=== PATIENT | male | born 1935 | race Caucasian/White ===

== ENCOUNTER 2018-03-09 16:22 | Emergency (ER) | payer MEDICARE ==
[2018-03-09] MEDS ORDERED: Sodium Chloride 0.9% 1000 ML 1,000 ML IV STA (16:47)
--- NOTE | 2018-03-09 16:47 | ERPHSYRPT ---
- History of Present Illness Time Seen by Provider: 03/09/18 16:40 Historian: patient Exam Limitations: no limitations Patient Subjective Stated Complaint: states has been having weakness and diarrhea for three to four days. denies fever. Triage Nursing Assessment: ambulated to room per self. skin w/d, color normal, resp easy. 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 Physician History: 82 y/o type 2 diabetic white male presents with 4 days of weakness and 2 days of diarrhea.pt has not had any vomiting but has had a little nausea. pt denies cp, soa and denies abd pain. Timing/Duration: day(s) (4 days of weakness and 2 days of diarrhea) Activities at Onset: none Abdominal Pain Onset Location: other (no abd pain) Pain Radiation: no radiation Severity of Pain-Max: none Severity of Pain-Current: none Modifying Factors: Improves With: nothing Associated Symptoms: diarrhea, loss of appetite, nausea, weakness, No back, No chest pain, No diaphoresis, No fever/chills, No fatigue, No neck pain, No rash, No shortness of breath, No syncope, No testicular pain, No vomiting Previous symptoms: no prior history Allergies/Adverse Reactions: No Known Drug Allergies Allergy (Verified 03/09/18 16:38) Home Medications: Acetaminophen [Tylenol Extra Strength] 1,000 mg PO DAILY 04/24/14 [History] Metformin HCl 500 mg [Glucophage 500 MG] 1,000 mg PO BID 04/24/14 [History ] Naproxen Sodium 220 mg [Aleve 220 MG] 1 tab PO DAILY 04/24/14 [History] Pravastatin Sodium 40 mg PO HS 04/24/14 [History] Tamsulosin HCl 0.4 mg [Flomax 0.4 MG] 0.4 mg PO DAILY 04/24/14 [History] Hx Tetanus, Diphtheria Vaccination/Date Given: No Hx Influenza Vaccination/Date Given: Yes Hx Pneumococcal Vaccination/Date Given: Yes Immunizations Up to Date: No - Review of Systems Constitutional: Weakness, No Fever, No Chills Eyes: No Symptoms, No Discharge, No Eye Pain Ears, Nose, & Throat: No Symptoms, No Ear Pain, No Nose Congestion, No Mouth Pain, No Painful Swallowing Respiratory: No Symptoms, No Dyspnea, No Stridor, No Wheezing Cardiac: No Symptoms, No Chest Pain, No Palpitations, No Syncope Abdominal/Gastrointestinal: Nausea, Diarrhea, Appetite Changes (not much appetite), No Abdominal Pain, No Vomiting Genitourinary Symptoms: No Symptoms, No Dysuria, No Frequency, No Hematuria Musculoskeletal: No Symptoms, No Back Pain, No Neck Pain, No Deformity, No Fall Skin: No Symptoms Neurological: No Symptoms Psychological: No Symptoms Endocrine: No Symptoms Hematologic/Lymphatic: No Symptoms Immunological/Allergic: No Symptoms All Other Systems: Reviewed and Negative - Past Medical History Pertinent Past Medical History: Yes Neurological History: No Pertinent History ENT History: No Pertinent History Cardiac History: High Cholesterol Respiratory History: No Pertinent History Endocrine Medical History: Diabetes Type II Musculoskeletal History: Arthritis GI Medical History: No Pertinent History History: No Pertinent History Psycho-Social History: No Pertinent History Male Reproductive Disorders: Prostate Problems - Past Surgical History Past Surgical History: Yes Neuro Surgical History: No Pertinent History Cardiac: No Pertinent History Respiratory: No Pertinent History Gastrointestinal: Appendectomy Genitourinary: No Pertinent History Musculoskeletal: Other Male Surgical History: No Pertinent History Other Surgical History: TONSILS. achilles tendon - Social History Smoking Status: Never smoker Exposure to second hand smoke: No Drug Use: none Patient Lives Alone: No - Nursing Vital Signs Nursing Vital Signs: Initial Vital Signs Temperature 99.5 F 03/09/18 16:28 Pulse Rate 100 H 03/09/18 16:28 Respiratory Rate 16 03/09/18 16:28 Blood Pressure 119/79 03/09/18 16:28 O2 Sat by Pulse Oximetry 98 03/09/18 16:28 Pain Scale Pain Intensity 0 - Physical Exam General Appearance: no apparent distress, alert, anxiety Eye Exam: PERRL/EOMI, eyes nml inspection Ears, Nose, Throat Exam: normal ENT inspection, moist mucous membranes Neck Exam: normal inspection, non-tender, supple, full range of motion Respiratory Exam: normal breath sounds, lungs clear, airway intact, No chest tenderness, No respiratory distress, No accessory muscle use, No rhonchi, No wheezing, No stridor Cardiovascular Exam: regular rate/rhythm, normal heart sounds, normal peripheral pulses Gastrointestinal/Abdomen Exam: soft, normal bowel sounds, No tenderness, No guarding, No rebound Rectal Exam: not done Back Exam: normal inspection, normal range of motion, No CVA tenderness, No vertebral tenderness, No muscle spasm Extremity Exam: normal inspection, normal range of motion, pelvis stable Neurologic Exam: alert, oriented x 3, cooperative, mover II-XII nml as tested, normal mood/affect, nml cerebellar function, nml station & gait Skin Exam: normal color, warm, dry Lymphatic Exam: No adenopathy SpO2 Interpretation: normal SpO2: 98 Oxygen Delivery: Room Air - Course Nursing assessment & vital signs reviewed: Yes Ordered Tests: Active Orders 24 hr Category Date Time Status IV Insertion STAT Care 03/09/18 16:47 Active AMYLASE Stat Lab 03/09/18 17:00 Completed CBC W DIFF Stat Lab 03/09/18 17:00 Completed CMP Stat Lab 03/09/18 17:00 Completed LIPASE Stat Lab 03/09/18 17:00 Completed Lactic Acid Stat Lab 03/09/18 16:47 Completed UA W/RFX UR CULTURE Stat Lab 03/09/18 18:22 Results Medication Summary Discontinued Medications Generic Name Dose Route Start Last Admin Trade Name Freq PRN Reason Stop Dose Admin Sodium Chloride 1,000 mls @ 999 mls/hr 03/09/18 16:47 03/09/18 16:58 Sodium Chloride 0.9% 1000 Ml IV 03/09/18 17:47 999 mls/hr .Q1H1M STA Administration Sodium Chloride Confirm 03/09/18 16:56 Sodium Chloride 0.9% 1000 Ml Administered 03/09/18 16:57 Dose 1,000 mls @ ud .ROUTE .STK-MED ONE Lab/Rad Data: Laboratory Result Diagrams 03/09/18 17:00 03/09/18 17:00 Laboratory Results 03/09/18 03/09/18 03/09/18 Range/Units 18:22 17:00 17:00 WBC 6.4 (4.0-10.5) K/mm3 RBC 4.38 (4.1-5.6) M/mm3 Hgb 14.6 (12.5-18.0) gm/dl Hct 42.0 (42-50) % MCV 95.9 (78-100) fl MCH 33.3 H (26-32) pg MCHC 34.8 (32-36) g/dl RDW 13.6 (11.5-14.0) % Plt Count 141 L (150-450) K/mm3 MPV 9.4 (6-9.5) fl Gran % 73.8 H (36.0-66.0) % Eos # (Auto) 0.07 (0-0.5) Absolute Lymphs (auto) 0.99 L (1.0-4.6) Absolute Monos (auto) 0.58 (0.0-1.3) Lymphocytes % 15.5 L (24.0-44.0) % Monocytes % 9.1 (0.0-12.0) % Eosinophils % 1.1 (0.00-5.0) % Basophils % 0.5 (0.0-0.4) % Absolute Granulocytes 4.71 (1.4-6.9) Basophils # 0.03 (0-0.4) Sodium 134 L* (137-145) mmol/L Potassium 4.6 (3.5-5.1) mmol/L Chloride 104 (98-107) mmol/L Carbon Dioxide 22 (22-30) mmol/L Anion Gap 13.2 (5-15) MEQ/L BUN 24 H (9-20) mg/dL Creatinine 0.78 (0.66-1.25) mg/dL Estimated GFR > 60.0 ML/MIN Glucose 128 H (74-106) mg/dL Lactic Acid (0.4-2.0) Calcium 8.8 (8.4-10.2) mg/dL Total Bilirubin 0.50 (0.2-1.3) mg/dL AST 34 (17-59) U/L ALT 15 (0-50) U/L Alkaline Phosphatase 77 (38-126) U/L Serum Total Protein 6.2 L (6.3-8.2) g/dL Albumin 3.6 (3.5-5.0) g/dL Amylase 47 (30-110) U/L Lipase 52 (23-300) U/L Urine Color YELLOW (YELLOW) Urine Appearance SLIGHTLY CLOUDY (CLEAR) Urine pH 5.0 (5-6) Ur Specific [place] 1.025 (1.005-1.025) Urine Protein NEGATIVE (Negative) Urine Ketones TRACE (NEGATIVE) Urine Blood NEGATIVE (0-5) Bronson/ul Urine Nitrite NEGATIVE (NEGATIVE) Urine Bilirubin NEGATIVE (NEGATIVE) Urine Urobilinogen NEGATIVE (0-1) mg/dL Ur Leukocyte Esterase NEGATIVE (NEGATIVE) Urine WBC (Auto) 6-10 (0-5) /HPF Urine RBC (Auto) 3-5 (0-2) /HPF U Hyaline Cast (Auto) 3-5 (0-2) /LPF U Epithel Cells (Auto) Pending Other Casts (Auto) NEGATIVE (NEGATIVE) /LPF Urine Mucus (Auto) MODERATE (NEGATIVE) /HPF Urine Culture Reflexed NO (NO) Urine Glucose NEGATIVE (NEGATIVE) mg/dL 03/09/18 Range/Units 16:47 WBC (4.0-10.5) K/mm3 RBC (4.1-5.6) M/mm3 Hgb (12.5-18.0) gm/dl Hct (42-50) % MCV (78-100) fl MCH (26-32) pg MCHC (32-36) g/dl RDW (11.5-14.0) % Plt Count (150-450) K/mm3 MPV (6-9.5) fl Gran % (36.0-66.0) % Eos # (Auto) (0-0.5) Absolute Lymphs (auto) (1.0-4.6) Absolute Monos (auto) (0.0-1.3) Lymphocytes % (24.0-44.0) % Monocytes % (0.0-12.0) % Eosinophils % (0.00-5.0) % Basophils % (0.0-0.4) % Absolute Granulocytes (1.4-6.9) Basophils # (0-0.4) Sodium (137-145) mmol/L Potassium (3.5-5.1) mmol/L Chloride (98-107) mmol/L Carbon Dioxide (22-30) mmol/L Anion Gap (5-15) MEQ/L BUN (9-20) mg/dL Creatinine (0.66-1.25) mg/dL Estimated GFR ML/MIN Glucose (74-106) mg/dL Lactic Acid 1.1 (0.4-2.0) Calcium (8.4-10.2) mg/dL Total Bilirubin (0.2-1.3) mg/dL AST (17-59) U/L ALT (0-50) U/L Alkaline Phosphatase (38-126) U/L Serum Total Protein (6.3-8.2) g/dL Albumin (3.5-5.0) g/dL Amylase (30-110) U/L Lipase (23-300) U/L Urine Color (YELLOW) Urine Appearance (CLEAR) Urine pH (5-6) Ur Specific [place] (1.005-1.025) Urine Protein (Negative) Urine Ketones (NEGATIVE) Urine Blood (0-5) Bronson/ul Urine Nitrite (NEGATIVE) Urine Bilirubin (NEGATIVE) Urine Urobilinogen (0-1) mg/dL Ur Leukocyte Esterase (NEGATIVE) Urine WBC (Auto) (0-5) /HPF Urine RBC (Auto) (0-2) /HPF U Hyaline Cast (Auto) (0-2) /LPF U Epithel Cells (Auto) Other Casts (Auto) (NEGATIVE) /LPF Urine Mucus (Auto) (NEGATIVE) /HPF Urine Culture Reflexed (NO) Urine Glucose (NEGATIVE) mg/dL - Progress Progress: unchanged, re-examined Counseled pt/family regarding: lab results, diagnosis, need for follow-up - Departure Time of Disposition: 18:47 Departure Disposition: Home Clinical Impression: Colitis Condition: Stable Critical Care Time: No Referrals: ROWENA VIEYRA MD [Primary Care Provider] - Additional Instructions: drink plenty of fluids. take medications as prescribed. follow up with primary doctor for further management and referral for colonoscopy as indicated. return to ED if symptoms worsen Prescriptions: Metronidazole 500 mg [Flagyl 500 MG] 500 mg PO TID #21 tablet Ondansetron HCl [Zofran] 4 mg PO TID PRN #10 tablet PRN Reason: Nausea/Vomiting
[2018-03-09] MEDS ORDERED: Sodium Chloride 0.9% 1000 ML 1,000 ML ONE (16:56)
[2018-03-09 17:08] LABS: BASOPHIL % 0.5 % (0.0-0.4); Basophil (Absolute #) 0.03 (0-0.4); Eosinophil % 1.1 % (0.00-5.0); Eosinophil (Absolute #) 0.07 (0-0.5); Granulocyte Absolute (ANC) 4.71 (1.4-6.9); Granulocytes % 73.8 % (36.0-66.0); Hemoglobin 14.6 gm/dl (12.5-18.0); Lymphocyte (Absolute #) 0.99 (1.0-4.6); Lymphocytes % 15.5 % (24.0-44.0); Mean Cell Volume 95.9 fl (78-100); Mean Corpuscular Hemoglobin 33.3 pg (26-32); Mean Corpuscular Hgb Concent. 34.8 g/dl (32-36); Mean Platelet Volume 9.4 fl (6-9.5); Monocyte (Absolute #) 0.58 (0.0-1.3); Monocytes % 9.1 % (0.0-12.0); Platelet Count 141 K/mm3 (150-450); Red Blood Count 4.38 M/mm3 (4.1-5.6); Red Cell Distribution Width 13.6 % (11.5-14.0); White Blood Count 6.4 K/mm3 (4.0-10.5)
[2018-03-09 17:32] LABS: ALBUMIN 3.6 g/dL (3.5-5.0); ALKALINE PHOSPHATASE 77 U/L (38-126); AMYLASE 47 U/L (30-110); ANION GAP 13.2 MEQ/L (5-15); BLOOD UREA NITROGEN 24 mg/dL (9-20); CHLORIDE 104 mmol/L (98-107); Calcium 8.8 mg/dL (8.4-10.2); Carbon Dioxide 22 mmol/L (22-30); Creatinine 1 0.78 mg/dL (0.66-1.25); Glucose 128 mg/dL (74-106); LIPASE 52 U/L (23-300); Potassium 4.6 mmol/L (3.5-5.1); SGOT/AST 34 U/L (17-59); SGPT/ALT 15 U/L (0-50); SODIUM 134 mmol/L (137-145); Total Protein 6.2 g/dL (6.3-8.2)
[2018-03-09 18:33] LABS: Appearance SLIGHTLY CLOUDY (CLEAR); Bilirubin NEGATIVE (NEGATIVE); Blood NEGATIVE Ery/ul (0-5); Glucose NEGATIVE (NEGATIVE); Ketones TRACE (NEGATIVE); Leukocyte Esterase NEGATIVE (NEGATIVE); Nitrite NEGATIVE (NEGATIVE); Protein,Urine Dip NEGATIVE (Negative); Specific Gravity 1.025 (1.005-1.025); Urobilinogen NEGATIVE mg/dL (0-1)
[2018-03-09] MEDS ORDERED: Flagyl 500 MG PO ONE (18:50)
[2018-03-09] MEDS ORDERED: ZOFRAN ODT 4 MG PO ONE (18:50)
[2018-03-09] MEDS ORDERED: ZOFRAN ODT 4 MG ONE (18:53)
[2018-03-09] MEDS ORDERED: Flagyl 500 MG ONE (18:53)
[2018-03-09 18:58] VITALS: BP 138/84
[2018-03-09 19:00] VITALS: PULSE 74; O2SAT 96
== END 2018-03-09 19:09 | disposition home or self-care (01) ==
LOC: ED 16:22
DX: K52.9 Noninfective gastroenteritis and colitis, unspecified (principal); R53.1 Weakness; R11.0 Nausea; Z79.899 Other long term (current) drug therapy; E11.9 Type 2 diabetes mellitus without complications; Z79.84 Long term (current) use of oral hypoglycemic drugs
CPT/HCPCS: 36000; 36415; 80053; 81001; 82150; 83605; 83690; 85025; 96360; 99284; Q0162; A9270-GY

== ENCOUNTER 2019-01-04 19:02 | Inpatient (IN) | payer MEDICARE ==
--- NOTE | 2019-01-04 19:29 | ERPHSYRPT ---
- History of Present Illness Time Seen by Provider: 01/04/19 19:29 Source: patient, family Exam Limitations: no limitations Patient Subjective Stated Complaint: hypotension Triage Nursing Assessment: Patient brought back to ED via w/c and transferred to bed with assist of 1. Patient complains of low blood pressure for a few hours. Patient states he has felt light headed and unable to stand well. Patient states he has been nauseous and vomitted X 1. Patient's lungs clear a/ p lalo. No edema noted. Heart tones audible. Patient denies pain or discomfort. Patient states he had a cardiac cath 3 weeks ago and received five stents at [facility] by Dr. Peralta. Physician History: 83 y/o white male with h/o niddm presents with weakness and assoc nausea with vomiting x1 today. no cp, no soa, no abd pain. pt is on anticoag tx. in the last 3 months pt had 5 cardiac stents placed by dr. peralta. pt doesnt eat or drink much ordinarily but less today. pt has not been vomiting, pooping or peeing blood. Timing/Duration: today, worse Severity: moderate Associated Symptoms: nausea, vomiting, loss of appetite, weakness, No abdominal pain, No shortness of breath, No chest pain Allergies/Adverse Reactions: No Known Drug Allergies Allergy (Verified 01/04/19 19:18) Home Medications: Tamsulosin HCl 0.4 mg [Flomax 0.4 MG] 0.4 mg PO DAILY 04/24/14 [History] Atorvastatin Calcium [Lipitor 20MG Tablet] 20 mg PO DAILY 01/04/19 [History] Clopidogrel Bisulfate [Clopidogrel] 75 mg PO DAILY 01/04/19 [History] Diphenoxylate HCl/Atropine [Diphenoxylate-Atrop 2.5-0.025] 1 each PO DAILY 01/04 [History] Finasteride 5 mg PO DAILY 01/04/19 [History] Glipizide/Metformin HCl [Glipizide-Metformin 5-500 mg] 1 each PO TID 01/04/19 [ History] Lisinopril 20 mg [Zestril 20 MG] 20 mg PO DAILY 01/04/19 [History] Sildenafil Citrate [Sildenafil] 20 mg PO UD 01/04/19 [History] Tadalafil 5 mg PO DAILY 01/04/19 [History] Hx Tetanus, Diphtheria Vaccination/Date Given: No Hx Influenza Vaccination/Date Given: Yes Hx Pneumococcal Vaccination/Date Given: Yes Immunizations Up to Date: Yes - Review of Systems Constitutional: Weakness Eyes: No Symptoms Ears, Nose, & Throat: No Symptoms Respiratory: No Symptoms Cardiac: No Symptoms Abdominal/Gastrointestinal: Nausea, Vomiting, No Abdominal Pain Genitourinary Symptoms: No Symptoms Musculoskeletal: No Symptoms Skin: No Symptoms Neurological: No Symptoms Psychological: No Symptoms Endocrine: No Symptoms Hematologic/Lymphatic: No Symptoms Immunological/Allergic: No Symptoms All Other Systems: Reviewed and Negative - Past Medical History Pertinent Past Medical History: Yes Neurological History: No Pertinent History ENT History: No Pertinent History Cardiac History: High Cholesterol Respiratory History: No Pertinent History Endocrine Medical History: Diabetes Type II Musculoskeletal History: Arthritis GI Medical History: No Pertinent History History: No Pertinent History Psycho-Social History: No Pertinent History Male Reproductive Disorders: Prostate Problems - Past Surgical History Past Surgical History: Yes Neuro Surgical History: No Pertinent History Cardiac: Cardiac Catheterization, Cardiac Stent Respiratory: No Pertinent History Gastrointestinal: Appendectomy Genitourinary: No Pertinent History Musculoskeletal: Other Male Surgical History: No Pertinent History Other Surgical History: TONSILS. achilles tendon - Social History Smoking Status: Never smoker Exposure to second hand smoke: No Drug Use: none Patient Lives Alone: No - Nursing Vital Signs Nursing Vital Signs: Initial Vital Signs Temperature 100.5 F 01/04/19 19:18 Pulse Rate 106 H 01/04/19 19:18 Respiratory Rate 15 01/04/19 19:18 Blood Pressure 85/52 01/04/19 19:18 O2 Sat by Pulse Oximetry 95 01/04/19 19:18 Pain Scale Pain Intensity 0 - Physical Exam General Appearance: no apparent distress, alert, anxiety Eye Exam: PERRL/EOMI, eyes nml inspection Ears, Nose, Throat Exam: normal ENT inspection, moist mucous membranes Neck Exam: normal inspection, non-tender, supple, full range of motion Respiratory Exam: normal breath sounds, lungs clear, airway intact, No chest tenderness, No respiratory distress Cardiovascular Exam: regular rate/rhythm, normal heart sounds, normal peripheral pulses Gastrointestinal/Abdomen Exam: soft, normal bowel sounds, No tenderness Rectal Exam: not done Back Exam: normal inspection, normal range of motion, No CVA tenderness, No vertebral tenderness Extremity Exam: normal inspection, normal range of motion, pelvis stable Neurologic Exam: alert, oriented x 3, cooperative, mask inspector II-XII nml as tested, normal mood/affect, nml cerebellar function, sensation nml Skin Exam: normal color, warm, dry Lymphatic Exam: No adenopathy SpO2 Interpretation: borderline oxygenation SpO2: 95 O2 Delivery: Room Air - Course Nursing assessment & vital signs reviewed: Yes EKG Interpreted by Me: RATE (100), Sinus Rhythm, Other (sI/qIII pattern. new 1st degree av block compared to ekg dated 04/24/14) Ordered Tests: Active Orders 24 hr Category Date Time Status Data Transcriber STAT Care 01/04/19 19:45 Active EKG-ER Only STAT Care 01/04/19 19:44 Active CHEST 1 VIEW (PORTABLE) Stat Exams 01/04/19 19:45 Taken CHEST WITH CONTRAST [CT] Stat Exams 01/04/19 20:44 Taken BLOOD CULTURE Stat Lab 01/04/19 20:07 Received CBC W DIFF Stat Lab 01/04/19 20:07 Completed CMP Stat Lab 01/04/19 20:07 Completed CULTURE,URINE Stat Lab 01/04/19 21:54 Received D-DIMER QUANTITATION Stat Lab 01/04/19 20:07 Completed Lactic Acid Stat Lab 01/04/19 20:32 Completed Lactic Acid Stat Lab 01/04/19 23:10 Completed NT PRO BNP Stat Lab 01/04/19 20:07 Completed PROTIME WITH INR Stat Lab 01/04/19 20:07 Completed TROPONIN Q3H Lab 01/04/19 20:07 Completed TROPONIN Q3H Lab 01/04/19 22:32 Completed TROPONIN Q3H Lab 01/05/19 01:45 Ordered TROPONIN Q3H Lab 01/05/19 04:45 Ordered TROPONIN Q3H Lab 01/05/19 07:45 Ordered UA W/RFX UR CULTURE Stat Lab 01/04/19 21:54 Completed Transfer Order Routine Transfer 01/04/19 Ordered Medication Summary Generic Name Dose Route Start Last Admin Trade Name Freq PRN Reason Stop Dose Admin Levofloxacin/Dextrose 500 mg in 100 mls @ 100 mls/hr 01/04/19 22:50 01/04/19 22:58 Levofloxacin 500mg/100ml D5w IV 01/04/19 23:49 100 mls/hr STAT STA 100 mls/hr Administration Discontinued Medications Generic Name Dose Route Start Last Admin Trade Name Martha PRN Reason Stop Dose Admin Sodium Chloride 1,000 mls @ 999 mls/hr 01/04/19 19:44 01/04/19 21:01 Sodium Chloride 0.9% 1000 Ml IV 01/04/19 20:44 Infused .Q1H1M STA Infusion Sodium Chloride Confirm 01/04/19 19:51 Sodium Chloride 0.9% 1000 Ml Administered 01/04/19 19:52 Dose 1,000 mls @ ud .ROUTE .STK-MED ONE Meropenem 1 g/ Sodium Chloride 100 mls @ 200 mls/hr 01/04/19 20:45 01/04/19 22:36 IV 01/04/19 21:14 Infused STAT STA Infusion Sodium Chloride 1,000 mls @ 999 mls/hr 01/04/19 20:45 01/04/19 22:36 Sodium Chloride 0.9% 1000 Ml IV 01/04/19 21:45 Infused .Q1H1M STA Infusion Sodium Chloride Confirm 01/04/19 21:03 Sodium Chloride 0.9% 100 Ml Ivpb Administered 01/04/19 21:04 Dose 100 mls @ ud IV .STK-MED ONE Sodium Chloride Confirm 01/04/19 21:03 Sodium Chloride 0.9% 1000 Ml Administered 01/04/19 21:04 Dose 1,000 mls @ ud .ROUTE .STK-MED ONE Levofloxacin/Dextrose Confirm 01/04/19 22:57 Levofloxacin 500mg/100ml D5w Administered 01/04/19 22:58 Dose 500 mg in 100 mls @ ud IV .STK-MED ONE Meropenem Confirm 01/04/19 21:02 Merrem 1 Gm Administered 01/04/19 21:03 Dose 1 g IV .STK-MED ONE Ondansetron HCl 4 mg 01/04/19 19:46 01/04/19 19:53 Zofran 4 Mg/2 Ml Vial IV 01/04/19 19:47 4 mg STAT ONE Administration Ondansetron HCl Confirm 01/04/19 19:51 Zofran 4 Mg/2 Ml Vial Administered 01/04/19 19:52 Dose 4 mg .ROUTE .STK-MED ONE Lab/Rad Data: Laboratory Result Diagrams 01/04/19 20:07 01/04/19 20:07 Laboratory Results 01/04/19 01/04/19 01/04/19 Range/Units 23:10 22:32 21:54 WBC (4.0-10.5) K/mm3 RBC (4.1-5.6) M/mm3 Hgb (12.5-18.0) gm/dl Hct (42-50) % MCV (78-100) fl MCH (26-32) pg MCHC (32-36) g/dl RDW (11.5-14.0) % Plt Count (150-450) K/mm3 MPV (6-9.5) fl Gran % (36.0-66.0) % Eos # (Auto) (0-0.5) Absolute Lymphs (auto) (1.0-4.6) Absolute Monos (auto) (0.0-1.3) Lymphocytes % (24.0-44.0) % Monocytes % (0.0-12.0) % Eosinophils % (0.00-5.0) % Basophils % (0.0-0.4) % Absolute Granulocytes (1.4-6.9) Basophils # (0-0.4) PT (8.83-12.87) SECONDS INR (0.8-3.0) D-Dimer (215-500) ng/mL Sodium (137-145) mmol/L Potassium (3.5-5.1) mmol/L Chloride (98-107) mmol/L Carbon Dioxide (22-30) mmol/L Anion Gap (5-15) MEQ/L BUN (9-20) mg/dL Creatinine (0.66-1.25) mg/dL Estimated GFR ML/MIN Glucose (74-106) mg/dL Lactic Acid 1.0 (0.4-2.0) Calcium (8.4-10.2) mg/dL Total Bilirubin (0.2-1.3) mg/dL AST (17-59) U/L ALT (0-50) U/L Alkaline Phosphatase (38-126) U/L Troponin I 0.014 (0.000-0.034) ng/mL NT-Pro-B Natriuret Pep (0-1800) pg/mL Serum Total Protein (6.3-8.2) g/dL Albumin (3.5-5.0) g/dL Urine Color EMRE (YELLOW) Urine Appearance CLOUDY (CLEAR) Urine pH 5.0 (5-6) Ur Specific [place] 1.035 (1.005-1.025) Urine Protein 100 (Negative) Urine Ketones TRACE (NEGATIVE) Urine Blood MODERATE (0-5) Bronson/ul Urine Nitrite NEGATIVE (NEGATIVE) Urine Bilirubin NEGATIVE (NEGATIVE) Urine Urobilinogen NEGATIVE (0-1) mg/dL Ur Leukocyte Esterase MODERATE (NEGATIVE) Urine WBC (Auto) >100 (0-5) /HPF Urine RBC (Auto) 26-50 (0-2) /HPF U Hyaline Cast (Auto) 3-5 (0-2) /LPF U Epithel Cells (Auto) RARE (FEW) /HPF Urine Bacteria (Auto) RARE (NEGATIVE) /HPF Urine Mucus (Auto) MANY (NEGATIVE) /HPF Urine Culture Reflexed YES (NO) Urine Glucose NEGATIVE (NEGATIVE) mg/dL Slides for Path Review 01/04/19 01/04/19 01/04/19 Range/Units 20:32 20:07 20:07 WBC (4.0-10.5) K/mm3 RBC (4.1-5.6) M/mm3 Hgb (12.5-18.0) gm/dl Hct (42-50) % MCV (78-100) fl MCH (26-32) pg MCHC (32-36) g/dl RDW (11.5-14.0) % Plt Count (150-450) K/mm3 MPV (6-9.5) fl Gran % (36.0-66.0) % Eos # (Auto) (0-0.5) Absolute Lymphs (auto) (1.0-4.6) Absolute Monos (auto) (0.0-1.3) Lymphocytes % (24.0-44.0) % Monocytes % (0.0-12.0) % Eosinophils % (0.00-5.0) % Basophils % (0.0-0.4) % Absolute Granulocytes (1.4-6.9) Basophils # (0-0.4) PT 13.6 H (8.83-12.87) SECONDS INR 1.20 (0.8-3.0) D-Dimer 1139 H* (215-500) ng/mL Sodium (137-145) mmol/L Potassium (3.5-5.1) mmol/L Chloride (98-107) mmol/L Carbon Dioxide (22-30) mmol/L Anion Gap (5-15) MEQ/L BUN (9-20) mg/dL Creatinine (0.66-1.25) mg/dL Estimated GFR ML/MIN Glucose (74-106) mg/dL Lactic Acid 2.2 H (0.4-2.0) Calcium (8.4-10.2) mg/dL Total Bilirubin (0.2-1.3) mg/dL AST (17-59) U/L ALT (0-50) U/L Alkaline Phosphatase (38-126) U/L Troponin I 0.018 (0.000-0.034) ng/mL NT-Pro-B Natriuret Pep (0-1800) pg/mL Serum Total Protein (6.3-8.2) g/dL Albumin (3.5-5.0) g/dL Urine Color (YELLOW) Urine Appearance (CLEAR) Urine pH (5-6) Ur Specific [place] (1.005-1.025) Urine Protein (Negative) Urine Ketones (NEGATIVE) Urine Blood (0-5) Bronson/ul Urine Nitrite (NEGATIVE) Urine Bilirubin (NEGATIVE) Urine Urobilinogen (0-1) mg/dL Ur Leukocyte Esterase (NEGATIVE) Urine WBC (Auto) (0-5) /HPF Urine RBC (Auto) (0-2) /HPF U Hyaline Cast (Auto) (0-2) /LPF U Epithel Cells (Auto) (FEW) /HPF Urine Bacteria (Auto) (NEGATIVE) /HPF Urine Mucus (Auto) (NEGATIVE) /HPF Urine Culture Reflexed (NO) Urine Glucose (NEGATIVE) mg/dL Slides for Path Review 01/04/19 01/04/19 Range/Units 20:07 20:07 WBC 25.9 H* (4.0-10.5) K/mm3 RBC 3.96 L (4.1-5.6) M/mm3 Hgb 13.2 (12.5-18.0) gm/dl Hct 37.9 L (42-50) % MCV 95.7 (78-100) fl MCH 33.3 H (26-32) pg MCHC 34.8 (32-36) g/dl RDW 13.9 (11.5-14.0) % Plt Count 192 (150-450) K/mm3 MPV 9.1 (6-9.5) fl Gran % 88.0 H (36.0-66.0) % Eos # (Auto) 0.02 (0-0.5) Absolute Lymphs (auto) 1.27 (1.0-4.6) Absolute Monos (auto) 1.79 H (0.0-1.3) Lymphocytes % 4.9 L (24.0-44.0) % Monocytes % 6.9 (0.0-12.0) % Eosinophils % 0.1 (0.00-5.0) % Basophils % 0.1 (0.0-0.4) % Absolute Granulocytes 22.80 H (1.4-6.9) Basophils # 0.02 (0-0.4) PT (8.83-12.87) SECONDS INR (0.8-3.0) D-Dimer (215-500) ng/mL Sodium 134 L (137-145) mmol/L Potassium 4.6 (3.5-5.1) mmol/L Chloride 100 (98-107) mmol/L Carbon Dioxide 25 (22-30) mmol/L Anion Gap 13.3 (5-15) MEQ/L BUN 25 H (9-20) mg/dL Creatinine 1.13 (0.66-1.25) mg/dL Estimated GFR > 60.0 ML/MIN Glucose 211 H (74-106) mg/dL Lactic Acid (0.4-2.0) Calcium 9.1 (8.4-10.2) mg/dL Total Bilirubin 0.80 (0.2-1.3) mg/dL AST 22 (17-59) U/L ALT 16 (0-50) U/L Alkaline Phosphatase 63 (38-126) U/L Troponin I (0.000-0.034) ng/mL NT-Pro-B Natriuret Pep 1440 (0-1800) pg/mL Serum Total Protein 6.6 (6.3-8.2) g/dL Albumin 3.7 (3.5-5.0) g/dL Urine Color (YELLOW) Urine Appearance (CLEAR) Urine pH (5-6) Ur Specific [place] (1.005-1.025) Urine Protein (Negative) Urine Ketones (NEGATIVE) Urine Blood (0-5) Bronson/ul Urine Nitrite (NEGATIVE) Urine Bilirubin (NEGATIVE) Urine Urobilinogen (0-1) mg/dL Ur Leukocyte Esterase (NEGATIVE) Urine WBC (Auto) (0-5) /HPF Urine RBC (Auto) (0-2) /HPF U Hyaline Cast (Auto) (0-2) /LPF U Epithel Cells (Auto) (FEW) /HPF Urine Bacteria (Auto) (NEGATIVE) /HPF Urine Mucus (Auto) (NEGATIVE) /HPF Urine Culture Reflexed (NO) Urine Glucose (NEGATIVE) mg/dL Slides for Path Review YES - Progress Progress: improved, re-examined Progress Note: 01/04/19 23:33 cta chest-report given as pulmonary fibrosis,scarring spoke with dr. vieyra. i reviewed pt hx, condition, labs, ekg, xray results. he accepts pt for admission. continue meropenem until cx returns Discussed with : Lane Counseled pt/family regarding: lab results, diagnosis, need for follow-up, rad results - Departure Departure Disposition: In-patient Admission Clinical Impression: Sepsis, Hypotension Condition: Stable Critical Care Time: Yes Critical Care Time(excluding separately billable procedures): 30-74 minutes Referrals: ROWENA VIEYRA MD [Primary Care Provider] -
[2019-01-04] MEDS ORDERED: Sodium Chloride 0.9% 1000 ML 1,000 ML IV STA ×2 (19:44→20:45)
[2019-01-04] MEDS ORDERED: Zofran 4 MG/2 ML VIAL IV ONE (19:46)
[2019-01-04] MEDS ORDERED: Zofran 4 MG/2 ML VIAL ONE (19:51)
[2019-01-04] MEDS ORDERED: Sodium Chloride 0.9% 1000 ML 1,000 ML ONE ×2 (19:51→21:03)
[2019-01-04 20:18] LABS: BASOPHIL % 0.1 % (0.0-0.4); Basophil (Absolute #) 0.02 (0-0.4); Eosinophil % 0.1 % (0.00-5.0); Eosinophil (Absolute #) 0.02 (0-0.5); Hematocrit 37.9 % (42-50); Hemoglobin 13.2 gm/dl (12.5-18.0); Lymphocyte (Absolute #) 1.27 (1.0-4.6); Lymphocytes % 4.9 % (24.0-44.0); Mean Cell Volume 95.7 fl (78-100); Mean Corpuscular Hemoglobin 33.3 pg (26-32); Mean Corpuscular Hgb Concent. 34.8 g/dl (32-36); Mean Platelet Volume 9.1 fl (6-9.5); Monocyte (Absolute #) 1.79 (0.0-1.3); Monocytes % 6.9 % (0.0-12.0); Platelet Count 192 K/mm3 (150-450); Red Blood Count 3.96 M/mm3 (4.1-5.6); Red Cell Distribution Width 13.9 % (11.5-14.0)
[2019-01-04 20:19] LABS: INR 1.2 (0.8-3.0); PROTIME 13.6 SECONDS (8.83-12.87); White Blood Count 25.9 K/mm3 (4.0-10.5)
[2019-01-04 20:30] LABS: ALBUMIN 3.7 g/dL (3.5-5.0); ALKALINE PHOSPHATASE 63 U/L (38-126); ANION GAP 13.3 MEQ/L (5-15); BLOOD UREA NITROGEN 25 mg/dL (9-20); CHLORIDE 100 mmol/L (98-107); Calcium 9.1 mg/dL (8.4-10.2); Carbon Dioxide 25 mmol/L (22-30); Creatinine 1 1.13 mg/dL (0.66-1.25); Glucose 211 mg/dL (74-106); NT PRO BNP 1440 pg/mL (0-1800); Potassium 4.6 mmol/L (3.5-5.1); SGOT/AST 22 U/L (17-59); SGPT/ALT 16 U/L (0-50); SODIUM 134 mmol/L (137-145); Total Protein 6.6 g/dL (6.3-8.2)
[2019-01-04 20:41] LABS: Lactic Acid 2.2 (0.4-2.0)
[2019-01-04] MEDS ORDERED: Merrem 1 GM 1 G in Sodium Chloride 100ML MINI-BAG PLUS 100 ML IV STA (20:45)
[2019-01-04] MEDS ORDERED: Merrem 1 GM IV ONE (21:02)
[2019-01-04] MEDS ORDERED: Sodium Chloride 0.9% 100 ML IVPB 100 ML IV ONE (21:03)
[2019-01-04 22:00] LABS: Appearance CLOUDY (CLEAR); Bacteria RARE /HPF (NEGATIVE); Bilirubin NEGATIVE (NEGATIVE); Blood MODERATE Ery/ul (0-5); Epithelial Cells RARE /HPF (FEW); Glucose NEGATIVE (NEGATIVE); Ketones TRACE (NEGATIVE); Leukocyte Esterase MODERATE (NEGATIVE); Mucus MANY /HPF (NEGATIVE); Nitrite NEGATIVE (NEGATIVE); Protein,Urine Dip 100 (Negative); RBC 26-50 /HPF (0-2); Specific Gravity 1.035 (1.005-1.025); Urobilinogen NEGATIVE mg/dL (0-1); WBC >100 /HPF (0-5)
[2019-01-04] MEDS ORDERED: Levofloxacin 500MG/100ML D5W 500 MG/100 ML BAG IV STA (22:50)
[2019-01-04] MEDS ORDERED: Levofloxacin 500MG/100ML D5W 500 MG/100 ML BAG IV ONE (22:57)
[2019-01-04 23:04] LABS: Slide Review 1 YES
[2019-01-05] MEDS ORDERED: Zofran 4 MG/2 ML VIAL IV PRN (00:09)
[2019-01-05] MEDS ORDERED: TYLENOL 325 MG PO PRN (00:09)
[2019-01-05] MEDS: Sodium Chloride 0.9% 1000 ML 1,000 ML IV SCH ×3 (00:24→21:24)
[2019-01-05 05:10] LABS: BASOPHIL % 0.1 % (0.0-0.4); Basophil (Absolute #) 0.02 (0-0.4); Eosinophil % 0.1 % (0.00-5.0); Eosinophil (Absolute #) 0.02 (0-0.5); Granulocyte Absolute (ANC) 19.13 (1.4-6.9); Granulocytes % 87.3 % (36.0-66.0); Hematocrit 33.8 % (42-50); Hemoglobin 11.5 gm/dl (12.5-18.0); Lymphocyte (Absolute #) 1.39 (1.0-4.6); Lymphocytes % 6.3 % (24.0-44.0); Mean Cell Volume 97.1 fl (78-100); Mean Platelet Volume 8.8 fl (6-9.5); Monocyte (Absolute #) 1.37 (0.0-1.3); Monocytes % 6.2 % (0.0-12.0); Platelet Count 170 K/mm3 (150-450); Red Blood Count 3.48 M/mm3 (4.1-5.6); Red Cell Distribution Width 14.2 % (11.5-14.0); White Blood Count 21.9 K/mm3 (4.0-10.5)
[2019-01-05 05:21] LABS: ALKALINE PHOSPHATASE 52 U/L (38-126); ANION GAP 8.4 MEQ/L (5-15); BLOOD UREA NITROGEN 23 mg/dL (9-20); CHLORIDE 104 mmol/L (98-107); Calcium 8.1 mg/dL (8.4-10.2); Carbon Dioxide 26 mmol/L (22-30); Creatinine 1 0.88 mg/dL (0.66-1.25); Glucose 169 mg/dL (74-106); Potassium 4.1 mmol/L (3.5-5.1); SGOT/AST 17 U/L (17-59); SGPT/ALT 13 U/L (0-50); SODIUM 134 mmol/L (137-145); Total Protein 5.7 g/dL (6.3-8.2)
[2019-01-05] MEDS ORDERED: Merrem 1 GM IV ONE (07:03)
[2019-01-05] MEDS ORDERED: Sodium Chloride 0.9% 100 ML IVPB 100 ML IV ONE (07:03)
[2019-01-05] MEDS: Merrem 1 GM 1 G in Sodium Chloride 100ML MINI-BAG PLUS 100 ML IV SCH ×3 (07:06→21:25)
--- NOTE | 2019-01-05 08:13 | XRAY ---
Indication: Fever. Hypotension. Comparison: October 04, 2018. Portable chest demonstrates minimal left base fibrosis/scarring. No focal infiltrate, consolidation, or large effusion. Heart and mediastinal structures within normal limits. Bony thorax intact again with degenerative changes and old right rib fractures. Impression: Nonacute chest with chronic features.
--- NOTE | 2019-01-05 08:18 | XRAY ---
Indication: Elevated d-dimer. Elevated WBC. Multiple contiguous axial images obtained through the chest using 80 cc Isovue-370 contrast and PE protocol. Comparison: None There is satisfactory opacification of the pulmonary arteries. However respiration artifact limits evaluation of the more distal lobar and segmental branches. No obvious central pulmonary embolus. Heart is not enlarged. Aorta is normal in course and caliber. Left perihilar calcified nodes. No pathologic mediastinal/hilar lymphadenopathy. Examination of the lung parenchyma demonstrates mild bilateral dependent atelectasis, scattered fibrosis/scarring, and left upper lobe calcified granuloma. No suspicious pulmonary mass, infiltrate, or effusion. Bony thorax demonstrates mild degenerative changes throughout the spine, moderate/advanced degenerative changes both shoulders, and old right 4/5 rib fractures. Limited upper abdomen demonstrates a few calcified splenic granulomas. Impression: 1. Pulmonary embolus evaluation limited by respiration artifact. No obvious central pulmonary embolus. 2. No acute cardiopulmonary mellitus. 3. Evidence for old granulomatous disease. CTDI 23.69
--- NOTE | 2019-01-05 09:42 | PCM.HP ---
History of Present Illness - Chief Complaint Chief Complaint: sepsis, hypotension History of Present Illness: is a 83 year old male who presented to the ER with profound weakness and feeling ill, he denied any specific complaints of dysuria, has a hx of BPH with urinary retention following a recent cardiac cath. he has stents x 5, denies chest pain. no known fever, vomited x 1 yesterday. - Review of Systems Constitutional: Chills, Weakness Respiratory: No Cough, No Short Of Breath Cardiac: No Chest Pain, No Edema, No Syncope Abdominal/Gastrointestinal: Vomiting, No Abdominal Pain, No Nausea, No Diarrhea Genitourinary Symptoms: No Dysuria, No Frequency Skin: No Rash Neurological: No Symptoms All Other Systems: Reviewed and Negative Medications & Allergies Home Medications: Home Medication List Tamsulosin HCl 0.4 mg [Flomax 0.4 MG] 0.8 mg PO DAILY 04/24/14 [History Confirmed 01/05/19] Atorvastatin Calcium [Lipitor 20MG Tablet] 20 mg PO DAILY 01/04/19 [History Confirmed 01/04/19] Clopidogrel Bisulfate [Clopidogrel] 75 mg PO DAILY 01/04/19 [History Confirmed 01/04/19] Diphenoxylate HCl/Atropine [Diphenoxylate-Atrop 2.5-0.025] 1 each PO DAILY 01/04 [History Confirmed 01/04/19] Finasteride 5 mg PO DAILY 01/04/19 [History Confirmed 01/04/19] Glipizide/Metformin HCl [Glipizide-Metformin 5-500 mg] 1 each PO TID 01/04/19 [ History Confirmed 01/04/19] Lisinopril 20 mg [Zestril 20 MG] 20 mg PO DAILY 01/04/19 [History Confirmed 01/04/19] Sildenafil Citrate [Sildenafil] 20 mg PO UD 01/04/19 [History Confirmed 01/04/19 ] Tadalafil 5 mg PO DAILY 01/04/19 [History Confirmed 01/04/19] Allergies/Adverse Reactions: Allergies Allergy/AdvReac Type Severity Reaction Status Date / Time No Known Drug Allergies Allergy Verified 01/04/19 19:18 - Past Medical History Past Medical History: Yes Neurological History: No Pertinent History ENT History: No Pertinent History Cardiac History: High Cholesterol Respiratory History: No Pertinent History Endocrine Medical History: Diabetes Type II Musculoskelatal History: Arthritis GI Medical History: No Pertinent History History: No Pertinent History Pyscho-Social History: No Pertinent History Male Reproductive Disorders: Prostate Problems - Past Surgical History Past Surgical History: Yes Neuro Surgical History: No Pertinent History Cardiac History: Cardiac Catheterization, Cardiac Stent Respiratory Surgery: No Pertinent History GI Surgical History: Appendectomy Genitourinary Surgical Hx: No Pertinent History Musculskeletal Surgical Hx: Other Male Surgical History: No Pertinent History Other Surgical History: achilles tendon - Social History Smoking Status: Never smoker Exposure to second hand smoke: No Alcohol: None Drug Use: none - Physical Exam Vital Signs: Vital Signs - 24 hr Temp Pulse Resp BP Pulse Ox 01/05/19 07:39 98.9 F 76 18 104/53 97 01/05/19 07:36 97 01/05/19 04:00 26 H 01/05/19 03:38 99.1 F 92 H 26 H 115/53 96 01/05/19 00:34 98.3 F 73 24 109/58 92 L 01/04/19 23:42 95 01/04/19 23:14 78 18 100/53 94 L 01/04/19 22:42 90 20 120/55 96 01/04/19 21:51 99.5 F 87 22 119/58 96 01/04/19 21:30 77 18 119/58 97 01/04/19 21:00 72 22 104/51 98 01/04/19 20:00 99 H 20 103/48 95 01/04/19 19:18 100.5 F 106 H 15 85/52 95 Oxygen-Last 24 hours O2 Percentage 2 Liters = 28% O2 Percentage 2 Liters = 28% General Appearance: no apparent distress Neurologic Exam: alert, oriented x 3 Eye Exam: PERRL/EOMI, eyes nml inspection Respiratory Exam: normal breath sounds, lungs clear, No respiratory distress Cardiovascular Exam: regular rate/rhythm, normal heart sounds, normal peripheral pulses Gastrointestinal/Abdomen Exam: soft, normal bowel sounds, No tenderness, No mass Extremity Exam: normal inspection, normal range of motion, pelvis stable Skin Exam: normal color, warm, dry, No rash Results - Labs Lab/Micro Results: Lab Results-Last 24 Hours 01/04/19 01/04/19 01/04/19 Range/Units 20:07 20:07 20:07 WBC 25.9 H* (4.0-10.5) K/mm3 RBC 3.96 L (4.1-5.6) M/mm3 Hgb 13.2 (12.5-18.0) gm/dl Hct 37.9 L (42-50) % MCV 95.7 (78-100) fl MCH 33.3 H (26-32) pg MCHC 34.8 (32-36) g/dl RDW 13.9 (11.5-14.0) % Plt Count 192 (150-450) K/mm3 MPV 9.1 (6-9.5) fl Gran % 88.0 H (36.0-66.0) % Eos # (Auto) 0.02 (0-0.5) Absolute Lymphs (auto) 1.27 (1.0-4.6) Absolute Monos (auto) 1.79 H (0.0-1.3) Lymphocytes % 4.9 L (24.0-44.0) % Monocytes % 6.9 (0.0-12.0) % Eosinophils % 0.1 (0.00-5.0) % Basophils % 0.1 (0.0-0.4) % Absolute Granulocytes 22.80 H (1.4-6.9) Basophils # 0.02 (0-0.4) PT 13.6 H (8.83-12.87) SECONDS INR 1.20 (0.8-3.0) D-Dimer 1139 H* (215-500) ng/mL Sodium 134 L (137-145) mmol/L Potassium 4.6 (3.5-5.1) mmol/L Chloride 100 (98-107) mmol/L Carbon Dioxide 25 (22-30) mmol/L Anion Gap 13.3 (5-15) MEQ/L BUN 25 H (9-20) mg/dL Creatinine 1.13 (0.66-1.25) mg/dL Estimated GFR > 60.0 ML/MIN Glucose 211 H (74-106) mg/dL Lactic Acid (0.4-2.0) Calcium 9.1 (8.4-10.2) mg/dL Total Bilirubin 0.80 (0.2-1.3) mg/dL AST 22 (17-59) U/L ALT 16 (0-50) U/L Alkaline Phosphatase 63 (38-126) U/L Troponin I (0.000-0.034) ng/mL NT-Pro-B Natriuret Pep 1440 (0-1800) pg/mL Serum Total Protein 6.6 (6.3-8.2) g/dL Albumin 3.7 (3.5-5.0) g/dL Urine Color (YELLOW) Urine Appearance (CLEAR) Urine pH (5-6) Ur Specific [place] (1.005-1.025) Urine Protein (Negative) Urine Ketones (NEGATIVE) Urine Blood (0-5) Bronson/ul Urine Nitrite (NEGATIVE) Urine Bilirubin (NEGATIVE) Urine Urobilinogen (0-1) mg/dL Ur Leukocyte Esterase (NEGATIVE) Urine WBC (Auto) (0-5) /HPF Urine RBC (Auto) (0-2) /HPF U Hyaline Cast (Auto) (0-2) /LPF U Epithel Cells (Auto) (FEW) /HPF Urine Bacteria (Auto) (NEGATIVE) /HPF Urine Mucus (Auto) (NEGATIVE) /HPF Urine Culture Reflexed (NO) Urine Glucose (NEGATIVE) mg/dL Slides for Path Review YES 01/04/19 01/04/19 01/04/19 Range/Units 20:07 20:32 21:54 WBC (4.0-10.5) K/mm3 RBC (4.1-5.6) M/mm3 Hgb (12.5-18.0) gm/dl Hct (42-50) % MCV (78-100) fl MCH (26-32) pg MCHC (32-36) g/dl RDW (11.5-14.0) % Plt Count (150-450) K/mm3 MPV (6-9.5) fl Gran % (36.0-66.0) % Eos # (Auto) (0-0.5) Absolute Lymphs (auto) (1.0-4.6) Absolute Monos (auto) (0.0-1.3) Lymphocytes % (24.0-44.0) % Monocytes % (0.0-12.0) % Eosinophils % (0.00-5.0) % Basophils % (0.0-0.4) % Absolute Granulocytes (1.4-6.9) Basophils # (0-0.4) PT (8.83-12.87) SECONDS INR (0.8-3.0) D-Dimer (215-500) ng/mL Sodium (137-145) mmol/L Potassium (3.5-5.1) mmol/L Chloride (98-107) mmol/L Carbon Dioxide (22-30) mmol/L Anion Gap (5-15) MEQ/L BUN (9-20) mg/dL Creatinine (0.66-1.25) mg/dL Estimated GFR ML/MIN Glucose (74-106) mg/dL Lactic Acid 2.2 H (0.4-2.0) Calcium (8.4-10.2) mg/dL Total Bilirubin (0.2-1.3) mg/dL AST (17-59) U/L ALT (0-50) U/L Alkaline Phosphatase (38-126) U/L Troponin I 0.018 (0.000-0.034) ng/mL NT-Pro-B Natriuret Pep (0-1800) pg/mL Serum Total Protein (6.3-8.2) g/dL Albumin (3.5-5.0) g/dL Urine Color EMRE (YELLOW) Urine Appearance CLOUDY (CLEAR) Urine pH 5.0 (5-6) Ur Specific [place] 1.035 (1.005-1.025) Urine Protein 100 (Negative) Urine Ketones TRACE (NEGATIVE) Urine Blood MODERATE (0-5) Bronson/ul Urine Nitrite NEGATIVE (NEGATIVE) Urine Bilirubin NEGATIVE (NEGATIVE) Urine Urobilinogen NEGATIVE (0-1) mg/dL Ur Leukocyte Esterase MODERATE (NEGATIVE) Urine WBC (Auto) >100 (0-5) /HPF Urine RBC (Auto) 26-50 (0-2) /HPF U Hyaline Cast (Auto) 3-5 (0-2) /LPF U Epithel Cells (Auto) RARE (FEW) /HPF Urine Bacteria (Auto) RARE (NEGATIVE) /HPF Urine Mucus (Auto) MANY (NEGATIVE) /HPF Urine Culture Reflexed YES (NO) Urine Glucose NEGATIVE (NEGATIVE) mg/dL Slides for Path Review 01/04/19 01/04/19 01/05/19 Range/Units 22:32 23:10 02:38 WBC (4.0-10.5) K/mm3 RBC (4.1-5.6) M/mm3 Hgb (12.5-18.0) gm/dl Hct (42-50) % MCV (78-100) fl MCH (26-32) pg MCHC (32-36) g/dl RDW (11.5-14.0) % Plt Count (150-450) K/mm3 MPV (6-9.5) fl Gran % (36.0-66.0) % Eos # (Auto) (0-0.5) Absolute Lymphs (auto) (1.0-4.6) Absolute Monos (auto) (0.0-1.3) Lymphocytes % (24.0-44.0) % Monocytes % (0.0-12.0) % Eosinophils % (0.00-5.0) % Basophils % (0.0-0.4) % Absolute Granulocytes (1.4-6.9) Basophils # (0-0.4) PT (8.83-12.87) SECONDS INR (0.8-3.0) D-Dimer (215-500) ng/mL Sodium (137-145) mmol/L Potassium (3.5-5.1) mmol/L Chloride (98-107) mmol/L Carbon Dioxide (22-30) mmol/L Anion Gap (5-15) MEQ/L BUN (9-20) mg/dL Creatinine (0.66-1.25) mg/dL Estimated GFR ML/MIN Glucose (74-106) mg/dL Lactic Acid 1.0 (0.4-2.0) Calcium (8.4-10.2) mg/dL Total Bilirubin (0.2-1.3) mg/dL AST (17-59) U/L ALT (0-50) U/L Alkaline Phosphatase (38-126) U/L Troponin I 0.014 0.013 (0.000-0.034) ng/mL NT-Pro-B Natriuret Pep (0-1800) pg/mL Serum Total Protein (6.3-8.2) g/dL Albumin (3.5-5.0) g/dL Urine Color (YELLOW) Urine Appearance (CLEAR) Urine pH (5-6) Ur Specific [place] (1.005-1.025) Urine Protein (Negative) Urine Ketones (NEGATIVE) Urine Blood (0-5) Bronson/ul Urine Nitrite (NEGATIVE) Urine Bilirubin (NEGATIVE) Urine Urobilinogen (0-1) mg/dL Ur Leukocyte Esterase (NEGATIVE) Urine WBC (Auto) (0-5) /HPF Urine RBC (Auto) (0-2) /HPF U Hyaline Cast (Auto) (0-2) /LPF U Epithel Cells (Auto) (FEW) /HPF Urine Bacteria (Auto) (NEGATIVE) /HPF Urine Mucus (Auto) (NEGATIVE) /HPF Urine Culture Reflexed (NO) Urine Glucose (NEGATIVE) mg/dL Slides for Path Review 01/05/19 01/05/19 01/05/19 Range/Units 04:00 05:11 05:11 WBC 21.9 H (4.0-10.5) K/mm3 RBC 3.48 L (4.1-5.6) M/mm3 Hgb 11.5 L (12.5-18.0) gm/dl Hct 33.8 L (42-50) % MCV 97.1 (78-100) fl MCH 33.0 H (26-32) pg MCHC 34.0 (32-36) g/dl RDW 14.2 H (11.5-14.0) % Plt Count 170 (150-450) K/mm3 MPV 8.8 (6-9.5) fl Gran % 87.3 H (36.0-66.0) % Eos # (Auto) 0.02 (0-0.5) Absolute Lymphs (auto) 1.39 (1.0-4.6) Absolute Monos (auto) 1.37 H (0.0-1.3) Lymphocytes % 6.3 L (24.0-44.0) % Monocytes % 6.2 (0.0-12.0) % Eosinophils % 0.1 (0.00-5.0) % Basophils % 0.1 (0.0-0.4) % Absolute Granulocytes 19.13 H (1.4-6.9) Basophils # 0.02 (0-0.4) PT (8.83-12.87) SECONDS INR (0.8-3.0) D-Dimer (215-500) ng/mL Sodium 134 L (137-145) mmol/L Potassium 4.1 (3.5-5.1) mmol/L Chloride 104 (98-107) mmol/L Carbon Dioxide 26 (22-30) mmol/L Anion Gap 8.4 (5-15) MEQ/L BUN 23 H (9-20) mg/dL Creatinine 0.88 (0.66-1.25) mg/dL Estimated GFR > 60.0 ML/MIN Glucose 169 H (74-106) mg/dL Lactic Acid (0.4-2.0) Calcium 8.1 L (8.4-10.2) mg/dL Total Bilirubin 0.50 (0.2-1.3) mg/dL AST 17 (17-59) U/L ALT 13 (0-50) U/L Alkaline Phosphatase 52 (38-126) U/L Troponin I 0.014 (0.000-0.034) ng/mL NT-Pro-B Natriuret Pep (0-1800) pg/mL Serum Total Protein 5.7 L (6.3-8.2) g/dL Albumin 3.0 L (3.5-5.0) g/dL Urine Color (YELLOW) Urine Appearance (CLEAR) Urine pH (5-6) Ur Specific [place] (1.005-1.025) Urine Protein (Negative) Urine Ketones (NEGATIVE) Urine Blood (0-5) Bronson/ul Urine Nitrite (NEGATIVE) Urine Bilirubin (NEGATIVE) Urine Urobilinogen (0-1) mg/dL Ur Leukocyte Esterase (NEGATIVE) Urine WBC (Auto) (0-5) /HPF Urine RBC (Auto) (0-2) /HPF U Hyaline Cast (Auto) (0-2) /LPF U Epithel Cells (Auto) (FEW) /HPF Urine Bacteria (Auto) (NEGATIVE) /HPF Urine Mucus (Auto) (NEGATIVE) /HPF Urine Culture Reflexed (NO) Urine Glucose (NEGATIVE) mg/dL Slides for Path Review 01/05/19 Range/Units 07:48 WBC (4.0-10.5) K/mm3 RBC (4.1-5.6) M/mm3 Hgb (12.5-18.0) gm/dl Hct (42-50) % MCV (78-100) fl MCH (26-32) pg MCHC (32-36) g/dl RDW (11.5-14.0) % Plt Count (150-450) K/mm3 MPV (6-9.5) fl Gran % (36.0-66.0) % Eos # (Auto) (0-0.5) Absolute Lymphs (auto) (1.0-4.6) Absolute Monos (auto) (0.0-1.3) Lymphocytes % (24.0-44.0) % Monocytes % (0.0-12.0) % Eosinophils % (0.00-5.0) % Basophils % (0.0-0.4) % Absolute Granulocytes (1.4-6.9) Basophils # (0-0.4) PT (8.83-12.87) SECONDS INR (0.8-3.0) D-Dimer (215-500) ng/mL Sodium (137-145) mmol/L Potassium (3.5-5.1) mmol/L Chloride (98-107) mmol/L Carbon Dioxide (22-30) mmol/L Anion Gap (5-15) MEQ/L BUN (9-20) mg/dL Creatinine (0.66-1.25) mg/dL Estimated GFR ML/MIN Glucose (74-106) mg/dL Lactic Acid (0.4-2.0) Calcium (8.4-10.2) mg/dL Total Bilirubin (0.2-1.3) mg/dL AST (17-59) U/L ALT (0-50) U/L Alkaline Phosphatase (38-126) U/L Troponin I 0.013 (0.000-0.034) ng/mL NT-Pro-B Natriuret Pep (0-1800) pg/mL Serum Total Protein (6.3-8.2) g/dL Albumin (3.5-5.0) g/dL Urine Color (YELLOW) Urine Appearance (CLEAR) Urine pH (5-6) Ur Specific [place] (1.005-1.025) Urine Protein (Negative) Urine Ketones (NEGATIVE) Urine Blood (0-5) Bronson/ul Urine Nitrite (NEGATIVE) Urine Bilirubin (NEGATIVE) Urine Urobilinogen (0-1) mg/dL Ur Leukocyte Esterase (NEGATIVE) Urine WBC (Auto) (0-5) /HPF Urine RBC (Auto) (0-2) /HPF U Hyaline Cast (Auto) (0-2) /LPF U Epithel Cells (Auto) (FEW) /HPF Urine Bacteria (Auto) (NEGATIVE) /HPF Urine Mucus (Auto) (NEGATIVE) /HPF Urine Culture Reflexed (NO) Urine Glucose (NEGATIVE) mg/dL Slides for Path Review - Radiology Impressions Radiology Exams & Impressions: Radiology Procedures Category Date Time Status CHEST 1 VIEW (PORTABLE) Stat Exams 01/04/19 19:45 Completed CHEST WITH CONTRAST [CT] Stat Exams 01/04/19 20:44 Completed - Other Procedures and Tests Respiratory Therapy 01/05/19 03:38 Oxygen Nasal Cannula 2 lpm Assessment/Plan (1) Sepsis Current Visit: Yes Status: Acute Assessment & Plan: on meropenem for presumed gram negative sepsis, bp is stable and wbc has slightly improved. awaiting culture results, source is pyelonephritis (2) Acute pyelonephritis Current Visit: No Status: Acute Assessment & Plan: continue meropenem Code(s): N10 - ACUTE PYELONEPHRITIS
[2019-01-05] MEDS: ENOXAPARIN SODIUM SQ SCH (10:50)
[2019-01-05] MEDS: PLAVIX 75 MG Tablet PO SCH (11:33)
[2019-01-05] MEDS: Proscar 5 MG PO SCH (11:33)
[2019-01-05] MEDS: Flomax 0.4 MG PO SCH (11:33)
[2019-01-05] MEDS: NovoLOG Insulin SQ PRN ×3 (12:18→22:13)
[2019-01-06] MEDS: Merrem 1 GM 1 G in Sodium Chloride 100ML MINI-BAG PLUS 100 ML IV SCH ×3 (05:37→21:35)
[2019-01-06 05:47] LABS: BASOPHIL % 0.3 % (0.0-0.4); Basophil (Absolute #) 0.04 (0-0.4); Granulocytes % 79.7 % (36.0-66.0); Hematocrit 33.4 % (42-50); Hemoglobin 11.1 gm/dl (12.5-18.0); Lymphocyte (Absolute #) 1.87 (1.0-4.6); Lymphocytes % 12.3 % (24.0-44.0); Mean Cell Volume 98.2 fl (78-100); Mean Corpuscular Hemoglobin 32.6 pg (26-32); Mean Corpuscular Hgb Concent. 33.2 g/dl (32-36); Mean Platelet Volume 8.8 fl (6-9.5); Monocyte (Absolute #) 0.86 (0.0-1.3); Monocytes % 5.7 % (0.0-12.0); Platelet Count 155 K/mm3 (150-450); Red Cell Distribution Width 14.3 % (11.5-14.0); White Blood Count 15.2 K/mm3 (4.0-10.5)
[2019-01-06 06:12] LABS: ANION GAP 7.3 MEQ/L (5-15); BLOOD UREA NITROGEN 16 mg/dL (9-20); CHLORIDE 107 mmol/L (98-107); Calcium 7.8 mg/dL (8.4-10.2); Carbon Dioxide 26 mmol/L (22-30); Creatinine 1 0.69 mg/dL (0.66-1.25); Glucose 124 mg/dL (74-106); SODIUM 136 mmol/L (137-145)
--- NOTE | 2019-01-06 07:57 | PCM.NOTE ---
Date and Time: 01/06/19 0756 Subjective Assessment: patient is feeling much better today, weakness is improved. denies pain, tolerating po intake Objective Exam General Appearance: no apparent distress, alert Neurologic Exam: alert, oriented x 3, cooperative, normal mood/affect, nml cerebellar function, sensation nml, No motor deficits Respiratory Exam: normal breath sounds, lungs clear, No respiratory distress Cardiovascular Exam: regular rate/rhythm, normal heart sounds Gastrointestinal/Abdomen Exam: soft, No tenderness, No mass Extremity Exam: normal inspection, normal range of motion OBJECTIVE DATA Vital Signs: Vital Signs - 24 hr Temp Pulse Resp BP Pulse Ox 01/06/19 07:21 98.2 F 76 20 151/71 92 L 01/06/19 04:00 16 01/06/19 03:51 98.7 F 75 16 144/68 96 01/06/19 00:00 20 01/05/19 23:31 98.6 F 72 21 137/99 95 01/05/19 20:06 96 01/05/19 20:00 18 01/05/19 19:14 98.7 F 68 18 120/57 95 01/05/19 16:00 99.0 F 68 18 124/71 98 01/05/19 12:00 18 01/05/19 11:31 98.1 F 66 18 110/55 98 01/05/19 08:00 18 Oxygen-Last 24 hours O2 Percentage 2 Liters = 28% O2 Percentage 2 Liters = 28% Pain Assessment - Last Documented Pain Intensity 0 Pain Scale Used 0-10 Pain Scale Intake and Output: Intake & Output 01/03/19 01/04/19 01/05/19 01/06/19 11:59 11:59 11:59 11:59 Intake Total 626 3410 Output Total 1500 Balance 626 1910 Weight 93.8 kg Lab Results: Accuchecks Date 01/05/19 Date 01/05/19 Date 01/05/19 Time 21:30 Time 16:30 Time 11:30 Accucheck Value: 168 Accucheck Value: 157 Accucheck Value: 188 Lab Results-Last 24 Hours 01/05/19 01/05/19 01/06/19 Range/Units 05:00 07:48 05:32 WBC 15.2 H (4.0-10.5) K/mm3 RBC 3.40 L (4.1-5.6) M/mm3 Hgb 11.1 L (12.5-18.0) gm/dl Hct 33.4 L (42-50) % MCV 98.2 (78-100) fl MCH 32.6 H (26-32) pg MCHC 33.2 (32-36) g/dl RDW 14.3 H (11.5-14.0) % Plt Count 155 (150-450) K/mm3 MPV 8.8 (6-9.5) fl Gran % 79.7 H (36.0-66.0) % Eos # (Auto) 0.30 (0-0.5) Absolute Lymphs (auto) 1.87 (1.0-4.6) Absolute Monos (auto) 0.86 (0.0-1.3) Lymphocytes % 12.3 L (24.0-44.0) % Monocytes % 5.7 (0.0-12.0) % Eosinophils % 2.0 (0.00-5.0) % Basophils % 0.3 (0.0-0.4) % Absolute Granulocytes 12.10 H (1.4-6.9) Basophils # 0.04 (0-0.4) Sodium (137-145) mmol/L Potassium (3.5-5.1) mmol/L Chloride (98-107) mmol/L Carbon Dioxide (22-30) mmol/L Anion Gap (5-15) MEQ/L BUN (9-20) mg/dL Creatinine (0.66-1.25) mg/dL Estimated GFR ML/MIN Glucose (74-106) mg/dL Hemoglobin A1c 7.11 H (4.5-6.0) % Calcium (8.4-10.2) mg/dL Troponin I 0.013 (0.000-0.034) ng/mL 01/06/19 Range/Units 05:32 WBC (4.0-10.5) K/mm3 RBC (4.1-5.6) M/mm3 Hgb (12.5-18.0) gm/dl Hct (42-50) % MCV (78-100) fl MCH (26-32) pg MCHC (32-36) g/dl RDW (11.5-14.0) % Plt Count (150-450) K/mm3 MPV (6-9.5) fl Gran % (36.0-66.0) % Eos # (Auto) (0-0.5) Absolute Lymphs (auto) (1.0-4.6) Absolute Monos (auto) (0.0-1.3) Lymphocytes % (24.0-44.0) % Monocytes % (0.0-12.0) % Eosinophils % (0.00-5.0) % Basophils % (0.0-0.4) % Absolute Granulocytes (1.4-6.9) Basophils # (0-0.4) Sodium 136 L (137-145) mmol/L Potassium 4.0 (3.5-5.1) mmol/L Chloride 107 (98-107) mmol/L Carbon Dioxide 26 (22-30) mmol/L Anion Gap 7.3 (5-15) MEQ/L BUN 16 (9-20) mg/dL Creatinine 0.69 (0.66-1.25) mg/dL Estimated GFR > 60.0 ML/MIN Glucose 124 H (74-106) mg/dL Hemoglobin A1c (4.5-6.0) % Calcium 7.8 L (8.4-10.2) mg/dL Troponin I (0.000-0.034) ng/mL Radiology Exams: Radiology Procedures Category Date Time Status CHEST 1 VIEW (PORTABLE) Stat Exams 01/04/19 19:45 Completed CHEST WITH CONTRAST [CT] Stat Exams 01/04/19 20:44 Completed Multi-Disciplinary Progress Notes: Multi-Disciplinary Progress Notes 01/05/19 08:41 Case Management Note by Carmelina Bateman DISCHARGE PLAN REVIEWED. PT NORMALLY LIVES AT HOME WITH , SOPHIE, AND IS INDEPENDENT OF ALL ADL'S. PT AT THIS TIME HAS NO SERVICES AND DOES HAVE A DIABETIC TESTING DEVICE. PLAN TO RETURN HOME TO PRE EPISODIC LEVEL OF FUNCTION WHEN CLINICALLY ABLE. PT AT THIS TIME DOES MEET INPATIENT CRITERIA. WILL CONTINUE TO MONITOR FOR ALL D/C NEEDS. Initialized on 01/05/19 08:41 - END OF NOTE Assessment/Plan (1) Sepsis Current Visit: Yes Status: Acute Assessment & Plan: bp stable, clinically improved, wbc improving. (2) Acute pyelonephritis Current Visit: No Status: Acute Assessment & Plan: continue meropenem, culture results pending. Code(s): N10 - ACUTE PYELONEPHRITIS
[2019-01-06] MEDS: Flomax 0.4 MG PO SCH (09:53)
[2019-01-06] MEDS: Sodium Chloride 0.9% 1000 ML 1,000 ML IV SCH (09:53)
[2019-01-06] MEDS: ENOXAPARIN SODIUM SQ SCH (09:54)
[2019-01-06] MEDS: PLAVIX 75 MG Tablet PO SCH (09:54)
[2019-01-06] MEDS: Proscar 5 MG PO SCH (09:54)
[2019-01-06] MEDS ORDERED: Lomotil PO PRN (10:00)
[2019-01-06] MEDS: NovoLOG Insulin SQ PRN ×3 (11:53→21:36)
[2019-01-07] MEDS: Merrem 1 GM 1 G in Sodium Chloride 100ML MINI-BAG PLUS 100 ML IV SCH (05:47)
[2019-01-07 05:59] LABS: BASOPHIL % 0.4 % (0.0-0.4); Basophil (Absolute #) 0.03 (0-0.4); Eosinophil % 4.2 % (0.00-5.0); Eosinophil (Absolute #) 0.35 (0-0.5); Granulocyte Absolute (ANC) 5.88 (1.4-6.9); Granulocytes % 70.2 % (36.0-66.0); Hematocrit 34.2 % (42-50); Hemoglobin 11.4 gm/dl (12.5-18.0); Lymphocytes % 17.9 % (24.0-44.0); Mean Cell Volume 98.3 fl (78-100); Mean Corpuscular Hgb Concent. 33.3 g/dl (32-36); Mean Platelet Volume 9.1 fl (6-9.5); Monocyte (Absolute #) 0.61 (0.0-1.3); Monocytes % 7.3 % (0.0-12.0); Platelet Count 178 K/mm3 (150-450); Red Blood Count 3.48 M/mm3 (4.1-5.6); Red Cell Distribution Width 14.2 % (11.5-14.0); White Blood Count 8.4 K/mm3 (4.0-10.5)
[2019-01-07 06:11] LABS: Mean Corpuscular Hemoglobin 32.7 pg (26-32)
[2019-01-07 06:48] LABS: ANION GAP 7.3 MEQ/L (5-15); BLOOD UREA NITROGEN 14 mg/dL (9-20); CHLORIDE 108 mmol/L (98-107); Calcium 8.1 mg/dL (8.4-10.2); Carbon Dioxide 27 mmol/L (22-30); Creatinine 1 0.65 mg/dL (0.66-1.25); Glucose 147 mg/dL (74-106); SODIUM 138 mmol/L (137-145)
[2019-01-07 07:21] VITALS: BP 163/77; PULSE 63; O2SAT 93
--- NOTE | 2019-01-07 08:30 | PCM.DS ---
Discharge Summary Date of Admission: 01/05/19 00:05 Admitting Physician: ROWENA VIEYRA Primary Care Provider: ROWENA VIEYRA Allergies Allergies No Known Drug Allergies Allergy (Verified 01/04/19 19:18) Hospital Summary - Hospital Course Hospital Course: patient arrived with weakness and hypotension, found to have uti and dx with sepsis, has been fever free for nearly 72 hours, tolerating po, blood cultures are negative, urine culture e coli. he is voiding normally now and feels much better, no complaints. bp is actually mildly hypertensive now. - Vitals & Intake/Output Vital Signs: Vital Signs Temperature 98.4 F 01/07/19 07:20 Pulse Rate 63 01/07/19 07:20 Respiratory Rate 18 01/07/19 07:52 Blood Pressure 163/77 01/07/19 07:20 O2 Sat by Pulse Oximetry 93 L 01/07/19 07:20 Oxygen-Last Documented O2 Percentage 2 Liters = 28% Intake & Output: Intake & Output 01/04/19 01/05/19 01/06/19 01/07/19 11:59 11:59 11:59 11:59 Intake Total 626 3410 2391 Output Total 1500 700 Balance 626 0660 1691 Weight 93.8 kg 96.4 kg - Lab Result Diagrams: 01/07/19 05:27 01/07/19 05:27 Lab Results-Last 24 Hrs: Accuchecks Date 01/07/19 Date 01/06/19 Date 01/06/19 Date 01/06/19 Time 07:52 Time 22:00 Time 16:30 Time 11:30 Accucheck Value: 147 Accucheck Value: 229 Accucheck Value: 152 Accucheck Value: 224 Lab Results-Last 24 Hours 01/07/19 01/07/19 Range/Units 05:27 05:27 WBC 8.4 (4.0-10.5) K/mm3 RBC 3.48 L (4.1-5.6) M/mm3 Hgb 11.4 L (12.5-18.0) gm/dl Hct 34.2 L (42-50) % MCV 98.3 (78-100) fl MCH 32.7 H (26-32) pg MCHC 33.3 (32-36) g/dl RDW 14.2 H (11.5-14.0) % Plt Count 178 (150-450) K/mm3 MPV 9.1 (6-9.5) fl Gran % 70.2 H (36.0-66.0) % Eos # (Auto) 0.35 (0-0.5) Absolute Lymphs (auto) 1.50 (1.0-4.6) Absolute Monos (auto) 0.61 (0.0-1.3) Lymphocytes % 17.9 L (24.0-44.0) % Monocytes % 7.3 (0.0-12.0) % Eosinophils % 4.2 (0.00-5.0) % Basophils % 0.4 (0.0-0.4) % Absolute Granulocytes 5.88 (1.4-6.9) Basophils # 0.03 (0-0.4) Sodium 138 (137-145) mmol/L Potassium 4.0 (3.5-5.1) mmol/L Chloride 108 H (98-107) mmol/L Carbon Dioxide 27 (22-30) mmol/L Anion Gap 7.3 (5-15) MEQ/L BUN 14 (9-20) mg/dL Creatinine 0.65 L (0.66-1.25) mg/dL Estimated GFR > 60.0 ML/MIN Glucose 147 H (74-106) mg/dL Calcium 8.1 L (8.4-10.2) mg/dL Micro Results-Entire Visit: Microbiology 01/04/19 21:54 Urine Culture - Final Clean Catch Midstream Escherichia Coli 01/04/19 20:07 Blood Culture - Preliminary Blood NO GROWTH TO DATE 01/04/19 20:07 Blood Culture - Preliminary Blood NO GROWTH TO DATE Accuchecks Date 01/07/19 Date 01/06/19 Date 01/06/19 Date 01/06/19 Time 07:52 Time 22:00 Time 16:30 Time 11:30 Accucheck Value: 147 Accucheck Value: 229 Accucheck Value: 152 Accucheck Value: 224 - Procedures and Test Procedures and Tests throughout Hospitalization: Therapy Orders & Screens 01/05/19 03:38 Oxygen Nasal Cannula 2 lpm Comment: Diagnosis: sepsis, hypotension Discharge Exam General Appearance: no apparent distress Neurologic Exam: alert, oriented x 3, cooperative, normal mood/affect, nml cerebellar function, sensation nml, No motor deficits Respiratory Exam: normal breath sounds, lungs clear, No respiratory distress Cardiovascular Exam: regular rate/rhythm, normal heart sounds Gastrointestinal/Abdomen Exam: soft, No tenderness, No mass Back Exam: normal inspection, normal range of motion, No CVA tenderness, No vertebral tenderness Extremity Exam: normal inspection, normal range of motion Skin Exam: normal color, warm, dry Final Diagnosis/Problem List - Final Discharge Diagnosis/Problem (1) Sepsis Current Visit: Yes Status: Acute (2) Acute pyelonephritis Current Visit: No Status: Acute Code(s): N10 - ACUTE PYELONEPHRITIS - Discharge Disposition: Home, Self-Care Condition: Stable Prescriptions: New Ciprofloxacin [Cipro 500 MG] 500 mg PO BID #14 tablet Continue Tamsulosin HCl 0.4 mg [Flomax 0.4 MG] 0.8 mg PO DAILY Finasteride 5 mg PO DAILY Sildenafil Citrate 20 mg PO UD Glipizide/Metformin HCl [Glipizide-Metformin 5-500 mg] 1 each PO TID Atorvastatin Calcium [Lipitor 20MG Tablet] 20 mg PO DAILY Diphenoxylate HCl/Atropine [Diphenoxylate-Atrop 2.5-0.025] 1 each PO DAILY Clopidogrel Bisulfate [Clopidogrel] 75 mg PO DAILY Lisinopril 20 mg [Zestril 20 MG] 20 mg PO DAILY Tadalafil 5 mg PO DAILY Follow up with: ROWENA VIEYRA MD [Primary Care Provider] - 1 Week
[2019-01-07] MEDS: ENOXAPARIN SODIUM SQ SCH (09:24)
[2019-01-07] MEDS: PLAVIX 75 MG Tablet PO SCH (09:24)
[2019-01-07] MEDS: Flomax 0.4 MG PO SCH (09:24)
[2019-01-07] MEDS: Proscar 5 MG PO SCH (09:25)
== END 2019-01-07 09:44 | disposition home or self-care (01) | DRG 872 ==
LOC: ED 19:02 → MED SURG 01-05 00:05
PROVIDERS: ADMIT Family Medicine; ATTEND Family Medicine
DX: A41.9 Sepsis, unspecified organism (principal); N10 Acute pyelonephritis; B96.20 Unspecified Escherichia coli [E. coli] as the cause of diseases classified elsewhere; I95.9 Hypotension, unspecified; E11.9 Type 2 diabetes mellitus without complications; R53.1 Weakness; E78.00 Pure hypercholesterolemia, unspecified; R11.2 Nausea with vomiting, unspecified; Z79.899 Other long term (current) drug therapy
CPT/HCPCS: 36415; 71045; 71260; 80048; 80053; 81001; 82962; 83036; 83605; 83880; 84484; 85025; 85379; 85610; 87040; 87077; 87086; 87186; 93005; 93041; 94760; 96360; 96361; 96365; 96367; 96374; 99285; J1650; J1956; J2405; A9270-GY

== ENCOUNTER 2019-06-03 20:39 | Observation (INO) | payer MEDICARE ==
[2019-06-03] MEDS: Sodium Chloride 0.9% 1000 ML 1,000 ML IV SCH (21:29)
[2019-06-03 21:31] LABS: Absolute Neutrophil Ct (ANC) 15.24 (1.4-6.9); BASOPHIL % 0.2 % (0.0-0.4); Basophil (Absolute #) 0.03 (0-0.4); Eosinophil % 0.1 % (0.00-5.0); Eosinophil (Absolute #) 0.01 (0-0.5); Hematocrit 38.5 % (42-50); Lymphocytes % 9.3 % (24.0-44.0); Mean Cell Volume 96.5 fl (78-100); Mean Corpuscular Hemoglobin 32.6 pg (26-32); Mean Corpuscular Hgb Concent. 33.8 g/dl (32-36); Monocyte (Absolute #) 1.36 (0.0-1.3); Monocytes % 7.4 % (0.0-12.0); Platelet Count 167 K/mm3 (150-450); Red Blood Count 3.99 M/mm3 (4.1-5.6); Red Cell Distribution Width 14.5 % (11.5-14.0); White Blood Count 18.3 K/mm3 (4.0-10.5)
[2019-06-03 21:47] LABS: ALBUMIN 3.7 g/dL (3.5-5.0); ALKALINE PHOSPHATASE 63 U/L (38-126); ANION GAP 12.2 MEQ/L (5-15); BLOOD UREA NITROGEN 18 mg/dL (9-20); CHLORIDE 101 mmol/L (98-107); Carbon Dioxide 26 mmol/L (22-30); Creatinine 1 0.78 mg/dL (0.66-1.25); Glucose 209 mg/dL (74-106); Potassium 4.1 mmol/L (3.5-5.1); SGOT/AST 22 U/L (17-59); SGPT/ALT 13 U/L (0-50); SODIUM 136 mmol/L (137-145); Total Protein 6.8 g/dL (6.3-8.2)
[2019-06-03 21:54] LABS: Appearance CLOUDY (CLEAR); Bacteria RARE /HPF (NEGATIVE); Bilirubin NEGATIVE (NEGATIVE); Blood MODERATE Ery/ul (0-5); Epithelial Cells RARE /HPF (FEW); Glucose NEGATIVE (NEGATIVE); Ketones SMALL (NEGATIVE); Leukocyte Esterase LARGE (NEGATIVE); Mucus SLIGHT /HPF (NEGATIVE); Nitrite POSITIVE (NEGATIVE); Protein,Urine Dip NEGATIVE (Negative); Urobilinogen NEGATIVE mg/dL (0-1); WBC 26-50 /HPF (0-5)
[2019-06-03 21:56] LABS: CK-Creatinine Phosphokinase 24 U/L (55-170); NT PRO BNP 611 pg/mL (0-1800)
[2019-06-03 22:13] LABS: INFLUENZA A NEGATIVE (NEGATIVE); INFLUENZA B NEGATIVE (NEGATIVE); RESPIRATORY SYNCTIAL VIRUS NEGATIVE (Negative)
[2019-06-03] MEDS ORDERED: Levofloxacin 500MG/100ML D5W 500 MG/100 ML BAG IV STA (22:13)
[2019-06-03] MEDS ORDERED: ROCEPHIN 1 Gm-D5w 50 ml Bag** 1 G/50 ML IVPB IV STA (22:13)
[2019-06-03] MEDS ORDERED: ROCEPHIN 1 Gm-D5w 50 ml Bag** 1 G/50 ML IVPB IV ONE (22:15)
--- NOTE | 2019-06-03 22:38 | ERPHSYRPT ---
- History of Present Illness Time Seen by Provider: 06/03/19 20:55 Source: patient, other Exam Limitations: no limitations Patient Subjective Stated Complaint: pt states, "I am just weak and tired and I' ve had sepsis 2 times before and this is just how I felt". Triage Nursing Assessment: Pt c/o weakness and tiredness, couldn't get off the couch today per his son. Lungs clear, heart tones reg, abd lg and soft with active bs x4 quad, nontender. Pt denies any pain, denies c/p or sob. Physician History: patient is an 83-year-old male who presents with a complaint of weakness so severe that developed over the course of today and he was unable to get off the couch. He denies any chest pain shortness of breath he does have a history of sepsis on 2 occasions the family believed to be from urinary tract. He is afebrile right now in the ER. Timing/Duration: today Activites at Onset: none Severity of Pain-Max: none Severity of Pain-Current: none Modifying Factors: Improves With: nothing Associated Symptoms: denies symptoms Prior abdominal problems: similar symptoms Sexual intercourse history: non-contributory Allergies/Adverse Reactions: No Known Drug Allergies Allergy (Verified 01/04/19 19:18) Home Medications: Tamsulosin HCl 0.4 mg [Flomax 0.4 MG] 0.4 mg PO BID 04/24/14 [History] Atorvastatin Calcium [Lipitor 20MG Tablet] 20 mg PO DAILY 01/04/19 [History] Clopidogrel Bisulfate [Clopidogrel] 75 mg PO DAILY 01/04/19 [History] Glipizide/Metformin HCl [Glipizide-Metformin 5-500 mg] 1 each PO TID 01/04/19 [ History] Lisinopril 20 mg [Zestril 20 MG] 20 mg PO DAILY 01/04/19 [History] Tadalafil 5 mg PO DAILY 01/04/19 [History] Aspirin EC 81 mg [Ecotrin 81 mg] 81 mg PO DAILY 06/03/19 [History] Hx Tetanus, Diphtheria Vaccination/Date Given: No Hx Influenza Vaccination/Date Given: Yes Hx Pneumococcal Vaccination/Date Given: Yes Immunizations Up to Date: No - Past Medical History Pertinent Past Medical History: Yes Neurological History: No Pertinent History ENT History: No Pertinent History Cardiac History: Coronary Artery Disease, High Cholesterol Respiratory History: No Pertinent History Endocrine Medical History: Diabetes Type II Musculoskeletal History: Arthritis GI Medical History: No Pertinent History History: No Pertinent History Psycho-Social History: No Pertinent History Male Reproductive Disorders: Prostate Problems - Past Surgical History Past Surgical History: Yes Neuro Surgical History: No Pertinent History Cardiac: Cardiac Catheterization, Cardiac Stent Respiratory: No Pertinent History Gastrointestinal: Appendectomy Genitourinary: No Pertinent History Musculoskeletal: Other Male Surgical History: No Pertinent History Other Surgical History: achilles tendon - Social History Smoking Status: Never smoker Exposure to second hand smoke: No Drug Use: none Patient Lives Alone: No - Review of Systems Constitutional: Lethargy, Malaise, Weakness, No Fever, No Chills Eyes: No Symptoms Ears, Nose, & Throat: No Symptoms Respiratory: No Cough, No Dyspnea Cardiac: No Chest Pain, No Edema, No Syncope Abdominal/Gastrointestinal: No Abdominal Pain, No Nausea, No Vomiting, No Diarrhea Genitourinary Symptoms: No Dysuria Musculoskeletal: No Back Pain, No Neck Pain Skin: No Rash Neurological: No Dizziness, No Focal Weakness, No Sensory Changes Psychological: No Symptoms Endocrine: No Symptoms All Other Systems: Reviewed and Negative - Nursing Vital Signs Nursing Vital Signs: Initial Vital Signs Temperature 98.7 F 06/03/19 20:49 Pulse Rate 89 06/03/19 20:49 Respiratory Rate 19 06/03/19 20:49 Blood Pressure 124/85 06/03/19 20:49 O2 Sat by Pulse Oximetry 95 06/03/19 20:49 Pain Scale Pain Intensity 0 - Physical Exam General Appearance: no apparent distress, alert Eye Exam: PERRL/EOMI Ears, Nose, Throat Exam: pharynx normal, moist mucous membranes Neck Exam: normal inspection, supple Respiratory Exam: normal breath sounds, lungs clear Cardiovascular Exam: regular rate/rhythm, No edema Gastrointestinal/Abdomen Exam: soft, No tenderness Back Exam: normal inspection, No CVA tenderness Extremity Exam: normal inspection, normal range of motion, No pedal edema Neurologic Exam: alert, oriented x 3, cooperative, sensation nml, No motor deficits Skin Exam: normal color, warm, dry, No rash Lymphatic Exam: No adenopathy SpO2 Interpretation: normal SpO2: 97 O2 Delivery: Room Air - Course Nursing assessment & vital signs reviewed: Yes EKG Interpreted by Me: RATE, Sinus Rhythm, 1st degree AV Block, Non-specific ST Changes - Radiology Exams Chest X-ray Interpretation: Negative Ordered Tests: Active Orders 24 hr Category Date Time Status Blood Bank Credit Clerk STAT Care 06/03/19 20:53 Active EKG-ER Only STAT Care 06/03/19 20:52 Active IV Insertion STAT Care 06/03/19 20:52 Active CHEST 1 VIEW (PORTABLE) Stat Exams 06/03/19 20:53 Taken BLOOD CULTURE Stat Lab 06/03/19 21:15 Received CBC W DIFF Stat Lab 06/03/19 21:25 Completed CK-Creatinine Phosphokinase Stat Lab 06/03/19 21:25 Completed CMP Stat Lab 06/03/19 21:25 Completed CULTURE,URINE Stat Lab 06/03/19 21:44 Received D-DIMER QUANTITATIVE Stat Lab 06/03/19 21:25 Completed Lactic Acid Stat Lab 06/03/19 21:25 Completed NT PRO BNP Stat Lab 06/03/19 21:25 Completed TROPONIN Q3H Lab 06/03/19 21:00 Completed TROPONIN Q3H Lab 06/04/19 00:00 Ordered TROPONIN Q3H Lab 06/04/19 03:00 Ordered TROPONIN Q3H Lab 06/04/19 06:00 Ordered TROPONIN Q3H Lab 06/04/19 09:00 Ordered UA W/RFX UR CULTURE Stat Lab 06/03/19 21:44 Completed Medication Summary Generic Name Dose Route Start Last Admin Trade Name Freq PRN Reason Stop Dose Admin Sodium Chloride 1,000 mls @ 100 mls/hr 06/03/19 21:00 06/03/19 21:29 Sodium Chloride 0.9% 1000 Ml IV 07/03/19 20:59 100 mls/hr .Q10H MANAV Administration Levofloxacin/Dextrose 500 mg in 100 mls @ 100 mls/hr 06/03/19 22:13 Levofloxacin 500mg/100ml D5w IV 06/03/19 23:12 STAT STA Ceftriaxone Sodium/Dextrose 1 g in 50 mls @ 100 mls/hr 06/03/19 22:13 22:22 Rocephin 1 Gm-D5w 50 Ml Bag IV 06/03/19 22:42 100 mls/hr STAT STA 100 mls/hr Administration Discontinued Medications Generic Name Dose Route Start Last Admin Trade Name Freq PRN Reason Stop Dose Admin Ceftriaxone Sodium/Dextrose Confirm 06/03/19 22:15 Rocephin 1 Gm-D5w 50 Ml Bag Administered 06/03/19 22:16 Dose 1 g in 50 mls @ ud IV .STK-MED ONE Lab/Rad Data: Laboratory Result Diagrams 06/03/19 21:25 06/03/19 21:25 Laboratory Results 06/03/19 06/03/19 06/03/19 Range/Units 21:44 21:25 21:25 WBC (4.0-10.5) K/mm3 RBC (4.1-5.6) M/mm3 Hgb (12.5-18.0) gm/dl Hct (42-50) % MCV (78-100) fl MCH (26-32) pg MCHC (32-36) g/dl RDW (11.5-14.0) % Plt Count (150-450) K/mm3 MPV (6-9.5) fl Gran % (36.0-66.0) % Eos # (Auto) (0-0.5) Absolute Lymphs (auto) (1.0-4.6) Absolute Monos (auto) (0.0-1.3) Lymphocytes % (24.0-44.0) % Monocytes % (0.0-12.0) % Eosinophils % (0.00-5.0) % Basophils % (0.0-0.4) % Absolute Granulocytes (1.4-6.9) Basophils # (0-0.4) D-Dimer 487 (215-500) ng/mL Sodium (137-145) mmol/L Potassium (3.5-5.1) mmol/L Chloride (98-107) mmol/L Carbon Dioxide (22-30) mmol/L Anion Gap (5-15) MEQ/L BUN (9-20) mg/dL Creatinine (0.66-1.25) mg/dL Estimated GFR ML/MIN Glucose (74-106) mg/dL Lactic Acid (0.4-2.0) Calcium (8.4-10.2) mg/dL Total Bilirubin (0.2-1.3) mg/dL AST (17-59) U/L ALT (0-50) U/L Alkaline Phosphatase (38-126) U/L Creatine Kinase 24 L (55-170) U/L Troponin I (0.000-0.034) ng/mL NT-Pro-B Natriuret Pep 611 (0-1800) pg/mL Serum Total Protein (6.3-8.2) g/dL Albumin (3.5-5.0) g/dL Urine Color YELLOW (YELLOW) Urine Appearance CLOUDY (CLEAR) Urine pH 6.0 (5-6) Ur Specific [place] 1.020 (1.005-1.025) Urine Protein NEGATIVE (Negative) Urine Ketones SMALL (NEGATIVE) Urine Blood MODERATE (0-5) Bronson/ul Urine Nitrite POSITIVE (NEGATIVE) Urine Bilirubin NEGATIVE (NEGATIVE) Urine Urobilinogen NEGATIVE (0-1) mg/dL Ur Leukocyte Esterase LARGE (NEGATIVE) Urine WBC (Auto) 26-50 (0-5) /HPF Urine RBC (Auto) 16-25 (0-2) /HPF U Epithel Cells (Auto) RARE (FEW) /HPF Urine Bacteria (Auto) RARE (NEGATIVE) /HPF Urine Mucus (Auto) SLIGHT (NEGATIVE) /HPF Urine Culture Reflexed ORDERED SEPARATELY (NO) Urine Glucose NEGATIVE (NEGATIVE) mg/dL Influenza Type A Ag (NEGATIVE) Influenza Type B Ag (NEGATIVE) RSV (PCR) (Negative) 06/03/19 06/03/19 06/03/19 Range/Units 21:25 21:25 21:25 WBC (4.0-10.5) K/mm3 RBC (4.1-5.6) M/mm3 Hgb (12.5-18.0) gm/dl Hct (42-50) % MCV (78-100) fl MCH (26-32) pg MCHC (32-36) g/dl RDW (11.5-14.0) % Plt Count (150-450) K/mm3 MPV (6-9.5) fl Gran % (36.0-66.0) % Eos # (Auto) (0-0.5) Absolute Lymphs (auto) (1.0-4.6) Absolute Monos (auto) (0.0-1.3) Lymphocytes % (24.0-44.0) % Monocytes % (0.0-12.0) % Eosinophils % (0.00-5.0) % Basophils % (0.0-0.4) % Absolute Granulocytes (1.4-6.9) Basophils # (0-0.4) D-Dimer (215-500) ng/mL Sodium 136 L (137-145) mmol/L Potassium 4.1 (3.5-5.1) mmol/L Chloride 101 (98-107) mmol/L Carbon Dioxide 26 (22-30) mmol/L Anion Gap 12.2 (5-15) MEQ/L BUN 18 (9-20) mg/dL Creatinine 0.78 (0.66-1.25) mg/dL Estimated GFR > 60.0 ML/MIN Glucose 209 H (74-106) mg/dL Lactic Acid 1.5 (0.4-2.0) Calcium 9.0 (8.4-10.2) mg/dL Total Bilirubin 0.80 (0.2-1.3) mg/dL AST 22 (17-59) U/L ALT 13 (0-50) U/L Alkaline Phosphatase 63 (38-126) U/L Creatine Kinase (55-170) U/L Troponin I (0.000-0.034) ng/mL NT-Pro-B Natriuret Pep (0-1800) pg/mL Serum Total Protein 6.8 (6.3-8.2) g/dL Albumin 3.7 (3.5-5.0) g/dL Urine Color (YELLOW) Urine Appearance (CLEAR) Urine pH (5-6) Ur Specific [place] (1.005-1.025) Urine Protein (Negative) Urine Ketones (NEGATIVE) Urine Blood (0-5) Bronson/ul Urine Nitrite (NEGATIVE) Urine Bilirubin (NEGATIVE) Urine Urobilinogen (0-1) mg/dL Ur Leukocyte Esterase (NEGATIVE) Urine WBC (Auto) (0-5) /HPF Urine RBC (Auto) (0-2) /HPF U Epithel Cells (Auto) (FEW) /HPF Urine Bacteria (Auto) (NEGATIVE) /HPF Urine Mucus (Auto) (NEGATIVE) /HPF Urine Culture Reflexed (NO) Urine Glucose (NEGATIVE) mg/dL Influenza Type A Ag NEGATIVE (NEGATIVE) Influenza Type B Ag NEGATIVE (NEGATIVE) RSV (PCR) NEGATIVE (Negative) 06/03/19 06/03/19 Range/Units 21:25 21:00 WBC 18.3 H (4.0-10.5) K/mm3 RBC 3.99 L (4.1-5.6) M/mm3 Hgb 13.0 (12.5-18.0) gm/dl Hct 38.5 L (42-50) % MCV 96.5 (78-100) fl MCH 32.6 H (26-32) pg MCHC 33.8 (32-36) g/dl RDW 14.5 H (11.5-14.0) % Plt Count 167 (150-450) K/mm3 MPV 9.0 (6-9.5) fl Gran % 83.0 H (36.0-66.0) % Eos # (Auto) 0.01 (0-0.5) Absolute Lymphs (auto) 1.70 (1.0-4.6) Absolute Monos (auto) 1.36 H (0.0-1.3) Lymphocytes % 9.3 L (24.0-44.0) % Monocytes % 7.4 (0.0-12.0) % Eosinophils % 0.1 (0.00-5.0) % Basophils % 0.2 (0.0-0.4) % Absolute Granulocytes 15.24 H (1.4-6.9) Basophils # 0.03 (0-0.4) D-Dimer (215-500) ng/mL Sodium (137-145) mmol/L Potassium (3.5-5.1) mmol/L Chloride (98-107) mmol/L Carbon Dioxide (22-30) mmol/L Anion Gap (5-15) MEQ/L BUN (9-20) mg/dL Creatinine (0.66-1.25) mg/dL Estimated GFR ML/MIN Glucose (74-106) mg/dL Lactic Acid (0.4-2.0) Calcium (8.4-10.2) mg/dL Total Bilirubin (0.2-1.3) mg/dL AST (17-59) U/L ALT (0-50) U/L Alkaline Phosphatase (38-126) U/L Creatine Kinase (55-170) U/L Troponin I < 0.012 (0.000-0.034) ng/mL NT-Pro-B Natriuret Pep (0-1800) pg/mL Serum Total Protein (6.3-8.2) g/dL Albumin (3.5-5.0) g/dL Urine Color (YELLOW) Urine Appearance (CLEAR) Urine pH (5-6) Ur Specific [place] (1.005-1.025) Urine Protein (Negative) Urine Ketones (NEGATIVE) Urine Blood (0-5) Bronson/ul Urine Nitrite (NEGATIVE) Urine Bilirubin (NEGATIVE) Urine Urobilinogen (0-1) mg/dL Ur Leukocyte Esterase (NEGATIVE) Urine WBC (Auto) (0-5) /HPF Urine RBC (Auto) (0-2) /HPF U Epithel Cells (Auto) (FEW) /HPF Urine Bacteria (Auto) (NEGATIVE) /HPF Urine Mucus (Auto) (NEGATIVE) /HPF Urine Culture Reflexed (NO) Urine Glucose (NEGATIVE) mg/dL Influenza Type A Ag (NEGATIVE) Influenza Type B Ag (NEGATIVE) RSV (PCR) (Negative) - Progress Progress: improved Discussed with : Chantal Will see patient in: hospital (observation) - Departure Departure Disposition: Observation Clinical Impression: Urinary tract infection Condition: Stable Critical Care Time: No Referrals: ROWENA VIEYRA MD [Primary Care Provider] -
[2019-06-03] MEDS ORDERED: Levofloxacin 500MG/100ML D5W 500 MG/100 ML BAG IV ONE (22:40)
[2019-06-04 04:13] LABS: ALBUMIN 3.4 g/dL (3.5-5.0); ALKALINE PHOSPHATASE 58 U/L (38-126); ANION GAP 7.9 MEQ/L (5-15); BLOOD UREA NITROGEN 17 mg/dL (9-20); CHLORIDE 101 mmol/L (98-107); Calcium 8.7 mg/dL (8.4-10.2); Carbon Dioxide 29 mmol/L (22-30); Creatinine 1 0.85 mg/dL (0.66-1.25); Glucose 196 mg/dL (74-106); Potassium 4.4 mmol/L (3.5-5.1); SGOT/AST 17 U/L (17-59); SGPT/ALT 11 U/L (0-50); SODIUM 134 mmol/L (137-145); Total Protein 6.3 g/dL (6.3-8.2)
--- NOTE | 2019-06-04 08:15 | PCM.HP ---
History of Present Illness - Chief Complaint Chief Complaint: UTI History of Present Illness: is a 83 year old male pt of Dr. Sherman with CAD, DM who was admitted yesterday with UTI. He had sepsis in the past and was feeling quite weak. Admitted from home. Found to have + nitrites and started on IV antibiotics. This morning he is feeling good. - Review of Systems Constitutional: Weakness Musculoskeletal: Arthralgias (L 4th toe was swelling, seen by Dr. Arora feeling better) All Other Systems: Reviewed and Negative Medications & Allergies Home Medications: Home Medication List Tamsulosin HCl 0.4 mg [Flomax 0.4 MG] 0.4 mg PO BID 04/24/14 [History Confirmed 06/03/19] Atorvastatin Calcium [Lipitor 20MG Tablet] 20 mg PO DAILY 01/04/19 [History Confirmed 06/03/19] Clopidogrel Bisulfate [Clopidogrel] 75 mg PO DAILY 01/04/19 [History Confirmed 06/03/19] Glipizide/Metformin HCl [Glipizide-Metformin 5-500 mg] 1 each PO TID 01/04/19 [ History Confirmed 06/03/19] Lisinopril 20 mg [Zestril 20 MG] 20 mg PO DAILY 01/04/19 [History Confirmed 06/03/19] Tadalafil 5 mg PO DAILY 01/04/19 [History Confirmed 06/03/19] Aspirin EC 81 mg [Ecotrin 81 mg] 81 mg PO DAILY 06/03/19 [History Confirmed 06/03/19] Allergies/Adverse Reactions: Allergies Allergy/AdvReac Type Severity Reaction Status Date / Time No Known Drug Allergies Allergy Verified 01/04/19 19:18 - Past Medical History Past Medical History: Yes Neurological History: No Pertinent History ENT History: No Pertinent History Cardiac History: Coronary Artery Disease, High Cholesterol, Hypertension Respiratory History: No Pertinent History Endocrine Medical History: Diabetes Type II Musculoskelatal History: Arthritis GI Medical History: No Pertinent History History: No Pertinent History Pyscho-Social History: No Pertinent History Male Reproductive Disorders: Prostate Problems - Past Surgical History Past Surgical History: Yes Neuro Surgical History: No Pertinent History Cardiac History: Cardiac Catheterization, Cardiac Stent Respiratory Surgery: No Pertinent History GI Surgical History: Appendectomy Genitourinary Surgical Hx: No Pertinent History Musculskeletal Surgical Hx: Other Male Surgical History: No Pertinent History Other Surgical History: achilles tendon - Social History Smoking Status: Never smoker Exposure to second hand smoke: No Alcohol: None Drug Use: none - Physical Exam Vital Signs: Vital Signs - 24 hr Temp Pulse Resp BP Pulse Ox 06/04/19 03:54 99.1 F 89 22 134/62 95 06/04/19 00:05 83 23 125/65 95 06/03/19 22:39 97 06/03/19 21:30 88 15 150/67 97 06/03/19 20:49 98.7 F 89 19 124/85 95 General Appearance: no apparent distress, alert Neurologic Exam: oriented x 3, cooperative Eye Exam: eyes nml inspection Ears, Nose, Throat Exam: moist mucous membranes Neck Exam: normal inspection, non-tender, No lymphadenopathy Respiratory Exam: normal breath sounds, lungs clear, No crackles/rales, No rhonchi, No wheezing Cardiovascular Exam: regular rate/rhythm, normal heart sounds, No murmur Gastrointestinal/Abdomen Exam: soft, normal bowel sounds, No tenderness, No distention, No mass, No guarding, No rebound Extremity Exam: No pedal edema, No swelling Skin Exam: normal color, warm, dry, No rash Results - Labs Lab/Micro Results: Accuchecks Date 06/04/19 Time 07:39 Accucheck Value: 180 Lab Results-Last 24 Hours 06/03/19 06/03/19 06/03/19 Range/Units 21:00 21:25 21:25 WBC 18.3 H (4.0-10.5) K/mm3 RBC 3.99 L (4.1-5.6) M/mm3 Hgb 13.0 (12.5-18.0) gm/dl Hct 38.5 L (42-50) % MCV 96.5 (78-100) fl MCH 32.6 H (26-32) pg MCHC 33.8 (32-36) g/dl RDW 14.5 H (11.5-14.0) % Plt Count 167 (150-450) K/mm3 MPV 9.0 (6-9.5) fl Gran % 83.0 H (36.0-66.0) % Eos # (Auto) 0.01 (0-0.5) Absolute Lymphs (auto) 1.70 (1.0-4.6) Absolute Monos (auto) 1.36 H (0.0-1.3) Lymphocytes % 9.3 L (24.0-44.0) % Monocytes % 7.4 (0.0-12.0) % Eosinophils % 0.1 (0.00-5.0) % Basophils % 0.2 (0.0-0.4) % Absolute Granulocytes 15.24 H (1.4-6.9) Basophils # 0.03 (0-0.4) D-Dimer (215-500) ng/mL Sodium (137-145) mmol/L Potassium (3.5-5.1) mmol/L Chloride (98-107) mmol/L Carbon Dioxide (22-30) mmol/L Anion Gap (5-15) MEQ/L BUN (9-20) mg/dL Creatinine (0.66-1.25) mg/dL Estimated GFR ML/MIN Glucose (74-106) mg/dL Lactic Acid 1.5 (0.4-2.0) Calcium (8.4-10.2) mg/dL Total Bilirubin (0.2-1.3) mg/dL AST (17-59) U/L ALT (0-50) U/L Alkaline Phosphatase (38-126) U/L Creatine Kinase (55-170) U/L Troponin I < 0.012 (0.000-0.034) ng/mL NT-Pro-B Natriuret Pep (0-1800) pg/mL Serum Total Protein (6.3-8.2) g/dL Albumin (3.5-5.0) g/dL Urine Color (YELLOW) Urine Appearance (CLEAR) Urine pH (5-6) Ur Specific [place] (1.005-1.025) Urine Protein (Negative) Urine Ketones (NEGATIVE) Urine Blood (0-5) Bronson/ul Urine Nitrite (NEGATIVE) Urine Bilirubin (NEGATIVE) Urine Urobilinogen (0-1) mg/dL Ur Leukocyte Esterase (NEGATIVE) Urine WBC (Auto) (0-5) /HPF Urine RBC (Auto) (0-2) /HPF U Epithel Cells (Auto) (FEW) /HPF Urine Bacteria (Auto) (NEGATIVE) /HPF Urine Mucus (Auto) (NEGATIVE) /HPF Urine Culture Reflexed (NO) Urine Glucose (NEGATIVE) mg/dL Influenza Type A Ag (NEGATIVE) Influenza Type B Ag (NEGATIVE) RSV (PCR) (Negative) 06/03/19 06/03/19 06/03/19 Range/Units 21:25 21:25 21:25 WBC (4.0-10.5) K/mm3 RBC (4.1-5.6) M/mm3 Hgb (12.5-18.0) gm/dl Hct (42-50) % MCV (78-100) fl MCH (26-32) pg MCHC (32-36) g/dl RDW (11.5-14.0) % Plt Count (150-450) K/mm3 MPV (6-9.5) fl Gran % (36.0-66.0) % Eos # (Auto) (0-0.5) Absolute Lymphs (auto) (1.0-4.6) Absolute Monos (auto) (0.0-1.3) Lymphocytes % (24.0-44.0) % Monocytes % (0.0-12.0) % Eosinophils % (0.00-5.0) % Basophils % (0.0-0.4) % Absolute Granulocytes (1.4-6.9) Basophils # (0-0.4) D-Dimer (215-500) ng/mL Sodium 136 L (137-145) mmol/L Potassium 4.1 (3.5-5.1) mmol/L Chloride 101 (98-107) mmol/L Carbon Dioxide 26 (22-30) mmol/L Anion Gap 12.2 (5-15) MEQ/L BUN 18 (9-20) mg/dL Creatinine 0.78 (0.66-1.25) mg/dL Estimated GFR > 60.0 ML/MIN Glucose 209 H (74-106) mg/dL Lactic Acid (0.4-2.0) Calcium 9.0 (8.4-10.2) mg/dL Total Bilirubin 0.80 (0.2-1.3) mg/dL AST 22 (17-59) U/L ALT 13 (0-50) U/L Alkaline Phosphatase 63 (38-126) U/L Creatine Kinase 24 L (55-170) U/L Troponin I (0.000-0.034) ng/mL NT-Pro-B Natriuret Pep 611 (0-1800) pg/mL Serum Total Protein 6.8 (6.3-8.2) g/dL Albumin 3.7 (3.5-5.0) g/dL Urine Color (YELLOW) Urine Appearance (CLEAR) Urine pH (5-6) Ur Specific [place] (1.005-1.025) Urine Protein (Negative) Urine Ketones (NEGATIVE) Urine Blood (0-5) Bronson/ul Urine Nitrite (NEGATIVE) Urine Bilirubin (NEGATIVE) Urine Urobilinogen (0-1) mg/dL Ur Leukocyte Esterase (NEGATIVE) Urine WBC (Auto) (0-5) /HPF Urine RBC (Auto) (0-2) /HPF U Epithel Cells (Auto) (FEW) /HPF Urine Bacteria (Auto) (NEGATIVE) /HPF Urine Mucus (Auto) (NEGATIVE) /HPF Urine Culture Reflexed (NO) Urine Glucose (NEGATIVE) mg/dL Influenza Type A Ag NEGATIVE (NEGATIVE) Influenza Type B Ag NEGATIVE (NEGATIVE) RSV (PCR) NEGATIVE (Negative) 06/03/19 06/03/19 06/04/19 Range/Units 21:25 21:44 01:25 WBC (4.0-10.5) K/mm3 RBC (4.1-5.6) M/mm3 Hgb (12.5-18.0) gm/dl Hct (42-50) % MCV (78-100) fl MCH (26-32) pg MCHC (32-36) g/dl RDW (11.5-14.0) % Plt Count (150-450) K/mm3 MPV (6-9.5) fl Gran % (36.0-66.0) % Eos # (Auto) (0-0.5) Absolute Lymphs (auto) (1.0-4.6) Absolute Monos (auto) (0.0-1.3) Lymphocytes % (24.0-44.0) % Monocytes % (0.0-12.0) % Eosinophils % (0.00-5.0) % Basophils % (0.0-0.4) % Absolute Granulocytes (1.4-6.9) Basophils # (0-0.4) D-Dimer 487 (215-500) ng/mL Sodium (137-145) mmol/L Potassium (3.5-5.1) mmol/L Chloride (98-107) mmol/L Carbon Dioxide (22-30) mmol/L Anion Gap (5-15) MEQ/L BUN (9-20) mg/dL Creatinine (0.66-1.25) mg/dL Estimated GFR ML/MIN Glucose (74-106) mg/dL Lactic Acid (0.4-2.0) Calcium (8.4-10.2) mg/dL Total Bilirubin (0.2-1.3) mg/dL AST (17-59) U/L ALT (0-50) U/L Alkaline Phosphatase (38-126) U/L Creatine Kinase (55-170) U/L Troponin I < 0.012 (0.000-0.034) ng/mL NT-Pro-B Natriuret Pep (0-1800) pg/mL Serum Total Protein (6.3-8.2) g/dL Albumin (3.5-5.0) g/dL Urine Color YELLOW (YELLOW) Urine Appearance CLOUDY (CLEAR) Urine pH 6.0 (5-6) Ur Specific [place] 1.020 (1.005-1.025) Urine Protein NEGATIVE (Negative) Urine Ketones SMALL (NEGATIVE) Urine Blood MODERATE (0-5) Bronson/ul Urine Nitrite POSITIVE (NEGATIVE) Urine Bilirubin NEGATIVE (NEGATIVE) Urine Urobilinogen NEGATIVE (0-1) mg/dL Ur Leukocyte Esterase LARGE (NEGATIVE) Urine WBC (Auto) 26-50 (0-5) /HPF Urine RBC (Auto) 16-25 (0-2) /HPF U Epithel Cells (Auto) RARE (FEW) /HPF Urine Bacteria (Auto) RARE (NEGATIVE) /HPF Urine Mucus (Auto) SLIGHT (NEGATIVE) /HPF Urine Culture Reflexed ORDERED SEPARATELY (NO) Urine Glucose NEGATIVE (NEGATIVE) mg/dL Influenza Type A Ag (NEGATIVE) Influenza Type B Ag (NEGATIVE) RSV (PCR) (Negative) 06/04/19 06/04/19 06/04/19 Range/Units 04:00 04:03 04:03 WBC (4.0-10.5) K/mm3 RBC (4.1-5.6) M/mm3 Hgb (12.5-18.0) gm/dl Hct (42-50) % MCV (78-100) fl MCH (26-32) pg MCHC (32-36) g/dl RDW (11.5-14.0) % Plt Count (150-450) K/mm3 MPV (6-9.5) fl Gran % (36.0-66.0) % Eos # (Auto) (0-0.5) Absolute Lymphs (auto) (1.0-4.6) Absolute Monos (auto) (0.0-1.3) Lymphocytes % (24.0-44.0) % Monocytes % (0.0-12.0) % Eosinophils % (0.00-5.0) % Basophils % (0.0-0.4) % Absolute Granulocytes (1.4-6.9) Basophils # (0-0.4) D-Dimer (215-500) ng/mL Sodium 134 L (137-145) mmol/L Potassium 4.4 (3.5-5.1) mmol/L Chloride 101 (98-107) mmol/L Carbon Dioxide 29 (22-30) mmol/L Anion Gap 7.9 (5-15) MEQ/L BUN 17 (9-20) mg/dL Creatinine 0.85 (0.66-1.25) mg/dL Estimated GFR > 60.0 ML/MIN Glucose 196 H (74-106) mg/dL Lactic Acid 1.1 (0.4-2.0) Calcium 8.7 (8.4-10.2) mg/dL Total Bilirubin 0.80 (0.2-1.3) mg/dL AST 17 (17-59) U/L ALT 11 (0-50) U/L Alkaline Phosphatase 58 (38-126) U/L Creatine Kinase (55-170) U/L Troponin I < 0.012 (0.000-0.034) ng/mL NT-Pro-B Natriuret Pep (0-1800) pg/mL Serum Total Protein 6.3 (6.3-8.2) g/dL Albumin 3.4 L (3.5-5.0) g/dL Urine Color (YELLOW) Urine Appearance (CLEAR) Urine pH (5-6) Ur Specific [place] (1.005-1.025) Urine Protein (Negative) Urine Ketones (NEGATIVE) Urine Blood (0-5) Bronson/ul Urine Nitrite (NEGATIVE) Urine Bilirubin (NEGATIVE) Urine Urobilinogen (0-1) mg/dL Ur Leukocyte Esterase (NEGATIVE) Urine WBC (Auto) (0-5) /HPF Urine RBC (Auto) (0-2) /HPF U Epithel Cells (Auto) (FEW) /HPF Urine Bacteria (Auto) (NEGATIVE) /HPF Urine Mucus (Auto) (NEGATIVE) /HPF Urine Culture Reflexed (NO) Urine Glucose (NEGATIVE) mg/dL Influenza Type A Ag (NEGATIVE) Influenza Type B Ag (NEGATIVE) RSV (PCR) (Negative) 06/04/19 Range/Units 05:50 WBC (4.0-10.5) K/mm3 RBC (4.1-5.6) M/mm3 Hgb (12.5-18.0) gm/dl Hct (42-50) % MCV (78-100) fl MCH (26-32) pg MCHC (32-36) g/dl RDW (11.5-14.0) % Plt Count (150-450) K/mm3 MPV (6-9.5) fl Gran % (36.0-66.0) % Eos # (Auto) (0-0.5) Absolute Lymphs (auto) (1.0-4.6) Absolute Monos (auto) (0.0-1.3) Lymphocytes % (24.0-44.0) % Monocytes % (0.0-12.0) % Eosinophils % (0.00-5.0) % Basophils % (0.0-0.4) % Absolute Granulocytes (1.4-6.9) Basophils # (0-0.4) D-Dimer (215-500) ng/mL Sodium (137-145) mmol/L Potassium (3.5-5.1) mmol/L Chloride (98-107) mmol/L Carbon Dioxide (22-30) mmol/L Anion Gap (5-15) MEQ/L BUN (9-20) mg/dL Creatinine (0.66-1.25) mg/dL Estimated GFR ML/MIN Glucose (74-106) mg/dL Lactic Acid (0.4-2.0) Calcium (8.4-10.2) mg/dL Total Bilirubin (0.2-1.3) mg/dL AST (17-59) U/L ALT (0-50) U/L Alkaline Phosphatase (38-126) U/L Creatine Kinase (55-170) U/L Troponin I < 0.012 (0.000-0.034) ng/mL NT-Pro-B Natriuret Pep (0-1800) pg/mL Serum Total Protein (6.3-8.2) g/dL Albumin (3.5-5.0) g/dL Urine Color (YELLOW) Urine Appearance (CLEAR) Urine pH (5-6) Ur Specific [place] (1.005-1.025) Urine Protein (Negative) Urine Ketones (NEGATIVE) Urine Blood (0-5) Bronson/ul Urine Nitrite (NEGATIVE) Urine Bilirubin (NEGATIVE) Urine Urobilinogen (0-1) mg/dL Ur Leukocyte Esterase (NEGATIVE) Urine WBC (Auto) (0-5) /HPF Urine RBC (Auto) (0-2) /HPF U Epithel Cells (Auto) (FEW) /HPF Urine Bacteria (Auto) (NEGATIVE) /HPF Urine Mucus (Auto) (NEGATIVE) /HPF Urine Culture Reflexed (NO) Urine Glucose (NEGATIVE) mg/dL Influenza Type A Ag (NEGATIVE) Influenza Type B Ag (NEGATIVE) RSV (PCR) (Negative) Accuchecks Date 06/04/19 Time 07:39 Accucheck Value: 180 - Radiology Impressions Radiology Exams & Impressions: Radiology Procedures Category Date Time Status CHEST 1 VIEW (PORTABLE) Stat Exams 06/03/19 20:53 Taken Assessment/Plan (1) Urinary tract infection Current Visit: Yes Status: Acute Qualifiers: Urinary tract infection type: acute cystitis Assessment & Plan: advised would stay in at least until tomorrow with IV antibiotics. Code(s): N39.0 - URINARY TRACT INFECTION, SITE NOT SPECIFIED (2) CAD (coronary artery disease) Current Visit: Yes Status: Acute Code(s): I25.10 - ATHSCL HEART DISEASE OF [place] CORONARY ARTERY W/O ANG PCTRS (3) Diabetes mellitus Current Visit: Yes Status: Acute Code(s): E11.9 - TYPE 2 DIABETES MELLITUS WITHOUT COMPLICATIONS
--- NOTE | 2019-06-04 09:03 | XRAY ---
Indication: Weakness. Comparison: January 04, 2019. Portable chest demonstrates stable left base discoid atelectasis/scarring with new focus right upper lung. Remaining heart and lungs unremarkable. Bony thorax intact again with degenerative changes and old right rib fractures. Impression: Nonacute chest with chronic features.
[2019-06-04] MEDS ORDERED: MEDICATION INTERVENTION MC SCH (09:45)
[2019-06-04] MEDS ORDERED: GLIPIZIDE PO SCH (10:00)
[2019-06-04] MEDS ORDERED: TADALAFIL 5 MG PO SCH (10:00)
[2019-06-04] MEDS ORDERED: METFORMIN HCL PO SCH (10:00)
[2019-06-04] MEDS ORDERED: NON-FORMULARY ITEM (Atorvastatin Calcium 20 MG) PO SCH (10:00)
[2019-06-04] MEDS: Flomax 0.4 MG PO SCH ×2 (10:18→21:28)
[2019-06-04] MEDS: PLAVIX 75 MG Tablet PO SCH (10:18)
[2019-06-04] MEDS: ECOTRIN 81 MG PO SCH (10:18)
[2019-06-04] MEDS: Zestril 20 MG PO SCH (10:19)
[2019-06-04] MEDS: Glucotrol 5 MG PO SCH ×2 (11:25→17:21)
[2019-06-04] MEDS: Glucophage 500 MG PO SCH ×2 (11:25→17:20)
[2019-06-04] MEDS: Sodium Chloride 0.9% 1000 ML 1,000 ML IV SCH (18:52)
[2019-06-04] MEDS: TYLENOL 325 MG PO PRN (21:28)
[2019-06-04] MEDS ORDERED: ROCEPHIN 1 Gm-D5w 50 ml Bag** 1 G/50 ML IVPB IV SCH (22:00)
[2019-06-04] MEDS ORDERED: ZOCOR 20MG PO SCH (22:00)
[2019-06-04] MEDS ORDERED: LEVOFLOXACIN 750MG/150ML D5W 750 MG/150 ML BAG IV SCH (22:00)
[2019-06-04] MEDS ORDERED: Proscar 5 MG PO SCH (22:00)
[2019-06-05] MEDS: PLAVIX 75 MG Tablet PO SCH (08:43)
[2019-06-05] MEDS: ECOTRIN 81 MG PO SCH (08:43)
[2019-06-05] MEDS: Zestril 20 MG PO SCH (08:43)
[2019-06-05] MEDS: Glucotrol 5 MG PO SCH ×2 (08:43→11:56)
[2019-06-05] MEDS: Glucophage 500 MG PO SCH ×2 (08:43→11:56)
[2019-06-05] MEDS: Flomax 0.4 MG PO SCH (08:43)
[2019-06-05] MEDS: TYLENOL 325 MG PO PRN (08:51)
[2019-06-05 11:50] VITALS: BP 129/81; PULSE 72; O2SAT 96
--- NOTE | 2019-06-05 12:36 | PCM.DCORD ---
- Discharge Discharge Date: 06/05/19 Disposition: Home, Self-Care Condition: Good Prescriptions: New Cefdinir [Omnicef] 300 mg PO BID #10 capsule Continue Tamsulosin HCl 0.4 mg [Flomax 0.4 MG] 0.4 mg PO BID Glipizide/Metformin HCl [Glipizide-Metformin 5-500 mg] 1 each PO TID Atorvastatin Calcium [Lipitor 20MG Tablet] 20 mg PO DAILY Clopidogrel Bisulfate [Clopidogrel] 75 mg PO DAILY Lisinopril 20 mg [Zestril 20 MG] 20 mg PO DAILY Tadalafil 5 mg PO DAILY Aspirin EC 81 mg [Ecotrin 81 mg] 81 mg PO DAILY Finasteride 5 mg PO HS Follow up with: ROWENA VIEYRA MD [Primary Care Provider] - 1 Week
[2019-06-05] MEDS ORDERED: ROCEPHIN 1 Gm-D5w 50 ml Bag** 1 G/50 ML IVPB IV ONE (12:45)
[2019-06-05] MEDS ORDERED: Omnicef 125 MG/5 ML SUSP PO ONE (13:28)
[2019-06-05] MEDS ORDERED: NON-FORMULARY ITEM PO SCH (14:00)
--- NOTE | 2019-06-06 15:39 | DS ---
DISCHARGE DIAGNOSES: 1) URINARY TRACT INFECTION. 2) HISTORY OF CORONARY ARTERY DISEASE. 3) DIABETES MELLITUS TYPE 2. DISCHARGE PHYSICAL EXAMINATION: VITALS: Temperature current 97.8F, heart rate 72, respiratory rate 18, blood pressure 129/81. Oxygen saturation 96% on room air. GENERAL: The patient is a pleasant talkative man in no acute distress. CVS: He had a regular rate and rhythm. No murmurs, gallops or rubs. CHEST: Clear to auscultation bilaterally. ABDOMEN: Soft, nontender, nondistended with normal bowel sounds. EXTREMITIES: No clubbing, cyanosis or edema. SKIN: Warm, dry and intact. HOSPITAL COURSE: 1) URINARY TRACT INFECTION: He was started on ceftriaxone and levofloxacin IV. His urine culture came back growing Klebsiella that was sensitive to both. I changed him to Cefdinir 300 mg p.o. b.i.d. to finish out a seven day course. He will need to follow up with his primary care doctor. 2) CORONARY ARTERY DISEASE: He was continued on his home medication. 3) DIABETES MELLITUS TYPE 2: He was continued on his home medication. DISCHARGE MEDICATIONS: Please see the discharge order. FOLLOW UP: To follow up with his primary care provider. DISPOSITION: The patient was discharged to home in good condition.
== END 2019-06-05 13:53 | disposition home or self-care (01) ==
LOC: ED 20:39 → MED SURG 06-04 03:28
PROVIDERS: ADMIT Family Medicine; ATTEND Family Medicine
DX: N39.0 Urinary tract infection, site not specified (principal); E11.9 Type 2 diabetes mellitus without complications; I10 Essential (primary) hypertension; E78.00 Pure hypercholesterolemia, unspecified; Z86.79 Personal history of other diseases of the circulatory system; Z79.899 Other long term (current) drug therapy
CPT/HCPCS: 36000; 36415; 71045; 80053; 81001; 82550; 82962; 83036; 83605; 83880; 84484; 85025; 85379; 87040; 87077; 87086; 87186; 87631; 93005; 93041; 96360; 96365; 96367; 99285; G0378; J0696; J1956; A9270-GY

== ENCOUNTER 2019-06-23 16:27 | Emergency (ER) | payer MEDICARE ==
[2019-06-23] MEDS ORDERED: Hydromorphone 1 mg/ml Ampule IM ONE (17:55)
[2019-06-23] MEDS ORDERED: Phenergan 25 MG INJ IM ONE (17:55)
--- NOTE | 2019-06-23 17:57 | ERPHSYRPT ---
- History of Present Illness Time Seen by Provider: 06/23/19 17:43 Source: patient Exam Limitations: no limitations Patient Subjective Stated Complaint: pain in left lower back and left upper lateral and medial thigh, hx of back surgery in 2015, pt went to [facility] on Monday due to his surgeon being there and they took a CT but didn't see anything , they told him to go see Dr. Vieyra, he was given Alice and Docusate sodium. Pt was here 2 weeks ago with a UTI Triage Nursing Assessment: Pt brought to the ER by his son, walked to the room with no assistance, rates pain 8/10, vitals wnl, pulses normal, lungs clear, no pain with palpatation, no visible markings, denies trauma, states that he bent over to get something out of the dresser drawer when it began hurting, states that he needs something to help him sleep as the Alice isn't doing the trick, doesn't appear to be in any distress Physician History: pt has had pain in his left buttocks and left thigh for the past 3 days; went to [facility] 2 days ago where a ct-scan was done of the chest/abd/pel and showed significant disc disease especially at L4-5 and enlarged prostate with hypertrophhic changes of the urinary bladder. pt denies chest pain, shortness of air, fever. Allergies/Adverse Reactions: No Known Drug Allergies Allergy (Verified 06/23/19 16:50) Home Medications: Tamsulosin HCl 0.4 mg [Flomax 0.4 MG] 0.4 mg PO BID 04/24/14 [History] Atorvastatin Calcium [Lipitor 20MG Tablet] 20 mg PO DAILY 01/04/19 [History] Clopidogrel Bisulfate [Clopidogrel] 75 mg PO DAILY 01/04/19 [History] Glipizide/Metformin HCl [Glipizide-Metformin 5-500 mg] 1 each PO TID 01/04/19 [ History] Lisinopril 20 mg [Zestril 20 MG] 20 mg PO DAILY 01/04/19 [History] tadalafiL [Tadalafil] 5 mg PO DAILY 01/04/19 [History] Aspirin EC 81 mg [Ecotrin 81 mg] 81 mg PO DAILY 06/03/19 [History] Finasteride 5 mg PO HS 06/04/19 [History] Docusate Sodium 100 mg [Colace 100 MG] 100 mg PO BID 06/23/19 [History] Hydrocodone/Acetaminophen [Hydrocodone-Acetamin 5-325 mg] 1 tab PO QID PRN 06/23 [History] Hx Tetanus, Diphtheria Vaccination/Date Given: No Hx Influenza Vaccination/Date Given: Yes Hx Pneumococcal Vaccination/Date Given: Yes - Review of Systems Respiratory: No Dyspnea Cardiac: No Chest Pain Abdominal/Gastrointestinal: No Abdominal Pain Musculoskeletal: Joint Pain (left hip and left thigh pain) All Other Systems: Reviewed and Negative - Past Medical History Pertinent Past Medical History: Yes Neurological History: No Pertinent History ENT History: No Pertinent History Cardiac History: Coronary Artery Disease, High Cholesterol, Hypertension Respiratory History: No Pertinent History Endocrine Medical History: Diabetes Type II Musculoskeletal History: Arthritis GI Medical History: No Pertinent History History: No Pertinent History Psycho-Social History: No Pertinent History Male Reproductive Disorders: Prostate Problems - Past Surgical History Past Surgical History: Yes Neuro Surgical History: No Pertinent History Cardiac: Cardiac Catheterization, Cardiac Stent Respiratory: No Pertinent History Gastrointestinal: Appendectomy Genitourinary: No Pertinent History Musculoskeletal: Other Male Surgical History: No Pertinent History Other Surgical History: achilles tendon - Social History Smoking Status: Never smoker Exposure to second hand smoke: No Drug Use: none Patient Lives Alone: No - Nursing Vital Signs Nursing Vital Signs: Initial Vital Signs Temperature 97.5 F 06/23/19 16:38 Pulse Rate 71 06/23/19 16:38 Blood Pressure 142/93 06/23/19 16:38 O2 Sat by Pulse Oximetry 97 06/23/19 16:38 Pain Scale Pain Intensity [Left Lower 8 Lateral Back] Pain Intensity 0 - Physical Exam General Appearance: alert Eye Exam: eyes nml inspection Ears, Nose, Throat Exam: pharynx normal Neck Exam: normal inspection Respiratory Exam: lungs clear Cardiovascular Exam: normal heart sounds Gastrointestinal Exam: soft, normal bowel sounds Back Exam: normal inspection Extremity Exam: No tenderness Peripheral Pulses: dorsalis-pedis (R): 1+, dorsalis-pedis (L): 1+ Neurologic Exam: alert, cooperative Skin Exam: warm, dry SpO2 Interpretation: normal SpO2: 97 O2 Delivery: Room Air - Course Nursing assessment & vital signs reviewed: Yes Ordered Tests: Active Orders 24 hr Category Date Time Status CULTURE,URINE Stat Lab 06/23/19 18:05 Received UA W/RFX UR CULTURE Stat Lab 06/23/19 18:05 Completed Medication Summary Discontinued Medications Generic Name Dose Route Start Last Admin Trade Name Martha PRN Reason Stop Dose Admin Hydromorphone HCl 2 mg 06/23/19 17:55 06/23/19 18:02 Hydromorphone 1 Mg/Ml Ampule IM 06/23/19 17:56 2 mg STAT ONE Administration Hydromorphone HCl Confirm 06/23/19 17:59 Hydromorphone 1 Mg/Ml Ampule Administered 06/23/19 18:00 Dose 2 mg .ROUTE .STK-MED ONE Promethazine HCl 25 mg 06/23/19 17:55 06/23/19 18:02 Phenergan 25 Mg Inj IM 06/23/19 17:56 25 mg STAT ONE Administration Promethazine HCl Confirm 06/23/19 17:59 Phenergan 25 Mg Inj Administered 06/23/19 18:00 Dose 25 mg .ROUTE .STK-MED ONE Lab/Rad Data: Laboratory Results 06/23/19 Range/Units 18:05 Urine Color YELLOW (YELLOW) Urine Appearance CLEAR (CLEAR) Urine pH 5.0 (5-6) Ur Specific [place] 1.019 (1.005-1.025) Urine Protein NEGATIVE (Negative) Urine Ketones NEGATIVE (NEGATIVE) Urine Blood SMALL (0-5) Bronson/ul Urine Nitrite NEGATIVE (NEGATIVE) Urine Bilirubin NEGATIVE (NEGATIVE) Urine Urobilinogen NEGATIVE (0-1) mg/dL Ur Leukocyte Esterase TRACE (NEGATIVE) Urine WBC (Auto) 0-2 (0-5) /HPF Urine RBC (Auto) NONE (0-2) /HPF U Epithel Cells (Auto) NONE (FEW) /HPF Urine Bacteria (Auto) NONE (NEGATIVE) /HPF Urine Mucus (Auto) SLIGHT (NEGATIVE) /HPF Urine Culture Reflexed YES (NO) Urine Glucose 50 (NEGATIVE) mg/dL - Progress Progress: improved - Departure Departure Disposition: Home Clinical Impression: Sciatica Condition: Fair Critical Care Time: No Referrals: ROWENA VIEYRA MD [Primary Care Provider] - Instructions: Sciatica (DC) Additional Instructions: follow up with dr vieyra tomorrow.
[2019-06-23] MEDS ORDERED: Hydromorphone 1 mg/ml Ampule ONE (17:59)
[2019-06-23] MEDS ORDERED: Phenergan 25 MG INJ ONE (17:59)
[2019-06-23 18:16] LABS: Appearance CLEAR (CLEAR); Bilirubin NEGATIVE (NEGATIVE); Blood SMALL Ery/ul (0-5); Glucose 50 mg/dL (NEGATIVE); Ketones NEGATIVE (NEGATIVE); Leukocyte Esterase TRACE (NEGATIVE); Mucus SLIGHT /HPF (NEGATIVE); Nitrite NEGATIVE (NEGATIVE); Protein,Urine Dip NEGATIVE (Negative); Specific Gravity 1.019 (1.005-1.025); Urobilinogen NEGATIVE mg/dL (0-1); WBC 0-2 /HPF (0-5)
[2019-06-23 20:30] VITALS: BP 118/64; PULSE 73; O2SAT 96
== END 2019-06-23 20:32 | disposition home or self-care (01) ==
LOC: ED 16:27
DX: M54.30 Sciatica, unspecified side (principal); I10 Essential (primary) hypertension; E11.9 Type 2 diabetes mellitus without complications; I25.10 Atherosclerotic heart disease of native coronary artery without angina pectoris; E78.00 Pure hypercholesterolemia, unspecified; M19.90 Unspecified osteoarthritis, unspecified site
CPT/HCPCS: 81001; 87086; 96372; 99284; J1170; J2550

== ENCOUNTER 2019-06-24 05:36 | Observation (INO) | payer MEDICARE ==
[2019-06-24] MEDS ORDERED: Hydromorphone 1 mg/ml Ampule IV ONE (06:03)
[2019-06-24] MEDS ORDERED: Norflex 60 MG/2 ML IM ONE (06:03)
--- NOTE | 2019-06-24 06:03 | ERPHSYRPT ---
- History of Present Illness Time Seen by Provider: 06/24/19 05:59 Source: patient, family Exam Limitations: no limitations Patient Subjective Stated Complaint: Pt was in ER on 06/23/19 for back pain. Was given a shot for pain and sent home with pain pills. Took a pill at 0200 this morning and the pain woke him back up at 0415. States when he got up he was very dizzy Triage Nursing Assessment: Pt brought to ambulance bay doors in personal vehicle by son. Pt was assisted out of the vehicle by staff onto a stretcher. Alert & oriented. Respirations easy and non-labored. Skin pink, warm, and dry. Pt was able to change into a gown on his own while laying in bed. Physician History: pt required more pain med at home but became unsteady and slid back against closet door - no apparaent trauma of additoinal pain but cannot walk without assistance and still has severe 10/10 back pain neuro vasc intact; Timing/Duration: today Method of Injury: near fall Quality: radiating Back Pain Location: lumbar spine Back Pain Radiation: upper legs, lower legs Severity of Pain-Max: severe Severity of Pain-Current: severe Modifying Factors: Improves With: movement, pain medication Associated Symptoms: numbness in legs/feet, lower back pain Previous symptoms: same symptoms as today, recently seen, recently treated Allergies/Adverse Reactions: No Known Drug Allergies Allergy (Verified 06/23/19 16:50) Home Medications: Tamsulosin HCl 0.4 mg [Flomax 0.4 MG] 0.4 mg PO BID 04/24/14 [History] Atorvastatin Calcium [Lipitor 20MG Tablet] 20 mg PO DAILY 01/04/19 [History] Clopidogrel Bisulfate [Clopidogrel] 75 mg PO DAILY 01/04/19 [History] Glipizide/Metformin HCl [Glipizide-Metformin 5-500 mg] 1 each PO TID 01/04/19 [ History] Lisinopril 20 mg [Zestril 20 MG] 20 mg PO DAILY 01/04/19 [History] tadalafiL [Tadalafil] 5 mg PO DAILY 01/04/19 [History] Aspirin EC 81 mg [Ecotrin 81 mg] 81 mg PO DAILY 06/03/19 [History] Finasteride 5 mg PO HS 06/04/19 [History] Docusate Sodium 100 mg [Colace 100 MG] 100 mg PO BID 06/23/19 [History] Hydrocodone/Acetaminophen [Hydrocodone-Acetamin 5-325 mg] 1 tab PO QID PRN 06/23 [History] Hx Tetanus, Diphtheria Vaccination/Date Given: No Hx Influenza Vaccination/Date Given: Yes Hx Pneumococcal Vaccination/Date Given: Yes - Review of Systems Constitutional: No Fever, No Chills Eyes: No Symptoms Ears, Nose, & Throat: No Symptoms Respiratory: No Cough, No Dyspnea Cardiac: No Chest Pain, No Edema, No Syncope Abdominal/Gastrointestinal: No Abdominal Pain, No Nausea, No Vomiting, No Diarrhea Genitourinary Symptoms: No Dysuria Musculoskeletal: Back Pain, No Neck Pain Skin: No Rash Neurological: No Dizziness, No Focal Weakness, No Sensory Changes Psychological: No Symptoms Endocrine: No Symptoms All Other Systems: Reviewed and Negative - Past Medical History Pertinent Past Medical History: Yes Neurological History: No Pertinent History ENT History: No Pertinent History Cardiac History: Coronary Artery Disease, High Cholesterol, Hypertension Respiratory History: No Pertinent History Endocrine Medical History: Diabetes Type II Musculoskeletal History: Arthritis GI Medical History: No Pertinent History History: No Pertinent History Psycho-Social History: No Pertinent History Male Reproductive Disorders: Prostate Problems - Past Surgical History Past Surgical History: Yes Neuro Surgical History: No Pertinent History Cardiac: Cardiac Catheterization, Cardiac Stent Respiratory: No Pertinent History Gastrointestinal: Appendectomy Genitourinary: No Pertinent History Musculoskeletal: Other Male Surgical History: No Pertinent History Other Surgical History: achilles tendon, back surgery - Social History Smoking Status: Never smoker Exposure to second hand smoke: No Drug Use: none Patient Lives Alone: No - Nursing Vital Signs Nursing Vital Signs: Initial Vital Signs Temperature 97.3 F 06/24/19 05:38 Pulse Rate 99 H 06/24/19 05:38 Respiratory Rate 18 06/24/19 05:38 Blood Pressure 105/62 06/24/19 05:38 O2 Sat by Pulse Oximetry 96 06/24/19 05:38 Pain Scale Pain Intensity [Anterior Back] 10 Pain Intensity 8 - Physical Exam General Appearance: no apparent distress, alert Eye Exam: PERRL/EOMI, eyes nml inspection Neck Exam: normal inspection, non-tender, supple, full range of motion, No meningismus, No midline tenderness Respiratory Exam: normal breath sounds, lungs clear, No respiratory distress Cardiovascular Exam: regular rate/rhythm, normal heart sounds Gastrointestinal Exam: soft, No tenderness, No mass Rectal Exam: deferred Back Exam: decreased range of motion, muscle spasm Extremity Exam: normal inspection, normal range of motion, No calf tenderness, No pedal edema Peripheral Pulses: carotid (R): 2+, carotid (L): 2+, femoral (R): 2+, femoral (L ): 2+, dorsalis-pedis (R): 2+, dorsalis-pedis (L): 2+ Neurologic Exam: alert, oriented x 3, 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, 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 nml as tested, normal mood/affect, nml station & gait, sensation nml, No motor deficits Skin Exam: normal color, warm, dry, No rash SpO2: 96 - Course Nursing assessment & vital signs reviewed: Yes Ordered Tests: Active Orders 24 hr Category Date Time Status IV Insertion STAT Care 06/24/19 06:03 Active Medication Summary Generic Name Dose Route Start Last Admin Trade Name Freq PRN Reason Stop Dose Admin Sodium Chloride 1,000 mls @ 50 mls/hr 06/24/19 06:15 06/24/19 06:09 Sodium Chloride 0.9% 1000 Ml IV 07/24/19 06:14 50 mls/hr .Q20H MANAV Administration Sodium Chloride 1,000 mls @ 999 mls/hr 06/24/19 06:25 Sodium Chloride 0.9% 1000 Ml IV 06/24/19 07:25 .Q1H1M STA Discontinued Medications Generic Name Dose Route Start Last Admin Trade Name Freq PRN Reason Stop Dose Admin Hydromorphone HCl 1 mg 06/24/19 06:03 06/24/19 06:11 Hydromorphone 1 Mg/Ml Ampule IV 06/24/19 06:04 1 mg STAT ONE Administration Hydromorphone HCl Confirm 06/24/19 06:08 Hydromorphone 1 Mg/Ml Ampule Administered 06/24/19 06:09 Dose 1 mg .ROUTE .STK-MED ONE Naloxone HCl 0.1 mg 06/24/19 06:31 06/24/19 06:34 Narcan 0.4 Mg/Ml IV 06/24/19 06:32 0.1 mg STAT ONE Administration Naloxone HCl Confirm 06/24/19 06:33 Narcan 0.4 Mg/Ml Administered 06/24/19 06:34 Dose 0.4 mg .ROUTE .STK-MED ONE Orphenadrine Citrate 60 mg 06/24/19 06:03 06/24/19 06:09 Norflex 60 Mg/2 Ml IM 06/24/19 06:04 60 mg STAT ONE Administration Orphenadrine Citrate Confirm 06/24/19 06:08 Norflex 60 Mg/2 Ml Administered 06/24/19 06:09 Dose 60 mg .ROUTE .STK-MED ONE - Progress Progress: improved, re-examined Progress Note: 06/24/19 06:33 pt had previously required 2 mg dilaudid , but did not tolerate the 1 mg dose and had some decreased bp requiring bolus and narcan ; 06/24/19 06:40 bp recovered with IVF and mini dose narcan' 06/24/19 06:49 discussed with pt , son , and Dr. Vieyra and had best place on obs for pain control until plan for pain management can by arranged today later Discussed with : Machelle Counseled pt/family regarding: diagnosis, need for follow-up - Departure Departure Disposition: Observation Clinical Impression: intractable pain/med reaction Condition: Good Critical Care Time: Yes Critical Care Time(excluding separately billable procedures): Critical 30-74 mins Referrals: ROWENA VIEYRA MD [Primary Care Provider] -
[2019-06-24] MEDS ORDERED: Norflex 60 MG/2 ML ONE (06:08)
[2019-06-24] MEDS ORDERED: Hydromorphone 1 mg/ml Ampule ONE (06:08)
[2019-06-24] MEDS: Sodium Chloride 0.9% 1000 ML 1,000 ML IV SCH ×2 (06:09→10:31)
[2019-06-24] MEDS ORDERED: Sodium Chloride 0.9% 1000 ML 1,000 ML IV STA (06:25)
[2019-06-24] MEDS ORDERED: Narcan 0.4 MG/ML IV ONE (06:31)
[2019-06-24] MEDS ORDERED: Narcan 0.4 MG/ML ONE (06:33)
[2019-06-24] MEDS ORDERED: DILAUDID 2 MG INJECTION IV PRN (06:52)
[2019-06-24] MEDS ORDERED: Zofran 4 MG/2 ML VIAL IV PRN (06:52)
[2019-06-24] MEDS ORDERED: NovoLIN R SQ PRN (06:52)
[2019-06-24] MEDS ORDERED: Sodium Chloride 0.9% 1000 ML 1,000 ML IV SCH (07:00)
[2019-06-24] MEDS: solu-MEDROL 125 MG IV SCH ×4 (08:03→23:42)
[2019-06-24] MEDS ORDERED: Ativan 0.5 MG PO ONE (08:45)
--- NOTE | 2019-06-24 08:51 | PCM.HP ---
History of Present Illness - Chief Complaint Chief Complaint: intractable pain /medication reaction History of Present Illness: is a 83 year old male with low back pain, was in the ER yesterday for severe low back pain, went home and took norco and fell getting in his chair , has been unsteady on pain medication. pain has been for the last week or so in low back and left hip region, hx of microdiscectomy with Dr Rogel in the past. no bowel or bladder incontinence, he is unsteady but denies focal weakness. - Review of Systems Constitutional: No Fever, No Chills Abdominal/Gastrointestinal: No Abdominal Pain, No Nausea, No Vomiting, No Diarrhea Genitourinary Symptoms: No Dysuria Musculoskeletal: Back Pain Skin: No Rash All Other Systems: Reviewed and Negative Medications & Allergies Home Medications: Home Medication List Tamsulosin HCl 0.4 mg [Flomax 0.4 MG] 0.4 mg PO BID 04/24/14 [History Confirmed 06/24/19] Atorvastatin Calcium [Lipitor 20MG Tablet] 20 mg PO HS 01/04/19 [History Confirmed 06/24/19] Clopidogrel Bisulfate [Clopidogrel] 75 mg PO DAILY 01/04/19 [History Confirmed 06/24/19] Glipizide/Metformin HCl [Glipizide-Metformin 5-500 mg] 1 each PO TID 01/04/19 [ History Confirmed 06/24/19] Lisinopril 20 mg [Zestril 20 MG] 20 mg PO DAILY 01/04/19 [History Confirmed 06/24/19] tadalafiL [Tadalafil] 5 mg PO DAILY PRN PRN 01/04/19 [History Confirmed 06/24/19 ] Aspirin EC 81 mg [Ecotrin 81 mg] 81 mg PO DAILY 06/03/19 [History Confirmed 06/24/19] Finasteride 5 mg PO HS 06/04/19 [History Confirmed 06/24/19] Docusate Sodium 100 mg [Colace 100 MG] 100 mg PO BIDPRN PRN 06/23/19 [ History Confirmed 06/24/19] Hydrocodone/Acetaminophen [Hydrocodone-Acetamin 5-325 mg] 1 tab PO QID PRN 06/23 [History Confirmed 06/24/19] Cholecalciferol (Vitamin D3) [Vitamin D3] 1,000 unit PO DAILY 06/24/19 [History Confirmed 06/24/19] Multivitamin [Multiple Vitamins] 1 each PO DAILY 06/24/19 [History Confirmed ] Allergies/Adverse Reactions: Allergies Allergy/AdvReac Type Severity Reaction Status Date / Time No Known Drug Allergies Allergy Verified 06/24/19 08:01 - Past Medical History Past Medical History: Yes Neurological History: No Pertinent History ENT History: No Pertinent History Cardiac History: Coronary Artery Disease, High Cholesterol, Hypertension Respiratory History: No Pertinent History Endocrine Medical History: Diabetes Type II Musculoskelatal History: Arthritis GI Medical History: No Pertinent History History: No Pertinent History Pyscho-Social History: No Pertinent History Male Reproductive Disorders: Prostate Problems Comment: cardiac stents x 5 - Past Surgical History Past Surgical History: Yes Neuro Surgical History: No Pertinent History Cardiac History: Cardiac Catheterization, Cardiac Stent Respiratory Surgery: No Pertinent History GI Surgical History: Appendectomy Genitourinary Surgical Hx: No Pertinent History Musculskeletal Surgical Hx: Other Male Surgical History: No Pertinent History Other Surgical History: achilles tendon, back surgery - Social History Smoking Status: Never smoker Exposure to second hand smoke: No Alcohol: None Drug Use: none - Physical Exam Vital Signs: Vital Signs - 24 hr Temp Pulse Resp BP Pulse Ox 06/24/19 07:20 70 16 117/71 06/24/19 07:06 87 97/58 96 06/24/19 07:00 96 06/24/19 06:52 96 06/24/19 06:42 90 105/57 94 L 06/24/19 05:38 97.3 F 99 H 18 105/62 96 Oxygen-Last 24 hours O2 Percentage 2 Liters = 28% General Appearance: no apparent distress Neurologic Exam: alert, oriented x 3, cooperative Respiratory Exam: normal breath sounds, lungs clear, No respiratory distress Cardiovascular Exam: regular rate/rhythm, normal heart sounds, normal peripheral pulses Gastrointestinal/Abdomen Exam: soft, normal bowel sounds, No tenderness, No mass Back Exam: normal inspection, normal range of motion, No vertebral tenderness, No muscle spasm, No point tenderness Skin Exam: normal color, warm, dry, No rash Results - Radiology Impressions Radiology Exams & Impressions: Radiology Procedures Category Date Time Status MRI L-SPINE WITHOUT CONTRAST [MRI] Routine Exams 06/24/19 08:45 Ordered Assessment/Plan (1) Back pain Current Visit: No Status: Acute Assessment & Plan: mri lumbar spine to r/o surgical process, norco and will consult PT Code(s): M54.9 - DORSALGIA, UNSPECIFIED (2) Weakness Current Visit: Yes Status: Acute Code(s): R53.1 - WEAKNESS (3) CAD (coronary artery disease) Current Visit: No Status: Acute Assessment & Plan: hold aspirin and plavix at this time in case of possible intervention/TIMMY etc Code(s): I25.10 - ATHSCL HEART DISEASE OF [place] CORONARY ARTERY W/O ANG PCTRS
[2019-06-24] MEDS ORDERED: Colace 100 MG PO PRN (09:33)
[2019-06-24] MEDS ORDERED: NORCO 5/325 MG PO PRN (09:33)
[2019-06-24 09:41] LABS: Absolute Neutrophil Ct (ANC) 6.55 (1.4-6.9); BASOPHIL % 0.4 % (0.0-0.4); Basophil (Absolute #) 0.03 (0-0.4); Eosinophil % 0.9 % (0.00-5.0); Eosinophil (Absolute #) 0.07 (0-0.5); Hematocrit 40.5 % (42-50); Hemoglobin 13.5 gm/dl (12.5-18.0); Lymphocyte (Absolute #) 1.23 (1.0-4.6); Mean Cell Volume 96.7 fl (78-100); Mean Corpuscular Hemoglobin 32.2 pg (26-32); Mean Corpuscular Hgb Concent. 33.3 g/dl (32-36); Mean Platelet Volume 9.6 fl (7.5-11.0); Monocytes % 3.7 % (0.0-12.0); Platelet Count 178 K/mm3 (150-450); Red Blood Count 4.19 M/mm3 (4.1-5.6); Red Cell Distribution Width 13.8 % (11.5-14.0); White Blood Count 8.2 K/mm3 (4.0-10.5)
[2019-06-24] MEDS: Flomax 0.4 MG PO SCH ×2 (10:04→21:59)
[2019-06-24 10:13] LABS: ANION GAP 11.3 MEQ/L (5-15); BLOOD UREA NITROGEN 25 mg/dL (9-20); CHLORIDE 100 mmol/L (98-107); Carbon Dioxide 28 mmol/L (22-30); Creatinine 1 0.93 mg/dL (0.66-1.25); Glucose 193 mg/dL (74-106); Potassium 4.6 mmol/L (3.5-5.1); SODIUM 135 mmol/L (137-145)
[2019-06-24 11:00] LABS: Appearance SLIGHTLY CLOUDY (CLEAR); Bacteria RARE /HPF (NEGATIVE); Bilirubin NEGATIVE (NEGATIVE); Blood NEGATIVE Ery/ul (0-5); Glucose NEGATIVE (NEGATIVE); Ketones NEGATIVE (NEGATIVE); Leukocyte Esterase NEGATIVE (NEGATIVE); Mucus SLIGHT /HPF (NEGATIVE); Nitrite NEGATIVE (NEGATIVE); Protein,Urine Dip NEGATIVE (Negative); RBC 0-2 /HPF (0-2); Urobilinogen NEGATIVE mg/dL (0-1)
[2019-06-24] MEDS: NovoLOG Insulin SQ PRN ×3 (12:11→22:00)
--- NOTE | 2019-06-24 14:17 | XRAY ---
Indication: Low back pain radiating left leg. No known injury. Sagittal and axial MRI lumbar spine performed without contrast using T1 and T2 weighted sequences. Comparison: None No prior lumbar exams for counting purposes. 5 lumbar segments will be assumed. Sagittal MRI images demonstrates normal lumbar lordosis with 7-8 mm anterolisthesis of L4 on L5. There is multilevel degenerative disc desiccation signal with L2-S1 disc space narrowing greatest at the L4-L5 level. L4-L5 level and lesser degree L2-L3 level demonstrates opposing endplate degenerative discogenic signal changes, Modic type II. Tiny T11/L2-L4 Schmorl nodes and tiny T12 vertebral hemangioma. No acute fracture, suspicious bony lesions, or abnormal bone marrow signal. Conus medullaris terminates at the thoracolumbar junction. Sagittal images through the T12-L2 levels are unremarkable. Axial images at the L2-L3-L4 levels demonstrates minimal annular disc bulge minimally effacing the thecal sac and producing bilateral foraminal narrowing. No disc herniation or spinal canal stenosis. Mild bilateral degenerative facet hypertrophy. At the L4-L5 level, there is bilateral foraminal stenosis right greater than left due to combination of broad-based disc bulge and grade 1-2 anterolisthesis. Mild impingement of the exiting L4 nerve roots bilaterally. Mean AP thecal sac diameter is 7 mm. Moderate bilateral degenerative facet hypertrophy. At the L5-S1 level, there is no disc herniation, spinal canal, or foraminal stenosis. Mild bilateral degenerative facet hypertrophy. Impression: 1. Multilevel degenerative disc disease detailed level by level. Greatest extent at L4-L5 where there is spinal canal narrowing and bilateral foraminal stenosis due to combination of grade 1-2 anterolisthesis, broad-based disc bulge, and degenerative facet hypertrophy. 2. Incidental tiny T12 vertebral hemangioma and tiny multilevel Schmorl nodes.
[2019-06-24] MEDS ORDERED: ZOCOR 20MG PO SCH (22:00)
[2019-06-24] MEDS ORDERED: Proscar 5 MG PO SCH (22:00)
[2019-06-24] MEDS ORDERED: NON-FORMULARY ITEM (Atorvastatin Calcium 20 MG) PO SCH (22:00)
[2019-06-25] MEDS: Sodium Chloride 0.9% 1000 ML 1,000 ML IV SCH (01:55)
[2019-06-25 04:50] LABS: Absolute Neutrophil Ct (ANC) 10.24 (1.4-6.9); BASOPHIL % 0.1 % (0.0-0.4); Basophil (Absolute #) 0.01 (0-0.4); Eosinophil (Absolute #) 0 (0-0.5); Hematocrit 37.1 % (42-50); Hemoglobin 12.7 gm/dl (12.5-18.0); Lymphocyte (Absolute #) 1.16 (1.0-4.6); Lymphocytes % 9.9 % (24.0-44.0); Mean Cell Volume 94.6 fl (78-100); Mean Corpuscular Hemoglobin 32.4 pg (26-32); Mean Corpuscular Hgb Concent. 34.2 g/dl (32-36); Mean Platelet Volume 9.2 fl (7.5-11.0); Monocyte (Absolute #) 0.26 (0.0-1.3); Monocytes % 2.2 % (0.0-12.0); Neutrophil % 87.8 % (36.0-66.0); Platelet Count 205 K/mm3 (150-450); Red Blood Count 3.92 M/mm3 (4.1-5.6); Red Cell Distribution Width 13.1 % (11.5-14.0); White Blood Count 11.7 K/mm3 (4.0-10.5)
[2019-06-25] MEDS: solu-MEDROL 125 MG IV SCH (06:10)
[2019-06-25 08:00] VITALS: BP 136/65
[2019-06-25] MEDS: NovoLOG Insulin SQ PRN (08:28)
[2019-06-25] MEDS: Flomax 0.4 MG PO SCH (08:28)
--- NOTE | 2019-06-25 09:56 | PCM.DS ---
Discharge Summary Date of Admission: 06/24/19 07:23 Admitting Physician: ROWENA VIEYRA Primary Care Provider: ROWENA VIEYRA Allergies Allergies No Known Drug Allergies Allergy (Verified 06/24/19 08:01) Hospital Summary - Hospital Course Hospital Course: patient was admitted with intractable low back pain, he had been to the ER twice just prior to arrival. he was unsteady, his pain has improved dramatically with IV steroids and pain meds. he is steady on his feet, has had a prior lumbar disc surgery. MRI was done and shows stenosis with some disc pathology. - Vitals & Intake/Output Vital Signs: Vital Signs Temperature 98.2 F 06/25/19 07:59 Pulse Rate 80 06/25/19 07:59 Respiratory Rate 18 06/25/19 07:59 Blood Pressure 136/65 06/25/19 07:59 O2 Sat by Pulse Oximetry 96 06/25/19 07:59 Oxygen-Last Documented O2 Percentage 2 Liters = 28% Intake & Output: Intake & Output 06/22/19 06/23/19 06/24/19 06/25/19 11:59 11:59 11:59 11:59 Intake Total 2798 Output Total 200 1525 Balance -200 1273 Weight 92.6 kg 92.4 kg - Lab Result Diagrams: 06/25/19 04:22 06/24/19 09:30 Lab Results-Last 24 Hrs: Accuchecks Date 06/24/19 Date 06/24/19 Date 06/24/19 Time 22:00 Time 16:30 Time 12:57 Accucheck Value: 247 Accucheck Value: 349 Accucheck Value: 265 Accucheck Value: 205 Lab Results-Last 24 Hours 06/24/19 06/24/19 06/25/19 Range/Units 09:30 10:30 04:22 WBC 11.7 H (4.0-10.5) K/mm3 RBC 3.92 L (4.1-5.6) M/mm3 Hgb 12.7 (12.5-18.0) gm/dl Hct 37.1 L (42-50) % MCV 94.6 (78-100) fl MCH 32.4 H (26-32) pg MCHC 34.2 (32-36) g/dl RDW 13.1 (11.5-14.0) % Plt Count 205 (150-450) K/mm3 MPV 9.2 (7.5-11.0) fl Gran % 87.8 H (36.0-66.0) % Eos # (Auto) 0 (0-0.5) Absolute Lymphs (auto) 1.16 (1.0-4.6) Absolute Monos (auto) 0.26 (0.0-1.3) Lymphocytes % 9.9 L (24.0-44.0) % Monocytes % 2.2 (0.0-12.0) % Eosinophils % 0.0 (0.00-5.0) % Basophils % 0.1 (0.0-0.4) % Absolute Granulocytes 10.24 H (1.4-6.9) Basophils # 0.01 (0-0.4) Sodium 135 L (137-145) mmol/L Potassium 4.6 (3.5-5.1) mmol/L Chloride 100 (98-107) mmol/L Carbon Dioxide 28 (22-30) mmol/L Anion Gap 11.3 (5-15) MEQ/L BUN 25 H (9-20) mg/dL Creatinine 0.93 (0.66-1.25) mg/dL Estimated GFR > 60.0 ML/MIN Glucose 193 H (74-106) mg/dL Calcium 9.0 (8.4-10.2) mg/dL Urine Color YELLOW (YELLOW) Urine Appearance SLIGHTLY CLOUDY (CLEAR) Urine pH 5.0 (5-6) Ur Specific [place] 1.020 (1.005-1.025) Urine Protein NEGATIVE (Negative) Urine Ketones NEGATIVE (NEGATIVE) Urine Blood NEGATIVE (0-5) Bronson/ul Urine Nitrite NEGATIVE (NEGATIVE) Urine Bilirubin NEGATIVE (NEGATIVE) Urine Urobilinogen NEGATIVE (0-1) mg/dL Ur Leukocyte Esterase NEGATIVE (NEGATIVE) Urine WBC (Auto) 3-5 (0-5) /HPF Urine RBC (Auto) 0-2 (0-2) /HPF U Hyaline Cast (Auto) 11-25 (0-2) /LPF U Epithel Cells (Auto) NONE (FEW) /HPF Urine Bacteria (Auto) RARE (NEGATIVE) /HPF Urine Mucus (Auto) SLIGHT (NEGATIVE) /HPF Urine Culture Reflexed NO (NO) Urine Glucose NEGATIVE (NEGATIVE) mg/dL Micro Results-Entire Visit: Accuchecks Date 06/24/19 Date 06/24/19 Date 06/24/19 Time 22:00 Time 16:30 Time 12:57 Accucheck Value: 247 Accucheck Value: 349 Accucheck Value: 265 Accucheck Value: 205 - Radiology Exams Ordered Rad Exams-Entire Visit: Radiology Procedures Category Date Time Status MRI L-SPINE WITHOUT CONTRAST [MRI] Routine Exams 06/24/19 08:45 Completed - Procedures and Test Procedures and Tests throughout Hospitalization: Therapy Orders & Screens 06/24/19 09:00 OT Screen per Nursing Assess ONCE Comment: Protocol Order Physician Instructions: Greater than 3 points order OT Admission Screening Reason For Exam: Triggered on Admission Diagnosis: intractable pain /medication reaction Open Wound/Cellutlitis/Pressure Ulcers: No Acute Fx/ORIF/Change in wt bearing status: No Severe MUSCULOSKELETAL pain: Yes ADL Dysfunction: Yes Acute CVA w/Hemiparesis/Hemiplegia: No Decreased Functional Mobility/Strength: Yes Sprain/Strain: No Acute Post-op Mobility Dysfunction: No Total Points: 9 PT Screen per Nursing Assess ONCE Comment: Protocol Order Physician Instructions: Greater than 3 points order PT Admission Screenin Reason For Exam: Triggered on Admission Diagnosis: intractable pain /medication reaction Open Wound/Cellutlitis/Pressure Ulcers: No Acute Fx/ORIF/Change in wt bearing status: No Severe MUSCULOSKELETAL pain: Yes ADL Dysfunction: Yes Acute CVA w/Hemiparesis/Hemiplegia: No Decreased Functional Mobility/Strength: Yes Sprain/Strain: No Acute Post-op Mobility Dysfunction: No Total Points: 9 06/24/19 10:02 PT Eval & Treat (MD Order) ROUTINE Reason for Eval:: low back pain, unsteady gait Diagnosis: intractable pain /medication reaction 06/24/19 20:25 Oxygen Nasal Cannula 2 lpm Comment: Diagnosis: intractable pain /medication reaction Discharge Exam General Appearance: no apparent distress, alert Neurologic Exam: alert, oriented x 3, cooperative, normal mood/affect, nml cerebellar function, sensation nml, No motor deficits Respiratory Exam: normal breath sounds Cardiovascular Exam: regular rate/rhythm, normal heart sounds Gastrointestinal/Abdomen Exam: soft, No tenderness, No mass Back Exam: normal inspection, normal range of motion Final Diagnosis/Problem List - Final Discharge Diagnosis/Problem (1) Lumbar spinal stenosis Current Visit: Yes Status: Acute Assessment & Plan: will refer to pain management at [facility], patient has recent stent placement with cardiology so unless emergent intervention required would continue aspirin plavix since he has improved with steroids and analgesics, will hold lisinopril as he was hypotensive on admission. Code(s): M48.061 - SPINAL STENOSIS, LUMBAR REGION WITHOUT NEUROGENIC AMY (2) Back pain Current Visit: No Status: Acute Code(s): M54.9 - DORSALGIA, UNSPECIFIED (3) Weakness Current Visit: Yes Status: Acute Code(s): R53.1 - WEAKNESS (4) CAD (coronary artery disease) Current Visit: No Status: Acute Code(s): I25.10 - ATHSCL HEART DISEASE OF [place] CORONARY ARTERY W/O ANG PCTRS - Discharge Disposition: Home, Self-Care Condition: Good Prescriptions: New Prednisone 10 mg [Deltasone 10 mg] 10 mg PO UD #18 tablet Continue Tamsulosin HCl 0.4 mg [Flomax 0.4 MG] 0.4 mg PO BID Glipizide/Metformin HCl [Glipizide-Metformin 5-500 mg] 1 each PO TID Atorvastatin Calcium [Lipitor 20MG Tablet] 20 mg PO HS Clopidogrel Bisulfate [Clopidogrel] 75 mg PO DAILY tadalafiL [Tadalafil] 5 mg PO DAILY PRN PRN PRN Reason: ED Aspirin EC 81 mg [Ecotrin 81 mg] 81 mg PO DAILY Finasteride 5 mg PO HS Docusate Sodium 100 mg [Colace 100 MG] 100 mg PO BIDPRN PRN PRN Reason: Constipation Cholecalciferol (Vitamin D3) [Vitamin D3] 1,000 unit PO DAILY Multivitamin [Multiple Vitamins] 1 each PO DAILY Hydrocodone/Acetaminophen [Hydrocodone-Acetamin 5-325 mg] 1 tab PO QID PRN # 28 tablet MDD 4 PRN Reason: Pain Discontinued Lisinopril 20 mg [Zestril 20 MG] 20 mg PO DAILY Follow up with: JODIE MASCORRO MD [CONSULTING PHYSICIAN] - 1 Day
[2019-06-25 11:17] VITALS: PULSE 111; O2SAT 93
== END 2019-06-25 11:47 | disposition home or self-care (01) ==
LOC: ED 05:36 → MED SURG 07:23
PROVIDERS: ADMIT Family Medicine; ATTEND Family Medicine
DX: M48.061 Spinal stenosis, lumbar region without neurogenic claudication (principal); R53.1 Weakness; I25.10 Atherosclerotic heart disease of native coronary artery without angina pectoris; E11.9 Type 2 diabetes mellitus without complications; I10 Essential (primary) hypertension; E78.00 Pure hypercholesterolemia, unspecified; Z79.899 Other long term (current) drug therapy
CPT/HCPCS: 36415; 72148; 80048; 81001; 82962; 85025; 93268; 94762; 96360; 96372; 96374; 96375; 99291; G0378; 36000; 99285; J1170; J2310; J2360; J2930; A9270-GY

== ENCOUNTER 2020-05-10 12:58 | Emergency (ER) | payer MEDICARE ==
--- NOTE | 2020-05-10 13:39 | ERPHSYRPT ---
- History of Present Illness Time Seen by Provider: 05/10/20 13:20 Source: patient Exam Limitations: no limitations Patient Subjective Stated Complaint: Pt states that his legs hurt and are weak and he has had this in the past and it ended up being a UTI, pt's daughter is covid positive and he has been around her Triage Nursing Assessment: Pt was brought to the ER by his , tachycardic, hypertensive, rates leg pain as 8/10, reports that it is hard to get up and walk, pulses normal, skin n/w/d, doesn't appear to be in any distress Physician History: 84 years old male with a history of hypertension, hyperlipidemia, coronary artery disease status post stenting, BPH presented in the ER with chief complaint of bilateral lower extremity pain and weakness with progressive worsening for almost 1 week. Patient reports having similar symptoms in the past with UTI. He has increased frequency and dribbling but denies any dysuria. Denies any abdominal pain nausea vomiting or diarrhea. Denies any chest pain palpitations or shortness of breath. Complaining of generalized weakness and fatigue. Patient's daughter is COVID-19 positive and he has been around her. Did not spike any fever or chills. Timing/Duration: week(s) (1), gradual onset, worse Severity: moderate Modifying Factors: Improves With: immobilization, rest. Worsens With: movement Associated Symptoms: denies symptoms Allergies/Adverse Reactions: No Known Drug Allergies Allergy (Verified 05/10/20 13:25) Home Medications: Tamsulosin HCl 0.4 mg [Flomax 0.4 MG] 0.4 mg PO BID 04/24/14 [History] Atorvastatin Calcium [Lipitor 20MG Tablet] 20 mg PO HS 01/04/19 [History] Clopidogrel Bisulfate [Clopidogrel] 75 mg PO DAILY 01/04/19 [History] Glipizide/Metformin HCl [Glipizide-Metformin 5-500 mg] 1 each PO TID 01/04/19 [History] tadalafiL [Tadalafil] 5 mg PO DAILY PRN PRN 01/04/19 [History] Aspirin EC 81 mg [Ecotrin 81 mg] 81 mg PO DAILY 06/03/19 [History] Cholecalciferol (Vitamin D3) [Vitamin D3] 1,000 unit PO DAILY 06/24/19 [History] Multivitamin [Multiple Vitamins] 1 each PO DAILY 06/24/19 [History] Lisinopril 20 mg [Zestril 20 MG] 20 mg PO DAILY 05/10/20 [History] Hx Tetanus, Diphtheria Vaccination/Date Given: No Hx Influenza Vaccination/Date Given: Yes Hx Pneumococcal Vaccination/Date Given: Yes Travel Risk - International Travel Have you traveled outside of the country in past 3 weeks: No - Coronavirus Screening Are you exhibiting any of the following symptoms?: No Close contact with a COVID-19 positive Pt in past 14-21 Days: Yes - Review of Systems Constitutional: Fatigue, Weakness Eyes: No Symptoms Ears, Nose, & Throat: No Symptoms Respiratory: No Symptoms Cardiac: No Symptoms Abdominal/Gastrointestinal: No Symptoms Genitourinary Symptoms: Frequency Musculoskeletal: Myalgias, Other Skin: No Symptoms Neurological: No Symptoms Psychological: No Symptoms Endocrine: No Symptoms Hematologic/Lymphatic: No Symptoms Immunological/Allergic: No Symptoms - Past Medical History Pertinent Past Medical History: Yes Neurological History: No Pertinent History ENT History: No Pertinent History Cardiac History: No Pertinent History Respiratory History: No Pertinent History Endocrine Medical History: Diabetes Type II Musculoskeletal History: No Pertinent History GI Medical History: No Pertinent History History: No Pertinent History Psycho-Social History: No Pertinent History Male Reproductive Disorders: Prostate Problems Other Medical History: back surgery (discectomy) - Past Surgical History Past Surgical History: Yes Neuro Surgical History: No Pertinent History Cardiac: Cardiac Catheterization, Cardiac Stent Respiratory: No Pertinent History Gastrointestinal: Appendectomy Genitourinary: No Pertinent History Musculoskeletal: Other Male Surgical History: No Pertinent History Other Surgical History: achilles tendon, back surgery - Social History Smoking Status: Never smoker Exposure to second hand smoke: No Drug Use: none Patient Lives Alone: No - Nursing Vital Signs Nursing Vital Signs: Initial Vital Signs Temperature 98.2 F 05/10/20 13:05 Pulse Rate 108 H 05/10/20 13:05 Blood Pressure 145/98 05/10/20 13:05 O2 Sat by Pulse Oximetry 96 05/10/20 13:05 Pain Scale Pain Intensity 8 - Physical Exam General Appearance: no apparent distress, alert Eye Exam: eyes nml inspection Ears, Nose, Throat Exam: normal ENT inspection, pharynx normal Neck Exam: normal inspection, non-tender, supple, full range of motion Respiratory Exam: normal breath sounds, lungs clear Cardiovascular Exam: normal heart sounds, tachycardia Gastrointestinal/Abdomen Exam: soft, normal bowel sounds, No tenderness Back Exam: normal inspection, normal range of motion, CVA tenderness Extremity Exam: normal inspection, normal range of motion, pelvis stable, No faby's sign, No joint swelling, No pedal edema, No swelling Neurologic Exam: alert, oriented x 3, cooperative, 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, normal mood/affect Skin Exam: normal color SpO2 Interpretation: normal SpO2: 96 Ordered Tests: Active Orders 24 hr Category Date Time Status IV Insertion STAT Care 05/10/20 13:26 Active CBC W DIFF Stat Lab 05/10/20 14:01 Completed CMP Stat Lab 05/10/20 14:01 Completed INFLUENZA A+B MARCO ANTONIO Stat Lab 05/10/20 14:01 Received Lactic Acid Stat Lab 05/10/20 13:27 Completed MAG [MAGNESIUM] Stat Lab 05/10/20 14:01 Received UA W/RFX UR CULTURE Stat Lab 05/10/20 13:32 Completed Medication Summary Discontinued Medications Generic Name Dose Route Start Last Admin Trade Name Speedyq PRN Reason Stop Dose Admin Ceftriaxone Sodium/Dextrose 1 g in 50 mls @ 100 mls/hr 05/10/20 14:57 05/10/20 15:06 Rocephin 1 Gm-D5w 50 Ml Bag IV 05/10/20 15:26 100 mls/hr STAT STA 100 mls/hr Administration Ceftriaxone Sodium/Dextrose Confirm 05/10/20 15:04 Rocephin 1 Gm-D5w 50 Ml Bag Administered 05/10/20 15:05 Dose 1 g in 50 mls @ IV .STK-MED ONE Lab/Rad Data: Laboratory Result Diagrams 05/10/20 14:01 05/10/20 14:01 Laboratory Results 05/10/20 05/10/20 05/10/20 Range/Units 14:01 14:01 13:32 WBC 5.9 (4.0-10.5) K/mm3 RBC 4.49 (4.1-5.6) M/mm3 Hgb 14.3 (12.5-18.0) gm/dl Hct 43.5 (42-50) % MCV 96.9 (78-100) fl MCH 31.8 (26-32) pg MCHC 32.9 (32-36) g/dl RDW 14.3 H (11.5-14.0) % Plt Count 169 (150-450) K/mm3 MPV 9.2 (7.5-11.0) fl Gran % 54.9 (36.0-66.0) % Eos # (Auto) 0.02 (0-0.5) Absolute Lymphs (auto) 1.91 (1.0-4.6) Absolute Monos (auto) 0.70 (0.0-1.3) Lymphocytes % 32.6 (24.0-44.0) % Monocytes % 11.9 (0.0-12.0) % Eosinophils % 0.3 (0.00-5.0) % Basophils % 0.3 (0.0-0.4) % Absolute Granulocytes 3.21 (1.4-6.9) Basophils # 0.02 (0-0.4) Sodium 132 L (137-145) mmol/L Potassium 4.2 (3.5-5.1) mmol/L Chloride 98 (98-107) mmol/L Carbon Dioxide 26 (22-30) mmol/L Anion Gap 11.3 (5-15) MEQ/L BUN 22 H (9-20) mg/dL Creatinine 0.96 (0.66-1.25) mg/dL Estimated GFR > 60.0 ML/MIN Glucose 267 H (74-106) mg/dL Lactic Acid (0.4-2.0) Calcium 9.2 (8.4-10.2) mg/dL Total Bilirubin 0.50 (0.2-1.3) mg/dL AST 31 (17-59) U/L ALT 20 (0-50) U/L Alkaline Phosphatase 70 (38-126) U/L Serum Total Protein 6.9 (6.3-8.2) g/dL Albumin 4.0 (3.5-5.0) g/dL Urine Color YELLOW (YELLOW) Urine Appearance CLEAR (CLEAR) Urine pH 6.0 (5-6) Ur Specific [place] 1.024 (1.005-1.025) Urine Protein 30 (Negative) Urine Ketones SMALL (NEGATIVE) Urine Blood NEGATIVE (0-5) Bronson/ul Urine Nitrite NEGATIVE (NEGATIVE) Urine Bilirubin NEGATIVE (NEGATIVE) Urine Urobilinogen NEGATIVE (0-1) mg/dL Ur Leukocyte Esterase TRACE (NEGATIVE) Urine WBC (Auto) 11-15 (0-5) /HPF Urine RBC (Auto) 3-5 (0-2) /HPF U Epithel Cells (Auto) RARE (FEW) /HPF Urine Bacteria (Auto) RARE (NEGATIVE) /HPF Urine Mucus (Auto) SLIGHT (NEGATIVE) /HPF Urine Culture Reflexed NO (NO) Urine Glucose NEGATIVE (NEGATIVE) mg/dL 05/10/20 Range/Units 13:27 WBC (4.0-10.5) K/mm3 RBC (4.1-5.6) M/mm3 Hgb (12.5-18.0) gm/dl Hct (42-50) % MCV (78-100) fl MCH (26-32) pg MCHC (32-36) g/dl RDW (11.5-14.0) % Plt Count (150-450) K/mm3 MPV (7.5-11.0) fl Gran % (36.0-66.0) % Eos # (Auto) (0-0.5) Absolute Lymphs (auto) (1.0-4.6) Absolute Monos (auto) (0.0-1.3) Lymphocytes % (24.0-44.0) % Monocytes % (0.0-12.0) % Eosinophils % (0.00-5.0) % Basophils % (0.0-0.4) % Absolute Granulocytes (1.4-6.9) Basophils # (0-0.4) Sodium (137-145) mmol/L Potassium (3.5-5.1) mmol/L Chloride (98-107) mmol/L Carbon Dioxide (22-30) mmol/L Anion Gap (5-15) MEQ/L BUN (9-20) mg/dL Creatinine (0.66-1.25) mg/dL Estimated GFR ML/MIN Glucose (74-106) mg/dL Lactic Acid 2.0 (0.4-2.0) Calcium (8.4-10.2) mg/dL Total Bilirubin (0.2-1.3) mg/dL AST (17-59) U/L ALT (0-50) U/L Alkaline Phosphatase (38-126) U/L Serum Total Protein (6.3-8.2) g/dL Albumin (3.5-5.0) g/dL Urine Color (YELLOW) Urine Appearance (CLEAR) Urine pH (5-6) Ur Specific [place] (1.005-1.025) Urine Protein (Negative) Urine Ketones (NEGATIVE) Urine Blood (0-5) Bronson/ul Urine Nitrite (NEGATIVE) Urine Bilirubin (NEGATIVE) Urine Urobilinogen (0-1) mg/dL Ur Leukocyte Esterase (NEGATIVE) Urine WBC (Auto) (0-5) /HPF Urine RBC (Auto) (0-2) /HPF U Epithel Cells (Auto) (FEW) /HPF Urine Bacteria (Auto) (NEGATIVE) /HPF Urine Mucus (Auto) (NEGATIVE) /HPF Urine Culture Reflexed (NO) Urine Glucose (NEGATIVE) mg/dL - Progress Progress: unchanged, re-examined Progress Note: 05/10/20 15:30 84 years old is evaluated for generalized body aches, leg pains. Offered pain medication which he refused. He has a normal white count, grossly unremarkable chemistries. Does have UTI and given a dose of Rocephin. According to patient his symptoms are similar to previous when he had a UTI. He has bilateral leg soreness but no definite of tenderness, swelling or erythema noticed. I believe his symptoms are secondary to UTI. I have also obtain COVID-19 testing on him as patient has a positive exposure with daughter. Patient is not in any distress. No difficulty breathing, do not think needs any imaging. No a bdominal pain. Discussed signs symptoms of worsening needing return to ER which he seems understanding. Stable for discharge. Counseled pt/family regarding: lab results, diagnosis, need for follow-up - Departure Departure Disposition: Home Clinical Impression: Acute UTI Condition: Stable Critical Care Time: No Referrals: ROWENA VIEYRA MD [Primary Care Provider] - Follow Up with PCP/3 days Instructions: Urinary Tract Infection, Adult (DC) Additional Instructions: Take Tylenol as needed. Plenty of fluids. Follow-up with your primary care physician for reevaluation. Use droplet/contact precautions until your COVID-19 testing is back. Continue with antibiotics. Return to ER for any worsening. Prescriptions: Cefdinir 300 mg PO BID 7 Days #14 capsule
[2020-05-10 13:55] LABS: ALKALINE PHOSPHATASE 70 U/L (38-126); ANION GAP 11.3 MEQ/L (5-15); Absolute Neutrophil Ct (ANC) 3.21 (1.4-6.9); BASOPHIL % 0.3 % (0.0-0.4); BLOOD UREA NITROGEN 22 mg/dL (9-20); Basophil (Absolute #) 0.02 (0-0.4); CHLORIDE 98 mmol/L (98-107); Calcium 9.2 mg/dL (8.4-10.2); Carbon Dioxide 26 mmol/L (22-30); Creatinine 1 0.96 mg/dL (0.66-1.25); EST GLOMERULAR FILTRATION RATE > 60.0 ML/MIN; Eosinophil % 0.3 % (0.00-5.0); Eosinophil (Absolute #) 0.02 (0-0.5); Glucose 267 mg/dL (74-106); Hematocrit 43.5 % (42-50); Hemoglobin 14.3 gm/dl (12.5-18.0); Lymphocyte (Absolute #) 1.91 (1.0-4.6); Lymphocytes % 32.6 % (24.0-44.0); Mean Cell Volume 96.9 fl (78-100); Mean Corpuscular Hemoglobin 31.8 pg (26-32); Mean Corpuscular Hgb Concent. 32.9 g/dl (32-36); Mean Platelet Volume 9.2 fl (7.5-11.0); Monocytes % 11.9 % (0.0-12.0); Neutrophil % 54.9 % (36.0-66.0); Platelet Count 169 K/mm3 (150-450); Potassium 4.2 mmol/L (3.5-5.1); Red Blood Count 4.49 M/mm3 (4.1-5.6); Red Cell Distribution Width 14.3 % (11.5-14.0); SGOT/AST 31 U/L (17-59); SGPT/ALT 20 U/L (0-50); SODIUM 132 mmol/L (137-145); Total Protein 6.9 g/dL (6.3-8.2); White Blood Count 5.9 K/mm3 (4.0-10.5)
[2020-05-10 14:47] LABS: Appearance CLEAR (CLEAR); Bacteria RARE /HPF (NEGATIVE); Bilirubin NEGATIVE (NEGATIVE); Blood NEGATIVE Ery/ul (0-5); Epithelial Cells RARE /HPF (FEW); Glucose NEGATIVE (NEGATIVE); Ketones SMALL (NEGATIVE); Leukocyte Esterase TRACE (NEGATIVE); Mucus SLIGHT /HPF (NEGATIVE); Nitrite NEGATIVE (NEGATIVE); Protein,Urine Dip 30 (Negative); Specific Gravity 1.024 (1.005-1.025); Urobilinogen NEGATIVE mg/dL (0-1)
[2020-05-10] MEDS ORDERED: ROCEPHIN 1 Gm-D5w 50 ml Bag** 1 G/50 ML IVPB IV STA (14:57)
[2020-05-10] MEDS ORDERED: ROCEPHIN 1 Gm-D5w 50 ml Bag** 1 G/50 ML IVPB IV ONE (15:04)
[2020-05-10 15:18] VITALS: BP 143/76; PULSE 84; O2SAT 96
[2020-05-10 15:32] LABS: INFLUENZA A NEGATIVE (NEGATIVE); INFLUENZA B NEGATIVE (NEGATIVE)
== END 2020-05-10 15:38 | disposition home or self-care (01) ==
LOC: ED 12:58
DX: N39.0 Urinary tract infection, site not specified (principal); I10 Essential (primary) hypertension; E78.5 Hyperlipidemia, unspecified; I25.810 Atherosclerosis of coronary artery bypass graft(s) without angina pectoris; Z79.899 Other long term (current) drug therapy; R53.1 Weakness; E11.9 Type 2 diabetes mellitus without complications; Z79.4 Long term (current) use of insulin
CPT/HCPCS: 36000; 36415; 80053; 81001; 83605; 83735; 85025; 87400; 96374; 99284; U0003; J0696

== ENCOUNTER 2020-05-13 21:18 | Emergency (ER) | payer MEDICARE ==
--- NOTE | 2020-05-13 21:19 | ERPHSYRPT ---
- History of Present Illness Time Seen by Provider: 05/13/20 21:19 Source: patient, EMS Exam Limitations: no limitations Physician History: This is an 84-year-old male who is a patient of Dr. Vieyra and was seen in the emergency department on 05/10/2020 and diagnosed with a urinary tract infection. He was given an injection of Rocephin in the emergency department and sent home with the diagnosis of urinary tract infection and given a prescription for cefdinir as an outpatient. Patient is diabetic he has a history of hypertension coronary artery disease and cardiac stent placement. At that time of the last visit, he complained of generalized weakness and fatigue as well as leg pain. Patient called the ambulance service because he was having frequent falls and he does not know why. Patient is COVID-19 positive. He is here in the emergency department because of falls and weakness. Patient specifically says he has no headache he has no chest pain he is not particularly short of breath he just feels weak and he cannot explain the falling episodes today. Patient recalls that he has had this happen at least 2 other occasions in the past and he states that he was septic. Occurred: days ago (Several), other (Patient had fallen today twice) Reason for Fall: unknown Injuries/Pain Location: no injury Loss of Consciousness: no loss of consciousness Severity of Pain-Max: none Severity of Pain-Current: none Associated Symptoms (Fall): denies symptoms Allergies/Adverse Reactions: No Known Drug Allergies Allergy (Verified 05/13/20 21:27) Home Medications: Tamsulosin HCl 0.4 mg [Flomax 0.4 MG] 0.4 mg PO BID 04/24/14 [History] Atorvastatin Calcium [Lipitor 20MG Tablet] 20 mg PO HS 01/04/19 [History] Clopidogrel Bisulfate [Clopidogrel] 75 mg PO DAILY 01/04/19 [History] Glipizide/Metformin HCl [Glipizide-Metformin 5-500 mg] 1 each PO TID 01/04/19 [History] Aspirin EC 81 mg [Ecotrin 81 mg] 81 mg PO DAILY 06/03/19 [History] Cholecalciferol (Vitamin D3) [Vitamin D3] 1,000 unit PO DAILY 06/24/19 [History] Multivitamin [Multiple Vitamins] 1 each PO DAILY 06/24/19 [History] Lisinopril 20 mg [Zestril 20 MG] 20 mg PO DAILY 05/10/20 [History] Hx Tetanus, Diphtheria Vaccination/Date Given: No Hx Influenza Vaccination/Date Given: Yes Hx Pneumococcal Vaccination/Date Given: Yes Travel Risk - International Travel Have you traveled outside of the country in past 3 weeks: No - Coronavirus Screening Are you exhibiting any of the following symptoms?: No Close contact with a COVID-19 positive Pt in past 14-21 Days: No - Review of Systems Constitutional: Weakness Eyes: No Symptoms Ears, Nose, & Throat: No Symptoms Respiratory: No Symptoms Cardiac: No Symptoms Abdominal/Gastrointestinal: No Symptoms Genitourinary Symptoms: No Symptoms Musculoskeletal: Fall Skin: No Symptoms Neurological: No Symptoms Psychological: No Symptoms Endocrine: No Symptoms Hematologic/Lymphatic: No Symptoms Immunological/Allergic: No Symptoms All Other Systems: Reviewed and Negative - Past Medical History Pertinent Past Medical History: Yes Neurological History: No Pertinent History ENT History: No Pertinent History Cardiac History: No Pertinent History Respiratory History: No Pertinent History Endocrine Medical History: Diabetes Type II Musculoskeletal History: No Pertinent History GI Medical History: No Pertinent History History: No Pertinent History Psycho-Social History: No Pertinent History Male Reproductive Disorders: Prostate Problems Other Medical History: back surgery (discectomy) - Past Surgical History Past Surgical History: Yes Neuro Surgical History: No Pertinent History Cardiac: Cardiac Catheterization, Cardiac Stent Respiratory: No Pertinent History Gastrointestinal: Appendectomy Genitourinary: No Pertinent History Musculoskeletal: Other Male Surgical History: No Pertinent History Other Surgical History: achilles tendon, back surgery - Social History Smoking Status: Never smoker Exposure to second hand smoke: No Drug Use: none Patient Lives Alone: No - Nursing Vital Signs Nursing Vital Signs: Initial Vital Signs Temperature 98.6 F 05/13/20 21:18 Pulse Rate 81 05/13/20 21:18 Respiratory Rate 16 05/13/20 21:18 Blood Pressure 141/87 05/13/20 21:18 O2 Sat by Pulse Oximetry 96 05/13/20 21:18 Pain Scale Pain Intensity 0 - Sherley Coma Score Best Eye Response ([place]): (4) open spontaneously Best Verbal Response ([place]): (5) oriented Best Motor Response ([place]): (6) obeys commands [place] Total: 15 - Physical Exam General Appearance: no apparent distress, alert, anxiety Head Injury: no evidence of injury Eye Exam: PERRL/EOMI, eyes nml inspection ENT Exam: airway nml, nml ext.inspection, No evidence of ENT injury Neck Exam: supple, trachea midline, full range of motion, normal alignment, normal inspection Respiratory/Chest Exam: normal breath sounds, No chest tenderness, No respiratory distress Cardiovascular Exam: normal heart sounds Gastrointestinal Exam: soft, normal bowel sounds, No tenderness Rectal Exam: not done Back Exam: normal inspection, normal range of motion, No CVA tenderness, No vertebral tenderness Extremity Exam: normal inspection, normal range of motion, pelvis stable Neurologic Exam: alert, oriented x 3, cooperative, 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-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 tested, normal mood/affect, nml cerebellar function, nml station & gait, sensation nml Skin Exam: normal color, warm, dry SpO2 Interpretation: normal O2 Delivery: Room Air - Course Nursing assessment & vital signs reviewed: Yes EKG Interpreted by Me: RATE (75), Sinus Rhythm, NORMAL AXIS, NORMAL INTERVALS, 1st degree AV Block, NORMAL QRS, Other (When compared to the EKG dated 06/03/2019, the current updated EKG shows resolution of nonspecific ST changes.) Ordered Tests: Active Orders 24 hr Category Date Time Status Crowning Hammer Operator STAT Care 05/13/20 21:48 Active EKG-ER Only STAT Care 05/13/20 21:47 Active IV Insertion STAT Care 05/13/20 21:47 Active Isolation, Initiate & Maintain STAT Care 05/13/20 21:47 Active Pulse Oximetry (ED) STAT Care 05/13/20 21:47 Active CHEST 1 VIEW (PORTABLE) Stat Exams 05/13/20 21:47 Taken HEAD WITHOUT CONTRAST [CT] Stat Exams 05/13/20 21:48 Taken BLOOD CULTURE Stat Lab 05/13/20 22:20 Received CBC W DIFF Stat Lab 05/13/20 22:15 Completed CMP Stat Lab 05/13/20 22:15 Completed Ferritin Stat Lab 05/13/20 22:15 Completed INFLUENZA A+B MARCO ANTONIO Stat Lab 05/13/20 22:15 Completed LDH-LACTATE DEHYDROGENASE Stat Lab 05/13/20 22:15 Completed Lactic Acid Stat Lab 05/13/20 22:40 Completed Harvey Screen Stat Lab 05/13/20 22:15 Completed TROPONIN Q3H Lab 05/13/20 22:15 Completed TROPONIN Q3H Lab 05/14/20 01:00 Ordered TROPONIN Q3H Lab 05/14/20 04:00 Ordered TROPONIN Q3H Lab 05/14/20 07:00 Ordered TROPONIN Q3H Lab 05/14/20 10:00 Ordered Medication Summary Generic Name Dose Route Start Last Admin Trade Name Martha PRN Reason Stop Dose Admin Sodium Chloride 1,000 mls @ 100 mls/hr 05/13/20 22:00 05/13/20 22:33 Sodium Chloride 0.9% 1000 Ml IV 06/12/20 21:59 100 mls/hr .Q10H MANAV Administration Discontinued Medications Generic Name Dose Route Start Last Admin Trade Name Martha PRN Reason Stop Dose Admin Ondansetron HCl 4 mg 05/13/20 21:47 05/13/20 22:33 Zofran 4 Mg/2 Ml Vial IV 05/13/20 21:48 4 mg STAT STA Administration Ondansetron HCl Confirm 05/13/20 22:30 Zofran 4 Mg/2 Ml Vial Administered 05/13/20 22:31 Dose 4 mg .ROUTE .[employer]-MED ONE Lab/Rad Data: Laboratory Result Diagrams 05/13/20 22:15 05/13/20 22:15 Laboratory Results 05/13/20 05/13/20 05/13/20 Range/Units 22:40 22:15 22:15 WBC (4.0-10.5) K/mm3 RBC (4.1-5.6) M/mm3 Hgb (12.5-18.0) gm/dl Hct (42-50) % MCV (78-100) fl MCH (26-32) pg MCHC (32-36) g/dl RDW (11.5-14.0) % Plt Count (150-450) K/mm3 MPV (7.5-11.0) fl Gran % (36.0-66.0) % Eos # (Auto) (0-0.5) Absolute Lymphs (auto) (1.0-4.6) Absolute Monos (auto) (0.0-1.3) Lymphocytes % (24.0-44.0) % Monocytes % (0.0-12.0) % Eosinophils % (0.00-5.0) % Basophils % (0.0-0.4) % Absolute Granulocytes (1.4-6.9) Basophils # (0-0.4) Sodium (137-145) mmol/L Potassium (3.5-5.1) mmol/L Chloride (98-107) mmol/L Carbon Dioxide (22-30) mmol/L Anion Gap (5-15) MEQ/L BUN (9-20) mg/dL Creatinine (0.66-1.25) mg/dL Estimated GFR ML/MIN Glucose (74-106) mg/dL Lactic Acid 1.8 (0.4-2.0) Calcium (8.4-10.2) mg/dL Ferritin 85.6 (17.9-464) ng/mL Total Bilirubin (0.2-1.3) mg/dL AST (17-59) U/L ALT (0-50) U/L Alkaline Phosphatase (38-126) U/L Lactate Dehydrogenase (120-246) U/L Troponin I (0.000-0.034) ng/mL Serum Total Protein (6.3-8.2) g/dL Albumin (3.5-5.0) g/dL Monoscreen NEGATIVE (Negative) Influenza Type A Ag (NEGATIVE) Influenza Type B Ag (NEGATIVE) Group A Strep Antibody (NEGATIVE) 05/13/20 05/13/20 05/13/20 Range/Units 22:15 22:15 22:15 WBC (4.0-10.5) K/mm3 RBC (4.1-5.6) M/mm3 Hgb (12.5-18.0) gm/dl Hct (42-50) % MCV (78-100) fl MCH (26-32) pg MCHC (32-36) g/dl RDW (11.5-14.0) % Plt Count (150-450) K/mm3 MPV (7.5-11.0) fl Gran % (36.0-66.0) % Eos # (Auto) (0-0.5) Absolute Lymphs (auto) (1.0-4.6) Absolute Monos (auto) (0.0-1.3) Lymphocytes % (24.0-44.0) % Monocytes % (0.0-12.0) % Eosinophils % (0.00-5.0) % Basophils % (0.0-0.4) % Absolute Granulocytes (1.4-6.9) Basophils # (0-0.4) Sodium 132 L (137-145) mmol/L Potassium 4.0 (3.5-5.1) mmol/L Chloride 98 (98-107) mmol/L Carbon Dioxide 26 (22-30) mmol/L Anion Gap 12.0 (5-15) MEQ/L BUN 25 H (9-20) mg/dL Creatinine 0.81 (0.66-1.25) mg/dL Estimated GFR > 60.0 ML/MIN Glucose 138 H (74-106) mg/dL Lactic Acid (0.4-2.0) Calcium 8.6 (8.4-10.2) mg/dL Ferritin (17.9-464) ng/mL Total Bilirubin 0.50 (0.2-1.3) mg/dL AST 37 (17-59) U/L ALT 18 (0-50) U/L Alkaline Phosphatase 65 (38-126) U/L Lactate Dehydrogenase 159 (120-246) U/L Troponin I < 0.012 (0.000-0.034) ng/mL Serum Total Protein 6.6 (6.3-8.2) g/dL Albumin 3.8 (3.5-5.0) g/dL Monoscreen (Negative) Influenza Type A Ag (NEGATIVE) Influenza Type B Ag (NEGATIVE) Group A Strep Antibody NOT DETECTED (NEGATIVE) 05/13/20 05/13/20 Range/Units 22:15 22:15 WBC 4.8 (4.0-10.5) K/mm3 RBC 3.97 L (4.1-5.6) M/mm3 Hgb 12.8 (12.5-18.0) gm/dl Hct 38.5 L (42-50) % MCV 97.0 (78-100) fl MCH 32.2 H (26-32) pg MCHC 33.2 (32-36) g/dl RDW 14.0 (11.5-14.0) % Plt Count 136 L (150-450) K/mm3 MPV 9.3 (7.5-11.0) fl Gran % 63.4 (36.0-66.0) % Eos # (Auto) 0.01 (0-0.5) Absolute Lymphs (auto) 1.21 (1.0-4.6) Absolute Monos (auto) 0.54 (0.0-1.3) Lymphocytes % 25.0 (24.0-44.0) % Monocytes % 11.2 (0.0-12.0) % Eosinophils % 0.2 (0.00-5.0) % Basophils % 0.2 (0.0-0.4) % Absolute Granulocytes 3.07 (1.4-6.9) Basophils # 0.01 (0-0.4) Sodium (137-145) mmol/L Potassium (3.5-5.1) mmol/L Chloride (98-107) mmol/L Carbon Dioxide (22-30) mmol/L Anion Gap (5-15) MEQ/L BUN (9-20) mg/dL Creatinine (0.66-1.25) mg/dL Estimated GFR ML/MIN Glucose (74-106) mg/dL Lactic Acid (0.4-2.0) Calcium (8.4-10.2) mg/dL Ferritin (17.9-464) ng/mL Total Bilirubin (0.2-1.3) mg/dL AST (17-59) U/L ALT (0-50) U/L Alkaline Phosphatase (38-126) U/L Lactate Dehydrogenase (120-246) U/L Troponin I (0.000-0.034) ng/mL Serum Total Protein (6.3-8.2) g/dL Albumin (3.5-5.0) g/dL Monoscreen (Negative) Influenza Type A Ag NEGATIVE (NEGATIVE) Influenza Type B Ag NEGATIVE (NEGATIVE) Group A Strep Antibody (NEGATIVE) - Progress Progress: improved, re-examined Progress Note: 05/13/20 23:19 Chest x-ray shows no acute cardiopulmonary process. 05/13/20 23:51 CAT scan of the head without contrast reveals no acute intracranial abnormality. Medical decision making: I spoke with Dr. Vieyra regarding this patient. I think the patient was most concerned about he may have sepsis. He recalled that when he fell for unknown reasons in the past he was septic. The source was urine 2 to 3 years ago when he had similar episode. He was recently diagnosed with a urinary tract infection but he is on cefdinir for this. The patient has no chest pain. His troponin is normal his EKG shows no acute ischemic changes. His chest x-ray shows no acute cardiopulmonary process. He is afebrile his white count is normal his lactic acid is normal as is his anion gap. Dr. Vieyra agrees that the patient can be discharged to home and he will see the patient in his office once the patient calls to make a follow-up appointment. Discussed with : Machelle Counseled pt/family regarding: lab results, diagnosis, rad results - Departure Departure Disposition: Home Clinical Impression: Fall Condition: Stable Critical Care Time: No Referrals: ROWENA VIEYRA MD [Primary Care Provider] - Additional Instructions: Follow-up with Dr. Vieyra's office tomorrow by phone to make arranges for follow- up appointment. Take all your medications as prescribed. Drink plenty of fluids.
[2020-05-13] MEDS ORDERED: Zofran 4 MG/2 ML VIAL IV STA (21:47)
[2020-05-13] MEDS ORDERED: Sodium Chloride 0.9% 1000 ML 1,000 ML IV SCH (22:00)
[2020-05-13] MEDS ORDERED: Zofran 4 MG/2 ML VIAL ONE (22:30)
[2020-05-13] MEDS ORDERED: Sodium Chloride 0.9% 1000 ML 1,000 ML ONE (22:30)
[2020-05-13 22:35] LABS: Absolute Neutrophil Ct (ANC) 3.07 (1.4-6.9); BASOPHIL % 0.2 % (0.0-0.4); Basophil (Absolute #) 0.01 (0-0.4); Eosinophil % 0.2 % (0.00-5.0); Eosinophil (Absolute #) 0.01 (0-0.5); Hematocrit 38.5 % (42-50); Hemoglobin 12.8 gm/dl (12.5-18.0); Lymphocyte (Absolute #) 1.21 (1.0-4.6); Mean Corpuscular Hemoglobin 32.2 pg (26-32); Mean Corpuscular Hgb Concent. 33.2 g/dl (32-36); Mean Platelet Volume 9.3 fl (7.5-11.0); Monocyte (Absolute #) 0.54 (0.0-1.3); Monocytes % 11.2 % (0.0-12.0); Neutrophil % 63.4 % (36.0-66.0); Platelet Count 136 K/mm3 (150-450); Red Blood Count 3.97 M/mm3 (4.1-5.6); White Blood Count 4.8 K/mm3 (4.0-10.5)
[2020-05-13 22:49] LABS: ALBUMIN 3.8 g/dL (3.5-5.0); ALKALINE PHOSPHATASE 65 U/L (38-126); BLOOD UREA NITROGEN 25 mg/dL (9-20); CHLORIDE 98 mmol/L (98-107); Calcium 8.6 mg/dL (8.4-10.2); Carbon Dioxide 26 mmol/L (22-30); Creatinine 1 0.81 mg/dL (0.66-1.25); EST GLOMERULAR FILTRATION RATE > 60.0 ML/MIN; Glucose 138 mg/dL (74-106); LDH-LACTATE DEHYDROGENASE 159 U/L (120-246); SGOT/AST 37 U/L (17-59); SGPT/ALT 18 U/L (0-50); SODIUM 132 mmol/L (137-145); Total Protein 6.6 g/dL (6.3-8.2)
[2020-05-13 22:53] LABS: INFLUENZA A NEGATIVE (NEGATIVE); INFLUENZA B NEGATIVE (NEGATIVE)
[2020-05-14] MEDS ORDERED: Zofran 4 MG/2 ML VIAL IV ONE (01:13)
[2020-05-14] MEDS ORDERED: Zofran 4 MG/2 ML VIAL ONE (01:33)
[2020-05-14 01:47] VITALS: O2SAT 95
[2020-05-14 01:48] VITALS: BP 141/76; PULSE 82
--- NOTE | 2020-05-14 09:13 | XRAY ---
Indication: Frequent falls. Multiple contiguous axial images obtained through the head without contrast. Comparison: April 24, 2014. Again age-appropriate global atrophy and minimal periventricular degenerative micro-ischemia bilaterally. New right basal ganglia remote lacunar infarct. No acute intracranial hemorrhage, abnormal extra-axial fluid collection, or mass effect. Fourth ventricle is midline without hydrocephalus. Bony calvarium intact. Visualized paranasal sinuses and mastoid air cells are clear. 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 Comment: Preliminary interpretation was made by [facility]. No critical discrepancy.
--- NOTE | 2020-05-14 09:16 | XRAY ---
Indication: Cough. Positive Covid 19. Comparison: June 03, 2019. Portable apical lordotic chest again demonstrates right upper lung subsegmental atelectasis/scarring and a few scattered calcified granulomas. No focal infiltrate, consolidation, or large effusion. Heart is not enlarged. Bony thorax intact again with osteopenia and degenerative changes. Impression: Nonacute chest with chronic features.
== END 2020-05-14 01:58 | disposition home or self-care (01) ==
LOC: ED 21:18
DX: R53.1 Weakness (principal); R29.6 Repeated falls; M79.606 Pain in leg, unspecified; U07.1 COVID-19; I10 Essential (primary) hypertension; E11.9 Type 2 diabetes mellitus without complications; Z79.899 Other long term (current) drug therapy; F41.9 Anxiety disorder, unspecified
CPT/HCPCS: 36000; 36415; 70450; 71045; 80053; 82728; 83605; 83615; 84484; 85025; 86308; 87040; 87400; 87651; 93005; 93041; 94760; 96374; 96376; 99284; J2405

== ENCOUNTER 2020-05-15 10:59 | Inpatient (IN) | payer MEDICARE ==
--- NOTE | 2020-05-15 11:09 | ERPHSYRPT ---
- History of Present Illness Time Seen by Provider: 05/15/20 11:08 Historian: patient Exam Limitations: no limitations Physician History: This is an 84-year-old white male who is diabetic and has hypertension and is also Covid positive and presents with several day history of vomiting. Patient was initially seen on 05/10/2020 and diagnosed with urinary tract infection. He was given a prescription for cefdinir oral antibiotics. 3 days later he returned to the emergency department because he had fallen twice during that day and he was concerned that he did not know why he fell. He had no specific complaints. Patient had extensive work-up. He was given IV hydration. I spoke with Dr. Vieyra, his primary care physician, on that evening of his emergency room visit. Patient was well enough to be discharged to home. He has been home for less than 48 hours and returns today because of vomiting and weakness complaints. Timing/Duration: day(s) (Several days) Activities at Onset: none Severity of Pain-Max: none Severity of Pain-Current: none Modifying Factors: Improves With: vomiting Associated Symptoms: nausea, vomiting Previous symptoms: same symptoms as today, recently seen, recently treated Allergies/Adverse Reactions: No Known Drug Allergies Allergy (Verified 05/15/20 11:02) Home Medications: Tamsulosin HCl 0.4 mg [Flomax 0.4 MG] 0.4 mg PO BID 04/24/14 [History] Atorvastatin Calcium [Lipitor 20MG Tablet] 20 mg PO HS 01/04/19 [History] Clopidogrel Bisulfate [Clopidogrel] 75 mg PO DAILY 01/04/19 [History] Glipizide/Metformin HCl [Glipizide-Metformin 5-500 mg] 1 each PO TID 01/04/19 [History] Aspirin EC 81 mg [Ecotrin 81 mg] 81 mg PO DAILY 06/03/19 [History] Cholecalciferol (Vitamin D3) [Vitamin D3] 1,000 unit PO DAILY 06/24/19 [History] Multivitamin [Multiple Vitamins] 1 each PO DAILY 06/24/19 [History] Lisinopril 20 mg [Zestril 20 MG] 20 mg PO DAILY 05/10/20 [History] Hx Tetanus, Diphtheria Vaccination/Date Given: No Hx Influenza Vaccination/Date Given: Yes Hx Pneumococcal Vaccination/Date Given: Yes Travel Risk - International Travel Have you traveled outside of the country in past 3 weeks: No - Coronavirus Screening Are you exhibiting any of the following symptoms?: Yes Symptoms: Vomiting/Diarrhea Close contact with a COVID-19 positive Pt in past 14-21 Days: Yes - Review of Systems Constitutional: Weakness Eyes: No Symptoms Ears, Nose, & Throat: No Symptoms Respiratory: No Symptoms Cardiac: No Symptoms Abdominal/Gastrointestinal: Nausea, Vomiting, No Abdominal Pain, No Diarrhea Genitourinary Symptoms: No Symptoms Musculoskeletal: No Symptoms Skin: No Symptoms Neurological: No Symptoms Psychological: No Symptoms Endocrine: No Symptoms Hematologic/Lymphatic: No Symptoms Immunological/Allergic: No Symptoms All Other Systems: Reviewed and Negative - Past Medical History Pertinent Past Medical History: Yes Neurological History: No Pertinent History ENT History: No Pertinent History Cardiac History: No Pertinent History Respiratory History: No Pertinent History Endocrine Medical History: Diabetes Type II Musculoskeletal History: No Pertinent History GI Medical History: No Pertinent History History: No Pertinent History Psycho-Social History: No Pertinent History Male Reproductive Disorders: Prostate Problems Other Medical History: back surgery (discectomy) - Past Surgical History Past Surgical History: Yes Neuro Surgical History: No Pertinent History Cardiac: Cardiac Catheterization, Cardiac Stent Respiratory: No Pertinent History Gastrointestinal: Appendectomy Genitourinary: No Pertinent History Musculoskeletal: Other Male Surgical History: No Pertinent History Other Surgical History: achilles tendon, back surgery - Social History Smoking Status: Never smoker Exposure to second hand smoke: No Drug Use: none Patient Lives Alone: No - Nursing Vital Signs Nursing Vital Signs: Initial Vital Signs Temperature 99.6 F 05/15/20 11:03 Pulse Rate 95 H 05/15/20 11:03 Respiratory Rate 18 05/15/20 11:03 Blood Pressure 135/93 05/15/20 11:03 O2 Sat by Pulse Oximetry 95 05/15/20 11:03 Pain Scale Pain Intensity 5 - Physical Exam General Appearance: no apparent distress, alert, anxiety Eye Exam: PERRL/EOMI, eyes nml inspection Ears, Nose, Throat Exam: normal ENT inspection, moist mucous membranes Neck Exam: normal inspection, non-tender, supple, full range of motion Respiratory Exam: normal breath sounds, lungs clear, airway intact, No chest tenderness, No respiratory distress Cardiovascular Exam: regular rate/rhythm, normal heart sounds, normal peripheral pulses Gastrointestinal/Abdomen Exam: soft, normal bowel sounds, No tenderness Rectal Exam: not done Back Exam: normal inspection, normal range of motion, No CVA tenderness, No vertebral tenderness Extremity Exam: normal inspection, normal range of motion, pelvis stable Neurologic Exam: alert, oriented x 3, cooperative, senior advocate II-XII nml as tested, normal mood/affect, nml cerebellar function, nml station & gait, sensation nml Skin Exam: normal color, warm, dry Lymphatic Exam: No adenopathy SpO2 Interpretation: normal O2 Delivery: Room Air - Course Nursing assessment & vital signs reviewed: Yes EKG Interpreted by Me: RATE (91), Sinus Rhythm, NORMAL AXIS, NORMAL QRS, Other (Prolonged FL interval. There is no acute ischemic changes present.) Ordered Tests: Active Orders 24 hr Category Date Time Status EKG-ER Only STAT Care 05/15/20 11:10 Active IV Insertion STAT Care 05/15/20 11:10 Active AMYLASE Stat Lab 05/15/20 11:30 Completed CBC W DIFF Stat Lab 05/15/20 11:30 Completed CMP Stat Lab 05/15/20 11:30 Completed CULTURE,URINE Stat Lab 05/15/20 11:22 Received D-DIMER QUANTITATIVE Stat Lab 05/15/20 12:25 Completed LIPASE Stat Lab 05/15/20 11:30 Completed Lactic Acid Stat Lab 05/15/20 11:16 Completed MAGNESIUM Stat Lab 05/15/20 11:30 Completed UA W/RFX UR CULTURE Stat Lab 05/15/20 11:22 Completed Transfer Order Routine Transfer 05/15/20 Ordered Medication Summary Generic Name Dose Route Start Last Admin Trade Name Freq PRN Reason Stop Dose Admin Sodium Chloride 1,000 mls @ 100 mls/hr 05/15/20 11:15 05/15/20 11:17 Sodium Chloride 0.9% 1000 Ml IV 06/14/20 11:14 100 mls/hr .Q10H MANAV Administration Discontinued Medications Generic Name Dose Route Start Last Admin Trade Name Freq PRN Reason Stop Dose Admin Ondansetron HCl 4 mg 05/15/20 11:10 05/15/20 11:17 Zofran 4 Mg/2 Ml Vial IV 05/15/20 11:11 4 mg STAT ONE Administration Ondansetron HCl Confirm 05/15/20 11:16 Zofran 4 Mg/2 Ml Vial Administered 05/15/20 11:17 Dose 4 mg .ROUTE .STK-MED ONE Lab/Rad Data: Laboratory Result Diagrams 05/15/20 11:30 05/15/20 11:30 Laboratory Results 05/15/20 05/15/20 05/15/20 Range/Units 12:25 11:30 11:30 WBC 4.8 (4.0-10.5) K/mm3 RBC 4.37 (4.1-5.6) M/mm3 Hgb 13.9 (12.5-18.0) gm/dl Hct 41.9 L (42-50) % MCV 95.9 (78-100) fl MCH 31.8 (26-32) pg MCHC 33.2 (32-36) g/dl RDW 13.8 (11.5-14.0) % Plt Count 153 (150-450) K/mm3 MPV 9.6 (7.5-11.0) fl Gran % 61.2 (36.0-66.0) % Eos # (Auto) 0.01 (0-0.5) Absolute Lymphs (auto) 1.24 (1.0-4.6) Absolute Monos (auto) 0.60 (0.0-1.3) Lymphocytes % 25.9 (24.0-44.0) % Monocytes % 12.5 H (0.0-12.0) % Eosinophils % 0.2 (0.00-5.0) % Basophils % 0.2 (0.0-0.4) % Absolute Granulocytes 2.93 (1.4-6.9) Basophils # 0.01 (0-0.4) D-Dimer 601 H* (215-500) ng/mL Sodium 131 L (137-145) mmol/L Potassium 4.1 (3.5-5.1) mmol/L Chloride 96 L (98-107) mmol/L Carbon Dioxide 26 (22-30) mmol/L Anion Gap 12.9 (5-15) MEQ/L BUN 20 (9-20) mg/dL Creatinine 0.85 (0.66-1.25) mg/dL Estimated GFR > 60.0 ML/MIN Glucose 219 H (74-106) mg/dL Lactic Acid (0.4-2.0) Calcium 8.1 L (8.4-10.2) mg/dL Magnesium 1.9 (1.6-2.3) mg/dL Total Bilirubin 0.60 (0.2-1.3) mg/dL AST 38 (17-59) U/L ALT 19 (0-50) U/L Alkaline Phosphatase 57 (38-126) U/L Serum Total Protein 6.3 (6.3-8.2) g/dL Albumin 3.5 (3.5-5.0) g/dL Amylase 39 (30-110) U/L Lipase 54 (23-300) U/L Urine Color (YELLOW) Urine Appearance (CLEAR) Urine pH (5-6) Ur Specific Gary (1.005-1.025) Urine Protein (Negative) Urine Ketones (NEGATIVE) Urine Blood (0-5) Bronson/ul Urine Nitrite (NEGATIVE) Urine Bilirubin (NEGATIVE) Urine Urobilinogen (0-1) mg/dL Ur Leukocyte Esterase (NEGATIVE) Urine WBC (Auto) (0-5) /HPF Urine RBC (Auto) (0-2) /HPF U Epithel Cells (Auto) (FEW) /HPF Urine Bacteria (Auto) (NEGATIVE) /HPF Granular Casts (Auto) (NEGATIVE) /LPF Urine Mucus (Auto) (NEGATIVE) /HPF Urine Culture Reflexed (NO) Urine Glucose (NEGATIVE) mg/dL 05/15/20 05/15/20 Range/Units 11:22 11:16 WBC (4.0-10.5) K/mm3 RBC (4.1-5.6) M/mm3 Hgb (12.5-18.0) gm/dl Hct (42-50) % MCV (78-100) fl MCH (26-32) pg MCHC (32-36) g/dl RDW (11.5-14.0) % Plt Count (150-450) K/mm3 MPV (7.5-11.0) fl Gran % (36.0-66.0) % Eos # (Auto) (0-0.5) Absolute Lymphs (auto) (1.0-4.6) Absolute Monos (auto) (0.0-1.3) Lymphocytes % (24.0-44.0) % Monocytes % (0.0-12.0) % Eosinophils % (0.00-5.0) % Basophils % (0.0-0.4) % Absolute Granulocytes (1.4-6.9) Basophils # (0-0.4) D-Dimer (215-500) ng/mL Sodium (137-145) mmol/L Potassium (3.5-5.1) mmol/L Chloride (98-107) mmol/L Carbon Dioxide (22-30) mmol/L Anion Gap (5-15) MEQ/L BUN (9-20) mg/dL Creatinine (0.66-1.25) mg/dL Estimated GFR ML/MIN Glucose (74-106) mg/dL Lactic Acid 1.4 (0.4-2.0) Calcium (8.4-10.2) mg/dL Magnesium (1.6-2.3) mg/dL Total Bilirubin (0.2-1.3) mg/dL AST (17-59) U/L ALT (0-50) U/L Alkaline Phosphatase (38-126) U/L Serum Total Protein (6.3-8.2) g/dL Albumin (3.5-5.0) g/dL Amylase (30-110) U/L Lipase (23-300) U/L Urine Color EMRE (YELLOW) Urine Appearance SLIGHTLY CLOUDY (CLEAR) Urine pH 5.0 (5-6) Ur Specific Gary 1.025 (1.005-1.025) Urine Protein 100 (Negative) Urine Ketones MODERATE (NEGATIVE) Urine Blood NEGATIVE (0-5) Bronson/ul Urine Nitrite NEGATIVE (NEGATIVE) Urine Bilirubin NEGATIVE (NEGATIVE) Urine Urobilinogen NEGATIVE (0-1) mg/dL Ur Leukocyte Esterase NEGATIVE (NEGATIVE) Urine WBC (Auto) 3-5 (0-5) /HPF Urine RBC (Auto) 3-5 (0-2) /HPF U Epithel Cells (Auto) NONE (FEW) /HPF Urine Bacteria (Auto) FEW (NEGATIVE) /HPF Granular Casts (Auto) 0-2 (NEGATIVE) /LPF Urine Mucus (Auto) MODERATE (NEGATIVE) /HPF Urine Culture Reflexed YES (NO) Urine Glucose 50 (NEGATIVE) mg/dL - Progress Progress: improved, re-examined Progress Note: 05/15/20 12:26 Medical decision making: This patient has been to the emergency room for various issues 3 times in the last 5 days. He is COVID-19 positive and he has been having vomiting and not taking oral intake well. He presents with dehydration today. I spoke with Dr. William and we agree that the patient should be placed in observation for IV hydration and control of his emesis. We will repeat labs in the morning including repeat D-dimer. Dr. William thinks that we need to start him on remdesivir and we will do so. Discussed with Dr.: Other (Stewart) Counseled pt/family regarding: lab results, diagnosis - Departure Departure Disposition: Observation Clinical Impression: Vomiting, Dehydration Condition: Stable Critical Care Time: No Referrals: ROWENA VIEYRA MD [Primary Care Provider] -
[2020-05-15] MEDS ORDERED: Zofran 4 MG/2 ML VIAL IV ONE (11:10)
[2020-05-15] MEDS ORDERED: Sodium Chloride 0.9% 1000 ML 1,000 ML IV SCH (11:15)
[2020-05-15] MEDS ORDERED: Zofran 4 MG/2 ML VIAL ONE (11:16)
[2020-05-15 11:35] LABS: Absolute Neutrophil Ct (ANC) 2.93 (1.4-6.9); BASOPHIL % 0.2 % (0.0-0.4); Basophil (Absolute #) 0.01 (0-0.4); Eosinophil % 0.2 % (0.00-5.0); Eosinophil (Absolute #) 0.01 (0-0.5); Hematocrit 41.9 % (42-50); Hemoglobin 13.9 gm/dl (12.5-18.0); Lymphocyte (Absolute #) 1.24 (1.0-4.6); Lymphocytes % 25.9 % (24.0-44.0); Mean Cell Volume 95.9 fl (78-100); Mean Corpuscular Hemoglobin 31.8 pg (26-32); Mean Corpuscular Hgb Concent. 33.2 g/dl (32-36); Mean Platelet Volume 9.6 fl (7.5-11.0); Monocytes % 12.5 % (0.0-12.0); Neutrophil % 61.2 % (36.0-66.0); Platelet Count 153 K/mm3 (150-450); Red Blood Count 4.37 M/mm3 (4.1-5.6); Red Cell Distribution Width 13.8 % (11.5-14.0); White Blood Count 4.8 K/mm3 (4.0-10.5)
[2020-05-15 11:36] LABS: Appearance SLIGHTLY CLOUDY (CLEAR); Bacteria FEW /HPF (NEGATIVE); Bilirubin NEGATIVE (NEGATIVE); Blood NEGATIVE Ery/ul (0-5); Glucose 50 mg/dL (NEGATIVE); Granular Casts 0-2 /LPF (NEGATIVE); Ketones MODERATE (NEGATIVE); Leukocyte Esterase NEGATIVE (NEGATIVE); Mucus MODERATE /HPF (NEGATIVE); Nitrite NEGATIVE (NEGATIVE); Protein,Urine Dip 100 (Negative); Specific Gravity 1.025 (1.005-1.025); Urobilinogen NEGATIVE mg/dL (0-1)
[2020-05-15 12:10] LABS: ALBUMIN 3.5 g/dL (3.5-5.0); ALKALINE PHOSPHATASE 57 U/L (38-126); AMYLASE 39 U/L (30-110); ANION GAP 12.9 MEQ/L (5-15); BLOOD UREA NITROGEN 20 mg/dL (9-20); CHLORIDE 96 mmol/L (98-107); Calcium 8.1 mg/dL (8.4-10.2); Carbon Dioxide 26 mmol/L (22-30); Creatinine 1 0.85 mg/dL (0.66-1.25); EST GLOMERULAR FILTRATION RATE > 60.0 ML/MIN; Glucose 219 mg/dL (74-106); LIPASE 54 U/L (23-300); MAGNESIUM 1.9 mg/dL (1.6-2.3); Potassium 4.1 mmol/L (3.5-5.1); SGOT/AST 38 U/L (17-59); SGPT/ALT 19 U/L (0-50); SODIUM 131 mmol/L (137-145); Total Protein 6.3 g/dL (6.3-8.2)
[2020-05-15] MEDS ORDERED: Zofran 4 MG/2 ML VIAL IV PRN (16:42)
[2020-05-15] MEDS ORDERED: TYLENOL 325 MG PO PRN (16:42)
[2020-05-15] MEDS ORDERED: PROTONIX 40 MG IV IV SCH (17:00)
[2020-05-15] MEDS ORDERED: REMDESIVIR 200 MG in Sodium Chloride 0.9% 250 ML 250 ML IV ONE (17:15)
[2020-05-15] MEDS ORDERED: ZOFRAN ODT 4 MG PO PRN (17:25)
[2020-05-15] MEDS ORDERED: Ativan 1 MG PO PRN (17:26)
[2020-05-15] MEDS: Decadron 4 MG INJ IV SCH (18:11)
[2020-05-15] MEDS: ENOXAPARIN SODIUM SQ SCH (18:11)
[2020-05-15] MEDS: PROTONIX 40 MG IV IV SCH (18:14)
[2020-05-15] MEDS ORDERED: Glucotrol 5 MG PO SCH (20:00)
[2020-05-15] MEDS: Flomax 0.4 MG PO SCH (20:53)
[2020-05-15] MEDS ORDERED: ZOCOR 20MG ONE (20:53)
[2020-05-15] MEDS: Glucotrol 5 MG PO SCH ×2 (20:53→23:32)
[2020-05-15] MEDS: Glucophage 500 MG PO SCH ×2 (20:54→23:31)
[2020-05-15] MEDS: ZOCOR 20MG PO SCH (20:58)
[2020-05-15] MEDS: HUMALOG SQ PRN (21:00)
[2020-05-15] MEDS ORDERED: HUMULIN R SQ PRN (21:18)
[2020-05-15] MEDS ORDERED: LIPITOR 40MG PO SCH (22:00)
[2020-05-16] MEDS: Sodium Chloride 0.9% 1000 ML 1,000 ML IV SCH ×4 (00:10→21:21)
[2020-05-16] MEDS: Decadron 4 MG INJ IV SCH ×2 (05:34→18:36)
[2020-05-16 05:40] LABS: Absolute Neutrophil Ct (ANC) 2.94 (1.4-6.9); Basophil (Absolute #) 0 (0-0.4); Eosinophil % 0.2 % (0.00-5.0); Eosinophil (Absolute #) 0.01 (0-0.5); Hematocrit 37.4 % (42-50); Hemoglobin 12.5 gm/dl (12.5-18.0); Lymphocyte (Absolute #) 0.88 (1.0-4.6); Lymphocytes % 20.6 % (24.0-44.0); Mean Cell Volume 96.1 fl (78-100); Mean Corpuscular Hemoglobin 32.1 pg (26-32); Mean Corpuscular Hgb Concent. 33.4 g/dl (32-36); Mean Platelet Volume 9.5 fl (7.5-11.0); Monocyte (Absolute #) 0.44 (0.0-1.3); Monocytes % 10.3 % (0.0-12.0); Neutrophil % 68.9 % (36.0-66.0); Platelet Count 137 K/mm3 (150-450); Red Blood Count 3.89 M/mm3 (4.1-5.6); Red Cell Distribution Width 13.7 % (11.5-14.0); White Blood Count 4.3 K/mm3 (4.0-10.5)
[2020-05-16 05:52] LABS: INR 1.18 (0.8-3.0); PROTIME 13.3 SECONDS (8.83-12.87)
[2020-05-16 05:58] LABS: ALKALINE PHOSPHATASE 50 U/L (38-126); BLOOD UREA NITROGEN 15 mg/dL (9-20); Calcium 7.6 mg/dL (8.4-10.2); Glucose 179 mg/dL (74-106); SGOT/AST 34 U/L (17-59)
[2020-05-16 07:08] LABS: CHLORIDE 102 mmol/L (98-107); Carbon Dioxide 24 mmol/L (22-30); Creatinine 1 0.64 mg/dL (0.66-1.25); EST GLOMERULAR FILTRATION RATE > 60.0 ML/MIN; Potassium 4.2 mmol/L (3.5-5.1); SGPT/ALT 16 U/L (0-50); SODIUM 132 mmol/L (137-145); Total Protein 5.6 g/dL (6.3-8.2)
[2020-05-16 07:09] LABS: ANION GAP 10.2 MEQ/L (5-15)
[2020-05-16] MEDS: VITAMIN D PO SCH (09:04)
[2020-05-16] MEDS: Glucotrol 5 MG PO SCH ×3 (09:04→21:21)
[2020-05-16] MEDS: Zestril 20 MG PO SCH (09:04)
[2020-05-16] MEDS: ECOTRIN 81 MG PO SCH (09:04)
[2020-05-16] MEDS: THERAGRAN MULTIVITAMIN PO SCH (09:05)
[2020-05-16] MEDS: Glucophage 500 MG PO SCH ×3 (09:05→21:21)
[2020-05-16] MEDS: Flomax 0.4 MG PO SCH ×2 (09:06→21:21)
[2020-05-16] MEDS: PLAVIX 75 MG Tablet PO SCH (09:18)
[2020-05-16] MEDS ORDERED: NON-FORMULARY ITEM (Cholecalciferol (Vitamin D3) [Vitamin D3] 1,000 UNIT) PO SCH (10:00)
[2020-05-16] MEDS ORDERED: NON-FORMULARY ITEM (Multivitamin [Multiple Vitamins] 1 EACH) PO SCH (10:00)
[2020-05-16] MEDS: HUMALOG SQ PRN ×2 (11:48→16:05)
[2020-05-16] MEDS ORDERED: NORCO 5/325 MG PO PRN (13:32)
[2020-05-16] MEDS: ANTIVERT 25 MG PO SCH ×2 (16:05→21:21)
[2020-05-16] MEDS: ENOXAPARIN SODIUM SQ SCH (18:36)
[2020-05-16] MEDS: PROTONIX 40 MG IV IV SCH (18:37)
[2020-05-16] MEDS: REMDESIVIR 100 MG in Sodium Chloride 0.9% 100 ML IVPB 100 ML IV SCH (18:57)
[2020-05-16] MEDS: ZOCOR 20MG PO SCH (21:21)
[2020-05-17] MEDS: Decadron 4 MG INJ IV SCH ×2 (05:57→17:07)
[2020-05-17] MEDS: Sodium Chloride 0.9% 1000 ML 1,000 ML IV SCH (05:57)
[2020-05-17 06:55] LABS: INR 1.22 (0.8-3.0); PROTIME 13.8 SECONDS (8.83-12.87)
[2020-05-17 06:58] LABS: ALBUMIN 2.8 g/dL (3.5-5.0); ALKALINE PHOSPHATASE 51 U/L (38-126); ANION GAP 9.3 MEQ/L (5-15); BLOOD UREA NITROGEN 18 mg/dL (9-20); CHLORIDE 103 mmol/L (98-107); Calcium 7.6 mg/dL (8.4-10.2); Carbon Dioxide 25 mmol/L (22-30); Creatinine 1 0.77 mg/dL (0.66-1.25); EST GLOMERULAR FILTRATION RATE > 60.0 ML/MIN; Glucose 211 mg/dL (74-106); SGOT/AST 32 U/L (17-59); SGPT/ALT 17 U/L (0-50); SODIUM 134 mmol/L (137-145); Total Protein 5.3 g/dL (6.3-8.2)
[2020-05-17] MEDS: HUMALOG SQ PRN ×4 (07:44→22:00)
[2020-05-17] MEDS: ANTIVERT 25 MG PO SCH ×4 (09:04→22:00)
[2020-05-17] MEDS: ECOTRIN 81 MG PO SCH (09:04)
[2020-05-17] MEDS: VITAMIN D PO SCH (09:05)
[2020-05-17] MEDS: Zestril 20 MG PO SCH (09:05)
[2020-05-17] MEDS: THERAGRAN MULTIVITAMIN PO SCH (09:05)
[2020-05-17] MEDS: Glucotrol 5 MG PO SCH ×3 (09:06→22:00)
[2020-05-17] MEDS: Flomax 0.4 MG PO SCH ×2 (09:06→22:00)
[2020-05-17] MEDS: Glucophage 500 MG PO SCH ×3 (09:06→22:00)
[2020-05-17] MEDS: PLAVIX 75 MG Tablet PO SCH (09:06)
[2020-05-17] MEDS: REMDESIVIR 100 MG in Sodium Chloride 0.9% 100 ML IVPB 100 ML IV SCH (16:59)
[2020-05-17] MEDS: ENOXAPARIN SODIUM SQ SCH (17:07)
[2020-05-17] MEDS: PROTONIX 40 MG IV IV SCH (17:07)
[2020-05-17] MEDS: ZOCOR 20MG PO SCH (22:00)
[2020-05-18] MEDS: Decadron 4 MG INJ IV SCH ×2 (05:25→17:37)
[2020-05-18 05:51] LABS: Hematocrit 37.1 % (42-50); Hemoglobin 12.2 gm/dl (12.5-18.0); Mean Cell Volume 96.9 fl (78-100); Mean Corpuscular Hemoglobin 31.9 pg (26-32); Mean Corpuscular Hgb Concent. 32.9 g/dl (32-36); Mean Platelet Volume 9.8 fl (7.5-11.0); Platelet Count 123 K/mm3 (150-450); Red Blood Count 3.83 M/mm3 (4.1-5.6); White Blood Count 6.4 K/mm3 (4.0-10.5)
[2020-05-18 06:07] LABS: ALBUMIN 2.8 g/dL (3.5-5.0); ALKALINE PHOSPHATASE 54 U/L (38-126); ANION GAP 7.8 MEQ/L (5-15); BLOOD UREA NITROGEN 18 mg/dL (9-20); CHLORIDE 103 mmol/L (98-107); Calcium 7.9 mg/dL (8.4-10.2); Carbon Dioxide 27 mmol/L (22-30); Creatinine 1 0.71 mg/dL (0.66-1.25); EST GLOMERULAR FILTRATION RATE > 60.0 ML/MIN; Glucose 175 mg/dL (74-106); Potassium 3.8 mmol/L (3.5-5.1); SGOT/AST 30 U/L (17-59); SGPT/ALT 16 U/L (0-50); SODIUM 134 mmol/L (137-145); Total Protein 5.4 g/dL (6.3-8.2)
[2020-05-18 07:19] LABS: INR 1.25 (0.8-3.0); PROTIME 14.1 SECONDS (8.83-12.87)
[2020-05-18 07:33] LABS: Lymphocytes 11 % (24-44); Monocyte 11 % (0.0-12.0); Neutrophils 78 % (36.-66.); Total Cells Counted 100
[2020-05-18 07:34] LABS: Platelet Estimate DECREASED (NORMAL)
[2020-05-18] MEDS: Zestril 20 MG PO SCH (08:52)
[2020-05-18] MEDS: Flomax 0.4 MG PO SCH ×2 (08:52→22:34)
[2020-05-18] MEDS: Glucophage 500 MG PO SCH ×3 (08:52→22:34)
[2020-05-18] MEDS: PLAVIX 75 MG Tablet PO SCH (08:52)
[2020-05-18] MEDS: ECOTRIN 81 MG PO SCH (08:52)
[2020-05-18] MEDS: THERAGRAN MULTIVITAMIN PO SCH (08:52)
[2020-05-18] MEDS: VITAMIN D PO SCH (08:52)
[2020-05-18] MEDS: ANTIVERT 25 MG PO SCH ×4 (08:53→22:33)
[2020-05-18] MEDS: Glucotrol 5 MG PO SCH ×3 (08:57→22:33)
[2020-05-18] MEDS ORDERED: Lanoxin 0.5 MG/2 ML INJECTION IV ONE ×2 (10:58→13:12)
[2020-05-18] MEDS: HUMALOG SQ PRN ×3 (11:41→22:34)
--- NOTE | 2020-05-18 11:51 | HP ---
CHIEF COMPLAINT: Dizziness, falls, abdominal pain. HISTORY OF PRESENT ILLNESS: The patient is an 84 year old white male who was seen by his physician on the day before admission. He then started feeling actually more dizzy and had fallen several times and also having lower abdominal pain. He was put on Cefdinir for urinary tract infection. He states several times he has septic and both times it was preceded by leg pain so he is quite concerned as well as his falling. He is a diabetic and hypertensive. He had vomited for two days that seemed more related to his vertigo than anything else. He is also complaining of weakness not related to his gait instability. Because of the vomiting, vertigo and in general getting worse he was admitted for treatment of COVID. He also complained of fullness behind the right ear. He has hearing aids in. TRAVEL RISK: The patient has not traveled anywhere out of [facility], has not really been too much of anywhere. He does not know where he has picked it up. MEDICATIONS: Flomax 0.4 q.d., Lipitor 20 q.d., Plavix 75 q.d., Glipizide/Metformin 5/500 mg t.i.d., aspirin 81 q.d., vitamin D3 1,000 units daily, multivitamins q.d., Lisinopril 20. ALLERGIES: THE PATIENT FEELS HIS NAUSEA IS SECONDARY TO CEFDINIR SO I THINK THAT SHOULD BE NOTED A POSSIBLE ALLERGY. PAST MEDICAL HISTORY: Diabetes mellitus type II x20 years. Problems urinating. PAST SURGICAL HISTORY: Back surgery discectomy several years ago. Catheterization with placement of a stent five years ago. Appendectomy. SOCIAL HISTORY: He has never smoked. He lives with his who has COVID, I believe. PHYSICAL EXAMINATION: He is alert, orientated, in no severe distress, good historian. Vital signs are stable temperature 97F, pulse 80, respirations 20 and blood pressure 135/80. HEENT: Right eardrum might be a little full. There is no tenderness when I push the ear. Pupils are normal. NECK: Supple without adenopathy or JVD. CHEST: Clear. CVS: No murmurs or gallops. ABDOMEN: Soft. No masses. He is tender over umbilicus area. EXTREMITIES: No edema. No tenderness. No swelling. IMPRESSION: 1) The patient is somewhat dehydrated possibly related to COVID being positive, less likely reaction to Cefdinir. 2) Diabetes mellitus. 3) Coronary artery disease. 4) His UA was mildly abnormal and cultures pending. However I do not think that is the problem. PLAN: The patient will be started on anti-nausea medicine and maybe some Antivert, Decadron IV and Remdesivir, continued on his home medicines. PROGNOSIS: Good.
[2020-05-18] MEDS: REMDESIVIR 100 MG in Sodium Chloride 0.9% 100 ML IVPB 100 ML IV SCH (16:45)
[2020-05-18] MEDS: PROTONIX 40 MG IV IV SCH (17:36)
[2020-05-18] MEDS: ENOXAPARIN SODIUM SQ SCH (17:38)
[2020-05-18] MEDS: ZOCOR 20MG PO SCH (22:33)
[2020-05-19 06:12] LABS: Hematocrit 36.3 % (42-50); Mean Cell Volume 95.8 fl (78-100); Mean Corpuscular Hemoglobin 31.7 pg (26-32); Mean Corpuscular Hgb Concent. 33.1 g/dl (32-36); Mean Platelet Volume 10.3 fl (7.5-11.0); Platelet Count 120 K/mm3 (150-450); Red Blood Count 3.79 M/mm3 (4.1-5.6); Red Cell Distribution Width 13.7 % (11.5-14.0); White Blood Count 6.6 K/mm3 (4.0-10.5)
[2020-05-19 06:19] LABS: ALBUMIN 2.8 g/dL (3.5-5.0); ALKALINE PHOSPHATASE 62 U/L (38-126); ANION GAP 6.8 MEQ/L (5-15); BLOOD UREA NITROGEN 23 mg/dL (9-20); CHLORIDE 100 mmol/L (98-107); Calcium 8.2 mg/dL (8.4-10.2); Carbon Dioxide 32 mmol/L (22-30); Creatinine 1 0.77 mg/dL (0.66-1.25); EST GLOMERULAR FILTRATION RATE > 60.0 ML/MIN; Glucose 184 mg/dL (74-106); NT PRO BNP 1050 pg/mL (0-1800); Potassium 3.8 mmol/L (3.5-5.1); SGOT/AST 27 U/L (17-59); SGPT/ALT 16 U/L (0-50); SODIUM 135 mmol/L (137-145); Total Protein 5.2 g/dL (6.3-8.2)
[2020-05-19] MEDS: Decadron 4 MG INJ IV SCH ×2 (06:21→18:19)
[2020-05-19 06:24] LABS: INR 1.25 (0.8-3.0); PROTIME 14.2 SECONDS (8.83-12.87)
[2020-05-19] MEDS: Glucophage 500 MG PO SCH ×3 (09:39→21:35)
[2020-05-19] MEDS: ANTIVERT 25 MG PO SCH ×4 (09:39→21:35)
[2020-05-19] MEDS: Flomax 0.4 MG PO SCH ×2 (09:39→21:35)
[2020-05-19] MEDS: Glucotrol 5 MG PO SCH ×3 (09:39→21:36)
[2020-05-19] MEDS: THERAGRAN MULTIVITAMIN PO SCH (09:40)
[2020-05-19] MEDS: ECOTRIN 81 MG PO SCH (09:40)
[2020-05-19] MEDS: VITAMIN D PO SCH (09:40)
[2020-05-19] MEDS: PLAVIX 75 MG Tablet PO SCH (09:40)
[2020-05-19] MEDS: Zestril 20 MG PO SCH (09:43)
[2020-05-19] MEDS ORDERED: Lanoxin 0.125MG TABLET PO SCH (10:00)
[2020-05-19] MEDS: HUMALOG SQ PRN (12:15)
[2020-05-19] MEDS: REMDESIVIR 100 MG in Sodium Chloride 0.9% 100 ML IVPB 100 ML IV SCH (16:54)
[2020-05-19] MEDS: ENOXAPARIN SODIUM SQ SCH (18:19)
[2020-05-19] MEDS: PROTONIX 40 MG IV IV SCH (18:20)
[2020-05-19 21:30] VITALS: BP 168/75; PULSE 81; O2SAT 92
[2020-05-19] MEDS: ZOCOR 20MG PO SCH (21:35)
--- NOTE | 2020-05-20 13:02 | DS ---
ADMISSION DIAGNOSES: 1) COVID. 2) COVID labyrinthitis. 3) Hypoxia from COVID. 4) Sleep apnea. 5) Diabetes. 6) Hypertension. 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 DISCHARGE DIAGNOSES: 1) COVID. 2) COVID LABYRINTHITIS. 3) HYPOXIA FROM COVID. 4) SLEEP APNEA. 5) DIABETES. 6) HYPERTENSION. 7) NEUROPATHY IN THE LEGS. HISTORY: The patient was admitted after he was having trouble standing. He had vertigo, dizziness, fell several times. He also had lower abdominal pain. He had been put on Cefdinir at night for urinary tract symptoms. He stated that it was after that he got dizzy. He wanted to discontinue it. Because of vomiting and vertigo, he was tested and he was COVID positive. He has hearing aids in. He has fullness behind the right ear. He takes Flomax 0.4, Lipitor 20, Plavix 75, glipizide/Metformin 5/500 t.i.d., aspirin 81 q.d., vitamin D 1,000 a day, multiple vitamins. See history and physical. HOSPITAL COURSE: The patient was extremely dizzy. We did some positioning of the head. Set him up several times for treatment of labyrinthitis but the next day he was much better. His blood sugar stayed okay. His O2 was low at times but it seems to have normalized more in the high 80's with walking. He does have sleep apnea and I think he has a machine at home. His nausea did go away after stopping the Cefdinir maybe that is relation to the medicine or the COVID, just having labyrinthitis is impossible to tell. His UA was very minimal I do not think it needs treated due to his chronic benign prostatic hypertrophy, urinary stasis. On day of discharge I did not get to see him about 1600 hours. He had walked with a walker. He had minimal dizziness, feeling good and as always very talkative. We note his D-dimer was not elevated. He was drinking and eating well. He has a who is healthy at home. He will be discharged home on his home medications. I am going to stop the Antivert because of sleepiness. He did receive Remdesivir and Decadron. I think we can stop that due to normal D-dimer. PROGNOSIS: Good.
== END 2020-05-19 22:08 | disposition home or self-care (01) | DRG 178 ==
LOC: ED 10:59 → MED SURG 16:38 → OBSVTOIN 05-16 12:00
PROVIDERS: ADMIT Family Medicine; ATTEND Family Medicine
DX: U07.1 COVID-19 (principal); N39.0 Urinary tract infection, site not specified; H83.09 Labyrinthitis, unspecified ear; R53.1 Weakness; E11.9 Type 2 diabetes mellitus without complications; I10 Essential (primary) hypertension; R11.2 Nausea with vomiting, unspecified; Z79.899 Other long term (current) drug therapy; E86.0 Dehydration; R09.02 Hypoxemia; G47.30 Sleep apnea, unspecified; G62.9 Polyneuropathy, unspecified; R42 Dizziness and giddiness; N40.0 Benign prostatic hyperplasia without lower urinary tract symptoms; R29.6 Repeated falls; I25.10 Atherosclerotic heart disease of native coronary artery without angina pectoris
CPT/HCPCS: 36000; 36415; 80053; 81001; 82150; 82947; 83036; 83605; 83690; 83735; 83880; 85025; 85027; 85379; 85610; 87086; 93005; 93268; 94762; 96360; 96361; 96374; 99285; G0378; J1100; J1160; J1650; J1817; J2405; A9270-GY

== ENCOUNTER 2020-12-12 08:02 | Observation (INO) | payer MEDICARE ==
[2020-12-12] MEDS ORDERED: Sodium Chloride 0.9% 1000 ML 1,000 ML IV STA (08:28)
--- NOTE | 2020-12-12 08:36 | ERPHSYRPT ---
- History of Present Illness Time Seen by Provider: 12/12/20 08:33 Source: patient Exam Limitations: no limitations Patient Subjective Stated Complaint: weakness, dizziness x 1 day Triage Nursing Assessment: pt to ED c/o weakness and dizziness x1 day. reportsgetting COVID vaccine 2 days ago and woke up feeling poorly yesterday. fall from bed yesterday. "I got out of bed and just went down, my son had to get me up." denies pain now. no other COVID sx. Physician History: Patient is a 85-year-old male who presents with a complaint of weakness and dizziness this morning. He received his Covid vaccine on the eighth and then yesterday had a fall at home and could not get up because he was so weak. Furthermore he had a fall 1 week ago where he hit his head. He denies loss of consciousness but again he fell because he was weak and dizzy. He has had 2 episodes of sepsis in the past he says it was in the blood. Occurred: just prior to arrival Reason for Fall: became dizzy (Was also weak) Injuries/Pain Location: head (Head injury from fall 1 week ago) Loss of Consciousness: no loss of consciousness Severity of Pain-Max: mild Severity of Pain-Current: mild Associated Symptoms (Fall): dizziness, lightheadedness, trouble walking Allergies/Adverse Reactions: No Known Drug Allergies Allergy (Verified 05/15/20 11:02) Home Medications: Atorvastatin Calcium [Lipitor 20MG Tablet] 20 mg PO HS 01/04/19 [History] Clopidogrel Bisulfate [Clopidogrel] 75 mg PO DAILY 01/04/19 [History] Glipizide/Metformin HCl [Glipizide-Metformin 5-500 mg] 1 each PO TID 01/04/19 [History] Aspirin EC 81 mg [Ecotrin 81 mg] 81 mg PO DAILY 06/03/19 [History] Cholecalciferol (Vitamin D3) [Vitamin D3] 1,000 unit PO DAILY 06/24/19 [History] Multivitamin [Multiple Vitamins] 1 each PO DAILY 06/24/19 [History] Carvedilol [Coreg] 3.125 mg PO BID 12/12/20 [History] Digoxin 250 mcg PO DAILY 12/12/20 [History] Empagliflozin [Jardiance] 10 mg PO DAILY 12/12/20 [History] Hx Tetanus, Diphtheria Vaccination/Date Given: Yes Hx Influenza Vaccination/Date Given: Yes Hx Pneumococcal Vaccination/Date Given: Yes Immunizations Up to Date: Yes Travel Risk - International Travel Have you traveled outside of the country in past 3 weeks: No - Coronavirus Screening Are you exhibiting any of the following symptoms?: No Close contact with a COVID-19 positive Pt in past 14-21 Days: No - Vaccine Status Have you recieved a Covid-19 vaccination: Yes 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: [employer] - Vaccination Dates Date of 2cond Vaccination (if applicable): not recieved yet - Review of Systems Constitutional: No Fever, No Chills Eyes: No Symptoms Ears, Nose, & Throat: No Symptoms Respiratory: No Cough, No Dyspnea Cardiac: No Chest Pain, No Edema, No Syncope Abdominal/Gastrointestinal: No Abdominal Pain, No Nausea, No Vomiting, No Yvonne rrhea Genitourinary Symptoms: No Dysuria Musculoskeletal: No Back Pain, No Neck Pain Skin: No Rash Neurological: Dizziness, Focal Weakness, No Sensory Changes Psychological: No Symptoms Endocrine: No Symptoms All Other Systems: Reviewed and Negative - Past Medical History Pertinent Past Medical History: Yes Neurological History: No Pertinent History ENT History: No Pertinent History Cardiac History: Coronary Artery Disease Respiratory History: No Pertinent History Endocrine Medical History: Diabetes Type II Musculoskeletal History: No Pertinent History GI Medical History: No Pertinent History History: No Pertinent History Psycho-Social History: No Pertinent History Male Reproductive Disorders: Prostate Problems Other Medical History: back surgery (discectomy), 5 stents in heart(2014) - Past Surgical History Past Surgical History: Yes Neuro Surgical History: No Pertinent History Cardiac: Cardiac Catheterization, Cardiac Stent Respiratory: No Pertinent History Gastrointestinal: Appendectomy Genitourinary: No Pertinent History Musculoskeletal: Other Male Surgical History: No Pertinent History Other Surgical History: achilles tendon, back surgery - Social History Smoking Status: Never smoker Exposure to second hand smoke: No Drug Use: none Patient Lives Alone: No - Nursing Vital Signs Nursing Vital Signs: Initial Vital Signs Temperature 97.0 F 12/12/20 08:10 Pulse Rate 98 H 12/12/20 08:10 Respiratory Rate 17 12/12/20 08:10 Blood Pressure 135/85 12/12/20 08:10 O2 Sat by Pulse Oximetry 97 12/12/20 08:10 Pain Scale Pain Intensity 0 - Sherley Coma Score Best Eye Response (Sherley): (4) open spontaneously Best Verbal Response (Sherley): (5) oriented Best Motor Response (Sherley): (6) obeys commands Shickley Total: 15 - Physical Exam General Appearance: no apparent distress Head Injury: no evidence of injury Eye Exam: PERRL/EOMI, pale conjunctivae ENT Exam: airway nml Neck Exam: normal inspection, No tenderness Respiratory/Chest Exam: normal breath sounds, No chest tenderness, No respiratory distress Cardiovascular Exam: normal heart sounds, regular rate/rhythm Gastrointestinal Exam: soft, No tenderness, No distention, No guarding, No ecchymosis Back Exam: normal inspection, No vertebral tenderness Extremity Exam: normal inspection, normal range of motion, pelvis stable, No deformities Peripheral Pulses: carotid (R): 2+, carotid (L): 2+ Neurologic Exam: alert, oriented x 3, cooperative, sensation nml, No motor deficits Skin Exam: normal color, warm, dry SpO2 Interpretation: normal SpO2: 97 O2 Delivery: Room Air - Course Nursing assessment & vital signs reviewed: Yes EKG Interpreted by Me: RATE (83), Sinus Rhythm, NORMAL AXIS, Other (EKG shows prolonged SD interval and old inferior [place] suggested.) - Radiology Exams Chest X-ray Interpretation: Interpreted by me, Negative - CT Exams Head CT Interpretation: Tele-radiologist Report Ordered Tests: Active Orders 24 hr Category Date Time Status EKG-ER Only STAT Care 12/12/20 08:28 Active IV Insertion STAT Care 12/12/20 08:28 Active Orthostatic Vital Signs STAT Care 12/12/20 08:31 Active CHEST 1 VIEW (PORTABLE) Stat Exams 12/12/20 08:29 Taken HEAD WITHOUT CONTRAST [CT] Stat Exams 12/12/20 08:32 Taken AMYLASE Stat Lab 12/12/20 08:45 Completed BLOOD CULTURE Stat Lab 12/12/20 08:45 Ordered CBC W DIFF Stat Lab 12/12/20 08:45 Completed CMP Stat Lab 12/12/20 08:45 Completed FECAL OCCULT BLOOD - SCREENING Stat Lab 12/12/20 08:28 Ordered LIPASE Stat Lab 12/12/20 08:45 Completed Lactic Acid Stat Lab 12/12/20 08:28 Completed PROTIME WITH INR Stat Lab 12/12/20 08:45 Completed TROPONIN Q3H Lab 12/12/20 08:45 Completed TROPONIN Q3H Lab 12/12/20 11:30 Ordered TROPONIN Q3H Lab 12/12/20 14:30 Ordered TROPONIN Q3H Lab 12/12/20 17:30 Ordered TROPONIN Q3H Lab 12/12/20 20:30 Ordered UA W/RFX UR CULTURE Stat Lab 12/12/20 08:29 Ordered Medication Summary Discontinued Medications Generic Name Dose Route Start Last Admin Trade Name Martha PRN Reason Stop Dose Admin Sodium Chloride 1,000 mls @ 999 mls/hr 12/12/20 08:28 12/12/20 10:37 Sodium Chloride 0.9% 1000 Ml IV 12/12/20 09:28 Infused .Q1H1M STA Infusion Sodium Chloride Confirm 12/12/20 09:07 Sodium Chloride 0.9% 1000 Ml Administered 12/12/20 09:08 Dose 1,000 mls @ ud .ROUTE .STK-MED ONE Lab/Rad Data: Laboratory Result Diagrams 12/12/20 08:45 12/12/20 08:45 Laboratory Results 12/12/20 12/12/20 12/12/20 Range/Units 08:45 08:45 08:45 WBC (4.0-10.5) K/mm3 RBC (4.1-5.6) M/mm3 Hgb (12.5-18.0) gm/dl Hct (42-50) % MCV (78-100) fl MCH (26-32) pg MCHC (32-36) g/dl RDW (11.5-14.0) % Plt Count (150-450) K/mm3 MPV (7.5-11.0) fl Gran % (36.0-66.0) % Eos # (Auto) (0-0.5) Absolute Lymphs (auto) (1.0-4.6) Absolute Monos (auto) (0.0-1.3) Lymphocytes % (24.0-44.0) % Monocytes % (0.0-12.0) % Eosinophils % (0.00-5.0) % Basophils % (0.0-0.4) % Absolute Granulocytes (1.4-6.9) Basophils # (0-0.4) PT 12.7 H (9.4-12.5) SECONDS INR 1.08 (0.8-3.0) Sodium 136 L (137-145) mmol/L Potassium 4.4 (3.5-5.1) mmol/L Chloride 99 (98-107) mmol/L Carbon Dioxide 21 L (22-30) mmol/L Anion Gap 21.4 H (5-15) MEQ/L BUN 22 H (9-20) mg/dL Creatinine 0.96 (0.66-1.25) mg/dL Estimated GFR > 60.0 ML/MIN Glucose 183 H (74-106) mg/dL Lactic Acid (0.4-2.0) Calcium 9.2 (8.4-10.2) mg/dL Total Bilirubin 0.50 (0.2-1.3) mg/dL AST 25 (17-59) U/L ALT 14 (0-50) U/L Alkaline Phosphatase 95 (38-126) U/L Troponin I < 0.012 (0.000-0.034) ng/mL Serum Total Protein 7.2 (6.3-8.2) g/dL Albumin 4.3 (3.5-5.0) g/dL Amylase 47 (30-110) U/L Lipase 28 (23-300) U/L 12/12/20 12/12/20 Range/Units 08:45 08:28 WBC 8.6 (4.0-10.5) K/mm3 RBC 4.80 (4.1-5.6) M/mm3 Hgb 14.8 (12.5-18.0) gm/dl Hct 46.0 (42-50) % MCV 95.8 (78-100) fl MCH 30.8 (26-32) pg MCHC 32.2 (32-36) g/dl RDW 15.7 H (11.5-14.0) % Plt Count 179 (150-450) K/mm3 MPV 9.1 (7.5-11.0) fl Gran % 73.9 H (36.0-66.0) % Eos # (Auto) 0.33 (0-0.5) Absolute Lymphs (auto) 1.15 (1.0-4.6) Absolute Monos (auto) 0.73 (0.0-1.3) Lymphocytes % 13.3 L (24.0-44.0) % Monocytes % 8.5 (0.0-12.0) % Eosinophils % 3.8 (0.00-5.0) % Basophils % 0.5 (0.0-0.4) % Absolute Granulocytes 6.37 (1.4-6.9) Basophils # 0.04 (0-0.4) PT (9.4-12.5) SECONDS INR (0.8-3.0) Sodium (137-145) mmol/L Potassium (3.5-5.1) mmol/L Chloride (98-107) mmol/L Carbon Dioxide (22-30) mmol/L Anion Gap (5-15) MEQ/L BUN (9-20) mg/dL Creatinine (0.66-1.25) mg/dL Estimated GFR ML/MIN Glucose (74-106) mg/dL Lactic Acid 1.6 (0.4-2.0) Calcium (8.4-10.2) mg/dL Total Bilirubin (0.2-1.3) mg/dL AST (17-59) U/L ALT (0-50) U/L Alkaline Phosphatase (38-126) U/L Troponin I (0.000-0.034) ng/mL Serum Total Protein (6.3-8.2) g/dL Albumin (3.5-5.0) g/dL Amylase (30-110) U/L Lipase (23-300) U/L - Progress Progress: unchanged Discussed with : Machelle Will see patient in: hospital (observation) - Departure Departure Disposition: Observation Clinical Impression: Frequent falls, Weakness Condition: Stable Critical Care Time: No Referrals: ROWENA VIEYRA MD [Primary Care Provider] -
[2020-12-12 08:57] LABS: Absolute Neutrophil Ct (ANC) 6.37 (1.4-6.9); BASOPHIL % 0.5 % (0.0-0.4); Basophil (Absolute #) 0.04 (0-0.4); Eosinophil % 3.8 % (0.00-5.0); Eosinophil (Absolute #) 0.33 (0-0.5); Hemoglobin 14.8 gm/dl (12.5-18.0); Lymphocyte (Absolute #) 1.15 (1.0-4.6); Lymphocytes % 13.3 % (24.0-44.0); Mean Cell Volume 95.8 fl (78-100); Mean Corpuscular Hemoglobin 30.8 pg (26-32); Mean Corpuscular Hgb Concent. 32.2 g/dl (32-36); Mean Platelet Volume 9.1 fl (7.5-11.0); Monocyte (Absolute #) 0.73 (0.0-1.3); Monocytes % 8.5 % (0.0-12.0); Neutrophil % 73.9 % (36.0-66.0); Platelet Count 179 K/mm3 (150-450); Red Cell Distribution Width 15.7 % (11.5-14.0); White Blood Count 8.6 K/mm3 (4.0-10.5)
[2020-12-12] MEDS ORDERED: Sodium Chloride 0.9% 1000 ML 1,000 ML ONE (09:07)
[2020-12-12 09:14] LABS: INR 1.08 (0.8-3.0); PROTIME 12.7 SECONDS (9.4-12.5)
[2020-12-12 09:22] LABS: ALBUMIN 4.3 g/dL (3.5-5.0); ALKALINE PHOSPHATASE 95 U/L (38-126); AMYLASE 47 U/L (30-110); ANION GAP 21.4 MEQ/L (5-15); BLOOD UREA NITROGEN 22 mg/dL (9-20); CHLORIDE 99 mmol/L (98-107); Calcium 9.2 mg/dL (8.4-10.2); Carbon Dioxide 21 mmol/L (22-30); Creatinine 1 0.96 mg/dL (0.66-1.25); EST GLOMERULAR FILTRATION RATE > 60.0 ML/MIN; Glucose 183 mg/dL (74-106); LIPASE 28 U/L (23-300); Potassium 4.4 mmol/L (3.5-5.1); SGOT/AST 25 U/L (17-59); SGPT/ALT 14 U/L (0-50); SODIUM 136 mmol/L (137-145); Total Protein 7.2 g/dL (6.3-8.2)
[2020-12-12] MEDS ORDERED: Sodium Chloride 0.9% 1000 ML 1,000 ML IV SCH (11:45)
[2020-12-12 13:22] LABS: Appearance SLIGHTLY CLOUDY (CLEAR); Bacteria RARE /HPF (NEGATIVE); Bilirubin NEGATIVE (NEGATIVE); Blood MODERATE Ery/ul (0-5); Epithelial Cells RARE /HPF (FEW); Glucose >=500 mg/dL (NEGATIVE); Ketones MODERATE (NEGATIVE); Leukocyte Esterase TRACE (NEGATIVE); Nitrite NEGATIVE (NEGATIVE); Protein,Urine Dip 30 (Negative); Specific Gravity 1.031 (1.005-1.025); Urobilinogen NEGATIVE mg/dL (0-1); WBC 26-50 /HPF (0-5)
[2020-12-12] MEDS ORDERED: MEDICATION INTERVENTION MC SCH (17:00)
[2020-12-12] MEDS: Glucophage 500 MG PO SCH (17:07)
[2020-12-12] MEDS: Glucotrol 5 MG PO SCH (17:07)
--- NOTE | 2020-12-12 19:44 | PCM.HP ---
History of Present Illness - Chief Complaint Chief Complaint: Frequent falls, Weakness History of Present Illness: is a 85 year old male who fell at home this morning, he was weak and unable to get up and walk, he has had sepsis in the past with a UTI and was concerned he might have that again so came in, no fever, no dysuria, no cough, no diarrhea and no vomiting. He had his second dose of covid vaccine 2 days ago. - Review of Systems Constitutional: No Symptoms, Weakness Respiratory: No Cough, No Short Of Breath Cardiac: No Chest Pain, No Edema, No Syncope Abdominal/Gastrointestinal: No Abdominal Pain, No Nausea, No Vomiting, No Diarrhea Neurological: Dizziness, No Focal Weakness, No Gait Changes, No Headache, No Paralysis, No Parasthesia All Other Systems: Reviewed and Negative Medications & Allergies Home Medications: Home Medication List Atorvastatin Calcium [Lipitor 20MG Tablet] 20 mg PO HS 01/04/19 [History Confirmed 12/12/20] Clopidogrel Bisulfate [Clopidogrel] 75 mg PO DAILY 01/04/19 [History Confirmed 12/12/20] Glipizide/Metformin HCl [Glipizide-Metformin 5-500 mg] 1 each PO TID 01/04/19 [History Confirmed 12/12/20] Aspirin EC 81 mg [Ecotrin 81 mg] 81 mg PO DAILY 06/03/19 [History Confirmed 12/12/20] Cholecalciferol (Vitamin D3) [Vitamin D3] 1,000 unit PO DAILY 06/24/19 [History Confirmed 12/12/20] Multivitamin [Multiple Vitamins] 1 each PO DAILY 06/24/19 [History Confirmed 12/12/20] Carvedilol [Coreg] 3.125 mg PO BID 12/12/20 [History Confirmed 12/12/20] Digoxin 250 mcg PO DAILY 12/12/20 [History Confirmed 12/12/20] Empagliflozin [Jardiance] 25 mg PO DAILY 12/12/20 [History Confirmed 12/12/20] Allergies/Adverse Reactions: Allergies Allergy/AdvReac Type Severity Reaction Status Date / Time No Known Drug Allergies Allergy Verified 12/12/20 15:44 - Past Medical History Past Medical History: Yes Neurological History: No Pertinent History ENT History: Cataracts Cardiac History: Coronary Artery Disease Respiratory History: No Pertinent History Endocrine Medical History: Diabetes Type II Musculoskelatal History: No Pertinent History GI Medical History: No Pertinent History History: No Pertinent History Pyscho-Social History: No Pertinent History Male Reproductive Disorders: Prostate Problems Comment: back surgery (discectomy), 5 stents in heart(2015) - Past Surgical History Past Surgical History: Yes Neuro Surgical History: No Pertinent History Cardiac History: Cardiac Catheterization, Cardiac Stent Respiratory Surgery: No Pertinent History GI Surgical History: Appendectomy Genitourinary Surgical Hx: No Pertinent History Musculskeletal Surgical Hx: Other Male Surgical History: Prostate Surgery Other Surgical History: achilles tendon, back surgery - Social History Smoking Status: Never smoker Exposure to second hand smoke: No Alcohol: None Drug Use: none - Physical Exam Vital Signs: Vital Signs - 24 hr Temp Pulse Resp BP Pulse Ox 12/12/20 19:24 98.1 F 84 19 121/67 95 12/12/20 15:07 98.3 F 77 16 123/67 95 12/12/20 12:00 82 15 143/68 95 12/12/20 11:36 85 18 122/71 97 12/12/20 11:30 97 12/12/20 10:37 86 22 160/76 97 12/12/20 09:45 89 20 128/68 97 12/12/20 08:10 97.0 F 98 H 17 135/85 97 General Appearance: no apparent distress, alert Neurologic Exam: alert, oriented x 3, cooperative Respiratory Exam: normal breath sounds, lungs clear, No respiratory distress Cardiovascular Exam: regular rate/rhythm, normal heart sounds, normal peripheral pulses Gastrointestinal/Abdomen Exam: soft, normal bowel sounds, No tenderness, No mass Extremity Exam: normal inspection, normal range of motion, pelvis stable Skin Exam: normal color, warm, dry, No rash Results - Labs Lab/Micro Results: Lab Results-Last 24 Hours 12/12/20 12/12/20 12/12/20 Range/Units 08:28 08:45 08:45 WBC 8.6 (4.0-10.5) K/mm3 RBC 4.80 (4.1-5.6) M/mm3 Hgb 14.8 (12.5-18.0) gm/dl Hct 46.0 (42-50) % MCV 95.8 (78-100) fl MCH 30.8 (26-32) pg MCHC 32.2 (32-36) g/dl RDW 15.7 H (11.5-14.0) % Plt Count 179 (150-450) K/mm3 MPV 9.1 (7.5-11.0) fl Gran % 73.9 H (36.0-66.0) % Eos # (Auto) 0.33 (0-0.5) Absolute Lymphs (auto) 1.15 (1.0-4.6) Absolute Monos (auto) 0.73 (0.0-1.3) Lymphocytes % 13.3 L (24.0-44.0) % Monocytes % 8.5 (0.0-12.0) % Eosinophils % 3.8 (0.00-5.0) % Basophils % 0.5 (0.0-0.4) % Absolute Granulocytes 6.37 (1.4-6.9) Basophils # 0.04 (0-0.4) PT (9.4-12.5) SECONDS INR (0.8-3.0) Sodium 136 L (137-145) mmol/L Potassium 4.4 (3.5-5.1) mmol/L Chloride 99 (98-107) mmol/L Carbon Dioxide 21 L (22-30) mmol/L Anion Gap 21.4 H (5-15) MEQ/L BUN 22 H (9-20) mg/dL Creatinine 0.96 (0.66-1.25) mg/dL Estimated GFR > 60.0 ML/MIN Glucose 183 H (74-106) mg/dL Lactic Acid 1.6 (0.4-2.0) Calcium 9.2 (8.4-10.2) mg/dL Total Bilirubin 0.50 (0.2-1.3) mg/dL AST 25 (17-59) U/L ALT 14 (0-50) U/L Alkaline Phosphatase 95 (38-126) U/L Troponin I (0.000-0.034) ng/mL Serum Total Protein 7.2 (6.3-8.2) g/dL Albumin 4.3 (3.5-5.0) g/dL Amylase 47 (30-110) U/L Lipase 28 (23-300) U/L Urine Color (YELLOW) Urine Appearance (CLEAR) Urine pH (5-6) Ur Specific [place] (1.005-1.025) Urine Protein (Negative) Urine Ketones (NEGATIVE) Urine Blood (0-5) Bronson/ul Urine Nitrite (NEGATIVE) Urine Bilirubin (NEGATIVE) Urine Urobilinogen (0-1) mg/dL Ur Leukocyte Esterase (NEGATIVE) Urine WBC (Auto) (0-5) /HPF Urine RBC (Auto) (0-2) /HPF U Epithel Cells (Auto) (FEW) /HPF Urine Bacteria (Auto) (NEGATIVE) /HPF Urine Culture Reflexed (NO) Urine Glucose (NEGATIVE) mg/dL Digoxin (0.8-1.9) ng/mL SARS-CoV-2 (PCR) (NEGATIVE) 12/12/20 12/12/20 12/12/20 Range/Units 08:45 08:45 08:45 WBC (4.0-10.5) K/mm3 RBC (4.1-5.6) M/mm3 Hgb (12.5-18.0) gm/dl Hct (42-50) % MCV (78-100) fl MCH (26-32) pg MCHC (32-36) g/dl RDW (11.5-14.0) % Plt Count (150-450) K/mm3 MPV (7.5-11.0) fl Gran % (36.0-66.0) % Eos # (Auto) (0-0.5) Absolute Lymphs (auto) (1.0-4.6) Absolute Monos (auto) (0.0-1.3) Lymphocytes % (24.0-44.0) % Monocytes % (0.0-12.0) % Eosinophils % (0.00-5.0) % Basophils % (0.0-0.4) % Absolute Granulocytes (1.4-6.9) Basophils # (0-0.4) PT 12.7 H (9.4-12.5) SECONDS INR 1.08 (0.8-3.0) Sodium (137-145) mmol/L Potassium (3.5-5.1) mmol/L Chloride (98-107) mmol/L Carbon Dioxide (22-30) mmol/L Anion Gap (5-15) MEQ/L BUN (9-20) mg/dL Creatinine (0.66-1.25) mg/dL Estimated GFR ML/MIN Glucose (74-106) mg/dL Lactic Acid (0.4-2.0) Calcium (8.4-10.2) mg/dL Total Bilirubin (0.2-1.3) mg/dL AST (17-59) U/L ALT (0-50) U/L Alkaline Phosphatase (38-126) U/L Troponin I < 0.012 (0.000-0.034) ng/mL Serum Total Protein (6.3-8.2) g/dL Albumin (3.5-5.0) g/dL Amylase (30-110) U/L Lipase (23-300) U/L Urine Color (YELLOW) Urine Appearance (CLEAR) Urine pH (5-6) Ur Specific [place] (1.005-1.025) Urine Protein (Negative) Urine Ketones (NEGATIVE) Urine Blood (0-5) Bronson/ul Urine Nitrite (NEGATIVE) Urine Bilirubin (NEGATIVE) Urine Urobilinogen (0-1) mg/dL Ur Leukocyte Esterase (NEGATIVE) Urine WBC (Auto) (0-5) /HPF Urine RBC (Auto) (0-2) /HPF U Epithel Cells (Auto) (FEW) /HPF Urine Bacteria (Auto) (NEGATIVE) /HPF Urine Culture Reflexed (NO) Urine Glucose (NEGATIVE) mg/dL Digoxin 1.0 (0.8-1.9) ng/mL SARS-CoV-2 (PCR) (NEGATIVE) 12/12/20 12/12/20 12/12/20 Range/Units 11:20 11:56 11:58 WBC (4.0-10.5) K/mm3 RBC (4.1-5.6) M/mm3 Hgb (12.5-18.0) gm/dl Hct (42-50) % MCV (78-100) fl MCH (26-32) pg MCHC (32-36) g/dl RDW (11.5-14.0) % Plt Count (150-450) K/mm3 MPV (7.5-11.0) fl Gran % (36.0-66.0) % Eos # (Auto) (0-0.5) Absolute Lymphs (auto) (1.0-4.6) Absolute Monos (auto) (0.0-1.3) Lymphocytes % (24.0-44.0) % Monocytes % (0.0-12.0) % Eosinophils % (0.00-5.0) % Basophils % (0.0-0.4) % Absolute Granulocytes (1.4-6.9) Basophils # (0-0.4) PT (9.4-12.5) SECONDS INR (0.8-3.0) Sodium (137-145) mmol/L Potassium (3.5-5.1) mmol/L Chloride (98-107) mmol/L Carbon Dioxide (22-30) mmol/L Anion Gap (5-15) MEQ/L BUN (9-20) mg/dL Creatinine (0.66-1.25) mg/dL Estimated GFR ML/MIN Glucose (74-106) mg/dL Lactic Acid (0.4-2.0) Calcium (8.4-10.2) mg/dL Total Bilirubin (0.2-1.3) mg/dL AST (17-59) U/L ALT (0-50) U/L Alkaline Phosphatase (38-126) U/L Troponin I < 0.012 (0.000-0.034) ng/mL Serum Total Protein (6.3-8.2) g/dL Albumin (3.5-5.0) g/dL Amylase (30-110) U/L Lipase (23-300) U/L Urine Color YELLOW (YELLOW) Urine Appearance SLIGHTLY CLOUDY (CLEAR) Urine pH 5.0 (5-6) Ur Specific [place] 1.031 (1.005-1.025) Urine Protein 30 (Negative) Urine Ketones MODERATE (NEGATIVE) Urine Blood MODERATE (0-5) Bronson/ul Urine Nitrite NEGATIVE (NEGATIVE) Urine Bilirubin NEGATIVE (NEGATIVE) Urine Urobilinogen NEGATIVE (0-1) mg/dL Ur Leukocyte Esterase TRACE (NEGATIVE) Urine WBC (Auto) 26-50 (0-5) /HPF Urine RBC (Auto) 6-10 (0-2) /HPF U Epithel Cells (Auto) RARE (FEW) /HPF Urine Bacteria (Auto) RARE (NEGATIVE) /HPF Urine Culture Reflexed YES (NO) Urine Glucose >=500 (NEGATIVE) mg/dL Digoxin (0.8-1.9) ng/mL SARS-CoV-2 (PCR) NEGATIVE (NEGATIVE) 12/12/20 Range/Units 14:43 WBC (4.0-10.5) K/mm3 RBC (4.1-5.6) M/mm3 Hgb (12.5-18.0) gm/dl Hct (42-50) % MCV (78-100) fl MCH (26-32) pg MCHC (32-36) g/dl RDW (11.5-14.0) % Plt Count (150-450) K/mm3 MPV (7.5-11.0) fl Gran % (36.0-66.0) % Eos # (Auto) (0-0.5) Absolute Lymphs (auto) (1.0-4.6) Absolute Monos (auto) (0.0-1.3) Lymphocytes % (24.0-44.0) % Monocytes % (0.0-12.0) % Eosinophils % (0.00-5.0) % Basophils % (0.0-0.4) % Absolute Granulocytes (1.4-6.9) Basophils # (0-0.4) PT (9.4-12.5) SECONDS INR (0.8-3.0) Sodium (137-145) mmol/L Potassium (3.5-5.1) mmol/L Chloride (98-107) mmol/L Carbon Dioxide (22-30) mmol/L Anion Gap (5-15) MEQ/L BUN (9-20) mg/dL Creatinine (0.66-1.25) mg/dL Estimated GFR ML/MIN Glucose (74-106) mg/dL Lactic Acid (0.4-2.0) Calcium (8.4-10.2) mg/dL Total Bilirubin (0.2-1.3) mg/dL AST (17-59) U/L ALT (0-50) U/L Alkaline Phosphatase (38-126) U/L Troponin I < 0.012 (0.000-0.034) ng/mL Serum Total Protein (6.3-8.2) g/dL Albumin (3.5-5.0) g/dL Amylase (30-110) U/L Lipase (23-300) U/L Urine Color (YELLOW) Urine Appearance (CLEAR) Urine pH (5-6) Ur Specific [place] (1.005-1.025) Urine Protein (Negative) Urine Ketones (NEGATIVE) Urine Blood (0-5) Bronson/ul Urine Nitrite (NEGATIVE) Urine Bilirubin (NEGATIVE) Urine Urobilinogen (0-1) mg/dL Ur Leukocyte Esterase (NEGATIVE) Urine WBC (Auto) (0-5) /HPF Urine RBC (Auto) (0-2) /HPF U Epithel Cells (Auto) (FEW) /HPF Urine Bacteria (Auto) (NEGATIVE) /HPF Urine Culture Reflexed (NO) Urine Glucose (NEGATIVE) mg/dL Digoxin (0.8-1.9) ng/mL SARS-CoV-2 (PCR) (NEGATIVE) - Radiology Impressions Radiology Exams & Impressions: Radiology Procedures Category Date Time Status CHEST 1 VIEW (PORTABLE) Stat Exams 12/12/20 08:29 Taken HEAD WITHOUT CONTRAST [CT] Stat Exams 12/12/20 08:32 Taken Assessment/Plan (1) Dehydration Current Visit: Yes Status: Acute Assessment & Plan: d/c jardiance, ketonuria noted Code(s): E86.0 - DEHYDRATION (2) Weakness Current Visit: Yes Status: Acute Assessment & Plan: moderate ketones in urine points toward dehydration, will d/c jardiance as patient states he has normal po intake, no vomiting or diarrhea or other sources of volume loss Code(s): R53.1 - WEAKNESS (3) Frequent falls Current Visit: Yes Status: Acute Code(s): R29.6 - REPEATED FALLS (4) Diabetes mellitus Current Visit: No Status: Acute Code(s): E11.9 - TYPE 2 DIABETES MELLITUS WITHOUT COMPLICATIONS
[2020-12-12] MEDS ORDERED: Sodium Chloride 0.9% W/ 20 mEq KCl/LITER 1,000 ML IV SCH (19:45)
--- NOTE | 2020-12-12 19:57 | XRAY ---
Indication: Status post fall. Multiple contiguous axial images obtained through the head without contrast. Comparison: May 13, 2020. There is again age-appropriate global atrophy, mild periventricular degenerative micro-ischemia bilaterally, and right basal ganglia remote lacunar infarct. No acute intracranial hemorrhage, abnormal extra-axial fluid collection, or mass effect. Fourth ventricle is midline without hydrocephalus. Bony calvarium intact. Visualized paranasal sinuses and mastoid air cells are clear. Impression: Again nonacute senile brain with remote right basal ganglial lacunar infarct. Comment: Preliminary interpretation was made by [facility]. No critical discrepancy.
--- NOTE | 2020-12-12 19:59 | XRAY ---
Indication: Weakness. Comparison: May 13, 2020. Portable chest less inflated with new lingula and right base subsegmental atelectasis/scarring. Remaining heart and lungs unremarkable again with incidental calcified granulomas. Bony thorax intact again with osteopenia and degenerative changes. Impression: Continued nonacute chest with chronic features.
[2020-12-12] MEDS ORDERED: ZOCOR 20MG PO SCH (22:00)
[2020-12-12] MEDS ORDERED: METFORMIN HCL PO SCH (22:00)
[2020-12-12] MEDS ORDERED: NON-FORMULARY ITEM (Atorvastatin Calcium 20 MG) PO SCH (22:00)
[2020-12-12] MEDS ORDERED: Coreg 3.125 MG PO SCH (22:00)
[2020-12-12] MEDS ORDERED: GLIPIZIDE PO SCH (22:00)
[2020-12-13 04:01] VITALS: PULSE 72
[2020-12-13 06:37] LABS: BASOPHIL % 0.7 % (0.0-0.4); Basophil (Absolute #) 0.04 (0-0.4); Eosinophil % 11.4 % (0.00-5.0); Hematocrit 39.6 % (42-50); Hemoglobin 12.4 gm/dl (12.5-18.0); Lymphocyte (Absolute #) 1.24 (1.0-4.6); Lymphocytes % 20.2 % (24.0-44.0); Mean Cell Volume 96.6 fl (78-100); Mean Corpuscular Hemoglobin 30.2 pg (26-32); Mean Corpuscular Hgb Concent. 31.3 g/dl (32-36); Mean Platelet Volume 9.1 fl (7.5-11.0); Monocyte (Absolute #) 0.76 (0.0-1.3); Monocytes % 12.4 % (0.0-12.0); Neutrophil % 55.3 % (36.0-66.0); Platelet Count 165 K/mm3 (150-450); Red Cell Distribution Width 15.5 % (11.5-14.0); White Blood Count 6.1 K/mm3 (4.0-10.5)
[2020-12-13 06:45] LABS: ALBUMIN 3.4 g/dL (3.5-5.0); ALKALINE PHOSPHATASE 82 U/L (38-126); ANION GAP 12.5 MEQ/L (5-15); BLOOD UREA NITROGEN 26 mg/dL (9-20); CHLORIDE 101 mmol/L (98-107); Calcium 8.3 mg/dL (8.4-10.2); Carbon Dioxide 27 mmol/L (22-30); Creatinine 1 0.91 mg/dL (0.66-1.25); EST GLOMERULAR FILTRATION RATE > 60.0 ML/MIN; Glucose 171 mg/dL (74-106); Potassium 4.2 mmol/L (3.5-5.1); SGOT/AST 26 U/L (17-59); SGPT/ALT 13 U/L (0-50); SODIUM 136 mmol/L (137-145)
[2020-12-13 08:38] VITALS: BP 131/65; O2SAT 98
--- NOTE | 2020-12-13 08:44 | PCM.DS ---
Discharge Summary Date of Admission: 12/12/20 14:48 Admitting Physician: ROWENA VIEYRA Primary Care Provider: ROWENA VIEYRA Allergies Allergies No Known Drug Allergies Allergy (Verified 12/12/20 15:44) Hospital Summary - Hospital Course Hospital Course: patient was admitted with falls and dehydration, found to have significant ketonuria on arrival, no vomiting or diarrhea, decided to d/c jardiance. after receiving hydration he is back to baseline and able to ambulate and ready to go home - Vitals & Intake/Output Vital Signs: Vital Signs Temperature 98.3 F 12/13/20 08:00 Pulse Rate 72 12/13/20 08:00 Respiratory Rate 18 12/13/20 08:00 Blood Pressure 131/65 12/13/20 08:00 O2 Sat by Pulse Oximetry 98 12/13/20 08:00 Intake & Output: Intake & Output 12/10/20 12/11/20 12/12/20 12/13/20 11:59 11:59 11:59 11:59 Intake Total 480 Output Total 475 Balance 5 Weight 85.275 kg 85 kg - Lab Result Diagrams: 12/13/20 05:59 12/13/20 05:59 Lab Results-Last 24 Hrs: Lab Results-Last 24 Hours 12/12/20 12/12/20 12/12/20 Range/Units 08:28 08:45 08:45 WBC 8.6 (4.0-10.5) K/mm3 RBC 4.80 (4.1-5.6) M/mm3 Hgb 14.8 (12.5-18.0) gm/dl Hct 46.0 (42-50) % MCV 95.8 (78-100) fl MCH 30.8 (26-32) pg MCHC 32.2 (32-36) g/dl RDW 15.7 H (11.5-14.0) % Plt Count 179 (150-450) K/mm3 MPV 9.1 (7.5-11.0) fl Gran % 73.9 H (36.0-66.0) % Eos # (Auto) 0.33 (0-0.5) Absolute Lymphs (auto) 1.15 (1.0-4.6) Absolute Monos (auto) 0.73 (0.0-1.3) Lymphocytes % 13.3 L (24.0-44.0) % Monocytes % 8.5 (0.0-12.0) % Eosinophils % 3.8 (0.00-5.0) % Basophils % 0.5 (0.0-0.4) % Absolute Granulocytes 6.37 (1.4-6.9) Basophils # 0.04 (0-0.4) PT (9.4-12.5) SECONDS INR (0.8-3.0) Sodium 136 L (137-145) mmol/L Potassium 4.4 (3.5-5.1) mmol/L Chloride 99 (98-107) mmol/L Carbon Dioxide 21 L (22-30) mmol/L Anion Gap 21.4 H (5-15) MEQ/L BUN 22 H (9-20) mg/dL Creatinine 0.96 (0.66-1.25) mg/dL Estimated GFR > 60.0 ML/MIN Glucose 183 H (74-106) mg/dL Lactic Acid 1.6 (0.4-2.0) Calcium 9.2 (8.4-10.2) mg/dL Total Bilirubin 0.50 (0.2-1.3) mg/dL AST 25 (17-59) U/L ALT 14 (0-50) U/L Alkaline Phosphatase 95 (38-126) U/L Troponin I (0.000-0.034) ng/mL Serum Total Protein 7.2 (6.3-8.2) g/dL Albumin 4.3 (3.5-5.0) g/dL Amylase 47 (30-110) U/L Lipase 28 (23-300) U/L Urine Color (YELLOW) Urine Appearance (CLEAR) Urine pH (5-6) Ur Specific Pala (1.005-1.025) Urine Protein (Negative) Urine Ketones (NEGATIVE) Urine Blood (0-5) Bronson/ul Urine Nitrite (NEGATIVE) Urine Bilirubin (NEGATIVE) Urine Urobilinogen (0-1) mg/dL Ur Leukocyte Esterase (NEGATIVE) Urine WBC (Auto) (0-5) /HPF Urine RBC (Auto) (0-2) /HPF U Epithel Cells (Auto) (FEW) /HPF Urine Bacteria (Auto) (NEGATIVE) /HPF Urine Culture Reflexed (NO) Urine Glucose (NEGATIVE) mg/dL Digoxin (0.8-1.9) ng/mL SARS-CoV-2 (PCR) (NEGATIVE) 12/12/20 12/12/20 12/12/20 Range/Units 08:45 08:45 08:45 WBC (4.0-10.5) K/mm3 RBC (4.1-5.6) M/mm3 Hgb (12.5-18.0) gm/dl Hct (42-50) % MCV (78-100) fl MCH (26-32) pg MCHC (32-36) g/dl RDW (11.5-14.0) % Plt Count (150-450) K/mm3 MPV (7.5-11.0) fl Gran % (36.0-66.0) % Eos # (Auto) (0-0.5) Absolute Lymphs (auto) (1.0-4.6) Absolute Monos (auto) (0.0-1.3) Lymphocytes % (24.0-44.0) % Monocytes % (0.0-12.0) % Eosinophils % (0.00-5.0) % Basophils % (0.0-0.4) % Absolute Granulocytes (1.4-6.9) Basophils # (0-0.4) PT 12.7 H (9.4-12.5) SECONDS INR 1.08 (0.8-3.0) Sodium (137-145) mmol/L Potassium (3.5-5.1) mmol/L Chloride (98-107) mmol/L Carbon Dioxide (22-30) mmol/L Anion Gap (5-15) MEQ/L BUN (9-20) mg/dL Creatinine (0.66-1.25) mg/dL Estimated GFR ML/MIN Glucose (74-106) mg/dL Lactic Acid (0.4-2.0) Calcium (8.4-10.2) mg/dL Total Bilirubin (0.2-1.3) mg/dL AST (17-59) U/L ALT (0-50) U/L Alkaline Phosphatase (38-126) U/L Troponin I < 0.012 (0.000-0.034) ng/mL Serum Total Protein (6.3-8.2) g/dL Albumin (3.5-5.0) g/dL Amylase (30-110) U/L Lipase (23-300) U/L Urine Color (YELLOW) Urine Appearance (CLEAR) Urine pH (5-6) Ur Specific Pala (1.005-1.025) Urine Protein (Negative) Urine Ketones (NEGATIVE) Urine Blood (0-5) Bronson/ul Urine Nitrite (NEGATIVE) Urine Bilirubin (NEGATIVE) Urine Urobilinogen (0-1) mg/dL Ur Leukocyte Esterase (NEGATIVE) Urine WBC (Auto) (0-5) /HPF Urine RBC (Auto) (0-2) /HPF U Epithel Cells (Auto) (FEW) /HPF Urine Bacteria (Auto) (NEGATIVE) /HPF Urine Culture Reflexed (NO) Urine Glucose (NEGATIVE) mg/dL Digoxin 1.0 (0.8-1.9) ng/mL SARS-CoV-2 (PCR) (NEGATIVE) 12/12/20 12/12/20 12/12/20 Range/Units 11:20 11:56 11:58 WBC (4.0-10.5) K/mm3 RBC (4.1-5.6) M/mm3 Hgb (12.5-18.0) gm/dl Hct (42-50) % MCV (78-100) fl MCH (26-32) pg MCHC (32-36) g/dl RDW (11.5-14.0) % Plt Count (150-450) K/mm3 MPV (7.5-11.0) fl Gran % (36.0-66.0) % Eos # (Auto) (0-0.5) Absolute Lymphs (auto) (1.0-4.6) Absolute Monos (auto) (0.0-1.3) Lymphocytes % (24.0-44.0) % Monocytes % (0.0-12.0) % Eosinophils % (0.00-5.0) % Basophils % (0.0-0.4) % Absolute Granulocytes (1.4-6.9) Basophils # (0-0.4) PT (9.4-12.5) SECONDS INR (0.8-3.0) Sodium (137-145) mmol/L Potassium (3.5-5.1) mmol/L Chloride (98-107) mmol/L Carbon Dioxide (22-30) mmol/L Anion Gap (5-15) MEQ/L BUN (9-20) mg/dL Creatinine (0.66-1.25) mg/dL Estimated GFR ML/MIN Glucose (74-106) mg/dL Lactic Acid (0.4-2.0) Calcium (8.4-10.2) mg/dL Total Bilirubin (0.2-1.3) mg/dL AST (17-59) U/L ALT (0-50) U/L Alkaline Phosphatase (38-126) U/L Troponin I < 0.012 (0.000-0.034) ng/mL Serum Total Protein (6.3-8.2) g/dL Albumin (3.5-5.0) g/dL Amylase (30-110) U/L Lipase (23-300) U/L Urine Color YELLOW (YELLOW) Urine Appearance SLIGHTLY CLOUDY (CLEAR) Urine pH 5.0 (5-6) Ur Specific Pala 1.031 (1.005-1.025) Urine Protein 30 (Negative) Urine Ketones MODERATE (NEGATIVE) Urine Blood MODERATE (0-5) Bronson/ul Urine Nitrite NEGATIVE (NEGATIVE) Urine Bilirubin NEGATIVE (NEGATIVE) Urine Urobilinogen NEGATIVE (0-1) mg/dL Ur Leukocyte Esterase TRACE (NEGATIVE) Urine WBC (Auto) 26-50 (0-5) /HPF Urine RBC (Auto) 6-10 (0-2) /HPF U Epithel Cells (Auto) RARE (FEW) /HPF Urine Bacteria (Auto) RARE (NEGATIVE) /HPF Urine Culture Reflexed YES (NO) Urine Glucose >=500 (NEGATIVE) mg/dL Digoxin (0.8-1.9) ng/mL SARS-CoV-2 (PCR) NEGATIVE (NEGATIVE) 12/12/20 12/13/20 12/13/20 Range/Units 14:43 05:59 05:59 WBC 6.1 (4.0-10.5) K/mm3 RBC 4.10 (4.1-5.6) M/mm3 Hgb 12.4 L (12.5-18.0) gm/dl Hct 39.6 L (42-50) % MCV 96.6 (78-100) fl MCH 30.2 (26-32) pg MCHC 31.3 L (32-36) g/dl RDW 15.5 H (11.5-14.0) % Plt Count 165 (150-450) K/mm3 MPV 9.1 (7.5-11.0) fl Gran % 55.3 (36.0-66.0) % Eos # (Auto) 0.70 H (0-0.5) Absolute Lymphs (auto) 1.24 (1.0-4.6) Absolute Monos (auto) 0.76 (0.0-1.3) Lymphocytes % 20.2 L (24.0-44.0) % Monocytes % 12.4 H (0.0-12.0) % Eosinophils % 11.4 H (0.00-5.0) % Basophils % 0.7 (0.0-0.4) % Absolute Granulocytes 3.40 (1.4-6.9) Basophils # 0.04 (0-0.4) PT (9.4-12.5) SECONDS INR (0.8-3.0) Sodium 136 L (137-145) mmol/L Potassium 4.2 (3.5-5.1) mmol/L Chloride 101 (98-107) mmol/L Carbon Dioxide 27 (22-30) mmol/L Anion Gap 12.5 (5-15) MEQ/L BUN 26 H (9-20) mg/dL Creatinine 0.91 (0.66-1.25) mg/dL Estimated GFR > 60.0 ML/MIN Glucose 171 H (74-106) mg/dL Lactic Acid (0.4-2.0) Calcium 8.3 L (8.4-10.2) mg/dL Total Bilirubin 0.20 (0.2-1.3) mg/dL AST 26 (17-59) U/L ALT 13 (0-50) U/L Alkaline Phosphatase 82 (38-126) U/L Troponin I < 0.012 (0.000-0.034) ng/mL Serum Total Protein 6.0 L (6.3-8.2) g/dL Albumin 3.4 L (3.5-5.0) g/dL Amylase (30-110) U/L Lipase (23-300) U/L Urine Color (YELLOW) Urine Appearance (CLEAR) Urine pH (5-6) Ur Specific Pala (1.005-1.025) Urine Protein (Negative) Urine Ketones (NEGATIVE) Urine Blood (0-5) Bronson/ul Urine Nitrite (NEGATIVE) Urine Bilirubin (NEGATIVE) Urine Urobilinogen (0-1) mg/dL Ur Leukocyte Esterase (NEGATIVE) Urine WBC (Auto) (0-5) /HPF Urine RBC (Auto) (0-2) /HPF U Epithel Cells (Auto) (FEW) /HPF Urine Bacteria (Auto) (NEGATIVE) /HPF Urine Culture Reflexed (NO) Urine Glucose (NEGATIVE) mg/dL Digoxin (0.8-1.9) ng/mL SARS-CoV-2 (PCR) (NEGATIVE) - Radiology Exams Ordered Rad Exams-Entire Visit: Radiology Procedures Category Date Time Status CHEST 1 VIEW (PORTABLE) Stat Exams 12/12/20 08:29 Completed HEAD WITHOUT CONTRAST [CT] Stat Exams 12/12/20 08:32 Completed - Procedures and Test Procedures and Tests throughout Hospitalization: Therapy Orders & Screens 12/12/20 11:36 PT Eval & Treat ( Order) ONCE Reason for Eval:: Weakness freq falls Diagnosis: Freq Falls Discharge Exam General Appearance: no apparent distress, alert Neurologic Exam: alert, oriented x 3 Respiratory Exam: normal breath sounds, lungs clear, No respiratory distress Cardiovascular Exam: regular rate/rhythm, normal heart sounds Gastrointestinal/Abdomen Exam: soft, No tenderness, No mass Extremity Exam: normal inspection, normal range of motion Skin Exam: normal color, warm, dry Final Diagnosis/Problem List - Final Discharge Diagnosis/Problem (1) Dehydration Current Visit: Yes Status: Acute Assessment & Plan: d/c jardiance Code(s): E86.0 - DEHYDRATION (2) Weakness Current Visit: Yes Status: Acute Code(s): R53.1 - WEAKNESS (3) Frequent falls Current Visit: Yes Status: Acute Code(s): R29.6 - REPEATED FALLS (4) Diabetes mellitus Current Visit: No Status: Acute Code(s): E11.9 - TYPE 2 DIABETES MELLITUS WITHOUT COMPLICATIONS - Discharge Disposition: Home, Self-Care Condition: Stable Prescriptions: Continue Glipizide/Metformin HCl [Glipizide-Metformin 5-500 mg] 1 each PO TID Atorvastatin Calcium [Lipitor 20MG Tablet] 20 mg PO HS Clopidogrel Bisulfate [Clopidogrel] 75 mg PO DAILY Aspirin EC 81 mg [Ecotrin 81 mg] 81 mg PO DAILY Cholecalciferol (Vitamin D3) [Vitamin D3] 1,000 unit PO DAILY Multivitamin [Multiple Vitamins] 1 each PO DAILY Digoxin 250 mcg PO DAILY Carvedilol [Coreg] 3.125 mg PO BID Discontinued Empagliflozin [Jardiance] 25 mg PO DAILY Follow up with: ROWENA VIEYRA MD [Primary Care Provider] - 1 Week
[2020-12-13] MEDS: Glucophage 500 MG PO SCH (08:51)
[2020-12-13] MEDS: Glucotrol 5 MG PO SCH (08:51)
[2020-12-13] MEDS ORDERED: THERAGRAN MULTIVITAMIN PO SCH (10:00)
[2020-12-13] MEDS ORDERED: ECOTRIN 81 MG PO SCH (10:00)
[2020-12-13] MEDS ORDERED: NON-FORMULARY ITEM (Empagliflozin [Jardiance] 25 MG) PO SCH (10:00)
[2020-12-13] MEDS ORDERED: VITAMIN D PO SCH (10:00)
[2020-12-13] MEDS ORDERED: Lanoxin 0.125MG TABLET PO SCH (10:00)
[2020-12-13] MEDS ORDERED: NON-FORMULARY ITEM (Cholecalciferol (Vitamin D3) [Vitamin D3] 1,000 UNIT) PO SCH (10:00)
[2020-12-13] MEDS ORDERED: NON-FORMULARY ITEM (Multivitamin [Multiple Vitamins] 1 EACH) PO SCH (10:00)
[2020-12-13] MEDS ORDERED: PLAVIX 75 MG Tablet PO SCH (10:00)
[2020-12-13] MEDS ORDERED: DIGOXIN 250 MCG PO SCH (10:00)
== END 2020-12-13 10:27 | disposition home or self-care (01) ==
LOC: ED 08:02 → MED SURG 14:48
PROVIDERS: ADMIT Family Medicine; ATTEND Family Medicine
DX: E86.0 Dehydration (principal); R42 Dizziness and giddiness; R53.1 Weakness; R51.9 Headache, unspecified; Z79.899 Other long term (current) drug therapy; E11.9 Type 2 diabetes mellitus without complications; R29.6 Repeated falls; Z20.828 Contact with and (suspected) exposure to other viral communicable diseases; Z86.79 Personal history of other diseases of the circulatory system
CPT/HCPCS: 36000; 36415; 70450; 71045; 80053; 80162; 81001; 82150; 83605; 83690; 84484; 85025; 85610; 87040; 87086; 93005; 93268; 96374; 99285; G0378; U0003; A9270-GY

== ENCOUNTER 2021-04-24 15:29 | Observation (INO) | payer MEDICARE ==
[2021-04-24] MEDS ORDERED: Adacel Vial IM ONE (15:34)
--- NOTE | 2021-04-24 16:04 | ERPHSYRPT ---
- History of Present Illness Time Seen by Provider: 04/24/21 15:33 Source: patient, family Exam Limitations: no limitations Patient Subjective Stated Complaint: Head injury Triage Nursing Assessment: Patient brought into ED via w/c and transferred to bed with assist of 1. Patient A+O X3. Patient's skin pink, warm and dry. Patient states one hour prior to coming to ED he fell at [facility] while walking up the curb. Patient states he fell landing on lalo knees and hitting back of head. Patient has 2 cm X 1cm abrasion to back of head. Patient denies dizziness, N/V or pain. Blood sugar noted to be 275. Physician History: 85 years old male with history of hypertension, hyperlipidemia, congestive heart failure presented to the ER with chief complaint of fall and head injury. Patient reports he was walking into [facility] and probably tripped and fell backward hitting his head against the concrete. No loss of consciousness. He is complaining of mild dull aching headache in the occipital area. No neck pain. No numbness tingling or focal weakness. Denies any visual symptoms. No difficulty speech. Patient denies having any chest pain palpitations shortness of breath, feeling dizzy lightheaded before or after the fall. His son was called by bystanders and patient was not willing to come to hospital and wanted to go home as this happened almost an hour ago. Son noticed when he arrived at the scene patient was in his car on the courtesy car driver's seat and when he walked to the other car he was having hard time walking. Patient does report having generalized weakness but no focal weakness. No fever chills or sick contact reported. Patient also reports feeling weak and tired for the last couple of days. Patient also reports cutting/trimming his toenails with some swelling and blistering of left big toe area with redness and some pain on movement. Occurred: hours ago (1) Severity: moderate Head Injury Location: occipital Method of Injury: fell Loss of Consciousness: no loss of consciousness Associated Symptoms: denies symptoms Allergies/Adverse Reactions: No Known Drug Allergies Allergy (Verified 04/24/21 15:31) Home Medications: Aspirin EC 81 mg [Ecotrin 81 mg] 81 mg PO DAILY 04/25/21 [History] Atorvastatin Calcium 20 mg PO HS 04/25/21 [History] Carvedilol 3.125 mg [Coreg 3.125 MG] 3.125 mg PO BID 04/25/21 [History] Cholecalciferol (Vitamin D3) [Vitamin D3] 1 tab PO DAILY 04/25/21 [History] Clopidogrel Bisulfate 75 mg [PLAVIX 75 MG Tablet] 75 mg PO DAILY 04/25/21 [History] Digoxin 250 mcg PO DAILY 04/25/21 [History] Dulaglutide [Trulicity] 3 mg SQ WEEKLY 04/25/21 [History] Empagliflozin [Jardiance] 25 mg PO DAILY 04/25/21 [History] Gabapentin 300 mg [Neurontin 300 mg] 300 mg PO TID 04/25/21 [History] Glipizide/Metformin HCl [Glipizide-Metformin 5-500 mg] 1 tablet PO TID 04/25/21 [History] Mirabegron [Myrbetriq] 50 mg PO DAILY 04/25/21 [History] Multivitamin 1 tablet PO DAILY 04/25/21 [History] Hx Tetanus, Diphtheria Vaccination/Date Given: Yes Hx Influenza Vaccination/Date Given: Yes Hx Pneumococcal Vaccination/Date Given: Yes Travel Risk - International Travel Have you traveled outside of the country in past 3 weeks: No - Coronavirus Screening Are you exhibiting any of the following symptoms?: No Close contact with a COVID-19 positive Pt in past 14-21 Days: No - Vaccine Status Have you recieved a Covid-19 vaccination: Yes 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 - Vaccination Dates Date of 2cond Vaccination (if applicable): na - Review of Systems Constitutional: No Symptoms Eyes: No Symptoms Ears, Nose, & Throat: No Symptoms Respiratory: No Symptoms Cardiac: No Symptoms Abdominal/Gastrointestinal: No Symptoms Genitourinary Symptoms: No Symptoms Musculoskeletal: No Symptoms Skin: No Symptoms Neurological: Headache Psychological: No Symptoms Endocrine: No Symptoms Hematologic/Lymphatic: No Symptoms Immunological/Allergic: No Symptoms - Past Medical History Pertinent Past Medical History: Yes Neurological History: No Pertinent History ENT History: Cataracts Cardiac History: Coronary Artery Disease Respiratory History: No Pertinent History Endocrine Medical History: Diabetes Type II Musculoskeletal History: No Pertinent History GI Medical History: No Pertinent History History: No Pertinent History Psycho-Social History: No Pertinent History Male Reproductive Disorders: Prostate Problems Other Medical History: back surgery (discectomy), 5 stents in heart(2014) - Past Surgical History Past Surgical History: Yes Neuro Surgical History: No Pertinent History Cardiac: Cardiac Catheterization, Cardiac Stent Respiratory: No Pertinent History Gastrointestinal: Appendectomy Genitourinary: No Pertinent History Musculoskeletal: Other Male Surgical History: Prostate Surgery Other Surgical History: achilles tendon, back surgery - Social History Smoking Status: Never smoker Exposure to second hand smoke: No Drug Use: none Patient Lives Alone: No - Nursing Vital Signs Nursing Vital Signs: Initial Vital Signs Temperature 99.8 F 04/24/21 15:32 Pulse Rate 117 H 04/24/21 15:32 Respiratory Rate 19 04/24/21 15:32 Blood Pressure 148/86 04/24/21 15:32 O2 Sat by Pulse Oximetry 95 04/24/21 15:32 Pain Scale Pain Intensity 0 - [place] Coma Score Best Eye Response ([place]): (4) open spontaneously Best Verbal Response ([place]): (5) oriented Best Motor Response ([place]): (6) obeys commands [place] Total: 15 - Physical Exam General Appearance: no apparent distress Head Injury: contusions (Mid occipitoparietal area), ecchymosis, swelling, tenderness (Minimal tenderness in occipital region with area of laceration without any step in deformity.), No active bleeding, No raccoon eyes Eye Exam: bilateral eye: normal inspection, PERRL, EOMI ENT Exam: airway nml, No evidence of ENT injury, No dental injury Neck Exam: supple, trachea midline, full range of motion, normal alignment, normal inspection, No focal neuro deficit, No muscle spasm, No stiff neck, No tenderness Cardiovascular/Respiratory Exam: chest non-tender, normal breath sounds, heart sounds normal, tachycardia Gastrointestinal/Abdominal Exam: soft, non tender, no distention Back Exam: normal inspection, normal range of motion, No CVA tenderness Extremity Exam: non-tender, normal range of motion, normal inspection, normal capillary refill, inflammation (Left big toe medial aspect blister with erythema redness of big toe and streaking on the foot and scattered redness of left calf area. 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 Exam: normal hearing, normal speech, PERRL Coordination/Gait Exam: normal finger to nose, normal cerebellar function, negative Romberg's sign Motor/Sensory Exam: no motor deficit, no sensory deficit, no pronator drift, negative Babinski's sign DTR Exam: bicep (R): 2+, bicep (L): 2+, knee (R): 2+, knee (L): 2+ Skin Exam: warm, rash SpO2 Interpretation: normal SpO2: 95 O2 Delivery: Room Air - Course EKG Interpreted by Me: RATE ([id number]), Sinus Tach, Left [place] Deviation, prolonged QT interval, Q-wave Ordered Tests: Active Orders 24 hr Category Date Time Status Bedrest ROUTINE Activity 04/24/21 23:39 Active Up With Assistance ROUTINE Activity 04/24/21 23:39 Active Code Status Order ROUTINE Care 04/24/21 23:39 Active Fall Protocol Q1H Care 04/24/21 23:39 Active IV Care Q6H Care 04/24/21 23:39 Active Neuro Checks Q2H Care 04/24/21 23:39 Active POCT Glucose Check ACHS Care 04/24/21 23:[address] in Observation ROUTINE Care 04/24/21 23:39 Active Raulito Qiu, Apply ROUTINE Care 04/24/21 23:39 Active Weight,Daily 0600 Care 04/24/21 23:39 Active CERVICAL SPINE WO CONTRAST [CT] Stat Exams 04/24/21 15:33 Completed CHEST 1 VIEW (PORTABLE) Stat Exams 04/24/21 15:53 Completed HEAD WITHOUT CONTRAST [CT] Stat Exams 04/24/21 15:33 Completed CBC W DIFF AM.LAB Lab 04/25/21 05:20 Completed CBC W DIFF Stat Lab 04/24/21 15:38 Completed CMP AM.LAB Lab 04/25/21 05:20 Completed CMP Stat Lab 04/24/21 15:38 Completed CULTURE,URINE Stat Lab 04/24/21 17:35 Results Lactic Acid Stat Lab 04/24/21 17:38 Completed Lactic Acid Urgent Lab 04/24/21 19:07 Completed MAGNESIUM Stat Lab 04/24/21 15:38 Completed NT PRO BNP Stat Lab 04/24/21 15:38 Completed TROPONIN Q3H Lab 04/24/21 15:38 Completed TROPONIN Q3H Lab 04/24/21 18:40 Completed TROPONIN Q3H Lab 04/24/21 22:10 Completed UA W/RFX UR CULTURE Stat Lab 04/24/21 17:35 Completed Medication Summary Generic Name Dose Route Start Last Admin Trade Name Freq PRN Reason Stop Dose Admin Acetaminophen 650 mg 04/24/21 23:39 Acetaminophen 325 Mg Tablet PO 05/24/21 23:38 Q4H PRN PRN PAIN AND/OR FEVER Aspirin 81 mg 04/25/21 12:00 04/25/21 11:37 Aspirin 81 Mg Tablet.Ec PO 05/25/21 11:59 81 mg DAILY MANAV Administration Carvedilol 3.125 mg 04/25/21 12:00 04/25/21 11:37 Carvedilol 3.125 Mg Tablet PO 05/25/21 11:59 3.125 mg BID MANAV Administration Clopidogrel Bisulfate 75 mg 04/25/21 12:00 04/25/21 11:37 Clopidogrel Bisulfate 75 Mg Tablet PO 05/25/21 11:59 75 mg DAILY MANAV Administration Digoxin 0.25 mg 04/25/21 12:00 04/25/21 11:37 Digoxin 0.125 Mg Tablet PO 05/25/21 11:59 0.25 mg DAILY MANAV Administration Gabapentin 300 mg 04/25/21 15:00 Gabapentin 300 Mg Capsule PO 05/25/21 14:59 TID MANAV Sodium Chloride 1,000 mls @ 100 mls/hr 04/24/21 17:30 04/25/21 04:09 Sodium Chloride 0.9% 1000 Ml IV 05/24/21 17:29 100 mls/hr .Q10H MANAV Administration Piperacillin Sod/Tazobactam 100 mls @ 200 mls/hr 04/24/21 23:39 04/25/21 12:07 Sod 3.375 gm/ Sodium Chloride IV 04/27/21 23:38 200 mls/hr Q6HT MANAV Administration Clindamycin HCl/Dextrose 600 mg in 50 mls @ 100 mls/hr 04/24/21 23:39 04/25/21 09:33 Clindamycin-D5w 600 Mg/50 Ml IV 05/24/21 23:38 100 mls/hr Q8HT MANAV Administration Insulin Human Lispro 0 unit 04/24/21 23:39 Insulin Lispro 1 Unit SQ 05/24/21 23:38 UD PRN HYPERGLYCEMIA Mirabegron 50 mg 04/25/21 12:00 04/25/21 11:37 Mirabegron 25 Mg Tab.Er.24h PO 05/25/21 11:59 50 mg DAILY MANAV Administration Miscellaneous Information 1 each 04/25/21 11:00 Medication Intervention 1 Each Each 05/25/21 10:59 .RN TO CHECK MANAV Morphine Sulfate 2 mg 04/24/21 23:39 Morphine Sulfate 2 Mg/Ml Inj IV 04/29/21 23:38 Q4H PRN PRN PAIN Ondansetron HCl 4 mg 04/24/21 23:39 Ondansetron Hcl 4 Mg/2 Ml Vial IV 05/24/21 23:38 Q6H PRN PRN NAUSEA/VOMITING Pantoprazole Sodium 40 mg 04/25/21 10:00 04/25/21 08:47 Pantoprazole 40 Mg Vial IV 05/25/21 09:59 40 mg Q24H10 MANAV Administration Simvastatin 20 mg 04/25/21 22:00 Simvastatin 20 Mg Tablet PO 05/25/21 21:59 HS MANAV Discontinued Medications Generic Name Dose Route Start Last Admin Trade Name Freq PRN Reason Stop Dose Admin Albuterol/Ipratropium 3 ml 04/24/21 23:39 Ipratropium/Albuterol Sulfate 3 Ml Ampul.Neb IH 05/24/21 23:38 Q4HPRN PRN SHORTNESS OF BREATH/WHEEZING Diphtheria/Tetanus/Acell Pertussis 0.5 ml 04/24/21 15:34 04/24/21 15:47 Tdap --Diph,Pertuss(Acell),Tet Vac/Pf 0.5 Ml Vial IM 04/24/21 15:35 Not Given .ONCE ONE Clindamycin HCl/Dextrose 900 mg in 50 mls @ 100 mls/hr 04/24/21 17:34 04/24/21 19:18 Clindamycin-D5w 900 Mg/50 Ml IV 04/24/21 18:03 Infused STAT STA Infusion Piperacillin Sod/Tazobactam 100 mls @ 200 mls/hr 04/24/21 17:34 04/24/21 17:47 Sod 3.375 gm/ Sodium Chloride IV 04/24/21 18:03 200 mls/hr STAT ONE Administration Sodium Chloride Confirm 04/24/21 17:44 Sodium Chloride 100ml Mini-Bag Plus Administered 04/24/21 17:45 Dose 100 mls @ ud IV .STK-MED ONE Clindamycin HCl/Dextrose Confirm 04/24/21 18:30 Clindamycin-D5w 900 Mg/50 Ml Administered 04/24/21 18:31 Dose 900 mg in 50 mls @ ud IV .STK-MED ONE Sodium Chloride Confirm 04/25/21 00:43 Sodium Chloride 100ml Mini-Bag Plus Administered 04/25/21 00:44 Dose 100 mls @ ud IV .STK-MED ONE Sodium Chloride Confirm 04/25/21 06:35 Sodium Chloride 100ml Mini-Bag Plus Administered 04/25/21 06:36 Dose 100 mls @ ud IV .STK-MED ONE Piperacillin Sod/Tazobactam Sod Confirm 04/24/21 17:44 Piperacillin/Tazobactam Sodium 3.375 Gm Vial Administered 04/24/21 17:45 Dose 3.375 gm IV .STK-MED ONE Piperacillin Sod/Tazobactam Sod Confirm 04/25/21 00:42 Piperacillin/Tazobactam Sodium 3.375 Gm Vial Administered 04/25/21 00:43 Dose 3.375 gm IV .STK-MED ONE Piperacillin Sod/Tazobactam Sod Confirm 04/25/21 06:35 Piperacillin/Tazobactam Sodium 3.375 Gm Vial Administered 04/25/21 06:36 Dose 3.375 gm IV .STK-MED ONE Lab/Rad Data: Laboratory Result Diagrams 04/24/21 15:38 04/24/21 15:38 Laboratory Results 04/24/21 04/24/21 04/24/21 Range/Units 22:10 19:07 18:40 WBC (4.0-10.5) K/mm3 RBC (4.1-5.6) M/mm3 Hgb (12.5-18.0) gm/dl Hct (42-50) % MCV (78-100) fl MCH (26-32) pg MCHC (32-36) g/dl RDW (11.5-14.0) % Plt Count (150-450) K/mm3 MPV (7.5-11.0) fl Gran % (36.0-66.0) % Eos # (Auto) (0-0.5) Absolute Lymphs (auto) (1.0-4.6) Absolute Monos (auto) (0.0-1.3) Lymphocytes % (24.0-44.0) % Monocytes % (0.0-12.0) % Eosinophils % (0.00-5.0) % Basophils % (0.0-0.4) % Absolute Granulocytes (1.4-6.9) Basophils # (0-0.4) Sodium (137-145) mmol/L Potassium (3.5-5.1) mmol/L Chloride (98-107) mmol/L Carbon Dioxide (22-30) mmol/L Anion Gap (5-15) MEQ/L BUN (9-20) mg/dL Creatinine (0.66-1.25) mg/dL Estimated GFR ML/MIN Glucose (74-106) mg/dL Lactic Acid 1.6 (0.4-2.0) Calcium (8.4-10.2) mg/dL Magnesium (1.6-2.3) mg/dL Total Bilirubin (0.2-1.3) mg/dL AST (17-59) U/L ALT (0-50) U/L Alkaline Phosphatase (38-126) U/L Troponin I < 0.012 (0.000-0.034) ng/mL NT-Pro-B Natriuret Pep (0-1800) pg/mL Serum Total Protein (6.3-8.2) g/dL Albumin (3.5-5.0) g/dL Urine Color (YELLOW) Urine Appearance (CLEAR) Urine pH (5-6) Ur Specific Souris (1.005-1.025) Urine Protein (Negative) Urine Ketones (NEGATIVE) Urine Blood (0-5) Bronson/ul Urine Nitrite (NEGATIVE) Urine Bilirubin (NEGATIVE) Urine Urobilinogen (0-1) mg/dL Ur Leukocyte Esterase (NEGATIVE) Urine WBC (Auto) (0-5) /HPF Urine RBC (Auto) (0-2) /HPF U Epithel Cells (Auto) (FEW) /HPF Urine Bacteria (Auto) (NEGATIVE) /HPF Urine Mucus (Auto) (NEGATIVE) /HPF Urine Culture Reflexed (NO) Urine Glucose (NEGATIVE) mg/dL Influenza Type A Ag NEGATIVE (NEGATIVE) Influenza Type B Ag NEGATIVE (NEGATIVE) RSV (PCR) NEGATIVE (Negative) SARS-CoV-2 (PCR) NEGATIVE (NEGATIVE) 04/24/21 04/24/21 04/24/21 Range/Units 18:40 17:38 17:35 WBC (4.0-10.5) K/mm3 RBC (4.1-5.6) M/mm3 Hgb (12.5-18.0) gm/dl Hct (42-50) % MCV (78-100) fl MCH (26-32) pg MCHC (32-36) g/dl RDW (11.5-14.0) % Plt Count (150-450) K/mm3 MPV (7.5-11.0) fl Gran % (36.0-66.0) % Eos # (Auto) (0-0.5) Absolute Lymphs (auto) (1.0-4.6) Absolute Monos (auto) (0.0-1.3) Lymphocytes % (24.0-44.0) % Monocytes % (0.0-12.0) % Eosinophils % (0.00-5.0) % Basophils % (0.0-0.4) % Absolute Granulocytes (1.4-6.9) Basophils # (0-0.4) Sodium (137-145) mmol/L Potassium (3.5-5.1) mmol/L Chloride (98-107) mmol/L Carbon Dioxide (22-30) mmol/L Anion Gap (5-15) MEQ/L BUN (9-20) mg/dL Creatinine (0.66-1.25) mg/dL Estimated GFR ML/MIN Glucose (74-106) mg/dL Lactic Acid 2.8 H (0.4-2.0) Calcium (8.4-10.2) mg/dL Magnesium (1.6-2.3) mg/dL Total Bilirubin (0.2-1.3) mg/dL AST (17-59) U/L ALT (0-50) U/L Alkaline Phosphatase (38-126) U/L Troponin I < 0.012 (0.000-0.034) ng/mL NT-Pro-B Natriuret Pep (0-1800) pg/mL Serum Total Protein (6.3-8.2) g/dL Albumin (3.5-5.0) g/dL Urine Color YELLOW (YELLOW) Urine Appearance CLEAR (CLEAR) Urine pH 5.0 (5-6) Ur Specific Souris 1.027 (1.005-1.025) Urine Protein NEGATIVE (Negative) Urine Ketones SMALL (NEGATIVE) Urine Blood SMALL (0-5) Bronson/ul Urine Nitrite NEGATIVE (NEGATIVE) Urine Bilirubin NEGATIVE (NEGATIVE) Urine Urobilinogen NEGATIVE (0-1) mg/dL Ur Leukocyte Esterase NEGATIVE (NEGATIVE) Urine WBC (Auto) 11-15 (0-5) /HPF Urine RBC (Auto) 3-5 (0-2) /HPF U Epithel Cells (Auto) NONE (FEW) /HPF Urine Bacteria (Auto) MODERATE (NEGATIVE) /HPF Urine Mucus (Auto) SLIGHT (NEGATIVE) /HPF Urine Culture Reflexed YES (NO) Urine Glucose >=500 (NEGATIVE) mg/dL Influenza Type A Ag (NEGATIVE) Influenza Type B Ag (NEGATIVE) RSV (PCR) (Negative) SARS-CoV-2 (PCR) (NEGATIVE) 04/24/21 04/24/21 04/24/21 Range/Units 15:38 15:38 15:38 WBC 17.0 H (4.0-10.5) K/mm3 RBC 4.67 (4.1-5.6) M/mm3 Hgb 13.9 (12.5-18.0) gm/dl Hct 43.7 (42-50) % MCV 93.6 (78-100) fl MCH 29.8 (26-32) pg MCHC 31.8 L (32-36) g/dl RDW 15.9 H (11.5-14.0) % Plt Count 198 (150-450) K/mm3 MPV 9.3 (7.5-11.0) fl Gran % 83.0 H (36.0-66.0) % Eos # (Auto) 0.04 (0-0.5) Absolute Lymphs (auto) 1.63 (1.0-4.6) Absolute Monos (auto) 1.17 (0.0-1.3) Lymphocytes % 9.6 L (24.0-44.0) % Monocytes % 6.9 (0.0-12.0) % Eosinophils % 0.2 (0.00-5.0) % Basophils % 0.3 (0.0-0.4) % Absolute Granulocytes 14.15 H (1.4-6.9) Basophils # 0.05 (0-0.4) Sodium 134 L (137-145) mmol/L Potassium 4.4 (3.5-5.1) mmol/L Chloride 98 (98-107) mmol/L Carbon Dioxide 23 (22-30) mmol/L Anion Gap 16.7 H (5-15) MEQ/L BUN 21 H (9-20) mg/dL Creatinine 0.85 (0.66-1.25) mg/dL Estimated GFR > 60.0 ML/MIN Glucose 257 H (74-106) mg/dL Lactic Acid (0.4-2.0) Calcium 9.0 (8.4-10.2) mg/dL Magnesium 2.0 (1.6-2.3) mg/dL Total Bilirubin 0.50 (0.2-1.3) mg/dL AST 28 (17-59) U/L ALT 17 (0-50) U/L Alkaline Phosphatase 89 (38-126) U/L Troponin I < 0.012 (0.000-0.034) ng/mL NT-Pro-B Natriuret Pep 149 (0-1800) pg/mL Serum Total Protein 6.6 (6.3-8.2) g/dL Albumin 4.1 (3.5-5.0) g/dL Urine Color (YELLOW) Urine Appearance (CLEAR) Urine pH (5-6) Ur Specific Souris (1.005-1.025) Urine Protein (Negative) Urine Ketones (NEGATIVE) Urine Blood (0-5) Bronson/ul Urine Nitrite (NEGATIVE) Urine Bilirubin (NEGATIVE) Urine Urobilinogen (0-1) mg/dL Ur Leukocyte Esterase (NEGATIVE) Urine WBC (Auto) (0-5) /HPF Urine RBC (Auto) (0-2) /HPF U Epithel Cells (Auto) (FEW) /HPF Urine Bacteria (Auto) (NEGATIVE) /HPF Urine Mucus (Auto) (NEGATIVE) /HPF Urine Culture Reflexed (NO) Urine Glucose (NEGATIVE) mg/dL Influenza Type A Ag (NEGATIVE) Influenza Type B Ag (NEGATIVE) RSV (PCR) (Negative) SARS-CoV-2 (PCR) (NEGATIVE) - Progress Progress: improved, re-examined Progress Note: 04/24/21 17:39 85 years old is evaluated for fall which seems to be mechanical and afterwards generalized weakness. Patient reported having generalized weakness and fatigue for the last couple of days. Nonfocal neuro exam. Obtain CT head and cervical spine which are negative for any acute trauma related findings. Patient is tachycardic with a heart rate in 120s and 110s. Started on gentle hydration. Work-up showed white count of 17 and a glucose of 250s. Chest x-ray reviewed by me did not reveal any obvious acute findings. Patient does have low-grade temperature and cellulitis of left lower leg and big toe. Started on Zosyn and clindamycin. Discussed with Dr. Brooks, reviewed history, work-up and patient is being admitted and will continue with gentle hydration. Discussed with : Halle Will see patient in: hospital (observation) Counseled pt/family regarding: lab results, diagnosis, rad results - Departure Departure Disposition: Observation Clinical Impression: Left leg cellulitis Scalp contusion Qualifiers: Encounter type: initial encounter Qualified Code(s): S00.03XA - Contusion of scalp, initial encounter Fall Qualifiers: Encounter type: initial encounter Qualified Code(s): W19.XXXA - Unspecified fall, initial encounter Condition: Stable Critical Care Time: No
[2021-04-24 16:23] LABS: Absolute Neutrophil Ct (ANC) 14.15 (1.4-6.9); BASOPHIL % 0.3 % (0.0-0.4); Basophil (Absolute #) 0.05 (0-0.4); Eosinophil % 0.2 % (0.00-5.0); Eosinophil (Absolute #) 0.04 (0-0.5); Hematocrit 43.7 % (42-50); Hemoglobin 13.9 gm/dl (12.5-18.0); Lymphocyte (Absolute #) 1.63 (1.0-4.6); Lymphocytes % 9.6 % (24.0-44.0); Mean Cell Volume 93.6 fl (78-100); Mean Corpuscular Hemoglobin 29.8 pg (26-32); Mean Corpuscular Hgb Concent. 31.8 g/dl (32-36); Mean Platelet Volume 9.3 fl (7.5-11.0); Monocyte (Absolute #) 1.17 (0.0-1.3); Monocytes % 6.9 % (0.0-12.0); Platelet Count 198 K/mm3 (150-450); Red Blood Count 4.67 M/mm3 (4.1-5.6); Red Cell Distribution Width 15.9 % (11.5-14.0)
[2021-04-24 16:48] LABS: ALBUMIN 4.1 g/dL (3.5-5.0); ALKALINE PHOSPHATASE 89 U/L (38-126); ANION GAP 16.7 MEQ/L (5-15); BLOOD UREA NITROGEN 21 mg/dL (9-20); CHLORIDE 98 mmol/L (98-107); Carbon Dioxide 23 mmol/L (22-30); Creatinine 1 0.85 mg/dL (0.66-1.25); EST GLOMERULAR FILTRATION RATE > 60.0 ML/MIN; Glucose 257 mg/dL (74-106); NT PRO BNP 149 pg/mL (0-1800); Potassium 4.4 mmol/L (3.5-5.1); SGOT/AST 28 U/L (17-59); SGPT/ALT 17 U/L (0-50); SODIUM 134 mmol/L (137-145); Total Protein 6.6 g/dL (6.3-8.2)
[2021-04-24] MEDS: Sodium Chloride 0.9% 1000 ML 1,000 ML IV SCH (17:32)
[2021-04-24] MEDS ORDERED: CLINDAMYCIN-D5W 900 MG/50 ML*** 900 MG/50 ML BAG IV STA (17:34)
[2021-04-24] MEDS ORDERED: Zosyn 3.375 GM Vial 3.375 GM in Sodium Chloride 100ML MINI-BAG PLUS 100 ML IV ONE (17:34)
[2021-04-24] MEDS ORDERED: Sodium Chloride 100ML MINI-BAG PLUS 100 ML IV ONE (17:44)
[2021-04-24] MEDS ORDERED: Zosyn 3.375 GM Vial IV ONE (17:44)
[2021-04-24] MEDS ORDERED: CLINDAMYCIN-D5W 900 MG/50 ML*** 900 MG/50 ML BAG IV ONE (18:30)
[2021-04-24 18:52] LABS: Appearance CLEAR (CLEAR); Bacteria MODERATE /HPF (NEGATIVE); Bilirubin NEGATIVE (NEGATIVE); Blood SMALL Ery/ul (0-5); Glucose >=500 mg/dL (NEGATIVE); Ketones SMALL (NEGATIVE); Leukocyte Esterase NEGATIVE (NEGATIVE); Mucus SLIGHT /HPF (NEGATIVE); Nitrite NEGATIVE (NEGATIVE); Protein,Urine Dip NEGATIVE (Negative); Specific Gravity 1.027 (1.005-1.025); Urobilinogen NEGATIVE mg/dL (0-1)
[2021-04-24 19:24] LABS: INFLUENZA A NEGATIVE (NEGATIVE); INFLUENZA B NEGATIVE (NEGATIVE); RESPIRATORY SYNCTIAL VIRUS NEGATIVE (Negative); SARS-CoV-2 Xpert Express NEGATIVE (NEGATIVE)
--- NOTE | 2021-04-24 20:21 | XRAY ---
Indication: Status post fall. Head abrasion. Multiple contiguous axial images obtained through the head without contrast. Comparison: December 12, 2020. Again age-appropriate global atrophy, mild periventricular degenerative micro-ischemia, and remote lacunar infarct right basal ganglia. No acute intracranial hemorrhage, abnormal extra-axial fluid collection, or mass effect. Fourth ventricle is midline without hydrocephalus. Bony calvarium intact. Visualized paranasal sinuses and mastoid air cells are clear. Impression: Continued nonacute senile brain with remote lacunar infarct right basal ganglia. Common: Preliminary interpretation made by [facility]. No critical discrepancy.
--- NOTE | 2021-04-24 20:25 | XRAY ---
Indication: Status post fall. Head abrasion. Multiple contiguous axial images obtained through the cervical spine. Sagittal and coronal reformatted images obtained. Comparison: None. Osseous structures demineralized consistent with patient's age. Axial images negative for acute fracture, suspicious bony lesions, or spinal canal stenosis. There is mild/moderate C3-C7 degenerative endplate spurring and mild multilevel bilateral degenerative facet hypertrophy. Sagittal and coronal reformatted images demonstrates lordotic reversal centered at C4, positional versus paraspinal spasm. 2-3 mm C3 anterolisthesis on C4. C3-C7 degenerative disc space narrowing. No acute compression fracture or jumped facet. Normal appearing craniocervical junction. Visualized noncontrasted soft tissues demonstrates mild bilateral carotid calcifications. Impression: 1. Cervical lordotic reversal, positional versus paraspinal spasm. 2. Osteopenia, multilevel degenerative spondylosis, and grade 1 C3 spondylolisthesis. Common: Preliminary interpretation made by [facility]. No critical discrepancy.
--- NOTE | 2021-04-24 20:25 | XRAY ---
Indication: Status post fall. Comparison: December 12, 2020. Portable chest unchanged again demonstrating minimal bibasilar subsegmental atelectasis/scarring. Remaining heart and lungs unremarkable. Bony thorax intact again with osteopenia, degenerative changes, and old right 4-6 rib fractures. No new/acute abnormalities.
[2021-04-24] MEDS ORDERED: DUONEB 0.5-3 MG/3 ml Neb IH PRN (23:39)
[2021-04-24] MEDS ORDERED: MORPHINE SULFATE 2 MG INJ IV PRN (23:39)
[2021-04-24] MEDS ORDERED: TYLENOL 325 MG PO PRN (23:39)
[2021-04-24] MEDS ORDERED: Zofran 4 MG/2 ML VIAL IV PRN (23:39)
[2021-04-25] MEDS ORDERED: Zosyn 3.375 GM Vial IV ONE ×2 (00:42→06:35)
[2021-04-25] MEDS ORDERED: Sodium Chloride 100ML MINI-BAG PLUS 100 ML IV ONE ×2 (00:43→06:35)
[2021-04-25] MEDS: Zosyn 3.375 GM Vial 3.375 GM in Sodium Chloride 100ML MINI-BAG PLUS 100 ML IV SCH ×6 (00:52→23:58)
[2021-04-25] MEDS: CLINDAMYCIN-D5W 600 MG/50 ML*** 600 MG/50 ML BAG IV SCH ×3 (01:36→17:21)
[2021-04-25] MEDS: Sodium Chloride 0.9% 1000 ML 1,000 ML IV SCH ×2 (04:09→16:15)
[2021-04-25 05:55] LABS: Absolute Neutrophil Ct (ANC) 8.29 (1.4-6.9); BASOPHIL % 0.4 % (0.0-0.4); Basophil (Absolute #) 0.04 (0-0.4); Eosinophil % 0.1 % (0.00-5.0); Eosinophil (Absolute #) 0.01 (0-0.5); Hematocrit 39.1 % (42-50); Hemoglobin 12.4 gm/dl (12.5-18.0); Lymphocyte (Absolute #) 1.42 (1.0-4.6); Lymphocytes % 13.3 % (24.0-44.0); Mean Cell Volume 93.8 fl (78-100); Mean Corpuscular Hemoglobin 29.7 pg (26-32); Mean Corpuscular Hgb Concent. 31.7 g/dl (32-36); Mean Platelet Volume 9.1 fl (7.5-11.0); Monocyte (Absolute #) 0.88 (0.0-1.3); Monocytes % 8.3 % (0.0-12.0); Neutrophil % 77.9 % (36.0-66.0); Platelet Count 162 K/mm3 (150-450); Red Blood Count 4.17 M/mm3 (4.1-5.6); Red Cell Distribution Width 16.1 % (11.5-14.0); White Blood Count 10.6 K/mm3 (4.0-10.5)
[2021-04-25 06:15] LABS: ALBUMIN 3.3 g/dL (3.5-5.0); ALKALINE PHOSPHATASE 57 U/L (38-126); BLOOD UREA NITROGEN 19 mg/dL (9-20); CHLORIDE 100 mmol/L (98-107); Calcium 7.8 mg/dL (8.4-10.2); Carbon Dioxide 22 mmol/L (22-30); Creatinine 1 0.91 mg/dL (0.66-1.25); EST GLOMERULAR FILTRATION RATE > 60.0 ML/MIN; Glucose 134 mg/dL (74-106); Potassium 3.7 mmol/L (3.5-5.1); SGOT/AST 23 U/L (17-59); SGPT/ALT 12 U/L (0-50); SODIUM 131 mmol/L (137-145); Total Protein 5.9 g/dL (6.3-8.2)
[2021-04-25] MEDS ORDERED: PROTONIX 40 MG IV IV SCH (10:00)
[2021-04-25] MEDS ORDERED: MEDICATION INTERVENTION MC SCH (11:00)
[2021-04-25] MEDS: Coreg 3.125 MG PO SCH ×2 (11:37→21:14)
[2021-04-25] MEDS ORDERED: PLAVIX 75 MG Tablet PO SCH (12:00)
[2021-04-25] MEDS ORDERED: ECOTRIN 81 MG PO SCH (12:00)
[2021-04-25] MEDS ORDERED: Lanoxin 0.125MG TABLET PO SCH (12:00)
[2021-04-25] MEDS ORDERED: MYRBETRIQ PO SCH (12:00)
[2021-04-25] MEDS: NEURONTIN 300 MG PO SCH ×2 (15:28→21:14)
[2021-04-25] MEDS ORDERED: ENOXAPARIN SODIUM SQ SCH (15:30)
--- NOTE | 2021-04-25 15:33 | PCM.HP ---
History of Present Illness - Chief Complaint Chief Complaint: Left lower extremity cellulitis History of Present Illness: is a 85 year old male pt of Dr. Sherman with BPH, CAD, and DM who was admitted through ER after falling last night. He was walking up a curb and fell, hitting the back of his head. Denies any LOC. Has been weak and tired for several days. Also noticed swollen/blistered L great toe after cutting his nail. In ER was noted to have redness to LLE and was started on IV zosyn and clindamycin. Labs show pt has UTI, which should be covered by zosyn (prelim is GNR). Pt has been tachy into the 120s on arrival. Pt has lost 20 lb in the past 1 yr. - Review of Systems Constitutional: Weight Loss Musculoskeletal: Fall, Other (posterior scalp with abrasion) Neurological: Dizziness All Other Systems: Reviewed and Negative Medications & Allergies Home Medications: Home Medication List Aspirin EC 81 mg [Ecotrin 81 mg] 81 mg PO DAILY 04/25/21 [History Confirmed 04/25/21] Atorvastatin Calcium 20 mg PO HS 04/25/21 [History Confirmed 04/25/21] Carvedilol 3.125 mg [Coreg 3.125 MG] 3.125 mg PO BID 04/25/21 [History Confirmed 04/25/21] Cholecalciferol (Vitamin D3) [Vitamin D3] 1 tab PO DAILY 04/25/21 [History Confirmed 04/25/21] Clopidogrel Bisulfate 75 mg [PLAVIX 75 MG Tablet] 75 mg PO DAILY 04/25/21 [History Confirmed 04/25/21] Digoxin 250 mcg PO DAILY 04/25/21 [History Confirmed 04/25/21] Dulaglutide [Trulicity] 3 mg SQ WEEKLY 04/25/21 [History Confirmed 04/25/21] Empagliflozin [Jardiance] 25 mg PO DAILY 04/25/21 [History Confirmed 04/25/21] Gabapentin 300 mg [Neurontin 300 mg] 300 mg PO TID 04/25/21 [History Confirmed 04/25/21] Glipizide/Metformin HCl [Glipizide-Metformin 5-500 mg] 1 tablet PO TID 04/25/21 [History Confirmed 04/25/21] Mirabegron [Myrbetriq] 50 mg PO DAILY 04/25/21 [History Confirmed 04/25/21] Multivitamin 1 tablet PO DAILY 04/25/21 [History Confirmed 04/25/21] Allergies/Adverse Reactions: Allergies Allergy/AdvReac Type Severity Reaction Status Date / Time No Known Drug Allergies Allergy Verified 04/24/21 15:31 - Past Medical History Past Medical History: Yes Neurological History: No Pertinent History ENT History: Cataracts Cardiac History: Coronary Artery Disease Respiratory History: No Pertinent History Endocrine Medical History: Diabetes Type II Musculoskelatal History: No Pertinent History GI Medical History: No Pertinent History History: No Pertinent History Pyscho-Social History: No Pertinent History Male Reproductive Disorders: Prostate Problems Comment: back surgery (discectomy), 5 stents in heart(2014) - Past Surgical History Past Surgical History: Yes Neuro Surgical History: No Pertinent History Cardiac History: Cardiac Catheterization, Cardiac Stent Respiratory Surgery: No Pertinent History GI Surgical History: Appendectomy Genitourinary Surgical Hx: No Pertinent History Musculskeletal Surgical Hx: Other Male Surgical History: Prostate Surgery Other Surgical History: achilles tendon, back surgery - Social History Smoking Status: Never smoker Exposure to second hand smoke: No Alcohol: None Drug Use: none - Physical Exam Vital Signs: Vital Signs - 24 hr Temp Pulse Resp BP BP Pulse Ox 04/25/21 12:16 95 04/25/21 11:37 69 101/62 04/25/21 11:36 96.3 F 69 16 101/62 95 04/25/21 07:19 97.9 F 85 16 107/62 94 L 04/25/21 03:50 98.9 F 72 18 115/67 95 04/24/21 23:47 98.7 F 93 H 18 127/65 96 04/24/21 22:18 96 H 20 125/70 96 04/24/21 21:35 97 H 22 136/70 93 L 04/24/21 20:00 96 H 18 136/68 98 04/24/21 19:17 100 H 20 120/69 95 04/24/21 18:48 105 H 18 148/77 93 L 04/24/21 17:11 115 H 21 133/77 96 04/24/21 15:32 99.8 F 117 H 19 148/86 95 General Appearance: no apparent distress, alert, other (posterior scalp with approx 2x3cm area of abrasion, no exudate or erythema.) Neurologic Exam: oriented x 3, cooperative, other (CN III-XII intact bilat.) Ears, Nose, Throat Exam: moist mucous membranes Neck Exam: non-tender, No lymphadenopathy Respiratory Exam: normal breath sounds, lungs clear, No crackles/rales, No rhonchi, No wheezing Cardiovascular Exam: regular rate/rhythm, normal heart sounds, No murmur Gastrointestinal/Abdomen Exam: soft, No tenderness, No distention, No mass, No guarding, No rebound Back Exam: normal inspection, other (many stuck on brown pigmented lesions), No rash Extremity Exam: other (edema, L pretibial, trace, with mild erythema and warmth anteriorly. L great toe with medial blister and inferior to that an approx 1 cm black eschar) Skin Exam: warm, dry Results - Labs Lab/Micro Results: Lab Results-Last 24 Hours 04/24/21 04/24/21 04/24/21 Range/Units 15:38 15:38 15:38 WBC 17.0 H (4.0-10.5) K/mm3 RBC 4.67 (4.1-5.6) M/mm3 Hgb 13.9 (12.5-18.0) gm/dl Hct 43.7 (42-50) % MCV 93.6 (78-100) fl MCH 29.8 (26-32) pg MCHC 31.8 L (32-36) g/dl RDW 15.9 H (11.5-14.0) % Plt Count 198 (150-450) K/mm3 MPV 9.3 (7.5-11.0) fl Gran % 83.0 H (36.0-66.0) % Eos # (Auto) 0.04 (0-0.5) Absolute Lymphs (auto) 1.63 (1.0-4.6) Absolute Monos (auto) 1.17 (0.0-1.3) Lymphocytes % 9.6 L (24.0-44.0) % Monocytes % 6.9 (0.0-12.0) % Eosinophils % 0.2 (0.00-5.0) % Basophils % 0.3 (0.0-0.4) % Absolute Granulocytes 14.15 H (1.4-6.9) Basophils # 0.05 (0-0.4) Sodium 134 L (137-145) mmol/L Potassium 4.4 (3.5-5.1) mmol/L Chloride 98 (98-107) mmol/L Carbon Dioxide 23 (22-30) mmol/L Anion Gap 16.7 H (5-15) MEQ/L BUN 21 H (9-20) mg/dL Creatinine 0.85 (0.66-1.25) mg/dL Estimated GFR > 60.0 ML/MIN Glucose 257 H (74-106) mg/dL POC Glucometer (74 to 106) mg/dL Lactic Acid (0.4-2.0) Calcium 9.0 (8.4-10.2) mg/dL Magnesium 2.0 (1.6-2.3) mg/dL Total Bilirubin 0.50 (0.2-1.3) mg/dL AST 28 (17-59) U/L ALT 17 (0-50) U/L Alkaline Phosphatase 89 (38-126) U/L Troponin I < 0.012 (0.000-0.034) ng/mL NT-Pro-B Natriuret Pep 149 (0-1800) pg/mL Serum Total Protein 6.6 (6.3-8.2) g/dL Albumin 4.1 (3.5-5.0) g/dL Urine Color (YELLOW) Urine Appearance (CLEAR) Urine pH (5-6) Ur Specific [place] (1.005-1.025) Urine Protein (Negative) Urine Ketones (NEGATIVE) Urine Blood (0-5) Bronson/ul Urine Nitrite (NEGATIVE) Urine Bilirubin (NEGATIVE) Urine Urobilinogen (0-1) mg/dL Ur Leukocyte Esterase (NEGATIVE) Urine WBC (Auto) (0-5) /HPF Urine RBC (Auto) (0-2) /HPF U Epithel Cells (Auto) (FEW) /HPF Urine Bacteria (Auto) (NEGATIVE) /HPF Urine Mucus (Auto) (NEGATIVE) /HPF Urine Culture Reflexed (NO) Urine Glucose (NEGATIVE) mg/dL Influenza Type A Ag (NEGATIVE) Influenza Type B Ag (NEGATIVE) RSV (PCR) (Negative) SARS-CoV-2 (PCR) (NEGATIVE) 04/24/21 04/24/21 04/24/21 Range/Units 17:35 17:38 18:40 WBC (4.0-10.5) K/mm3 RBC (4.1-5.6) M/mm3 Hgb (12.5-18.0) gm/dl Hct (42-50) % MCV (78-100) fl MCH (26-32) pg MCHC (32-36) g/dl RDW (11.5-14.0) % Plt Count (150-450) K/mm3 MPV (7.5-11.0) fl Gran % (36.0-66.0) % Eos # (Auto) (0-0.5) Absolute Lymphs (auto) (1.0-4.6) Absolute Monos (auto) (0.0-1.3) Lymphocytes % (24.0-44.0) % Monocytes % (0.0-12.0) % Eosinophils % (0.00-5.0) % Basophils % (0.0-0.4) % Absolute Granulocytes (1.4-6.9) Basophils # (0-0.4) Sodium (137-145) mmol/L Potassium (3.5-5.1) mmol/L Chloride (98-107) mmol/L Carbon Dioxide (22-30) mmol/L Anion Gap (5-15) MEQ/L BUN (9-20) mg/dL Creatinine (0.66-1.25) mg/dL Estimated GFR ML/MIN Glucose (74-106) mg/dL POC Glucometer (74 to 106) mg/dL Lactic Acid 2.8 H (0.4-2.0) Calcium (8.4-10.2) mg/dL Magnesium (1.6-2.3) mg/dL Total Bilirubin (0.2-1.3) mg/dL AST (17-59) U/L ALT (0-50) U/L Alkaline Phosphatase (38-126) U/L Troponin I < 0.012 (0.000-0.034) ng/mL NT-Pro-B Natriuret Pep (0-1800) pg/mL Serum Total Protein (6.3-8.2) g/dL Albumin (3.5-5.0) g/dL Urine Color YELLOW (YELLOW) Urine Appearance CLEAR (CLEAR) Urine pH 5.0 (5-6) Ur Specific [place] 1.027 (1.005-1.025) Urine Protein NEGATIVE (Negative) Urine Ketones SMALL (NEGATIVE) Urine Blood SMALL (0-5) Bronson/ul Urine Nitrite NEGATIVE (NEGATIVE) Urine Bilirubin NEGATIVE (NEGATIVE) Urine Urobilinogen NEGATIVE (0-1) mg/dL Ur Leukocyte Esterase NEGATIVE (NEGATIVE) Urine WBC (Auto) 11-15 (0-5) /HPF Urine RBC (Auto) 3-5 (0-2) /HPF U Epithel Cells (Auto) NONE (FEW) /HPF Urine Bacteria (Auto) MODERATE (NEGATIVE) /HPF Urine Mucus (Auto) SLIGHT (NEGATIVE) /HPF Urine Culture Reflexed YES (NO) Urine Glucose >=500 (NEGATIVE) mg/dL Influenza Type A Ag (NEGATIVE) Influenza Type B Ag (NEGATIVE) RSV (PCR) (Negative) SARS-CoV-2 (PCR) (NEGATIVE) 04/24/21 04/24/21 04/24/21 Range/Units 18:40 19:07 22:10 WBC (4.0-10.5) K/mm3 RBC (4.1-5.6) M/mm3 Hgb (12.5-18.0) gm/dl Hct (42-50) % MCV (78-100) fl MCH (26-32) pg MCHC (32-36) g/dl RDW (11.5-14.0) % Plt Count (150-450) K/mm3 MPV (7.5-11.0) fl Gran % (36.0-66.0) % Eos # (Auto) (0-0.5) Absolute Lymphs (auto) (1.0-4.6) Absolute Monos (auto) (0.0-1.3) Lymphocytes % (24.0-44.0) % Monocytes % (0.0-12.0) % Eosinophils % (0.00-5.0) % Basophils % (0.0-0.4) % Absolute Granulocytes (1.4-6.9) Basophils # (0-0.4) Sodium (137-145) mmol/L Potassium (3.5-5.1) mmol/L Chloride (98-107) mmol/L Carbon Dioxide (22-30) mmol/L Anion Gap (5-15) MEQ/L BUN (9-20) mg/dL Creatinine (0.66-1.25) mg/dL Estimated GFR ML/MIN Glucose (74-106) mg/dL POC Glucometer (74 to 106) mg/dL Lactic Acid 1.6 (0.4-2.0) Calcium (8.4-10.2) mg/dL Magnesium (1.6-2.3) mg/dL Total Bilirubin (0.2-1.3) mg/dL AST (17-59) U/L ALT (0-50) U/L Alkaline Phosphatase (38-126) U/L Troponin I < 0.012 (0.000-0.034) ng/mL NT-Pro-B Natriuret Pep (0-1800) pg/mL Serum Total Protein (6.3-8.2) g/dL Albumin (3.5-5.0) g/dL Urine Color (YELLOW) Urine Appearance (CLEAR) Urine pH (5-6) Ur Specific [place] (1.005-1.025) Urine Protein (Negative) Urine Ketones (NEGATIVE) Urine Blood (0-5) Bronson/ul Urine Nitrite (NEGATIVE) Urine Bilirubin (NEGATIVE) Urine Urobilinogen (0-1) mg/dL Ur Leukocyte Esterase (NEGATIVE) Urine WBC (Auto) (0-5) /HPF Urine RBC (Auto) (0-2) /HPF U Epithel Cells (Auto) (FEW) /HPF Urine Bacteria (Auto) (NEGATIVE) /HPF Urine Mucus (Auto) (NEGATIVE) /HPF Urine Culture Reflexed (NO) Urine Glucose (NEGATIVE) mg/dL Influenza Type A Ag NEGATIVE (NEGATIVE) Influenza Type B Ag NEGATIVE (NEGATIVE) RSV (PCR) NEGATIVE (Negative) SARS-CoV-2 (PCR) NEGATIVE (NEGATIVE) 04/25/21 04/25/21 04/25/21 Range/Units 05:20 05:20 07:03 WBC 10.6 H (4.0-10.5) K/mm3 RBC 4.17 (4.1-5.6) M/mm3 Hgb 12.4 L (12.5-18.0) gm/dl Hct 39.1 L (42-50) % MCV 93.8 (78-100) fl MCH 29.7 (26-32) pg MCHC 31.7 L (32-36) g/dl RDW 16.1 H (11.5-14.0) % Plt Count 162 (150-450) K/mm3 MPV 9.1 (7.5-11.0) fl Gran % 77.9 H (36.0-66.0) % Eos # (Auto) 0.01 (0-0.5) Absolute Lymphs (auto) 1.42 (1.0-4.6) Absolute Monos (auto) 0.88 (0.0-1.3) Lymphocytes % 13.3 L (24.0-44.0) % Monocytes % 8.3 (0.0-12.0) % Eosinophils % 0.1 (0.00-5.0) % Basophils % 0.4 (0.0-0.4) % Absolute Granulocytes 8.29 H (1.4-6.9) Basophils # 0.04 (0-0.4) Sodium 131 L (137-145) mmol/L Potassium 3.7 (3.5-5.1) mmol/L Chloride 100 (98-107) mmol/L Carbon Dioxide 22 (22-30) mmol/L Anion Gap 13.0 (5-15) MEQ/L BUN 19 (9-20) mg/dL Creatinine 0.91 (0.66-1.25) mg/dL Estimated GFR > 60.0 ML/MIN Glucose 134 H (74-106) mg/dL POC Glucometer 145 H (74 to 106) mg/dL Lactic Acid (0.4-2.0) Calcium 7.8 L (8.4-10.2) mg/dL Magnesium (1.6-2.3) mg/dL Total Bilirubin 0.80 (0.2-1.3) mg/dL AST 23 (17-59) U/L ALT 12 (0-50) U/L Alkaline Phosphatase 57 (38-126) U/L Troponin I (0.000-0.034) ng/mL NT-Pro-B Natriuret Pep (0-1800) pg/mL Serum Total Protein 5.9 L (6.3-8.2) g/dL Albumin 3.3 L (3.5-5.0) g/dL Urine Color (YELLOW) Urine Appearance (CLEAR) Urine pH (5-6) Ur Specific [place] (1.005-1.025) Urine Protein (Negative) Urine Ketones (NEGATIVE) Urine Blood (0-5) Bronson/ul Urine Nitrite (NEGATIVE) Urine Bilirubin (NEGATIVE) Urine Urobilinogen (0-1) mg/dL Ur Leukocyte Esterase (NEGATIVE) Urine WBC (Auto) (0-5) /HPF Urine RBC (Auto) (0-2) /HPF U Epithel Cells (Auto) (FEW) /HPF Urine Bacteria (Auto) (NEGATIVE) /HPF Urine Mucus (Auto) (NEGATIVE) /HPF Urine Culture Reflexed (NO) Urine Glucose (NEGATIVE) mg/dL Influenza Type A Ag (NEGATIVE) Influenza Type B Ag (NEGATIVE) RSV (PCR) (Negative) SARS-CoV-2 (PCR) (NEGATIVE) 04/25/21 Range/Units 11:28 WBC (4.0-10.5) K/mm3 RBC (4.1-5.6) M/mm3 Hgb (12.5-18.0) gm/dl Hct (42-50) % MCV (78-100) fl MCH (26-32) pg MCHC (32-36) g/dl RDW (11.5-14.0) % Plt Count (150-450) K/mm3 MPV (7.5-11.0) fl Gran % (36.0-66.0) % Eos # (Auto) (0-0.5) Absolute Lymphs (auto) (1.0-4.6) Absolute Monos (auto) (0.0-1.3) Lymphocytes % (24.0-44.0) % Monocytes % (0.0-12.0) % Eosinophils % (0.00-5.0) % Basophils % (0.0-0.4) % Absolute Granulocytes (1.4-6.9) Basophils # (0-0.4) Sodium (137-145) mmol/L Potassium (3.5-5.1) mmol/L Chloride (98-107) mmol/L Carbon Dioxide (22-30) mmol/L Anion Gap (5-15) MEQ/L BUN (9-20) mg/dL Creatinine (0.66-1.25) mg/dL Estimated GFR ML/MIN Glucose (74-106) mg/dL POC Glucometer 173 H (74 to 106) mg/dL Lactic Acid (0.4-2.0) Calcium (8.4-10.2) mg/dL Magnesium (1.6-2.3) mg/dL Total Bilirubin (0.2-1.3) mg/dL AST (17-59) U/L ALT (0-50) U/L Alkaline Phosphatase (38-126) U/L Troponin I (0.000-0.034) ng/mL NT-Pro-B Natriuret Pep (0-1800) pg/mL Serum Total Protein (6.3-8.2) g/dL Albumin (3.5-5.0) g/dL Urine Color (YELLOW) Urine Appearance (CLEAR) Urine pH (5-6) Ur Specific [place] (1.005-1.025) Urine Protein (Negative) Urine Ketones (NEGATIVE) Urine Blood (0-5) Bronson/ul Urine Nitrite (NEGATIVE) Urine Bilirubin (NEGATIVE) Urine Urobilinogen (0-1) mg/dL Ur Leukocyte Esterase (NEGATIVE) Urine WBC (Auto) (0-5) /HPF Urine RBC (Auto) (0-2) /HPF U Epithel Cells (Auto) (FEW) /HPF Urine Bacteria (Auto) (NEGATIVE) /HPF Urine Mucus (Auto) (NEGATIVE) /HPF Urine Culture Reflexed (NO) Urine Glucose (NEGATIVE) mg/dL Influenza Type A Ag (NEGATIVE) Influenza Type B Ag (NEGATIVE) RSV (PCR) (Negative) SARS-CoV-2 (PCR) (NEGATIVE) Microbiology 04/24/21 17:35 Urine Culture - Preliminary Urine, Void GRAM NEGATIVE ID AND SENSITIVITY PENDING Accuchecks Date 04/25/21 Date 04/25/21 Time 11:35 Time 07:19 - Radiology Impressions Radiology Exams & Impressions: Radiology Procedures Category Date Time Status CERVICAL SPINE WO CONTRAST [CT] Stat Exams 04/24/21 15:33 Completed CHEST 1 VIEW (PORTABLE) Stat Exams 04/24/21 15:53 Completed HEAD WITHOUT CONTRAST [CT] Stat Exams 04/24/21 15:33 Completed Assessment/Plan (1) Fall Current Visit: Yes Status: Acute Qualifiers: Encounter type: initial encounter Qualified Code(s): W19.XXXA - Unspecified fall, initial encounter Assessment & Plan: no LOC and orthostats were good. Likely due to UTI. Code(s): W19.XXXA - UNSPECIFIED FALL, INITIAL ENCOUNTER (2) Urinary tract infection Current Visit: No Status: Acute Qualifiers: Urinary tract infection type: acute cystitis Hematuria presence: without hematuria Qualified Code(s): N30.00 - Acute cystitis without hematuria Assessment & Plan: initially culture + GNR. Code(s): N39.0 - URINARY TRACT INFECTION, SITE NOT SPECIFIED (3) Left leg cellulitis Current Visit: Yes Status: Acute Assessment & Plan: on zosyn and clindamycin day #2. Code(s): L03.116 - CELLULITIS OF LEFT LOWER LIMB (4) Scalp contusion Current Visit: Yes Status: Acute Qualifiers: Encounter type: initial encounter Qualified Code(s): S00.03XA - Contusion of scalp, initial encounter Code(s): S00.03XA - CONTUSION OF SCALP, INITIAL ENCOUNTER (5) Diabetes mellitus Current Visit: No Status: Acute Qualifiers: Diabetes mellitus type: type 2 Diabetes mellitus chcf insulin use: without chcf use Diabetes mellitus complication status: with kidney complications Diabetes mellitus complication detail: with chronic kidney disease Chronic kidney disease stage: stage 2 (mild) Qualified Code(s): E11.22 - Type 2 diabetes mellitus with diabetic chronic kidney disease; N18.2 - Chronic kidney disease, stage 2 (mild) Code(s): E11.9 - TYPE 2 DIABETES MELLITUS WITHOUT COMPLICATIONS
[2021-04-25] MEDS: HUMALOG SQ PRN ×2 (18:09→22:02)
[2021-04-25] MEDS ORDERED: ZOCOR 20MG PO SCH (22:00)
[2021-04-25] MEDS ORDERED: NON-FORMULARY ITEM (Atorvastatin Calcium [Atorvastatin Calcium] 20 MG Tablet) PO SCH (22:00)
[2021-04-26] MEDS: CLINDAMYCIN-D5W 600 MG/50 ML*** 600 MG/50 ML BAG IV SCH ×2 (00:26→05:43)
[2021-04-26] MEDS: Sodium Chloride 0.9% 1000 ML 1,000 ML IV SCH (03:22)
[2021-04-26] MEDS: Zosyn 3.375 GM Vial 3.375 GM in Sodium Chloride 100ML MINI-BAG PLUS 100 ML IV SCH (05:43)
[2021-04-26 06:03] LABS: ANION GAP 10.1 MEQ/L (5-15); BLOOD UREA NITROGEN 17 mg/dL (9-20); CHLORIDE 105 mmol/L (98-107); Calcium 7.8 mg/dL (8.4-10.2); Carbon Dioxide 26 mmol/L (22-30); Creatinine 1 0.88 mg/dL (0.66-1.25); EST GLOMERULAR FILTRATION RATE > 60.0 ML/MIN; Glucose 137 mg/dL (74-106); Potassium 4.1 mmol/L (3.5-5.1); SODIUM 137 mmol/L (137-145)
[2021-04-26 06:11] LABS: Absolute Neutrophil Ct (ANC) 4.12 (1.4-6.9); BASOPHIL % 0.5 % (0.0-0.4); Basophil (Absolute #) 0.04 (0-0.4); Hematocrit 38.1 % (42-50); Lymphocyte (Absolute #) 2.07 (1.0-4.6); Lymphocytes % 27.8 % (24.0-44.0); Mean Cell Volume 95.3 fl (78-100); Mean Corpuscular Hgb Concent. 31.5 g/dl (32-36); Mean Platelet Volume 9.3 fl (7.5-11.0); Monocyte (Absolute #) 0.91 (0.0-1.3); Monocytes % 12.2 % (0.0-12.0); Neutrophil % 55.5 % (36.0-66.0); Platelet Count 163 K/mm3 (150-450); Red Cell Distribution Width 16.2 % (11.5-14.0); White Blood Count 7.4 K/mm3 (4.0-10.5)
--- NOTE | 2021-04-26 08:56 | PCM.DS ---
Discharge Summary Date of Admission: 04/24/21 23:37 Admitting Physician: ROWENA VIEYRA Primary Care Provider: ROWENA VIEYRA Allergies Allergies No Known Drug Allergies Allergy (Verified 04/24/21 15:31) Hospital Summary - Hospital Course Hospital Course: patient admitted status post fall, treated for uti and cellulitis left foot, he denies any urinary symptoms. does not feel weak, overall feels fine today. labs are reassuring. - Vitals & Intake/Output Vital Signs: Vital Signs Temperature 98.9 F 04/26/21 07:37 Pulse Rate 74 04/26/21 07:37 Respiratory Rate 16 04/26/21 07:37 Blood Pressure 119/62 04/26/21 07:37 O2 Sat by Pulse Oximetry 94 L 04/26/21 07:37 Intake & Output: Intake & Output 04/23/21 04/24/21 04/25/21 04/26/21 11:59 11:59 11:59 11:59 Intake Total 712 4353 Output Total 225 3748 Balance 487 605 Weight 84.8 kg 84.6 kg - Lab Result Diagrams: 04/26/21 04:45 04/26/21 04:45 Lab Results-Last 24 Hrs: Lab Results-Last 24 Hours 04/25/21 04/25/21 04/25/21 Range/Units 11:28 15:35 16:17 WBC (4.0-10.5) K/mm3 RBC (4.1-5.6) M/mm3 Hgb (12.5-18.0) gm/dl Hct (42-50) % MCV (78-100) fl MCH (26-32) pg MCHC (32-36) g/dl RDW (11.5-14.0) % Plt Count (150-450) K/mm3 MPV (7.5-11.0) fl Gran % (36.0-66.0) % Eos # (Auto) (0-0.5) Absolute Lymphs (auto) (1.0-4.6) Absolute Monos (auto) (0.0-1.3) Lymphocytes % (24.0-44.0) % Monocytes % (0.0-12.0) % Eosinophils % (0.00-5.0) % Basophils % (0.0-0.4) % Absolute Granulocytes (1.4-6.9) Basophils # (0-0.4) Sodium (137-145) mmol/L Potassium (3.5-5.1) mmol/L Chloride (98-107) mmol/L Carbon Dioxide (22-30) mmol/L Anion Gap (5-15) MEQ/L BUN (9-20) mg/dL Creatinine (0.66-1.25) mg/dL Estimated GFR ML/MIN Glucose (74-106) mg/dL POC Glucometer 173 H 201 H (74 to 106) mg/dL Calcium (8.4-10.2) mg/dL Digoxin 0.4 L (0.8-1.9) ng/mL 04/25/21 04/26/21 04/26/21 Range/Units 20:42 04:45 04:45 WBC 7.4 (4.0-10.5) K/mm3 RBC 4.00 L (4.1-5.6) M/mm3 Hgb 12.0 L (12.5-18.0) gm/dl Hct 38.1 L (42-50) % MCV 95.3 (78-100) fl MCH 30.0 (26-32) pg MCHC 31.5 L (32-36) g/dl RDW 16.2 H (11.5-14.0) % Plt Count 163 (150-450) K/mm3 MPV 9.3 (7.5-11.0) fl Gran % 55.5 (36.0-66.0) % Eos # (Auto) 0.30 (0-0.5) Absolute Lymphs (auto) 2.07 (1.0-4.6) Absolute Monos (auto) 0.91 (0.0-1.3) Lymphocytes % 27.8 (24.0-44.0) % Monocytes % 12.2 H (0.0-12.0) % Eosinophils % 4.0 (0.00-5.0) % Basophils % 0.5 (0.0-0.4) % Absolute Granulocytes 4.12 (1.4-6.9) Basophils # 0.04 (0-0.4) Sodium 137 (137-145) mmol/L Potassium 4.1 (3.5-5.1) mmol/L Chloride 105 (98-107) mmol/L Carbon Dioxide 26 (22-30) mmol/L Anion Gap 10.1 (5-15) MEQ/L BUN 17 (9-20) mg/dL Creatinine 0.88 (0.66-1.25) mg/dL Estimated GFR > 60.0 ML/MIN Glucose 137 H (74-106) mg/dL POC Glucometer 180 H (74 to 106) mg/dL Calcium 7.8 L (8.4-10.2) mg/dL Digoxin (0.8-1.9) ng/mL 04/26/21 Range/Units 07:29 WBC (4.0-10.5) K/mm3 RBC (4.1-5.6) M/mm3 Hgb (12.5-18.0) gm/dl Hct (42-50) % MCV (78-100) fl MCH (26-32) pg MCHC (32-36) g/dl RDW (11.5-14.0) % Plt Count (150-450) K/mm3 MPV (7.5-11.0) fl Gran % (36.0-66.0) % Eos # (Auto) (0-0.5) Absolute Lymphs (auto) (1.0-4.6) Absolute Monos (auto) (0.0-1.3) Lymphocytes % (24.0-44.0) % Monocytes % (0.0-12.0) % Eosinophils % (0.00-5.0) % Basophils % (0.0-0.4) % Absolute Granulocytes (1.4-6.9) Basophils # (0-0.4) Sodium (137-145) mmol/L Potassium (3.5-5.1) mmol/L Chloride (98-107) mmol/L Carbon Dioxide (22-30) mmol/L Anion Gap (5-15) MEQ/L BUN (9-20) mg/dL Creatinine (0.66-1.25) mg/dL Estimated GFR ML/MIN Glucose (74-106) mg/dL POC Glucometer 145 H (74 to 106) mg/dL Calcium (8.4-10.2) mg/dL Digoxin (0.8-1.9) ng/mL Micro Results-Entire Visit: Microbiology 04/24/21 17:35 Urine Culture - Final Urine, Void Klebsiella Oxytoca Accuchecks Date 04/26/21 Date 04/25/21 Date 04/25/21 Time 07:38 Time 11:35 - Radiology Exams Ordered Rad Exams-Entire Visit: Radiology Procedures Category Date Time Status CERVICAL SPINE WO CONTRAST [CT] Stat Exams 04/24/21 15:33 Completed CHEST 1 VIEW (PORTABLE) Stat Exams 04/24/21 15:53 Completed HEAD WITHOUT CONTRAST [CT] Stat Exams 04/24/21 15:33 Completed - Procedures and Test Procedures and Tests throughout Hospitalization: Therapy Orders & Screens 04/25/21 00:55 OT Screen per Nursing Assess ONCE Comment: Protocol Order Physician Instructions: Greater than 3 points order OT Admission Screening Reason For Exam: Triggered on Admission Diagnosis: Left lower extremity cellulitis Open Wound/Cellutlitis/Pressure Ulcers: Yes Acute Fx/ORIF/Change in wt bearing status: No Severe MUSCULOSKELETAL pain: No ADL Dysfunction: No Acute CVA w/Hemiparesis/Hemiplegia: No Decreased Functional Mobility/Strength: No Sprain/Strain: No Acute Post-op Mobility Dysfunction: No Total Points: 5 PT Screen per Nursing Assess ONCE Comment: Protocol Order Physician Instructions: Greater than 3 points order PT Admission Screenin Reason For Exam: Triggered on Admission Diagnosis: Left lower extremity cellulitis Open Wound/Cellutlitis/Pressure Ulcers: Yes Acute Fx/ORIF/Change in wt bearing status: No Severe MUSCULOSKELETAL pain: No ADL Dysfunction: No Acute CVA w/Hemiparesis/Hemiplegia: No Decreased Functional Mobility/Strength: No Sprain/Strain: No Acute Post-op Mobility Dysfunction: No Total Points: 5 04/25/21 15:25 PT Eval & Treat ( Order) ONCE Reason for Eval:: L great toe may need debridement Diagnosis: Left lower extremity cellulitis Discharge Exam General Appearance: no apparent distress Neurologic Exam: alert, oriented x 3, cooperative Respiratory Exam: normal breath sounds, lungs clear, No respiratory distress Cardiovascular Exam: regular rate/rhythm, normal heart sounds Gastrointestinal/Abdomen Exam: soft, No tenderness, No mass Extremity Exam: normal inspection, normal range of motion, other (mild erythema medial left great toe, minimal erythema left lower leg) Final Diagnosis/Problem List - Final Discharge Diagnosis/Problem (1) Left leg cellulitis Current Visit: Yes Status: Acute Assessment & Plan: home on bactrim for cellulitis and UTI Code(s): L03.116 - CELLULITIS OF LEFT LOWER LIMB (2) Acute urinary tract infection Current Visit: No Status: Acute Assessment & Plan: klebsiella, sens to bactrim Code(s): N39.0 - URINARY TRACT INFECTION, SITE NOT SPECIFIED (3) Fall Current Visit: Yes Status: Acute Code(s): W19.XXXA - UNSPECIFIED FALL, INITIAL ENCOUNTER - Discharge Disposition: Home, Self-Care Condition: Stable Prescriptions: New Smz/Tmp Ds Tablet [Bactrim Ds Tablet] 1 tab PO Q12H #14 tablet Continue Atorvastatin Calcium 20 mg PO HS Aspirin EC 81 mg [Ecotrin 81 mg] 81 mg PO DAILY Cholecalciferol (Vitamin D3) [Vitamin D3] 1 tab PO DAILY Carvedilol 3.125 mg [Coreg 3.125 MG] 3.125 mg PO BID Digoxin 250 mcg PO DAILY Clopidogrel Bisulfate 75 mg [PLAVIX 75 MG Tablet] 75 mg PO DAILY Empagliflozin [Jardiance] 25 mg PO DAILY Dulaglutide [Trulicity] 3 mg SQ WEEKLY Glipizide/Metformin HCl [Glipizide-Metformin 5-500 mg] 1 tablet PO TID Gabapentin 300 mg [Neurontin 300 mg] 300 mg PO TID Mirabegron [Myrbetriq] 50 mg PO DAILY Multivitamin 1 tablet PO DAILY Follow up with: ROWENA VIEYRA MD [Primary Care Provider] - 1 Week
[2021-04-26] MEDS ORDERED: DIGOXIN 250 MCG PO SCH (10:00)
[2021-04-26] MEDS ORDERED: NON-FORMULARY ITEM (Mirabegron [Myrbetriq] 50 MG Tab.Er.24h) PO SCH (10:00)
[2021-04-26] MEDS ORDERED: NON-FORMULARY ITEM (Empagliflozin [Jardiance] 10 MG Tablet) PO SCH (10:00)
[2021-04-26 17:06] VITALS: BP 119/62; PULSE 74; O2SAT 94
== END 2021-04-26 09:56 | disposition home or self-care (01) ==
LOC: ED 15:29 → MED SURG 23:37
PROVIDERS: ADMIT Family Medicine; ATTEND Family Medicine
DX: L03.116 Cellulitis of left lower limb (principal); S00.03XA Contusion of scalp, initial encounter; W19.XXXA Unspecified fall, initial encounter; N39.0 Urinary tract infection, site not specified; R53.1 Weakness; R00.0 Tachycardia, unspecified; E11.22 Type 2 diabetes mellitus with diabetic chronic kidney disease; N18.2 Chronic kidney disease, stage 2 (mild); I25.10 Atherosclerotic heart disease of native coronary artery without angina pectoris; E78.5 Hyperlipidemia, unspecified; I12.9 Hypertensive chronic kidney disease with stage 1 through stage 4 chronic kidney disease, or unspecified chronic kidney disease; Z79.899 Other long term (current) drug therapy; Z20.828 Contact with and (suspected) exposure to other viral communicable diseases; Z79.01 Long term (current) use of anticoagulants; R42 Dizziness and giddiness
CPT/HCPCS: 0241U; 36415; 70450; 71045; 72125; 80048; 80053; 80162; 81001; 82947; 83605; 83735; 83880; 84484; 85025; 87077; 87086; 87186; 93268; 99285; G0378; J1650; J1817; A9270-GY

== ENCOUNTER 2021-06-10 14:50 | Observation (INO) | payer MEDICARE ==
--- NOTE | 2021-06-10 15:23 | ERPHSYRPT ---
- History of Present Illness Time Seen by Provider: 06/10/21 14:52 Source: patient Exam Limitations: no limitations Patient Subjective Stated Complaint: "I've been dizzy and weak." Triage Nursing Assessment: patient reported having a two day onset of "dizzy and weak." He described the dizziness ass "my head just feels off." He also reported general malaise. He denied any recent injuries. He denied any vision Physician History: 85 years old male with history of coronary artery disease status post stenting, hypertension, hyperlipidemia, congestive heart failure presented in the ER with chief complaint of dizziness since yesterday. Patient reports he has a funny feeling and cannot exactly describe what he feels but denies spinning sensation, numbness tingling or focal weakness. Denies any chest pain palpitations or shortness of breath. No fever chills or cough reported. Timing/Duration: yesterday, gradual onset, worse Severity: moderate Character of Deficits: none Deficits: no difficulties Baseline/Normal Cognition: alert oriented x 3 Current Cognition: alert oriented x 3 Associated Symptoms: fatigue, No confusion, No fever, No chills, No loss of consciousness, No vomiting, No weakness, No insomnia, No numbness/tingling in legs/feet, No paresthesia, No ringing in ears, No seizures, No slurred speech, No trouble walking, No vision changes, No chest pain, No headache Allergies/Adverse Reactions: No Known Drug Allergies Allergy (Verified 04/24/21 15:31) Home Medications: Aspirin EC 81 mg [Ecotrin 81 mg] 81 mg PO DAILY 04/25/21 [History] Atorvastatin Calcium 20 mg PO HS 04/25/21 [History] Carvedilol 3.125 mg [Coreg 3.125 MG] 3.125 mg PO BID 04/25/21 [History] Cholecalciferol (Vitamin D3) [Vitamin D3] 1 tab PO DAILY 04/25/21 [History] Clopidogrel Bisulfate 75 mg [PLAVIX 75 MG Tablet] 75 mg PO DAILY 04/25/21 [History] Digoxin 250 mcg PO DAILY 04/25/21 [History] Dulaglutide [Trulicity] 3 mg SQ WEEKLY 04/25/21 [History] Empagliflozin [Jardiance] 25 mg PO DAILY 04/25/21 [History] Gabapentin 300 mg [Neurontin 300 mg] 300 mg PO TID 04/25/21 [History] Glipizide/Metformin HCl [Glipizide-Metformin 5-500 mg] 1 tablet PO TID 04/25/21 [History] Mirabegron [Myrbetriq] 25 mg PO DAILY 04/25/21 [History] Multivitamin 1 tablet PO DAILY 04/25/21 [History] cephALEXin [Cephalexin] 500 mg PO TID 06/10/21 [History] Hx Tetanus, Diphtheria Vaccination/Date Given: Yes Hx Influenza Vaccination/Date Given: Yes Hx Pneumococcal Vaccination/Date Given: Yes Travel Risk - International Travel Have you traveled outside of the country in past 3 weeks: No - Coronavirus Screening Are you exhibiting any of the following symptoms?: No Close contact with a COVID-19 positive Pt in past 14-21 Days: No - Vaccine Status Have you recieved a Covid-19 vaccination: Yes 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 - Vaccination Dates Date of 2cond Vaccination (if applicable): 02/2021 - Review of Systems Constitutional: Fatigue, Weakness Eyes: No Symptoms Ears, Nose, & Throat: No Symptoms Respiratory: No Symptoms Cardiac: No Symptoms Abdominal/Gastrointestinal: No Symptoms Genitourinary Symptoms: No Symptoms Musculoskeletal: No Symptoms Skin: No Symptoms Neurological: Dizziness Psychological: No Symptoms Endocrine: No Symptoms Hematologic/Lymphatic: No Symptoms - Past Medical History Pertinent Past Medical History: Yes Neurological History: No Pertinent History ENT History: Cataracts Cardiac History: Coronary Artery Disease Respiratory History: No Pertinent History Endocrine Medical History: Diabetes Type II Musculoskeletal History: No Pertinent History GI Medical History: No Pertinent History History: No Pertinent History Psycho-Social History: No Pertinent History Male Reproductive Disorders: Prostate Problems Other Medical History: back surgery (discectomy), 5 stents in heart(2015) - Past Surgical History Past Surgical History: Yes Neuro Surgical History: No Pertinent History Cardiac: Cardiac Catheterization, Cardiac Stent Respiratory: No Pertinent History Gastrointestinal: Appendectomy Genitourinary: No Pertinent History Musculoskeletal: Other Male Surgical History: Prostate Surgery Other Surgical History: achilles tendon, back surgery - Social History Smoking Status: Never smoker Exposure to second hand smoke: No Drug Use: none Patient Lives Alone: No - Nursing Vital Signs Nursing Vital Signs: Initial Vital Signs Pulse Rate 90 06/10/21 14:52 Respiratory Rate 18 06/10/21 14:52 Blood Pressure 149/86 06/10/21 14:52 O2 Sat by Pulse Oximetry 98 06/10/21 14:52 Pain Scale Pain Intensity 0 - Sherley Coma Scale Best Eye Response ([place]ley): (4) open spontaneously Best Verbal Response ([place]): (5) oriented Best Motor Response ([place]): (6) obeys commands [place] Total: 15 - Physical Exam General Appearance: no apparent distress, alert Eye Exam: bilateral eye: normal inspection, PERRL, EOMI Ears, Nose, Throat Exam: normal ENT inspection, TMs normal, pharynx normal, moist mucous membranes Neck Exam: normal inspection, non-tender, supple, full range of motion, No meningismus Respiratory: normal breath sounds, lungs clear Cardiovascular: regular rate/rhythm, normal heart sounds Gastrointestinal: soft, normal bowel sounds, No tenderness Back Exam: normal inspection, normal range of motion Extremity Exam: normal inspection, normal range of motion, pelvis stable Mental Status: alert, oriented x 3, 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 Exam: normal hearing, normal speech, PERRL Coordination/Gait: normal finger to nose, normal cerebellar function Motor/Sensory: no motor deficit, no sensory deficit, no pronator drift, negative Babinski's sign DTR: bicep (R): 2+, bicep (L): 2+, knee (R): 2+, knee (L): 2+ Skin Exam: normal color SpO2 Interpretation: normal SpO2: 98 O2 Delivery: Room Air - Course EKG Interpreted by Me: RATE (94), Sinus Rhythm, Left [place] Deviation, NORMAL INTERVALS, Other (PVC, anteroinferior Q waves) Ordered Tests: Medication Summary Discontinued Medications Generic Name Dose Route Start Last Admin Trade Name Freq PRN Reason Stop Dose Admin Acetaminophen 650 mg 06/10/21 21:50 Acetaminophen 325 Mg Tablet PO 07/10/21 21:49 Q4H PRN PRN PAIN AND/OR FEVER Albuterol/Ipratropium 3 ml 06/10/21 21:50 Ipratropium/Albuterol Sulfate 3 Ml Ampul.Neb IH 07/10/21 21:49 Q4HPRN PRN SHORTNESS OF BREATH/WHEEZING Aspirin 81 mg 06/11/21 10:00 06/11/21 09:26 Aspirin 81 Mg Tablet.Ec PO 07/11/21 09:59 81 mg DAILY MANAV Administration Carvedilol 3.125 mg 06/11/21 10:00 06/11/21 09:25 Carvedilol 3.125 Mg Tablet PO 07/11/21 09:59 3.125 mg BID MANAV Administration Clopidogrel Bisulfate 75 mg 06/11/21 10:00 06/11/21 09:26 Clopidogrel Bisulfate 75 Mg Tablet PO 07/11/21 09:59 75 mg DAILY MANAV Administration Digoxin 0.25 mg 06/11/21 10:00 06/11/21 09:26 Digoxin 0.125 Mg Tablet PO 07/11/21 09:59 0.25 mg DAILY MANAV Administration Gabapentin 300 mg 06/11/21 10:00 06/11/21 09:26 Gabapentin 300 Mg Capsule PO 07/11/21 09:59 300 mg TID MANAV Administration Sodium Chloride 500 mls @ 500 mls/hr 06/10/21 19:19 06/10/21 20:31 Sodium Chloride 0.9% 500 Ml IV 06/10/21 20:18 Infused .Q1H ONE Infusion Vancomycin HCl 2 gm in 400 mls @ 133.333 mls/hr 06/10/21 19:19 06/10/21 19:30 Vancomycin 2 Gram/400 Ml Bag IV 06/10/21 22:18 133.333 ml/hr STAT ONE 133.33 mls/hr Administration Vancomycin HCl Confirm 06/10/21 19:25 Vancomycin 2 Gram/400 Ml Bag Administered 06/10/21 19:26 Dose 2 gm in 400 mls @ ud IV .STK-MED ONE Sodium Chloride Confirm 06/10/21 19:25 Sodium Chloride 0.9% 500 Ml Administered 06/10/21 19:26 Dose 500 mls @ ud IV .STK-MED ONE Vancomycin HCl 1 gm/ Sodium 250 mls @ 125 mls/hr 06/10/21 22:00 06/10/21 22:33 Chloride IV 07/10/21 21:59 Not Given Q12H MANAV Vancomycin HCl 1.25 gm in 250 mls @ 166.667 mls/hr 06/11/21 10:00 06/11/21 09:26 Vancomycin 1.25 Gm/250 Ml Bag IV 06/14/21 09:59 166.667 mls/hr DAILY MANAV Administration Insulin Human Lispro 0 unit 06/11/21 08:42 Insulin Lispro 1 Unit SQ 07/11/21 08:41 UD PRN HYPERGLYCEMIA Mirabegron 25 mg 06/11/21 10:00 06/11/21 09:26 Mirabegron 25 Mg Tab.Er.24h PO 07/11/21 09:59 25 mg DAILY MANAV Administration Multivitamins Therapeutic 1 tab 06/11/21 10:00 06/11/21 09:26 Multivitamins,Therapeutic 1 Tab Tab PO 07/11/21 09:59 1 tab DAILY MANAV Administration Non-Formulary Medication 1 each 06/11/21 10:00 Pharmacy Dose Request: Vancomycin 1 Each MC 07/11/21 09:59 QAM MANAV Ondansetron HCl 4 mg 06/10/21 21:50 Ondansetron Hcl 4 Mg/2 Ml Vial IV 07/10/21 21:49 Q6H PRN PRN NAUSEA/VOMITING Pantoprazole Sodium 40 mg 06/11/21 10:00 06/11/21 09:26 Pantoprazole 40 Mg Vial IV 07/11/21 09:59 40 mg Q24H10 MANAV Administration Simvastatin 20 mg 06/11/21 22:00 Simvastatin 20 Mg Tablet PO 07/11/21 21:59 HS [facility] Lab/Rad Data: Laboratory Result Diagrams 06/10/21 15:45 06/10/21 15:40 Laboratory Results 06/10/21 06/10/21 06/10/21 Range/Units 21:35 20:03 18:37 WBC (4.0-10.5) K/mm3 RBC (4.1-5.6) M/mm3 Hgb (12.5-18.0) gm/dl Hct (42-50) % MCV (78-100) fl MCH (26-32) pg MCHC (32-36) g/dl RDW (11.5-14.0) % Plt Count (150-450) K/mm3 MPV (7.5-11.0) fl Gran % (36.0-66.0) % Eos # (Auto) (0-0.5) Absolute Lymphs (auto) (1.0-4.6) Absolute Monos (auto) (0.0-1.3) Lymphocytes % (24.0-44.0) % Monocytes % (0.0-12.0) % Eosinophils % (0.00-5.0) % Basophils % (0.0-0.4) % Absolute Granulocytes (1.4-6.9) Basophils # (0-0.4) Sodium (137-145) mmol/L Potassium (3.5-5.1) mmol/L Chloride (98-107) mmol/L Carbon Dioxide (22-30) mmol/L Anion Gap (5-15) MEQ/L BUN (9-20) mg/dL Creatinine (0.66-1.25) mg/dL Estimated GFR ML/MIN Glucose (74-106) mg/dL Lactic Acid (0.4-2.0) Calcium (8.4-10.2) mg/dL Magnesium (1.6-2.3) mg/dL Total Bilirubin (0.2-1.3) mg/dL AST (17-59) U/L ALT (0-50) U/L Alkaline Phosphatase (38-126) U/L Troponin I < 0.012 < 0.012 (0.000-0.034) ng/mL NT-Pro-B Natriuret Pep (0-1800) pg/mL Serum Total Protein (6.3-8.2) g/dL Albumin (3.5-5.0) g/dL Urine Color (YELLOW) Urine Appearance (CLEAR) Urine pH (5-6) Ur Specific [place] (1.005-1.025) Urine Protein (Negative) Urine Ketones (NEGATIVE) Urine Blood (0-5) Bronson/ul Urine Nitrite (NEGATIVE) Urine Bilirubin (NEGATIVE) Urine Urobilinogen (0-1) mg/dL Ur Leukocyte Esterase (NEGATIVE) Urine WBC (Auto) (0-5) /HPF Urine RBC (Auto) (0-2) /HPF U Epithel Cells (Auto) (FEW) /HPF Urine Bacteria (Auto) (NEGATIVE) /HPF Urine Mucus (Auto) (NEGATIVE) /HPF Urine Culture Reflexed (NO) Urine Glucose (NEGATIVE) mg/dL Influenza Type A Ag NEGATIVE (NEGATIVE) Influenza Type B Ag NEGATIVE (NEGATIVE) RSV (PCR) NEGATIVE (Negative) SARS-CoV-2 (PCR) NEGATIVE (NEGATIVE) 06/10/21 06/10/21 06/10/21 Range/Units 17:40 16:56 15:45 WBC 7.4 (4.0-10.5) K/mm3 RBC 4.69 (4.1-5.6) M/mm3 Hgb 14.4 (12.5-18.0) gm/dl Hct 44.8 (42-50) % MCV 95.5 (78-100) fl MCH 30.7 (26-32) pg MCHC 32.1 (32-36) g/dl RDW 15.9 H (11.5-14.0) % Plt Count 141 L (150-450) K/mm3 MPV 9.2 (7.5-11.0) fl Gran % 66.1 H (36.0-66.0) % Eos # (Auto) 0.20 (0-0.5) Absolute Lymphs (auto) 1.38 (1.0-4.6) Absolute Monos (auto) 0.90 (0.0-1.3) Lymphocytes % 18.6 L (24.0-44.0) % Monocytes % 12.1 H (0.0-12.0) % Eosinophils % 2.7 (0.00-5.0) % Basophils % 0.5 (0.0-0.4) % Absolute Granulocytes 4.91 (1.4-6.9) Basophils # 0.04 (0-0.4) Sodium (137-145) mmol/L Potassium (3.5-5.1) mmol/L Chloride (98-107) mmol/L Carbon Dioxide (22-30) mmol/L Anion Gap (5-15) MEQ/L BUN (9-20) mg/dL Creatinine (0.66-1.25) mg/dL Estimated GFR ML/MIN Glucose (74-106) mg/dL Lactic Acid 1.4 (0.4-2.0) Calcium (8.4-10.2) mg/dL Magnesium (1.6-2.3) mg/dL Total Bilirubin (0.2-1.3) mg/dL AST (17-59) U/L ALT (0-50) U/L Alkaline Phosphatase (38-126) U/L Troponin I (0.000-0.034) ng/mL NT-Pro-B Natriuret Pep (0-1800) pg/mL Serum Total Protein (6.3-8.2) g/dL Albumin (3.5-5.0) g/dL Urine Color YELLOW (YELLOW) Urine Appearance SLIGHTLY CLOUDY (CLEAR) Urine pH 5.0 (5-6) Ur Specific [place] 1.033 (1.005-1.025) Urine Protein NEGATIVE (Negative) Urine Ketones MODERATE (NEGATIVE) Urine Blood NEGATIVE (0-5) Bronson/ul Urine Nitrite NEGATIVE (NEGATIVE) Urine Bilirubin NEGATIVE (NEGATIVE) Urine Urobilinogen NEGATIVE (0-1) mg/dL Ur Leukocyte Esterase NEGATIVE (NEGATIVE) Urine WBC (Auto) 3-5 (0-5) /HPF Urine RBC (Auto) NONE (0-2) /HPF U Epithel Cells (Auto) RARE (FEW) /HPF Urine Bacteria (Auto) NONE (NEGATIVE) /HPF Urine Mucus (Auto) SLIGHT (NEGATIVE) /HPF Urine Culture Reflexed NO (NO) Urine Glucose >=500 (NEGATIVE) mg/dL Influenza Type A Ag (NEGATIVE) Influenza Type B Ag (NEGATIVE) RSV (PCR) (Negative) SARS-CoV-2 (PCR) (NEGATIVE) 06/10/21 06/10/21 06/10/21 Range/Units 15:40 15:40 15:30 WBC (4.0-10.5) K/mm3 RBC (4.1-5.6) M/mm3 Hgb (12.5-18.0) gm/dl Hct (42-50) % MCV (78-100) fl MCH (26-32) pg MCHC (32-36) g/dl RDW (11.5-14.0) % Plt Count (150-450) K/mm3 MPV (7.5-11.0) fl Gran % (36.0-66.0) % Eos # (Auto) (0-0.5) Absolute Lymphs (auto) (1.0-4.6) Absolute Monos (auto) (0.0-1.3) Lymphocytes % (24.0-44.0) % Monocytes % (0.0-12.0) % Eosinophils % (0.00-5.0) % Basophils % (0.0-0.4) % Absolute Granulocytes (1.4-6.9) Basophils # (0-0.4) Sodium 136 L (137-145) mmol/L Potassium 4.5 (3.5-5.1) mmol/L Chloride 97 L (98-107) mmol/L Carbon Dioxide 23 (22-30) mmol/L Anion Gap 19.8 H (5-15) MEQ/L BUN 26 H (9-20) mg/dL Creatinine 1.03 (0.66-1.25) mg/dL Estimated GFR > 60.0 ML/MIN Glucose 126 H (74-106) mg/dL Lactic Acid 2.1 H (0.4-2.0) Calcium 8.9 (8.4-10.2) mg/dL Magnesium 2.1 (1.6-2.3) mg/dL Total Bilirubin 0.90 (0.2-1.3) mg/dL AST 24 (17-59) U/L ALT 15 (0-50) U/L Alkaline Phosphatase 79 (38-126) U/L Troponin I < 0.012 (0.000-0.034) ng/mL NT-Pro-B Natriuret Pep 217 (0-1800) pg/mL Serum Total Protein 6.6 (6.3-8.2) g/dL Albumin 4.1 (3.5-5.0) g/dL Urine Color (YELLOW) Urine Appearance (CLEAR) Urine pH (5-6) Ur Specific [place] (1.005-1.025) Urine Protein (Negative) Urine Ketones (NEGATIVE) Urine Blood (0-5) Bronson/ul Urine Nitrite (NEGATIVE) Urine Bilirubin (NEGATIVE) Urine Urobilinogen (0-1) mg/dL Ur Leukocyte Esterase (NEGATIVE) Urine WBC (Auto) (0-5) /HPF Urine RBC (Auto) (0-2) /HPF U Epithel Cells (Auto) (FEW) /HPF Urine Bacteria (Auto) (NEGATIVE) /HPF Urine Mucus (Auto) (NEGATIVE) /HPF Urine Culture Reflexed (NO) Urine Glucose (NEGATIVE) mg/dL Influenza Type A Ag (NEGATIVE) Influenza Type B Ag (NEGATIVE) RSV (PCR) (Negative) SARS-CoV-2 (PCR) (NEGATIVE) - Progress Progress: improved Progress Note: 06/10/21 19:21 Is given a small fluid bolus. Nonfocal neuro exam. CT head is negative. EKG showed sinus rhythm without any ST elevation and negative initial troponin. Chemistry profile showed elevated gap. No UTI. Left big toe is infected and had surgery done in the past by Dr. James and on pressing foul-smelling pus came out. Discussed with Dr. James, started on vancomycin as per his recommendations. Discussed with Dr. Sherman and patient is being admitted. Discussed with : Machelle Will see patient in: hospital (observation) Counseled pt/family regarding: lab results, diagnosis, rad results - Departure Departure Disposition: Observation Clinical Impression: Dizziness, Toe infection Condition: Stable Critical Care Time: No
[2021-06-10 16:07] LABS: Absolute Neutrophil Ct (ANC) 4.91 (1.4-6.9); Basophil (Absolute #) 0.04 (0-0.4); Eosinophil % 2.7 % (0.00-5.0); Hematocrit 44.8 % (42-50); Hemoglobin 14.4 gm/dl (12.5-18.0); Lymphocyte (Absolute #) 1.38 (1.0-4.6); Lymphocytes % 18.6 % (24.0-44.0); Mean Cell Volume 95.5 fl (78-100); Mean Corpuscular Hemoglobin 30.7 pg (26-32); Mean Corpuscular Hgb Concent. 32.1 g/dl (32-36); Mean Platelet Volume 9.2 fl (7.5-11.0); Monocytes % 12.1 % (0.0-12.0); Neutrophil % 66.1 % (36.0-66.0); Platelet Count 141 K/mm3 (150-450); Red Blood Count 4.69 M/mm3 (4.1-5.6); Red Cell Distribution Width 15.9 % (11.5-14.0); White Blood Count 7.4 K/mm3 (4.0-10.5)
--- NOTE | 2021-06-10 16:53 | XRAY ---
Complications: Dizziness. Multiple contiguous axial images obtained through the head without contrast. Comparison: April 24, 2021. Again age-appropriate global atrophy, mild periventricular degenerative micro-ischemia, and remote lacunar infarct right basal ganglia. No acute intracranial hemorrhage, abnormal extra-axial fluid collection, or mass effect. Fourth ventricle is midline without hydrocephalus. Bony calvarium intact. Visualized paranasal sinuses and mastoid air cells are clear. Impression: Continued nonacute senile brain with remote lacunar infarct right basal ganglia.
[2021-06-10 17:08] LABS: ALBUMIN 4.1 g/dL (3.5-5.0); ALKALINE PHOSPHATASE 79 U/L (38-126); ANION GAP 19.8 MEQ/L (5-15); BLOOD UREA NITROGEN 26 mg/dL (9-20); CHLORIDE 97 mmol/L (98-107); Calcium 8.9 mg/dL (8.4-10.2); Carbon Dioxide 23 mmol/L (22-30); Creatinine 1 1.03 mg/dL (0.66-1.25); EST GLOMERULAR FILTRATION RATE > 60.0 ML/MIN; Glucose 126 mg/dL (74-106); MAGNESIUM 2.1 mg/dL (1.6-2.3); Potassium 4.5 mmol/L (3.5-5.1); SGOT/AST 24 U/L (17-59); SGPT/ALT 15 U/L (0-50); SODIUM 136 mmol/L (137-145); Total Protein 6.6 g/dL (6.3-8.2)
--- NOTE | 2021-06-10 17:09 | XRAY ---
Indication: Dizziness. Comparison: April 24, 2021. Portable apical lordotic chest less inflated and remains clear. Heart not enlarged. Bony thorax intact again with osteopenia, degenerative changes, and old right rib fractures. Impression: Nonacute underinflated chest with chronic bony findings.
[2021-06-10 17:10] LABS: Appearance SLIGHTLY CLOUDY (CLEAR); Bilirubin NEGATIVE (NEGATIVE); Blood NEGATIVE Ery/ul (0-5); Epithelial Cells RARE /HPF (FEW); Glucose >=500 mg/dL (NEGATIVE); Ketones MODERATE (NEGATIVE); Leukocyte Esterase NEGATIVE (NEGATIVE); Mucus SLIGHT /HPF (NEGATIVE); Nitrite NEGATIVE (NEGATIVE); Protein,Urine Dip NEGATIVE (Negative); Specific Gravity 1.033 (1.005-1.025); Urobilinogen NEGATIVE mg/dL (0-1)
[2021-06-10 17:28] LABS: NT PRO BNP 217 pg/mL (0-1800)
[2021-06-10] MEDS ORDERED: VANCOMYCIN 2 GRAM/400 ML BAG 2 GM/400 ML PIGGYBACK IV ONE ×2 (19:19→19:25)
[2021-06-10] MEDS ORDERED: Sodium Chloride 0.9% 500 ML 500 ML IV ONE ×2 (19:19→19:25)
[2021-06-10 21:12] LABS: INFLUENZA A NEGATIVE (NEGATIVE); INFLUENZA B NEGATIVE (NEGATIVE); RESPIRATORY SYNCTIAL VIRUS NEGATIVE (Negative); SARS-CoV-2 Xpert Express NEGATIVE (NEGATIVE)
[2021-06-10] MEDS ORDERED: Zofran 4 MG/2 ML VIAL IV PRN (21:50)
[2021-06-10] MEDS ORDERED: TYLENOL 325 MG PO PRN (21:50)
[2021-06-10] MEDS ORDERED: DUONEB 0.5-3 MG/3 ml Neb IH PRN (21:50)
[2021-06-10] MEDS ORDERED: VANCOCIN 1 GM VIAL*** 1 GM in Sodium Chloride 0.9% 250 ML 250 ML IV SCH (22:00)
[2021-06-11 03:47] LABS: Absolute Neutrophil Ct (ANC) 4.09 (1.4-6.9); Basophil (Absolute #) 0.03 (0-0.4); Eosinophil (Absolute #) 0.38 (0-0.5); Hematocrit 42.6 % (42-50); Hemoglobin 13.7 gm/dl (12.5-18.0); Lymphocyte (Absolute #) 2.05 (1.0-4.6); Lymphocytes % 26.8 % (24.0-44.0); Mean Cell Volume 95.9 fl (78-100); Mean Corpuscular Hemoglobin 30.9 pg (26-32); Mean Corpuscular Hgb Concent. 32.2 g/dl (32-36); Mean Platelet Volume 8.7 fl (7.5-11.0); Monocyte (Absolute #) 1.11 (0.0-1.3); Monocytes % 14.5 % (0.0-12.0); Neutrophil % 53.3 % (36.0-66.0); Platelet Count 140 K/mm3 (150-450); Red Blood Count 4.44 M/mm3 (4.1-5.6); White Blood Count 7.7 K/mm3 (4.0-10.5)
[2021-06-11 04:38] LABS: ALBUMIN 3.6 g/dL (3.5-5.0); ALKALINE PHOSPHATASE 72 U/L (38-126); ANION GAP 14.4 MEQ/L (5-15); BLOOD UREA NITROGEN 25 mg/dL (9-20); CHLORIDE 99 mmol/L (98-107); Calcium 8.3 mg/dL (8.4-10.2); Carbon Dioxide 25 mmol/L (22-30); Creatinine 1 0.94 mg/dL (0.66-1.25); EST GLOMERULAR FILTRATION RATE > 60.0 ML/MIN; Glucose 103 mg/dL (74-106); Potassium 4.2 mmol/L (3.5-5.1); SGOT/AST 25 U/L (17-59); SGPT/ALT 13 U/L (0-50); SODIUM 134 mmol/L (137-145); Total Protein 6.1 g/dL (6.3-8.2)
--- NOTE | 2021-06-11 08:39 | PCM.HP ---
History of Present Illness - Chief Complaint Chief Complaint: dizziness History of Present Illness: is a 85 year old male who presented to the ER yesterday with complaints of feeling dizzy, he has had no fever, no chest pain or shortness of breath. He has a known great toe infection, states the dizziness reminds him of a previous episode of sepsis related to a uti. He is feeling better this morning since admission, states he no longer feels dizzy and denies other complaints. Dr James is currently at the bedside debriding and taking a bone biopsy from the toe. - Review of Systems Constitutional: No Fever, No Chills Respiratory: No Cough, No Short Of Breath Cardiac: No Chest Pain, No Edema, No Syncope Abdominal/Gastrointestinal: No Abdominal Pain, No Nausea, No Vomiting, No Diarrhea Genitourinary Symptoms: No Dysuria Musculoskeletal: Other (left great toe infection) Medications & Allergies Home Medications: Home Medication List Aspirin EC 81 mg [Ecotrin 81 mg] 81 mg PO DAILY 04/25/21 [History Confirmed 06/10/21] Atorvastatin Calcium 20 mg PO HS 04/25/21 [History Confirmed 06/10/21] Carvedilol 3.125 mg [Coreg 3.125 MG] 3.125 mg PO BID 04/25/21 [History Confirmed 06/10/21] Cholecalciferol (Vitamin D3) [Vitamin D3] 1 tab PO DAILY 04/25/21 [History Confirmed 06/10/21] Clopidogrel Bisulfate 75 mg [PLAVIX 75 MG Tablet] 75 mg PO DAILY 04/25/21 [History Confirmed 06/10/21] Digoxin 250 mcg PO DAILY 04/25/21 [History Confirmed 06/10/21] Dulaglutide [Trulicity] 3 mg SQ WEEKLY 04/25/21 [History Confirmed 06/10/21] Empagliflozin [Jardiance] 25 mg PO DAILY 04/25/21 [History Confirmed 06/10/21] Gabapentin 300 mg [Neurontin 300 mg] 300 mg PO TID 04/25/21 [History Confirmed 06/10/21] Glipizide/Metformin HCl [Glipizide-Metformin 5-500 mg] 1 tablet PO TID 04/25/21 [History Confirmed 06/10/21] Mirabegron [Myrbetriq] 25 mg PO DAILY 04/25/21 [History Confirmed 06/10/21] Multivitamin 1 tablet PO DAILY 04/25/21 [History Confirmed 06/10/21] cephALEXin [Cephalexin] 500 mg PO TID 06/10/21 [History Confirmed 06/10/21] Allergies/Adverse Reactions: Allergies Allergy/AdvReac Type Severity Reaction Status Date / Time No Known Drug Allergies Allergy Verified 04/24/21 15:31 - Past Medical History Past Medical History: Yes Neurological History: No Pertinent History ENT History: Cataracts Cardiac History: Coronary Artery Disease Respiratory History: No Pertinent History Endocrine Medical History: Diabetes Type II Musculoskelatal History: No Pertinent History GI Medical History: No Pertinent History History: No Pertinent History Pyscho-Social History: No Pertinent History Male Reproductive Disorders: Prostate Problems Comment: back surgery (discectomy), 5 stents in heart(2014) - Past Surgical History Past Surgical History: Yes Neuro Surgical History: No Pertinent History Cardiac History: Cardiac Catheterization, Cardiac Stent Respiratory Surgery: No Pertinent History GI Surgical History: Appendectomy Genitourinary Surgical Hx: No Pertinent History Musculskeletal Surgical Hx: Other Male Surgical History: Prostate Surgery Other Surgical History: achilles tendon, back surgery - Social History Smoking Status: Never smoker Exposure to second hand smoke: No Alcohol: None Drug Use: none - Physical Exam Vital Signs: Vital Signs - 24 hr Temp Pulse Resp BP Pulse Ox 06/11/21 08:00 97.5 F 86 19 130/64 95 06/11/21 03:35 97.5 F 86 20 129/71 93 L 06/10/21 22:04 97.7 F 84 19 144/85 97 06/10/21 21:28 82 18 144/75 95 06/10/21 20:25 84 22 144/76 97 06/10/21 19:23 98 06/10/21 19:00 92 H 15 146/82 97 06/10/21 18:50 90 18 122/82 96 06/10/21 17:00 86 18 149/76 95 06/10/21 16:52 82 18 135/80 97 06/10/21 15:52 83 18 145/90 97 06/10/21 14:52 90 18 149/86 98 General Appearance: no apparent distress, other (hard of hearing) Neurologic Exam: alert, oriented x 3, cooperative Respiratory Exam: normal breath sounds, lungs clear, No respiratory distress Cardiovascular Exam: regular rate/rhythm, normal heart sounds, normal peripheral pulses Gastrointestinal/Abdomen Exam: soft, normal bowel sounds, No tenderness, No mass Extremity Exam: other (left great toe wound, Dr James performing bedside biopsy. does not look necrotic, tissue appears viable) Skin Exam: normal color, warm, dry, No rash Results - Labs Lab/Micro Results: Lab Results-Last 24 Hours 06/10/21 06/10/21 06/10/21 Range/Units 15:30 15:40 15:40 WBC (4.0-10.5) K/mm3 RBC (4.1-5.6) M/mm3 Hgb (12.5-18.0) gm/dl Hct (42-50) % MCV (78-100) fl MCH (26-32) pg MCHC (32-36) g/dl RDW (11.5-14.0) % Plt Count (150-450) K/mm3 MPV (7.5-11.0) fl Gran % (36.0-66.0) % Eos # (Auto) (0-0.5) Absolute Lymphs (auto) (1.0-4.6) Absolute Monos (auto) (0.0-1.3) Lymphocytes % (24.0-44.0) % Monocytes % (0.0-12.0) % Eosinophils % (0.00-5.0) % Basophils % (0.0-0.4) % Absolute Granulocytes (1.4-6.9) Basophils # (0-0.4) Sodium 136 L (137-145) mmol/L Potassium 4.5 (3.5-5.1) mmol/L Chloride 97 L (98-107) mmol/L Carbon Dioxide 23 (22-30) mmol/L Anion Gap 19.8 H (5-15) MEQ/L BUN 26 H (9-20) mg/dL Creatinine 1.03 (0.66-1.25) mg/dL Estimated GFR > 60.0 ML/MIN Glucose 126 H (74-106) mg/dL POC Glucometer (74 to 106) mg/dL Lactic Acid 2.1 H (0.4-2.0) Calcium 8.9 (8.4-10.2) mg/dL Magnesium 2.1 (1.6-2.3) mg/dL Total Bilirubin 0.90 (0.2-1.3) mg/dL AST 24 (17-59) U/L ALT 15 (0-50) U/L Alkaline Phosphatase 79 (38-126) U/L Troponin I < 0.012 (0.000-0.034) ng/mL NT-Pro-B Natriuret Pep 217 (0-1800) pg/mL Serum Total Protein 6.6 (6.3-8.2) g/dL Albumin 4.1 (3.5-5.0) g/dL Urine Color (YELLOW) Urine Appearance (CLEAR) Urine pH (5-6) Ur Specific [place] (1.005-1.025) Urine Protein (Negative) Urine Ketones (NEGATIVE) Urine Blood (0-5) Bronson/ul Urine Nitrite (NEGATIVE) Urine Bilirubin (NEGATIVE) Urine Urobilinogen (0-1) mg/dL Ur Leukocyte Esterase (NEGATIVE) Urine WBC (Auto) (0-5) /HPF Urine RBC (Auto) (0-2) /HPF U Epithel Cells (Auto) (FEW) /HPF Urine Bacteria (Auto) (NEGATIVE) /HPF Urine Mucus (Auto) (NEGATIVE) /HPF Urine Culture Reflexed (NO) Urine Glucose (NEGATIVE) mg/dL Influenza Type A Ag (NEGATIVE) Influenza Type B Ag (NEGATIVE) RSV (PCR) (Negative) SARS-CoV-2 (PCR) (NEGATIVE) 06/10/21 06/10/21 06/10/21 Range/Units 15:45 16:56 17:40 WBC 7.4 (4.0-10.5) K/mm3 RBC 4.69 (4.1-5.6) M/mm3 Hgb 14.4 (12.5-18.0) gm/dl Hct 44.8 (42-50) % MCV 95.5 (78-100) fl MCH 30.7 (26-32) pg MCHC 32.1 (32-36) g/dl RDW 15.9 H (11.5-14.0) % Plt Count 141 L (150-450) K/mm3 MPV 9.2 (7.5-11.0) fl Gran % 66.1 H (36.0-66.0) % Eos # (Auto) 0.20 (0-0.5) Absolute Lymphs (auto) 1.38 (1.0-4.6) Absolute Monos (auto) 0.90 (0.0-1.3) Lymphocytes % 18.6 L (24.0-44.0) % Monocytes % 12.1 H (0.0-12.0) % Eosinophils % 2.7 (0.00-5.0) % Basophils % 0.5 (0.0-0.4) % Absolute Granulocytes 4.91 (1.4-6.9) Basophils # 0.04 (0-0.4) Sodium (137-145) mmol/L Potassium (3.5-5.1) mmol/L Chloride (98-107) mmol/L Carbon Dioxide (22-30) mmol/L Anion Gap (5-15) MEQ/L BUN (9-20) mg/dL Creatinine (0.66-1.25) mg/dL Estimated GFR ML/MIN Glucose (74-106) mg/dL POC Glucometer (74 to 106) mg/dL Lactic Acid 1.4 (0.4-2.0) Calcium (8.4-10.2) mg/dL Magnesium (1.6-2.3) mg/dL Total Bilirubin (0.2-1.3) mg/dL AST (17-59) U/L ALT (0-50) U/L Alkaline Phosphatase (38-126) U/L Troponin I (0.000-0.034) ng/mL NT-Pro-B Natriuret Pep (0-1800) pg/mL Serum Total Protein (6.3-8.2) g/dL Albumin (3.5-5.0) g/dL Urine Color YELLOW (YELLOW) Urine Appearance SLIGHTLY CLOUDY (CLEAR) Urine pH 5.0 (5-6) Ur Specific [place] 1.033 (1.005-1.025) Urine Protein NEGATIVE (Negative) Urine Ketones MODERATE (NEGATIVE) Urine Blood NEGATIVE (0-5) Bronson/ul Urine Nitrite NEGATIVE (NEGATIVE) Urine Bilirubin NEGATIVE (NEGATIVE) Urine Urobilinogen NEGATIVE (0-1) mg/dL Ur Leukocyte Esterase NEGATIVE (NEGATIVE) Urine WBC (Auto) 3-5 (0-5) /HPF Urine RBC (Auto) NONE (0-2) /HPF U Epithel Cells (Auto) RARE (FEW) /HPF Urine Bacteria (Auto) NONE (NEGATIVE) /HPF Urine Mucus (Auto) SLIGHT (NEGATIVE) /HPF Urine Culture Reflexed NO (NO) Urine Glucose >=500 (NEGATIVE) mg/dL Influenza Type A Ag (NEGATIVE) Influenza Type B Ag (NEGATIVE) RSV (PCR) (Negative) SARS-CoV-2 (PCR) (NEGATIVE) 06/10/21 06/10/21 06/10/21 Range/Units 18:37 20:03 21:35 WBC (4.0-10.5) K/mm3 RBC (4.1-5.6) M/mm3 Hgb (12.5-18.0) gm/dl Hct (42-50) % MCV (78-100) fl MCH (26-32) pg MCHC (32-36) g/dl RDW (11.5-14.0) % Plt Count (150-450) K/mm3 MPV (7.5-11.0) fl Gran % (36.0-66.0) % Eos # (Auto) (0-0.5) Absolute Lymphs (auto) (1.0-4.6) Absolute Monos (auto) (0.0-1.3) Lymphocytes % (24.0-44.0) % Monocytes % (0.0-12.0) % Eosinophils % (0.00-5.0) % Basophils % (0.0-0.4) % Absolute Granulocytes (1.4-6.9) Basophils # (0-0.4) Sodium (137-145) mmol/L Potassium (3.5-5.1) mmol/L Chloride (98-107) mmol/L Carbon Dioxide (22-30) mmol/L Anion Gap (5-15) MEQ/L BUN (9-20) mg/dL Creatinine (0.66-1.25) mg/dL Estimated GFR ML/MIN Glucose (74-106) mg/dL POC Glucometer (74 to 106) mg/dL Lactic Acid (0.4-2.0) Calcium (8.4-10.2) mg/dL Magnesium (1.6-2.3) mg/dL Total Bilirubin (0.2-1.3) mg/dL AST (17-59) U/L ALT (0-50) U/L Alkaline Phosphatase (38-126) U/L Troponin I < 0.012 < 0.012 (0.000-0.034) ng/mL NT-Pro-B Natriuret Pep (0-1800) pg/mL Serum Total Protein (6.3-8.2) g/dL Albumin (3.5-5.0) g/dL Urine Color (YELLOW) Urine Appearance (CLEAR) Urine pH (5-6) Ur Specific [place] (1.005-1.025) Urine Protein (Negative) Urine Ketones (NEGATIVE) Urine Blood (0-5) Bronson/ul Urine Nitrite (NEGATIVE) Urine Bilirubin (NEGATIVE) Urine Urobilinogen (0-1) mg/dL Ur Leukocyte Esterase (NEGATIVE) Urine WBC (Auto) (0-5) /HPF Urine RBC (Auto) (0-2) /HPF U Epithel Cells (Auto) (FEW) /HPF Urine Bacteria (Auto) (NEGATIVE) /HPF Urine Mucus (Auto) (NEGATIVE) /HPF Urine Culture Reflexed (NO) Urine Glucose (NEGATIVE) mg/dL Influenza Type A Ag NEGATIVE (NEGATIVE) Influenza Type B Ag NEGATIVE (NEGATIVE) RSV (PCR) NEGATIVE (Negative) SARS-CoV-2 (PCR) NEGATIVE (NEGATIVE) 06/10/21 06/11/21 06/11/21 Range/Units 22:32 00:30 03:34 WBC (4.0-10.5) K/mm3 RBC (4.1-5.6) M/mm3 Hgb (12.5-18.0) gm/dl Hct (42-50) % MCV (78-100) fl MCH (26-32) pg MCHC (32-36) g/dl RDW (11.5-14.0) % Plt Count (150-450) K/mm3 MPV (7.5-11.0) fl Gran % (36.0-66.0) % Eos # (Auto) (0-0.5) Absolute Lymphs (auto) (1.0-4.6) Absolute Monos (auto) (0.0-1.3) Lymphocytes % (24.0-44.0) % Monocytes % (0.0-12.0) % Eosinophils % (0.00-5.0) % Basophils % (0.0-0.4) % Absolute Granulocytes (1.4-6.9) Basophils # (0-0.4) Sodium (137-145) mmol/L Potassium (3.5-5.1) mmol/L Chloride (98-107) mmol/L Carbon Dioxide (22-30) mmol/L Anion Gap (5-15) MEQ/L BUN (9-20) mg/dL Creatinine (0.66-1.25) mg/dL Estimated GFR ML/MIN Glucose (74-106) mg/dL POC Glucometer 132 H (74 to 106) mg/dL Lactic Acid (0.4-2.0) Calcium (8.4-10.2) mg/dL Magnesium (1.6-2.3) mg/dL Total Bilirubin (0.2-1.3) mg/dL AST (17-59) U/L ALT (0-50) U/L Alkaline Phosphatase (38-126) U/L Troponin I < 0.012 < 0.012 (0.000-0.034) ng/mL NT-Pro-B Natriuret Pep (0-1800) pg/mL Serum Total Protein (6.3-8.2) g/dL Albumin (3.5-5.0) g/dL Urine Color (YELLOW) Urine Appearance (CLEAR) Urine pH (5-6) Ur Specific [place] (1.005-1.025) Urine Protein (Negative) Urine Ketones (NEGATIVE) Urine Blood (0-5) Bronson/ul Urine Nitrite (NEGATIVE) Urine Bilirubin (NEGATIVE) Urine Urobilinogen (0-1) mg/dL Ur Leukocyte Esterase (NEGATIVE) Urine WBC (Auto) (0-5) /HPF Urine RBC (Auto) (0-2) /HPF U Epithel Cells (Auto) (FEW) /HPF Urine Bacteria (Auto) (NEGATIVE) /HPF Urine Mucus (Auto) (NEGATIVE) /HPF Urine Culture Reflexed (NO) Urine Glucose (NEGATIVE) mg/dL Influenza Type A Ag (NEGATIVE) Influenza Type B Ag (NEGATIVE) RSV (PCR) (Negative) SARS-CoV-2 (PCR) (NEGATIVE) 06/11/21 06/11/21 06/11/21 Range/Units 03:34 03:34 07:21 WBC 7.7 (4.0-10.5) K/mm3 RBC 4.44 (4.1-5.6) M/mm3 Hgb 13.7 (12.5-18.0) gm/dl Hct 42.6 (42-50) % MCV 95.9 (78-100) fl MCH 30.9 (26-32) pg MCHC 32.2 (32-36) g/dl RDW 16.0 H (11.5-14.0) % Plt Count 140 L (150-450) K/mm3 MPV 8.7 (7.5-11.0) fl Gran % 53.3 (36.0-66.0) % Eos # (Auto) 0.38 (0-0.5) Absolute Lymphs (auto) 2.05 (1.0-4.6) Absolute Monos (auto) 1.11 (0.0-1.3) Lymphocytes % 26.8 (24.0-44.0) % Monocytes % 14.5 H (0.0-12.0) % Eosinophils % 5.0 (0.00-5.0) % Basophils % 0.4 (0.0-0.4) % Absolute Granulocytes 4.09 (1.4-6.9) Basophils # 0.03 (0-0.4) Sodium 134 L (137-145) mmol/L Potassium 4.2 (3.5-5.1) mmol/L Chloride 99 (98-107) mmol/L Carbon Dioxide 25 (22-30) mmol/L Anion Gap 14.4 (5-15) MEQ/L BUN 25 H (9-20) mg/dL Creatinine 0.94 (0.66-1.25) mg/dL Estimated GFR > 60.0 ML/MIN Glucose 103 (74-106) mg/dL POC Glucometer 116 H (74 to 106) mg/dL Lactic Acid (0.4-2.0) Calcium 8.3 L (8.4-10.2) mg/dL Magnesium (1.6-2.3) mg/dL Total Bilirubin 0.60 (0.2-1.3) mg/dL AST 25 (17-59) U/L ALT 13 (0-50) U/L Alkaline Phosphatase 72 (38-126) U/L Troponin I (0.000-0.034) ng/mL NT-Pro-B Natriuret Pep (0-1800) pg/mL Serum Total Protein 6.1 L (6.3-8.2) g/dL Albumin 3.6 (3.5-5.0) g/dL Urine Color (YELLOW) Urine Appearance (CLEAR) Urine pH (5-6) Ur Specific [place] (1.005-1.025) Urine Protein (Negative) Urine Ketones (NEGATIVE) Urine Blood (0-5) Bronson/ul Urine Nitrite (NEGATIVE) Urine Bilirubin (NEGATIVE) Urine Urobilinogen (0-1) mg/dL Ur Leukocyte Esterase (NEGATIVE) Urine WBC (Auto) (0-5) /HPF Urine RBC (Auto) (0-2) /HPF U Epithel Cells (Auto) (FEW) /HPF Urine Bacteria (Auto) (NEGATIVE) /HPF Urine Mucus (Auto) (NEGATIVE) /HPF Urine Culture Reflexed (NO) Urine Glucose (NEGATIVE) mg/dL Influenza Type A Ag (NEGATIVE) Influenza Type B Ag (NEGATIVE) RSV (PCR) (Negative) SARS-CoV-2 (PCR) (NEGATIVE) - Radiology Impressions Radiology Exams & Impressions: Radiology Procedures Category Date Time Status CHEST 1 VIEW (PORTABLE) Stat Exams 06/10/21 15:20 Completed HEAD WITHOUT CONTRAST [CT] Stat Exams 06/10/21 15:20 Completed TOE(S) (MIN 2 VIEWS) Stat Exams 06/10/21 19:03 Taken Assessment/Plan (1) Diabetic ulcer of toe Current Visit: Yes Status: Acute Assessment & Plan: appreciate podiatry input, continue vanc and wound care per Dr James. 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 Code(s): E11.9 - TYPE 2 DIABETES MELLITUS WITHOUT COMPLICATIONS (3) Coronary artery disease Current Visit: Yes Status: Acute Assessment & Plan: continue digoxin, asa and plavix Code(s): I25.10 - ATHSCL HEART DISEASE OF [place] CORONARY ARTERY W/O ANG PCTRS
[2021-06-11] MEDS ORDERED: HUMALOG SQ PRN (08:42)
--- NOTE | 2021-06-11 08:56 | XRAY ---
Indication: Great toe infection. Comparison: None 2 view left great toe demonstrates mild osteopenia, mild degenerative changes, and soft tissue swelling with overlying bandage material. No other bony, articular, or soft tissue abnormalities.
--- NOTE | 2021-06-11 09:05 | PCM.CONS ---
Podiatry HPI - Consult Date of Consultation Date: 06/11/21 Reason for Consult: Diabetic foot infection left hallux Consulting Provider: EDDIE SAMANO DPM - [facility] History of Present Illness: Mr. Colindres is a very pleasant 85-year-old male who is known to my service for concerns over a diabetic foot ulcer. On Monday patient presented to my clinic with concerns of infection of great toe. At that time I was only able to exp ress a very small amount of purulent drainage which was cultured demonstrating staph aureus resistant to most antibiotics except for clindamycin. Patient has had a recurrent history with this lower extremity back in April he did have an admission secondary to cellulitis of the left lower extremity with indications of sepsis secondary to UTI. Patient at this time is not septic nor does he meet SIRS criteria however he has exhibited symptoms of dizziness yesterday and presented to the emergency department. For this reason he was gained admission due to infected diabetic foot ulceration with clinical symptomatology. He currently indicates this morning after multiple rounds of vancomycin that he is feeling significantly better. Patient is in good spirits with good appetite. He currently denies any other pedal complaints at this time Medications & Allergies Home Medications: Home Medication List Aspirin EC 81 mg [Ecotrin 81 mg] 81 mg PO DAILY 04/25/21 [History Confirmed 06/10/21] Atorvastatin Calcium 20 mg PO HS 04/25/21 [History Confirmed 06/10/21] Carvedilol 3.125 mg [Coreg 3.125 MG] 3.125 mg PO BID 04/25/21 [History Con firmed 06/10/21] Cholecalciferol (Vitamin D3) [Vitamin D3] 1 tab PO DAILY 04/25/21 [History Confirmed 06/10/21] Clopidogrel Bisulfate 75 mg [PLAVIX 75 MG Tablet] 75 mg PO DAILY 04/25/21 [History Confirmed 06/10/21] Digoxin 250 mcg PO DAILY 04/25/21 [History Confirmed 06/10/21] Dulaglutide [Trulicity] 3 mg SQ WEEKLY 04/25/21 [History Confirmed 06/10/21] Empagliflozin [Jardiance] 25 mg PO DAILY 04/25/21 [History Confirmed 06/10/21] Gabapentin 300 mg [Neurontin 300 mg] 300 mg PO TID 04/25/21 [History Confirmed 06/10/21] Glipizide/Metformin HCl [Glipizide-Metformin 5-500 mg] 1 tablet PO TID 04/25/21 [History Confirmed 06/10/21] Mirabegron [Myrbetriq] 25 mg PO DAILY 04/25/21 [History Confirmed 06/10/21] Multivitamin 1 tablet PO DAILY 04/25/21 [History Confirmed 06/10/21] cephALEXin [Cephalexin] 500 mg PO TID 06/10/21 [History Confirmed 06/10/21] Doxycycline Hyclate 100 mg [Vibramycin 100 MG] 100 mg PO BID #20 tab 06/11/21 [Rx] Allergies/Adverse Reactions: Allergies Allergy/AdvReac Type Severity Reaction Status Date / Time No Known Drug Allergies Allergy Verified 04/24/21 15:31 - Past Medical History Past Medical History: Yes Neurological History: No Pertinent History ENT History: Cataracts Cardiac History: Coronary Artery Disease Respiratory History: No Pertinent History Endocrine Medical History: Diabetes Type II Musculoskelatal History: No Pertinent History GI Medical History: No Pertinent History History: No Pertinent History Pyscho-Social History: No Pertinent History Male Reproductive Disorders: Prostate Problems Comment: back surgery (discectomy), 5 stents in heart(2015) - Past Surgical History Past Surgical History: Yes Neuro Surgical History: No Pertinent History Cardiac History: Cardiac Catheterization, Cardiac Stent Respiratory Surgery: No Pertinent History GI Surgical History: Appendectomy Genitourinary Surgical Hx: No Pertinent History Musculskeletal Surgical Hx: Other Male Surgical History: Prostate Surgery Other Surgical History: achilles tendon, back surgery - Social History Smoking Status: Never smoker Exposure to second hand smoke: No Alcohol: None Drug Use: none Physical Exam - Narrative Narrative Physical Exam: Podiatry Physical Exam: Vascular: DP and PT pulses palpable b/l. CFT <5 seconds b/l. Skin temperature warm to cool from the proximal tibial tuberosity to distal toes b/l. Absent pedal hair growth b/l. Varicosities noted to lower legs b/l. No cellulitis, proximal streaking or lymphangitis noted. No lymphadenopathy on palpation of the popliteal or inguinal lymph nodes b/l Neurological: Protective sensation diminished 0/10 on the right and 0/10 on the left as indicated with [place] 5.07 monofilament b/l. Lower extremity temperature sensation diminished b/l. Evidence of intrinsic muscle atrophy. Dermatological: Trophic changes to the skin. Skin is xerotic and scaly in nature. Turgor is rigid. No cicatrix noted. No open lesions noted. Toenails 1-5 b/l are abnormal in length, thickness and are discolored yellow. They are dystr ophic crumbling and incurvated. They are painful on compression. Webspaces are clean, dry and intact b/l.Wound to medial aspect of IPJ plantarly. See measurements below Musculoskeletal: Strength intact for all muscle groups b/lPes planus foot architecture noted with hallux abductovalgus to the left hallux. Abnormal range of motion restricted with dorsiflexion and plantarflexion of the first MPJ as well as dorsiflexor limitation with the knee extended however when the knee is flexed there is an increase in range of motion indicating a gastrocnemius equinus. Negative pain on palpation of the periwound area. Normal gait and mario. Wound Care / Suspicious Lesions: Wound #1 Location Left great toe plantar medial aspect Size -Predebridement 0.2 x 0.5 x 0.3 Appearance -Fibrotic and hyperkeratotic margins S/S of infection - Purulent drainage minimal malodor. Negative for tracking positive for undermining 3 mm at proximal aspect of the wound. 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 No evidence of cortical lysis or osteomyelitis periarticular osteophytes no other soft tissue or osseous abnormalities identified Results - Labs Lab/Micro Results: Lab Results-Last 24 Hours 06/10/21 06/10/21 06/10/21 Range/Units 15:30 15:40 15:40 WBC (4.0-10.5) K/mm3 RBC (4.1-5.6) M/mm3 Hgb (12.5-18.0) gm/dl Hct (42-50) % MCV (78-100) fl MCH (26-32) pg MCHC (32-36) g/dl RDW (11.5-14.0) % Plt Count (150-450) K/mm3 MPV (7.5-11.0) fl Gran % (36.0-66.0) % Eos # (Auto) (0-0.5) Absolute Lymphs (auto) (1.0-4.6) Absolute Monos (auto) (0.0-1.3) Lymphocytes % (24.0-44.0) % Monocytes % (0.0-12.0) % Eosinophils % (0.00-5.0) % Basophils % (0.0-0.4) % Absolute Granulocytes (1.4-6.9) Basophils # (0-0.4) Sodium 136 L (137-145) mmol/L Potassium 4.5 (3.5-5.1) mmol/L Chloride 97 L (98-107) mmol/L Carbon Dioxide 23 (22-30) mmol/L Anion Gap 19.8 H (5-15) MEQ/L BUN 26 H (9-20) mg/dL Creatinine 1.03 (0.66-1.25) mg/dL Estimated GFR > 60.0 ML/MIN Glucose 126 H (74-106) mg/dL POC Glucometer (74 to 106) mg/dL Lactic Acid 2.1 H (0.4-2.0) Calcium 8.9 (8.4-10.2) mg/dL Magnesium 2.1 (1.6-2.3) mg/dL Total Bilirubin 0.90 (0.2-1.3) mg/dL AST 24 (17-59) U/L ALT 15 (0-50) U/L Alkaline Phosphatase 79 (38-126) U/L Troponin I < 0.012 (0.000-0.034) ng/mL NT-Pro-B Natriuret Pep 217 (0-1800) pg/mL Serum Total Protein 6.6 (6.3-8.2) g/dL Albumin 4.1 (3.5-5.0) g/dL Urine Color (YELLOW) Urine Appearance (CLEAR) Urine pH (5-6) Ur Specific Lambert (1.005-1.025) Urine Protein (Negative) Urine Ketones (NEGATIVE) Urine Blood (0-5) Bronson/ul Urine Nitrite (NEGATIVE) Urine Bilirubin (NEGATIVE) Urine Urobilinogen (0-1) mg/dL Ur Leukocyte Esterase (NEGATIVE) Urine WBC (Auto) (0-5) /HPF Urine RBC (Auto) (0-2) /HPF U Epithel Cells (Auto) (FEW) /HPF Urine Bacteria (Auto) (NEGATIVE) /HPF Urine Mucus (Auto) (NEGATIVE) /HPF Urine Culture Reflexed (NO) Urine Glucose (NEGATIVE) mg/dL Influenza Type A Ag (NEGATIVE) Influenza Type B Ag (NEGATIVE) RSV (PCR) (Negative) SARS-CoV-2 (PCR) (NEGATIVE) 06/10/21 06/10/21 06/10/21 Range/Units 15:45 16:56 17:40 WBC 7.4 (4.0-10.5) K/mm3 RBC 4.69 (4.1-5.6) M/mm3 Hgb 14.4 (12.5-18.0) gm/dl Hct 44.8 (42-50) % MCV 95.5 (78-100) fl MCH 30.7 (26-32) pg MCHC 32.1 (32-36) g/dl RDW 15.9 H (11.5-14.0) % Plt Count 141 L (150-450) K/mm3 MPV 9.2 (7.5-11.0) fl Gran % 66.1 H (36.0-66.0) % Eos # (Auto) 0.20 (0-0.5) Absolute Lymphs (auto) 1.38 (1.0-4.6) Absolute Monos (auto) 0.90 (0.0-1.3) Lymphocytes % 18.6 L (24.0-44.0) % Monocytes % 12.1 H (0.0-12.0) % Eosinophils % 2.7 (0.00-5.0) % Basophils % 0.5 (0.0-0.4) % Absolute Granulocytes 4.91 (1.4-6.9) Basophils # 0.04 (0-0.4) Sodium (137-145) mmol/L Potassium (3.5-5.1) mmol/L Chloride (98-107) mmol/L Carbon Dioxide (22-30) mmol/L Anion Gap (5-15) MEQ/L BUN (9-20) mg/dL Creatinine (0.66-1.25) mg/dL Estimated GFR ML/MIN Glucose (74-106) mg/dL POC Glucometer (74 to 106) mg/dL Lactic Acid 1.4 (0.4-2.0) Calcium (8.4-10.2) mg/dL Magnesium (1.6-2.3) mg/dL Total Bilirubin (0.2-1.3) mg/dL AST (17-59) U/L ALT (0-50) U/L Alkaline Phosphatase (38-126) U/L Troponin I (0.000-0.034) ng/mL NT-Pro-B Natriuret Pep (0-1800) pg/mL Serum Total Protein (6.3-8.2) g/dL Albumin (3.5-5.0) g/dL Urine Color YELLOW (YELLOW) Urine Appearance SLIGHTLY CLOUDY (CLEAR) Urine pH 5.0 (5-6) Ur Specific Lambert 1.033 (1.005-1.025) Urine Protein NEGATIVE (Negative) Urine Ketones MODERATE (NEGATIVE) Urine Blood NEGATIVE (0-5) Bronson/ul Urine Nitrite NEGATIVE (NEGATIVE) Urine Bilirubin NEGATIVE (NEGATIVE) Urine Urobilinogen NEGATIVE (0-1) mg/dL Ur Leukocyte Esterase NEGATIVE (NEGATIVE) Urine WBC (Auto) 3-5 (0-5) /HPF Urine RBC (Auto) NONE (0-2) /HPF U Epithel Cells (Auto) RARE (FEW) /HPF Urine Bacteria (Auto) NONE (NEGATIVE) /HPF Urine Mucus (Auto) SLIGHT (NEGATIVE) /HPF Urine Culture Reflexed NO (NO) Urine Glucose >=500 (NEGATIVE) mg/dL Influenza Type A Ag (NEGATIVE) Influenza Type B Ag (NEGATIVE) RSV (PCR) (Negative) SARS-CoV-2 (PCR) (NEGATIVE) 06/10/21 06/10/21 06/10/21 Range/Units 18:37 20:03 21:35 WBC (4.0-10.5) K/mm3 RBC (4.1-5.6) M/mm3 Hgb (12.5-18.0) gm/dl Hct (42-50) % MCV (78-100) fl MCH (26-32) pg MCHC (32-36) g/dl RDW (11.5-14.0) % Plt Count (150-450) K/mm3 MPV (7.5-11.0) fl Gran % (36.0-66.0) % Eos # (Auto) (0-0.5) Absolute Lymphs (auto) (1.0-4.6) Absolute Monos (auto) (0.0-1.3) Lymphocytes % (24.0-44.0) % Monocytes % (0.0-12.0) % Eosinophils % (0.00-5.0) % Basophils % (0.0-0.4) % Absolute Granulocytes (1.4-6.9) Basophils # (0-0.4) Sodium (137-145) mmol/L Potassium (3.5-5.1) mmol/L Chloride (98-107) mmol/L Carbon Dioxide (22-30) mmol/L Anion Gap (5-15) MEQ/L BUN (9-20) mg/dL Creatinine (0.66-1.25) mg/dL Estimated GFR ML/MIN Glucose (74-106) mg/dL POC Glucometer (74 to 106) mg/dL Lactic Acid (0.4-2.0) Calcium (8.4-10.2) mg/dL Magnesium (1.6-2.3) mg/dL Total Bilirubin (0.2-1.3) mg/dL AST (17-59) U/L ALT (0-50) U/L Alkaline Phosphatase (38-126) U/L Troponin I < 0.012 < 0.012 (0.000-0.034) ng/mL NT-Pro-B Natriuret Pep (0-1800) pg/mL Serum Total Protein (6.3-8.2) g/dL Albumin (3.5-5.0) g/dL Urine Color (YELLOW) Urine Appearance (CLEAR) Urine pH (5-6) Ur Specific Lambert (1.005-1.025) Urine Protein (Negative) Urine Ketones (NEGATIVE) Urine Blood (0-5) Bronson/ul Urine Nitrite (NEGATIVE) Urine Bilirubin (NEGATIVE) Urine Urobilinogen (0-1) mg/dL Ur Leukocyte Esterase (NEGATIVE) Urine WBC (Auto) (0-5) /HPF Urine RBC (Auto) (0-2) /HPF U Epithel Cells (Auto) (FEW) /HPF Urine Bacteria (Auto) (NEGATIVE) /HPF Urine Mucus (Auto) (NEGATIVE) /HPF Urine Culture Reflexed (NO) Urine Glucose (NEGATIVE) mg/dL Influenza Type A Ag NEGATIVE (NEGATIVE) Influenza Type B Ag NEGATIVE (NEGATIVE) RSV (PCR) NEGATIVE (Negative) SARS-CoV-2 (PCR) NEGATIVE (NEGATIVE) 06/10/21 06/11/21 06/11/21 Range/Units 22:32 00:30 03:34 WBC (4.0-10.5) K/mm3 RBC (4.1-5.6) M/mm3 Hgb (12.5-18.0) gm/dl Hct (42-50) % MCV (78-100) fl MCH (26-32) pg MCHC (32-36) g/dl RDW (11.5-14.0) % Plt Count (150-450) K/mm3 MPV (7.5-11.0) fl Gran % (36.0-66.0) % Eos # (Auto) (0-0.5) Absolute Lymphs (auto) (1.0-4.6) Absolute Monos (auto) (0.0-1.3) Lymphocytes % (24.0-44.0) % Monocytes % (0.0-12.0) % Eosinophils % (0.00-5.0) % Basophils % (0.0-0.4) % Absolute Granulocytes (1.4-6.9) Basophils # (0-0.4) Sodium (137-145) mmol/L Potassium (3.5-5.1) mmol/L Chloride (98-107) mmol/L Carbon Dioxide (22-30) mmol/L Anion Gap (5-15) MEQ/L BUN (9-20) mg/dL Creatinine (0.66-1.25) mg/dL Estimated GFR ML/MIN Glucose (74-106) mg/dL POC Glucometer 132 H (74 to 106) mg/dL Lactic Acid (0.4-2.0) Calcium (8.4-10.2) mg/dL Magnesium (1.6-2.3) mg/dL Total Bilirubin (0.2-1.3) mg/dL AST (17-59) U/L ALT (0-50) U/L Alkaline Phosphatase (38-126) U/L Troponin I < 0.012 < 0.012 (0.000-0.034) ng/mL NT-Pro-B Natriuret Pep (0-1800) pg/mL Serum Total Protein (6.3-8.2) g/dL Albumin (3.5-5.0) g/dL Urine Color (YELLOW) Urine Appearance (CLEAR) Urine pH (5-6) Ur Specific Lambert (1.005-1.025) Urine Protein (Negative) Urine Ketones (NEGATIVE) Urine Blood (0-5) Bronson/ul Urine Nitrite (NEGATIVE) Urine Bilirubin (NEGATIVE) Urine Urobilinogen (0-1) mg/dL Ur Leukocyte Esterase (NEGATIVE) Urine WBC (Auto) (0-5) /HPF Urine RBC (Auto) (0-2) /HPF U Epithel Cells (Auto) (FEW) /HPF Urine Bacteria (Auto) (NEGATIVE) /HPF Urine Mucus (Auto) (NEGATIVE) /HPF Urine Culture Reflexed (NO) Urine Glucose (NEGATIVE) mg/dL Influenza Type A Ag (NEGATIVE) Influenza Type B Ag (NEGATIVE) RSV (PCR) (Negative) SARS-CoV-2 (PCR) (NEGATIVE) 06/11/21 06/11/21 06/11/21 Range/Units 03:34 03:34 07:21 WBC 7.7 (4.0-10.5) K/mm3 RBC 4.44 (4.1-5.6) M/mm3 Hgb 13.7 (12.5-18.0) gm/dl Hct 42.6 (42-50) % MCV 95.9 (78-100) fl MCH 30.9 (26-32) pg MCHC 32.2 (32-36) g/dl RDW 16.0 H (11.5-14.0) % Plt Count 140 L (150-450) K/mm3 MPV 8.7 (7.5-11.0) fl Gran % 53.3 (36.0-66.0) % Eos # (Auto) 0.38 (0-0.5) Absolute Lymphs (auto) 2.05 (1.0-4.6) Absolute Monos (auto) 1.11 (0.0-1.3) Lymphocytes % 26.8 (24.0-44.0) % Monocytes % 14.5 H (0.0-12.0) % Eosinophils % 5.0 (0.00-5.0) % Basophils % 0.4 (0.0-0.4) % Absolute Granulocytes 4.09 (1.4-6.9) Basophils # 0.03 (0-0.4) Sodium 134 L (137-145) mmol/L Potassium 4.2 (3.5-5.1) mmol/L Chloride 99 (98-107) mmol/L Carbon Dioxide 25 (22-30) mmol/L Anion Gap 14.4 (5-15) MEQ/L BUN 25 H (9-20) mg/dL Creatinine 0.94 (0.66-1.25) mg/dL Estimated GFR > 60.0 ML/MIN Glucose 103 (74-106) mg/dL POC Glucometer 116 H (74 to 106) mg/dL Lactic Acid (0.4-2.0) Calcium 8.3 L (8.4-10.2) mg/dL Magnesium (1.6-2.3) mg/dL Total Bilirubin 0.60 (0.2-1.3) mg/dL AST 25 (17-59) U/L ALT 13 (0-50) U/L Alkaline Phosphatase 72 (38-126) U/L Troponin I (0.000-0.034) ng/mL NT-Pro-B Natriuret Pep (0-1800) pg/mL Serum Total Protein 6.1 L (6.3-8.2) g/dL Albumin 3.6 (3.5-5.0) g/dL Urine Color (YELLOW) Urine Appearance (CLEAR) Urine pH (5-6) Ur Specific Lambert (1.005-1.025) Urine Protein (Negative) Urine Ketones (NEGATIVE) Urine Blood (0-5) Bronson/ul Urine Nitrite (NEGATIVE) Urine Bilirubin (NEGATIVE) Urine Urobilinogen (0-1) mg/dL Ur Leukocyte Esterase (NEGATIVE) Urine WBC (Auto) (0-5) /HPF Urine RBC (Auto) (0-2) /HPF U Epithel Cells (Auto) (FEW) /HPF Urine Bacteria (Auto) (NEGATIVE) /HPF Urine Mucus (Auto) (NEGATIVE) /HPF Urine Culture Reflexed (NO) Urine Glucose (NEGATIVE) mg/dL Influenza Type A Ag (NEGATIVE) Influenza Type B Ag (NEGATIVE) RSV (PCR) (Negative) SARS-CoV-2 (PCR) (NEGATIVE) - Radiology Impressions Radiology Exams & Impressions: Radiology Procedures Category Date Time Status CHEST 1 VIEW (PORTABLE) Stat Exams 06/10/21 15:20 Completed HEAD WITHOUT CONTRAST [CT] Stat Exams 06/10/21 15:20 Completed TOE(S) (MIN 2 VIEWS) Stat Exams 06/10/21 19:03 Completed Assessment/Plan (1) Left leg cellulitis Current Visit: No Status: Acute Assessment & Plan: Patient examination and evaluation. Discussion with patient in regards to options for treatment and patient is willing to proceed with an aggressive debridement as he has been dealing with this issue for the last 2 months with multiple systemic effects. Radiographs reviewed demonstrating no indications of osseous pathology however some spurring at the medial aspect of the base of the distal phalanx which correlates with wound. Patient wishes to proceed with incision and drainage of abscess with lavage and bone debridement as well as bone biopsy. He understands all risks complications and benefits of the procedure. Plenty of time was allowed for questions to be asked to which he had none. At this time a alcohol swab was utilized to cleanse the base of the proximal phalanx of the left hallux toe a 10 cc injection of a one-to-one mixture of 1% lidocaine plain 0.5% bupivacaine plain was injected in a hallux block type fashion. Following this the left lower extremity was prepped and draped in the typical aseptic fashion at bedside. A loop curette was then utilized to debride the soft tissue aggressively revealing a abscess that tunneled 2.5 cm proximal from the original opening of the original wound the distal aspect of this wound probed directly to the bone this was debrided utilizing a curette the skin edges were incised and revealed to have healthy bleeding all fibrotic and necrotic tissue was removed from the surgical wound and flushed with copious amounts of sterile saline at this time a bone biopsy was obtained and passed off the field for pathological assessment. At this time a pressure dressing consisting of Betadine Adaptic 4 x 4 Curlex and Alejandro was applied to the left lower extremity. Patient handled the procedure without complication. Patient did have a wound culture obtained in my office on Monday which grew staph aureus resistant to everything but clindamycin. Patient was on cephalexin empirically however at this time would like to proceed with doxycycline 100 mg twice daily.Once results of bone biopsy have been obtained we will determine if IV antibiotics is appropriate or to continue with p.o. antibiotics at that time Patient is adamant that he has his daughter at home who will be able to change his dressings daily consisting of Betadine Adaptic 4 x 4 Curlex and Alejandro. Patient is allowed Full weightbearing ambulatory status at this time with a surgical shoe. Discharge with [address] [place] for pain control Return for reevaluation Monday in clinic outpatient. We will plan for delayed primary closure on Monday on return to clinic Patient has been advised if there are any additional symptoms including but not limited to nausea vomiting fever chills shortness of breath and or cough patient is to return to the emergency department immediately Okay for DC at this time from my standpoint if okay from medicine team Code(s): L03.116 - CELLULITIS OF LEFT LOWER LIMB (2) Dizziness Current Visit: Yes Status: Acute Code(s): R42 - DIZZINESS AND GIDDINESS (3) Toe infection Current Visit: Yes Status: Acute Code(s): L08.9 - LOCAL INFECTION OF THE SKIN AND SUBCUTANEOUS TISSUE, UNSP (4) Diabetic ulcer of toe Current Visit: Yes Status: Acute Code(s): E11.621 - TYPE 2 DIABETES MELLITUS WITH FOOT ULCER; L97.509 - NON-PRESSURE CHRONIC ULCER OTH PRT UNSP FOOT W UNSP SEVERITY
[2021-06-11] MEDS ORDERED: NON-FORMULARY ITEM (Mirabegron [Myrbetriq] 50 MG Tab.Er.24h) PO SCH (10:00)
[2021-06-11] MEDS ORDERED: NEURONTIN 300 MG PO SCH (10:00)
[2021-06-11] MEDS ORDERED: NON-FORMULARY ITEM (Multivitamin [Multivitamin] 1 EACH Tablet) PO SCH (10:00)
[2021-06-11] MEDS ORDERED: PROTONIX 40 MG IV IV SCH (10:00)
[2021-06-11] MEDS ORDERED: ECOTRIN 81 MG PO SCH (10:00)
[2021-06-11] MEDS ORDERED: DIGOXIN 250 MCG PO SCH (10:00)
[2021-06-11] MEDS ORDERED: PLAVIX 75 MG Tablet PO SCH (10:00)
[2021-06-11] MEDS ORDERED: THERAGRAN MULTIVITAMIN PO SCH (10:00)
[2021-06-11] MEDS ORDERED: Coreg 3.125 MG PO SCH (10:00)
[2021-06-11] MEDS ORDERED: Lanoxin 0.125MG TABLET PO SCH (10:00)
[2021-06-11] MEDS ORDERED: MYRBETRIQ PO SCH (10:00)
[2021-06-11] MEDS ORDERED: PHARMACY DOSING REQUIRED: VANCOMYCIN MC SCH (10:00)
[2021-06-11] MEDS ORDERED: VANCOMYCIN 1.25 GM/250 ML BAG 1.25 GM/250 ML PIGGYBACK IV SCH (10:00)
[2021-06-11 12:25] VITALS: BP 122/58; PULSE 84
[2021-06-11] MEDS ORDERED: ZOCOR 20MG PO SCH (22:00)
[2021-06-11] MEDS ORDERED: NON-FORMULARY ITEM (Atorvastatin Calcium [Atorvastatin Calcium] 20 MG Tablet) PO SCH (22:00)
[2021-06-12 10:55] VITALS: O2SAT 98
== END 2021-06-11 13:28 | disposition home or self-care (01) ==
LOC: ED 14:50 → MED SURG 21:49
PROVIDERS: ADMIT Family Medicine; ATTEND Family Medicine
DX: E11.621 Type 2 diabetes mellitus with foot ulcer (principal); R42 Dizziness and giddiness; L97.529 Non-pressure chronic ulcer of other part of left foot with unspecified severity; L03.116 Cellulitis of left lower limb; L08.9 Local infection of the skin and subcutaneous tissue, unspecified; N18.2 Chronic kidney disease, stage 2 (mild); I25.10 Atherosclerotic heart disease of native coronary artery without angina pectoris; I10 Essential (primary) hypertension; E78.5 Hyperlipidemia, unspecified; R53.83 Other fatigue; Z79.899 Other long term (current) drug therapy; Z20.828 Contact with and (suspected) exposure to other viral communicable diseases
CPT/HCPCS: 0241U; 28005; 36000; 36415; 70450; 71045; 73660; 80053; 81001; 82947; 83605; 83735; 83880; 84484; 85025; 87070; 93005; 93041; 96360; 96365; 96366; 99235; 99285; G0378; 87077; 87186; 88304; A9270-GY; J3370

== ENCOUNTER 2021-12-12 14:13 | Emergency (ER) | payer MEDICARE ==
[2021-12-12] MEDS ORDERED: TYLENOL 325 MG PO ONE (14:58)
[2021-12-12] MEDS ORDERED: TYLENOL 325 MG ONE (15:08)
--- NOTE | 2021-12-12 15:23 | ERPHSYRPT ---
- History of Present Illness Time Seen by Provider: 12/12/21 15:21 Source: patient Exam Limitations: no limitations Patient Subjective Stated Complaint: PT HERE FOR HEADACHE TO TOP OF HEAD THAT STARTED THIS MORNING, AND NOT SLEEPING WELL LAST NIGHT. DENIES ANY INJURY Triage Nursing Assessment: PT ALERT, WALKED IN WITH CANE, RESP EASY, SKIN W/D/P. PULIPS EQUAL AND 2MM Physician History: Patient is 86-year-old male with significant past medical history of coronary artery disease hypertension diabetes was in his usual state of health. Since yesterday evening he started having a headache on the top of his head associated with some dizziness. He was not able to sleep at all last night and today morning his headache got worse and he was also becoming more and more dizzy so he came to the emergency room. Patient denies any fever chills nausea vomiting chest pain or shortness of breath. Patient did not have this type of headache in the past. Timing/Duration: yesterday Quality: pressure Head Pain Location: global Severity of Pain-Max: mild Severity of Pain-Current: moderate Recent Head Trauma: no recent headache/trauma Associated Symptoms: denies symptoms Previous symptoms: no prior history Allergies/Adverse Reactions: No Known Drug Allergies Allergy (Verified 12/12/21 14:52) Home Medications: Aspirin EC 81 mg [Ecotrin 81 mg] 81 mg PO DAILY 04/25/21 [History] Atorvastatin Calcium 20 mg PO HS 04/25/21 [History] Carvedilol 3.125 mg [Coreg 3.125 MG] 3.125 mg PO BID 04/25/21 [History] Cholecalciferol (Vitamin D3) [Vitamin D3] 1 tab PO DAILY 04/25/21 [History] Clopidogrel Bisulfate [PLAVIX Tablet] 75 mg PO DAILY 04/25/21 [History] Digoxin 250 mcg PO DAILY 04/25/21 [History] Dulaglutide [Trulicity] 3 mg SQ WEEKLY 04/25/21 [History] Empagliflozin [Jardiance] 25 mg PO DAILY 04/25/21 [History] Gabapentin [Neurontin ] 300 mg PO TID 04/25/21 [History] Glipizide/Metformin HCl [Glipizide-Metformin 5-500 mg] 1 tablet PO TID 04/25/21 [History] Mirabegron [Myrbetriq] 25 mg PO DAILY 04/25/21 [History] Multivitamin 1 tablet PO DAILY 04/25/21 [History] Hx Tetanus, Diphtheria Vaccination/Date Given: Yes Hx Influenza Vaccination/Date Given: Yes Hx Pneumococcal Vaccination/Date Given: Yes Immunizations Up to Date: Yes Travel Risk - International Travel Have you traveled outside of the country in past 3 weeks: No - Coronavirus Screening Are you exhibiting any of the following symptoms?: No - Vaccine Status Have you recieved a Covid-19 vaccination: Yes [employer]: [employer] - Vaccination Dates Date of 2cond Vaccination (if applicable): 02/2021 - Review of Systems Constitutional: No Fever, No Chills Eyes: No Symptoms Ears, Nose, & Throat: No Symptoms Respiratory: No Cough, No Dyspnea Cardiac: No Chest Pain, No Edema, No Syncope Abdominal/Gastrointestinal: No Abdominal Pain, No Nausea, No Vomiting, No Diarrhea Genitourinary Symptoms: No Dysuria Musculoskeletal: No Back Pain, No Neck Pain Skin: No Rash Neurological: Headache, No Dizziness, No Focal Weakness, No Sensory Changes Psychological: No Symptoms Endocrine: No Symptoms All Other Systems: Reviewed and Negative - Past Medical History Pertinent Past Medical History: Yes Neurological History: No Pertinent History ENT History: Cataracts Cardiac History: Coronary Artery Disease Respiratory History: No Pertinent History Endocrine Medical History: Diabetes Type II Musculoskeletal History: No Pertinent History GI Medical History: No Pertinent History History: No Pertinent History Psycho-Social History: No Pertinent History Male Reproductive Disorders: Prostate Problems Other Medical History: back surgery (discectomy), 5 stents in heart(2014) - Past Surgical History Past Surgical History: Yes Neuro Surgical History: No Pertinent History Cardiac: Cardiac Catheterization, Cardiac Stent Respiratory: No Pertinent History Gastrointestinal: Appendectomy Genitourinary: No Pertinent History Musculoskeletal: Other Male Surgical History: Prostate Surgery Other Surgical History: achilles tendon, back surgery - Social History Smoking Status: Never smoker Exposure to second hand smoke: No Drug Use: none Patient Lives Alone: No - Nursing Vital Signs Nursing Vital Signs: Initial Vital Signs Temperature 97.2 F 12/12/21 14:46 Pulse Rate 83 12/12/21 14:46 Respiratory Rate 18 12/12/21 14:46 Blood Pressure 146/81 12/12/21 14:46 O2 Sat by Pulse Oximetry 94 L 12/12/21 14:46 Pain Scale Pain Intensity 2 - Physical Exam General Appearance: no apparent distress Eye Exam: PERRL/EOMI Ears, Nose, Throat Exam: normal ENT inspection, moist mucous membranes Neck Exam: normal inspection, supple, full range of motion, No meningismus Respiratory Exam: normal breath sounds, lungs clear Cardiovascular Exam: regular rate/rhythm, normal heart sounds Gastrointestinal/Abdominal Exam: soft, No tenderness, No distention Back Exam: normal inspection, normal range of motion Mental Status Exam: alert, oriented x 3, cooperative drop wirer Exam: normal speech, PERRL, No facial droop Coordination/Gait Exam: normal cerebellar function Motor/Sensory Exam: no motor deficit, no sensory deficit Skin Exam: normal color, warm, dry, No rash SpO2: 94 - Course Nursing assessment & vital signs reviewed: Yes - CT Exams Head CT Interpretation: Tele-radiologist Report, No/Intracranial Hemorrhag Ordered Tests: Active Orders 24 hr Category Date Time Status HEAD WITHOUT CONTRAST [CT] Stat Exams 12/12/21 15:15 Taken CBC W DIFF Stat Lab 12/12/21 15:30 Completed CMP Stat Lab 12/12/21 15:30 Completed Medication Summary Discontinued Medications Generic Name Dose Route Start Last Admin Trade Name Martha PRN Reason Stop Dose Admin Acetaminophen 975 mg 12/12/21 14:58 12/12/21 15:09 Acetaminophen 325 Mg Tablet PO 12/12/21 14:59 975 mg STAT ONE Administration Acetaminophen Confirm 12/12/21 15:08 Acetaminophen 325 Mg Tablet Administered 12/12/21 15:09 Dose 975 mg .ROUTE .STK-MED ONE Lab/Rad Data: Laboratory Result Diagrams 12/12/21 15:30 12/12/21 15:30 Laboratory Results 12/12/21 12/12/21 Range/Units 15:30 15:30 WBC 7.6 (4.0-10.5) x10^3/uL RBC 4.50 (4.1-5.6) x10^6/uL Hgb 14.5 (12.5-18.0) g/dL Hct 43.1 (42-50) % MCV 95.8 (78-100) fL MCH 32.2 H (26-32) pg MCHC 33.6 (32-36) g/dL RDW 13.9 (11.5-14.0) % Plt Count 162 (150-450) x10^3/uL MPV 9.0 (7.5-11.0) fL Gran % 55.3 (36.0-66.0) % Immature Gran % (Auto) 0.3 (0.00-0.4) % Nucleat RBC Rel Count 0.0 (0.00-0.1) % Eos # (Auto) 0.30 (0-0.5) x10^3/uL Immature Gran # (Auto) 0.02 (0.00-0.03) x10^3u/L Absolute Lymphs (auto) 2.44 (1.0-4.6) x10^3/uL Absolute Monos (auto) 0.58 (0.0-1.3) x10^3/uL Absolute Nucleated RBC 0.00 (0.00-0.01) x10^3u/L Lymphocytes % 32.1 (24.0-44.0) % Monocytes % 7.6 (0.0-12.0) % Eosinophils % 3.9 (0.00-5.0) % Basophils % 0.8 (0.0-0.4) % Absolute Granulocytes 4.21 (1.4-6.9) x10^3/uL Basophils # 0.06 (0-0.4) x10^3/uL Sodium 136 L (137-145) mmol/L Potassium 4.2 (3.5-5.1) mmol/L Chloride 101 (98-107) mmol/L Carbon Dioxide 29 (22-30) mmol/L Anion Gap 9.8 (5-15) MEQ/L BUN 18 (9-20) mg/dL Creatinine 0.81 (0.66-1.25) mg/dL Estimated GFR > 60.0 ML/MIN Glucose 157 H (74-106) mg/dL Calcium 9.0 (8.4-10.2) mg/dL Total Bilirubin 0.80 (0.2-1.3) mg/dL AST 26 (17-59) U/L ALT 16 (0-50) U/L Alkaline Phosphatase 77 (38-126) U/L Serum Total Protein 6.6 (6.3-8.2) g/dL Albumin 3.8 (3.5-5.0) g/dL - Progress Progress: improved Counseled pt/family regarding: lab results, diagnosis, need for follow-up, rad results - Departure Departure Disposition: Home Clinical Impression: Headache Qualifiers: Headache type: unspecified Headache chronicity pattern: acute headache Intrac tability: not intractable Qualified Code(s): R51.9 - Headache, unspecified Condition: Stable Critical Care Time: No Referrals: ROWENA VIEYRA MD [Primary Care Provider] - Follow Up with PCP/3 days Instructions: Headache, Adult (DC) Additional Instructions: Discharge/Care Plan BURTON REYES was seen on 12/12/21 in the Emergency Room. The patient was counseled regarding Diagnosis,Lab results, Imaging studies, need for follow up and when to return to the Emergency Room. Prescriptions given: Discharge Note I have spoken with the patient and/or caregivers. I have explained the patient's condition, diagnosis and treatment plan based on the information available to me at this time. I have answered the patient's and/or caregiver's questions and addressed any concerns. The patient and/or caregivers have as good understanding of the patient's diagnosis, condition and treatment plan as can be expected at this point. The vital signs have been stable. The patient's condition is stable and appropriate for discharge from the emergency department. The patient will pursue further outpatient evaluation with the primary care physician or other designated or consulting physician as outlined in the disch arge instructions. The patient and/or caregivers are agreeable to this plan of care and follow-up instructions have been explained in detail. The patient and/or caregivers have received these instruction. The patient/and or caregivers are aware that any significant change in condition or worsening of symptoms should prompt an immediate return to this or the closest emergency department or call 911. BURTON REYES was seen on 12/12/21 n the Emergency Room. At that time you were treated for an emergent condition, during your visit Laboratory, Radiology and/or other procedures may have been ordered. It is very important that you follow-up with your Primary Care Physician ROWENA VIEYRA within the next 24- 48 hours to review your Emergency Room visit and the final results of testing that was ordered. Some test results such as Urine Cultures, Blood Cultures, and other cultures if ordered will not be finalized for 24-48 hours. If you do not have a Primary Care Provider please call the medical records depa rtment at [phone] to obtain a copy of your results or you may sign into our patient portal to obtain these results by visiting us @ [email or web address] and completing the following steps: 1. Click on the Patient Portal link 2. Click the Patient Self Enrollment Link to complete the enrollment form and entering your 3. Once the enrollment form is completed you will receive an email with a temporary ID and password at the email address you provided. 4. Next choose a user name and password. Your user name must be at least 4 characters long and your password must be at least 4 characters long. 5. Choose a security question from the list and provide your answer to the question. If you already have signed into the Health Portal you may access your Health Care Information 26/12 by the following steps: 1. Login to our website @ [email or web address] 2. Enter your original user name and password. FAQS [facility] Health Portal is an online tool that contains your Lab Results, Radiology Reports, Visit History, Discharge Instructions and Health Summary Lab and Radiology Results will not be available for 72 hours on the portal. The Portal is a secure site, passwords are encryted and URLs are re-written so they cannot be copied and pasted. You and authorized family members are the only ones who can access your Portal. Also there is a timeout feature that protects your information if you leave the Portal page open. If you have technical difficulty please use the Contact Us link on the page this will allow you to submit any questions you have regarding the Portal or you may contact the Medical Record Department at [phone] ext [phone].
[2021-12-12 15:42] LABS: Absolute Neutrophil Ct (ANC) 4.21 x10^3/uL (1.4-6.9); Basophil (Absolute #) 0.06 x10^3/uL (0-0.4); Eosinophil % 3.9 % (0.00-5.0); Hematocrit 43.1 % (42-50); Hemoglobin 14.5 g/dL (12.5-18.0); Lymphocyte (Absolute #) 2.44 x10^3/uL (1.0-4.6); Lymphocytes % 32.1 % (24.0-44.0); Mean Cell Volume 95.8 fL (78-100); Mean Corpuscular Hemoglobin 32.2 pg (26-32); Mean Corpuscular Hgb Concent. 33.6 g/dL (32-36); Monocyte (Absolute #) 0.58 x10^3/uL (0.0-1.3); Monocytes % 7.6 % (0.0-12.0); Neutrophil % 55.3 % (36.0-66.0); Platelet Count 162 x10^3/uL (150-450); Red Cell Distribution Width 13.9 % (11.5-14.0); White Blood Count 7.6 x10^3/uL (4.0-10.5)
[2021-12-12 15:51] LABS: ALBUMIN 3.8 g/dL (3.5-5.0); ALKALINE PHOSPHATASE 77 U/L (38-126); ANION GAP 9.8 MEQ/L (5-15); BLOOD UREA NITROGEN 18 mg/dL (9-20); CHLORIDE 101 mmol/L (98-107); Carbon Dioxide 29 mmol/L (22-30); Creatinine 1 0.81 mg/dL (0.66-1.25); EST GLOMERULAR FILTRATION RATE > 60.0 ML/MIN; Glucose 157 mg/dL (74-106); Potassium 4.2 mmol/L (3.5-5.1); SGOT/AST 26 U/L (17-59); SGPT/ALT 16 U/L (0-50); SODIUM 136 mmol/L (137-145); Total Protein 6.6 g/dL (6.3-8.2)
[2021-12-12 16:55] VITALS: BP 126/74; PULSE 88; O2SAT 99
--- NOTE | 2021-12-12 19:45 | XRAY ---
Indication: Frontal headache. Multiple contiguous axial images obtained through the head without contrast. Comparison: June 10, 2021. Again age-appropriate global atrophy, mild periventricular degenerative micro-ischemia, and remote lacunar infarct right basal ganglia. No acute intracranial hemorrhage, abnormal extra-axial fluid collection, or mass effect. Fourth ventricle is midline without hydrocephalus. Bony calvarium intact. Visualized paranasal sinuses and mastoid air cells are clear. Impression: Continued nonacute senile brain with remote lacunar infarct right basal ganglia. Comment: Preliminary interpretation made by [facility]. No critical discrepancy.
== END 2021-12-12 16:55 | disposition home or self-care (01) ==
LOC: ED 14:13
DX: R51.9 Headache, unspecified (principal); R42 Dizziness and giddiness; I10 Essential (primary) hypertension; E11.9 Type 2 diabetes mellitus without complications; Z79.02 Long term (current) use of antithrombotics/antiplatelets; Z79.84 Long term (current) use of oral hypoglycemic drugs; Z79.899 Other long term (current) drug therapy
CPT/HCPCS: 36415; 70450; 80053; 85025; 99283; A9270-GY

== ENCOUNTER 2022-02-11 09:36 | Observation (INO) | payer MEDICARE ==
--- NOTE | 2022-02-11 10:21 | ERPHSYRPT ---
- History of Present Illness Source: patient Exam Limitations: other (Very poor historian) Patient Subjective Stated Complaint: C/O headache and body aches that started last night. Patient states that he received his COVID vaccine booster and flu vaccine yesterday and patient believes that he is having side effects from that. Triage Nursing Assessment: Patient brought back to ED in W/C. Patient transferred self from chair to bed without difficulties or assistance from staff. He is hard of hearing; wearing hearing aids. He is alert and oriented. No SOB. Denies any falls or N/V. ROMO WNL. Wearing glasses; normal for this patient. Denies changes in vision. Physician History: 86 yo wm w UZLETA/myalgias after getting CV19/Flu immunization yesterday. He denies N/V/D/cough/coryza/dysuria/hematuria/fever/ST/chest pain/abdominal pain. Timing/Duration: yesterday Severity: mild Modifying Factors: Improves With: nothing Associated Symptoms: headaches, loss of appetite, malaise, No nausea, No vomiting, No abdominal pain, No shortness of breath, No heartburn, No diaphoresis, No cough, No chills, No chest pain, No fever, No rash, No syncope, No seizure, No weakness Allergies/Adverse Reactions: No Known Drug Allergies Allergy (Verified 02/11/22 09:43) Home Medications: Aspirin EC 81 mg [Ecotrin 81 mg] 81 mg PO DAILY 04/25/21 [History] Atorvastatin Calcium 20 mg PO HS 04/25/21 [History] Carvedilol 3.125 mg [Coreg 3.125 MG] 3.125 mg PO BID 04/25/21 [History] Cholecalciferol (Vitamin D3) [Vitamin D3] 1 tab PO DAILY 04/25/21 [History] Clopidogrel Bisulfate [PLAVIX Tablet] 75 mg PO DAILY 04/25/21 [History] Digoxin 250 mcg PO DAILY 04/25/21 [History] Dulaglutide [Trulicity] 3 mg SQ WEEKLY 04/25/21 [History] Empagliflozin [Jardiance] 25 mg PO DAILY 04/25/21 [History] Gabapentin [Neurontin ] 300 mg PO TID 04/25/21 [History] Glipizide/Metformin HCl [Glipizide-Metformin 5-500 mg] 1 tablet PO TID 04/25/21 [History] Mirabegron [Myrbetriq] 25 mg PO DAILY 04/25/21 [History] Multivitamin 1 tablet PO DAILY 04/25/21 [History] Hx Tetanus, Diphtheria Vaccination/Date Given: Yes Hx Influenza Vaccination/Date Given: Yes (02/10/22) Hx Pneumococcal Vaccination/Date Given: Yes Immunizations Up to Date: Yes Travel Risk - International Travel Have you traveled outside of the country in past 3 weeks: No - Coronavirus Screening Are you exhibiting any of the following symptoms?: Yes Symptoms: Headaches/Body Aches/Fatigue Close contact with a COVID-19 positive Pt in past 14-21 Days: No - Vaccine Status Have you recieved a Covid-19 vaccination: Yes Coater Smoking Pipe: [place] - Vaccination Dates Date of 2cond Vaccination (if applicable): 2020 - Review of Systems Constitutional: No Symptoms, Malaise Eyes: No Symptoms Ears, Nose, & Throat: No Symptoms Respiratory: No Symptoms Cardiac: No Symptoms Abdominal/Gastrointestinal: No Symptoms, Appetite Changes Genitourinary Symptoms: No Symptoms Musculoskeletal: No Symptoms, Myalgias Skin: No Symptoms Neurological: No Symptoms Psychological: No Symptoms Endocrine: No Symptoms Hematologic/Lymphatic: No Symptoms Immunological/Allergic: No Symptoms - Past Medical History Pertinent Past Medical History: Yes Neurological History: No Pertinent History ENT History: Cataracts Cardiac History: Coronary Artery Disease, Hypertension Respiratory History: No Pertinent History Endocrine Medical History: Diabetes Type II Musculoskeletal History: No Pertinent History GI Medical History: No Pertinent History History: No Pertinent History Psycho-Social History: No Pertinent History Male Reproductive Disorders: Prostate Problems Other Medical History: back surgery (discectomy), 5 stents in heart(2014) - Past Surgical History Past Surgical History: Yes Neuro Surgical History: No Pertinent History Cardiac: Cardiac Catheterization, Cardiac Stent Respiratory: No Pertinent History Gastrointestinal: Appendectomy Genitourinary: No Pertinent History Musculoskeletal: Other Male Surgical History: Prostate Surgery Other Surgical History: achilles tendon, back surgery - Social History Smoking Status: Never smoker Exposure to second hand smoke: No Drug Use: none Patient Lives Alone: No - Nursing Vital Signs Nursing Vital Signs: Initial Vital Signs Temperature 97.8 F 02/11/22 09:44 Pulse Rate 89 02/11/22 09:44 Respiratory Rate 16 09/09/22 09:44 Blood Pressure 119/87 09/09/22 09:44 O2 Sat by Pulse Oximetry 93 L 02/11/22 09:44 Pain Scale Pain Intensity 5 Borderline sats - Physical Exam General Appearance: no apparent distress Eye Exam: PERRL/EOMI, eyes nml inspection Ears, Nose, Throat Exam: normal ENT inspection, TMs normal, pharynx normal, moist mucous membranes Neck Exam: normal inspection, non-tender, supple, full range of motion, No meningismus, No mass, No Brudzinski, No Kernig's, No carotid bruit Respiratory Exam: normal breath sounds, lungs clear, airway intact, No respiratory distress Cardiovascular Exam: regular rate/rhythm, normal heart sounds, normal peripheral pulses, capillary refill <2 sec, No murmur Gastrointestinal/Abdomen Exam: soft, normal bowel sounds, No tenderness Back Exam: normal inspection, normal range of motion, No CVA tenderness, No vertebral tenderness Extremity Exam: normal inspection, normal range of motion Neurologic Exam: alert, oriented x 3, cooperative, internal controls manager II-XII nml as tested, normal mood/affect, nml cerebellar function, nml station & gait, sensation nml, No motor deficits, No sensory deficit Skin Exam: normal color, warm, dry, No rash Lymphatic Exam: No adenopathy SpO2 Interpretation: borderline oxygenation SpO2: 93 - Course Nursing assessment & vital signs reviewed: Yes EKG Interpreted by Me: RATE (NSR/Rate 83/Normal Qt-QTc/Old inferior [place]/Poor R wave progression/no acute ST segment changes) - Radiology Exams Chest X-ray Interpretation: Discussed w/ radiologist (CXR Nothing acute) Ordered Tests: Active Orders 24 hr Category Date Time Status EKG-ER Only STAT Care 02/11/22 10:15 Completed House Regular Diet Diet 02/11/22 Dinner Active CHEST 1 VIEW (PORTABLE) Stat Exams 02/11/22 10:15 Completed BLOOD CULTURE Stat Lab 02/11/22 13:15 Received CBC W DIFF Stat Lab 02/11/22 10:41 Completed CMP Stat Lab 02/11/22 10:41 Completed CULTURE,URINE Stat Lab 02/11/22 10:41 Received Lactic Acid Stat Lab 02/11/22 12:06 Completed TROPONIN Q4H Lab 02/11/22 10:46 Completed TROPONIN Q4H Lab 02/11/22 14:15 Ordered TROPONIN Q4H Lab 02/11/22 18:15 Ordered UA W/RFX CULTURE Stat Lab 02/11/22 10:41 Completed Transfer Order Routine Transfer 02/11/22 Completed Medication Summary Generic Name Dose Route Start Last Admin Trade Name Martha PRN Reason Stop Dose Admin Sodium Chloride 1,000 mls @ 100 mls/hr 02/11/22 13:15 Sodium Chloride 0.9% 1000 Ml IV 03/13/22 13:14 .Q10H MANAV Ceftriaxone Sodium/Dextrose 1 g in 50 mls @ 100 mls/hr 02/12/22 10:00 Rocephin 1 Gm-D5w 50 Ml Bag IV 02/15/22 09:59 Q24H10 MANAV Ondansetron HCl 4 mg 02/11/22 13:08 Ondansetron Hcl 4 Mg/2 Ml Vial IV 03/13/22 13:07 Q6H PRN PRN NAUSEA/VOMITING Pantoprazole Sodium 40 mg 02/11/22 14:00 Pantoprazole 40 Mg Vial IV 03/13/22 13:59 Q24H10 MANAV Discontinued Medications Generic Name Dose Route Start Last Admin Trade Name Martha PRN Reason Stop Dose Admin Sodium Chloride 1,000 mls @ 999 mls/hr 02/11/22 12:05 02/11/22 13:16 Sodium Chloride 0.9% 1000 Ml IV 02/11/22 13:05 Infused .Q1H1M STA Infusion Sodium Chloride Confirm 02/11/22 12:13 Sodium Chloride 0.9% 1000 Ml Administered 02/11/22 12:14 Dose 1,000 mls @ ud .ROUTE .STK-MED ONE Ceftriaxone Sodium/Dextrose 1 g in 50 mls @ 100 mls/hr 02/11/22 12:33 02/11/22 13:13 Rocephin 1 Gm-D5w 50 Ml Bag IV 02/11/22 13:02 Infused STAT STA Infusion Ceftriaxone Sodium/Dextrose Confirm 02/11/22 12:36 Rocephin 1 Gm-D5w 50 Ml Bag Administered 02/11/22 12:37 Dose 1 g in 50 mls @ ud IV .STK-MED ONE Lab/Rad Data: Laboratory Result Diagrams 02/11/22 10:41 02/11/22 10:41 Laboratory Results 02/11/22 02/11/22 02/11/22 Range/Units 12:06 10:46 10:41 WBC (4.0-10.5) x10^3/uL RBC (4.1-5.6) x10^6/uL Hgb (12.5-18.0) g/dL Hct (42-50) % MCV (78-100) fL MCH (26-32) pg MCHC (32-36) g/dL RDW (11.5-14.0) % Plt Count (150-450) x10^3/uL MPV (7.5-11.0) fL Gran % (36.0-66.0) % Immature Gran % (Auto) (0.00-0.4) % Nucleat RBC Rel Count (0.00-0.1) % Eos # (Auto) (0-0.5) x10^3/uL Immature Gran # (Auto) (0.00-0.03) x10^3u/L Absolute Lymphs (auto) (1.0-4.6) x10^3/uL Absolute Monos (auto) (0.0-1.3) x10^3/uL Absolute Nucleated RBC (0.00-0.01) x10^3u/L Lymphocytes % (24.0-44.0) % Monocytes % (0.0-12.0) % Eosinophils % (0.00-5.0) % Basophils % (0.0-0.4) % Absolute Granulocytes (1.4-6.9) x10^3/uL Basophils # (0-0.4) x10^3/uL Sodium (137-145) mmol/L Potassium (3.5-5.1) mmol/L Chloride (98-107) mmol/L Carbon Dioxide (22-30) mmol/L Anion Gap (5-15) MEQ/L BUN (9-20) mg/dL Creatinine (0.66-1.25) mg/dL Estimated GFR ML/MIN Glucose (74-106) mg/dL Lactic Acid 1.9 (0.4-2.0) Calcium (8.4-10.2) mg/dL Total Bilirubin (0.2-1.3) mg/dL AST (17-59) U/L ALT (0-50) U/L Alkaline Phosphatase (38-126) U/L Troponin I < 0.012 (0.000-0.034) ng/mL Serum Total Protein (6.3-8.2) g/dL Albumin (3.5-5.0) g/dL Urinalys Dipstick Clnc Urine Color (YELLOW) Urine Appearance (CLEAR) Urine pH (5-6) Ur Specific [place] (1.005-1.025) POC Urine Protein Conf (Negative) Urine Ketones (NEGATIVE) Urine Nitrite (NEGATIVE) Urine Bilirubin (NEGATIVE) Urine Urobilinogen (0-1) mg/dL Urine Leukocytes (NEGATIVE) Urine WBC (Auto) (0-5) /HPF Urine RBC (Auto) (0-2) /HPF U Epithel Cells (Auto) (FEW) /HPF Urine Bacteria (Auto) (NEGATIVE) /HPF Urine RBC (0-5) Bronson/ul Urine Mucus (Auto) (NEGATIVE) /HPF Ur Culture Indicated? Urine Glucose (NEGATIVE) mg/dL Influenza Type A Ag NEGATIVE (NEGATIVE) Influenza Type B Ag NEGATIVE (NEGATIVE) RSV (PCR) NEGATIVE (Negative) SARS-CoV-2 (PCR) NEGATIVE (NEGATIVE) 02/11/22 02/11/22 02/11/22 Range/Units 10:41 10:41 10:41 WBC 6.7 (4.0-10.5) x10^3/uL RBC 4.81 (4.1-5.6) x10^6/uL Hgb 15.8 (12.5-18.0) g/dL Hct 46.8 (42-50) % MCV 97.3 (78-100) fL MCH 32.8 H (26-32) pg MCHC 33.8 (32-36) g/dL RDW 13.4 (11.5-14.0) % Plt Count 146 L (150-450) x10^3/uL MPV 8.9 (7.5-11.0) fL Gran % 62.4 (36.0-66.0) % Immature Gran % (Auto) 0.3 (0.00-0.4) % Nucleat RBC Rel Count 0.0 (0.00-0.1) % Eos # (Auto) 0.10 (0-0.5) x10^3/uL Immature Gran # (Auto) 0.02 (0.00-0.03) x10^3u/L Absolute Lymphs (auto) 1.53 (1.0-4.6) x10^3/uL Absolute Monos (auto) 0.78 (0.0-1.3) x10^3/uL Absolute Nucleated RBC 0.00 (0.00-0.01) x10^3u/L Lymphocytes % 23.0 L (24.0-44.0) % Monocytes % 11.7 (0.0-12.0) % Eosinophils % 1.5 (0.00-5.0) % Basophils % 1.1 (0.0-0.4) % Absolute Granulocytes 4.15 (1.4-6.9) x10^3/uL Basophils # 0.07 (0-0.4) x10^3/uL Sodium 135 L (137-145) mmol/L Potassium 4.2 (3.5-5.1) mmol/L Chloride 98 (98-107) mmol/L Carbon Dioxide 21 L (22-30) mmol/L Anion Gap 20.2 H (5-15) MEQ/L BUN 25 H (9-20) mg/dL Creatinine 0.89 (0.66-1.25) mg/dL Estimated GFR > 60.0 ML/MIN Glucose 171 H (74-106) mg/dL Lactic Acid (0.4-2.0) Calcium 8.4 (8.4-10.2) mg/dL Total Bilirubin 0.90 (0.2-1.3) mg/dL AST 25 (17-59) U/L ALT 20 (0-50) U/L Alkaline Phosphatase 72 (38-126) U/L Troponin I (0.000-0.034) ng/mL Serum Total Protein 6.7 (6.3-8.2) g/dL Albumin 4.1 (3.5-5.0) g/dL Urinalys Dipstick Clnc MAIN LAB Urine Color YELLOW (YELLOW) Urine Appearance CLEAR (CLEAR) Urine pH 5.0 (5-6) Ur Specific [place] >=1.030 (1.005-1.025) POC Urine Protein Conf NEGATIVE (Negative) Urine Ketones LARGE-80 (NEGATIVE) Urine Nitrite NEGATIVE (NEGATIVE) Urine Bilirubin SMALL (NEGATIVE) Urine Urobilinogen 0.2 (0-1) mg/dL Urine Leukocytes SMALL (NEGATIVE) Urine WBC (Auto) >100 (0-5) /HPF Urine RBC (Auto) 26-50 (0-2) /HPF U Epithel Cells (Auto) RARE (FEW) /HPF Urine Bacteria (Auto) FEW (NEGATIVE) /HPF Urine RBC SMALL (0-5) Bronson/ul Urine Mucus (Auto) SLIGHT (NEGATIVE) /HPF Ur Culture Indicated? YES Urine Glucose 500 (NEGATIVE) mg/dL Influenza Type A Ag (NEGATIVE) Influenza Type B Ag (NEGATIVE) RSV (PCR) (Negative) SARS-CoV-2 (PCR) (NEGATIVE) - Progress Progress: improved Progress Note: 02/11/22 13:[address] Sherman Blood cultures x2 1L NS bolus 1gm IV Rocephin Discussed with : Machelle Will see patient in: hospital (observation) Counseled pt/family regarding: lab results, diagnosis, need for follow-up, rad results - Departure Departure Disposition: Observation Clinical Impression: UTI (urinary tract infection) Condition: Stable Critical Care Time: No
--- NOTE | 2022-02-11 10:39 | XRAY ---
Indication: Lethargy. Comparison: June 10, 2021 Portable chest again demonstrates minimal bibasilar subsegmental atelectasis/scarring and a few bilateral calcified granulomas. Remaining heart and lungs unremarkable. Bony thorax intact again with osteopenia, degenerative changes, and old right rib fractures. Impression: Continued nonacute chest with chronic features.
[2022-02-11 10:49] LABS: Absolute Neutrophil Ct (ANC) 4.15 x10^3/uL (1.4-6.9); Basophil (Absolute #) 0.07 x10^3/uL (0-0.4); Eosinophil % 1.5 % (0.00-5.0); Hematocrit 46.8 % (42-50); Hemoglobin 15.8 g/dL (12.5-18.0); Lymphocyte (Absolute #) 1.53 x10^3/uL (1.0-4.6); Mean Cell Volume 97.3 fL (78-100); Mean Corpuscular Hemoglobin 32.8 pg (26-32); Mean Corpuscular Hgb Concent. 33.8 g/dL (32-36); Mean Platelet Volume 8.9 fL (7.5-11.0); Monocyte (Absolute #) 0.78 x10^3/uL (0.0-1.3); Monocytes % 11.7 % (0.0-12.0); Neutrophil % 62.4 % (36.0-66.0); Platelet Count 146 x10^3/uL (150-450); Red Blood Count 4.81 x10^6/uL (4.1-5.6); Red Cell Distribution Width 13.4 % (11.5-14.0); White Blood Count 6.7 x10^3/uL (4.0-10.5)
[2022-02-11 10:56] LABS: ALBUMIN 4.1 g/dL (3.5-5.0); ALKALINE PHOSPHATASE 72 U/L (38-126); ANION GAP 20.2 MEQ/L (5-15); BLOOD UREA NITROGEN 25 mg/dL (9-20); CHLORIDE 98 mmol/L (98-107); Calcium 8.4 mg/dL (8.4-10.2); Carbon Dioxide 21 mmol/L (22-30); Creatinine 1 0.89 mg/dL (0.66-1.25); EST GLOMERULAR FILTRATION RATE > 60.0 ML/MIN; Glucose 171 mg/dL (74-106); Potassium 4.2 mmol/L (3.5-5.1); SGOT/AST 25 U/L (17-59); SGPT/ALT 20 U/L (0-50); SODIUM 135 mmol/L (137-145); Total Protein 6.7 g/dL (6.3-8.2)
[2022-02-11 10:58] LABS: Appearance CLEAR (CLEAR); Bilirubin SMALL (NEGATIVE); Glucose 500 mg/dL (NEGATIVE); Ketones LARGE-80 (NEGATIVE)
[2022-02-11 10:59] LABS: Dipstick done @ ? MAIN LAB; Nitrite NEGATIVE (NEGATIVE); Protein,Urine Dip NEGATIVE (Negative); RBC SMALL Ery/ul (0-5); Specific Gravity >=1.030 (1.005-1.025); Urobilinogen 0.2 mg/dL (0-1)
[2022-02-11 11:00] LABS: Bacteria FEW /HPF (NEGATIVE); Epithelial Cells RARE /HPF (FEW); Mucus SLIGHT /HPF (NEGATIVE); RBC 26-50 /HPF (0-2); WBC >100 /HPF (0-5)
[2022-02-11 11:21] LABS: INFLUENZA A NEGATIVE (NEGATIVE); INFLUENZA B NEGATIVE (NEGATIVE); RESPIRATORY SYNCTIAL VIRUS NEGATIVE (Negative); SARS-CoV-2 Xpert Express NEGATIVE (NEGATIVE)
[2022-02-11 11:46] LABS: Urine Cultured Indicated? YES
[2022-02-11] MEDS ORDERED: Sodium Chloride 0.9% 1000 ML 1,000 ML IV STA (12:05)
[2022-02-11] MEDS ORDERED: Sodium Chloride 0.9% 1000 ML 1,000 ML ONE (12:13)
[2022-02-11] MEDS ORDERED: ROCEPHIN 1 Gm-D5w 50 ml Bag** 1 G/50 ML IVPB IV STA (12:33)
[2022-02-11] MEDS ORDERED: ROCEPHIN 1 Gm-D5w 50 ml Bag** 1 G/50 ML IVPB IV ONE (12:36)
[2022-02-11] MEDS ORDERED: Zofran 4 MG/2 ML VIAL IV PRN (13:08)
[2022-02-11] MEDS: Sodium Chloride 0.9% 1000 ML 1,000 ML IV SCH ×2 (14:22→23:48)
[2022-02-11] MEDS: PROTONIX 40 MG IV IV SCH (14:22)
[2022-02-11] MEDS: MYRBETRIQ PO SCH (17:23)
[2022-02-11] MEDS: ECOTRIN 81 MG PO SCH (17:23)
[2022-02-11] MEDS: Lanoxin 0.125MG TABLET PO SCH (17:23)
[2022-02-11] MEDS: PLAVIX Tablet PO SCH (17:24)
[2022-02-11] MEDS: NEURONTIN PO SCH ×2 (17:24→21:16)
[2022-02-11] MEDS: Coreg 3.125 MG PO SCH (21:15)
[2022-02-11] MEDS: ZOCOR 20MG PO SCH (21:16)
[2022-02-11] MEDS: Lantus Insulin SQ SCH (21:16)
[2022-02-11] MEDS ORDERED: NON-FORMULARY ITEM (Atorvastatin Calcium [Atorvastatin Calcium] 20 MG Tablet) PO SCH (22:00)
[2022-02-12] MEDS: MYRBETRIQ PO SCH (08:19)
[2022-02-12] MEDS: NEURONTIN PO SCH ×3 (08:19→21:13)
[2022-02-12] MEDS: Lantus Insulin SQ SCH ×2 (08:19→21:14)
[2022-02-12] MEDS: ECOTRIN 81 MG PO SCH (08:19)
[2022-02-12] MEDS: PLAVIX Tablet PO SCH (08:19)
[2022-02-12] MEDS: PROTONIX 40 MG IV IV SCH (08:19)
[2022-02-12] MEDS: Coreg 3.125 MG PO SCH ×2 (08:20→21:13)
[2022-02-12] MEDS: Lanoxin 0.125MG TABLET PO SCH (08:26)
[2022-02-12] MEDS ORDERED: DIGOXIN 250 MCG PO SCH (10:00)
[2022-02-12] MEDS ORDERED: ROCEPHIN 1 Gm-D5w 50 ml Bag** 1 G/50 ML IVPB IV SCH (10:00)
[2022-02-12] MEDS ORDERED: NON-FORMULARY ITEM (Mirabegron [Myrbetriq] 50 MG Tab.Er.24h) PO SCH (10:00)
[2022-02-12] MEDS: Sodium Chloride 0.9% 1000 ML 1,000 ML IV SCH ×2 (10:57→21:13)
[2022-02-12 12:23] LABS: Absolute Neutrophil Ct (ANC) 3.22 x10^3/uL (1.4-6.9); Basophil (Absolute #) 0.05 x10^3/uL (0-0.4); Eosinophil % 4.4 % (0.00-5.0); Eosinophil (Absolute #) 0.25 x10^3/uL (0-0.5); Hematocrit 40.6 % (42-50); Hemoglobin 13.4 g/dL (12.5-18.0); Lymphocyte (Absolute #) 1.58 x10^3/uL (1.0-4.6); Lymphocytes % 27.6 % (24.0-44.0); Mean Cell Volume 98.1 fL (78-100); Mean Corpuscular Hemoglobin 32.4 pg (26-32); Mean Platelet Volume 8.8 fL (7.5-11.0); Monocytes % 10.5 % (0.0-12.0); Neutrophil % 56.1 % (36.0-66.0); Platelet Count 127 x10^3/uL (150-450); Red Blood Count 4.14 x10^6/uL (4.1-5.6); Red Cell Distribution Width 13.2 % (11.5-14.0); White Blood Count 5.7 x10^3/uL (4.0-10.5)
[2022-02-12 12:34] LABS: ANION GAP 8.6 MEQ/L (5-15); BLOOD UREA NITROGEN 21 mg/dL (9-20); CHLORIDE 104 mmol/L (98-107); Calcium 7.6 mg/dL (8.4-10.2); Carbon Dioxide 27 mmol/L (22-30); Creatinine 1 0.82 mg/dL (0.66-1.25); EST GLOMERULAR FILTRATION RATE > 60.0 ML/MIN; Glucose 179 mg/dL (74-106); Potassium 4.1 mmol/L (3.5-5.1); SODIUM 135 mmol/L (137-145)
--- NOTE | 2022-02-12 17:49 | PCM.HP ---
History of Present Illness - Chief Complaint Chief Complaint: UTI History of Present Illness: is a 86 year old male pt of Dr. Tan with PMHx CAD (stents x 5 in 2015), HTN, DM II, BPH, and hx discectomy who was admitted through ER with UTI and weakness. He had a COVID booster and flu shot 2d ago, then yesterday had the ZULETA and weakness and came to ER. UA with >100 WBC and 26-50 RBC, neg nitrites (UCx pending0. WBC nl, LA 1.9. Troponin neg x 2. A1c was 8.26 on 01/26/22. eGFR >60. Pt is feeling better today. Denies dysuria or gross hematuria. No fever. - Review of Systems Musculoskeletal: Myalgias Neurological: Headache All Other Systems: Reviewed and Negative Medications & Allergies Home Medications: Home Medication List Aspirin EC 81 mg [Ecotrin 81 mg] 81 mg PO DAILY 04/25/21 [History Confirmed 02/11/22] Atorvastatin Calcium 20 mg PO HS 04/25/21 [History Confirmed 02/11/22] Carvedilol 3.125 mg [Coreg 3.125 MG] 3.125 mg PO BID 04/25/21 [History Confirmed 02/11/22] Cholecalciferol (Vitamin D3) [Vitamin D3] 1 tab PO DAILY 04/25/21 [History Confirmed 02/11/22] Clopidogrel Bisulfate [PLAVIX Tablet] 75 mg PO DAILY 04/25/21 [History Confirmed 02/11/22] Digoxin 250 mcg PO DAILY 04/25/21 [History Confirmed 02/11/22] Dulaglutide [Trulicity] 3 mg SQ WEEKLY 04/25/21 [History Confirmed 02/11/22] Empagliflozin [Jardiance] 5 mg PO DAILY 04/25/21 [History Confirmed 02/11/22] Gabapentin [Neurontin ] 300 mg PO TID 04/25/21 [History Confirmed 02/11/22] Glipizide/Metformin HCl [Glipizide-Metformin 5-500 mg] 1 tablet PO TID 04/25/21 [History Confirmed 02/11/22] Mirabegron [Myrbetriq] 25 mg PO DAILY 04/25/21 [History Confirmed 02/11/22] Multivitamin 1 tablet PO DAILY 04/25/21 [History Confirmed 02/11/22] Glipizide/Metformin HCl [Glipizide-Metformin 5-500 mg] 1 tab PO BID 02/11/22 [History Confirmed 02/11/22] Insulin Glargine [Lantus Insulin] 20 units PO BID 02/11/22 [History Confirmed 02/11/22] Allergies/Adverse Reactions: Allergies Allergy/AdvReac Type Severity Reaction Status Date / Time No Known Drug Allergies Allergy Verified 02/11/22 09:43 - Past Medical History Past Medical History: Yes Neurological History: No Pertinent History ENT History: Cataracts Cardiac History: Coronary Artery Disease, Hypertension Respiratory History: No Pertinent History Endocrine Medical History: Diabetes Type II Musculoskelatal History: No Pertinent History GI Medical History: No Pertinent History History: No Pertinent History Pyscho-Social History: No Pertinent History Male Reproductive Disorders: Prostate Problems Comment: back surgery (discectomy), 5 stents in heart(2014) - Past Surgical History Past Surgical History: Yes Neuro Surgical History: No Pertinent History Cardiac History: Cardiac Catheterization, Cardiac Stent Respiratory Surgery: No Pertinent History GI Surgical History: Appendectomy Genitourinary Surgical Hx: No Pertinent History Musculskeletal Surgical Hx: Other Male Surgical History: Prostate Surgery Other Surgical History: achilles tendon, back surgery - Social History Smoking Status: Never smoker Exposure to second hand smoke: No Alcohol: None Drug Use: none - Physical Exam Vital Signs: Vital Signs - 24 hr Temp Pulse Resp BP BP Pulse Ox 02/12/22 16:00 98.7 F 70 16 105/59 95 02/12/22 12:00 97.8 F 97 H 17 91/61 98 02/12/22 08:26 77 152/75 02/12/22 07:29 98.7 F 74 18 152/75 98 02/12/22 04:00 97.7 F 76 18 127/66 94 L 02/11/22 23:38 98.0 F 74 20 150/64 95 02/11/22 19:55 97.5 F 84 18 115/68 95 General Appearance: no apparent distress, alert Neurologic Exam: oriented x 3, cooperative, normal mood/affect Eye Exam: eyes nml inspection Ears, Nose, Throat Exam: moist mucous membranes Neck Exam: normal inspection, non-tender, No lymphadenopathy, No thyromegaly Respiratory Exam: normal breath sounds, lungs clear, No crackles/rales, No rhonchi, No wheezing Cardiovascular Exam: regular rate/rhythm, normal heart sounds, No murmur Gastrointestinal/Abdomen Exam: soft, normal bowel sounds, No tenderness, No distention, No mass, No guarding, No rebound Back Exam: other ((wearing shirt)), No CVA tenderness Extremity Exam: normal inspection, No pedal edema, No swelling Skin Exam: normal color, warm, dry, No rash Results - Labs Lab/Micro Results: Lab Results-Last 24 Hours 02/11/22 02/12/22 02/12/22 Range/Units 18:03 05:38 07:20 WBC (4.0-10.5) x10^3/uL RBC (4.1-5.6) x10^6/uL Hgb (12.5-18.0) g/dL Hct (42-50) % MCV (78-100) fL MCH (26-32) pg MCHC (32-36) g/dL RDW (11.5-14.0) % Plt Count (150-450) x10^3/uL MPV (7.5-11.0) fL Gran % (36.0-66.0) % Immature Gran % (Auto) (0.00-0.4) % Nucleat RBC Rel Count (0.00-0.1) % Eos # (Auto) (0-0.5) x10^3/uL Immature Gran # (Auto) (0.00-0.03) x10^3u/L Absolute Lymphs (auto) (1.0-4.6) x10^3/uL Absolute Monos (auto) (0.0-1.3) x10^3/uL Absolute Nucleated RBC (0.00-0.01) x10^3u/L Lymphocytes % (24.0-44.0) % Monocytes % (0.0-12.0) % Eosinophils % (0.00-5.0) % Basophils % (0.0-0.4) % Absolute Granulocytes (1.4-6.9) x10^3/uL Basophils # (0-0.4) x10^3/uL Sodium (137-145) mmol/L Potassium (3.5-5.1) mmol/L Chloride (98-107) mmol/L Carbon Dioxide (22-30) mmol/L Anion Gap (5-15) MEQ/L BUN (9-20) mg/dL Creatinine (0.66-1.25) mg/dL Estimated GFR ML/MIN Glucose (74-106) mg/dL POC Glucometer 105 99 (74 to 106) mg/dL Calcium (8.4-10.2) mg/dL Troponin I < 0.012 (0.000-0.034) ng/mL 02/12/22 02/12/22 Range/Units 12:20 12:20 WBC 5.7 (4.0-10.5) x10^3/uL RBC 4.14 (4.1-5.6) x10^6/uL Hgb 13.4 (12.5-18.0) g/dL Hct 40.6 L (42-50) % MCV 98.1 (78-100) fL MCH 32.4 H (26-32) pg MCHC 33.0 (32-36) g/dL RDW 13.2 (11.5-14.0) % Plt Count 127 L (150-450) x10^3/uL MPV 8.8 (7.5-11.0) fL Gran % 56.1 (36.0-66.0) % Immature Gran % (Auto) 0.5 H (0.00-0.4) % Nucleat RBC Rel Count 0.0 (0.00-0.1) % Eos # (Auto) 0.25 (0-0.5) x10^3/uL Immature Gran # (Auto) 0.03 (0.00-0.03) x10^3u/L Absolute Lymphs (auto) 1.58 (1.0-4.6) x10^3/uL Absolute Monos (auto) 0.60 (0.0-1.3) x10^3/uL Absolute Nucleated RBC 0.00 (0.00-0.01) x10^3u/L Lymphocytes % 27.6 (24.0-44.0) % Monocytes % 10.5 (0.0-12.0) % Eosinophils % 4.4 (0.00-5.0) % Basophils % 0.9 (0.0-0.4) % Absolute Granulocytes 3.22 (1.4-6.9) x10^3/uL Basophils # 0.05 (0-0.4) x10^3/uL Sodium 135 L (137-145) mmol/L Potassium 4.1 (3.5-5.1) mmol/L Chloride 104 (98-107) mmol/L Carbon Dioxide 27 (22-30) mmol/L Anion Gap 8.6 (5-15) MEQ/L BUN 21 H (9-20) mg/dL Creatinine 0.82 (0.66-1.25) mg/dL Estimated GFR > 60.0 ML/MIN Glucose 179 H (74-106) mg/dL POC Glucometer (74 to 106) mg/dL Calcium 7.6 L (8.4-10.2) mg/dL Troponin I (0.000-0.034) ng/mL Microbiology 02/11/22 10:41 Urine Culture - Preliminary Urine, Void GRAM POSITIVE ID AND SENSITIVITY PENDING Accuchecks Date 02/12/22 Time 07:20 - Radiology Impressions Radiology Exams & Impressions: Radiology Procedures Category Date Time Status CHEST 1 VIEW (PORTABLE) Stat Exams 02/11/22 10:15 Completed Assessment/Plan (1) Urinary tract infection Current Visit: Yes Status: Acute Qualifiers: Urinary tract infection type: acute cystitis Hematuria presence: with hematuria Qualified Code(s): N30.01 - Acute cystitis with hematuria Assessment & Plan: On rocephin day #2. Would like him to stay until UCx results are in. Code(s): N39.0 - URINARY TRACT INFECTION, SITE NOT SPECIFIED (2) Coronary artery disease Current Visit: No Status: Chronic Qualifiers: Coronary Disease-Associated Artery/Lesion type: bypass graft [place] vs. transplanted heart: [place] heart Associated angina: without angina Qualified Code(s): I25.810 - Atherosclerosis of coronary artery bypass graft(s) without angina pectoris Assessment & Plan: On plavix. 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 Code(s): Z29.9 - ENCOUNTER FOR PROPHYLACTIC MEASURES, UNSPECIFIED
[2022-02-12] MEDS: ZOCOR 20MG PO SCH (21:13)
[2022-02-13 06:01] LABS: Absolute Neutrophil Ct (ANC) 2.73 x10^3/uL (1.4-6.9); Basophil (Absolute #) 0.08 x10^3/uL (0-0.4); Eosinophil % 6.6 % (0.00-5.0); Hematocrit 40.1 % (42-50); Hemoglobin 13.4 g/dL (12.5-18.0); Lymphocyte (Absolute #) 2.03 x10^3/uL (1.0-4.6); Lymphocytes % 33.7 % (24.0-44.0); Mean Cell Volume 97.1 fL (78-100); Mean Corpuscular Hemoglobin 32.4 pg (26-32); Mean Corpuscular Hgb Concent. 33.4 g/dL (32-36); Mean Platelet Volume 9.3 fL (7.5-11.0); Monocyte (Absolute #) 0.76 x10^3/uL (0.0-1.3); Monocytes % 12.6 % (0.0-12.0); Neutrophil % 45.5 % (36.0-66.0); Platelet Count 140 x10^3/uL (150-450); Red Blood Count 4.13 x10^6/uL (4.1-5.6); Red Cell Distribution Width 13.3 % (11.5-14.0)
[2022-02-13 06:29] LABS: ANION GAP 8.6 MEQ/L (5-15); BLOOD UREA NITROGEN 21 mg/dL (9-20); CHLORIDE 106 mmol/L (98-107); Calcium 8.2 mg/dL (8.4-10.2); Carbon Dioxide 29 mmol/L (22-30); Creatinine 1 0.87 mg/dL (0.66-1.25); EST GLOMERULAR FILTRATION RATE > 60.0 ML/MIN; Glucose 133 mg/dL (74-106); Potassium 3.9 mmol/L (3.5-5.1); SODIUM 139 mmol/L (137-145)
[2022-02-13] MEDS: MYRBETRIQ PO SCH (09:57)
[2022-02-13] MEDS: Coreg 3.125 MG PO SCH (09:57)
[2022-02-13] MEDS: NEURONTIN PO SCH (09:57)
[2022-02-13] MEDS: Lanoxin 0.125MG TABLET PO SCH (09:57)
[2022-02-13] MEDS: PROTONIX 40 MG IV IV SCH (09:57)
[2022-02-13] MEDS: Lantus Insulin SQ SCH (09:57)
[2022-02-13] MEDS: ECOTRIN 81 MG PO SCH (09:57)
[2022-02-13] MEDS: PLAVIX Tablet PO SCH (09:57)
[2022-02-13] MEDS ORDERED: Levofloxacin 500MG/100ML D5W 500 MG/100 ML BAG IV SCH (10:00)
[2022-02-13] MEDS ORDERED: PHARMACY DOSING REQUIRED: VANCOMYCIN IV STA (10:34)
--- NOTE | 2022-02-13 10:40 | PCM.DS ---
Discharge Summary Date of Admission: 02/11/22 13:29 Admitting Physician: ROWENA VIEYRA Primary Care Provider: ROWENA VIEYRA Allergies Allergies No Known Drug Allergies Allergy (Verified 02/11/22 09:43) Hospital Summary - Hospital Course Hospital Course: is a 86 year old male pt of Dr. Vieyra' with PMHx CAD (stents x 5 in 2015), HTN, DM II, BPH, and hx discectomy who was admitted through ER with UTI and weakness. He had a COVID booster and flu shot 2d prior to admission, then 1 day [employer] had the ZULETA and weakness and came to ER. UA with >100 WBC and 26-50 RBC, neg nitrites. WBC nl, LA 1.9. Troponin neg x 2. A1c was 8.26 on 01/26/22. eGFR >60. UCx grew Strep agalactiae, >100,000 CFUs, susceptible to levaquin, linezolid, and vancomycin. Pt has completed 2d of rocephin. WIll discharge to home on po linezolid after 1 dose of vancomycin here. Discussed sending him on levaquin, but he actually has a hx of Achilles tendon surgery. Pt is feeling well today, would like to go home. - Vitals & Intake/Output Vital Signs: Vital Signs Temperature 98 F 02/13/22 07:08 Pulse Rate 75 02/13/22 07:08 Respiratory Rate 16 02/13/22 07:08 Blood Pressure 144/69 02/13/22 07:08 O2 Sat by Pulse Oximetry 94 L 02/13/22 07:08 Intake & Output: Intake & Output 02/10/22 02/11/22 02/12/22 02/13/22 11:59 11:59 11:59 11:59 Intake Total 2229 3827 Balance 2229 3827 Weight 82.6 kg 83.3 kg - Lab Result Diagrams: 02/13/22 04:40 02/13/22 04:40 Lab Results-Last 24 Hrs: Lab Results-Last 24 Hours 02/12/22 02/12/22 02/13/22 Range/Units 12:20 12:20 04:40 WBC 5.7 6.0 (4.0-10.5) x10^3/uL RBC 4.14 4.13 (4.1-5.6) x10^6/uL Hgb 13.4 13.4 (12.5-18.0) g/dL Hct 40.6 L 40.1 L (42-50) % MCV 98.1 97.1 (78-100) fL MCH 32.4 H 32.4 H (26-32) pg MCHC 33.0 33.4 (32-36) g/dL RDW 13.2 13.3 (11.5-14.0) % Plt Count 127 L 140 L (150-450) x10^3/uL MPV 8.8 9.3 (7.5-11.0) fL Gran % 56.1 45.5 (36.0-66.0) % Immature Gran % (Auto) 0.5 H 0.3 (0.00-0.4) % Nucleat RBC Rel Count 0.0 0.0 (0.00-0.1) % Eos # (Auto) 0.25 0.40 (0-0.5) x10^3/uL Immature Gran # (Auto) 0.03 0.02 (0.00-0.03) x10^3u/L Absolute Lymphs (auto) 1.58 2.03 (1.0-4.6) x10^3/uL Absolute Monos (auto) 0.60 0.76 (0.0-1.3) x10^3/uL Absolute Nucleated RBC 0.00 0.00 (0.00-0.01) x10^3u/L Lymphocytes % 27.6 33.7 (24.0-44.0) % Monocytes % 10.5 12.6 H (0.0-12.0) % Eosinophils % 4.4 6.6 H (0.00-5.0) % Basophils % 0.9 1.3 (0.0-0.4) % Absolute Granulocytes 3.22 2.73 (1.4-6.9) x10^3/uL Basophils # 0.05 0.08 (0-0.4) x10^3/uL Sodium 135 L (137-145) mmol/L Potassium 4.1 (3.5-5.1) mmol/L Chloride 104 (98-107) mmol/L Carbon Dioxide 27 (22-30) mmol/L Anion Gap 8.6 (5-15) MEQ/L BUN 21 H (9-20) mg/dL Creatinine 0.82 (0.66-1.25) mg/dL Estimated GFR > 60.0 ML/MIN Glucose 179 H (74-106) mg/dL POC Glucometer (74 to 106) mg/dL Calcium 7.6 L (8.4-10.2) mg/dL 02/13/22 02/13/22 02/13/22 Range/Units 04:40 05:31 07:03 WBC (4.0-10.5) x10^3/uL RBC (4.1-5.6) x10^6/uL Hgb (12.5-18.0) g/dL Hct (42-50) % MCV (78-100) fL MCH (26-32) pg MCHC (32-36) g/dL RDW (11.5-14.0) % Plt Count (150-450) x10^3/uL MPV (7.5-11.0) fL Gran % (36.0-66.0) % Immature Gran % (Auto) (0.00-0.4) % Nucleat RBC Rel Count (0.00-0.1) % Eos # (Auto) (0-0.5) x10^3/uL Immature Gran # (Auto) (0.00-0.03) x10^3u/L Absolute Lymphs (auto) (1.0-4.6) x10^3/uL Absolute Monos (auto) (0.0-1.3) x10^3/uL Absolute Nucleated RBC (0.00-0.01) x10^3u/L Lymphocytes % (24.0-44.0) % Monocytes % (0.0-12.0) % Eosinophils % (0.00-5.0) % Basophils % (0.0-0.4) % Absolute Granulocytes (1.4-6.9) x10^3/uL Basophils # (0-0.4) x10^3/uL Sodium 139 (137-145) mmol/L Potassium 3.9 (3.5-5.1) mmol/L Chloride 106 (98-107) mmol/L Carbon Dioxide 29 (22-30) mmol/L Anion Gap 8.6 (5-15) MEQ/L BUN 21 H (9-20) mg/dL Creatinine 0.87 (0.66-1.25) mg/dL Estimated GFR > 60.0 ML/MIN Glucose 133 H (74-106) mg/dL POC Glucometer 126 H 128 H (74 to 106) mg/dL Calcium 8.2 L (8.4-10.2) mg/dL Micro Results-Entire Visit: Microbiology 02/11/22 13:20 Blood Culture - Preliminary Blood NO GROWTH TO DATE 02/11/22 13:15 Blood Culture - Preliminary Blood NO GROWTH TO DATE 02/11/22 10:41 Urine Culture - Final Urine, Void Streptococcus Agalactiae Accuchecks Date 02/13/22 Time 07:03 - Radiology Exams Ordered Rad Exams-Entire Visit: Radiology Procedures Category Date Time Status CHEST 1 VIEW (PORTABLE) Stat Exams 02/11/22 10:15 Completed Discharge Exam General Appearance: no apparent distress, alert Neurologic Exam: oriented x 3, cooperative Eye Exam: eyes nml inspection Ears, Nose, Throat Exam: moist mucous membranes Neck Exam: normal inspection Respiratory Exam: normal breath sounds, lungs clear, No crackles/rales, No rhonchi, No wheezing Cardiovascular Exam: regular rate/rhythm, normal heart sounds, No murmur Gastrointestinal/Abdomen Exam: soft, normal bowel sounds, No tenderness, No distention, No mass, No guarding, No rebound Extremity Exam: normal inspection, No pedal edema, No swelling Skin Exam: normal color, warm, dry, No rash Final Diagnosis/Problem List - Final Discharge Diagnosis/Problem (1) Urinary tract infection Current Visit: Yes Status: Acute Assessment & Plan: Strep agalactiae - home on linezolid (avoiding levaquin due to previous Achilles tendon surgery). Code(s): N39.0 - URINARY TRACT INFECTION, SITE NOT SPECIFIED (2) Coronary artery disease Current Visit: No Status: Chronic Code(s): I25.10 - ATHSCL HEART DISEASE OF [place] CORONARY ARTERY W/O ANG PCTRS (3) Diabetes mellitus Current Visit: No Status: Chronic Code(s): E11.9 - TYPE 2 DIABETES MELLITUS WITHOUT COMPLICATIONS (4) Headache Current Visit: No Status: Resolved Code(s): R51.9 - HEADACHE, UNSPECIFIED (5) Myalgia Current Visit: Yes Status: Resolved Code(s): M79.10 - MYALGIA, UNSPECIFIED SITE (6) DVT prophylaxis Current Visit: Yes Status: Acute Assessment & Plan: Was on lovenox here. Code(s): Z29.9 - ENCOUNTER FOR PROPHYLACTIC MEASURES, UNSPECIFIED - Discharge Disposition: Home, Self-Care Condition: Good Prescriptions: New Lactobacillus Acidophilus [Acidophilus TABLET] 1 tab PO BID #28 tablet Linezolid 600 mg PO BID #13 tablet Continue Atorvastatin Calcium 20 mg PO HS Aspirin EC 81 mg [Ecotrin 81 mg] 81 mg PO DAILY Cholecalciferol (Vitamin D3) [Vitamin D3] 1 tab PO DAILY Carvedilol 3.125 mg [Coreg 3.125 MG] 3.125 mg PO BID Digoxin 250 mcg PO DAILY Clopidogrel Bisulfate [PLAVIX Tablet] 75 mg PO DAILY Empagliflozin [Jardiance] 5 mg PO DAILY Dulaglutide [Trulicity] 3 mg SQ WEEKLY Glipizide/Metformin HCl [Glipizide-Metformin 5-500 mg] 1 tablet PO TID Gabapentin [Neurontin ] 300 mg PO TID Mirabegron [Myrbetriq] 25 mg PO DAILY Multivitamin 1 tablet PO DAILY Glipizide/Metformin HCl [Glipizide-Metformin 5-500 mg] 1 tab PO BID Insulin Glargine [Lantus Insulin] 20 units PO BID Follow up with: ROWENA VIEYRA MD [Primary Care Provider] -
[2022-02-13] MEDS ORDERED: VANCOMYCIN 1.25 GM/250 ML BAG 1.25 GM/250 ML PIGGYBACK IV SCH (11:00)
[2022-02-13 12:42] VITALS: BP 121/67; PULSE 79; O2SAT 95
== END 2022-02-13 15:00 | disposition home or self-care (01) ==
LOC: ED 09:36 → MED SURG 13:29
PROVIDERS: ADMIT Family Medicine; ATTEND Family Medicine
DX: N39.0 Urinary tract infection, site not specified (principal); I25.10 Atherosclerotic heart disease of native coronary artery without angina pectoris; E11.9 Type 2 diabetes mellitus without complications; R51.9 Headache, unspecified; M79.10 Myalgia, unspecified site; I10 Essential (primary) hypertension; N40.0 Benign prostatic hyperplasia without lower urinary tract symptoms; Z29.9 Encounter for prophylactic measures, unspecified; Z79.899 Other long term (current) drug therapy; Z20.828 Contact with and (suspected) exposure to other viral communicable diseases
CPT/HCPCS: 0241U; 36415; 71045; 80048; 80053; 81015; 82947; 83605; 84484; 85025; 87040; 87077; 87086; 87186; 93005; 96360; 96365; 99285; G0378; J0696; J1956; A9270-GY; J3370

== ENCOUNTER 2022-03-18 11:08 | Emergency (ER) | payer MEDICARE ==
[2022-03-18 11:38] VITALS: O2SAT 97
[2022-03-18 11:55] LABS: Absolute Neutrophil Ct (ANC) 4.42 x10^3/uL (1.4-6.9); Basophil (Absolute #) 0.09 x10^3/uL (0-0.4); Eosinophil (Absolute #) 0.56 x10^3/uL (0-0.5); Hematocrit 42.3 % (42-50); Lymphocyte (Absolute #) 2.32 x10^3/uL (1.0-4.6); Lymphocytes % 28.9 % (24.0-44.0); Mean Cell Volume 98.1 fL (78-100); Mean Corpuscular Hemoglobin 32.5 pg (26-32); Mean Corpuscular Hgb Concent. 33.1 g/dL (32-36); Mean Platelet Volume 8.9 fL (7.5-11.0); Monocytes % 7.5 % (0.0-12.0); Neutrophil % 55.1 % (36.0-66.0); Platelet Count 178 x10^3/uL (150-450); Red Blood Count 4.31 x10^6/uL (4.1-5.6)
[2022-03-18 12:12] LABS: INR 0.91 (0.8-3.0); PROTIME 9.7 SECONDS (9.4-12.5); PTT 24.1 SECONDS (25.1-36.5)
[2022-03-18 12:19] LABS: ALBUMIN 3.8 g/dL (3.5-5.0); ALKALINE PHOSPHATASE 108 U/L (38-126); ANION GAP 11.4 MEQ/L (5-15); BLOOD UREA NITROGEN 22 mg/dL (9-20); CHLORIDE 101 mmol/L (98-107); Calcium 9.2 mg/dL (8.4-10.2); Carbon Dioxide 28 mmol/L (22-30); Creatinine 1 0.68 mg/dL (0.66-1.25); EST GLOMERULAR FILTRATION RATE > 60.0 ML/MIN; Glucose 172 mg/dL (74-106); NT PRO BNP 57.7 pg/mL (0-1800); Potassium 4.4 mmol/L (3.5-5.1); SGOT/AST 23 U/L (17-59); SGPT/ALT 20 U/L (0-50); SODIUM 136 mmol/L (137-145); Total Protein 6.5 g/dL (6.3-8.2)
--- NOTE | 2022-03-18 12:32 | XRAY ---
Indication: Lethargy, loss of balance, and altered sensation. Multiple contiguous axial images obtained through the head without contrast. Comparison: December 12, 2021 Again age-appropriate global atrophy, mild periventricular degenerative micro-ischemia, and remote lacunar infarct right basal ganglia. No acute intracranial hemorrhage, abnormal extra-axial fluid collection, or mass effect. Fourth ventricle is midline without hydrocephalus. Bony calvarium intact. Visualized paranasal sinuses and mastoid air cells are clear. Impression: Continued nonacute senile brain with remote lacunar infarct right basal ganglia.
--- NOTE | 2022-03-18 12:32 | XRAY ---
Indication: Lethargy. Comparison: February 11, 2022 Portable chest demonstrates stable minimal left base subsegmental atelectasis/scarring and a few bilateral calcified granulomas. Remaining heart and lungs unremarkable. Bony thorax intact again with osteopenia, degenerative changes, and old right rib fractures. Impression: Continued nonacute chest with chronic features.
--- NOTE | 2022-03-18 13:23 | ERPHSYRPT ---
- History of Present Illness Source: patient Exam Limitations: other (Poor historian) Patient Subjective Stated Complaint: C/O being off balance this morning. Denies pain or dizziness. Patient states that "I just feel strange in my head." Patient can't describe the feeling he is talking about, he just keeps saying, "it's just different." No recent falls. States he becomes off balance and weak when standing up. Triage Nursing Assessment: Patient brought into the ED by wheelchair. He was able to transfer self from chair to bed with stand-by assist with no difficulties. Patient does usually walk with a cane. He is alert and oriented but very hard of hearing with noted hearing aids in both ears. No SOB. Skin tone normal, warm, dry, loose. Physician History: 86 yo wm complains of being off balance since waking up at 6:30 this morning. He denies focal weakness, head trauma, head ache,fever, chest pain,dyspnea,abdominal pain, N/V/D, melena/hematochezia, dysuria, and hematuria. He was recently admitted for a UTI. Timing/Duration: other (6:30AM today) Character of Deficits: none (Just off balance) Deficits: off balance Baseline/Normal Cognition: alert oriented x 3 Current Cognition: alert oriented x 3 Baseline Gait: uses cane Associated Symptoms: trouble walking, No confusion, No fatigue, No fever, No chills, No loss of consciousness, No nausea, No vomiting, No weakness, No insomnia, No muscle spasms, No numbness/tingling in legs/feet, No paresthesia, No ringing in ears, No seizures, No slurred speech, No vision changes, No chest pain, No headache Allergies/Adverse Reactions: No Known Drug Allergies Allergy (Verified 03/18/22 11:19) Home Medications: Aspirin EC 81 mg [Ecotrin 81 mg] 81 mg PO DAILY 04/25/21 [History] Atorvastatin Calcium 20 mg PO HS 04/25/21 [History] Carvedilol 3.125 mg [Coreg 3.125 MG] 3.125 mg PO BID 04/25/21 [History] Cholecalciferol (Vitamin D3) [Vitamin D3] 1 tab PO DAILY 04/25/21 [History] Clopidogrel Bisulfate [PLAVIX Tablet] 75 mg PO DAILY 04/25/21 [History] Digoxin 250 mcg PO DAILY 04/25/21 [History] Dulaglutide [Trulicity] 3 mg SQ WEEKLY 04/25/21 [History] Empagliflozin [Jardiance] 5 mg PO DAILY 04/25/21 [History] Gabapentin [Neurontin ] 300 mg PO TID 04/25/21 [History] Glipizide/Metformin HCl [Glipizide-Metformin 5-500 mg] 1 tablet PO TID 04/25/21 [History] Mirabegron [Myrbetriq] 25 mg PO DAILY 04/25/21 [History] Multivitamin 1 tablet PO DAILY 04/25/21 [History] Insulin Glargine [Lantus Insulin] 25 units PO BID 02/11/22 [History] Hx Tetanus, Diphtheria Vaccination/Date Given: Yes Hx Influenza Vaccination/Date Given: Yes (02/10/22) Hx Pneumococcal Vaccination/Date Given: Yes (Maybe) Immunizations Up to Date: Yes Travel Risk - International Travel Have you traveled outside of the country in past 3 weeks: No - Coronavirus Screening Are you exhibiting any of the following symptoms?: No Close contact with a COVID-19 positive Pt in past 14-21 Days: No - Vaccine Status Have you recieved a Covid-19 vaccination: Yes 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: [employer] - Vaccination Dates Date of 2cond Vaccination (if applicable): 01/06/21 - Review of Systems Constitutional: No Symptoms Eyes: No Symptoms Ears, Nose, & Throat: No Symptoms Respiratory: No Symptoms Cardiac: No Symptoms Abdominal/Gastrointestinal: No Symptoms Genitourinary Symptoms: No Symptoms Musculoskeletal: No Symptoms Skin: No Symptoms Neurological: No Dizziness, No Focal Weakness, No Gait Changes, No Headache, No Irritability, No Lethargy, No Paralysis, No Parasthesia, No Seizure, No Sensory Changes, No Speech Changes, No Tics, No Tremors, No Vertigo Psychological: No Symptoms Endocrine: No Symptoms Hematologic/Lymphatic: No Symptoms Immunological/Allergic: No Symptoms - Past Medical History Pertinent Past Medical History: Yes Neurological History: No Pertinent History ENT History: Cataracts Cardiac History: Coronary Artery Disease, Hypertension Respiratory History: No Pertinent History Endocrine Medical History: Diabetes Type II Musculoskeletal History: No Pertinent History GI Medical History: No Pertinent History History: No Pertinent History Psycho-Social History: No Pertinent History Male Reproductive Disorders: Prostate Problems Other Medical History: back surgery (discectomy), 5 stents in heart(2015) - Past Surgical History Past Surgical History: Yes Neuro Surgical History: No Pertinent History Cardiac: Cardiac Catheterization, Cardiac Stent Respiratory: No Pertinent History Gastrointestinal: Appendectomy Genitourinary: No Pertinent History Musculoskeletal: Other Male Surgical History: Prostate Surgery Other Surgical History: achilles tendon, back surgery - Social History Smoking Status: Never smoker Exposure to second hand smoke: No Drug Use: none Patient Lives Alone: No - Nursing Vital Signs Nursing Vital Signs: Initial Vital Signs Temperature 96.9 F 03/18/22 11:25 Pulse Rate 83 03/18/22 11:25 Respiratory Rate 18 03/18/22 11:25 Blood Pressure 150/90 03/18/22 11:25 O2 Sat by Pulse Oximetry 97 03/18/22 11:25 Pain Scale Pain Intensity 0 Hypertensive - [place] Coma Scale Best Eye Response ([place]): (4) open spontaneously Best Verbal Response ([place]): (5) oriented Best Motor Response ([place]): (6) obeys commands [place] Total: 15 - Physical Exam General Appearance: no apparent distress Eye Exam: bilateral eye: normal inspection, PERRL, EOMI Ears, Nose, Throat Exam: normal ENT inspection, pharynx normal, moist mucous membranes Neck Exam: normal inspection, non-tender, supple, full range of motion, No me ningismus, No mass, No Brudzinski, No Kernig's, No carotid bruit Respiratory: normal breath sounds, lungs clear, airway intact, No respiratory distress Cardiovascular: regular rate/rhythm, normal heart sounds, normal peripheral pulses, capillary refill <2 sec, No murmur Gastrointestinal: soft, normal bowel sounds, No tenderness Back Exam: normal inspection, normal range of motion, No CVA tenderness, No vertebral tenderness Extremity Exam: normal inspection, normal range of motion Peripheral Pulses: carotid (R): 2+, carotid (L): 2+ Mental Status: alert, oriented x 3, 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 Exam: normal speech, PERRL, hearing deficit (R) (Chronic), hearing deficit (L) (Chronic), tongue midline, No abnormal eye position, No abnormal gag reflex, No abnormal pupil position, No abnormal speech, No facial asymmetry, No facial droop, No facial paresthesias, No facial weakness, No gaze palsy Coordination/Gait: normal finger to nose, normal gait, normal cerebellar function, negative Romberg's sign Motor/Sensory: no motor deficit, no sensory deficit, no pronator drift, negative Babinski's sign DTR: bicep (R): 2+, bicep (L): 2+ Skin Exam: normal color, warm, dry, No rash SpO2 Interpretation: normal SpO2: 97 O2 Delivery: Room Air - Course Nursing assessment & vital signs reviewed: Yes EKG Interpreted by Me: RATE (NSR/Rate 81/Normal QT-QTc/Old inferior IA/Poor R Wave progression-old anterior IA/No acute ST changes) - Radiology Exams Chest X-ray Interpretation: Discussed w/ radiologist (CXR NAD per RTad) - CT Exams Head CT Interpretation: Discussed w/radiologist (Nothing acute/Remote R lacunar infarct) Other CT Interpretation: Discussed w/radiologist (CTA of head neck/Tiny nonoccluding venous thrombi superior sagital sinus/Minimal B carotid artery Dz) Ordered Tests: Active Orders 24 hr Category Date Time Status EKG-ER Only STAT Care 03/18/22 11:34 Active IV Insertion STAT Care 03/18/22 12:07 Active CHEST 1 VIEW (PORTABLE) Stat Exams 03/18/22 11:[address] ANGIOGRAPHY NECK [CT] Stat Exams 03/18/22 13:17 Completed CTA HEAD W AND/OR WO CONTRAST [CT] Stat Exams 03/18/22 13:15 Completed HEAD WITHOUT CONTRAST [CT] Stat Exams 03/18/22 11:32 Completed CBC W DIFF Stat Lab 03/18/22 11:35 Completed CMP Stat Lab 03/18/22 11:35 Completed Lactic Acid Stat Lab 03/18/22 11:30 Completed MAGNESIUM Stat Lab 03/18/22 11:35 Completed NT PRO BNP Stat Lab 03/18/22 11:35 Completed POCT GLUCOSE Stat Lab 03/18/22 11:28 Completed PROTIME WITH INR Stat Lab 03/18/22 11:35 Completed PTT Stat Lab 03/18/22 11:35 Completed TROPONIN Q4H Lab 03/18/22 11:35 Completed TROPONIN Q4H Lab 03/18/22 14:36 Completed UA W/RFX CULTURE Stat Lab 03/18/22 13:53 Completed Medication Summary Generic Name Dose Route Start Last Admin Trade Name Freq PRN Reason Stop Dose Admin Carvedilol 3.125 mg 03/19/22 10:00 03/18/22 18:21 Carvedilol 3.125 Mg Tablet PO 04/18/22 09:59 3.125 mg DAILY MANAV Administration Discontinued Medications Generic Name Dose Route Start Last Admin Trade Name Martha PRN Reason Stop Dose Admin Carvedilol Confirm 03/18/22 18:17 Carvedilol 3.125 Mg Tablet Administered 03/18/22 18:18 Dose 3.125 mg .ROUTE .STK-MED ONE Lab/Rad Data: Laboratory Result Diagrams 03/18/22 11:35 03/18/22 11:35 Laboratory Results 03/18/22 03/18/22 03/18/22 Range/Units Unknown 14:36 13:53 WBC (4.0-10.5) x10^3/uL RBC (4.1-5.6) x10^6/uL Hgb (12.5-18.0) g/dL Hct (42-50) % MCV (78-100) fL MCH (26-32) pg MCHC (32-36) g/dL RDW (11.5-14.0) % Plt Count (150-450) x10^3/uL MPV (7.5-11.0) fL Gran % (36.0-66.0) % Immature Gran % (Auto) (0.00-0.4) % Nucleat RBC Rel Count (0.00-0.1) % Eos # (Auto) (0-0.5) x10^3/uL Immature Gran # (Auto) (0.00-0.03) x10^3u/L Absolute Lymphs (auto) (1.0-4.6) x10^3/uL Absolute Monos (auto) (0.0-1.3) x10^3/uL Absolute Nucleated RBC (0.00-0.01) x10^3u/L Lymphocytes % (24.0-44.0) % Monocytes % (0.0-12.0) % Eosinophils % (0.00-5.0) % Basophils % (0.0-0.4) % Absolute Granulocytes (1.4-6.9) x10^3/uL Basophils # (0-0.4) x10^3/uL PT (9.4-12.5) SECONDS INR (0.8-3.0) APTT (25.1-36.5) SECONDS Sodium (137-145) mmol/L Potassium (3.5-5.1) mmol/L Chloride (98-107) mmol/L Carbon Dioxide (22-30) mmol/L Anion Gap (5-15) MEQ/L BUN (9-20) mg/dL Creatinine (0.66-1.25) mg/dL Estimated GFR ML/MIN Glucose (74-106) mg/dL POC Glucometer (74 to 106) mg/dL Lactic Acid (0.4-2.0) Calcium (8.4-10.2) mg/dL Magnesium (1.6-2.3) mg/dL Total Bilirubin (0.2-1.3) mg/dL AST (17-59) U/L ALT (0-50) U/L Alkaline Phosphatase (38-126) U/L Troponin I < 0.012 (0.000-0.034) ng/mL NT-Pro-B Natriuret Pep (0-1800) pg/mL Serum Total Protein (6.3-8.2) g/dL Albumin (3.5-5.0) g/dL Urinalys Dipstick Clnc MAIN LAB Urine Color YELLOW (YELLOW) Urine Appearance CLEAR (CLEAR) Urine pH 7.0 (5-6) Ur Specific [place] 1.020 (1.005-1.025) POC Urine Protein Conf NEGATIVE (Negative) Urine Ketones TRACE (NEGATIVE) Urine Nitrite NEGATIVE (NEGATIVE) Urine Bilirubin NEGATIVE (NEGATIVE) Urine Urobilinogen 0.2 (0-1) mg/dL Urine Leukocytes NEGATIVE (NEGATIVE) Urine WBC (Auto) 3-5 (0-5) /HPF Urine RBC (Auto) 0-2 (0-2) /HPF U Epithel Cells (Auto) NONE (FEW) /HPF Urine Bacteria (Auto) RARE (NEGATIVE) /HPF Urine RBC NEGATIVE (0-5) Bronson/ul Ur Culture Indicated? NO Urine Glucose >=1000 (NEGATIVE) mg/dL Digoxin < 0.4 L (0.8-1.9) ng/mL Influenza Type A Ag (NEGATIVE) Influenza Type B Ag (NEGATIVE) RSV (PCR) (Negative) SARS-CoV-2 (PCR) (NEGATIVE) 03/18/22 03/18/22 03/18/22 Range/Units 13:51 11:35 11:35 WBC (4.0-10.5) x10^3/uL RBC (4.1-5.6) x10^6/uL Hgb (12.5-18.0) g/dL Hct (42-50) % MCV (78-100) fL MCH (26-32) pg MCHC (32-36) g/dL RDW (11.5-14.0) % Plt Count (150-450) x10^3/uL MPV (7.5-11.0) fL Gran % (36.0-66.0) % Immature Gran % (Auto) (0.00-0.4) % Nucleat RBC Rel Count (0.00-0.1) % Eos # (Auto) (0-0.5) x10^3/uL Immature Gran # (Auto) (0.00-0.03) x10^3u/L Absolute Lymphs (auto) (1.0-4.6) x10^3/uL Absolute Monos (auto) (0.0-1.3) x10^3/uL Absolute Nucleated RBC (0.00-0.01) x10^3u/L Lymphocytes % (24.0-44.0) % Monocytes % (0.0-12.0) % Eosinophils % (0.00-5.0) % Basophils % (0.0-0.4) % Absolute Granulocytes (1.4-6.9) x10^3/uL Basophils # (0-0.4) x10^3/uL PT 9.7 (9.4-12.5) SECONDS INR 0.91 (0.8-3.0) APTT 24.1 L (25.1-36.5) SECONDS Sodium (137-145) mmol/L Potassium (3.5-5.1) mmol/L Chloride (98-107) mmol/L Carbon Dioxide (22-30) mmol/L Anion Gap (5-15) MEQ/L BUN (9-20) mg/dL Creatinine (0.66-1.25) mg/dL Estimated GFR ML/MIN Glucose (74-106) mg/dL POC Glucometer (74 to 106) mg/dL Lactic Acid (0.4-2.0) Calcium (8.4-10.2) mg/dL Magnesium (1.6-2.3) mg/dL Total Bilirubin (0.2-1.3) mg/dL AST (17-59) U/L ALT (0-50) U/L Alkaline Phosphatase (38-126) U/L Troponin I < 0.012 (0.000-0.034) ng/mL NT-Pro-B Natriuret Pep (0-1800) pg/mL Serum Total Protein (6.3-8.2) g/dL Albumin (3.5-5.0) g/dL Urinalys Dipstick Clnc Urine Color (YELLOW) Urine Appearance (CLEAR) Urine pH (5-6) Ur Specific [place] (1.005-1.025) POC Urine Protein Conf (Negative) Urine Ketones (NEGATIVE) Urine Nitrite (NEGATIVE) Urine Bilirubin (NEGATIVE) Urine Urobilinogen (0-1) mg/dL Urine Leukocytes (NEGATIVE) Urine WBC (Auto) (0-5) /HPF Urine RBC (Auto) (0-2) /HPF U Epithel Cells (Auto) (FEW) /HPF Urine Bacteria (Auto) (NEGATIVE) /HPF Urine RBC (0-5) Bronson/ul Ur Culture Indicated? Urine Glucose (NEGATIVE) mg/dL Digoxin (0.8-1.9) ng/mL Influenza Type A Ag NEGATIVE (NEGATIVE) Influenza Type B Ag NEGATIVE (NEGATIVE) RSV (PCR) NEGATIVE (Negative) SARS-CoV-2 (PCR) NEGATIVE (NEGATIVE) 03/18/22 03/18/22 03/18/22 Range/Units 11:35 11:35 11:30 WBC 8.0 (4.0-10.5) x10^3/uL RBC 4.31 (4.1-5.6) x10^6/uL Hgb 14.0 (12.5-18.0) g/dL Hct 42.3 (42-50) % MCV 98.1 (78-100) fL MCH 32.5 H (26-32) pg MCHC 33.1 (32-36) g/dL RDW 14.0 (11.5-14.0) % Plt Count 178 (150-450) x10^3/uL MPV 8.9 (7.5-11.0) fL Gran % 55.1 (36.0-66.0) % Immature Gran % (Auto) 0.4 (0.00-0.4) % Nucleat RBC Rel Count 0.0 (0.00-0.1) % Eos # (Auto) 0.56 H (0-0.5) x10^3/uL Immature Gran # (Auto) 0.03 (0.00-0.03) x10^3u/L Absolute Lymphs (auto) 2.32 (1.0-4.6) x10^3/uL Absolute Monos (auto) 0.60 (0.0-1.3) x10^3/uL Absolute Nucleated RBC 0.00 (0.00-0.01) x10^3u/L Lymphocytes % 28.9 (24.0-44.0) % Monocytes % 7.5 (0.0-12.0) % Eosinophils % 7.0 H (0.00-5.0) % Basophils % 1.1 (0.0-0.4) % Absolute Granulocytes 4.42 (1.4-6.9) x10^3/uL Basophils # 0.09 (0-0.4) x10^3/uL PT (9.4-12.5) SECONDS INR (0.8-3.0) APTT (25.1-36.5) SECONDS Sodium 136 L (137-145) mmol/L Potassium 4.4 (3.5-5.1) mmol/L Chloride 101 (98-107) mmol/L Carbon Dioxide 28 (22-30) mmol/L Anion Gap 11.4 (5-15) MEQ/L BUN 22 H (9-20) mg/dL Creatinine 0.68 (0.66-1.25) mg/dL Estimated GFR > 60.0 ML/MIN Glucose 172 H (74-106) mg/dL POC Glucometer (74 to 106) mg/dL Lactic Acid 1.5 (0.4-2.0) Calcium 9.2 (8.4-10.2) mg/dL Magnesium 2.0 (1.6-2.3) mg/dL Total Bilirubin 0.60 (0.2-1.3) mg/dL AST 23 (17-59) U/L ALT 20 (0-50) U/L Alkaline Phosphatase 108 (38-126) U/L Troponin I (0.000-0.034) ng/mL NT-Pro-B Natriuret Pep 57.7 (0-1800) pg/mL Serum Total Protein 6.5 (6.3-8.2) g/dL Albumin 3.8 (3.5-5.0) g/dL Urinalys Dipstick Clnc Urine Color (YELLOW) Urine Appearance (CLEAR) Urine pH (5-6) Ur Specific [place] (1.005-1.025) POC Urine Protein Conf (Negative) Urine Ketones (NEGATIVE) Urine Nitrite (NEGATIVE) Urine Bilirubin (NEGATIVE) Urine Urobilinogen (0-1) mg/dL Urine Leukocytes (NEGATIVE) Urine WBC (Auto) (0-5) /HPF Urine RBC (Auto) (0-2) /HPF U Epithel Cells (Auto) (FEW) /HPF Urine Bacteria (Auto) (NEGATIVE) /HPF Urine RBC (0-5) Bronson/ul Ur Culture Indicated? Urine Glucose (NEGATIVE) mg/dL Digoxin (0.8-1.9) ng/mL Influenza Type A Ag (NEGATIVE) Influenza Type B Ag (NEGATIVE) RSV (PCR) (Negative) SARS-CoV-2 (PCR) (NEGATIVE) 03/18/22 Range/Units 11:28 WBC (4.0-10.5) x10^3/uL RBC (4.1-5.6) x10^6/uL Hgb (12.5-18.0) g/dL Hct (42-50) % MCV (78-100) fL MCH (26-32) pg MCHC (32-36) g/dL RDW (11.5-14.0) % Plt Count (150-450) x10^3/uL MPV (7.5-11.0) fL Gran % (36.0-66.0) % Immature Gran % (Auto) (0.00-0.4) % Nucleat RBC Rel Count (0.00-0.1) % Eos # (Auto) (0-0.5) x10^3/uL Immature Gran # (Auto) (0.00-0.03) x10^3u/L Absolute Lymphs (auto) (1.0-4.6) x10^3/uL Absolute Monos (auto) (0.0-1.3) x10^3/uL Absolute Nucleated RBC (0.00-0.01) x10^3u/L Lymphocytes % (24.0-44.0) % Monocytes % (0.0-12.0) % Eosinophils % (0.00-5.0) % Basophils % (0.0-0.4) % Absolute Granulocytes (1.4-6.9) x10^3/uL Basophils # (0-0.4) x10^3/uL PT (9.4-12.5) SECONDS INR (0.8-3.0) APTT (25.1-36.5) SECONDS Sodium (137-145) mmol/L Potassium (3.5-5.1) mmol/L Chloride (98-107) mmol/L Carbon Dioxide (22-30) mmol/L Anion Gap (5-15) MEQ/L BUN (9-20) mg/dL Creatinine (0.66-1.25) mg/dL Estimated GFR ML/MIN Glucose (74-106) mg/dL POC Glucometer 168 H (74 to 106) mg/dL Lactic Acid (0.4-2.0) Calcium (8.4-10.2) mg/dL Magnesium (1.6-2.3) mg/dL Total Bilirubin (0.2-1.3) mg/dL AST (17-59) U/L ALT (0-50) U/L Alkaline Phosphatase (38-126) U/L Troponin I (0.000-0.034) ng/mL NT-Pro-B Natriuret Pep (0-1800) pg/mL Serum Total Protein (6.3-8.2) g/dL Albumin (3.5-5.0) g/dL Urinalys Dipstick Clnc Urine Color (YELLOW) Urine Appearance (CLEAR) Urine pH (5-6) Ur Specific [place] (1.005-1.025) POC Urine Protein Conf (Negative) Urine Ketones (NEGATIVE) Urine Nitrite (NEGATIVE) Urine Bilirubin (NEGATIVE) Urine Urobilinogen (0-1) mg/dL Urine Leukocytes (NEGATIVE) Urine WBC (Auto) (0-5) /HPF Urine RBC (Auto) (0-2) /HPF U Epithel Cells (Auto) (FEW) /HPF Urine Bacteria (Auto) (NEGATIVE) /HPF Urine RBC (0-5) Bronson/ul Ur Culture Indicated? Urine Glucose (NEGATIVE) mg/dL Digoxin (0.8-1.9) ng/mL Influenza Type A Ag (NEGATIVE) Influenza Type B Ag (NEGATIVE) RSV (PCR) (Negative) SARS-CoV-2 (PCR) (NEGATIVE) - Progress Progress Note: 03/18/22 17:07 Neuro consult believes that pt possibly has a cerebellar CVA/States that pt needs a MRI-MRV of brain and can not wait ntil Monday to obtain/Would not anticoagulate at this time 03/18/22 17:[address] 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
[2022-03-18 14:30] LABS: INFLUENZA A NEGATIVE (NEGATIVE); INFLUENZA B NEGATIVE (NEGATIVE); RESPIRATORY SYNCTIAL VIRUS NEGATIVE (Negative); SARS-CoV-2 Xpert Express NEGATIVE (NEGATIVE)
[2022-03-18 14:58] LABS: Appearance CLEAR (CLEAR); Bilirubin NEGATIVE (NEGATIVE); Glucose >=1000 mg/dL (NEGATIVE)
[2022-03-18 14:59] LABS: Dipstick done @ ? MAIN LAB; Ketones TRACE (NEGATIVE); Nitrite NEGATIVE (NEGATIVE); Protein,Urine Dip NEGATIVE (Negative); RBC NEGATIVE Ery/ul (0-5); Urobilinogen 0.2 mg/dL (0-1)
[2022-03-18 15:00] LABS: Bacteria RARE /HPF (NEGATIVE); RBC 0-2 /HPF (0-2); Urine Cultured Indicated? NO
--- NOTE | 2022-03-18 15:27 | XRAY ---
Indication: Lethargy. "Off balance." Conventional CTA neck performed using 80 cc Isovue 370 contrast. Two-dimensional sagittal and coronal reformatted images obtained. Additional 3-dimensional reformatted images obtained using a separate workstation. Comparison: None Visualized aortic arch demonstrates very minimal arteriosclerotic calcifications with widely patent right brachiocephalic, left common carotid, and left subclavian arteries. Examination of the right carotid circulation demonstrates very minimal eccentric calcifications at the level of the bulb. Remaining common carotid, internal carotid, and external carotid arteries are normal in CTA appearance. Examination of the left carotid circulation demonstrates mild eccentric calcified plaquing at the level of the bulb. Remaining common carotid, internal carotid, and external carotid arteries are normal in CTA appearance. Vertebral arteries are bilaterally normal in CTA appearance with the left slightly larger in caliber. Parotid and submandibular glands are bilaterally symmetric. A few subcentimeter cervical lymph nodes bilaterally. No pathologic lymphadenopathy. Supra and infraglottic airway widely patent. Osseous structures intact with osteopenia and mild/moderate multilevel degenerative spondylosis. Multiple bilateral dental amalgams produces beam artifact. Lung apices demonstrates scattered subsegmental atelectasis/scarring, right lung greater than left.. Impression: 1. Very minimal right and mild left carotid bulb calcifications without critical stenosis/occlusion. Remaining CTA neck with contrast exam is normal. 2. Incidental osteopenia and multilevel degenerative spondylosis.
--- NOTE | 2022-03-18 15:32 | XRAY ---
Indication: Lethargy. "Off balance." Conventional CTA head performed using 80 cc Isovue 370 contrast. Two-dimensional sagittal and coronal reformatted images obtained. Additional 3-dimensional reformatted images obtained using a separate workstation. Comparison: None Distal internal carotid arteries are bilaterally symmetric with minimal arteriosclerotic calcifications involving the parasellar segments, left greater than right. No critical stenosis, stenosis, or AV malformation. Normal carotid terminus with normal branching A1 and M1 segments bilaterally. More distal anterior cerebral, middle cerebral, and anterior communicating arteries are normal in CTA appearance. Posterior circulation demonstrates normal CTA appearance to the basilar, left/right posterior cerebral, left/right superior cerebellar, and left/right anterior-inferior cerebellar arteries. Venous sinuses demonstrates a few tiny nonoccluding thrombi in the superior sagittal sinus near the vertex. No abnormal enhancing intra or extra-axial brain mass. Impression: 1. Minimal arteriosclerotic calcifications parasellar segments of the internal carotid arteries, left greater than right. 2. Tiny nonoccluding venous thrombi superior sagittal sinus. 3. Remaining CTA head with contrast exam is negative.
[2022-03-18 18:10] VITALS: PULSE 80
[2022-03-18 18:11] VITALS: BP 102/83
[2022-03-18] MEDS ORDERED: Coreg 3.125 MG ONE (18:17)
[2022-03-19] MEDS ORDERED: Coreg 3.125 MG PO SCH (10:00)
== END 2022-03-18 18:55 | disposition short-term general hospital (02) ==
LOC: ED 11:08
DX: I63.443 Cerebral infarction due to embolism of bilateral cerebellar arteries (principal); I25.10 Atherosclerotic heart disease of native coronary artery without angina pectoris; E11.9 Type 2 diabetes mellitus without complications; E78.5 Hyperlipidemia, unspecified; I10 Essential (primary) hypertension; R26.9 Unspecified abnormalities of gait and mobility; Z79.899 Other long term (current) drug therapy; Z20.828 Contact with and (suspected) exposure to other viral communicable diseases
CPT/HCPCS: 0241U; 36000; 36415; 70450; 70496; 70498; 71045; 80053; 80162; 81015; 82947; 83605; 83735; 83880; 84484; 85025; 85610; 85730; 93005; 99285; A9270-GY

== ENCOUNTER 2022-06-27 09:51 | Emergency (ER) | payer MEDICARE ==
--- NOTE | 2022-06-27 10:03 | ERPHSYRPT ---
- History of Present Illness Time Seen by Provider: 06/27/22 10:03 Source: patient, family Exam Limitations: no limitations Physician History: This is an 86-year-old white male patient of Dr. Vieyra who complains of dizziness and weakness in the last couple of days. He also states there is some vision changes. Yesterday, his gabapentin medication was increased to 600 mg. He had similar symptoms on 03/18/2022 and was seen in this emergency department. 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 Patient has a history of hyperlipidemia, diabetes, coronary artery disease and he has cardiac stents in place. He is also on digoxin. He has a history of hypertension. He denies chest pain. He denies shortness of breath. He denies abdominal pain Timing/Duration: intermittent Severity: mild (To moderate) Deficits: off balance, decrease ability to stand, decrease ability to walk Baseline/Normal Cognition: alert oriented x 3 Current Cognition: alert oriented x 3 Baseline Gait: uses cane Associated Symptoms: weakness Allergies/Adverse Reactions: No Known Drug Allergies Allergy (Verified 03/18/22 11:19) Home Medications: Aspirin EC 81 mg [Ecotrin 81 mg] 81 mg PO DAILY 04/25/21 [History] Atorvastatin Calcium 20 mg PO HS 04/25/21 [History] Carvedilol 3.125 mg [Coreg 3.125 MG] 3.125 mg PO BID 04/25/21 [History] Cholecalciferol (Vitamin D3) [Vitamin D3] 1 tab PO DAILY 04/25/21 [History] Clopidogrel Bisulfate [PLAVIX Tablet] 75 mg PO DAILY 04/25/21 [History] Digoxin 250 mcg PO DAILY 04/25/21 [History] Dulaglutide [Trulicity] 3 mg SQ WEEKLY 04/25/21 [History] Empagliflozin [Jardiance] 5 mg PO DAILY 04/25/21 [History] Gabapentin [Neurontin ] 300 mg PO TID 04/25/21 [History] Glipizide/Metformin HCl [Glipizide-Metformin 5-500 mg] 1 tablet PO TID 04/25/21 [History] Mirabegron [Myrbetriq] 25 mg PO DAILY 04/25/21 [History] Multivitamin 1 tablet PO DAILY 04/25/21 [History] Insulin Glargine [Lantus Insulin] 25 units PO BID 02/11/22 [History] Hx Tetanus, Diphtheria Vaccination/Date Given: Yes Hx Influenza Vaccination/Date Given: Yes (02/10/22) Hx Pneumococcal Vaccination/Date Given: Yes (Maybe) Travel Risk - International Travel Have you traveled outside of the country in past 3 weeks: No - Coronavirus Screening Are you exhibiting any of the following symptoms?: No Close contact with a COVID-19 positive Pt in past 14-21 Days: No - Vaccine Status Have you recieved a Covid-19 vaccination: Yes [employer]: [employer] - Vaccination Dates Date of 2cond Vaccination (if applicable): 01/06/21 - Review of Systems Constitutional: Weakness Eyes: No Symptoms Ears, Nose, & Throat: No Symptoms Respiratory: No Symptoms Cardiac: No Symptoms Abdominal/Gastrointestinal: No Symptoms Genitourinary Symptoms: No Symptoms Musculoskeletal: No Symptoms Skin: No Symptoms Neurological: Dizziness, Other (Nonfocal weakness but weakness is generalized) Psychological: No Symptoms Endocrine: No Symptoms Hematologic/Lymphatic: No Symptoms Immunological/Allergic: No Symptoms All Other Systems: Reviewed and Negative - Past Medical History Pertinent Past Medical History: Yes Neurological History: No Pertinent History ENT History: Cataracts Cardiac History: Coronary Artery Disease, Hypertension Respiratory History: No Pertinent History Endocrine Medical History: Diabetes Type II Musculoskeletal History: No Pertinent History GI Medical History: No Pertinent History History: No Pertinent History Psycho-Social History: No Pertinent History Male Reproductive Disorders: Prostate Problems Other Medical History: back surgery (discectomy), 5 stents in heart(2014) - Past Surgical History Past Surgical History: Yes Neuro Surgical History: No Pertinent History Cardiac: Cardiac Catheterization, Cardiac Stent Respiratory: No Pertinent History Gastrointestinal: Appendectomy Genitourinary: No Pertinent History Musculoskeletal: Other Male Surgical History: Prostate Surgery Other Surgical History: achilles tendon, back surgery - Social History Smoking Status: Never smoker Exposure to second hand smoke: No Drug Use: none Patient Lives Alone: No - Nursing Vital Signs Nursing Vital Signs: Initial Vital Signs Temperature 97.2 F 06/27/22 10:06 Pulse Rate 80 06/27/22 10:06 Respiratory Rate 20 06/27/22 10:06 Blood Pressure 132/82 06/27/22 10:06 O2 Sat by Pulse Oximetry 95 06/27/22 10:06 Pain Scale Pain Intensity 0 - Chrisman Coma Scale Best Eye Response (Sherley): (4) open spontaneously Best Verbal Response (Sherley): (5) oriented Best Motor Response (Chrisman): (6) obeys commands Chrisman Total: 15 - Physical Exam General Appearance: no apparent distress, alert Eye Exam: bilateral eye: normal inspection, PERRL, EOMI Ears, Nose, Throat Exam: normal ENT inspection, moist mucous membranes Neck Exam: normal inspection, non-tender, supple, full range of motion Respiratory: normal breath sounds, lungs clear, airway intact, No chest tenderne ss, No respiratory distress Cardiovascular: regular rate/rhythm, normal heart sounds, normal peripheral pulses Gastrointestinal: soft, normal bowel sounds, No tenderness Rectal Exam: not done Back Exam: normal inspection, normal range of motion, No CVA tenderness, No vertebral tenderness Extremity Exam: normal inspection, normal range of motion, pelvis stable Mental Status: alert, oriented x 3, 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 No acute ischemic changes on today's EKG. No signif icant change from twelve-lead EKG performed on 03/18/2022) Ordered Tests: Active Orders 24 hr Category Date Time Status EKG-ER Only STAT Care 06/27/22 10:07 Active IV Insertion STAT Care 06/27/22 10:07 Active NPO (ED) STAT Care 06/27/22 10:07 Active HEAD WITHOUT CONTRAST [CT] Stat Exams 06/27/22 10:07 Completed CBC W DIFF Stat Lab 06/27/22 10:20 Completed CMP Stat Lab 06/27/22 10:20 Completed PROTIME WITH INR Stat Lab 06/27/22 10:20 Completed UA W/RFX UR CULTURE Stat Lab 06/27/22 12:10 Completed Lab/Rad Data: Laboratory Result Diagrams 06/27/22 10:20 06/27/22 10:20 Laboratory Results 06/27/22 06/27/22 06/27/22 Range/Units 12:11 12:10 10:20 WBC (4.0-10.5) x10^3/uL RBC (4.1-5.6) x10^6/uL Hgb (12.5-18.0) g/dL Hct (42-50) % MCV (78-100) fL MCH (26-32) pg MCHC (32-36) g/dL RDW (11.5-14.0) % Plt Count (150-450) x10^3/uL MPV (7.5-11.0) fL Gran % (36.0-66.0) % Immature Gran % (Auto) (0.00-0.4) % Nucleat RBC Rel Count (0.00-0.1) % Eos # (Auto) (0-0.5) x10^3/uL Immature Gran # (Auto) (0.00-0.03) x10^3u/L Absolute Lymphs (auto) (1.0-4.6) x10^3/uL Absolute Monos (auto) (0.0-1.3) x10^3/uL Absolute Nucleated RBC (0.00-0.01) x10^3u/L Lymphocytes % (24.0-44.0) % Monocytes % (0.0-12.0) % Eosinophils % (0.00-5.0) % Basophils % (0.0-0.4) % Absolute Granulocytes (1.4-6.9) x10^3/uL Basophils # (0-0.4) x10^3/uL PT (9.4-12.5) SECONDS INR (0.8-3.0) Sodium (137-145) mmol/L Potassium (3.5-5.1) mmol/L Chloride (98-107) mmol/L Carbon Dioxide (22-30) mmol/L Anion Gap (5-15) MEQ/L BUN (9-20) mg/dL Creatinine (0.66-1.25) mg/dL Estimated GFR ML/MIN Glucose (74-106) mg/dL Calcium (8.4-10.2) mg/dL Total Bilirubin (0.2-1.3) mg/dL AST (17-59) U/L ALT (0-50) U/L Alkaline Phosphatase (38-126) U/L Serum Total Protein (6.3-8.2) g/dL Albumin (3.5-5.0) g/dL Urine Color Yellow (Yellow) Urine Appearance Clear (Clear) Urine pH 5.0 (4.6-8.0) Ur Specific [place] >=1.030 A (1.005-1.030) Urine Protein Negative (Negative) Urine Glucose (UA) >=1000 A (Negative) mg/dL Urine Ketones Trace A (Negative) Urine Blood Negative (Negative) Urine Nitrite Negative (Negative) Urine Bilirubin Negative (Negative) Urine Urobilinogen 0.2 (0.2) mg/dL Ur Leukocyte Esterase Negative (Negative) U Hyaline Cast (Auto) NONE SEEN (0-2) /LPF Urine Microscopic RBC 0-2 (0-5) /HPF Urine Microscopic WBC 3-5 (0-5) /HPF Ur Epithelial Cells None Seen (None Seen) /HPF Urine Bacteria None Seen (None Seen) /HPF Urine Culture Reflexed NO (NO) Digoxin 0.7 L (0.8-1.9) ng/mL Influenza Type A Ag NEGATIVE (NEGATIVE) Influenza Type B Ag NEGATIVE (NEGATIVE) RSV (PCR) NEGATIVE (Negative) SARS-CoV-2 (PCR) NEGATIVE (NEGATIVE) 06/27/22 06/27/22 06/27/22 Range/Units 10:20 10:20 10:20 WBC 6.1 (4.0-10.5) x10^3/uL RBC 4.40 (4.1-5.6) x10^6/uL Hgb 14.3 (12.5-18.0) g/dL Hct 43.1 (42-50) % MCV 98.0 (78-100) fL MCH 32.5 H (26-32) pg MCHC 33.2 (32-36) g/dL RDW 13.4 (11.5-14.0) % Plt Count 155 (150-450) x10^3/uL MPV 8.8 (7.5-11.0) fL Gran % 52.9 (36.0-66.0) % Immature Gran % (Auto) 0.2 (0.00-0.4) % Nucleat RBC Rel Count 0.0 (0.00-0.1) % Eos # (Auto) 0.28 (0-0.5) x10^3/uL Immature Gran # (Auto) 0.01 (0.00-0.03) x10^3u/L Absolute Lymphs (auto) 2.08 (1.0-4.6) x10^3/uL Absolute Monos (auto) 0.45 (0.0-1.3) x10^3/uL Absolute Nucleated RBC 0.00 (0.00-0.01) x10^3u/L Lymphocytes % 33.9 (24.0-44.0) % Monocytes % 7.3 (0.0-12.0) % Eosinophils % 4.6 (0.00-5.0) % Basophils % 1.1 (0.0-0.4) % Absolute Granulocytes 3.25 (1.4-6.9) x10^3/uL Basophils # 0.07 (0-0.4) x10^3/uL PT 10.0 (9.4-12.5) SECONDS INR 0.94 (0.8-3.0) Sodium 137 (137-145) mmol/L Potassium 4.2 (3.5-5.1) mmol/L Chloride 104 (98-107) mmol/L Carbon Dioxide 26 (22-30) mmol/L Anion Gap 11.7 (5-15) MEQ/L BUN 21 H (9-20) mg/dL Creatinine 0.76 (0.66-1.25) mg/dL Estimated GFR > 60.0 ML/MIN Glucose 202 H (74-106) mg/dL Calcium 8.8 (8.4-10.2) mg/dL Total Bilirubin 0.60 (0.2-1.3) mg/dL AST 26 (17-59) U/L ALT 19 (0-50) U/L Alkaline Phosphatase 84 (38-126) U/L Serum Total Protein 6.6 (6.3-8.2) g/dL Albumin 4.0 (3.5-5.0) g/dL Urine Color (Yellow) Urine Appearance (Clear) Urine pH (4.6-8.0) Ur Specific [place] (1.005-1.030) Urine Protein (Negative) Urine Glucose (UA) (Negative) mg/dL Urine Ketones (Negative) Urine Blood (Negative) Urine Nitrite (Negative) Urine Bilirubin (Negative) Urine Urobilinogen (0.2) mg/dL Ur Leukocyte Esterase (Negative) U Hyaline Cast (Auto) (0-2) /LPF Urine Microscopic RBC (0-5) /HPF Urine Microscopic WBC (0-5) /HPF Ur Epithelial Cells (None Seen) /HPF Urine Bacteria (None Seen) /HPF Urine Culture Reflexed (NO) Digoxin (0.8-1.9) ng/mL Influenza Type A Ag (NEGATIVE) Influenza Type B Ag (NEGATIVE) RSV (PCR) (Negative) SARS-CoV-2 (PCR) (NEGATIVE) - Progress Progress: improved, re-examined Progress Note: 06/27/22 13:34 CT scan of the head without contrast shows nonacute findings. However there are areas of remote infarcts present. 06/27/22 13:34 Medical decision making: Using the history obtained from the patient and old charts and combining that with the information I obtained from the laboratory work-up and radiographic work-up as well as discussion with Dr. Vieyra, this patient has medical issues of moderate complexity. Patient appears to have medication side effect following an increase of his gabapentin. Dr. Vieyra and I both feel the patient can be safely discharged to home. He is to call Dr. Vieyra in his office by phone to make arrangements for follow-up appointment. Patient and his daughter, who is a nurse, feel that they do not need home health or physical therapy services arranged today. They will discuss things with Dr. Vieyra at his next appointment. Patient has no abdominal pain. He has no chest pain he has no shortness of breath. Discussed with : Machelle Counseled pt/family regarding: lab results, diagnosis, need for follow-up, rad results - Departure Departure Disposition: Home Clinical Impression: Medication reaction, Weakness Condition: Stable Critical Care Time: No Referrals: ROWENA VIEYRA MD [Primary Care Provider] - Follow up/PCP as directed Additional Instructions: Decrease your gabapentin dosage back to what it was prior to the most recent change. Call Dr. Vieyra's office later today to make arrangements for follow-up appointment.
[2022-06-27 10:28] LABS: Absolute Neutrophil Ct (ANC) 3.25 x10^3/uL (1.4-6.9); BASOPHIL % 1.1 % (0.0-0.4); Basophil (Absolute #) 0.07 x10^3/uL (0-0.4); Eosinophil % 4.6 % (0.00-5.0); Eosinophil (Absolute #) 0.28 x10^3/uL (0-0.5); Hematocrit 43.1 % (42-50); Hemoglobin 14.3 g/dL (12.5-18.0); IMMATURE GRAN # 0.01 x10^3u/L (0.00-0.03); IMMATURE GRAN % 0.2 % (0.00-0.4); Lymphocyte (Absolute #) 2.08 x10^3/uL (1.0-4.6); Lymphocytes % 33.9 % (24.0-44.0); Mean Corpuscular Hemoglobin 32.5 pg (26-32); Mean Corpuscular Hgb Concent. 33.2 g/dL (32-36); Mean Platelet Volume 8.8 fL (7.5-11.0); Monocyte (Absolute #) 0.45 x10^3/uL (0.0-1.3); Monocytes % 7.3 % (0.0-12.0); Neutrophil % 52.9 % (36.0-66.0); Platelet Count 155 x10^3/uL (150-450); Red Cell Distribution Width 13.4 % (11.5-14.0); White Blood Count 6.1 x10^3/uL (4.0-10.5)
[2022-06-27 10:38] LABS: INR 0.94 (0.8-3.0)
[2022-06-27 10:40] LABS: ALKALINE PHOSPHATASE 84 U/L (38-126); ANION GAP 11.7 MEQ/L (5-15); BLOOD UREA NITROGEN 21 mg/dL (9-20); CHLORIDE 104 mmol/L (98-107); Calcium 8.8 mg/dL (8.4-10.2); Carbon Dioxide 26 mmol/L (22-30); Creatinine 1 0.76 mg/dL (0.66-1.25); EST GLOMERULAR FILTRATION RATE > 60.0 ML/MIN; Glucose 202 mg/dL (74-106); Potassium 4.2 mmol/L (3.5-5.1); SGOT/AST 26 U/L (17-59); SGPT/ALT 19 U/L (0-50); SODIUM 137 mmol/L (137-145); Total Protein 6.6 g/dL (6.3-8.2)
--- NOTE | 2022-06-27 10:55 | XRAY ---
Indication: Dizziness. Multiple contiguous axial images obtained through the head without contrast. Comparison: March 18, 2022. Again age-appropriate global atrophy, mild periventricular degenerative micro-ischemia, and remote lacunar infarct right basal ganglia. No acute intracranial hemorrhage, abnormal extra-axial fluid collection, or mass effect. Fourth ventricle is midline without hydrocephalus. Bony calvarium intact. Visualized paranasal sinuses and mastoid air cells are clear. Impression: Again nonacute senile brain with remote lacunar infarct right basal ganglia.
[2022-06-27 13:04] LABS: INFLUENZA A NEGATIVE (NEGATIVE); INFLUENZA B NEGATIVE (NEGATIVE); RESPIRATORY SYNCTIAL VIRUS NEGATIVE (Negative); SARS-CoV-2 Xpert Express NEGATIVE (NEGATIVE)
[2022-06-27 13:07] LABS: Appearance Clear (Clear); Bacteria None Seen /HPF (None Seen); Bilirubin Negative (Negative); Blood Negative (Negative); Epithelial Cells None Seen /HPF (None Seen); Glucose, Urine >=1000 mg/dL (Negative); Hyaline Casts NONE SEEN /LPF (0-2); Ketones Trace (Negative); Leukocyte Esterase Negative (Negative); Nitrite Negative (Negative); Protein,Urine Dip Negative (Negative); RBC 0-2 /HPF (0-5); Specific Gravity >=1.030 (1.005-1.030); Urobilinogen 0.2 mg/dL (0.2)
[2022-06-27 13:22] LABS: ADD URINE CULTURE? NO (NO)
[2022-06-27 14:05] VITALS: BP 120/57; PULSE 76; O2SAT 98
== END 2022-06-27 14:27 | disposition home or self-care (01) ==
LOC: ED 09:51
DX: R53.1 Weakness (principal); T42.6X5A Adverse effect of other antiepileptic and sedative-hypnotic drugs, initial encounter; R42 Dizziness and giddiness; H53.9 Unspecified visual disturbance; E78.5 Hyperlipidemia, unspecified; E11.9 Type 2 diabetes mellitus without complications; I10 Essential (primary) hypertension; Z79.02 Long term (current) use of antithrombotics/antiplatelets; Z79.85 Long-term (current) use of injectable non-insulin antidiabetic drugs; Z79.84 Long term (current) use of oral hypoglycemic drugs; Z79.4 Long term (current) use of insulin; Z79.899 Other long term (current) drug therapy; Z20.828 Contact with and (suspected) exposure to other viral communicable diseases
CPT/HCPCS: 0241U; 36000; 36415; 70450; 80053; 80162; 81001; 85025; 85610; 93005; 99284

== ENCOUNTER 2022-10-11 14:52 | Emergency (ER) | payer MEDICARE ==
--- NOTE | 2022-10-11 15:22 | ERPHSYRPT ---
- History of Present Illness Time Seen by Provider: 10/11/22 15:00 Source: patient, family Exam Limitations: no limitations Patient Subjective Stated Complaint: C/O Fall yesterday around 3pm that is causing left knee pain. Patient states he has not pain at this time while lying in bed, he only has pain when standing/ambulating. Triage Nursing Assessment: Patient brought back to ER in w/c. He transferred self from chair to bed. He is alert and oriented; hard of hearing. No SOB. Coban and tegaderm dressing removed from left knee. 2 small abrasions noted to knee without drainage. Proximal abrasion measures 0.5cm X 1cm and distal abrasion measures 2.5cm X 3.5cm. Patient able to move and bend LLE without difficulties. Physician History: Patient is an 86-year-old white male who fell approximately 24 hours ago injuri ng his left knee and aggravating chronic low back pain. He is pain-free when off his leg and not weightbearing but when he tries to stand or walk he has pain. He does have 2 areas of abrasion he is noted to the knee. Occurred: yesterday Reason for Fall: unknown Injuries/Pain Location: lower extremity (Left knee) Loss of Consciousness: no loss of consciousness Quality: throbbing Severity of Pain-Max: moderate Severity of Pain-Current: none (When on not weightbearing) Associated Symptoms (Fall): back pain Allergies/Adverse Reactions: No Known Drug Allergies Allergy (Verified 10/11/22 15:02) Home Medications: Aspirin EC 81 mg [Ecotrin 81 mg] 81 mg PO DAILY 04/25/21 [History] Atorvastatin Calcium 20 mg PO HS 04/25/21 [History] Carvedilol 3.125 mg [Coreg 3.125 MG] 3.125 mg PO BID 04/25/21 [History] Cholecalciferol (Vitamin D3) [Vitamin D3] 1 tab PO DAILY 04/25/21 [History] Clopidogrel Bisulfate [PLAVIX Tablet] 75 mg PO DAILY 04/25/21 [History] Digoxin 250 mcg PO DAILY 04/25/21 [History] Dulaglutide [Trulicity] 3 mg SQ WEEKLY 04/25/21 [History] Empagliflozin [Jardiance] 5 mg PO DAILY 04/25/21 [History] Gabapentin [Neurontin ] 300 mg PO TID 04/25/21 [History] Glipizide/Metformin HCl [Glipizide-Metformin 5-500 mg] 1 tablet PO TID 04/25/21 [History] Mirabegron [Myrbetriq] 25 mg PO DAILY 04/25/21 [History] Multivitamin 1 tablet PO DAILY 04/25/21 [History] Insulin Glargine [Lantus Insulin] 25 units PO BID 02/11/22 [History] Hx Tetanus, Diphtheria Vaccination/Date Given: Yes Hx Influenza Vaccination/Date Given: Yes (02/10/22) Hx Pneumococcal Vaccination/Date Given: Yes (Maybe) Immunizations Up to Date: Yes Travel Risk - International Travel Have you traveled outside of the country in past 3 weeks: No - Coronavirus Screening Are you exhibiting any of the following symptoms?: No Close contact with a COVID-19 positive Pt in past 14-21 Days: No - Vaccine Status Have you recieved a Covid-19 vaccination: Yes [employer]: [employer] - Vaccination Dates Date of 2cond Vaccination (if applicable): 01/06/21 - Review of Systems Constitutional: No Fever, No Chills Eyes: No Symptoms Ears, Nose, & Throat: No Symptoms Respiratory: No Cough, No Dyspnea Cardiac: No Chest Pain, No Edema, No Syncope Abdominal/Gastrointestinal: No Abdominal Pain, No Nausea, No Vomiting, No Diarrhea Genitourinary Symptoms: No Dysuria Musculoskeletal: Back Pain, Joint Pain (Left knee), No Neck Pain Skin: Rash Neurological: No Dizziness, No Focal Weakness, No Sensory Changes Psychological: No Symptoms Endocrine: No Symptoms All Other Systems: Reviewed and Negative - Past Medical History Pertinent Past Medical History: Yes Neurological History: No Pertinent History ENT History: Cataracts Cardiac History: Coronary Artery Disease, High Cholesterol, Hypertension Respiratory History: No Pertinent History Endocrine Medical History: Diabetes Type II Musculoskeletal History: No Pertinent History GI Medical History: No Pertinent History History: No Pertinent History Psycho-Social History: No Pertinent History Male Reproductive Disorders: Prostate Problems Other Medical History: back surgery (discectomy), 5 stents in heart(2014) - Past Surgical History Past Surgical History: Yes Neuro Surgical History: No Pertinent History Cardiac: Cardiac Catheterization, Cardiac Stent Respiratory: No Pertinent History Gastrointestinal: Appendectomy Genitourinary: No Pertinent History Musculoskeletal: Other Male Surgical History: Prostate Surgery Other Surgical History: achilles tendon, back surgery (discectomy), 5 stents in heart(2015) - Social History Smoking Status: Never smoker Exposure to second hand smoke: No Drug Use: none Patient Lives Alone: No - Nursing Vital Signs Nursing Vital Signs: Initial Vital Signs Temperature 96.7 F 10/11/22 14:52 Pulse Rate 91 H 10/11/22 14:52 Respiratory Rate 17 10/11/22 14:52 Blood Pressure 140/81 10/11/22 14:52 O2 Sat by Pulse Oximetry 95 10/11/22 14:52 Pain Scale Pain Intensity 0 - Sherley Coma Score Best Eye Response (Sherley): (4) open spontaneously Best Verbal Response (Sherley): (5) oriented Best Motor Response ([place]): (6) obeys commands Sherley Total: 15 - Physical Exam General Appearance: no apparent distress, alert Head Injury: no evidence of injury Eye Exam: PERRL/EOMI ENT Exam: airway nml Neck Exam: normal inspection, No tenderness Respiratory/Chest Exam: normal breath sounds, No chest tenderness, No respirat ory distress Cardiovascular Exam: normal heart sounds, regular rate/rhythm Gastrointestinal Exam: soft, No tenderness, No distention, No guarding, No ecchymosis Back Exam: normal inspection, other (Some lumbar tenderness to palpation), No vertebral tenderness Extremity Exam: pain with movement, other (Abrasions superficial left knee) Neurologic Exam: alert, oriented x 3, cooperative Skin Exam: normal color, warm, dry SpO2 Interpretation: normal SpO2: 95 O2 Delivery: Room Air Procedures - Splinting Time of Procedure: 16:24 Location of Splint: Left, Knee Type of Splint: Other (Knee immobilizer) Splint Applied By: ED Nurse Pre-Proc Neuro Vasc Exam: normal Post-Proc Neuro Vasc Exam: neurovascular intact, unchanged from pre-exam Progress: To be worn when awake until he sees his PCP - Course Nursing assessment & vital signs reviewed: Yes - Radiology Exams Left Knee X-ray Interpretation: Interpreted by me (Loss of joint space to [id number] and degenerative changes.) L-Spine X-ray Interpretation: Interpreted by me, Other (Lumbar spine degenerative changes no acute injury noted) Ordered Tests: Active Orders 24 hr Category Date Time Status Immobilizer STAT Care 10/11/22 16:22 Active KNEE (3 VIEWS) Stat Exams 10/11/22 15:01 Taken LUMBAR LIMITED (2 OR 3 VIEWS) Stat Exams 10/11/22 15:01 Taken - Progress Progress: improved, pain not gone completely Medical Desision Making - Diagnostic Testing Radiological Interpretation: Interpreted by me - Risk of complications Minimal Risk: Minimal risk of morbidity - Departure Departure Disposition: Home Clinical Impression: Knee sprain, Fall Condition: Stable Critical Care Time: No Referrals: ROWENA VIEYRA MD [Primary Care Provider] - Follow up/PCP as directed Additional Instructions: Wear knee immobilizer at all times when not in bed. See Dr. Vieyra in 4 to 5 days
[2022-10-11 16:24] VITALS: BP 126/78; PULSE 91
--- NOTE | 2022-10-11 16:25 | XRAY ---
Indication: Pain following fall. Comparison: None 3 view left knee demonstrates osteopenia, mild/moderate tricompartmental degenerative changes greatest medial compartment with chunky posterior heterotopic ossifications, tiny nonspecific effusion, and extensive scattered vascular calcifications. No other bony, articular, or soft tissue abnormalities.
--- NOTE | 2022-10-11 16:27 | XRAY ---
Indication: Pain following fall. Comparison: None 3 view lumbar spine demonstrates 5 lumbar segments with osteopenia, mild/moderate multilevel thoracolumbar degenerative spondylosis greatest at L4-L5, 1 cm anterolisthesis L4 on L5, and mild scattered vascular calcifications. No other bony, articular, or soft tissue abnormalities.
[2022-10-11 16:29] VITALS: O2SAT 95
== END 2022-10-11 16:38 | disposition home or self-care (01) ==
LOC: ED 14:52
DX: S83.92XA Sprain of unspecified site of left knee, initial encounter (principal); W19.XXXA Unspecified fall, initial encounter; G89.29 Other chronic pain; M54.50 Low back pain, unspecified; E78.5 Hyperlipidemia, unspecified; I10 Essential (primary) hypertension; E11.9 Type 2 diabetes mellitus without complications; Z79.02 Long term (current) use of antithrombotics/antiplatelets; Z79.4 Long term (current) use of insulin; Z79.84 Long term (current) use of oral hypoglycemic drugs; Z79.85 Long-term (current) use of injectable non-insulin antidiabetic drugs; Z79.899 Other long term (current) drug therapy
CPT/HCPCS: 72100; 73562; 99283; L1830

== ENCOUNTER 2022-10-20 10:21 | Emergency (ER) | payer MEDICARE ==
--- NOTE | 2022-10-20 10:51 | ERPHSYRPT ---
- History of Present Illness Time Seen by Provider: 10/20/22 10:40 Source: patient Exam Limitations: no limitations Patient Subjective Stated Complaint: pt here for pain to inside of left knee for a week now after a fall, he states the pain is worse, Triage Nursing Assessment: pt alert, resp easy, walked in with a cane, gait steady. has bruising to left knee, Physician History: Patient is an 86-year-old male presents to our ED for evaluation of left medial knee pain. Patient fell last week. Since then patient has been experiencing some left knee pain. Patient had his knee x-rayed at that time. X-rays were negative. However patient is now developing pain on the medial side which she is not sure if this pain is related to his fall last week. He denies interval falls. Patient took hydrocodone prior to arrival. Patient declined additional pain medication. Pain described as an ache that is localized. No radiation. Pain worse with weightbearing and palpation. Pain improves with rest. Patient voices no other complaints or concerns at this time. Portions of this note were created with voice recognition technology. There may be grammatical, spelling, punctuation or sound alike errors Method of Injury: other (Patient fell last week.) Occurred: last week Quality: intermittent Severity of Pain-Max: moderate Severity of Pain-Current: mild (Patient declined pain medication) Lower Extremities Pain: knee: left Modifying Factors: Improves With: movement Associated Symptoms: none Allergies/Adverse Reactions: No Known Drug Allergies Allergy (Verified 10/20/22 10:26) Home Medications: Aspirin EC 81 mg [Ecotrin 81 mg] 81 mg PO DAILY 04/25/21 [History] Atorvastatin Calcium 20 mg PO HS 04/25/21 [History] Carvedilol 3.125 mg [Coreg 3.125 MG] 3.125 mg PO BID 04/25/21 [History] Cholecalciferol (Vitamin D3) [Vitamin D3] 1 tab PO DAILY 04/25/21 [History] Clopidogrel Bisulfate [PLAVIX Tablet] 75 mg PO DAILY 04/25/21 [History] Digoxin 250 mcg PO DAILY 04/25/21 [History] Dulaglutide [Trulicity] 3 mg SQ WEEKLY 04/25/21 [History] Empagliflozin [Jardiance] 5 mg PO DAILY 04/25/21 [History] Gabapentin [Neurontin ] 300 mg PO TID 04/25/21 [History] Glipizide/Metformin HCl [Glipizide-Metformin 5-500 mg] 1 tablet PO TID 04/25/21 [History] Mirabegron [Myrbetriq] 25 mg PO DAILY 04/25/21 [History] Multivitamin 1 tablet PO DAILY 04/25/21 [History] Insulin Glargine [Lantus Insulin] 25 units PO BID 02/11/22 [History] Hx Tetanus, Diphtheria Vaccination/Date Given: Yes Hx Influenza Vaccination/Date Given: Yes (02/10/22) Hx Pneumococcal Vaccination/Date Given: Yes (Maybe) Immunizations Up to Date: Yes Travel Risk - International Travel Have you traveled outside of the country in past 3 weeks: No - Coronavirus Screening Are you exhibiting any of the following symptoms?: No Close contact with a COVID-19 positive Pt in past 14-21 Days: No - Vaccine Status Have you recieved a Covid-19 vaccination: Yes Binding [employer]: [employer] - Vaccination Dates Date of 2cond Vaccination (if applicable): 01/06/21 - Review of Systems Constitutional: No Symptoms, No Fever, No Chills Eyes: No Symptoms Ears, Nose, & Throat: No Symptoms Respiratory: No Symptoms, No Cough, No Dyspnea Cardiac: No Symptoms, No Chest Pain, No Edema, No Syncope Abdominal/Gastrointestinal: No Symptoms, No Abdominal Pain, No Nausea, No Vomiting, No Diarrhea Genitourinary Symptoms: No Symptoms, No Dysuria Musculoskeletal: No Symptoms, No Back Pain, No Neck Pain Skin: No Symptoms, No Rash Neurological: No Symptoms, No Dizziness, No Focal Weakness, No Sensory Changes Psychological: No Symptoms Endocrine: No Symptoms Hematologic/Lymphatic: No Symptoms Immunological/Allergic: No Symptoms All Other Systems: Reviewed and Negative - Past Medical History Pertinent Past Medical History: Yes Neurological History: No Pertinent History ENT History: Cataracts Cardiac History: Coronary Artery Disease, High Cholesterol, Hypertension Respiratory History: No Pertinent History Endocrine Medical History: Diabetes Type II Musculoskeletal History: No Pertinent History GI Medical History: No Pertinent History History: No Pertinent History Psycho-Social History: No Pertinent History Male Reproductive Disorders: Prostate Problems Other Medical History: back surgery (discectomy), 5 stents in heart(2014) - Past Surgical History Past Surgical History: Yes Neuro Surgical History: No Pertinent History Cardiac: Cardiac Catheterization, Cardiac Stent Respiratory: No Pertinent History Gastrointestinal: Appendectomy Genitourinary: No Pertinent History Musculoskeletal: Other Male Surgical History: Prostate Surgery Other Surgical History: achilles tendon, back surgery (discectomy), 5 stents in heart(2015) - Social History Smoking Status: Never smoker Exposure to second hand smoke: No Drug Use: none Patient Lives Alone: No - Nursing Vital Signs Nursing Vital Signs: Initial Vital Signs Temperature 96.1 F 10/20/22 10:27 Pulse Rate 67 10/20/22 10:27 Respiratory Rate 18 10/20/22 10:27 Blood Pressure 143/84 10/20/22 10:27 O2 Sat by Pulse Oximetry 98 10/20/22 10:27 Pain Scale Pain Intensity 8 - Physical Exam General Appearance: no apparent distress, alert Eyes, Ears, Nose, Throat Exam: normal ENT inspection, TMs normal, moist mucous membranes Neck Exam: normal inspection, non-tender, supple, full range of motion Cardiovascular/Respiratory Exam: chest non-tender, normal breath sounds, regular rate/rhythm, no respiratory distress Gastrointestinal/Abdominal Exam: non-tender, soft, guarding Back Exam: normal inspection, normal range of motion, No vertebral tenderness Hips Exam: bilateral: non-tender, normal inspection, normal range of motion, no evidence of injury Legs Exam: bilateral leg: non-tender, normal inspection, normal range of motion, no evidence of injury Knees Exam: left knee: pain, soft tissue tenderness, other (Left knee shows resolving ecchymosis from previous fall. Some arthritic deformity observed. Knee ligaments are stable. Extensor mechanism intact. Extremities neurov ascular tact distally. Compartments are soft. Cap refill less than 2 seconds.) Ankle Exam: bilateral ankle: non-tender, normal inspection, normal range of motion, no evidence of injury Foot Exam: bilateral foot: non-tender, normal inspection, normal range of motion, no evidence of injury Neuro/Tendon Exam: normal sensation, normal motor functions Mental Status Exam: alert, oriented x 3, cooperative Skin Exam: normal color, warm, dry SpO2 Interpretation: normal SpO2: 98 O2 Delivery: Room Air - Course Nursing assessment & vital signs reviewed: Yes - Radiology Exams Knee X-ray Interpretation: Interpreted by me (Tricompartmental advanced knee arthritis. No fracture dislocation) Ordered Tests: Active Orders 24 hr Category Date Time Status KNEE (3 VIEWS) Stat Exams 10/20/22 10:34 Ordered - Progress Progress: improved - Departure Departure Disposition: Home Clinical Impression: Knee pain, Arthritis of knee Condition: Stable Critical Care Time: No Referrals: ROWENA VIEYRA MD [Primary Care Provider] - Follow up/PCP as directed Additional Instructions: Discharge/Care Plan BURTON REYES was seen on 10/20/22 in the Emergency Room. The patient was counseled regarding Diagnosis,Lab results, Imaging studies, need for follow up and when to return to the Emergency Room. Prescriptions given: Discharge Note I have spoken with the patient and/or caregivers. I have explained the patient's condition, diagnosis and treatment plan based on the information available to me at this time. I have answered the patient's and/or caregiver's questions and addressed any concerns. The patient and/or caregivers have as good understanding of the patient's diagnosis, condition and treatment plan as can be expected at this point. The vital signs have been stable. The patient's condition is stable and appropriate for discharge from the emergency department. The patient will pursue further outpatient evaluation with the primary care physician or other designated or consulting physician as outlined in the discharge instructions. The patient and/or caregivers are agreeable to this plan of care and follow-up instructions have been explained in detail. The patient and/or caregivers have received these instruction. The patient/and or caregivers are aware that any significant change in condition or worsening of symptoms should prompt an immediate return to this or the closest emergency department or call 911. Outpatient Orders: Ortho Referral Time Frame: 1 Day, Facility: [facility]. Hosp, Location: [facility]
[2022-10-20] MEDS ORDERED: TORAdol 30 mg Injection IM ONE (11:05)
[2022-10-20] MEDS ORDERED: TORAdol 30 mg Injection ONE (11:07)
[2022-10-20 11:35] VITALS: BP 110/79; PULSE 60; O2SAT 95
--- NOTE | 2022-10-20 15:08 | XRAY ---
Indication: Pain following fall one week ago. Comparison: October 11, 2022 3 view left knee unchanged again demonstrating osteopenia, mild/moderate tricompartmental degenerative changes with chunky posterior heterotopic ossifications, tiny nonspecific effusion, and extensive scattered vascular calcifications. No new/acute abnormalities.
== END 2022-10-20 11:35 | disposition home or self-care (01) ==
LOC: ED 10:21
DX: M17.12 Unilateral primary osteoarthritis, left knee (principal); M25.562 Pain in left knee; E78.5 Hyperlipidemia, unspecified; I10 Essential (primary) hypertension; E11.9 Type 2 diabetes mellitus without complications; Z79.02 Long term (current) use of antithrombotics/antiplatelets; Z79.4 Long term (current) use of insulin; Z79.84 Long term (current) use of oral hypoglycemic drugs; Z79.85 Long-term (current) use of injectable non-insulin antidiabetic drugs; Z79.899 Other long term (current) drug therapy
CPT/HCPCS: 73562; 96372; 99283; J1885

== ENCOUNTER 2023-05-16 09:07 | Observation (INO) | payer MEDICARE ==
[2023-05-16] MEDS: Sodium Chloride 0.9% 1000 ML 1,000 ML IV SCH (09:37)
--- NOTE | 2023-05-16 10:11 | ERPHSYRPT ---
- History of Present Illness Time Seen by Provider: 05/16/23 09:30 Source: patient Exam Limitations: no limitations Patient Subjective Stated Complaint: Pt states "I have been weak and dizzy for the past two days. I have fallen twice." Triage Nursing Assessment: Pt presented alert and oriented X3, skin pwd. Pt able to speak in clear full sentences. Pt has 20 g iv in his left ac, pt has a couple skin tears on his arms. Pt resting comfortably on the bed. Physician History: Patient is an 87-year-old male With a history of diabetes hyperlipidemia hypertension coronary artery disease presents to our ED via EMS for evaluation of Dizziness and a fall. Patient states he has been feeling dizzy for 2 days. He fell twice yesterday. Patient denies injury. No obvious pain. Patient symptoms are ongoing. No worsening or improving factors. No associated chest pain. No nausea vomiting or diaphoresis. No fever. Patient conversant well- appearing and in no acute distress. Portions of this note were created with voice recognition technology. There may be grammatical, spelling, punctuation or sound alike errors Timing/Duration: yesterday Severity: moderate Modifying Factors: Improves With: nothing Associated Symptoms: denies symptoms Allergies/Adverse Reactions: No Known Drug Allergies Allergy (Verified 02/25/23 19:25) Home Medications: Aspirin EC 81 mg [Ecotrin 81 mg] 81 mg PO DAILY 04/25/21 [History] Atorvastatin Calcium 20 mg PO HS 04/25/21 [History] Carvedilol 3.125 mg [Coreg 3.125 MG] 3.125 mg PO BID 04/25/21 [History] Cholecalciferol (Vitamin D3) [Vitamin D3] 1 tab PO DAILY 04/25/21 [History] Clopidogrel Bisulfate [PLAVIX Tablet] 75 mg PO DAILY 04/25/21 [History] Digoxin 125 mcg PO DAILY 04/25/21 [History] Dulaglutide [Trulicity] 3 mg SQ WEEKLY 04/25/21 [History] Empagliflozin [Jardiance] 25 mg PO DAILY 04/25/21 [History] Gabapentin [Neurontin ] 600 mg PO TID 04/25/21 [History] Glipizide/Metformin HCl [Glipizide-Metformin 5-500 mg] 1 tablet PO TID 04/25/21 [History] Mirabegron [Myrbetriq] 25 mg PO DAILY 04/25/21 [History] Multivitamin 1 tablet PO DAILY 04/25/21 [History] Insulin Glargine [Lantus Insulin] 25 units PO DAILY 02/11/22 [History] Amoxicillin 500 mg PO QID 05/16/23 [History] Hx Tetanus, Diphtheria Vaccination/Date Given: Yes Hx Influenza Vaccination/Date Given: No (02/10/22) Hx Pneumococcal Vaccination/Date Given: Yes Immunizations Up to Date: No Travel Risk - International Travel Have you traveled outside of the country in past 3 weeks: No - Coronavirus Screening Are you exhibiting any of the following symptoms?: No Close contact with a COVID-19 positive Pt in past 14-21 Days: No - Vaccine Status Have you recieved a Covid-19 vaccination: Yes [employer]: [employer] - Vaccination Dates Date of 2cond Vaccination (if applicable): 01/06/21 - Review of Systems Constitutional: No Symptoms, No Fever, No Chills Eyes: No Symptoms Ears, Nose, & Throat: No Symptoms Respiratory: No Symptoms, No Cough, No Dyspnea Cardiac: No Symptoms, No Chest Pain, No Edema, No Syncope Abdominal/Gastrointestinal: No Symptoms, No Abdominal Pain, No Nausea, No Vomiting, No Diarrhea Genitourinary Symptoms: No Symptoms, No Dysuria Musculoskeletal: No Symptoms, No Back Pain, No Neck Pain Skin: No Symptoms, No Rash Neurological: No Symptoms, No Dizziness, No Focal Weakness, No Sensory Changes Psychological: No Symptoms Endocrine: No Symptoms Hematologic/Lymphatic: No Symptoms Immunological/Allergic: No Symptoms All Other Systems: Reviewed and Negative - Past Medical History Pertinent Past Medical History: Yes Neurological History: No Pertinent History ENT History: Cataracts Cardiac History: Coronary Artery Disease, High Cholesterol, Hypertension Respiratory History: No Pertinent History Endocrine Medical History: Diabetes Type II Musculoskeletal History: No Pertinent History GI Medical History: No Pertinent History History: No Pertinent History Psycho-Social History: No Pertinent History Male Reproductive Disorders: Prostate Problems Other Medical History: back surgery (discectomy), 5 stents in heart(2014) - Past Surgical History Past Surgical History: Yes Neuro Surgical History: No Pertinent History Cardiac: Cardiac Catheterization, Cardiac Stent Respiratory: No Pertinent History Gastrointestinal: Appendectomy Genitourinary: No Pertinent History Musculoskeletal: Other Male Surgical History: Prostate Surgery Other Surgical History: achilles tendon, back surgery (discectomy), 5 stents in heart(2015) - Social History Smoking Status: Never smoker Exposure to second hand smoke: No Drug Use: none Patient Lives Alone: No - Nursing Vital Signs Nursing Vital Signs: Initial Vital Signs Temperature 97.8 F 05/16/23 09:15 Pulse Rate 96 H 05/16/23 09:15 Respiratory Rate 20 05/16/23 09:15 Blood Pressure 111/72 05/16/23 09:15 O2 Sat by Pulse Oximetry 98 05/16/23 09:15 Pain Scale Pain Intensity 0 - Physical Exam General Appearance: no apparent distress, alert Eye Exam: PERRL/EOMI, eyes nml inspection Ears, Nose, Throat Exam: normal ENT inspection, TMs normal, pharynx normal, other (Dry appearing oral mucous membranes) Neck Exam: normal inspection, non-tender, supple, full range of motion Respiratory Exam: normal breath sounds, lungs clear, airway intact, No respiratory distress Cardiovascular Exam: regular rate/rhythm, normal heart sounds, normal peripheral pulses Gastrointestinal/Abdomen Exam: soft, normal bowel sounds, No tenderness, No mass Back Exam: normal inspection, normal range of motion, No CVA tenderness, No vertebral tenderness Extremity Exam: normal inspection, normal range of motion, pelvis stable Neurologic Exam: alert, oriented x 3, cooperative, normal mood/affect, sensation nml, No motor deficits Skin Exam: normal color, warm, dry, No rash Lymphatic Exam: No adenopathy SpO2 Interpretation: normal SpO2: 96 O2 Delivery: Room Air - Course Nursing assessment & vital signs reviewed: Yes EKG Interpreted by Me: RATE (97), Sinus Rhythm, NORMAL AXIS, NORMAL INTERVALS (Prolonged [place] interval) - Radiology Exams Chest X-ray Interpretation: Teleradiologist Report (No new or acute finding) - CT Exams Head CT Interpretation: Tele-radiologist Report (Nonacute senile brain with remote lacunar infarct right basal Ganglia) Ordered Tests: Active Orders 24 hr Category Date Time Status Lining Setter STAT Care 05/16/23 09:29 Active EKG-ER Only STAT Care 05/16/23 09:29 Active IV Insertion STAT Care 05/16/23 09:29 Active Pulse Oximetry (ED) STAT Care 05/16/23 09:29 Active CHEST 1 VIEW (PORTABLE) Stat Exams 05/16/23 12:23 Completed HEAD WITHOUT CONTRAST [CT] Stat Exams 05/16/23 11:04 Completed CBC W DIFF Stat Lab 05/16/23 09:55 Completed CMP Stat Lab 05/16/23 09:55 Completed MAGNESIUM Stat Lab 05/16/23 09:55 Completed TROPONIN Q4H Lab 05/16/23 09:55 Completed TROPONIN Q4H Lab 05/16/23 13:10 Received TROPONIN Q4H Lab 05/16/23 17:30 Ordered UA W/RFX UR CULTURE Stat Lab 05/16/23 09:29 Ordered Medication Summary Generic Name Dose Route Start Last Admin Trade Name Freq PRN Reason Stop Dose Admin Sodium Chloride 1,000 mls @ 50 mls/hr 05/16/23 09:30 05/16/23 09:37 Sodium Chloride 0.9% 1000 Ml IV 06/15/23 09:29 50 mls/hr .Q20H MANAV Administration Lab/Rad Data: Laboratory Result Diagrams 05/16/23 09:55 05/16/23 09:55 Laboratory Results 05/16/23 05/16/23 05/16/23 Range/Units 09:55 09:55 09:55 WBC (4.0-10.5) x10^3/uL RBC (4.1-5.6) x10^6/uL Hgb (12.5-18.0) g/dL Hct (42-50) % MCV (78-100) fL MCH (26-32) pg MCHC (32-36) g/dL RDW (11.5-14.0) % Plt Count (150-450) x10^3/uL MPV (7.5-11.0) fL Gran % (36.0-66.0) % Immature Gran % (Auto) (0.00-0.4) % Nucleat RBC Rel Count (0.00-0.1) % Eos # (Auto) (0-0.5) x10^3/uL Immature Gran # (Auto) (0.00-0.03) x10^3u/L Absolute Lymphs (auto) (1.0-4.6) x10^3/uL Absolute Monos (auto) (0.0-1.3) x10^3/uL Absolute Nucleated RBC (0.00-0.01) x10^3u/L Lymphocytes % (24.0-44.0) % Monocytes % (0.0-12.0) % Eosinophils % (0.00-5.0) % Basophils % (0.0-0.4) % Absolute Granulocytes (1.4-6.9) x10^3/uL Basophils # (0-0.4) x10^3/uL Sodium (137-145) mmol/L Potassium (3.5-5.1) mmol/L Chloride (98-107) mmol/L Carbon Dioxide (22-30) mmol/L Anion Gap (5-15) MEQ/L BUN (9-20) mg/dL Creatinine (0.66-1.25) mg/dL Estimated GFR ML/MIN Glucose (74-106) mg/dL Calcium (8.4-10.2) mg/dL Magnesium (1.6-2.3) mg/dL Total Bilirubin (0.2-1.3) mg/dL AST (17-59) U/L ALT (0-50) U/L Alkaline Phosphatase (38-126) U/L Troponin I 0.015 (0.000-0.034) ng/mL Serum Total Protein (6.3-8.2) g/dL Albumin (3.5-5.0) g/dL Digoxin 0.6 L (0.8-1.9) ng/mL Influenza Type A Ag NEGATIVE (NEGATIVE) Influenza Type B Ag NEGATIVE (NEGATIVE) RSV (PCR) NEGATIVE (NEGATIVE) SARS-CoV-2 (PCR) POSITIVE A (NEGATIVE) 05/16/23 05/16/23 Range/Units 09:55 09:55 WBC 13.0 H (4.0-10.5) x10^3/uL RBC 4.54 (4.1-5.6) x10^6/uL Hgb 14.9 (12.5-18.0) g/dL Hct 45.8 (42-50) % MCV 100.9 H (78-100) fL MCH 32.8 H (26-32) pg MCHC 32.5 (32-36) g/dL RDW 13.2 (11.5-14.0) % Plt Count 171 (150-450) x10^3/uL MPV 9.0 (7.5-11.0) fL Gran % 78.5 H (36.0-66.0) % Immature Gran % (Auto) 0.3 (0.00-0.4) % Nucleat RBC Rel Count 0.0 (0.00-0.1) % Eos # (Auto) 0.01 (0-0.5) x10^3/uL Immature Gran # (Auto) 0.04 H (0.00-0.03) x10^3u/L Absolute Lymphs (auto) 1.75 (1.0-4.6) x10^3/uL Absolute Monos (auto) 0.93 (0.0-1.3) x10^3/uL Absolute Nucleated RBC 0.00 (0.00-0.01) x10^3u/L Lymphocytes % 13.4 L (24.0-44.0) % Monocytes % 7.1 (0.0-12.0) % Eosinophils % 0.1 (0.00-5.0) % Basophils % 0.6 (0.0-0.4) % Absolute Granulocytes 10.22 H (1.4-6.9) x10^3/uL Basophils # 0.08 (0-0.4) x10^3/uL Sodium 135 L (137-145) mmol/L Potassium 4.5 (3.5-5.1) mmol/L Chloride 98 (98-107) mmol/L Carbon Dioxide 19 L (22-30) mmol/L Anion Gap 22.0 H (5-15) MEQ/L BUN 22 H (9-20) mg/dL Creatinine 1.02 (0.66-1.25) mg/dL Estimated GFR 70.7 ML/MIN Glucose 191 H (74-106) mg/dL Calcium 8.8 (8.4-10.2) mg/dL Magnesium 2.2 (1.6-2.3) mg/dL Total Bilirubin 1.00 (0.2-1.3) mg/dL AST 31 (17-59) U/L ALT 17 (0-50) U/L Alkaline Phosphatase 75 (38-126) U/L Troponin I (0.000-0.034) ng/mL Serum Total Protein 6.9 (6.3-8.2) g/dL Albumin 4.0 (3.5-5.0) g/dL Digoxin (0.8-1.9) ng/mL Influenza Type A Ag (NEGATIVE) Influenza Type B Ag (NEGATIVE) RSV (PCR) (NEGATIVE) SARS-CoV-2 (PCR) (NEGATIVE) - Progress Progress: improved Progress Note: 87-year-old male presents to our ED for evaluation of generalized weakness and some dizziness. Physical exam reveals dry oral mucous membranes.Workup reveals a leukocytosis and mild hyponatremia at 135. Anion gap acidosis of 22. Case discussed with Dr. Cervantes Who excepts admission at 1:40 PM. 05/16/23 13:42 Complexity of problems addressed is moderate acute complicated Complexity of data reviewed and analyzed is extensive. Test ordered test reviewed. Results analyzed and correlated clinically. Plan of care/management discussed with hospitalist Dr. Cervantes Who accepts admission to observation Risk of complication and or risk of morbidity/mortality of patient management is high. Patient requires hospitalization for further evaluation and treatment. Vital stable. Time spent to admit patient is approximately 20 minutes. Plan of care established for shared decision making. Portions of this note were created with voice recognition technology. There may be grammatical, spelling, punctuation or sound alike errors 05/16/23 13:43 Counseled pt/family regarding: lab results, diagnosis, rad results - Departure Departure Disposition: Observation Clinical Impression: COVID-19, Leukocytosis, Generalized weakness, Dehydration, Hyponatremia, High anion gap metabolic acidosis Condition: Stable Critical Care Time: No Referrals: ROWENA VIEYRA MD [Primary Care Provider] - Follow up/PCP as directed
[2023-05-16 10:15] LABS: Absolute Neutrophil Ct (ANC) 10.22 x10^3/uL (1.4-6.9); BASOPHIL % 0.6 % (0.0-0.4); Basophil (Absolute #) 0.08 x10^3/uL (0-0.4); Eosinophil % 0.1 % (0.00-5.0); Eosinophil (Absolute #) 0.01 x10^3/uL (0-0.5); Hematocrit 45.8 % (42-50); Hemoglobin 14.9 g/dL (12.5-18.0); IMMATURE GRAN # 0.04 x10^3u/L (0.00-0.03); IMMATURE GRAN % 0.3 % (0.00-0.4); Lymphocyte (Absolute #) 1.75 x10^3/uL (1.0-4.6); Lymphocytes % 13.4 % (24.0-44.0); Mean Cell Volume 100.9 fL (78-100); Mean Corpuscular Hemoglobin 32.8 pg (26-32); Mean Corpuscular Hgb Concent. 32.5 g/dL (32-36); Monocyte (Absolute #) 0.93 x10^3/uL (0.0-1.3); Monocytes % 7.1 % (0.0-12.0); Neutrophil % 78.5 % (36.0-66.0); Platelet Count 171 x10^3/uL (150-450); Red Blood Count 4.54 x10^6/uL (4.1-5.6); Red Cell Distribution Width 13.2 % (11.5-14.0)
[2023-05-16 10:31] LABS: Calcium 8.8 mg/dL (8.4-10.2); Creatinine 1 1.02 mg/dL (0.66-1.25); EST GLOMERULAR FILTRATION RATE 70.7 ML/MIN; MAGNESIUM 2.2 mg/dL (1.6-2.3); Potassium 4.5 mmol/L (3.5-5.1); Total Protein 6.9 g/dL (6.3-8.2)
[2023-05-16 10:57] LABS: INFLUENZA A NEGATIVE (NEGATIVE); INFLUENZA B NEGATIVE (NEGATIVE); RESPIRATORY SYNCTIAL VIRUS NEGATIVE (NEGATIVE)
[2023-05-16 11:03] LABS: SARS-CoV-2 Xpert Express POSITIVE (NEGATIVE)
--- NOTE | 2023-05-16 11:23 | XRAY ---
Indication: Dizziness. Frequent falls. Multiple contiguous axial images obtained through the head without contrast. Comparison: June 27, 2022 Again age-appropriate global atrophy, mild periventricular degenerative micro-ischemia, and remote lacunar infarct right basal ganglia. No acute intracranial hemorrhage, abnormal extra-axial fluid collection, or mass effect. Fourth ventricle is midline without hydrocephalus. Bony calvarium intact. Visualized paranasal sinuses and mastoid air cells are clear. Impression: Again nonacute senile brain with remote lacunar infarct right basal ganglia.
--- NOTE | 2023-05-16 12:50 | XRAY ---
Indication: Short of breath. Comparison: March 18, 2022 Portable chest unchanged again demonstrating minimal left base subsegmental atelectasis/scarring and a few tiny bilateral calcified granulomas. Remaining heart and lungs unremarkable. Bony thorax intact again with osteopenia, degenerative changes, and old right rib fractures. No new/acute findings.
[2023-05-16 15:12] LABS: Appearance Clear (Clear); Bacteria None Seen /HPF (None Seen); Bilirubin Negative (Negative); Blood Negative (Negative); Epithelial Cells None Seen /HPF (None Seen); Glucose, Urine >=1000 mg/dL (Negative); Hyaline Casts NONE SEEN /LPF (0-2); Ketones >=160 (Negative); Leukocyte Esterase Negative (Negative); Nitrite Negative (Negative); Protein,Urine Dip Negative (Negative); RBC 0-2 /HPF (0-5); Specific Gravity >=1.030 (1.005-1.030); Urobilinogen 0.2 mg/dL (0.2); WBC 0-2 /HPF (0-5)
[2023-05-16 15:14] LABS: ADD URINE CULTURE? NO (NO)
--- NOTE | 2023-05-16 17:43 | PCM.HP ---
History of Present Illness - Chief Complaint Chief Complaint: dizziness/frequent falls Date: 05/16/23 History of Present Illness: is a 87 year old male with a pmhx of DM, and CAD with stents who presented to ED with complaints of dizziness, unsteady gait, and multiple falls over the past two days. Prior to his fall he states his felt dizzy when standing, fumbled a bit and felt like his legs got weak and he fell down. He reports that the dizziness occurs mostly when he is changing positions. No "room spinning" sensation. No syncopal episodes or LOC or disorientation. No false/distorted sensation of self motion in any direction. Patient reports that he has a tooth infection which he is taking amoxicillin for. He has also developed a non-productive cough. Upon exam BUE/BLE noted with 5/5 strength. Denies fever,sob, cp, abdominal pain, ZULETA, N/V/D. Denies recent sick contacts. Upon arrival vitals were unremarkable. CT head demonstrating a nonacute senile brain with remote lacunar infarct right basal ganglia. CXR negative for cardiopulmonary process. Lab findings remarkable for leukocytosis with WBC at 13, MCV 100.9, sodium mildly low at 135, anion gap 22, co2 at 19, and BUN at 22. COVID 19 positive. Initial troponins negative. - Review of Systems Constitutional: No Symptoms Eyes: No Symptoms Ears, Nose, & Throat: No Symptoms Respiratory: Cough Cardiac: No Symptoms Abdominal/Gastrointestinal: No Symptoms Genitourinary Symptoms: No Symptoms Musculoskeletal: No Symptoms Skin: No Symptoms Neurological: Dizziness Psychological: No Symptoms Endocrine: No Symptoms Hematologic/Lymphatic: No Symptoms Immunological/Allergic: No Symptoms Medications & Allergies Home Medications: Home Medication List Aspirin EC 81 mg [Ecotrin 81 mg] 81 mg PO DAILY 04/25/21 [History Confirmed 05/16/23] Atorvastatin Calcium 20 mg PO HS 04/25/21 [History Confirmed 05/16/23] Carvedilol 3.125 mg [Coreg 3.125 MG] 3.125 mg PO BID 04/25/21 [History Confirmed 05/16/23] Cholecalciferol (Vitamin D3) [Vitamin D3] 1 tab PO DAILY 04/25/21 [History Confirmed 05/16/23] Clopidogrel Bisulfate [PLAVIX Tablet] 75 mg PO DAILY 04/25/21 [History Confirmed 05/16/23] Digoxin 125 mcg PO DAILY 04/25/21 [History Confirmed 05/16/23] Dulaglutide [Trulicity] 3 mg SQ WEEKLY 04/25/21 [History Confirmed 05/16/23] Empagliflozin [Jardiance] 25 mg PO DAILY 04/25/21 [History Confirmed 05/16/23] Gabapentin [Neurontin ] 600 mg PO TID 04/25/21 [History Confirmed 05/16/23] Glipizide/Metformin HCl [Glipizide-Metformin 5-500 mg] 1 tablet PO TID 04/25/21 [History Confirmed 05/16/23] Mirabegron [Myrbetriq] 25 mg PO DAILY 04/25/21 [History Confirmed 05/16/23] Multivitamin 1 tablet PO DAILY 04/25/21 [History Confirmed 05/16/23] Insulin Glargine [Lantus Insulin] 25 units PO DAILY 02/11/22 [History Confirmed 05/16/23] Amoxicillin 500 mg PO QID 05/16/23 [History Confirmed 05/16/23] Allergies/Adverse Reactions: Allergies Allergy/AdvReac Type Severity Reaction Status Date / Time No Known Drug Allergies Allergy Verified 02/25/23 19:25 - Past Medical History Past Medical History: Yes Neurological History: No Pertinent History ENT History: Cataracts Cardiac History: Coronary Artery Disease, High Cholesterol, Hypertension Respiratory History: No Pertinent History Endocrine Medical History: Diabetes Type II Musculoskelatal History: No Pertinent History GI Medical History: No Pertinent History History: No Pertinent History Pyscho-Social History: No Pertinent History Male Reproductive Disorders: Prostate Problems Comment: back surgery (discectomy), 5 stents in heart(2014) - Past Surgical History Past Surgical History: Yes Neuro Surgical History: No Pertinent History Cardiac History: Cardiac Catheterization, Cardiac Stent Respiratory Surgery: No Pertinent History GI Surgical History: Appendectomy Genitourinary Surgical Hx: No Pertinent History Musculskeletal Surgical Hx: Other Male Surgical History: Prostate Surgery Other Surgical History: achilles tendon, back surgery (discectomy), 5 stents in heart(2014) - Social History Smoking Status: Never smoker Exposure to second hand smoke: No Alcohol: None Drug Use: none - Physical Exam Vital Signs: Vital Signs - 24 hr Temp Pulse Resp BP BP Pulse Ox 05/16/23 17:15 94 H 22 114/75 94 L 05/16/23 17:01 94 H 25 H 125/74 94 L 05/16/23 16:45 88 14 98/67 100 05/16/23 16:30 94 H 20 109/68 95 05/16/23 16:15 94 H 25 H 98/61 94 L 05/16/23 16:00 95 H 17 102/64 95 05/16/23 15:45 96 H 19 101/66 94 L 05/16/23 15:30 89 20 105/66 94 L 05/16/23 15:15 98 H 20 92/62 94 L 05/16/23 15:00 95 H 20 105/67 95 05/16/23 14:59 88 20 95 05/16/23 14:52 101 H 21 95 05/16/23 14:30 113/69 05/16/23 14:15 95 H 18 102/65 96 05/16/23 14:00 94 H 19 99/71 93 L 05/16/23 13:46 96 05/16/23 13:45 94 H 18 109/65 95 05/16/23 13:30 83 20 119/77 92 L 05/16/23 13:15 96 H 17 107/68 96 05/16/23 13:00 94 H 20 125/74 94 L 05/16/23 12:45 88 20 103/76 96 05/16/23 12:30 96 H 19 134/74 97 05/16/23 12:15 96 H 20 109/72 94 L 05/16/23 12:00 90 19 110/70 94 L 05/16/23 11:45 98 H 21 118/70 94 L 05/16/23 11:30 97 H 20 120/71 93 L 05/16/23 11:15 96 H 18 123/76 93 L 05/16/23 11:14 97 H 19 95 05/16/23 11:11 95 05/16/23 10:45 118/73 05/16/23 10:30 94 H 20 111/68 05/16/23 10:15 88 19 126/69 05/16/23 10:01 88 21 129/75 05/16/23 09:55 96 05/16/23 09:45 89 24 123/78 97 05/16/23 09:30 95 H 21 120/70 94 L 05/16/23 09:15 97.8 F 98 H 13 111/72 111/72 95 General Appearance: no apparent distress Neurologic Exam: alert, oriented x 3, cooperative, electrochemist II-XII nml as tested Eye Exam: PERRL/EOMI Neck Exam: normal inspection Respiratory Exam: normal breath sounds, lungs clear Cardiovascular Exam: regular rate/rhythm, normal heart sounds Back Exam: normal inspection Extremity Exam: normal inspection Skin Exam: pale Results - Labs Lab/Micro Results: Lab Results-Last 24 Hours 05/16/23 05/16/23 05/16/23 Range/Units 09:55 09:55 09:55 WBC 13.0 H (4.0-10.5) x10^3/uL RBC 4.54 (4.1-5.6) x10^6/uL Hgb 14.9 (12.5-18.0) g/dL Hct 45.8 (42-50) % MCV 100.9 H (78-100) fL MCH 32.8 H (26-32) pg MCHC 32.5 (32-36) g/dL RDW 13.2 (11.5-14.0) % Plt Count 171 (150-450) x10^3/uL MPV 9.0 (7.5-11.0) fL Gran % 78.5 H (36.0-66.0) % Immature Gran % (Auto) 0.3 (0.00-0.4) % Nucleat RBC Rel Count 0.0 (0.00-0.1) % Eos # (Auto) 0.01 (0-0.5) x10^3/uL Immature Gran # (Auto) 0.04 H (0.00-0.03) x10^3u/L Absolute Lymphs (auto) 1.75 (1.0-4.6) x10^3/uL Absolute Monos (auto) 0.93 (0.0-1.3) x10^3/uL Absolute Nucleated RBC 0.00 (0.00-0.01) x10^3u/L Lymphocytes % 13.4 L (24.0-44.0) % Monocytes % 7.1 (0.0-12.0) % Eosinophils % 0.1 (0.00-5.0) % Basophils % 0.6 (0.0-0.4) % Absolute Granulocytes 10.22 H (1.4-6.9) x10^3/uL Basophils # 0.08 (0-0.4) x10^3/uL Sodium 135 L (137-145) mmol/L Potassium 4.5 (3.5-5.1) mmol/L Chloride 98 (98-107) mmol/L Carbon Dioxide 19 L (22-30) mmol/L Anion Gap 22.0 H (5-15) MEQ/L BUN 22 H (9-20) mg/dL Creatinine 1.02 (0.66-1.25) mg/dL Estimated GFR 70.7 ML/MIN Glucose 191 H (74-106) mg/dL Calcium 8.8 (8.4-10.2) mg/dL Magnesium 2.2 (1.6-2.3) mg/dL Total Bilirubin 1.00 (0.2-1.3) mg/dL AST 31 (17-59) U/L ALT 17 (0-50) U/L Alkaline Phosphatase 75 (38-126) U/L Troponin I 0.015 (0.000-0.034) ng/mL Serum Total Protein 6.9 (6.3-8.2) g/dL Albumin 4.0 (3.5-5.0) g/dL Urine Color (Yellow) Urine Appearance (Clear) Urine pH (4.6-8.0) Ur Specific Hundred (1.005-1.030) Urine Protein (Negative) Urine Glucose (UA) (Negative) mg/dL Urine Ketones (Negative) Urine Blood (Negative) Urine Nitrite (Negative) Urine Bilirubin (Negative) Urine Urobilinogen (0.2) mg/dL Ur Leukocyte Esterase (Negative) U Hyaline Cast (Auto) (0-2) /LPF Urine Microscopic RBC (0-5) /HPF Urine Microscopic WBC (0-5) /HPF Ur Epithelial Cells (None Seen) /HPF Urine Bacteria (None Seen) /HPF Urine Culture Reflexed (NO) Digoxin (0.8-1.9) ng/mL Influenza Type A Ag (NEGATIVE) Influenza Type B Ag (NEGATIVE) RSV (PCR) (NEGATIVE) SARS-CoV-2 (PCR) (NEGATIVE) 1205/16/23 05/16/23 Range/Units 09:55 09:55 13:10 WBC (4.0-10.5) x10^3/uL RBC (4.1-5.6) x10^6/uL Hgb (12.5-18.0) g/dL Hct (42-50) % MCV (78-100) fL MCH (26-32) pg MCHC (32-36) g/dL RDW (11.5-14.0) % Plt Count (150-450) x10^3/uL MPV (7.5-11.0) fL Gran % (36.0-66.0) % Immature Gran % (Auto) (0.00-0.4) % Nucleat RBC Rel Count (0.00-0.1) % Eos # (Auto) (0-0.5) x10^3/uL Immature Gran # (Auto) (0.00-0.03) x10^3u/L Absolute Lymphs (auto) (1.0-4.6) x10^3/uL Absolute Monos (auto) (0.0-1.3) x10^3/uL Absolute Nucleated RBC (0.00-0.01) x10^3u/L Lymphocytes % (24.0-44.0) % Monocytes % (0.0-12.0) % Eosinophils % (0.00-5.0) % Basophils % (0.0-0.4) % Absolute Granulocytes (1.4-6.9) x10^3/uL Basophils # (0-0.4) x10^3/uL Sodium (137-145) mmol/L Potassium (3.5-5.1) mmol/L Chloride (98-107) mmol/L Carbon Dioxide (22-30) mmol/L Anion Gap (5-15) MEQ/L BUN (9-20) mg/dL Creatinine (0.66-1.25) mg/dL Estimated GFR ML/MIN Glucose (74-106) mg/dL Calcium (8.4-10.2) mg/dL Magnesium (1.6-2.3) mg/dL Total Bilirubin (0.2-1.3) mg/dL AST (17-59) U/L ALT (0-50) U/L Alkaline Phosphatase (38-126) U/L Troponin I 0.012 (0.000-0.034) ng/mL Serum Total Protein (6.3-8.2) g/dL Albumin (3.5-5.0) g/dL Urine Color (Yellow) Urine Appearance (Clear) Urine pH (4.6-8.0) Ur Specific Hundred (1.005-1.030) Urine Protein (Negative) Urine Glucose (UA) (Negative) mg/dL Urine Ketones (Negative) Urine Blood (Negative) Urine Nitrite (Negative) Urine Bilirubin (Negative) Urine Urobilinogen (0.2) mg/dL Ur Leukocyte Esterase (Negative) U Hyaline Cast (Auto) (0-2) /LPF Urine Microscopic RBC (0-5) /HPF Urine Microscopic WBC (0-5) /HPF Ur Epithelial Cells (None Seen) /HPF Urine Bacteria (None Seen) /HPF Urine Culture Reflexed (NO) Digoxin 0.6 L (0.8-1.9) ng/mL Influenza Type A Ag NEGATIVE (NEGATIVE) Influenza Type B Ag NEGATIVE (NEGATIVE) RSV (PCR) NEGATIVE (NEGATIVE) SARS-CoV-2 (PCR) POSITIVE A (NEGATIVE) 05/16/23 05/16/23 Range/Units 14:52 16:55 WBC (4.0-10.5) x10^3/uL RBC (4.1-5.6) x10^6/uL Hgb (12.5-18.0) g/dL Hct (42-50) % MCV (78-100) fL MCH (26-32) pg MCHC (32-36) g/dL RDW (11.5-14.0) % Plt Count (150-450) x10^3/uL MPV (7.5-11.0) fL Gran % (36.0-66.0) % Immature Gran % (Auto) (0.00-0.4) % Nucleat RBC Rel Count (0.00-0.1) % Eos # (Auto) (0-0.5) x10^3/uL Immature Gran # (Auto) (0.00-0.03) x10^3u/L Absolute Lymphs (auto) (1.0-4.6) x10^3/uL Absolute Monos (auto) (0.0-1.3) x10^3/uL Absolute Nucleated RBC (0.00-0.01) x10^3u/L Lymphocytes % (24.0-44.0) % Monocytes % (0.0-12.0) % Eosinophils % (0.00-5.0) % Basophils % (0.0-0.4) % Absolute Granulocytes (1.4-6.9) x10^3/uL Basophils # (0-0.4) x10^3/uL Sodium (137-145) mmol/L Potassium (3.5-5.1) mmol/L Chloride (98-107) mmol/L Carbon Dioxide (22-30) mmol/L Anion Gap (5-15) MEQ/L BUN (9-20) mg/dL Creatinine (0.66-1.25) mg/dL Estimated GFR ML/MIN Glucose (74-106) mg/dL Calcium (8.4-10.2) mg/dL Magnesium (1.6-2.3) mg/dL Total Bilirubin (0.2-1.3) mg/dL AST (17-59) U/L ALT (0-50) U/L Alkaline Phosphatase (38-126) U/L Troponin I < 0.012 (0.000-0.034) ng/mL Serum Total Protein (6.3-8.2) g/dL Albumin (3.5-5.0) g/dL Urine Color Yellow (Yellow) Urine Appearance Clear (Clear) Urine pH 5.0 (4.6-8.0) Ur Specific Hundred >=1.030 A (1.005-1.030) Urine Protein Negative (Negative) Urine Glucose (UA) >=1000 A (Negative) mg/dL Urine Ketones >=160 A (Negative) Urine Blood Negative (Negative) Urine Nitrite Negative (Negative) Urine Bilirubin Negative (Negative) Urine Urobilinogen 0.2 (0.2) mg/dL Ur Leukocyte Esterase Negative (Negative) U Hyaline Cast (Auto) NONE SEEN (0-2) /LPF Urine Microscopic RBC 0-2 (0-5) /HPF Urine Microscopic WBC 0-2 (0-5) /HPF Ur Epithelial Cells None Seen (None Seen) /HPF Urine Bacteria None Seen (None Seen) /HPF Urine Culture Reflexed NO (NO) Digoxin (0.8-1.9) ng/mL Influenza Type A Ag (NEGATIVE) Influenza Type B Ag (NEGATIVE) RSV (PCR) (NEGATIVE) SARS-CoV-2 (PCR) (NEGATIVE) - Radiology Impressions Radiology Exams & Impressions: Radiology Procedures Category Date Time Status CHEST 1 VIEW (PORTABLE) Stat Exams 05/16/23 12:23 Completed HEAD WITHOUT CONTRAST [CT] Stat Exams 05/16/23 11:04 Completed Assessment/Plan (1) COVID-19 Current Visit: Yes Status: Acute Assessment & Plan: -CXR demonstrating minimal left base subsegmental atelectasis/scarring and a few tiny bilateral calcified granulomas. Remaining heart and lungs unremarkable. -Patient on RA with spo2 @ 98% -Supplemental oxygen with goal >92% -no pmhx of asthma/copd or hypoxia, no need for remdesivir/decadron, will start paxlovid -supportive therapies Code(s): U07.1 - COVID-19 (2) Dizziness Current Visit: Yes Status: Acute Assessment & Plan: -CT of head demonstrating a nonacute senile brain with remote lacunar infarct right basal ganglia, will order MRI -ECHO -Carotid duplex -orthostatic vitals -Will review med list for offending agents once med rec complete -PT/OT -TSH, B12 -Gentle hydration Code(s): R42 - DIZZINESS AND GIDDINESS (3) Frequent falls Current Visit: Yes Status: Acute Assessment & Plan: -see dizziness Code(s): R29.6 - REPEATED FALLS (4) Leukocytosis Current Visit: Yes Status: Acute Assessment & Plan: -May be reactive vs infectious process -Recent tooth infection -UA negative -CXR negative -LA, PCT Code(s): D72.829 - ELEVATED WHITE BLOOD CELL COUNT, UNSPECIFIED (5) Hypertension Current Visit: Yes Status: Acute Assessment & Plan: -stable, some hypotensive episodes in ED, will hold bp meds for now, will continue to monitor Code(s): I10 - ESSENTIAL (PRIMARY) HYPERTENSION (6) High anion gap metabolic acidosis Current Visit: Yes Status: Acute Assessment & Plan: -May be secondary to COVID/dehydration/infection -Urinalysis with ketones/glucose, of note patient is on jardiance Code(s): E87.29 - OTHER ACIDOSIS (7) Hyponatremia Current Visit: Yes Status: Acute Assessment & Plan: -mild, will continue gentle hydration, recheck in the a.m Code(s): E87.1 - HYPO-OSMOLALITY AND HYPONATREMIA (8) CAD (coronary artery disease) Current Visit: No Status: Acute Assessment & Plan: -noted, adds complexity, continue home meds Code(s): I25.10 - ATHSCL HEART DISEASE OF [place] CORONARY ARTERY W/O ANG PCTRS (9) Diabetes mellitus Current Visit: No Status: Chronic Qualifiers: Assessment & Plan: -Most recent A1d in 01/09/23 at 8.28, will redraw -SSI with moderate dosing during hospitalization -ADA diet Code(s): E11.9 - TYPE 2 DIABETES MELLITUS WITHOUT COMPLICATIONS
[2023-05-16] MEDS ORDERED: TYLENOL 325 MG PO PRN (17:49)
[2023-05-16] MEDS ORDERED: Zofran 4 MG/2 ML VIAL IV PRN (17:49)
[2023-05-16] MEDS ORDERED: VENTOLIN COMMON CANISTER IH PRN (18:29)
[2023-05-16 19:18] LABS: PROCALCITONIN 0.286 ng/mL (0.030-0.080); TSH, 3RD Generation 0.175 mIU/L (0.47-4.68)
[2023-05-16] MEDS ORDERED: NON-FORMULARY ITEM (Dulaglutide [Trulicity] 3 MG/0.5 ML Pen.Injctr) SQ SCH (21:15)
[2023-05-16] MEDS ORDERED: GLIPIZIDE PO SCH (22:00)
[2023-05-16] MEDS ORDERED: METFORMIN HCL PO SCH (22:00)
[2023-05-16] MEDS ORDERED: [UNRECOGNIZED DRUG - OTHER] PO SCH (22:00)
[2023-05-16] MEDS ORDERED: AMOXICILLIN 500 MG PO SCH (22:00)
[2023-05-16] MEDS ORDERED: MELATONIN PO PRN (22:43)
[2023-05-16] MEDS ORDERED: AMOXIL 500 MG ONE (22:50)
[2023-05-16] MEDS ORDERED: MYRBETRIQ PO ONE (22:51)
[2023-05-16] MEDS: NON-FORMULARY ITEM (Mirabegron [Myrbetriq] 50 MG Tab.Er.24h) PO SCH (23:55)
[2023-05-16] MEDS: Coreg 3.125 MG PO SCH (23:55)
[2023-05-16] MEDS: PAXLOVID 300-100 MG PACK (EUA) PO SCH (23:56)
[2023-05-16] MEDS: HUMALOG SQ PRN (23:57)
[2023-05-17] MEDS: NON-FORMULARY ITEM (Mirabegron [Myrbetriq] 50 MG Tab.Er.24h) PO SCH (00:14)
[2023-05-17] MEDS: NEURONTIN PO SCH ×4 (00:24→22:20)
[2023-05-17 05:07] LABS: BASOPHIL % 0.6 % (0.0-0.4); Basophil (Absolute #) 0.08 x10^3/uL (0-0.4); Eosinophil % 0.3 % (0.00-5.0); Eosinophil (Absolute #) 0.04 x10^3/uL (0-0.5); Hematocrit 43.7 % (42-50); Hemoglobin 14.1 g/dL (12.5-18.0); IMMATURE GRAN # 0.06 x10^3u/L (0.00-0.03); IMMATURE GRAN % 0.5 % (0.00-0.4); Lymphocytes % 15.1 % (24.0-44.0); Mean Cell Volume 100.5 fL (78-100); Mean Corpuscular Hemoglobin 32.4 pg (26-32); Mean Corpuscular Hgb Concent. 32.3 g/dL (32-36); Monocyte (Absolute #) 1.07 x10^3/uL (0.0-1.3); Monocytes % 8.5 % (0.0-12.0); Platelet Count 183 x10^3/uL (150-450); Red Blood Count 4.35 x10^6/uL (4.1-5.6); Red Cell Distribution Width 13.2 % (11.5-14.0); White Blood Count 12.6 x10^3/uL (4.0-10.5)
[2023-05-17 05:19] LABS: ALBUMIN 3.7 g/dL (3.5-5.0); ANION GAP 13.4 MEQ/L (5-15); BILIRUBIN,TOTAL 0.8 mg/dL (0.2-1.3); Calcium 8.4 mg/dL (8.4-10.2); Creatinine 1 0.95 mg/dL (0.66-1.25); MAGNESIUM 2.3 mg/dL (1.6-2.3); Potassium 4.4 mmol/L (3.5-5.1); Total Protein 6.6 g/dL (6.3-8.2)
--- NOTE | 2023-05-17 05:20 | PCM.NOTE ---
Date and Time: 05/17/23 0519 Subjective Assessment: History of Present Illness: is a 87 year old male with a pmhx of DM, and CAD with stents who pre sented to ED with complaints of dizziness, unsteady gait, and multiple falls over the past two days. Prior to his fall he states his felt dizzy when standing, fumbled a bit and felt like his legs got weak and he fell down. He reports that the dizziness occurs mostly when he is changing positions. No "room spinning" sensation. No syncopal episodes or LOC or disorientation. No false/distorted sensation of self motion in any direction. Patient reports that he has a tooth infection which he is taking amoxicillin for. He has also developed a non-productive cough. Upon exam BUE/BLE noted with 5/5 strength. Denies fever,sob, cp, abdominal pain, ZULETA, N/V/D. Denies recent sick contacts. Upon arrival vitals were unremarkable. CT head demonstrating a nonacute senile brain with remote lacunar infarct right basal ganglia. CXR negative for cardiopulmonary process. Lab findings remarkable for leukocytosis with WBC at 13, MCV 100.9, sodium mildly low at 135, anion gap 22, co2 at 19, and BUN at 22. COVID 19 positive. Initial troponins negative. Patient admitted with weakness and falls. He reports cough but no fever, dyspnea etc. He is positive for COVID. WBC is elevated. He has a metabolic acidosis which is likely due to infection. He is oxygenating well and has no infiltrates on Cxray. At this point does not seem to need steroids or Decadron. Will evaluate for falls but likely due to infection as well. May need rehab on discharge. MRI demonstrating normal aging brain including atrophy and degenerative micro-ischemia. Remote lacunar infarct right basal ganglia. Carotid US with Mild right and minimal left arteriosclerotic plaquing. Velocity measurements and ratios are negative for hemodynamically significant flow-limiting stenosis. 05/17/23: Patient up in chair. He is oxygenating well on RA. No overnight events noted. Endorses cough and sore throat. Denies fever,sob, cp, abdominal pain, ZULETA, d izziness, N/V/D. Patient has started paxlovid. - Review of Systems Constitutional: No Symptoms Eyes: No Symptoms Ears, Nose, & Throat: Nose Congestion, Throat Pain Respiratory: Cough Cardiac: No Symptoms Abdominal/Gastrointestinal: No Symptoms Genitourinary Symptoms: No Symptoms Musculoskeletal: No Symptoms Skin: No Symptoms Neurological: No Symptoms Psychological: No Symptoms Endocrine: No Symptoms Hematologic/Lymphatic: No Symptoms Immunological/Allergic: No Symptoms Objective Exam General Appearance: no apparent distress Neurologic Exam: alert, oriented x 3, cooperative Skin Exam: pale Eye Exam: PERRL Ears, Nose, Throat Exam: normal ENT inspection Respiratory Exam: normal breath sounds, lungs clear Cardiovascular Exam: regular rate/rhythm, normal heart sounds Gastrointestinal/Abdomen Exam: soft, normal bowel sounds Extremity Exam: normal inspection Back Exam: normal inspection OBJECTIVE DATA Vital Signs: Vital Signs - 24 hr Temp Pulse Resp BP BP Pulse Ox 05/17/23 03:58 92 H 20 96 05/17/23 00:00 97.5 F 99 H 13 146/79 99 05/16/23 20:00 97.3 F 97 H 21 109/69 98 05/16/23 18:30 95 05/16/23 18:29 97.8 F 86 20 111/72 95 05/16/23 17:49 86 20 95 05/16/23 17:15 94 H 22 114/75 94 L 05/16/23 17:01 94 H 25 H 125/74 94 L 05/16/23 16:45 88 14 98/67 100 05/16/23 16:30 94 H 20 109/68 95 05/16/23 16:15 94 H 25 H 98/61 94 L 05/16/23 16:00 95 H 17 102/64 95 05/16/23 15:45 96 H 19 101/66 94 L 05/16/23 15:30 89 20 105/66 94 L 05/16/23 15:15 98 H 20 92/62 94 L 05/16/23 15:00 95 H 20 105/67 95 05/16/23 14:59 88 20 95 05/16/23 14:52 101 H 21 95 05/16/23 14:30 113/69 05/16/23 14:15 95 H 18 102/65 96 05/16/23 14:00 94 H 19 99/71 93 L 05/16/23 13:46 96 05/16/23 13:45 94 H 18 109/65 95 05/16/23 13:30 83 20 119/77 92 L 05/16/23 13:15 96 H 17 107/68 96 05/16/23 13:00 94 H 20 125/74 94 L 05/16/23 12:45 88 20 103/76 96 05/16/23 12:30 96 H 19 134/74 97 05/16/23 12:15 96 H 20 109/72 94 L 05/16/23 12:00 90 19 110/70 94 L 05/16/23 11:45 98 H 21 118/70 94 L 05/16/23 11:30 97 H 20 120/71 93 L 05/16/23 11:15 96 H 18 123/76 93 L 05/16/23 11:14 97 H 19 95 05/16/23 11:11 95 05/16/23 10:45 118/73 05/16/23 10:30 94 H 20 111/68 05/16/23 10:15 88 19 126/69 05/16/23 10:01 88 21 129/75 05/16/23 09:55 96 05/16/23 09:45 89 24 123/78 97 05/16/23 09:30 95 H 21 120/70 94 L 05/16/23 09:15 97.8 F 98 H 13 111/72 111/72 95 Pain Assessment - Last Documented Pain Intensity 0 Intake and Output: Intake & Output 05/14/23 05/15/23 05/16/23 05/17/23 11:59 11:59 11:59 11:59 Intake Total 440 Balance 440 Weight 84.3 kg 84.3 kg Lab Results: Lab Results-Last 24 Hours 05/16/23 05/16/23 05/16/23 Range/Units 09:55 09:55 09:55 WBC 13.0 H (4.0-10.5) x10^3/uL RBC 4.54 (4.1-5.6) x10^6/uL Hgb 14.9 (12.5-18.0) g/dL Hct 45.8 (42-50) % MCV 100.9 H (78-100) fL MCH 32.8 H (26-32) pg MCHC 32.5 (32-36) g/dL RDW 13.2 (11.5-14.0) % Plt Count 171 (150-450) x10^3/uL MPV 9.0 (7.5-11.0) fL Gran % 78.5 H (36.0-66.0) % Immature Gran % (Auto) 0.3 (0.00-0.4) % Nucleat RBC Rel Count 0.0 (0.00-0.1) % Eos # (Auto) 0.01 (0-0.5) x10^3/uL Immature Gran # (Auto) 0.04 H (0.00-0.03) x10^3u/L Absolute Lymphs (auto) 1.75 (1.0-4.6) x10^3/uL Absolute Monos (auto) 0.93 (0.0-1.3) x10^3/uL Absolute Nucleated RBC 0.00 (0.00-0.01) x10^3u/L Lymphocytes % 13.4 L (24.0-44.0) % Monocytes % 7.1 (0.0-12.0) % Eosinophils % 0.1 (0.00-5.0) % Basophils % 0.6 (0.0-0.4) % Absolute Granulocytes 10.22 H (1.4-6.9) x10^3/uL Basophils # 0.08 (0-0.4) x10^3/uL Sodium 135 L (137-145) mmol/L Potassium 4.5 (3.5-5.1) mmol/L Chloride 98 (98-107) mmol/L Carbon Dioxide 19 L (22-30) mmol/L Anion Gap 22.0 H (5-15) MEQ/L BUN 22 H (9-20) mg/dL Creatinine 1.02 (0.66-1.25) mg/dL Estimated GFR 70.7 ML/MIN Glucose 191 H (74-106) mg/dL POC Glucometer (74 to 106) mg/dL Lactic Acid (0.4-2.0) Calcium 8.8 (8.4-10.2) mg/dL Magnesium 2.2 (1.6-2.3) mg/dL Total Bilirubin 1.00 (0.2-1.3) mg/dL AST 31 (17-59) U/L ALT 17 (0-50) U/L Alkaline Phosphatase 75 (38-126) U/L Troponin I 0.015 (0.000-0.034) ng/mL Serum Total Protein 6.9 (6.3-8.2) g/dL Albumin 4.0 (3.5-5.0) g/dL Vitamin B12 (239-931) pg/mL Procalcitonin (0.030-0.080) ng/mL TSH 3rd Generation (0.47-4.68) mIU/L Urine Color (Yellow) Urine Appearance (Clear) Urine pH (4.6-8.0) Ur Specific [place] (1.005-1.030) Urine Protein (Negative) Urine Glucose (UA) (Negative) mg/dL Urine Ketones (Negative) Urine Blood (Negative) Urine Nitrite (Negative) Urine Bilirubin (Negative) Urine Urobilinogen (0.2) mg/dL Ur Leukocyte Esterase (Negative) U Hyaline Cast (Auto) (0-2) /LPF Urine Microscopic RBC (0-5) /HPF Urine Microscopic WBC (0-5) /HPF Ur Epithelial Cells (None Seen) /HPF Urine Bacteria (None Seen) /HPF Urine Culture Reflexed (NO) Digoxin (0.8-1.9) ng/mL Influenza Type A Ag (NEGATIVE) Influenza Type B Ag (NEGATIVE) RSV (PCR) (NEGATIVE) SARS-CoV-2 (PCR) (NEGATIVE) 05/16/23 05/16/23 05/16/23 Range/Units 09:55 09:55 13:10 WBC (4.0-10.5) x10^3/uL RBC (4.1-5.6) x10^6/uL Hgb (12.5-18.0) g/dL Hct (42-50) % MCV (78-100) fL MCH (26-32) pg MCHC (32-36) g/dL RDW (11.5-14.0) % Plt Count (150-450) x10^3/uL MPV (7.5-11.0) fL Gran % (36.0-66.0) % Immature Gran % (Auto) (0.00-0.4) % Nucleat RBC Rel Count (0.00-0.1) % Eos # (Auto) (0-0.5) x10^3/uL Immature Gran # (Auto) (0.00-0.03) x10^3u/L Absolute Lymphs (auto) (1.0-4.6) x10^3/uL Absolute Monos (auto) (0.0-1.3) x10^3/uL Absolute Nucleated RBC (0.00-0.01) x10^3u/L Lymphocytes % (24.0-44.0) % Monocytes % (0.0-12.0) % Eosinophils % (0.00-5.0) % Basophils % (0.0-0.4) % Absolute Granulocytes (1.4-6.9) x10^3/uL Basophils # (0-0.4) x10^3/uL Sodium (137-145) mmol/L Potassium (3.5-5.1) mmol/L Chloride (98-107) mmol/L Carbon Dioxide (22-30) mmol/L Anion Gap (5-15) MEQ/L BUN (9-20) mg/dL Creatinine (0.66-1.25) mg/dL Estimated GFR ML/MIN Glucose (74-106) mg/dL POC Glucometer (74 to 106) mg/dL Lactic Acid (0.4-2.0) Calcium (8.4-10.2) mg/dL Magnesium (1.6-2.3) mg/dL Total Bilirubin (0.2-1.3) mg/dL AST (17-59) U/L ALT (0-50) U/L Alkaline Phosphatase (38-126) U/L Troponin I 0.012 (0.000-0.034) ng/mL Serum Total Protein (6.3-8.2) g/dL Albumin (3.5-5.0) g/dL Vitamin B12 (239-931) pg/mL Procalcitonin (0.030-0.080) ng/mL TSH 3rd Generation (0.47-4.68) mIU/L Urine Color (Yellow) Urine Appearance (Clear) Urine pH (4.6-8.0) Ur Specific [place] (1.005-1.030) Urine Protein (Negative) Urine Glucose (UA) (Negative) mg/dL Urine Ketones (Negative) Urine Blood (Negative) Urine Nitrite (Negative) Urine Bilirubin (Negative) Urine Urobilinogen (0.2) mg/dL Ur Leukocyte Esterase (Negative) U Hyaline Cast (Auto) (0-2) /LPF Urine Microscopic RBC (0-5) /HPF Urine Microscopic WBC (0-5) /HPF Ur Epithelial Cells (None Seen) /HPF Urine Bacteria (None Seen) /HPF Urine Culture Reflexed (NO) Digoxin 0.6 L (0.8-1.9) ng/mL Influenza Type A Ag NEGATIVE (NEGATIVE) Influenza Type B Ag NEGATIVE (NEGATIVE) RSV (PCR) NEGATIVE (NEGATIVE) SARS-CoV-2 (PCR) POSITIVE A (NEGATIVE) 05/16/23 05/16/23 05/16/23 Range/Units 14:52 16:55 16:55 WBC (4.0-10.5) x10^3/uL RBC (4.1-5.6) x10^6/uL Hgb (12.5-18.0) g/dL Hct (42-50) % MCV (78-100) fL MCH (26-32) pg MCHC (32-36) g/dL RDW (11.5-14.0) % Plt Count (150-450) x10^3/uL MPV (7.5-11.0) fL Gran % (36.0-66.0) % Immature Gran % (Auto) (0.00-0.4) % Nucleat RBC Rel Count (0.00-0.1) % Eos # (Auto) (0-0.5) x10^3/uL Immature Gran # (Auto) (0.00-0.03) x10^3u/L Absolute Lymphs (auto) (1.0-4.6) x10^3/uL Absolute Monos (auto) (0.0-1.3) x10^3/uL Absolute Nucleated RBC (0.00-0.01) x10^3u/L Lymphocytes % (24.0-44.0) % Monocytes % (0.0-12.0) % Eosinophils % (0.00-5.0) % Basophils % (0.0-0.4) % Absolute Granulocytes (1.4-6.9) x10^3/uL Basophils # (0-0.4) x10^3/uL Sodium (137-145) mmol/L Potassium (3.5-5.1) mmol/L Chloride (98-107) mmol/L Carbon Dioxide (22-30) mmol/L Anion Gap (5-15) MEQ/L BUN (9-20) mg/dL Creatinine (0.66-1.25) mg/dL Estimated GFR ML/MIN Glucose (74-106) mg/dL POC Glucometer (74 to 106) mg/dL Lactic Acid (0.4-2.0) Calcium (8.4-10.2) mg/dL Magnesium (1.6-2.3) mg/dL Total Bilirubin (0.2-1.3) mg/dL AST (17-59) U/L ALT (0-50) U/L Alkaline Phosphatase (38-126) U/L Troponin I < 0.012 (0.000-0.034) ng/mL Serum Total Protein (6.3-8.2) g/dL Albumin (3.5-5.0) g/dL Vitamin B12 288 (239-931) pg/mL Procalcitonin 0.286 H (0.030-0.080) ng/mL TSH 3rd Generation 0.175 L (0.47-4.68) mIU/L Urine Color Yellow (Yellow) Urine Appearance Clear (Clear) Urine pH 5.0 (4.6-8.0) Ur Specific [place] >=1.030 A (1.005-1.030) Urine Protein Negative (Negative) Urine Glucose (UA) >=1000 A (Negative) mg/dL Urine Ketones >=160 A (Negative) Urine Blood Negative (Negative) Urine Nitrite Negative (Negative) Urine Bilirubin Negative (Negative) Urine Urobilinogen 0.2 (0.2) mg/dL Ur Leukocyte Esterase Negative (Negative) U Hyaline Cast (Auto) NONE SEEN (0-2) /LPF Urine Microscopic RBC 0-2 (0-5) /HPF Urine Microscopic WBC 0-2 (0-5) /HPF Ur Epithelial Cells None Seen (None Seen) /HPF Urine Bacteria None Seen (None Seen) /HPF Urine Culture Reflexed NO (NO) Digoxin (0.8-1.9) ng/mL Influenza Type A Ag (NEGATIVE) Influenza Type B Ag (NEGATIVE) RSV (PCR) (NEGATIVE) SARS-CoV-2 (PCR) (NEGATIVE) 12/12/23 12/12/23 12/13/23 Range/Units 18:23 20:47 04:59 WBC 12.6 H (4.0-10.5) x10^3/uL RBC 4.35 (4.1-5.6) x10^6/uL Hgb 14.1 (12.5-18.0) g/dL Hct 43.7 (42-50) % MCV 100.5 H (78-100) fL MCH 32.4 H (26-32) pg MCHC 32.3 (32-36) g/dL RDW 13.2 (11.5-14.0) % Plt Count 183 (150-450) x10^3/uL MPV 9.0 (7.5-11.0) fL Gran % 75.0 H (36.0-66.0) % Immature Gran % (Auto) 0.5 H (0.00-0.4) % Nucleat RBC Rel Count 0.0 (0.00-0.1) % Eos # (Auto) 0.04 (0-0.5) x10^3/uL Immature Gran # (Auto) 0.06 H (0.00-0.03) x10^3u/L Absolute Lymphs (auto) 1.90 (1.0-4.6) x10^3/uL Absolute Monos (auto) 1.07 (0.0-1.3) x10^3/uL Absolute Nucleated RBC 0.00 (0.00-0.01) x10^3u/L Lymphocytes % 15.1 L (24.0-44.0) % Monocytes % 8.5 (0.0-12.0) % Eosinophils % 0.3 (0.00-5.0) % Basophils % 0.6 (0.0-0.4) % Absolute Granulocytes 9.40 H (1.4-6.9) x10^3/uL Basophils # 0.08 (0-0.4) x10^3/uL Sodium (137-145) mmol/L Potassium (3.5-5.1) mmol/L Chloride (98-107) mmol/L Carbon Dioxide (22-30) mmol/L Anion Gap (5-15) MEQ/L BUN (9-20) mg/dL Creatinine (0.66-1.25) mg/dL Estimated GFR ML/MIN Glucose (74-106) mg/dL POC Glucometer 232 H (74 to 106) mg/dL Lactic Acid 1.9 (0.4-2.0) Calcium (8.4-10.2) mg/dL Magnesium (1.6-2.3) mg/dL Total Bilirubin (0.2-1.3) mg/dL AST (17-59) U/L ALT (0-50) U/L Alkaline Phosphatase (38-126) U/L Troponin I (0.000-0.034) ng/mL Serum Total Protein (6.3-8.2) g/dL Albumin (3.5-5.0) g/dL Vitamin B12 (239-931) pg/mL Procalcitonin (0.030-0.080) ng/mL TSH 3rd Generation (0.47-4.68) mIU/L Urine Color (Yellow) Urine Appearance (Clear) Urine pH (4.6-8.0) Ur Specific [place] (1.005-1.030) Urine Protein (Negative) Urine Glucose (UA) (Negative) mg/dL Urine Ketones (Negative) Urine Blood (Negative) Urine Nitrite (Negative) Urine Bilirubin (Negative) Urine Urobilinogen (0.2) mg/dL Ur Leukocyte Esterase (Negative) U Hyaline Cast (Auto) (0-2) /LPF Urine Microscopic RBC (0-5) /HPF Urine Microscopic WBC (0-5) /HPF Ur Epithelial Cells (None Seen) /HPF Urine Bacteria (None Seen) /HPF Urine Culture Reflexed (NO) Digoxin (0.8-1.9) ng/mL Influenza Type A Ag (NEGATIVE) Influenza Type B Ag (NEGATIVE) RSV (PCR) (NEGATIVE) SARS-CoV-2 (PCR) (NEGATIVE) Radiology Exams: Radiology Procedures Category Date Time Status CAROTID BILATERAL [US] Routine Exams 05/17/23 08:00 Ordered CHEST 1 VIEW (PORTABLE) Stat Exams 05/16/23 12:23 Completed ECHO W/2D AND DOPPLER [US] Routine Exams 05/17/23 08:00 Ordered HEAD WITHOUT CONTRAST [CT] Stat Exams 05/16/23 11:04 Completed MRI BRAIN W/O CONTRAST [MRI] Routine Exams 05/17/23 08:00 Ordered Assessment/Plan (1) COVID-19 Current Visit: Yes Status: Acute Assessment & Plan: -CXR demonstrating minimal left base subsegmental atelectasis/scarring and a few tiny bilateral calcified granulomas. Remaining heart and lungs unremarkable. -Patient on RA with spo2 @ 98% -Supplemental oxygen with goal >92% -no pmhx of asthma/copd or hypoxia, no need for remdesivir/decadron, will start paxlovid -supportive therapies Code(s): U07.1 - COVID-19 (2) Dizziness Current Visit: Yes Status: Acute Assessment & Plan: -CT of head demonstrating a nonacute senile brain with remote lacunar infarct right basal ganglia, will order MRI -ECHO -Carotid duplex -orthostatic vitals -Will review med list for offending agents once med rec complete -PT/OT -TSH, B12 -Gentle hydration 05/17: -Carotid US showing Mild right and minimal left arteriosclerotic plaquing as detailed. Velocity measurements and ratios are negative for hemodynamically significant flow-limiting stenosis. -MRI brain showing . Normal aging brain including atrophy and degenerative micro-ischemia. Remote lacunar infarct right basal ganglia. -TSH level low, will repeat in the morning with ft4, tt3 Code(s): R42 - DIZZINESS AND GIDDINESS (3) Frequent falls Current Visit: Yes Status: Acute Assessment & Plan: -see dizziness Code(s): R29.6 - REPEATED FALLS (4) Leukocytosis Current Visit: Yes Status: Acute Assessment & Plan: -May be reactive vs infectious process -Recent tooth infection -UA negative -CXR negative -LA, PCT 05/17: -Continue home meds for tooth infection amoxil Code(s): D72.829 - ELEVATED WHITE BLOOD CELL COUNT, UNSPECIFIED (5) Hypertension Current Visit: Yes Status: Acute Assessment & Plan: -stable, some hypotensive episodes in ED, will hold bp meds for now, will continue to monitor Code(s): I10 - ESSENTIAL (PRIMARY) HYPERTENSION (6) High anion gap metabolic acidosis Current Visit: Yes Status: Acute Assessment & Plan: -May be secondary to COVID/dehydration/infection -Urinalysis with ketones/glucose, of note patient is on jardiance 05/17: -Gap closed, will continue to monitor Code(s): E87.29 - OTHER ACIDOSIS (7) Hyponatremia Current Visit: Yes Status: Acute Assessment & Plan: -mild, will continue gentle hydration, recheck in the a.m 05/17: -Increase fluids, will continue to monitor Code(s): E87.1 - HYPO-OSMOLALITY AND HYPONATREMIA (8) CAD (coronary artery disease) Current Visit: No Status: Acute Assessment & Plan: -noted, adds complexity, continue home meds Code(s): I25.10 - ATHSCL HEART DISEASE OF [place] CORONARY ARTERY W/O ANG PCTRS (9) Diabetes mellitus Current Visit: No Status: Chronic Qualifiers: Assessment & Plan: -Most recent A1c in 01/09/23 at 8.28, will redraw -SSI with low dosing during hospitalization, resume home meds -ADA diet Code(s): U07.1 - COVID-19 (2) Dizziness Current Visit: Yes Status: Acute Code(s): R42 - DIZZINESS AND GIDDINESS (3) Frequent falls Current Visit: Yes Status: Acute Code(s): R29.6 - REPEATED FALLS (4) Leukocytosis Current Visit: Yes Status: Acute Code(s): D72.829 - ELEVATED WHITE BLOOD CELL COUNT, UNSPECIFIED (5) Hypertension Current Visit: Yes Status: Acute Code(s): I10 - ESSENTIAL (PRIMARY) HYPERTENSION (6) High anion gap metabolic acidosis Current Visit: Yes Status: Acute Code(s): E87.29 - OTHER ACIDOSIS (7) Hyponatremia Current Visit: Yes Status: Acute Code(s): E87.1 - HYPO-OSMOLALITY AND HYPONATREMIA (8) CAD (coronary artery disease) Current Visit: No Status: Acute Code(s): I25.10 - ATHSCL HEART DISEASE OF [place] CORONARY ARTERY W/O ANG PCTRS (9) Diabetes mellitus Current Visit: No Status: Chronic Qualifiers: Code(s): E11.9 - TYPE 2 DIABETES MELLITUS WITHOUT COMPLICATIONS
[2023-05-17] MEDS ORDERED: MEDICATION INTERVENTION MC SCH (07:30)
[2023-05-17] MEDS: Lantus Insulin SQ SCH (08:28)
[2023-05-17] MEDS: Coreg 3.125 MG PO SCH ×2 (08:29→22:20)
[2023-05-17] MEDS: Lanoxin 0.125MG TABLET PO SCH (08:31)
[2023-05-17] MEDS: ECOTRIN 81 MG PO SCH (08:31)
[2023-05-17] MEDS: VITAMIN D PO SCH (08:31)
[2023-05-17] MEDS: AMOXIL 500 MG PO SCH ×4 (08:33→22:20)
[2023-05-17] MEDS: Protonix 40MG Tablet PO SCH (08:33)
[2023-05-17] MEDS: Glucotrol 5 MG PO SCH ×3 (08:33→17:49)
[2023-05-17] MEDS: THERAGRAN MULTIVITAMIN PO SCH (08:33)
[2023-05-17] MEDS: PLAVIX Tablet PO SCH (08:33)
[2023-05-17] MEDS: PAXLOVID 300-100 MG PACK (EUA) PO SCH ×2 (08:34→22:20)
[2023-05-17] MEDS: Glucophage 500 MG PO SCH ×3 (08:36→17:49)
[2023-05-17] MEDS: JARDIANCE PO SCH (08:37)
[2023-05-17] MEDS: HUMALOG SQ PRN (11:40)
--- NOTE | 2023-05-17 12:10 | XRAY ---
Indication: Dizziness, syncope, and frequent falls. Two-dimensional sonogram and color Doppler imaging of the carotid arteries of the neck performed. Comparison: None Examination of the right carotid circulation demonstrates tortuous common carotid artery with very minimal eccentric soft plaquing. Carotid bulb demonstrates mild heterogeneous plaquing. Lesser heterogeneous plaquing at origin/proximal internal carotid artery. Widely patent external carotid artery. PSV of the CCA is 84 cm/s. PSV of the ICA is 70 cm/s. ICA/CCA ratio is 0.8. Normal antegrade vertebral artery flow. Examination of the left carotid circulation demonstrates widely patent common carotid artery. Carotid bulb demonstrates minimal heterogeneous plaquing. Widely patent internal carotid and external carotid arteries. PSV of the CCA is 73 cm/s. PSV of the ICA is 69 cm/s. ICA/CCA ratio is 0.9. Normal antegrade vertebral artery flow. Impression: Mild right and minimal left arteriosclerotic plaquing as detailed. Velocity measurements and ratios are negative for hemodynamically significant flow-limiting stenosis.
--- NOTE | 2023-05-17 14:33 | XRAY ---
Indication: Dizziness. Frequent falls. Negative CT head exam one day earlier. Sagittal, coronal, and axial MRI brain performed without contrast using T1, T2, FLAIR, diffusion, and ADC sequences. Comparison: None Age-appropriate global atrophy, mild periventricular degenerative micro-ischemia signal bilaterally, and remote lacunar infarct right basilar ganglia. Basal ganglia demonstrates prominent Virchow Dalton spaces. No acute intracranial hemorrhage, abnormal extra-axial fluid collection, or mass effect. Diffusion images are negative for restricted signal. Fourth ventricle is midline without hydrocephalus. 7/8 cranial nerve complex bilaterally symmetric. Normal flow-void signal within the major intracerebral circulation. Normal-appearing craniocervical junction and sella turcica. Mild mucosal thickening both ethmoid and left maxillary sinuses. Tiny fluid leveling left maxillary sinus. Also fluid signal inferior right mastoid air cells presumed inflammatory. Impression: 1. Normal aging brain including atrophy and degenerative micro-ischemia. Remote lacunar infarct right basal ganglia. 2. Incidental paranasal sinus mucosal thickening and fluid signal right mastoid air cells both presumed inflammatory. 3. Remaining MRI brain without contrast exam is negative.
[2023-05-17] MEDS: Sodium Chloride 0.9% 1000 ML 1,000 ML IV SCH (14:41)
[2023-05-17] MEDS ORDERED: HUMALOG SQ PRN (14:47)
[2023-05-17] MEDS ORDERED: CEPACOL SORE THROAT LOZENGE PO PRN (15:02)
[2023-05-17] MEDS ORDERED: MYRBETRIQ PO SCH (22:00)
[2023-05-18 05:05] LABS: BASOPHIL % 0.4 % (0.0-0.4); Basophil (Absolute #) 0.05 x10^3/uL (0-0.4); Eosinophil % 1.1 % (0.00-5.0); Eosinophil (Absolute #) 0.13 x10^3/uL (0-0.5); Hematocrit 42.5 % (42-50); Hemoglobin 14.3 g/dL (12.5-18.0); IMMATURE GRAN # 0.04 x10^3u/L (0.00-0.03); IMMATURE GRAN % 0.3 % (0.00-0.4); Lymphocyte (Absolute #) 2.13 x10^3/uL (1.0-4.6); Lymphocytes % 17.4 % (24.0-44.0); Mean Cell Volume 98.8 fL (78-100); Mean Corpuscular Hemoglobin 33.3 pg (26-32); Mean Corpuscular Hgb Concent. 33.6 g/dL (32-36); Mean Platelet Volume 8.8 fL (7.5-11.0); Monocyte (Absolute #) 1.08 x10^3/uL (0.0-1.3); Monocytes % 8.8 % (0.0-12.0); Platelet Count 170 x10^3/uL (150-450); Red Cell Distribution Width 13.2 % (11.5-14.0); White Blood Count 12.2 x10^3/uL (4.0-10.5)
--- NOTE | 2023-05-18 05:11 | PCM.NOTE ---
Date and Time: 05/18/23 0510 Subjective Assessment: is a 87 year old male with a pmhx of DM, and CAD with stents who presented to ED with complaints of dizziness, unsteady gait, and multiple falls over the past two days. Prior to his fall he states his felt dizzy when standing, fumbled a bit and felt like his legs got weak and he fell down. He rep orts that the dizziness occurs mostly when he is changing positions. No "room spinning" sensation. No syncopal episodes or LOC or disorientation. No false/distorted sensation of self motion in any direction. Patient reports that he has a tooth infection which he is taking amoxicillin for. He has also developed a non-productive cough. Upon exam BUE/BLE noted with 5/5 strength. Denies fever,sob, cp, abdominal pain, ZULETA, N/V/D. Denies recent sick contacts. Upon arrival vitals were unremarkable. CT head demonstrating a nonacute senile brain with remote lacunar infarct right basal ganglia. CXR negative for cardiopulmonary process. Lab findings remarkable for leukocytosis with WBC at 13, MCV 100.9, sodium mildly low at 135, anion gap 22, co2 at 19, and BUN at 22. COVID 19 positive. Initial troponins negative. Patient admitted with weakness and falls. He reports cough but no fever, dyspnea etc. He is positive for COVID. WBC is elevated. He has a metabolic acidosis which is likely due to infection. He is oxygenating well and has no infiltrates on Cxray. At this point does not seem to need steroids or Decadron. Will evaluate for falls but likely due to infection as well. May need rehab on discharge. MRI demonstrating normal aging brain including atrophy and degenerative micro-ischemia. Remote lacunar infarct right basal ganglia. Carotid US with Mild right and minimal left arteriosclerotic plaquing. Velocity measurements and ratios are negative for hemodynamically significant flow-limiting stenosis. 05/17/23: Patient up in chair. He is oxygenating well on RA. No overnight events noted. Endorses cough and sore throat. Denies fever,sob, cp, abdominal pain, ZULETA, dizziness, N/V/D. Patient has started paxlovid. OBJECTIVE DATA Vital Signs: Vital Signs - 24 hr Temp Pulse Resp BP BP Pulse Ox 05/18/23 04:00 97.5 F 83 16 121/80 96 12/14/23 00:00 97.8 F 16 131/70 05/17/23 20:00 97.7 F 95 H 19 142/63 95 05/17/23 16:00 98.0 F 81 21 106/63 96 05/17/23 12:00 97.6 F 98 H 25 H 135/76 95 05/17/23 08:31 93 H 139/69 05/17/23 07:35 97.9 F 93 H 20 139/69 96 05/17/23 07:34 93 H 20 95 Pain Assessment - Last Documented Pain Intensity 0 Pain Scale Used [facility] Intake and Output: Intake & Output 05/15/23 05/16/23 05/17/23 05/18/23 11:59 11:59 11:59 11:59 Intake Total 1020 1410 Balance 1020 1410 Weight 84.3 kg 84.3 kg Lab Results: Lab Results-Last 24 Hours 05/17/23 05/17/23 05/17/23 Range/Units 04:59 04:59 07:26 WBC 12.6 H (4.0-10.5) x10^3/uL RBC 4.35 (4.1-5.6) x10^6/uL Hgb 14.1 (12.5-18.0) g/dL Hct 43.7 (42-50) % MCV 100.5 H (78-100) fL MCH 32.4 H (26-32) pg MCHC 32.3 (32-36) g/dL RDW 13.2 (11.5-14.0) % Plt Count 183 (150-450) x10^3/uL MPV 9.0 (7.5-11.0) fL Gran % 75.0 H (36.0-66.0) % Immature Gran % (Auto) 0.5 H (0.00-0.4) % Nucleat RBC Rel Count 0.0 (0.00-0.1) % Eos # (Auto) 0.04 (0-0.5) x10^3/uL Immature Gran # (Auto) 0.06 H (0.00-0.03) x10^3u/L Absolute Lymphs (auto) 1.90 (1.0-4.6) x10^3/uL Absolute Monos (auto) 1.07 (0.0-1.3) x10^3/uL Absolute Nucleated RBC 0.00 (0.00-0.01) x10^3u/L Lymphocytes % 15.1 L (24.0-44.0) % Monocytes % 8.5 (0.0-12.0) % Eosinophils % 0.3 (0.00-5.0) % Basophils % 0.6 (0.0-0.4) % Absolute Granulocytes 9.40 H (1.4-6.9) x10^3/uL Basophils # 0.08 (0-0.4) x10^3/uL Sodium 130 L (137-145) mmol/L Potassium 4.4 (3.5-5.1) mmol/L Chloride 101 (98-107) mmol/L Carbon Dioxide 20 L (22-30) mmol/L Anion Gap 13.4 (5-15) MEQ/L BUN 27 H (9-20) mg/dL Creatinine 0.95 (0.66-1.25) mg/dL Estimated GFR 77.0 ML/MIN Glucose 124 H (74-106) mg/dL POC Glucometer 149 H (74 to 106) mg/dL Hemoglobin A1c (4.5-6.0) % Calcium 8.4 (8.4-10.2) mg/dL Magnesium 2.3 (1.6-2.3) mg/dL Total Bilirubin 0.80 (0.2-1.3) mg/dL AST 25 (17-59) U/L ALT 15 (0-50) U/L Alkaline Phosphatase 73 (38-126) U/L Serum Total Protein 6.6 (6.3-8.2) g/dL Albumin 3.7 (3.5-5.0) g/dL 05/17/23 05/17/23 05/17/23 Range/Units 11:22 14:52 16:28 WBC (4.0-10.5) x10^3/uL RBC (4.1-5.6) x10^6/uL Hgb (12.5-18.0) g/dL Hct (42-50) % MCV (78-100) fL MCH (26-32) pg MCHC (32-36) g/dL RDW (11.5-14.0) % Plt Count (150-450) x10^3/uL MPV (7.5-11.0) fL Gran % (36.0-66.0) % Immature Gran % (Auto) (0.00-0.4) % Nucleat RBC Rel Count (0.00-0.1) % Eos # (Auto) (0-0.5) x10^3/uL Immature Gran # (Auto) (0.00-0.03) x10^3u/L Absolute Lymphs (auto) (1.0-4.6) x10^3/uL Absolute Monos (auto) (0.0-1.3) x10^3/uL Absolute Nucleated RBC (0.00-0.01) x10^3u/L Lymphocytes % (24.0-44.0) % Monocytes % (0.0-12.0) % Eosinophils % (0.00-5.0) % Basophils % (0.0-0.4) % Absolute Granulocytes (1.4-6.9) x10^3/uL Basophils # (0-0.4) x10^3/uL Sodium (137-145) mmol/L Potassium (3.5-5.1) mmol/L Chloride (98-107) mmol/L Carbon Dioxide (22-30) mmol/L Anion Gap (5-15) MEQ/L BUN (9-20) mg/dL Creatinine (0.66-1.25) mg/dL Estimated GFR ML/MIN Glucose (74-106) mg/dL POC Glucometer 305 H 97 (74 to 106) mg/dL Hemoglobin A1c 8.34 H (4.5-6.0) % Calcium (8.4-10.2) mg/dL Magnesium (1.6-2.3) mg/dL Total Bilirubin (0.2-1.3) mg/dL AST (17-59) U/L ALT (0-50) U/L Alkaline Phosphatase (38-126) U/L Serum Total Protein (6.3-8.2) g/dL Albumin (3.5-5.0) g/dL 05/17/23 Range/Units 20:50 WBC (4.0-10.5) x10^3/uL RBC (4.1-5.6) x10^6/uL Hgb (12.5-18.0) g/dL Hct (42-50) % MCV (78-100) fL MCH (26-32) pg MCHC (32-36) g/dL RDW (11.5-14.0) % Plt Count (150-450) x10^3/uL MPV (7.5-11.0) fL Gran % (36.0-66.0) % Immature Gran % (Auto) (0.00-0.4) % Nucleat RBC Rel Count (0.00-0.1) % Eos # (Auto) (0-0.5) x10^3/uL Immature Gran # (Auto) (0.00-0.03) x10^3u/L Absolute Lymphs (auto) (1.0-4.6) x10^3/uL Absolute Monos (auto) (0.0-1.3) x10^3/uL Absolute Nucleated RBC (0.00-0.01) x10^3u/L Lymphocytes % (24.0-44.0) % Monocytes % (0.0-12.0) % Eosinophils % (0.00-5.0) % Basophils % (0.0-0.4) % Absolute Granulocytes (1.4-6.9) x10^3/uL Basophils # (0-0.4) x10^3/uL Sodium (137-145) mmol/L Potassium (3.5-5.1) mmol/L Chloride (98-107) mmol/L Carbon Dioxide (22-30) mmol/L Anion Gap (5-15) MEQ/L BUN (9-20) mg/dL Creatinine (0.66-1.25) mg/dL Estimated GFR ML/MIN Glucose (74-106) mg/dL POC Glucometer 185 H (74 to 106) mg/dL Hemoglobin A1c (4.5-6.0) % Calcium (8.4-10.2) mg/dL Magnesium (1.6-2.3) mg/dL Total Bilirubin (0.2-1.3) mg/dL AST (17-59) U/L ALT (0-50) U/L Alkaline Phosphatase (38-126) U/L Serum Total Protein (6.3-8.2) g/dL Albumin (3.5-5.0) g/dL Radiology Exams: Radiology Procedures Category Date Time Status CAROTID BILATERAL [US] Routine Exams 05/17/23 08:00 Completed CHEST 1 VIEW (PORTABLE) Stat Exams 05/16/23 12:23 Completed ECHO W/2D AND DOPPLER [US] Routine Exams 05/17/23 08:00 Taken HEAD WITHOUT CONTRAST [CT] Stat Exams 05/16/23 11:04 Completed MRI BRAIN W/O CONTRAST [MRI] Routine Exams 05/17/23 08:00 Completed Multi-Disciplinary Progress Notes: Multi-Disciplinary Progress Notes 05/17/23 12:40 Case Management Note by Ana Luisa Rueda REFERRAL EMAILED TO [facility] Initialized on 05/17/23 12:40 - END OF NOTE Assessment/Plan (1) COVID-19 Current Visit: Yes Status: Acute Assessment & Plan: -CXR demonstrating minimal left base subsegmental atelectasis/scarring and a few tiny bilateral calcified granulomas. Remaining heart and lungs unremarkable. -Patient on RA with spo2 @ 98% -Supplemental oxygen with goal >92% -no pmhx of asthma/copd or hypoxia, no need for remdesivir/decadron, will start paxlovid -supportive therapies Code(s): U07.1 - COVID-19 (2) Dizziness Current Visit: Yes Status: Acute Assessment & Plan: -CT of head demonstrating a nonacute senile brain with remote lacunar infarct right basal ganglia, will order MRI -ECHO -Carotid duplex -orthostatic vitals -Will review med list for offending agents once med rec complete -PT/OT -TSH, B12 -Gentle hydration 05/17: -Carotid US showing Mild right and minimal left arteriosclerotic plaquing as detailed. Velocity measurements and ratios are negative for hemodynamically significant flow-limiting stenosis. -MRI brain showing . Normal aging brain including atrophy and degenerative micro-ischemia. Remote lacunar infarct right basal ganglia. -TSH level low, will repeat in the morning with ft4, tt3 Code(s): R42 - DIZZINESS AND GIDDINESS (3) Frequent falls Current Visit: Yes Status: Acute Assessment & Plan: -see dizziness Code(s): R29.6 - REPEATED FALLS (4) Leukocytosis Current Visit: Yes Status: Acute Assessment & Plan: -May be reactive vs infectious process -Recent tooth infection -UA negative -CXR negative -LA, PCT 05/17: -Continue home meds for tooth infection amoxil Code(s): D72.829 - ELEVATED WHITE BLOOD CELL COUNT, UNSPECIFIED (5) Hypertension Current Visit: Yes Status: Acute Assessment & Plan: -stable, some hypotensive episodes in ED, will hold bp meds for now, will continue to monitor Code(s): I10 - ESSENTIAL (PRIMARY) HYPERTENSION (6) High anion gap metabolic acidosis Current Visit: Yes Status: Acute Assessment & Plan: -May be secondary to COVID/dehydration/infection -Urinalysis with ketones/glucose, of note patient is on jardiance 05/17: -Gap closed, will continue to monitor Code(s): E87.29 - OTHER ACIDOSIS (7) Hyponatremia Current Visit: Yes Status: Acute Assessment & Plan: -mild, will continue gentle hydration, recheck in the a.m 05/17: -Increase fluids, will continue to monitor Code(s): E87.1 - HYPO-OSMOLALITY AND HYPONATREMIA (8) CAD (coronary artery disease) Current Visit: No Status: Acute Assessment & Plan: -noted, adds complexity, continue home meds Code(s): I25.10 - ATHSCL HEART DISEASE OF [place] CORONARY ARTERY W/O ANG PCTRS (9) Diabetes mellitus Current Visit: No Status: Chronic Qualifiers: Assessment & Plan: -Most recent A1c in 01/09/23 at 8.28, will redraw -SSI with low dosing during hospitalization, resume home meds -ADA diet Code(s): U07.1 - COVID-19 (2) Dizziness Current Visit: Yes Status: Acute Code(s): R42 - DIZZINESS AND GIDDINESS (3) Frequent falls Current Visit: Yes Status: Acute Code(s): R29.6 - REPEATED FALLS (4) Leukocytosis Current Visit: Yes Status: Acute Code(s): D72.829 - ELEVATED WHITE BLOOD CELL COUNT, UNSPECIFIED (5) Hypertension Current Visit: Yes Status: Acute Code(s): I10 - ESSENTIAL (PRIMARY) HYPERTENSION (6) High anion gap metabolic acidosis Current Visit: Yes Status: Acute Code(s): E87.29 - OTHER ACIDOSIS (7) Hyponatremia Current Visit: Yes Status: Acute Code(s): E87.1 - HYPO-OSMOLALITY AND HYPONATREMIA (8) CAD (coronary artery disease) Current Visit: No Status: Acute Code(s): I25.10 - ATHSCL HEART DISEASE OF [place] CORONARY ARTERY W/O ANG PCTRS (9) Diabetes mellitus Current Visit: No Status: Chronic Qualifiers: Code(s): E11.9 - TYPE 2 DIABETES MELLITUS WITHOUT COMPLICATIONS
[2023-05-18 05:37] LABS: ALBUMIN 3.7 g/dL (3.5-5.0); ANION GAP 11.2 MEQ/L (5-15); Calcium 8.3 mg/dL (8.4-10.2); Creatinine 1 0.78 mg/dL (0.66-1.25); EST GLOMERULAR FILTRATION RATE 85.8 ML/MIN; MAGNESIUM 2.4 mg/dL (1.6-2.3); Potassium 3.9 mmol/L (3.5-5.1); Total Protein 6.6 g/dL (6.3-8.2)
[2023-05-18] MEDS: Glucotrol 5 MG PO SCH ×2 (08:49→11:23)
[2023-05-18] MEDS: Glucophage 500 MG PO SCH ×2 (08:50→11:23)
[2023-05-18] MEDS: Lantus Insulin SQ SCH (08:53)
[2023-05-18] MEDS: AMOXIL 500 MG PO SCH ×2 (08:54→13:46)
[2023-05-18] MEDS: Coreg 3.125 MG PO SCH (08:54)
[2023-05-18] MEDS: Protonix 40MG Tablet PO SCH (08:56)
[2023-05-18] MEDS: THERAGRAN MULTIVITAMIN PO SCH (08:56)
[2023-05-18] MEDS: VITAMIN D PO SCH (08:56)
[2023-05-18] MEDS: PLAVIX Tablet PO SCH (08:56)
[2023-05-18] MEDS: ECOTRIN 81 MG PO SCH (08:56)
[2023-05-18] MEDS: Lanoxin 0.125MG TABLET PO SCH (08:56)
[2023-05-18] MEDS: NEURONTIN PO SCH (08:57)
[2023-05-18] MEDS: JARDIANCE PO SCH (08:59)
[2023-05-18] MEDS: PAXLOVID 300-100 MG PACK (EUA) PO SCH (09:01)
--- NOTE | 2023-05-18 11:49 | PCM.DS ---
Discharge Summary Date of Admission: 05/16/23 17:36 Date of Discharge: 05/18/23 Admitting Physician: LIZ WOOD MD Consults: Consults on Case 05/17/23 07:35 Consult Neurology ROUTINE Primary Care Provider: ROWENA VIEYRA SALLIE Allergies Allergies No Known Drug Allergies Allergy (Verified 02/25/23 19:25) Hospital Summary - Hospital Course Hospital Course: is a 87 year old male with a pmhx of DM, and CAD with stents who presented to ED with complaints of dizziness, unsteady gait, and multiple falls over the past two days. CT head demonstrating a nonacute senile brain with remote lacunar infarct right basal ganglia. CXR negative for cardiopulmonary process. Lab findings remarkable for leukocytosis with WBC at 13, MCV 100.9, sodium mildly low at 135, anion gap 22, co2 at 19, and BUN at 22. COVID 19 positive. Initial troponins negative. Patient admitted with weakness and falls. He reports cough but no fever, dyspnea etc. He is positive for COVID. WBC is el evated. He has a metabolic acidosis which is likely due to infection. He is oxygenating well and has no infiltrates on Cxray. At this point does not seem to need steroids or Decadron. MRI demonstrating normal aging brain including atrophy and degenerative micro-ischemia. Remote lacunar infarct right basal ganglia. Carotid US with Mild right and minimal left arteriosclerotic plaquing. Velocity measurements and ratios are negative for hemodynamically significant flow-limiting stenosis. Weakness related to COVID infection improved. PT has evaluated patient and he is clear to return home. Patient stable and ready for discharge. Will complete paxlovid. Discharge Note Latest Assessment & Plan (1) COVID-19 Current Visit: Yes Status: Acute Assessment & Plan: -CXR demonstrating minimal left base subsegmental atelectasis/scarring and a few tiny bilateral calcified granulomas. Remaining heart and lungs unremarkable. -Patient on RA with spo2 @ 98% -Supplemental oxygen with goal >92% -no pmhx of asthma/copd or hypoxia, no need for remdesivir/decadron, will start paxlovid -supportive therapies Code(s): U07.1 - COVID-19 (2) Dizziness Current Visit: Yes Status: Acute Assessment & Plan: -CT of head demonstrating a nonacute senile brain with remote lacunar infarct right basal ganglia, will order MRI -ECHO -Carotid duplex -orthostatic vitals -Will review med list for offending agents once med rec complete -PT/OT -TSH, B12 -Gentle hydration 05/17: -Carotid US showing Mild right and minimal left arteriosclerotic plaquing as detailed. Velocity measurements and ratios are negative for hemodynamically significant flow-limiting stenosis. -MRI brain showing . Normal aging brain including atrophy and degenerative micro-ischemia. Remote lacunar infarct right basal ganglia. -TSH level low, will repeat in the morning with ft4, tt3 Code(s): R42 - DIZZINESS AND GIDDINESS (3) Frequent falls Current Visit: Yes Status: Acute Assessment & Plan: -see dizziness Code(s): R29.6 - REPEATED FALLS (4) Leukocytosis Current Visit: Yes Status: Acute Assessment & Plan: -May be reactive vs infectious process -Recent tooth infection -UA negative -CXR negative -LA, PCT 05/17: -Continue home meds for tooth infection amoxil Code(s): D72.829 - ELEVATED WHITE BLOOD CELL COUNT, UNSPECIFIED (5) Hypertension Current Visit: Yes Status: Acute Assessment & Plan: -stable, some hypotensive episodes in ED, will hold bp meds for now, will continue to monitor Code(s): I10 - ESSENTIAL (PRIMARY) HYPERTENSION (6) High anion gap metabolic acidosis Current Visit: Yes Status: Acute Assessment & Plan: -May be secondary to COVID/dehydration/infection -Urinalysis with ketones/glucose, of note patient is on jardiance 05/17: -Gap closed, will continue to monitor Code(s): E87.29 - OTHER ACIDOSIS (7) Hyponatremia Current Visit: Yes Status: Acute Assessment & Plan: -mild, will continue gentle hydration, recheck in the a.m 05/17: -Increase fluids, will continue to monitor Code(s): E87.1 - HYPO-OSMOLALITY AND HYPONATREMIA (8) CAD (coronary artery disease) Current Visit: No Status: Acute Assessment & Plan: -noted, adds complexity, continue home meds Code(s): I25.10 - ATHSCL HEART DISEASE OF [place] CORONARY ARTERY W/O ANG PCTRS (9) Diabetes mellitus Current Visit: No Status: Chronic Qualifiers: Assessment & Plan: -Most recent A1c in 8/7/23 at 8.28, will redraw -SSI with low dosing during hospitalization, resume home meds -ADA diet Code(s): U07.1 - COVID-19 I spent 35 minutes [id number] with the patient on the day of discharge performing discharge exam, discussing hospital stay and discharge instructions with patient and caregivers, preparation of discharge records, prescriptions & referral forms and addressing any questions/concerns the patient had as doc umented above. - Vitals & Intake/Output Vital Signs: Vital Signs Temperature 97.3 F 05/18/23 07:23 Pulse Rate 87 05/18/23 08:56 Respiratory Rate 20 05/18/23 07:24 Blood Pressure 141/86 05/18/23 08:56 O2 Sat by Pulse Oximetry 98 05/18/23 07:24 Intake & Output: Intake & Output 05/15/23 05/16/23 05/17/23 05/18/23 11:59 11:59 11:59 11:59 Intake Total 1020 1650 Balance 1020 1650 Weight 84.3 kg 84.3 kg - Lab Result Diagrams: 05/18/23 05:02 05/18/23 05:02 Lab Results-Last 24 Hrs: Lab Results-Last 24 Hours 05/17/23 05/17/23 05/17/23 Range/Units 14:52 16:28 20:50 WBC (4.0-10.5) x10^3/uL RBC (4.1-5.6) x10^6/uL Hgb (12.5-18.0) g/dL Hct (42-50) % MCV (78-100) fL MCH (26-32) pg MCHC (32-36) g/dL RDW (11.5-14.0) % Plt Count (150-450) x10^3/uL MPV (7.5-11.0) fL Gran % (36.0-66.0) % Immature Gran % (Auto) (0.00-0.4) % Nucleat RBC Rel Count (0.00-0.1) % Eos # (Auto) (0-0.5) x10^3/uL Immature Gran # (Auto) (0.00-0.03) x10^3u/L Absolute Lymphs (auto) (1.0-4.6) x10^3/uL Absolute Monos (auto) (0.0-1.3) x10^3/uL Absolute Nucleated RBC (0.00-0.01) x10^3u/L Lymphocytes % (24.0-44.0) % Monocytes % (0.0-12.0) % Eosinophils % (0.00-5.0) % Basophils % (0.0-0.4) % Absolute Granulocytes (1.4-6.9) x10^3/uL Basophils # (0-0.4) x10^3/uL Sodium (137-145) mmol/L Potassium (3.5-5.1) mmol/L Chloride (98-107) mmol/L Carbon Dioxide (22-30) mmol/L Anion Gap (5-15) MEQ/L BUN (9-20) mg/dL Creatinine (0.66-1.25) mg/dL Estimated GFR ML/MIN Glucose (74-106) mg/dL POC Glucometer 97 185 H (74 to 106) mg/dL Hemoglobin A1c 8.34 H (4.5-6.0) % Calcium (8.4-10.2) mg/dL Magnesium (1.6-2.3) mg/dL Total Bilirubin (0.2-1.3) mg/dL AST (17-59) U/L ALT (0-50) U/L Alkaline Phosphatase (38-126) U/L Serum Total Protein (6.3-8.2) g/dL Albumin (3.5-5.0) g/dL Free T4 (0.78-2.19) ng/dL TSH 3rd Generation (0.47-4.68) mIU/L 05/18/23 05/18/23 05/18/23 Range/Units 05:02 05:02 05:02 WBC 12.2 H (4.0-10.5) x10^3/uL RBC 4.30 (4.1-5.6) x10^6/uL Hgb 14.3 (12.5-18.0) g/dL Hct 42.5 (42-50) % MCV 98.8 (78-100) fL MCH 33.3 H (26-32) pg MCHC 33.6 (32-36) g/dL RDW 13.2 (11.5-14.0) % Plt Count 170 (150-450) x10^3/uL MPV 8.8 (7.5-11.0) fL Gran % 72.0 H (36.0-66.0) % Immature Gran % (Auto) 0.3 (0.00-0.4) % Nucleat RBC Rel Count 0.0 (0.00-0.1) % Eos # (Auto) 0.13 (0-0.5) x10^3/uL Immature Gran # (Auto) 0.04 H (0.00-0.03) x10^3u/L Absolute Lymphs (auto) 2.13 (1.0-4.6) x10^3/uL Absolute Monos (auto) 1.08 (0.0-1.3) x10^3/uL Absolute Nucleated RBC 0.00 (0.00-0.01) x10^3u/L Lymphocytes % 17.4 L (24.0-44.0) % Monocytes % 8.8 (0.0-12.0) % Eosinophils % 1.1 (0.00-5.0) % Basophils % 0.4 (0.0-0.4) % Absolute Granulocytes 8.80 H (1.4-6.9) x10^3/uL Basophils # 0.05 (0-0.4) x10^3/uL Sodium 131 L (137-145) mmol/L Potassium 3.9 (3.5-5.1) mmol/L Chloride 100 (98-107) mmol/L Carbon Dioxide 24 (22-30) mmol/L Anion Gap 11.2 (5-15) MEQ/L BUN 24 H (9-20) mg/dL Creatinine 0.78 (0.66-1.25) mg/dL Estimated GFR 85.8 ML/MIN Glucose 93 (74-106) mg/dL POC Glucometer (74 to 106) mg/dL Hemoglobin A1c (4.5-6.0) % Calcium 8.3 L (8.4-10.2) mg/dL Magnesium 2.4 H (1.6-2.3) mg/dL Total Bilirubin 1.00 (0.2-1.3) mg/dL AST 31 (17-59) U/L ALT 16 (0-50) U/L Alkaline Phosphatase 80 (38-126) U/L Serum Total Protein 6.6 (6.3-8.2) g/dL Albumin 3.7 (3.5-5.0) g/dL Free T4 (0.78-2.19) ng/dL TSH 3rd Generation 0.432 L (0.47-4.68) mIU/L 05/18/23 05/18/23 05/18/23 Range/Units 05:02 07:07 11:28 WBC (4.0-10.5) x10^3/uL RBC (4.1-5.6) x10^6/uL Hgb (12.5-18.0) g/dL Hct (42-50) % MCV (78-100) fL MCH (26-32) pg MCHC (32-36) g/dL RDW (11.5-14.0) % Plt Count (150-450) x10^3/uL MPV (7.5-11.0) fL Gran % (36.0-66.0) % Immature Gran % (Auto) (0.00-0.4) % Nucleat RBC Rel Count (0.00-0.1) % Eos # (Auto) (0-0.5) x10^3/uL Immature Gran # (Auto) (0.00-0.03) x10^3u/L Absolute Lymphs (auto) (1.0-4.6) x10^3/uL Absolute Monos (auto) (0.0-1.3) x10^3/uL Absolute Nucleated RBC (0.00-0.01) x10^3u/L Lymphocytes % (24.0-44.0) % Monocytes % (0.0-12.0) % Eosinophils % (0.00-5.0) % Basophils % (0.0-0.4) % Absolute Granulocytes (1.4-6.9) x10^3/uL Basophils # (0-0.4) x10^3/uL Sodium (137-145) mmol/L Potassium (3.5-5.1) mmol/L Chloride (98-107) mmol/L Carbon Dioxide (22-30) mmol/L Anion Gap (5-15) MEQ/L BUN (9-20) mg/dL Creatinine (0.66-1.25) mg/dL Estimated GFR ML/MIN Glucose (74-106) mg/dL POC Glucometer 104 296 H (74 to 106) mg/dL Hemoglobin A1c (4.5-6.0) % Calcium (8.4-10.2) mg/dL Magnesium (1.6-2.3) mg/dL Total Bilirubin (0.2-1.3) mg/dL AST (17-59) U/L ALT (0-50) U/L Alkaline Phosphatase (38-126) U/L Serum Total Protein (6.3-8.2) g/dL Albumin (3.5-5.0) g/dL Free T4 1.77 (0.78-2.19) ng/dL TSH 3rd Generation (0.47-4.68) mIU/L Micro Results-Entire Visit: Accuchecks Date 05/18/23 Date 05/18/23 Date 05/17/23 Date 05/17/23 Time 21:00 Time 16:37 - Radiology Exams Ordered Rad Exams-Entire Visit: Radiology Procedures Category Date Time Status CAROTID BILATERAL [US] Routine Exams 05/17/23 08:00 Completed CHEST 1 VIEW (PORTABLE) Stat Exams 05/16/23 12:23 Completed ECHO W/2D AND DOPPLER [US] Routine Exams 05/17/23 08:00 Taken HEAD WITHOUT CONTRAST [CT] Stat Exams 05/16/23 11:04 Completed MRI BRAIN W/O CONTRAST [MRI] Routine Exams 05/17/23 08:00 Completed - Procedures and Test Procedures and Tests throughout Hospitalization: Therapy Orders & Screens 05/16/23 17:46 PT Eval & Treat (MD Order) ONCE Reason for Eval:: frequent falls Diagnosis: dizziness/frequent falls OT Eval and Treat (MD Order) ONCE Comment: Physician Instructions: Reason For Exam: Diagnosis: dizziness/frequent falls 05/16/23 17:49 Respiratory Therapy Consult ONCE Comment: Reason For Exam: Diagnosis: dizziness/frequent falls 05/16/23 18:47 PT Screen per Nursing Assess ONCE Comment: Protocol Order Physician Instructions: Greater than 3 points order PT Admission Screenin Reason For Exam: Triggered on Admission Diagnosis: Generalized weakness, covid Open Wound/Cellutlitis/Pressure Ulcers: No Acute Fx/ORIF/Change in wt bearing status: Yes Severe MUSCULOSKELETAL pain: No ADL Dysfunction: Yes Acute CVA w/Hemiparesis/Hemiplegia: No Decreased Functional Mobility/Strength: No Sprain/Strain: No Acute Post-op Mobility Dysfunction: No Total Points: 8 05/17/23 07:00 Respiratory Therapy Assessment DAILY Comment: Diagnosis: Generalized weakness, covid Discharge Exam General Appearance: no apparent distress Neurologic Exam: alert, oriented x 3, cooperative Eye Exam: PERRL Ears, Nose, Throat Exam: normal ENT inspection Neck Exam: normal inspection Respiratory Exam: normal breath sounds, lungs clear Cardiovascular Exam: regular rate/rhythm, normal heart sounds Gastrointestinal/Abdomen Exam: soft, normal bowel sounds Male Genitalia Exam: deferred Rectal Exam: deferred Back Exam: normal inspection Extremity Exam: normal inspection Skin Exam: pale Final Diagnosis/Problem List - Final Discharge Diagnosis/Problem (1) COVID-19 Current Visit: Yes Status: Acute Code(s): U07.1 - COVID-19 (2) Dizziness Current Visit: Yes Status: Acute Code(s): R42 - DIZZINESS AND GIDDINESS (3) Frequent falls Current Visit: Yes Status: Acute Code(s): R29.6 - REPEATED FALLS (4) Leukocytosis Current Visit: Yes Status: Acute Code(s): D72.829 - ELEVATED WHITE BLOOD CELL COUNT, UNSPECIFIED (5) Hypertension Current Visit: Yes Status: Acute Code(s): I10 - ESSENTIAL (PRIMARY) HYPERTENSION (6) High anion gap metabolic acidosis Current Visit: Yes Status: Acute Code(s): E87.29 - OTHER ACIDOSIS (7) Hyponatremia Current Visit: Yes Status: Acute Code(s): E87.1 - HYPO-OSMOLALITY AND HYPONATREMIA (8) CAD (coronary artery disease) Current Visit: No Status: Acute Code(s): I25.10 - ATHSCL HEART DISEASE OF [place] CORONARY ARTERY W/O ANG PCTRS (9) Diabetes mellitus Current Visit: No Status: Chronic Code(s): E11.9 - TYPE 2 DIABETES MELLITUS WITHOUT COMPLICATIONS - Discharge Disposition: Home, Self-Care Condition: Stable Prescriptions: New Nirmatrelvir/Ritonavir [Paxlovid 300-100 mg Pack (Eua)] 1 each PO BID #0 Continue Atorvastatin Calcium 20 mg PO HS Aspirin EC 81 mg [Ecotrin 81 mg] 81 mg PO DAILY Cholecalciferol (Vitamin D3) [Vitamin D3] 1 tab PO DAILY Carvedilol 3.125 mg [Coreg 3.125 MG] 3.125 mg PO BID Digoxin 125 mcg PO DAILY Clopidogrel Bisulfate [PLAVIX Tablet] 75 mg PO DAILY Empagliflozin [Jardiance] 25 mg PO DAILY Dulaglutide [Trulicity] 3 mg SQ WEEKLY Glipizide/Metformin HCl [Glipizide-Metformin 5-500 mg] 1 tablet PO TID Gabapentin [Neurontin ] 600 mg PO TID Mirabegron [Myrbetriq] 25 mg PO HS Multivitamin 1 tablet PO DAILY Insulin Glargine [Lantus Insulin] 25 units PO DAILY Amoxicillin 500 mg PO QID Additional Instructions: OUR CARE COORDINATION TEAM WILL BE REACHING OUT TO CHECK ON YOU. YOU CAN CONTACT THEM AT [phone] ext [phone] IF YOU HAVE ANY QUESTIONS OR CONCERNS Follow up with: ROWENA VIEYRA MD [Primary Care Provider] - 05/22/23 2:15 pm
[2023-05-18 13:40] VITALS: BP 125/74; PULSE 84; RESP 18; TEMP 96.9; O2SAT 97
== END 2023-05-18 14:25 | disposition home or self-care (01) ==
LOC: ED 09:07 → MED SURG 17:36
PROVIDERS: ADMIT Internal Medicine; ATTEND Internal Medicine
DX: U07.1 COVID-19 (principal); R42 Dizziness and giddiness; E86.0 Dehydration; E87.1 Hypo-osmolality and hyponatremia; R29.6 Repeated falls; E11.9 Type 2 diabetes mellitus without complications; D72.829 Elevated white blood cell count, unspecified; I10 Essential (primary) hypertension; Z20.828 Contact with and (suspected) exposure to other viral communicable diseases; E87.29 Other acidosis; I25.10 Atherosclerotic heart disease of native coronary artery without angina pectoris; Z79.899 Other long term (current) drug therapy; Z79.01 Long term (current) use of anticoagulants
CPT/HCPCS: 0241U; 36000; 36415; 70450; 70551; 71045; 80053; 80162; 81001; 82607; 82947; 83036; 83605; 83735; 84145; 84439; 84443; 84480; 84482; 84484; 85025; 93005; 93041; 93268; 93306; 93880; 94760; 94762; 99285; J1817; Q3014; 97110-GP; A9270-GY; G0378

== ENCOUNTER 2023-12-15 10:24 | Emergency (ER) | payer MEDICARE ==
[2023-12-15 10:33] VITALS: RESP 20; TEMP 97.1
--- NOTE | 2023-12-15 10:45 | ERPHSYRPT ---
- History of Present Illness Time Seen by Provider: 12/15/23 10:35 Source: patient Exam Limitations: no limitations Patient Subjective Stated Complaint: Pt states "I have had a headache for the past two days." Triage Nursing Assessment: Pt presented alert and oriented X 3, skin wpd. pt ambualtes with a slow gait with a cane Physician History: This is an 88-year-old white male patient who presented by private vehicle and is a patient of Dr. Vieyra with a complaint of a headache on the top of his head for 2 days. Patient states that he forgot to take his medication this morning that includes his blood pressure medication. His systolic blood pressure on arrival to the emergency department is 168. However in subsequent reading, his start blood pressure is 138. Patient denies head injury. He has had no visual changes. He has had no nausea vomiting or diarrhea symptoms. He denies chest pain and he denies shortness of breath. Patient does see a cleaning porter, Dr. Cummins. Patient has a chronic, recurrent history of intermittent dizziness. He denies dizziness at this time. Patient has a history of diabetes, hypertension, hyperlipidemia and coronary arteries (5 cardiac stents) Timing/Duration: day(s) (2) Quality: aching, other (The head pain location is at the top of his head, localized) Severity of Pain-Max: mild Severity of Pain-Current: mild Recent Head Trauma: no recent headache/trauma Modifying Factors: Improves With: other (Nothing) Associated Symptoms: denies symptoms Previous symptoms: no prior history, no recent treatment Allergies/Adverse Reactions: No Known Drug Allergies Allergy (Verified 02/25/23 19:25) Home Medications: Aspirin EC 81 mg [Ecotrin 81 mg] 81 mg PO DAILY 04/25/21 [History] Atorvastatin Calcium 20 mg PO HS 04/25/21 [History] Carvedilol 3.125 mg [Coreg 3.125 MG] 3.125 mg PO BID 04/25/21 [History] Cholecalciferol (Vitamin D3) [Vitamin D3] 1 tab PO DAILY 04/25/21 [History] Clopidogrel Bisulfate [PLAVIX Tablet] 75 mg PO DAILY 04/25/21 [History] Digoxin 125 mcg PO DAILY 04/25/21 [History] Dulaglutide [Trulicity] 3 mg SQ WEEKLY 04/25/21 [History] Empagliflozin [Jardiance] 25 mg PO DAILY 04/25/21 [History] Gabapentin [Neurontin ] 600 mg PO TID 04/25/21 [History] Glipizide/Metformin HCl [Glipizide-Metformin 5-500 mg] 1 tablet PO TID 04/25/21 [History] Mirabegron [Myrbetriq] 25 mg PO HS 04/25/21 [History] Multivitamin 1 tablet PO DAILY 04/25/21 [History] Insulin Glargine [Lantus Insulin] 25 units PO DAILY 02/11/22 [History] Hx Tetanus, Diphtheria Vaccination/Date Given: Yes Hx Influenza Vaccination/Date Given: No (02/10/22) Hx Pneumococcal Vaccination/Date Given: Yes Immunizations Up to Date: No Travel Risk - International Travel Have you traveled outside of the country in past 3 weeks: No - Emerging Infectious Disease Are you exhibiting symptoms associated with any current EIDs: No - Review of Systems Constitutional: No Symptoms Eyes: No Symptoms Ears, Nose, & Throat: No Symptoms Respiratory: No Symptoms Cardiac: No Symptoms Abdominal/Gastrointestinal: No Symptoms Genitourinary Symptoms: No Symptoms Musculoskeletal: No Symptoms Skin: No Symptoms Neurological: Headache (Aching at the top of his head) Psychological: No Symptoms Endocrine: No Symptoms Hematologic/Lymphatic: No Symptoms Immunological/Allergic: No Symptoms All Other Systems: Reviewed and Negative - Past Medical History Pertinent Past Medical History: Yes Neurological History: No Pertinent History ENT History: Cataracts Cardiac History: Coronary Artery Disease, High Cholesterol, Hypertension Respiratory History: No Pertinent History Endocrine Medical History: Diabetes Type II Musculoskeletal History: No Pertinent History GI Medical History: No Pertinent History History: No Pertinent History Psycho-Social History: No Pertinent History Male Reproductive Disorders: Prostate Problems Other Medical History: back surgery (discectomy), 5 stents in heart(2014) - Past Surgical History Past Surgical History: Yes Neuro Surgical History: No Pertinent History Cardiac: Cardiac Catheterization, Cardiac Stent Respiratory: No Pertinent History Gastrointestinal: Appendectomy Genitourinary: No Pertinent History Musculoskeletal: Other Male Surgical History: Prostate Surgery Other Surgical History: achilles tendon, back surgery (discectomy), 5 stents in heart(2014) - Social History Smoking Status: Never smoker Exposure to second hand smoke: No Drug Use: none Patient Lives Alone: No - Social Determinants of Health Will the patient participate in the screening: Yes Do you worry about a steady place to live?: No Do you have any problems with any of the following?: No known problems In the past 12 months,have you had to go without utilities?: No Transportation Issues: No Has anyone in your support network made you feel unsafe?: No Have you or anyone in your house had to go without enough: No - Nursing Vital Signs Nursing Vital Signs: Initial Vital Signs Temperature 97.1 F 12/15/23 10:29 Pulse Rate 103 H 12/15/23 10:29 Respiratory Rate 20 12/15/23 10:29 Blood Pressure 168/96 12/15/23 10:29 O2 Sat by Pulse Oximetry 94 L 12/15/23 10:29 Pain Scale Pain Intensity 2 - Physical Exam General Appearance: no apparent distress, alert Eye Exam: PERRL/EOMI, eyes nml inspection Ears, Nose, Throat Exam: normal ENT inspection, moist mucous membranes Neck Exam: normal inspection, non-tender, supple, full range of motion Respiratory Exam: normal breath sounds, lungs clear, airway intact, No chest tenderness, No respiratory distress Cardiovascular Exam: regular rate/rhythm, normal heart sounds, normal peripheral pulses Gastrointestinal/Abdominal Exam: soft, normal bowel sounds, No tenderness Back Exam: normal inspection, normal range of motion, No CVA tenderness, No vertebral tenderness Extremity Exam: normal inspection, normal range of motion, pelvis stable Mental Status Exam: alert, oriented x 3, 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: normal hearing, normal speech, PERRL Coordination/Gait Exam: normal finger to nose, normal gait Motor/Sensory Exam: no motor deficit, no sensory deficit Skin Exam: normal color, warm, dry Lymphatic Exam: No adenopathy SpO2 Interpretation: borderline oxygenation SpO2: 94 O2 Delivery: Room Air - Course Nursing assessment & vital signs reviewed: Yes Ordered Tests: Active Orders 24 hr Category Date Time Status HEAD WITHOUT CONTRAST [CT] Stat Exams 12/15/23 10:49 Completed Lab/Rad Data: Laboratory Results 12/15/23 Range/Units 11:50 Influenza Type A Ag NEGATIVE (NEGATIVE) Influenza Type B Ag NEGATIVE (NEGATIVE) RSV (PCR) NEGATIVE (NEGATIVE) SARS-CoV-2 (PCR) NEGATIVE (NEGATIVE) - Progress Progress: improved, re-examined Air Movement: good Progress Note: 12/15/23 10:57 My medical decision making and the assignment of low complexity to this patient's medical issue today is based on review the patient's past medical history, review of the patient's medication list, review of patient drug allergy list, history present illness and physical findings on examination. The workup today includes CT scan of the head without contrast. I do not think it necessary to do a workup to evaluate the patient's cardiac status, or obtain urinary or blood samples for workup. Differential diagnosis includes but not limited to localized headache, TIA, intracranial cerebral infarction 12/15/23 11:42 CT scan of the head without contrast was interpreted by the radiologist and I reviewed the impression. Impression states nonacute senile brain with remote lacunar infarct right basal ganglia. This is unchanged from the comparison study dated 05/16/2023. 12/15/23 12:40 Interpreted the patient's laboratory data results. Patient's viral swabs are negative Counseled pt/family regarding: lab results, diagnosis, need for follow-up, rad results Medical Desision Making - Independent Historian Additional History obtained from: Family - Diagnostic Testing Diagnostic test were ordered, analyzed, and reviewed by me: Yes Radiological Interpretation: Reviewed by me, Teleradiologist Report - Risk of complications Low Risk: Low risk of morbidity from additional dx testing or treatment - Departure Departure Disposition: Home Clinical Impression: Headache Condition: Stable Critical Care Time: No Referrals: ROWENA VIEYRA MD [Primary Care Provider] - Follow up/PCP as directed Additional Instructions: Take all your medications that you are supposed to take this morning when you get home. Call your primary care provider today, 12/15/2023, to make arranges for follow-up appointment to be evaluated in the next 3 to 5 days.
--- NOTE | 2023-12-15 11:39 | XRAY ---
Indication: Headache 2 days. Multiple contiguous axial images obtained through the head without contrast. Comparison: May 16, 2023 Again age-appropriate global atrophy, mild periventricular degenerative micro-ischemia, and remote lacunar infarct right basal ganglia. Again no acute intracranial hemorrhage, abnormal extra-axial fluid collection, or mass effect. Fourth ventricle is midline without hydrocephalus. Bony calvarium intact. Visualized paranasal sinuses and mastoid air cells are clear. Impression: Again nonacute senile brain with remote lacunar infarct right basal ganglia.
[2023-12-15 11:43] VITALS: O2SAT 94
[2023-12-15 12:30] LABS: INFLUENZA A NEGATIVE (NEGATIVE); INFLUENZA B NEGATIVE (NEGATIVE); RESPIRATORY SYNCTIAL VIRUS NEGATIVE (NEGATIVE); SARS-CoV-2 Xpert Express NEGATIVE (NEGATIVE)
[2023-12-15 12:56] VITALS: BP 149/91; PULSE 88
== END 2023-12-15 12:56 | disposition home or self-care (01) ==
LOC: ED 10:24
DX: R51.9 Headache, unspecified (principal); E11.9 Type 2 diabetes mellitus without complications; I10 Essential (primary) hypertension; E78.5 Hyperlipidemia, unspecified; Z79.02 Long term (current) use of antithrombotics/antiplatelets; Z79.85 Long-term (current) use of injectable non-insulin antidiabetic drugs; Z79.84 Long term (current) use of oral hypoglycemic drugs; Z79.4 Long term (current) use of insulin; Z79.899 Other long term (current) drug therapy
CPT/HCPCS: 0241U; 70450; 99283

== ENCOUNTER 2024-04-16 08:34 | Observation (INO) | payer MEDICARE ==
--- NOTE | 2024-04-16 08:52 | ERPHSYRPT ---
- History of Present Illness Time Seen by Provider: 04/16/24 08:50 Source: patient Exam Limitations: no limitations Physician History: 88-year-old male history of hypertension hypercholesterolemia diabetes presents to our ED for evaluation of generalized weakness. Patient states this morning he was having difficulty standing. Patient states his legs feel weak. Symptoms started today. Patient states yesterday was status quo. Patient denies associated pain no nausea no vomiting no chest pain no shortness of breath. Symptoms are constant. Symptoms are moderate in intensity. No specific worsening or improving factors. Patient states he otherwise feels fine. at bedside. They voiced no other complaints or concerns at this time. Portions of this note were created with voice recognition technology. There may be grammatical, spelling, punctuation or sound alike errors Timing/Duration: today Severity: moderate Modifying Factors: Improves With: nothing Associated Symptoms: denies symptoms Allergies/Adverse Reactions: No Known Drug Allergies Allergy (Verified 02/25/23 19:25) Home Medications: Aspirin EC 81 mg [Ecotrin 81 mg] 81 mg PO DAILY 04/25/21 [History] Atorvastatin Calcium 20 mg PO HS 04/25/21 [History] Carvedilol 3.125 mg [Coreg 3.125 MG] 3.125 mg PO BID 04/25/21 [History] Cholecalciferol (Vitamin D3) [Vitamin D3] 1 tab PO DAILY 04/25/21 [History] Clopidogrel Bisulfate [PLAVIX Tablet] 75 mg PO DAILY 04/25/21 [History] Digoxin 125 mcg PO DAILY 04/25/21 [History] Dulaglutide [Trulicity] 3 mg SQ WEEKLY 04/25/21 [History] Empagliflozin [Jardiance] 25 mg PO DAILY 04/25/21 [History] Gabapentin [Neurontin ] 600 mg PO TID 04/25/21 [History] Glipizide/Metformin HCl [Glipizide-Metformin 5-500 mg] 1 tablet PO TID 04/25/21 [History] Mirabegron [Myrbetriq] 25 mg PO HS 04/25/21 [History] Multivitamin 1 tablet PO DAILY 04/25/21 [History] Insulin Glargine [Lantus Insulin] 25 units PO DAILY 02/11/22 [History] Hx Tetanus, Diphtheria Vaccination/Date Given: Yes Hx Influenza Vaccination/Date Given: No (02/10/22) Hx Pneumococcal Vaccination/Date Given: Yes Travel Risk - Emerging Infectious Disease Are you exhibiting symptoms associated with any current EIDs: No - Review of Systems Constitutional: No Symptoms, No Fever, No Chills Eyes: No Symptoms Ears, Nose, & Throat: No Symptoms Respiratory: No Symptoms, No Cough, No Dyspnea Cardiac: No Symptoms, No Chest Pain, No Edema, No Syncope Abdominal/Gastrointestinal: No Symptoms, No Abdominal Pain, No Nausea, No Vomiting, No Diarrhea Genitourinary Symptoms: No Symptoms, No Dysuria Musculoskeletal: No Symptoms, No Back Pain, No Neck Pain Skin: No Symptoms, No Rash Neurological: No Symptoms, No Dizziness, No Focal Weakness, No Sensory Changes Psychological: No Symptoms Endocrine: No Symptoms Hematologic/Lymphatic: No Symptoms Immunological/Allergic: No Symptoms All Other Systems: Reviewed and Negative - Past Medical History Pertinent Past Medical History: Yes Neurological History: No Pertinent History ENT History: Cataracts Cardiac History: Coronary Artery Disease, High Cholesterol, Hypertension Respiratory History: No Pertinent History Endocrine Medical History: Diabetes Type II Musculoskeletal History: No Pertinent History GI Medical History: No Pertinent History History: No Pertinent History Psycho-Social History: No Pertinent History Male Reproductive Disorders: Prostate Problems Other Medical History: back surgery (discectomy), 5 stents in heart(2014) - Past Surgical History Past Surgical History: Yes Neuro Surgical History: No Pertinent History Cardiac: Cardiac Catheterization, Cardiac Stent Respiratory: No Pertinent History Gastrointestinal: Appendectomy Genitourinary: No Pertinent History Musculoskeletal: Other Male Surgical History: Prostate Surgery Other Surgical History: achilles tendon, back surgery (discectomy), 5 stents in heart(2014) - Social History Smoking Status: Never smoker Exposure to second hand smoke: No Drug Use: none Patient Lives Alone: No - Social Determinants of Health Will the patient participate in the screening: Yes Do you worry about a steady place to live?: No In the past 12 months,have you had to go without utilities?: No Transportation Issues: No Has anyone in your support network made you feel unsafe?: No Have you or anyone in your house had to go without enough: No - Nursing Vital Signs Nursing Vital Signs: Initial Vital Signs Temperature 97.2 F 04/16/24 08:50 Pulse Rate 108 H 04/16/24 08:50 Respiratory Rate 16 04/16/24 08:50 Blood Pressure 129/82 04/16/24 08:50 O2 Sat by Pulse Oximetry 95 04/16/24 08:50 Pain Scale Pain Intensity 0 - Physical Exam General Appearance: no apparent distress, alert Eye Exam: PERRL/EOMI, eyes nml inspection Ears, Nose, Throat Exam: normal ENT inspection, TMs normal, pharynx normal, moist mucous membranes Neck Exam: normal inspection, non-tender, supple, full range of motion Respiratory Exam: normal breath sounds, lungs clear, airway intact, No respiratory distress Cardiovascular Exam: regular rate/rhythm, normal heart sounds, normal peripheral pulses Gastrointestinal/Abdomen Exam: soft, normal bowel sounds, No tenderness, No mass Back Exam: normal inspection, normal range of motion, No CVA tenderness, No vertebral tenderness Extremity Exam: normal inspection, normal range of motion, pelvis stable Neurologic Exam: alert, oriented x 3, cooperative, normal mood/affect, sensation nml, other (Patient requires assist to transition from sit to stand.), No motor deficits Skin Exam: normal color, warm, dry, No rash Lymphatic Exam: No adenopathy SpO2 Interpretation: normal O2 Delivery: Room Air - Course Nursing assessment & vital signs reviewed: Yes EKG Interpreted by Me: RATE ([id number]), Sinus Rhythm, NORMAL AXIS, NORMAL INTERVALS, NORMAL QRS Ordered Tests: Active Orders 24 hr Category Date Time Status Bedrest ROUTINE Activity 04/16/24 12:22 Active Call Admit Doctor for Orders ON ADMISSION Care 04/16/24 12:22 Active Sterile Supply Technician ROUTINE Care 04/16/24 12:22 Active Sterile Supply Technician STAT Care 04/16/24 08:49 Completed Code Status Order ROUTINE Care 04/16/24 12:22 Active EKG-ER Only STAT Care 04/16/24 08:49 Completed IV Insertion STAT Care 04/16/24 08:49 Completed Neuro Checks Q4H Care 04/16/24 12:[address] in Observation ROUTINE Care 04/16/24 12:22 Active Pulse Oximetry (ED) STAT Care 04/16/24 08:49 Completed Telemetry q6h Care 04/16/24 12:22 Active Telemetry q6h Care 04/16/24 12:22 Completed Consistent Carbohydrate Diet 1800 Calorie Diet 04/16/24 Lunch Active CBC W DIFF Stat Lab 04/16/24 08:54 Completed CMP Stat Lab 04/16/24 08:54 Completed CULTURE,URINE Stat Lab 04/16/24 10:31 Received POCT GLUCOSE Stat Lab 04/16/24 08:55 Completed TROPONIN Q4H Lab 04/16/24 08:54 Completed TROPONIN Q4H Lab 04/16/24 13:10 Completed TROPONIN Q4H Lab 04/16/24 17:00 Ordered UA W/RFX UR CULTURE Stat Lab 04/16/24 10:31 Completed Pulse Oximetry CONTINUOUS RT 04/16/24 12:22 Completed Transfer Order Routine Transfer 04/16/24 Completed Medication Summary Generic Name Dose Route Start Last Admin Trade Name Freandrey PRN Reason Stop Dose Admin Acetaminophen 650 mg 04/16/24 13:01 Acetaminophen 325 Mg Tablet PO 05/16/24 13:00 Q4H PRN PRN PAIN, FEVER, HEADACHE Enoxaparin Sodium 40 mg 04/16/24 14:00 Enoxaparin Sodium 40 Mg/0.4 Ml Syringe SQ 05/16/24 13:59 DAILY MANAV Sodium Chloride 1,000 mls @ 100 mls/hr 04/16/24 11:00 04/16/24 11:07 Sodium Chloride 0.9% 1000 Ml IV 04/16/24 20:59 100 mls/hr .Q10H MANAV Administration Ceftriaxone Sodium 1 gm in 100 mls @ 200 mls/hr 04/17/24 10:00 Rocephin 1 Gm / 100 Ml Nacl IV 05/17/24 09:59 Q24H10 MANAV Insulin Human Lispro 0 unit 04/16/24 13:01 Insulin Lispro 1 Unit SQ 05/16/24 13:00 UD PRN HYPERGLYCEMIA Ondansetron HCl 4 mg 04/16/24 13:01 Ondansetron Hcl 4 Mg/2 Ml Vial IV 05/16/24 13:00 Q6H PRN PRN NAUSEA/VOMITING Discontinued Medications Generic Name Dose Route Start Last Admin Trade Name Freq PRN Reason Stop Dose Admin Ceftriaxone Sodium 1 gm in 100 mls @ 200 mls/hr 04/16/24 10:52 04/16/24 11:08 Rocephin 1 Gm / 100 Ml Nacl IV 04/16/24 11:21 200 mls/hr STAT ONE 200 mls/hr Administration Ceftriaxone Sodium Confirm 04/16/24 11:03 Rocephin 1 Gm / 100 Ml Nacl Administered 04/16/24 11:04 Dose 1 gm in 100 mls @ ud IV .STK-MED ONE Lab/Rad Data: Laboratory Result Diagrams 04/16/24 08:54 04/16/24 08:54 Laboratory Results 04/16/24 04/16/24 04/16/24 Range/Units 10:31 08:55 08:54 WBC (4.23-9.07) x10^3/uL RBC (4.63-6.08) x10^6/uL Hgb (13.7-17.5) g/dL Hct (40.1-51.0) % MCV (79.0-92.2) fL MCH (25.7-32.2) pg MCHC (32.3-36.5) g/dL RDW (11.6-14.4) % Plt Count (163-337) x10^3/uL MPV (9.4-12.4) fL Gran % (34.0-67.9) % Immature Gran % (Auto) (0.001-0.429) % Nucleat RBC Rel Count (0.00-0.2) % Eos # (Auto) (0.04-0.54) x10^3/uL Immature Gran # (Auto) (0.001-0.031) x10^3u/L Absolute Lymphs (auto) (1.32-3.57) x10^3/uL Absolute Monos (auto) (0.30-0.82) x10^3/uL Absolute Nucleated RBC (0.00-0.012) x10^3u/L Lymphocytes % (21.8-53.1) % Monocytes % (5.3-12.2) % Eosinophils % (0.8-7.0) % Basophils % (0.2-1.2) % Absolute Granulocytes (1.78-5.38) x10^3/uL Basophils # (0.01-0.08) x10^3/uL Sodium (135-145) mmol/L Potassium (3.5-5.1) mmol/L Chloride (98-107) mmol/L Carbon Dioxide (22-30) mmol/L Anion Gap (5-15) MEQ/L BUN (9-20) mg/dL Creatinine (0.66-1.25) mg/dL Estimated GFR ML/MIN Glucose (74-106) mg/dL POC Glucometer 355 H (74 to 106) mg/dL Calcium (8.4-10.2) mg/dL Total Bilirubin (0.2-1.3) mg/dL AST (17-59) U/L ALT (0-50) U/L Alkaline Phosphatase (38-126) U/L Troponin I (0.000-0.033) ng/mL Serum Total Protein (6.3-8.2) g/dL Albumin (3.5-5.0) g/dL Urine Color Yellow (Yellow) Urine Appearance Clear (Clear) Urine pH 5.0 (4.6-8.0) Ur Specific [place] >=1.030 A (1.005-1.030) Urine Protein Negative (Negative) Urine Glucose (UA) >=1000 A (Negative) mg/dL Urine Ketones 15 A (Negative) Urine Blood Negative (Negative) Urine Nitrite Negative (Negative) Urine Bilirubin Negative (Negative) Urine Urobilinogen 0.2 (0.2) mg/dL Ur Leukocyte Esterase Trace A (Negative) U Hyaline Cast (Auto) 3-5 A (0-2) /LPF Urine Microscopic RBC 0-2 (0-5) /HPF Urine Microscopic WBC 21-50 A (0-5) /HPF Ur Epithelial Cells None Seen (None Seen) /HPF Urine Bacteria None Seen (None Seen) /HPF Urine Culture Reflexed YES (NO) Digoxin < 0.4 L (0.8-1.9) ng/mL 04/16/24 04/16/24 04/16/24 Range/Units 08:54 08:54 08:54 WBC 9.0 (4.23-9.07) x10^3/uL RBC 4.35 L (4.63-6.08) x10^6/uL Hgb 14.7 (13.7-17.5) g/dL Hct 42.2 (40.1-51.0) % MCV 97.0 H (79.0-92.2) fL MCH 33.8 H (25.7-32.2) pg MCHC 34.8 (32.3-36.5) g/dL RDW 12.9 (11.6-14.4) % Plt Count 203 (163-337) x10^3/uL MPV 9.1 L (9.4-12.4) fL Gran % 76.0 H (34.0-67.9) % Immature Gran % (Auto) 0.4 (0.001-0.429) % Nucleat RBC Rel Count 0.0 (0.00-0.2) % Eos # (Auto) 0.10 (0.04-0.54) x10^3/uL Immature Gran # (Auto) 0.04 H (0.001-0.031) x10^3u/L Absolute Lymphs (auto) 1.47 (1.32-3.57) x10^3/uL Absolute Monos (auto) 0.48 (0.30-0.82) x10^3/uL Absolute Nucleated RBC 0.00 (0.00-0.012) x10^3u/L Lymphocytes % 16.4 L (21.8-53.1) % Monocytes % 5.3 (5.3-12.2) % Eosinophils % 1.1 (0.8-7.0) % Basophils % 0.8 (0.2-1.2) % Absolute Granulocytes 6.82 H (1.78-5.38) x10^3/uL Basophils # 0.07 (0.01-0.08) x10^3/uL Sodium 134 L (135-145) mmol/L Potassium 4.4 (3.5-5.1) mmol/L Chloride 98 (98-107) mmol/L Carbon Dioxide 26 (22-30) mmol/L Anion Gap 13.9 (5-15) MEQ/L BUN 22 H (9-20) mg/dL Creatinine 0.89 (0.66-1.25) mg/dL Estimated GFR 81.9 ML/MIN Glucose 381 H (74-106) mg/dL POC Glucometer (74 to 106) mg/dL Calcium 9.8 (8.4-10.2) mg/dL Total Bilirubin 1.00 (0.2-1.3) mg/dL AST 29 (17-59) U/L ALT 24 (0-50) U/L Alkaline Phosphatase 90 (38-126) U/L Troponin I < 0.012 (0.000-0.033) ng/mL Serum Total Protein 6.5 (6.3-8.2) g/dL Albumin 3.9 (3.5-5.0) g/dL Urine Color (Yellow) Urine Appearance (Clear) Urine pH (4.6-8.0) Ur Specific [place] (1.005-1.030) Urine Protein (Negative) Urine Glucose (UA) (Negative) mg/dL Urine Ketones (Negative) Urine Blood (Negative) Urine Nitrite (Negative) Urine Bilirubin (Negative) Urine Urobilinogen (0.2) mg/dL Ur Leukocyte Esterase (Negative) U Hyaline Cast (Auto) (0-2) /LPF Urine Microscopic RBC (0-5) /HPF Urine Microscopic WBC (0-5) /HPF Ur Epithelial Cells (None Seen) /HPF Urine Bacteria (None Seen) /HPF Urine Culture Reflexed (NO) Digoxin (0.8-1.9) ng/mL - Progress Progress: improved Progress Note: 61-year-old male presents to emergency department for evaluation of generalized weakness. Physical exam otherwise unremarkable. Workup reveals dehydration with an elevated BUN/creatinine ratio. Specific gravity elevated as well. Urinalysis reveals a urinary tract infection. Laboratory workup otherwise no acutely concerning findings. Patient is weak. He has difficulty standing. No pain. We will admit patient for treatment of dehydration urinary tract infection and generalized weakness. Plan of care discussed with patient and his daughter who is at the bedside. They agree to admission at [facility] for further evaluation and treatment. Patient voices no othe r complaints or concerns at this time. Portions of this note were created with voice recognition technology. There may be grammatical, spelling, punctuation or sound alike errors Complexity of problem addressed is moderate acute complicated no critical care time. Complex of data reviewed and analyzed is extensive. Test ordered chest reviewed results analyzed and correlated clinically with history and physical exam. Management discussed with hospitalist at 11:[address] Cervantes accepts ad mission to observation. Risk of complication and or risk of morbidity/mortality of patient management is high. Patient requires hospitalization for further evaluation and treatment. Vital stable. Time spent admit patient is approximately 15 minutes. Plan of care established for shared decision making. No social determinants of health present to impede follow-up. Portions of this note were created with voice recognition technology. There may be grammatical, spelling, punctuation or sound alike errors 04/16/24 11:14 Counseled pt/family regarding: lab results, diagnosis - Departure Departure Disposition: Observation Clinical Impression: Dehydration, UTI (urinary tract infection), Glucosuria, Generalized weakness Condition: Stable Critical Care Time: No
[2024-04-16 09:01] LABS: Absolute Neutrophil Ct (ANC) 6.82 x10^3/uL (1.78-5.38); BASOPHIL % 0.8 % (0.2-1.2); Basophil (Absolute #) 0.07 x10^3/uL (0.01-0.08); Eosinophil % 1.1 % (0.8-7.0); Hematocrit 42.2 % (40.1-51.0); Hemoglobin 14.7 g/dL (13.7-17.5); IMMATURE GRAN # 0.04 x10^3u/L (0.001-0.031); IMMATURE GRAN % 0.4 % (0.001-0.429); Lymphocyte (Absolute #) 1.47 x10^3/uL (1.32-3.57); Lymphocytes % 16.4 % (21.8-53.1); Mean Corpuscular Hemoglobin 33.8 pg (25.7-32.2); Mean Corpuscular Hgb Concent. 34.8 g/dL (32.3-36.5); Mean Platelet Volume 9.1 fL (9.4-12.4); Monocyte (Absolute #) 0.48 x10^3/uL (0.30-0.82); Monocytes % 5.3 % (5.3-12.2); Platelet Count 203 x10^3/uL (163-337); Red Blood Count 4.35 x10^6/uL (4.63-6.08); Red Cell Distribution Width 12.9 % (11.6-14.4)
[2024-04-16 09:21] LABS: ALBUMIN 3.9 g/dL (3.5-5.0); ANION GAP 13.9 MEQ/L (5-15); Calcium 9.8 mg/dL (8.4-10.2); Creatinine 1 0.89 mg/dL (0.66-1.25); EST GLOMERULAR FILTRATION RATE 81.9 ML/MIN; Potassium 4.4 mmol/L (3.5-5.1); Total Protein 6.5 g/dL (6.3-8.2)
[2024-04-16 10:42] LABS: Appearance Clear (Clear); Bacteria None Seen /HPF (None Seen); Bilirubin Negative (Negative); Blood Negative (Negative); Epithelial Cells None Seen /HPF (None Seen); Glucose, Urine >=1000 mg/dL (Negative); Ketones 15 (Negative); Leukocyte Esterase Trace (Negative); Nitrite Negative (Negative); Protein,Urine Dip Negative (Negative); RBC 0-2 /HPF (0-5); Specific Gravity >=1.030 (1.005-1.030); Urobilinogen 0.2 mg/dL (0.2); WBC 21-50 /HPF (0-5)
[2024-04-16] MEDS ORDERED: ROCEPHIN 1 GM / 100 ML NaCl 1 GM/100 ML IVPB IV ONE (11:03)
[2024-04-16] MEDS: Sodium Chloride 0.9% 1000 ML 1,000 ML IV SCH (11:07)
[2024-04-16] MEDS: ROCEPHIN 1 GM / 100 ML NaCl 1 GM/100 ML IVPB IV ONE (11:08)
--- NOTE | 2024-04-16 11:50 | PCM.HP ---
History of Present Illness - Chief Complaint Chief Complaint: weakness Date: 04/16/24 History of Present Illness: is a 88 year old male with a pmhx of CAD, HLD, HTN, DMII, and BPH presented to ED 04/16/24 for evaluation of generalized weakness. Patient reports that he has had progressive BLE weakness for about a week now and today felt like his legs were going to give out. He denies headache, numbness to face, confusion, trouble speaking, dysphagia, dizziness, vision troubles, unsteady gait, slurred speech, weakness to upper extremities. No recent illness or sick contacts. No other voiced complaints. Upon arrival to ED mildly tachcardic, afebrile, and spo2 at 95% on RA. Lab findings remarkable for hyponatremia in the setting of hyperglycemia with a UA suspicious for infection. Patient given ceftriaxone and IVF in ED. Admit for UTI and generalized weakness. Plan for continued IV abx with PT evaluation. - Review of Systems Constitutional: Weakness (BLE) Eyes: No Symptoms Ears, Nose, & Throat: Nose Congestion Respiratory: No Symptoms Cardiac: No Symptoms Abdominal/Gastrointestinal: No Symptoms Genitourinary Symptoms: No Symptoms Musculoskeletal: No Symptoms Skin: No Symptoms Neurological: No Symptoms Psychological: No Symptoms Endocrine: No Symptoms Hematologic/Lymphatic: No Symptoms Immunological/Allergic: No Symptoms Medications & Allergies Home Medications: Home Medication List Aspirin EC 81 mg [Ecotrin 81 mg] 81 mg PO DAILY 04/25/21 [History Confirmed 04/16/24] Atorvastatin Calcium 20 mg PO HS 04/25/21 [History Confirmed 04/16/24] Carvedilol 3.125 mg [Coreg 3.125 MG] 3.125 mg PO BID 04/25/21 [History Confirmed 04/16/24] Cholecalciferol (Vitamin D3) [Vitamin D3] 1 tab PO DAILY 04/25/21 [History Confirmed 04/16/24] Clopidogrel Bisulfate [PLAVIX Tablet] 75 mg PO DAILY 04/25/21 [History Confirmed 04/16/24] Digoxin 125 mcg PO DAILY 04/25/21 [History Confirmed 04/16/24] Dulaglutide [Trulicity] 3 mg SQ WEEKLY 04/25/21 [History Confirmed 04/16/24] Empagliflozin [Jardiance] 25 mg PO DAILY 04/25/21 [History Confirmed 04/16/24] Gabapentin [Neurontin ] 600 mg PO TID 04/25/21 [History Confirmed 04/16/24] Glipizide/Metformin HCl [Glipizide-Metformin 5-500 mg] 1 tablet PO TID 04/25/21 [History Confirmed 04/16/24] Mirabegron [Myrbetriq] 25 mg PO HS 04/25/21 [History Confirmed 04/16/24] Multivitamin 1 tablet PO DAILY 04/25/21 [History Confirmed 04/16/24] Insulin Glargine [Lantus Insulin] 25 units PO DAILY 02/11/22 [History Confirmed 04/16/24] Allergies/Adverse Reactions: Allergies Allergy/AdvReac Type Severity Reaction Status Date / Time No Known Drug Allergies Allergy Verified 02/25/23 19:25 - Past Medical History Past Medical History: Yes Neurological History: No Pertinent History ENT History: Cataracts Cardiac History: Coronary Artery Disease, High Cholesterol, Hypertension Respiratory History: No Pertinent History Endocrine Medical History: Diabetes Type II Musculoskelatal History: No Pertinent History GI Medical History: No Pertinent History History: No Pertinent History Pyscho-Social History: No Pertinent History Male Reproductive Disorders: Prostate Problems Comment: back surgery (discectomy), 5 stents in heart(2014) - Past Surgical History Past Surgical History: Yes Neuro Surgical History: No Pertinent History Cardiac History: Cardiac Catheterization, Cardiac Stent Respiratory Surgery: No Pertinent History GI Surgical History: Appendectomy Genitourinary Surgical Hx: No Pertinent History Musculskeletal Surgical Hx: Other Male Surgical History: Prostate Surgery Other Surgical History: achilles tendon, back surgery (discectomy), 5 stents in heart(2014) Significant Family History: no pertinent family hx - Social History Smoking Status: Never smoker Exposure to second hand smoke: No Alcohol: None Drug Use: none - Social Determinants of Health Will the patient participate in the screening: Yes Do you worry about a steady place to live?: No In the past 12 months,have you had to go without utilities?: No Have you or anyone in your house had to go without enough: No Transportation Issues: No Has anyone in your support network made you feel unsafe?: No Does the patient want assistance with any of the above?: No - Physical Exam Vital Signs: Vital Signs - 24 hr Temp Pulse Resp BP BP Pulse Ox 04/16/24 11:00 86 14 107/75 95 04/16/24 10:30 90 16 98 04/16/24 10:00 91 H 19 117/65 04/16/24 09:30 95 H 19 107/73 95 04/16/24 09:09 98 04/16/24 09:00 99 H 7 L 129/82 96 04/16/24 08:50 97.2 F 108 H 16 129/82 95 General Appearance: no apparent distress Neurologic Exam: alert, oriented x 3, cooperative Eye Exam: PERRL/EOMI Ears, Nose, Throat Exam: normal ENT inspection Neck Exam: normal inspection Respiratory Exam: wheezing Cardiovascular Exam: regular rate/rhythm, normal heart sounds Gastrointestinal/Abdomen Exam: soft, normal bowel sounds Rectal Exam: deferred Back Exam: normal inspection Extremity Exam: normal inspection Skin Exam: normal color Results - Labs Lab/Micro Results: Lab Results-Last 24 Hours 04/16/24 04/16/24 04/16/24 Range/Units 08:54 08:54 08:54 WBC 9.0 (4.23-9.07) x10^3/uL RBC 4.35 L (4.63-6.08) x10^6/uL Hgb 14.7 (13.7-17.5) g/dL Hct 42.2 (40.1-51.0) % MCV 97.0 H (79.0-92.2) fL MCH 33.8 H (25.7-32.2) pg MCHC 34.8 (32.3-36.5) g/dL RDW 12.9 (11.6-14.4) % Plt Count 203 (163-337) x10^3/uL MPV 9.1 L (9.4-12.4) fL Gran % 76.0 H (34.0-67.9) % Immature Gran % (Auto) 0.4 (0.001-0.429) % Nucleat RBC Rel Count 0.0 (0.00-0.2) % Eos # (Auto) 0.10 (0.04-0.54) x10^3/uL Immature Gran # (Auto) 0.04 H (0.001-0.031) x10^3u/L Absolute Lymphs (auto) 1.47 (1.32-3.57) x10^3/uL Absolute Monos (auto) 0.48 (0.30-0.82) x10^3/uL Absolute Nucleated RBC 0.00 (0.00-0.012) x10^3u/L Lymphocytes % 16.4 L (21.8-53.1) % Monocytes % 5.3 (5.3-12.2) % Eosinophils % 1.1 (0.8-7.0) % Basophils % 0.8 (0.2-1.2) % Absolute Granulocytes 6.82 H (1.78-5.38) x10^3/uL Basophils # 0.07 (0.01-0.08) x10^3/uL Sodium 134 L (135-145) mmol/L Potassium 4.4 (3.5-5.1) mmol/L Chloride 98 (98-107) mmol/L Carbon Dioxide 26 (22-30) mmol/L Anion Gap 13.9 (5-15) MEQ/L BUN 22 H (9-20) mg/dL Creatinine 0.89 (0.66-1.25) mg/dL Estimated GFR 81.9 ML/MIN Glucose 381 H (74-106) mg/dL POC Glucometer (74 to 106) mg/dL Calcium 9.8 (8.4-10.2) mg/dL Total Bilirubin 1.00 (0.2-1.3) mg/dL AST 29 (17-59) U/L ALT 24 (0-50) U/L Alkaline Phosphatase 90 (38-126) U/L Troponin I < 0.012 (0.000-0.033) ng/mL Serum Total Protein 6.5 (6.3-8.2) g/dL Albumin 3.9 (3.5-5.0) g/dL Urine Color (Yellow) Urine Appearance (Clear) Urine pH (4.6-8.0) Ur Specific [place] (1.005-1.030) Urine Protein (Negative) Urine Glucose (UA) (Negative) mg/dL Urine Ketones (Negative) Urine Blood (Negative) Urine Nitrite (Negative) Urine Bilirubin (Negative) Urine Urobilinogen (0.2) mg/dL Ur Leukocyte Esterase (Negative) U Hyaline Cast (Auto) (0-2) /LPF Urine Microscopic RBC (0-5) /HPF Urine Microscopic WBC (0-5) /HPF Ur Epithelial Cells (None Seen) /HPF Urine Bacteria (None Seen) /HPF Urine Culture Reflexed (NO) Digoxin (0.8-1.9) ng/mL 04/16/24 04/16/24 04/16/24 Range/Units 08:54 08:55 10:31 WBC (4.23-9.07) x10^3/uL RBC (4.63-6.08) x10^6/uL Hgb (13.7-17.5) g/dL Hct (40.1-51.0) % MCV (79.0-92.2) fL MCH (25.7-32.2) pg MCHC (32.3-36.5) g/dL RDW (11.6-14.4) % Plt Count (163-337) x10^3/uL MPV (9.4-12.4) fL Gran % (34.0-67.9) % Immature Gran % (Auto) (0.001-0.429) % Nucleat RBC Rel Count (0.00-0.2) % Eos # (Auto) (0.04-0.54) x10^3/uL Immature Gran # (Auto) (0.001-0.031) x10^3u/L Absolute Lymphs (auto) (1.32-3.57) x10^3/uL Absolute Monos (auto) (0.30-0.82) x10^3/uL Absolute Nucleated RBC (0.00-0.012) x10^3u/L Lymphocytes % (21.8-53.1) % Monocytes % (5.3-12.2) % Eosinophils % (0.8-7.0) % Basophils % (0.2-1.2) % Absolute Granulocytes (1.78-5.38) x10^3/uL Basophils # (0.01-0.08) x10^3/uL Sodium (135-145) mmol/L Potassium (3.5-5.1) mmol/L Chloride (98-107) mmol/L Carbon Dioxide (22-30) mmol/L Anion Gap (5-15) MEQ/L BUN (9-20) mg/dL Creatinine (0.66-1.25) mg/dL Estimated GFR ML/MIN Glucose (74-106) mg/dL POC Glucometer 355 H (74 to 106) mg/dL Calcium (8.4-10.2) mg/dL Total Bilirubin (0.2-1.3) mg/dL AST (17-59) U/L ALT (0-50) U/L Alkaline Phosphatase (38-126) U/L Troponin I (0.000-0.033) ng/mL Serum Total Protein (6.3-8.2) g/dL Albumin (3.5-5.0) g/dL Urine Color Yellow (Yellow) Urine Appearance Clear (Clear) Urine pH 5.0 (4.6-8.0) Ur Specific [place] >=1.030 A (1.005-1.030) Urine Protein Negative (Negative) Urine Glucose (UA) >=1000 A (Negative) mg/dL Urine Ketones 15 A (Negative) Urine Blood Negative (Negative) Urine Nitrite Negative (Negative) Urine Bilirubin Negative (Negative) Urine Urobilinogen 0.2 (0.2) mg/dL Ur Leukocyte Esterase Trace A (Negative) U Hyaline Cast (Auto) 3-5 A (0-2) /LPF Urine Microscopic RBC 0-2 (0-5) /HPF Urine Microscopic WBC 21-50 A (0-5) /HPF Ur Epithelial Cells None Seen (None Seen) /HPF Urine Bacteria None Seen (None Seen) /HPF Urine Culture Reflexed YES (NO) Digoxin < 0.4 L (0.8-1.9) ng/mL Assessment/Plan (1) Urinary tract infection Current Visit: Yes Status: Acute Qualifiers: Assessment & Plan: -UA reviewed and suspicious for infection, ceftriaxone initiated in ED, will continue Code(s): N39.0 - URINARY TRACT INFECTION, SITE NOT SPECIFIED (2) Generalized weakness Current Visit: Yes Status: Acute Assessment & Plan: -Could be multifactorial with UTI and hyperglycemia -PT eval -cxr Code(s): R53.1 - WEAKNESS (3) Hyperglycemia Current Visit: Yes Status: Acute Assessment & Plan: -Reviewed previous A1c from 11/01/23 showing poor control at 8.23 -Will recheck A1c -Could be secondary to infection -SSI/ADA diet Code(s): R73.9 - HYPERGLYCEMIA, UNSPECIFIED (4) Hyponatremia Current Visit: Yes Status: Acute Assessment & Plan: -In the setting hyperglycemia -correct sodium 138 Code(s): E87.1 - HYPO-OSMOLALITY AND HYPONATREMIA (5) Type 2 diabetes mellitus Current Visit: Yes Status: Acute Assessment & Plan: -ADA diet -SSI/glargine -a1c (6) HLD (hyperlipidemia) Current Visit: Yes Status: Acute Assessment & Plan: -continue statin Code(s): E78.5 - HYPERLIPIDEMIA, UNSPECIFIED (7) HTN (hypertension) Current Visit: Yes Status: Acute Assessment & Plan: -stable, continue home meds Code(s): I10 - ESSENTIAL (PRIMARY) HYPERTENSION (8) CAD (coronary artery disease) Current Visit: No Status: Acute Assessment & Plan: -Reviewed echo from 05/17/23 EF estimated at 55-60% 1) NORMAL CONTRACTILITY OF THE LEFT VENTRICLE. 2) MODERATE LEFT ATRIAL DILATATION. 3) MILD TRICUSPID REGURGITATION. 4) TRACE AMOUNT OF PULMONIC REGURGITATION. -trops x 1 negative -continue home meds VTE: Lovenox PPI: protonix Dispo: 1-2 days Code status: SCO Code(s): I25.10 - ATHSCL HEART DISEASE OF [place] CORONARY ARTERY W/O ANG PCTRS
[2024-04-16] MEDS ORDERED: Zofran 4 MG/2 ML VIAL IV PRN (13:01)
[2024-04-16] MEDS ORDERED: TYLENOL 325 MG PO PRN (13:01)
--- NOTE | 2024-04-16 13:39 | XRAY ---
Indication: Wheezing. Comparison: May 16, 2023 Portable chest unchanged again demonstrating minimal left base subsegmental atelectasis/scarring with calcified granuloma. No focal infiltrate, consolidation, or large effusion. Heart not enlarged. Bony thorax intact again with osteopenia, degenerative changes, and old right rib fractures. Impression: Continued nonacute chest with chronic features.
[2024-04-16] MEDS: ENOXAPARIN SODIUM SQ SCH (15:32)
[2024-04-16] MEDS: VITAMIN D PO SCH (15:41)
[2024-04-16] MEDS: ECOTRIN 81 MG PO SCH (15:41)
[2024-04-16] MEDS: NEURONTIN PO SCH (15:41)
[2024-04-16] MEDS: PLAVIX Tablet PO SCH (15:42)
[2024-04-16] MEDS: THERAGRAN MULTIVITAMIN PO SCH (15:42)
[2024-04-16] MEDS: Lantus Insulin SQ SCH (15:54)
[2024-04-16] MEDS: HUMALOG SQ PRN (15:55)
[2024-04-16] MEDS: Lanoxin 0.125MG TABLET PO SCH ×2 (17:19→17:23)
[2024-04-16] MEDS: ZOCOR 20MG PO SCH (21:30)
[2024-04-16] MEDS: Coreg 3.125 MG PO SCH (21:30)
[2024-04-16] MEDS: MYRBETRIQ PO SCH (21:30)
[2024-04-17 04:22] VITALS: RESP 16
[2024-04-17 04:44] LABS: Absolute Neutrophil Ct (ANC) 3.62 x10^3/uL (1.78-5.38); BASOPHIL % 0.9 % (0.2-1.2); Basophil (Absolute #) 0.06 x10^3/uL (0.01-0.08); Eosinophil % 1.8 % (0.8-7.0); Eosinophil (Absolute #) 0.12 x10^3/uL (0.04-0.54); Hematocrit 40.4 % (40.1-51.0); Hemoglobin 13.8 g/dL (13.7-17.5); IMMATURE GRAN # 0.01 x10^3u/L (0.001-0.031); IMMATURE GRAN % 0.1 % (0.001-0.429); Lymphocyte (Absolute #) 2.37 x10^3/uL (1.32-3.57); Lymphocytes % 35.3 % (21.8-53.1); Mean Cell Volume 97.3 fL (79.0-92.2); Mean Corpuscular Hemoglobin 33.3 pg (25.7-32.2); Mean Corpuscular Hgb Concent. 34.2 g/dL (32.3-36.5); Mean Platelet Volume 9.1 fL (9.4-12.4); Monocyte (Absolute #) 0.53 x10^3/uL (0.30-0.82); Monocytes % 7.9 % (5.3-12.2); Platelet Count 186 x10^3/uL (163-337); Red Blood Count 4.15 x10^6/uL (4.63-6.08); Red Cell Distribution Width 13.3 % (11.6-14.4); White Blood Count 6.7 x10^3/uL (4.23-9.07)
--- NOTE | 2024-04-17 05:01 | PCM.NOTE ---
Date and Time: 04/17/24 0500 Subjective Assessment: is a 88 year old male with a pmhx of CAD, HLD, HTN, DMII, and BPH presented to ED 04/16/24 for evaluation of generalized weakness. Patient reports that he has had progressive BLE weakness for about a week now and today felt like his legs were going to give out. He denies headache, numbness to face, confusion, trouble speaking, dysphagia, dizziness, vision troubles, unsteady gait, slurred speech, weakness to upper extremities. No recent illness or sick contacts. No other voiced complaints. Upon arrival to ED mildly tachcardic, afebrile, and spo2 at 95% on RA. Lab findings remarkable for hyponatremia in the setting of hyperglycemia with a UA suspicious for infection. Patient given ceftriaxone and IVF in ED. Admit for UTI and generalized weakness. Plan for continued IV abx with PT evaluation. Objective Data Vital Signs: Vital Signs - 24 hr Temp Pulse Resp BP BP Pulse Ox 04/17/24 04:00 97.5 F 78 16 132/80 94 L 04/17/24 00:00 82 19 95 04/16/24 19:31 97.5 F 92 H 18 115/71 96 04/16/24 17:23 80 130/84 04/16/24 16:00 98 F 88 20 152/78 95 04/16/24 12:25 96.9 F 90 18 138/88 94 L 04/16/24 12:22 88 04/16/24 11:00 86 14 107/75 95 04/16/24 10:30 90 16 98 04/16/24 10:00 91 H 19 117/65 04/16/24 09:30 95 H 19 107/73 95 04/16/24 09:09 98 04/16/24 09:00 99 H 7 L 129/82 96 04/16/24 08:50 97.2 F 108 H 16 129/82 95 Pain Assessment - Last Documented Pain Intensity 0 Intake and Output: Intake & Output 04/14/24 04/15/24 04/16/24 04/17/24 11:59 11:59 11:59 11:59 Intake Total 1440 Output Total 750 Balance 690 Weight 82.4 kg 0 g Lab Results: Lab Results-Last 24 Hours 04/16/24 04/16/24 04/16/24 Range/Units 08:54 08:54 08:54 WBC 9.0 (4.23-9.07) x10^3/uL RBC 4.35 L (4.63-6.08) x10^6/uL Hgb 14.7 (13.7-17.5) g/dL Hct 42.2 (40.1-51.0) % MCV 97.0 H (79.0-92.2) fL MCH 33.8 H (25.7-32.2) pg MCHC 34.8 (32.3-36.5) g/dL RDW 12.9 (11.6-14.4) % Plt Count 203 (163-337) x10^3/uL MPV 9.1 L (9.4-12.4) fL Gran % 76.0 H (34.0-67.9) % Immature Gran % (Auto) 0.4 (0.001-0.429) % Nucleat RBC Rel Count 0.0 (0.00-0.2) % Eos # (Auto) 0.10 (0.04-0.54) x10^3/uL Immature Gran # (Auto) 0.04 H (0.001-0.031) x10^3u/L Absolute Lymphs (auto) 1.47 (1.32-3.57) x10^3/uL Absolute Monos (auto) 0.48 (0.30-0.82) x10^3/uL Absolute Nucleated RBC 0.00 (0.00-0.012) x10^3u/L Lymphocytes % 16.4 L (21.8-53.1) % Monocytes % 5.3 (5.3-12.2) % Eosinophils % 1.1 (0.8-7.0) % Basophils % 0.8 (0.2-1.2) % Absolute Granulocytes 6.82 H (1.78-5.38) x10^3/uL Basophils # 0.07 (0.01-0.08) x10^3/uL Sodium 134 L (135-145) mmol/L Potassium 4.4 (3.5-5.1) mmol/L Chloride 98 (98-107) mmol/L Carbon Dioxide 26 (22-30) mmol/L Anion Gap 13.9 (5-15) MEQ/L BUN 22 H (9-20) mg/dL Creatinine 0.89 (0.66-1.25) mg/dL Estimated GFR 81.9 ML/MIN Glucose 381 H (74-106) mg/dL POC Glucometer (74 to 106) mg/dL Hemoglobin A1c (4.5-6.0) % Calcium 9.8 (8.4-10.2) mg/dL Total Bilirubin 1.00 (0.2-1.3) mg/dL AST 29 (17-59) U/L ALT 24 (0-50) U/L Alkaline Phosphatase 90 (38-126) U/L Troponin I < 0.012 (0.000-0.033) ng/mL Serum Total Protein 6.5 (6.3-8.2) g/dL Albumin 3.9 (3.5-5.0) g/dL TSH 3rd Generation (0.470-4.680) mIU/L Urine Color (Yellow) Urine Appearance (Clear) Urine pH (4.6-8.0) Ur Specific [place] (1.005-1.030) Urine Protein (Negative) Urine Glucose (UA) (Negative) mg/dL Urine Ketones (Negative) Urine Blood (Negative) Urine Nitrite (Negative) Urine Bilirubin (Negative) Urine Urobilinogen (0.2) mg/dL Ur Leukocyte Esterase (Negative) U Hyaline Cast (Auto) (0-2) /LPF Urine Microscopic RBC (0-5) /HPF Urine Microscopic WBC (0-5) /HPF Ur Epithelial Cells (None Seen) /HPF Urine Bacteria (None Seen) /HPF Urine Culture Reflexed (NO) Digoxin (0.8-1.9) ng/mL 04/16/24 04/16/24 04/16/24 Range/Units 08:54 08:55 10:31 WBC (4.23-9.07) x10^3/uL RBC (4.63-6.08) x10^6/uL Hgb (13.7-17.5) g/dL Hct (40.1-51.0) % MCV (79.0-92.2) fL MCH (25.7-32.2) pg MCHC (32.3-36.5) g/dL RDW (11.6-14.4) % Plt Count (163-337) x10^3/uL MPV (9.4-12.4) fL Gran % (34.0-67.9) % Immature Gran % (Auto) (0.001-0.429) % Nucleat RBC Rel Count (0.00-0.2) % Eos # (Auto) (0.04-0.54) x10^3/uL Immature Gran # (Auto) (0.001-0.031) x10^3u/L Absolute Lymphs (auto) (1.32-3.57) x10^3/uL Absolute Monos (auto) (0.30-0.82) x10^3/uL Absolute Nucleated RBC (0.00-0.012) x10^3u/L Lymphocytes % (21.8-53.1) % Monocytes % (5.3-12.2) % Eosinophils % (0.8-7.0) % Basophils % (0.2-1.2) % Absolute Granulocytes (1.78-5.38) x10^3/uL Basophils # (0.01-0.08) x10^3/uL Sodium (135-145) mmol/L Potassium (3.5-5.1) mmol/L Chloride (98-107) mmol/L Carbon Dioxide (22-30) mmol/L Anion Gap (5-15) MEQ/L BUN (9-20) mg/dL Creatinine (0.66-1.25) mg/dL Estimated GFR ML/MIN Glucose (74-106) mg/dL POC Glucometer 355 H (74 to 106) mg/dL Hemoglobin A1c (4.5-6.0) % Calcium (8.4-10.2) mg/dL Total Bilirubin (0.2-1.3) mg/dL AST (17-59) U/L ALT (0-50) U/L Alkaline Phosphatase (38-126) U/L Troponin I (0.000-0.033) ng/mL Serum Total Protein (6.3-8.2) g/dL Albumin (3.5-5.0) g/dL TSH 3rd Generation (0.470-4.680) mIU/L Urine Color Yellow (Yellow) Urine Appearance Clear (Clear) Urine pH 5.0 (4.6-8.0) Ur Specific [place] >=1.030 A (1.005-1.030) Urine Protein Negative (Negative) Urine Glucose (UA) >=1000 A (Negative) mg/dL Urine Ketones 15 A (Negative) Urine Blood Negative (Negative) Urine Nitrite Negative (Negative) Urine Bilirubin Negative (Negative) Urine Urobilinogen 0.2 (0.2) mg/dL Ur Leukocyte Esterase Trace A (Negative) U Hyaline Cast (Auto) 3-5 A (0-2) /LPF Urine Microscopic RBC 0-2 (0-5) /HPF Urine Microscopic WBC 21-50 A (0-5) /HPF Ur Epithelial Cells None Seen (None Seen) /HPF Urine Bacteria None Seen (None Seen) /HPF Urine Culture Reflexed YES (NO) Digoxin < 0.4 L (0.8-1.9) ng/mL 04/16/24 04/16/24 04/16/24 Range/Units 13:10 13:10 13:10 WBC (4.23-9.07) x10^3/uL RBC (4.63-6.08) x10^6/uL Hgb (13.7-17.5) g/dL Hct (40.1-51.0) % MCV (79.0-92.2) fL MCH (25.7-32.2) pg MCHC (32.3-36.5) g/dL RDW (11.6-14.4) % Plt Count (163-337) x10^3/uL MPV (9.4-12.4) fL Gran % (34.0-67.9) % Immature Gran % (Auto) (0.001-0.429) % Nucleat RBC Rel Count (0.00-0.2) % Eos # (Auto) (0.04-0.54) x10^3/uL Immature Gran # (Auto) (0.001-0.031) x10^3u/L Absolute Lymphs (auto) (1.32-3.57) x10^3/uL Absolute Monos (auto) (0.30-0.82) x10^3/uL Absolute Nucleated RBC (0.00-0.012) x10^3u/L Lymphocytes % (21.8-53.1) % Monocytes % (5.3-12.2) % Eosinophils % (0.8-7.0) % Basophils % (0.2-1.2) % Absolute Granulocytes (1.78-5.38) x10^3/uL Basophils # (0.01-0.08) x10^3/uL Sodium (135-145) mmol/L Potassium (3.5-5.1) mmol/L Chloride (98-107) mmol/L Carbon Dioxide (22-30) mmol/L Anion Gap (5-15) MEQ/L BUN (9-20) mg/dL Creatinine (0.66-1.25) mg/dL Estimated GFR ML/MIN Glucose (74-106) mg/dL POC Glucometer (74 to 106) mg/dL Hemoglobin A1c 8.48 H (4.5-6.0) % Calcium (8.4-10.2) mg/dL Total Bilirubin (0.2-1.3) mg/dL AST (17-59) U/L ALT (0-50) U/L Alkaline Phosphatase (38-126) U/L Troponin I < 0.012 (0.000-0.033) ng/mL Serum Total Protein (6.3-8.2) g/dL Albumin (3.5-5.0) g/dL TSH 3rd Generation 0.482 (0.470-4.680) mIU/L Urine Color (Yellow) Urine Appearance (Clear) Urine pH (4.6-8.0) Ur Specific [place] (1.005-1.030) Urine Protein (Negative) Urine Glucose (UA) (Negative) mg/dL Urine Ketones (Negative) Urine Blood (Negative) Urine Nitrite (Negative) Urine Bilirubin (Negative) Urine Urobilinogen (0.2) mg/dL Ur Leukocyte Esterase (Negative) U Hyaline Cast (Auto) (0-2) /LPF Urine Microscopic RBC (0-5) /HPF Urine Microscopic WBC (0-5) /HPF Ur Epithelial Cells (None Seen) /HPF Urine Bacteria (None Seen) /HPF Urine Culture Reflexed (NO) Digoxin (0.8-1.9) ng/mL 04/16/24 04/16/24 04/16/24 Range/Units 15:40 17:10 21:09 WBC (4.23-9.07) x10^3/uL RBC (4.63-6.08) x10^6/uL Hgb (13.7-17.5) g/dL Hct (40.1-51.0) % MCV (79.0-92.2) fL MCH (25.7-32.2) pg MCHC (32.3-36.5) g/dL RDW (11.6-14.4) % Plt Count (163-337) x10^3/uL MPV (9.4-12.4) fL Gran % (34.0-67.9) % Immature Gran % (Auto) (0.001-0.429) % Nucleat RBC Rel Count (0.00-0.2) % Eos # (Auto) (0.04-0.54) x10^3/uL Immature Gran # (Auto) (0.001-0.031) x10^3u/L Absolute Lymphs (auto) (1.32-3.57) x10^3/uL Absolute Monos (auto) (0.30-0.82) x10^3/uL Absolute Nucleated RBC (0.00-0.012) x10^3u/L Lymphocytes % (21.8-53.1) % Monocytes % (5.3-12.2) % Eosinophils % (0.8-7.0) % Basophils % (0.2-1.2) % Absolute Granulocytes (1.78-5.38) x10^3/uL Basophils # (0.01-0.08) x10^3/uL Sodium (135-145) mmol/L Potassium (3.5-5.1) mmol/L Chloride (98-107) mmol/L Carbon Dioxide (22-30) mmol/L Anion Gap (5-15) MEQ/L BUN (9-20) mg/dL Creatinine (0.66-1.25) mg/dL Estimated GFR ML/MIN Glucose (74-106) mg/dL POC Glucometer 194 H 162 H (74 to 106) mg/dL Hemoglobin A1c (4.5-6.0) % Calcium (8.4-10.2) mg/dL Total Bilirubin (0.2-1.3) mg/dL AST (17-59) U/L ALT (0-50) U/L Alkaline Phosphatase (38-126) U/L Troponin I < 0.012 (0.000-0.033) ng/mL Serum Total Protein (6.3-8.2) g/dL Albumin (3.5-5.0) g/dL TSH 3rd Generation (0.470-4.680) mIU/L Urine Color (Yellow) Urine Appearance (Clear) Urine pH (4.6-8.0) Ur Specific [place] (1.005-1.030) Urine Protein (Negative) Urine Glucose (UA) (Negative) mg/dL Urine Ketones (Negative) Urine Blood (Negative) Urine Nitrite (Negative) Urine Bilirubin (Negative) Urine Urobilinogen (0.2) mg/dL Ur Leukocyte Esterase (Negative) U Hyaline Cast (Auto) (0-2) /LPF Urine Microscopic RBC (0-5) /HPF Urine Microscopic WBC (0-5) /HPF Ur Epithelial Cells (None Seen) /HPF Urine Bacteria (None Seen) /HPF Urine Culture Reflexed (NO) Digoxin (0.8-1.9) ng/mL 04/17/24 Range/Units 04:40 WBC 6.7 (4.23-9.07) x10^3/uL RBC 4.15 L (4.63-6.08) x10^6/uL Hgb 13.8 (13.7-17.5) g/dL Hct 40.4 (40.1-51.0) % MCV 97.3 H (79.0-92.2) fL MCH 33.3 H (25.7-32.2) pg MCHC 34.2 (32.3-36.5) g/dL RDW 13.3 (11.6-14.4) % Plt Count 186 (163-337) x10^3/uL MPV 9.1 L (9.4-12.4) fL Gran % 54.0 (34.0-67.9) % Immature Gran % (Auto) 0.1 (0.001-0.429) % Nucleat RBC Rel Count 0.0 (0.00-0.2) % Eos # (Auto) 0.12 (0.04-0.54) x10^3/uL Immature Gran # (Auto) 0.01 (0.001-0.031) x10^3u/L Absolute Lymphs (auto) 2.37 (1.32-3.57) x10^3/uL Absolute Monos (auto) 0.53 (0.30-0.82) x10^3/uL Absolute Nucleated RBC 0.00 (0.00-0.012) x10^3u/L Lymphocytes % 35.3 (21.8-53.1) % Monocytes % 7.9 (5.3-12.2) % Eosinophils % 1.8 (0.8-7.0) % Basophils % 0.9 (0.2-1.2) % Absolute Granulocytes 3.62 (1.78-5.38) x10^3/uL Basophils # 0.06 (0.01-0.08) x10^3/uL Sodium (135-145) mmol/L Potassium (3.5-5.1) mmol/L Chloride (98-107) mmol/L Carbon Dioxide (22-30) mmol/L Anion Gap (5-15) MEQ/L BUN (9-20) mg/dL Creatinine (0.66-1.25) mg/dL Estimated GFR ML/MIN Glucose (74-106) mg/dL POC Glucometer (74 to 106) mg/dL Hemoglobin A1c (4.5-6.0) % Calcium (8.4-10.2) mg/dL Total Bilirubin (0.2-1.3) mg/dL AST (17-59) U/L ALT (0-50) U/L Alkaline Phosphatase (38-126) U/L Troponin I (0.000-0.033) ng/mL Serum Total Protein (6.3-8.2) g/dL Albumin (3.5-5.0) g/dL TSH 3rd Generation (0.470-4.680) mIU/L Urine Color (Yellow) Urine Appearance (Clear) Urine pH (4.6-8.0) Ur Specific [place] (1.005-1.030) Urine Protein (Negative) Urine Glucose (UA) (Negative) mg/dL Urine Ketones (Negative) Urine Blood (Negative) Urine Nitrite (Negative) Urine Bilirubin (Negative) Urine Urobilinogen (0.2) mg/dL Ur Leukocyte Esterase (Negative) U Hyaline Cast (Auto) (0-2) /LPF Urine Microscopic RBC (0-5) /HPF Urine Microscopic WBC (0-5) /HPF Ur Epithelial Cells (None Seen) /HPF Urine Bacteria (None Seen) /HPF Urine Culture Reflexed (NO) Digoxin (0.8-1.9) ng/mL Radiology Exams: Radiology Procedures Category Date Time Status CHEST 1 VIEW (PORTABLE) Stat Exams 04/16/24 13:01 Completed Assessment/Plan (1) Urinary tract infection Current Visit: Yes Status: Acute Qualifiers: Assessment & Plan: -UA reviewed and suspicious for infection, ceftriaxone initiated in ED, will continue Code(s): N39.0 - URINARY TRACT INFECTION, SITE NOT SPECIFIED (2) Generalized weakness Current Visit: Yes Status: Acute Assessment & Plan: -Could be multifactorial with UTI and hyperglycemia -PT eval -cxr 04/17: -CXR with no acute findings Code(s): R53.1 - WEAKNESS (3) Hyperglycemia Current Visit: Yes Status: Acute Assessment & Plan: -Reviewed previous A1c from 11/01/23 showing poor control at 8.23 -Will recheck A1c -Could be secondary to infection -SSI/ADA diet 04/17: A1c at 8.48 -Blood glucose levels reviewed and improving Code(s): R73.9 - HYPERGLYCEMIA, UNSPECIFIED (4) Hyponatremia Current Visit: Yes Status: Acute Assessment & Plan: -In the setting hyperglycemia -correct sodium 138 04/17: -Sodium level reviewed and resolved Code(s): E87.1 - HYPO-OSMOLALITY AND HYPONATREMIA (5) Type 2 diabetes mellitus Current Visit: Yes Status: Acute Assessment & Plan: -ADA diet -SSI/glargine -a1c 04/17: -A1c at 8.48 (6) HLD (hyperlipidemia) Current Visit: Yes Status: Acute Assessment & Plan: -continue statin Code(s): E78.5 - HYPERLIPIDEMIA, UNSPECIFIED (7) HTN (hypertension) Current Visit: Yes Status: Acute Assessment & Plan: -stable, continue home meds Code(s): I10 - ESSENTIAL (PRIMARY) HYPERTENSION (8) CAD (coronary artery disease) Current Visit: No Status: Acute Assessment & Plan: -Reviewed echo from 05/17/23 EF estimated at 55-60% 1) NORMAL CONTRACTILITY OF THE LEFT VENTRICLE. 2) MODERATE LEFT ATRIAL DILATATION. 3) MILD TRICUSPID REGURGITATION. 4) TRACE AMOUNT OF PULMONIC REGURGITATION. -trops x 1 negative -continue home meds VTE: Lovenox PPI: protonix Dispo: 1-2 days Code status: SCO Code(s): N39.0 - URINARY TRACT INFECTION, SITE NOT SPECIFIED (2) Generalized weakness Current Visit: Yes Status: Acute Code(s): R53.1 - WEAKNESS (3) Hyperglycemia Current Visit: Yes Status: Acute Code(s): R73.9 - HYPERGLYCEMIA, UNSPECIFIED (4) Hyponatremia Current Visit: Yes Status: Acute Code(s): E87.1 - HYPO-OSMOLALITY AND HYPONATREMIA (5) Type 2 diabetes mellitus Current Visit: Yes Status: Acute (6) HLD (hyperlipidemia) Current Visit: Yes Status: Acute Code(s): E78.5 - HYPERLIPIDEMIA, UNSPECIFIED (7) HTN (hypertension) Current Visit: Yes Status: Acute Code(s): I10 - ESSENTIAL (PRIMARY) HYPERTENSION (8) CAD (coronary artery disease) Current Visit: No Status: Acute Code(s): I25.10 - ATHSCL HEART DISEASE OF [place] CORONARY ARTERY W/O ANG PCTRS
[2024-04-17 05:06] LABS: ALBUMIN 3.6 g/dL (3.5-5.0); ANION GAP 9.4 MEQ/L (5-15); BILIRUBIN,TOTAL 0.5 mg/dL (0.2-1.3); Calcium 9.1 mg/dL (8.4-10.2); Creatinine 1 0.85 mg/dL (0.66-1.25); EST GLOMERULAR FILTRATION RATE 83.1 ML/MIN; Potassium 3.9 mmol/L (3.5-5.1); Total Protein 6.2 g/dL (6.3-8.2)
[2024-04-17 07:33] VITALS: O2SAT 92
[2024-04-17] MEDS: ROCEPHIN 1 GM / 100 ML NaCl 1 GM/100 ML IVPB IV SCH (09:07)
--- NOTE | 2024-04-17 10:32 | PCM.DS ---
Discharge Summary Date of Admission: 04/16/24 12:14 Date of Discharge: 04/17/24 Admitting Physician: LIZ WOOD MD Primary Care Provider: ROWENA VIEYRA Allergies Allergies No Known Drug Allergies Allergy (Verified 02/25/23 19:25) Hospital Summary - Hospital Course Hospital Course: is a 88 year old male with a pmhx of CAD, HLD, HTN, DMII, and BPH presented to ED 04/16/24 for evaluation of generalized weakness. Patient reports that he has had progressive BLE weakness for about a week now and today felt like his legs were going to give out. He denies headache, numbness to face, confusion, trouble speaking, dysphagia, dizziness, vision troubles, unsteady gait, slurred speech, weakness to upper extremities. No recent illness or sick contacts. No other voiced complaints. Upon arrival to ED mildly tachcardic, afebrile, and spo2 at 95% on RA. Lab findings remarkable for hyponatremia in the setting of hyperglycemia with a UA suspicious for infection. Patient given ceftriaxone and IVF in ED. Admit for UTI and generalized weakness. Plan for continued IV abx with PT evaluation. Patient to work with PT as op- declines IP rehab. Will dismiss with cefdinir for UTI. Will have CM look into help with cost of diabetic medications as has not been taking as prescribed as he is afraid of running out before insurance picks back up again. Discussed the importance of good glycemic control and how this may be attributing to current symptoms. Patient would like to discuss medication changes with his PCP Dr. Vieyra. Discharge Note New Diagnosis: UTI/ Weakness New Medications: Cefdinir Follow Up: PCP Results pending: Ucult Latest Assessment & Plan (1) Urinary tract infection Current Visit: Yes Status: Acute Qualifiers: Assessment & Plan: -UA reviewed and suspicious for infection, ceftriaxone initiated in ED, will continue Code(s): N39.0 - URINARY TRACT INFECTION, SITE NOT SPECIFIED (2) Generalized weakness Current Visit: Yes Status: Acute Assessment & Plan: -Could be multifactorial with UTI and hyperglycemia -PT eval -cxr 04/17: -CXR with no acute findings Code(s): R53.1 - WEAKNESS (3) Hyperglycemia Current Visit: Yes Status: Acute Assessment & Plan: -Reviewed previous A1c from 11/01/23 showing poor control at 8.23 -Will recheck A1c -Could be secondary to infection -SSI/ADA diet 04/17: A1c at 8.48 -Blood glucose levels reviewed and improving Code(s): R73.9 - HYPERGLYCEMIA, UNSPECIFIED (4) Hyponatremia Current Visit: Yes Status: Acute Assessment & Plan: -In the setting hyperglycemia -correct sodium 138 04/17: -Sodium level reviewed and resolved Code(s): E87.1 - HYPO-OSMOLALITY AND HYPONATREMIA (5) Type 2 diabetes mellitus Current Visit: Yes Status: Acute Assessment & Plan: -ADA diet -SSI/glargine -a1c 04/17: -A1c at 8.48 (6) HLD (hyperlipidemia) Current Visit: Yes Status: Acute Assessment & Plan: -continue statin Code(s): E78.5 - HYPERLIPIDEMIA, UNSPECIFIED (7) HTN (hypertension) Current Visit: Yes Status: Acute Assessment & Plan: -stable, continue home meds Code(s): I10 - ESSENTIAL (PRIMARY) HYPERTENSION (8) CAD (coronary artery disease) Current Visit: No Status: Acute Assessment & Plan: -Reviewed echo from 05/17/23 EF estimated at 55-60% 1) NORMAL CONTRACTILITY OF THE LEFT VENTRICLE. 2) MODERATE LEFT ATRIAL DILATATION. 3) MILD TRICUSPID REGURGITATION. 4) TRACE AMOUNT OF PULMONIC REGURGITATION. -trops x 1 negative -continue home meds VTE: Lovenox PPI: protonix Dispo: 1-2 days Code status: SCO I spent 35 minutes [id number] with the patient on the day of discharge performing discharge exam, discussing hospital stay and discharge instructions with patient and caregivers, preparation of discharge records, prescriptions & referral forms and addressing any questions/concerns the patient had as docum ented above. - Vitals & Intake/Output Vital Signs: Vital Signs Temperature 97.7 F 04/17/24 07:32 Pulse Rate 59 L 04/17/24 09:08 Respiratory Rate 16 04/17/24 07:32 Blood Pressure 130/84 04/17/24 09:08 O2 Sat by Pulse Oximetry 92 L 04/17/24 07:32 Intake & Output: Intake & Output 04/14/24 04/15/24 04/16/24 04/17/24 11:59 11:59 11:59 11:59 Intake Total 1590 Output Total 875 Balance 715 Weight 82.4 kg 0 g - Lab Result Diagrams: 04/17/24 04:40 04/17/24 04:40 Lab Results-Last 24 Hrs: Lab Results-Last 24 Hours 04/16/24 04/16/24 04/16/24 Range/Units 10:31 13:10 13:10 WBC (4.23-9.07) x10^3/uL RBC (4.63-6.08) x10^6/uL Hgb (13.7-17.5) g/dL Hct (40.1-51.0) % MCV (79.0-92.2) fL MCH (25.7-32.2) pg MCHC (32.3-36.5) g/dL RDW (11.6-14.4) % Plt Count (163-337) x10^3/uL MPV (9.4-12.4) fL Gran % (34.0-67.9) % Immature Gran % (Auto) (0.001-0.429) % Nucleat RBC Rel Count (0.00-0.2) % Eos # (Auto) (0.04-0.54) x10^3/uL Immature Gran # (Auto) (0.001-0.031) x10^3u/L Absolute Lymphs (auto) (1.32-3.57) x10^3/uL Absolute Monos (auto) (0.30-0.82) x10^3/uL Absolute Nucleated RBC (0.00-0.012) x10^3u/L Lymphocytes % (21.8-53.1) % Monocytes % (5.3-12.2) % Eosinophils % (0.8-7.0) % Basophils % (0.2-1.2) % Absolute Granulocytes (1.78-5.38) x10^3/uL Basophils # (0.01-0.08) x10^3/uL Sodium (135-145) mmol/L Potassium (3.5-5.1) mmol/L Chloride (98-107) mmol/L Carbon Dioxide (22-30) mmol/L Anion Gap (5-15) MEQ/L BUN (9-20) mg/dL Creatinine (0.66-1.25) mg/dL Estimated GFR ML/MIN Glucose (74-106) mg/dL POC Glucometer (74 to 106) mg/dL Hemoglobin A1c (4.5-6.0) % Calcium (8.4-10.2) mg/dL Total Bilirubin (0.2-1.3) mg/dL AST (17-59) U/L ALT (0-50) U/L Alkaline Phosphatase (38-126) U/L Troponin I < 0.012 (0.000-0.033) ng/mL Serum Total Protein (6.3-8.2) g/dL Albumin (3.5-5.0) g/dL TSH 3rd Generation 0.482 (0.470-4.680) mIU/L Urine Color Yellow (Yellow) Urine Appearance Clear (Clear) Urine pH 5.0 (4.6-8.0) Ur Specific [place] >=1.030 A (1.005-1.030) Urine Protein Negative (Negative) Urine Glucose (UA) >=1000 A (Negative) mg/dL Urine Ketones 15 A (Negative) Urine Blood Negative (Negative) Urine Nitrite Negative (Negative) Urine Bilirubin Negative (Negative) Urine Urobilinogen 0.2 (0.2) mg/dL Ur Leukocyte Esterase Trace A (Negative) U Hyaline Cast (Auto) 3-5 A (0-2) /LPF Urine Microscopic RBC 0-2 (0-5) /HPF Urine Microscopic WBC 21-50 A (0-5) /HPF Ur Epithelial Cells None Seen (None Seen) /HPF Urine Bacteria None Seen (None Seen) /HPF Urine Culture Reflexed YES (NO) 04/16/24 04/16/24 04/16/24 Range/Units 13:10 15:40 17:10 WBC (4.23-9.07) x10^3/uL RBC (4.63-6.08) x10^6/uL Hgb (13.7-17.5) g/dL Hct (40.1-51.0) % MCV (79.0-92.2) fL MCH (25.7-32.2) pg MCHC (32.3-36.5) g/dL RDW (11.6-14.4) % Plt Count (163-337) x10^3/uL MPV (9.4-12.4) fL Gran % (34.0-67.9) % Immature Gran % (Auto) (0.001-0.429) % Nucleat RBC Rel Count (0.00-0.2) % Eos # (Auto) (0.04-0.54) x10^3/uL Immature Gran # (Auto) (0.001-0.031) x10^3u/L Absolute Lymphs (auto) (1.32-3.57) x10^3/uL Absolute Monos (auto) (0.30-0.82) x10^3/uL Absolute Nucleated RBC (0.00-0.012) x10^3u/L Lymphocytes % (21.8-53.1) % Monocytes % (5.3-12.2) % Eosinophils % (0.8-7.0) % Basophils % (0.2-1.2) % Absolute Granulocytes (1.78-5.38) x10^3/uL Basophils # (0.01-0.08) x10^3/uL Sodium (135-145) mmol/L Potassium (3.5-5.1) mmol/L Chloride (98-107) mmol/L Carbon Dioxide (22-30) mmol/L Anion Gap (5-15) MEQ/L BUN (9-20) mg/dL Creatinine (0.66-1.25) mg/dL Estimated GFR ML/MIN Glucose (74-106) mg/dL POC Glucometer 194 H (74 to 106) mg/dL Hemoglobin A1c 8.48 H (4.5-6.0) % Calcium (8.4-10.2) mg/dL Total Bilirubin (0.2-1.3) mg/dL AST (17-59) U/L ALT (0-50) U/L Alkaline Phosphatase (38-126) U/L Troponin I < 0.012 (0.000-0.033) ng/mL Serum Total Protein (6.3-8.2) g/dL Albumin (3.5-5.0) g/dL TSH 3rd Generation (0.470-4.680) mIU/L Urine Color (Yellow) Urine Appearance (Clear) Urine pH (4.6-8.0) Ur Specific [place] (1.005-1.030) Urine Protein (Negative) Urine Glucose (UA) (Negative) mg/dL Urine Ketones (Negative) Urine Blood (Negative) Urine Nitrite (Negative) Urine Bilirubin (Negative) Urine Urobilinogen (0.2) mg/dL Ur Leukocyte Esterase (Negative) U Hyaline Cast (Auto) (0-2) /LPF Urine Microscopic RBC (0-5) /HPF Urine Microscopic WBC (0-5) /HPF Ur Epithelial Cells (None Seen) /HPF Urine Bacteria (None Seen) /HPF Urine Culture Reflexed (NO) 04/16/24 04/17/24 04/17/24 Range/Units 21:09 04:40 04:40 WBC 6.7 (4.23-9.07) x10^3/uL RBC 4.15 L (4.63-6.08) x10^6/uL Hgb 13.8 (13.7-17.5) g/dL Hct 40.4 (40.1-51.0) % MCV 97.3 H (79.0-92.2) fL MCH 33.3 H (25.7-32.2) pg MCHC 34.2 (32.3-36.5) g/dL RDW 13.3 (11.6-14.4) % Plt Count 186 (163-337) x10^3/uL MPV 9.1 L (9.4-12.4) fL Gran % 54.0 (34.0-67.9) % Immature Gran % (Auto) 0.1 (0.001-0.429) % Nucleat RBC Rel Count 0.0 (0.00-0.2) % Eos # (Auto) 0.12 (0.04-0.54) x10^3/uL Immature Gran # (Auto) 0.01 (0.001-0.031) x10^3u/L Absolute Lymphs (auto) 2.37 (1.32-3.57) x10^3/uL Absolute Monos (auto) 0.53 (0.30-0.82) x10^3/uL Absolute Nucleated RBC 0.00 (0.00-0.012) x10^3u/L Lymphocytes % 35.3 (21.8-53.1) % Monocytes % 7.9 (5.3-12.2) % Eosinophils % 1.8 (0.8-7.0) % Basophils % 0.9 (0.2-1.2) % Absolute Granulocytes 3.62 (1.78-5.38) x10^3/uL Basophils # 0.06 (0.01-0.08) x10^3/uL Sodium 138 (135-145) mmol/L Potassium 3.9 (3.5-5.1) mmol/L Chloride 103 (98-107) mmol/L Carbon Dioxide 29 (22-30) mmol/L Anion Gap 9.4 (5-15) MEQ/L BUN 20 (9-20) mg/dL Creatinine 0.85 (0.66-1.25) mg/dL Estimated GFR 83.1 ML/MIN Glucose 151 H (74-106) mg/dL POC Glucometer 162 H (74 to 106) mg/dL Hemoglobin A1c (4.5-6.0) % Calcium 9.1 (8.4-10.2) mg/dL Total Bilirubin 0.50 (0.2-1.3) mg/dL AST 25 (17-59) U/L ALT 18 (0-50) U/L Alkaline Phosphatase 78 (38-126) U/L Troponin I (0.000-0.033) ng/mL Serum Total Protein 6.2 L (6.3-8.2) g/dL Albumin 3.6 (3.5-5.0) g/dL TSH 3rd Generation (0.470-4.680) mIU/L Urine Color (Yellow) Urine Appearance (Clear) Urine pH (4.6-8.0) Ur Specific [place] (1.005-1.030) Urine Protein (Negative) Urine Glucose (UA) (Negative) mg/dL Urine Ketones (Negative) Urine Blood (Negative) Urine Nitrite (Negative) Urine Bilirubin (Negative) Urine Urobilinogen (0.2) mg/dL Ur Leukocyte Esterase (Negative) U Hyaline Cast (Auto) (0-2) /LPF Urine Microscopic RBC (0-5) /HPF Urine Microscopic WBC (0-5) /HPF Ur Epithelial Cells (None Seen) /HPF Urine Bacteria (None Seen) /HPF Urine Culture Reflexed (NO) 04/17/24 Range/Units 06:56 WBC (4.23-9.07) x10^3/uL RBC (4.63-6.08) x10^6/uL Hgb (13.7-17.5) g/dL Hct (40.1-51.0) % MCV (79.0-92.2) fL MCH (25.7-32.2) pg MCHC (32.3-36.5) g/dL RDW (11.6-14.4) % Plt Count (163-337) x10^3/uL MPV (9.4-12.4) fL Gran % (34.0-67.9) % Immature Gran % (Auto) (0.001-0.429) % Nucleat RBC Rel Count (0.00-0.2) % Eos # (Auto) (0.04-0.54) x10^3/uL Immature Gran # (Auto) (0.001-0.031) x10^3u/L Absolute Lymphs (auto) (1.32-3.57) x10^3/uL Absolute Monos (auto) (0.30-0.82) x10^3/uL Absolute Nucleated RBC (0.00-0.012) x10^3u/L Lymphocytes % (21.8-53.1) % Monocytes % (5.3-12.2) % Eosinophils % (0.8-7.0) % Basophils % (0.2-1.2) % Absolute Granulocytes (1.78-5.38) x10^3/uL Basophils # (0.01-0.08) x10^3/uL Sodium (135-145) mmol/L Potassium (3.5-5.1) mmol/L Chloride (98-107) mmol/L Carbon Dioxide (22-30) mmol/L Anion Gap (5-15) MEQ/L BUN (9-20) mg/dL Creatinine (0.66-1.25) mg/dL Estimated GFR ML/MIN Glucose (74-106) mg/dL POC Glucometer 180 H (74 to 106) mg/dL Hemoglobin A1c (4.5-6.0) % Calcium (8.4-10.2) mg/dL Total Bilirubin (0.2-1.3) mg/dL AST (17-59) U/L ALT (0-50) U/L Alkaline Phosphatase (38-126) U/L Troponin I (0.000-0.033) ng/mL Serum Total Protein (6.3-8.2) g/dL Albumin (3.5-5.0) g/dL TSH 3rd Generation (0.470-4.680) mIU/L Urine Color (Yellow) Urine Appearance (Clear) Urine pH (4.6-8.0) Ur Specific [place] (1.005-1.030) Urine Protein (Negative) Urine Glucose (UA) (Negative) mg/dL Urine Ketones (Negative) Urine Blood (Negative) Urine Nitrite (Negative) Urine Bilirubin (Negative) Urine Urobilinogen (0.2) mg/dL Ur Leukocyte Esterase (Negative) U Hyaline Cast (Auto) (0-2) /LPF Urine Microscopic RBC (0-5) /HPF Urine Microscopic WBC (0-5) /HPF Ur Epithelial Cells (None Seen) /HPF Urine Bacteria (None Seen) /HPF Urine Culture Reflexed (NO) Micro Results-Entire Visit: Accuchecks Date 04/17/24 Date 04/16/24 Date 04/16/24 Time 21:00 Time 16:31 - Radiology Exams Ordered Rad Exams-Entire Visit: Radiology Procedures Category Date Time Status CHEST 1 VIEW (PORTABLE) Stat Exams 04/16/24 13:01 Completed - Procedures and Test Procedures and Tests throughout Hospitalization: Therapy Orders & Screens 04/16/24 13:01 PT Eval & Treat ( Order) ONCE Reason for Eval:: weakness Diagnosis: weakness OT Eval and Treat (MD Order) ONCE Comment: Physician Instructions: Reason For Exam: Diagnosis: weakness Discharge Exam General Appearance: no apparent distress Neurologic Exam: alert, oriented x 3, cooperative Eye Exam: PERRL Ears, Nose, Throat Exam: normal ENT inspection Neck Exam: normal inspection Respiratory Exam: normal breath sounds, lungs clear Cardiovascular Exam: regular rate/rhythm, normal heart sounds Gastrointestinal/Abdomen Exam: soft, normal bowel sounds Male Genitalia Exam: deferred Rectal Exam: deferred Back Exam: normal inspection Extremity Exam: normal inspection Skin Exam: normal color Final Diagnosis/Problem List - Final Discharge Diagnosis/Problem (1) Urinary tract infection Current Visit: Yes Status: Acute Code(s): N39.0 - URINARY TRACT INFECTION, SITE NOT SPECIFIED (2) Generalized weakness Current Visit: Yes Status: Acute Code(s): R53.1 - WEAKNESS (3) Hyperglycemia Current Visit: Yes Status: Acute Code(s): R73.9 - HYPERGLYCEMIA, UNSPECIFIED (4) Hyponatremia Current Visit: Yes Status: Acute Code(s): E87.1 - HYPO-OSMOLALITY AND HYPONATREMIA (5) Type 2 diabetes mellitus Current Visit: Yes Status: Acute (6) HLD (hyperlipidemia) Current Visit: Yes Status: Acute Code(s): E78.5 - HYPERLIPIDEMIA, UNSPECIFIED (7) HTN (hypertension) Current Visit: Yes Status: Acute Code(s): I10 - ESSENTIAL (PRIMARY) HYPERTENSION (8) CAD (coronary artery disease) Current Visit: No Status: Acute Code(s): I25.10 - ATHSCL HEART DISEASE OF [place] CORONARY ARTERY W/O ANG PCTRS - Discharge Discharge Date: 04/17/24 Disposition: HOME HEALTH SERVICE Condition: Stable Prescriptions: New Glipizide/Metformin HCl [Glipizide-Metformin 5-500 mg] 1 each PO TID 30 Days #90 tablet Cefdinir 300 mg PO BID 7 Days #14 cap Continue Atorvastatin Calcium 20 mg PO HS Aspirin EC 81 mg [Ecotrin 81 mg] 81 mg PO DAILY Cholecalciferol (Vitamin D3) [Vitamin D3] 1 tab PO DAILY Carvedilol 3.125 mg [Coreg 3.125 MG] 3.125 mg PO BID Digoxin 125 mcg PO DAILY Clopidogrel Bisulfate [PLAVIX Tablet] 75 mg PO DAILY Empagliflozin [Jardiance] 25 mg PO DAILY Dulaglutide [Trulicity] 3 mg SQ WEEKLY Gabapentin [Neurontin ] 600 mg PO TID Mirabegron [Myrbetriq] 25 mg PO HS Multivitamin 1 tablet PO DAILY Insulin Glargine [Lantus Insulin] 25 units SQ DAILY #750 unit MDD 25 Discontinued Glipizide/Metformin HCl [Glipizide-Metformin 5-500 mg] 1 tablet PO TID Follow up with: ROWENA VIEYRA MD [Primary Care Provider] -
[2024-04-17 11:43] VITALS: BP 103/65; PULSE 90; TEMP 97.2
== END 2024-04-17 12:27 | disposition home or self-care (01) ==
LOC: ED 08:34 → MED SURG 12:14
PROVIDERS: ADMIT Internal Medicine; ATTEND Internal Medicine
DX: N39.0 Urinary tract infection, site not specified (principal); R53.1 Weakness; E11.65 Type 2 diabetes mellitus with hyperglycemia; E87.1 Hypo-osmolality and hyponatremia; E78.5 Hyperlipidemia, unspecified; I10 Essential (primary) hypertension; I25.10 Atherosclerotic heart disease of native coronary artery without angina pectoris; N40.0 Benign prostatic hyperplasia without lower urinary tract symptoms; Z79.899 Other long term (current) drug therapy; Z79.01 Long term (current) use of anticoagulants
CPT/HCPCS: 36000; 36415; 71045; 80053; 80162; 81001; 82947; 83036; 84443; 84484; 85025; 87086; 93005; 93041; 93268; 94760; 96360; 96365; 99285; J0696; J1650; J1817; Q3014; A9270-GY; G0378

== ENCOUNTER 2024-04-23 12:30 | Emergency (ER) | payer MEDICARE ==
[2024-04-23] MEDS ORDERED: MORPHINE SULFATE 4 MG INJ ONE (12:45)
[2024-04-23 12:48] VITALS: RESP 16; TEMP 98; O2SAT 95
[2024-04-23] MEDS: MORPHINE SULFATE 4 MG INJ IM ONE (12:50)
--- NOTE | 2024-04-23 13:21 | ERPHSYRPT ---
- History of Present Illness Time Seen by Provider: 04/23/24 12:45 Source: patient Exam Limitations: no limitations Patient Subjective Stated Complaint: Pt. states, "I fell yesterday into a cabinet beside my bed and it really hurts. I had an x-ray yesterday and never heard back". Triage Nursing Assessment: Pt. presents A&O x4, Skin P/W/D, resp even unlabored, ambulated slowly to room with steady gait. Able to move all 4 extremities. Physician History: 88-year-old male presents to our ED for evaluation. Patient states yesterday he had a mechanical fall into a cabinet. Patient experienced immediate left rib pain. Patient followed up with his primary care doctor who ordered a x-ray. X- ray revealed a left 10th rib fracture. Patient states that he was not informed of the fracture as of yet. Patient was not prescribed pain medication. Patient is here to find out the results of his x-ray and for pain control. No interval falls or injuries. Pain described as an ache that is localized. Pain reproduced with palpation to the involved area. Overlying soft tissue reveals a hematoma. No open or draining lesions. There is no associated BHT or LOC. No neck pain. Cervical spine cleared clinically. Patient otherwise feels well. Patient daughter at bedside. They voiced no other complaints or concerns at this time. Portions of this note were created with voice recognition technology. There may be grammatical, spelling, punctuation or sound alike errors Timing/Duration: yesterday Severity: moderate Associated Symptoms: denies symptoms Allergies/Adverse Reactions: No Known Drug Allergies Allergy (Verified 02/25/23 19:25) Home Medications: Aspirin EC 81 mg [Ecotrin 81 mg] 81 mg PO DAILY 04/25/21 [History] Atorvastatin Calcium 20 mg PO HS 04/25/21 [History] Carvedilol 3.125 mg [Coreg 3.125 MG] 3.125 mg PO BID 04/25/21 [History] Cholecalciferol (Vitamin D3) [Vitamin D3] 1 tab PO DAILY 04/25/21 [History] Clopidogrel Bisulfate [PLAVIX Tablet] 75 mg PO DAILY 04/25/21 [History] Digoxin 125 mcg PO DAILY 04/25/21 [History] Dulaglutide [Trulicity] 3 mg SQ WEEKLY 04/25/21 [History] Empagliflozin [Jardiance] 25 mg PO DAILY 04/25/21 [History] Gabapentin [Neurontin ] 600 mg PO TID 04/25/21 [History] Mirabegron [Myrbetriq] 25 mg PO HS 04/25/21 [History] Multivitamin 1 tablet PO DAILY 04/25/21 [History] Hx Tetanus, Diphtheria Vaccination/Date Given: No Hx Influenza Vaccination/Date Given: Yes Hx Pneumococcal Vaccination/Date Given: Yes Immunizations Up to Date: No Travel Risk - International Travel Have you traveled outside of the country in past 3 weeks: No - Emerging Infectious Disease Are you exhibiting symptoms associated with any current EIDs: No - Review of Systems Constitutional: No Symptoms, No Fever, No Chills Eyes: No Symptoms Ears, Nose, & Throat: No Symptoms Respiratory: No Symptoms, No Cough, No Dyspnea Cardiac: No Symptoms, No Chest Pain, No Edema, No Syncope Abdominal/Gastrointestinal: No Symptoms, No Abdominal Pain, No Nausea, No Vomiting, No Diarrhea Genitourinary Symptoms: No Symptoms, No Dysuria Musculoskeletal: No Symptoms, No Back Pain, No Neck Pain Skin: No Symptoms, No Rash Neurological: No Symptoms, No Dizziness, No Focal Weakness, No Sensory Changes Psychological: No Symptoms Endocrine: No Symptoms Hematologic/Lymphatic: No Symptoms Immunological/Allergic: No Symptoms All Other Systems: Reviewed and Negative - Past Medical History Pertinent Past Medical History: Yes Neurological History: No Pertinent History ENT History: Cataracts Cardiac History: Coronary Artery Disease, High Cholesterol, Hypertension Respiratory History: No Pertinent History Endocrine Medical History: Diabetes Type II Musculoskeletal History: No Pertinent History GI Medical History: No Pertinent History History: No Pertinent History Psycho-Social History: No Pertinent History Male Reproductive Disorders: Prostate Problems Other Medical History: back surgery (discectomy), 5 stents in heart(2014) - Past Surgical History Past Surgical History: Yes Neuro Surgical History: No Pertinent History Cardiac: Cardiac Catheterization, Cardiac Stent Respiratory: No Pertinent History Gastrointestinal: Appendectomy Genitourinary: No Pertinent History Musculoskeletal: Other Male Surgical History: Prostate Surgery Other Surgical History: achilles tendon, back surgery (discectomy), 5 stents in heart(2014) Significant Family History: no pertinent family hx - Social History Smoking Status: Never smoker Exposure to second hand smoke: No Drug Use: none Patient Lives Alone: No - Social Determinants of Health Will the patient participate in the screening: Yes Do you worry about a steady place to live?: No Do you have any problems with any of the following?: No known problems In the past 12 months,have you had to go without utilities?: No Transportation Issues: No Has anyone in your support network made you feel unsafe?: No Have you or anyone in your house had to go without enough: No - Nursing Vital Signs Nursing Vital Signs: Initial Vital Signs Temperature 98.0 F 04/23/24 12:35 Pulse Rate 116 H 04/23/24 12:35 Respiratory Rate 16 04/23/24 12:35 Blood Pressure 156/98 04/23/24 12:35 O2 Sat by Pulse Oximetry 95 04/23/24 12:35 Pain Scale Pain Intensity 10 - Physical Exam General Appearance: no apparent distress, alert Eye Exam: PERRL/EOMI, eyes nml inspection Ears, Nose, Throat Exam: normal ENT inspection, TMs normal, pharynx normal, moist mucous membranes Neck Exam: normal inspection, non-tender, supple, full range of motion Respiratory Exam: normal breath sounds, lungs clear, airway intact, other (Tenderness to palpation over left rib 9 and 10. There is a overlying bruise. There is a abrasion overlying the injury as well.. No superimposed cellulitis. ), No respiratory distress Cardiovascular Exam: regular rate/rhythm, normal heart sounds, normal peripheral pulses Gastrointestinal/Abdomen Exam: soft, normal bowel sounds, No tenderness, No mass Back Exam: normal inspection, normal range of motion, No CVA tenderness, No vertebral tenderness Extremity Exam: normal inspection, normal range of motion, pelvis stable Neurologic Exam: alert, oriented x 3, cooperative, normal mood/affect, nml cerebellar function, nml station & gait, sensation nml, No motor deficits Skin Exam: normal color, warm, dry, No rash Lymphatic Exam: No adenopathy SpO2 Interpretation: normal SpO2: 95 O2 Delivery: Room Air - Course Nursing assessment & vital signs reviewed: Yes Ordered Tests: Active Orders 24 hr Category Date Time Status Incentive Spirometry UD RT 04/23/24 12:51 Active Medication Summary Discontinued Medications Generic Name Dose Route Start Last Admin Trade Name Freq PRN Reason Stop Dose Admin Morphine Sulfate 4 mg 04/23/24 12:44 04/23/24 12:50 Morphine Sulfate 4 Mg/Ml Injection IM 04/23/24 12:45 4 mg STAT ONE Administration Morphine Sulfate Confirm 04/23/24 12:45 Morphine Sulfate 4 Mg/Ml Injection Administered 04/23/24 12:46 Dose 4 mg .ROUTE .STK-MED ONE - Progress Progress: improved Progress Note: 88-year-old male status post fall which occurred yesterday. Patient fell into a cabinet and injured his left rib. Patient followed up with his primary care doctor who ordered a x-ray of his ribs. Patient here as he has not received the results and requesting pain control We contacted Dr. Sherman's office as a courtesy since they initiated the workup. Dr. Sherman not immediately available. Dr. Julio walker. RN spoke to Dr. Kim at approximately 1 PM. She advised a Lidoderm patch. She also advised to follow-up in about a week's time. We establish a follow-up appointment with Dr. Sherman for May 06 at 10:45 PM we will also provide patient with an incentive spirometer. [id number] analgesics as needed. Patient received 4 mg morphine IM once in our ED for the acute pain. Daughter at bedside. Incentive spirometer provided to patient. Patient trained and instructed on its use. Plan of care discussed with patient and daughter. They agree to follow-up as planned. They voiced no other complaints or concerns at this time. Portions of this note were created with voice recognition technology. There may be grammatical, spelling, punctuation or sound alike errors Complexity of problem addressed is moderate acute complicated no critical care time. Complex of data reviewed and analyzed is moderate. Test ordered chest reviewed results analyzed and correlated clinically with history and physical exam. Risk of complication and or risk of morbidity/mortality patient management is moderate. Patient received IM morphine for acute pain control. Patient observed pain improved. Vital stable. Time spent to discharge patient is approximately 15 minutes. Plan of care established for shared decision making. No social determinants of health present to impede follow-up. Portions of this note were created with voice recognition technology. There may be grammatical, spelling, punctuation or sound alike errors 04/23/24 13:18 - Departure Departure Disposition: Home Clinical Impression: 10th rib fracture left, Fall Condition: Stable Critical Care Time: No Referrals: ROWENA SHERMAN MD [Primary Care Provider] - Follow up/PCP as directed Additional Instructions: Please follow-up with Dr. Sherman on May 06 at 10:45 AM. The appointment has already been scheduled for you. Use the incentive spirometer as instructed. Discharge/Care Plan BURTON REYES was seen on 04/23/24 in the Emergency Room. The patient was counseled regarding Diagnosis,Lab results, Imaging studies, need for follow up and when to return to the Emergency Room. Prescriptions given: Discharge Note I have spoken with the patient and/or caregivers. I have explained the patient's condition, diagnosis and treatment plan based on the information available to me at this time. I have answered the patient's and/or caregiver's questions and addressed any concerns. The patient and/or caregivers have as good understanding of the patient's diagnosis, condition and treatment plan as can be expected at this point. The vital signs have been stable. The patient's condition is stable and appropriate for discharge from the emergency department. The patient will pursue further outpatient evaluation with the primary care physician or other designated or consulting physician as outlined in the discharge instructions. The patient and/or caregivers are agreeable to this plan of care and follow-up instructions have been explained in detail. The patient and/or caregivers have received these instruction. The patient/and or caregivers are aware that any significant change in condition or worsening of symptoms should prompt an immediate return to this or the closest emergency department or call 911.
[2024-04-23 13:40] VITALS: BP 129/83; PULSE 96
== END 2024-04-23 13:48 | disposition home or self-care (01) ==
LOC: ED 12:30
DX: S22.32XA Fracture of one rib, left side, initial encounter for closed fracture (principal); W18.30XA Fall on same level, unspecified, initial encounter
CPT/HCPCS: 96372; 99282; 99283; J2270

== ENCOUNTER 2024-05-20 09:48 | Emergency (ER) | payer MEDICARE ==
[2024-05-20 13:25] VITALS: TEMP 96.9; O2SAT 95
[2024-05-20 14:21] LABS: Absolute Neutrophil Ct (ANC) 4.59 x10^3/uL (1.78-5.38); BASOPHIL % 0.8 % (0.2-1.2); Basophil (Absolute #) 0.06 x10^3/uL (0.01-0.08); Eosinophil % 1.8 % (0.8-7.0); Eosinophil (Absolute #) 0.14 x10^3/uL (0.04-0.54); Hematocrit 41.6 % (40.1-51.0); Hemoglobin 14.1 g/dL (13.7-17.5); IMMATURE GRAN # 0.04 x10^3u/L (0.001-0.031); IMMATURE GRAN % 0.5 % (0.001-0.429); Lymphocyte (Absolute #) 2.52 x10^3/uL (1.32-3.57); Lymphocytes % 31.9 % (21.8-53.1); Mean Cell Volume 97.4 fL (79.0-92.2); Mean Corpuscular Hgb Concent. 33.9 g/dL (32.3-36.5); Monocyte (Absolute #) 0.55 x10^3/uL (0.30-0.82); Platelet Count 193 x10^3/uL (163-337); Red Blood Count 4.27 x10^6/uL (4.63-6.08); Red Cell Distribution Width 13.1 % (11.6-14.4); White Blood Count 7.9 x10^3/uL (4.23-9.07)
[2024-05-20] MEDS ORDERED: ANTIVERT 25 MG ONE (14:29)
[2024-05-20] MEDS: ANTIVERT 25 MG PO ONE (14:29)
[2024-05-20] MEDS ORDERED: Sodium Chloride 0.9% 500 ML 500 ML IV ONE (14:29)
[2024-05-20] MEDS: Sodium Chloride 0.9% 500 ML 500 ML IV ONE (14:30)
[2024-05-20 14:45] LABS: NT PRO BNPII 118 pg/mL (<300); TROPONIN < 0.012 ng/mL (0.000-0.033)
--- NOTE | 2024-05-20 14:58 | XRAY ---
Indication: Dizziness. Multiple contiguous axial images obtained through the head without contrast. Comparison: December 15, 2023 Stable age-appropriate global atrophy, minimal periventricular degenerative micro-ischemia, and remote lacunar infarct right basal ganglia. Again no acute intracranial hemorrhage, abnormal extra-axial fluid collection, or mass effect. Fourth ventricle is midline without hydrocephalus. Bony calvarium intact. Visualized paranasal sinuses and mastoid air cells are clear. Impression: Again nonacute senile brain with remote lacunar infarct right basal ganglia.
--- NOTE | 2024-05-20 15:00 | XRAY ---
Indication: Pneumonia. Comparison: April 16, 2024 Portable chest is now underinflated without focal infiltrate, consolidation, or large effusion. Heart not enlarged again with incidental hilar calcified nodes. Bony thorax intact again with osteopenia, mild degenerative changes, and old right rib fractures. Impression: Underinflated chest with again chronic features.
[2024-05-20 15:10] LABS: INFLUENZA A NEGATIVE (NEGATIVE); INFLUENZA B NEGATIVE (NEGATIVE); RESPIRATORY SYNCTIAL VIRUS NEGATIVE (NEGATIVE); SARS-CoV-2 Xpert Express NEGATIVE (NEGATIVE)
[2024-05-20 15:20] LABS: ALBUMIN 3.9 g/dL (3.5-5.0); BILIRUBIN,TOTAL 0.5 mg/dL (0.2-1.3); Calcium 9.6 mg/dL (8.4-10.2); Creatinine 1 0.74 mg/dL (0.66-1.25); EST GLOMERULAR FILTRATION RATE 86.6 ML/MIN; Potassium 4.2 mmol/L (3.5-5.1); Total Protein 6.7 g/dL (6.3-8.2)
[2024-05-20 15:25] LABS: Appearance Clear (Clear); Bacteria None Seen /HPF (None Seen); Bilirubin Negative (Negative); Blood Negative (Negative); Epithelial Cells Rare /HPF (None Seen); Glucose, Urine Negative (Negative); Hyaline Casts NONE SEEN /LPF (0-2); Ketones Trace (Negative); Leukocyte Esterase Negative (Negative); Nitrite Negative (Negative); Protein,Urine Dip Negative (Negative); RBC 0-2 /HPF (0-5); Specific Gravity >=1.030 (1.005-1.030); Urobilinogen 0.2 mg/dL (0.2)
--- NOTE | 2024-05-20 15:48 | ERPHSYRPT ---
- History of Present Illness Time Seen by Provider: 05/20/24 13:21 Source: patient, family Exam Limitations: no limitations Patient Subjective Stated Complaint: Wellness Triage Nursing Assessment: Patient brought back to ED per w/c and transferred to bed with assist of 1. Patient A+O X3. Patient 's skin pink, warm and dry. Patient complains of unable to hear out of lalo ears, but the right is worse. Patient does wear hearing aids to lalo ears and still is unable to hear well. Patient states he is having balance problems since this started. Patient denies pain or discomfort. Patient also reports the top of his head feeling "funny", but doesn't hurt. Physician History: Patient arrives with right ear pain. Stated that he has been having some balance problems since this started. No pain or discomfort, chest pain. Does report a "funny" feeling on the top of his head. He has no head pain or falls. His family states that he has been slightly off balance since his ear pain started. However he denies any acute dizziness, vertigo, severe headache, new or different headaches. Patient is taking PO well. Same number of urinations and defecations. The patient has no signs of altered mental status, nuchal rig idity, signs of meningitis. The patient is up-to-date on all vaccinations. Allergies/Adverse Reactions: No Known Drug Allergies Allergy (Verified 05/20/24 13:18) Home Medications: Aspirin EC 81 mg [Ecotrin 81 mg] 81 mg PO DAILY 04/25/21 [History] Atorvastatin Calcium 20 mg PO HS 04/25/21 [History] Carvedilol 3.125 mg [Coreg 3.125 MG] 3.125 mg PO BID 04/25/21 [History] Cholecalciferol (Vitamin D3) [Vitamin D3] 1 tab PO DAILY 04/25/21 [History] Clopidogrel Bisulfate [PLAVIX Tablet] 75 mg PO DAILY 04/25/21 [History] Digoxin 125 mcg PO DAILY 04/25/21 [History] Dulaglutide [Trulicity] 3 mg SQ WEEKLY 04/25/21 [History] Empagliflozin [Jardiance] 25 mg PO DAILY 04/25/21 [History] Gabapentin [Neurontin ] 600 mg PO TID 04/25/21 [History] Mirabegron [Myrbetriq] 25 mg PO HS 04/25/21 [History] Multivitamin 1 tablet PO DAILY 04/25/21 [History] Hx Tetanus, Diphtheria Vaccination/Date Given: No Hx Influenza Vaccination/Date Given: Yes Hx Pneumococcal Vaccination/Date Given: Yes Immunizations Up to Date: Yes Travel Risk - International Travel Have you traveled outside of the country in past 3 weeks: No - Emerging Infectious Disease Are you exhibiting symptoms associated with any current EIDs: No - Past Medical History Pertinent Past Medical History: Yes Neurological History: No Pertinent History ENT History: Cataracts Cardiac History: Coronary Artery Disease, High Cholesterol, Hypertension Respiratory History: No Pertinent History Endocrine Medical History: Diabetes Type II Musculoskeletal History: No Pertinent History GI Medical History: No Pertinent History History: No Pertinent History Psycho-Social History: No Pertinent History Male Reproductive Disorders: Prostate Problems Other Medical History: back surgery (discectomy), 5 stents in heart(2014) - Past Surgical History Past Surgical History: Yes Neuro Surgical History: No Pertinent History Cardiac: Cardiac Catheterization, Cardiac Stent Respiratory: No Pertinent History Gastrointestinal: Appendectomy Genitourinary: No Pertinent History Musculoskeletal: Other Male Surgical History: Prostate Surgery Other Surgical History: achilles tendon, back surgery (discectomy), 5 stents in heart(2014) Significant Family History: no pertinent family hx - Social History Smoking Status: Never smoker Exposure to second hand smoke: No Drug Use: none Patient Lives Alone: No - Social Determinants of Health Will the patient participate in the screening: Yes Do you worry about a steady place to live?: No Do you have any problems with any of the following?: No known problems In the past 12 months,have you had to go without utilities?: No Transportation Issues: No Has anyone in your support network made you feel unsafe?: No Have you or anyone in your house had to go without enough: No - Nursing Vital Signs Nursing Vital Signs: Initial Vital Signs Pulse Rate 62 05/20/24 13:17 Respiratory Rate 19 05/20/24 13:17 Blood Pressure 160/93 05/20/24 13:17 O2 Sat by Pulse Oximetry 96 05/20/24 13:17 Pain Scale Pain Intensity 0 - Physical Exam SpO2: 95 Comments: 05/20/24 18:15 Review of Systems Constitutional: Negative for fever. HENT: Negative for congestion. Respiratory: Negative for shortness of breath. Cardiovascular: Negative for chest pain. Gastrointestinal: Negative for abdominal pain. Genitourinary: Negative for dysuria. Musculoskeletal: Negative for back pain. Skin: Negative for rash. Neurological: Negative for headaches. Psychiatric/Behavioral: Negative for behavioral problems. All other systems reviewed and are negative. Physical Exam Vitals signs and nursing note reviewed. Constitutional: Appearance: Patient is well-developed. HENT: Head: Normocephalic and atraumatic. Eyes: Conjunctiva/sclera: Conjunctivae normal. Neck: Musculoskeletal: Normal range of motion. Trachea: No tracheal deviation. Cardiovascular: Rate and Rhythm: Normal rate. Pulmonary: Effort: Pulmonary effort is normal. No respiratory distress. Abdominal: Palpations: Abdomen is soft. Musculoskeletal: General: No deformity. Skin: General: Skin is warm and dry. Neurological/ Psychiatric: Mental Status: Mental status, behavior, interaction with environment is appropriate for patient's age and condition Motor: There is no pronator drift of out-stretched arms. Muscle bulk and tone are normal. Strength is full bilaterally. Reflexes: Reflexes are 2+ and symmetric. Sensory: Light touch sense are intact in bilateral upper and lower extremities. There is no sign of neglect. Coordination: Rapid alternating movements are intact. Gait/Stance: Posture is normal, patient is ambultory without difficuly to bed No trismus, able to fully extend neck, normal range of motion of neck without pain. Uvula is midline, no swelling of the mouth, noraml oropharynx. No exudate, no signs of meningitis, no floor of mouth swelling, no hot potato voice on exam. No buccal swelling, no gum bleeding, no signs of tooth abscess/infection. Right tympanic membrane demonstrates otitis media. Left tympanic membrane clear - Course Nursing assessment & vital signs reviewed: Yes EKG Interpreted by Me: Sinus Rhythm Ordered Tests: Active Orders 24 hr Category Date Time Status Bath Solution Maker STAT Care 05/20/24 14:06 Completed EKG-ER Only STAT Care 05/20/24 14:05 Completed IV Insertion STAT Care 05/20/24 14:05 Completed CHEST 1 VIEW (PORTABLE) Stat Exams 05/20/24 14:06 Completed HEAD WITHOUT CONTRAST [CT] Stat Exams 05/20/24 14:07 Completed CBC W DIFF Stat Lab 05/20/24 14:15 Completed CK-Creatinine Phosphokinase Stat Lab 05/20/24 14:05 Completed CMP Stat Lab 05/20/24 14:05 Completed LIPASE Stat Lab 05/20/24 14:05 Completed NT PRO BNPII Stat Lab 05/20/24 14:05 Completed NT PRO BNPII Stat Lab 05/20/24 14:15 Completed TROPONIN Q4H Lab 05/20/24 14:15 Completed UA W/RFX UR CULTURE Stat Lab 05/20/24 14:32 Completed Medication Summary Discontinued Medications Generic Name Dose Route Start Last Admin Trade Name Freandrey PRN Reason Stop Dose Admin Sodium Chloride 500 mls @ 500 mls/hr 05/20/24 14:07 05/20/24 15:42 Sodium Chloride 0.9% 500 Ml IV 05/20/24 15:06 Infused .Q1H ONE Infusion Sodium Chloride Confirm 05/20/24 14:29 Sodium Chloride 0.9% 500 Ml Administered 05/20/24 14:30 Dose 500 mls @ ud IV .STK-MED ONE Meclizine HCl 25 mg 05/20/24 14:07 05/20/24 14:29 Meclizine Hcl 25 Mg Tablet PO 05/20/24 14:08 25 mg STAT ONE Administration Meclizine HCl Confirm 05/20/24 14:29 Meclizine Hcl 25 Mg Tablet Administered 05/20/24 14:30 Dose 25 mg .ROUTE .STK-MED ONE Lab/Rad Data: Laboratory Result Diagrams 05/20/24 14:15 05/20/24 14:05 Laboratory Results 05/20/24 05/20/24 05/20/24 Range/Units 14:32 14:15 14:15 WBC 7.9 (4.23-9.07) x10^3/uL RBC 4.27 L (4.63-6.08) x10^6/uL Hgb 14.1 (13.7-17.5) g/dL Hct 41.6 (40.1-51.0) % MCV 97.4 H (79.0-92.2) fL MCH 33.0 H (25.7-32.2) pg MCHC 33.9 (32.3-36.5) g/dL RDW 13.1 (11.6-14.4) % Plt Count 193 (163-337) x10^3/uL MPV 9.0 L (9.4-12.4) fL Gran % 58.0 (34.0-67.9) % Immature Gran % (Auto) 0.5 H (0.001-0.429) % Nucleat RBC Rel Count 0.0 (0.00-0.2) % Eos # (Auto) 0.14 (0.04-0.54) x10^3/uL Immature Gran # (Auto) 0.04 H (0.001-0.031) x10^3u/L Absolute Lymphs (auto) 2.52 (1.32-3.57) x10^3/uL Absolute Monos (auto) 0.55 (0.30-0.82) x10^3/uL Absolute Nucleated RBC 0.00 (0.00-0.012) x10^3u/L Lymphocytes % 31.9 (21.8-53.1) % Monocytes % 7.0 (5.3-12.2) % Eosinophils % 1.8 (0.8-7.0) % Basophils % 0.8 (0.2-1.2) % Absolute Granulocytes 4.59 (1.78-5.38) x10^3/uL Basophils # 0.06 (0.01-0.08) x10^3/uL Sodium (135-145) mmol/L Potassium (3.5-5.1) mmol/L Chloride (98-107) mmol/L Carbon Dioxide (22-30) mmol/L Anion Gap (5-15) MEQ/L BUN (9-20) mg/dL Creatinine (0.66-1.25) mg/dL Estimated GFR ML/MIN Glucose (74-106) mg/dL Calcium (8.4-10.2) mg/dL Total Bilirubin (0.2-1.3) mg/dL AST (17-59) U/L ALT (0-50) U/L Alkaline Phosphatase (38-126) U/L Creatine Kinase (55-170) U/L Troponin I < 0.012 (0.000-0.033) ng/mL NT-Pro-B Natriuret Pep 118 (<300) pg/mL Serum Total Protein (6.3-8.2) g/dL Albumin (3.5-5.0) g/dL Lipase (23-300) U/L Urine Color Yellow (Yellow) Urine Appearance Clear (Clear) Urine pH 5.0 (4.6-8.0) Ur Specific Coker >=1.030 A (1.005-1.030) Urine Protein Negative (Negative) Urine Glucose (UA) Negative (Negative) mg/dL Urine Ketones Trace A (Negative) Urine Blood Negative (Negative) Urine Nitrite Negative (Negative) Urine Bilirubin Negative (Negative) Urine Urobilinogen 0.2 (0.2) mg/dL Ur Leukocyte Esterase Negative (Negative) U Hyaline Cast (Auto) NONE SEEN (0-2) /LPF Urine Microscopic RBC 0-2 (0-5) /HPF Urine Microscopic WBC 6-10 A (0-5) /HPF Ur Epithelial Cells Rare (None Seen) /HPF Urine Bacteria None Seen (None Seen) /HPF Urine Culture Reflexed NO (NO) Influenza Type A Ag (NEGATIVE) Influenza Type B Ag (NEGATIVE) RSV (PCR) (NEGATIVE) SARS-CoV-2 (PCR) (NEGATIVE) 05/20/24 05/20/24 Range/Units 14:12 14:05 WBC (4.23-9.07) x10^3/uL RBC (4.63-6.08) x10^6/uL Hgb (13.7-17.5) g/dL Hct (40.1-51.0) % MCV (79.0-92.2) fL MCH (25.7-32.2) pg MCHC (32.3-36.5) g/dL RDW (11.6-14.4) % Plt Count (163-337) x10^3/uL MPV (9.4-12.4) fL Gran % (34.0-67.9) % Immature Gran % (Auto) (0.001-0.429) % Nucleat RBC Rel Count (0.00-0.2) % Eos # (Auto) (0.04-0.54) x10^3/uL Immature Gran # (Auto) (0.001-0.031) x10^3u/L Absolute Lymphs (auto) (1.32-3.57) x10^3/uL Absolute Monos (auto) (0.30-0.82) x10^3/uL Absolute Nucleated RBC (0.00-0.012) x10^3u/L Lymphocytes % (21.8-53.1) % Monocytes % (5.3-12.2) % Eosinophils % (0.8-7.0) % Basophils % (0.2-1.2) % Absolute Granulocytes (1.78-5.38) x10^3/uL Basophils # (0.01-0.08) x10^3/uL Sodium 136 (135-145) mmol/L Potassium 4.2 (3.5-5.1) mmol/L Chloride 100 (98-107) mmol/L Carbon Dioxide 29 (22-30) mmol/L Anion Gap 11.0 (5-15) MEQ/L BUN 20 (9-20) mg/dL Creatinine 0.74 (0.66-1.25) mg/dL Estimated GFR 86.6 ML/MIN Glucose 179 H (74-106) mg/dL Calcium 9.6 (8.4-10.2) mg/dL Total Bilirubin 0.50 (0.2-1.3) mg/dL AST 31 (17-59) U/L ALT 23 (0-50) U/L Alkaline Phosphatase 105 (38-126) U/L Creatine Kinase 21 L (55-170) U/L Troponin I (0.000-0.033) ng/mL NT-Pro-B Natriuret Pep 121 (<300) pg/mL Serum Total Protein 6.7 (6.3-8.2) g/dL Albumin 3.9 (3.5-5.0) g/dL Lipase 60 (23-300) U/L Urine Color (Yellow) Urine Appearance (Clear) Urine pH (4.6-8.0) Ur Specific Coker (1.005-1.030) Urine Protein (Negative) Urine Glucose (UA) (Negative) mg/dL Urine Ketones (Negative) Urine Blood (Negative) Urine Nitrite (Negative) Urine Bilirubin (Negative) Urine Urobilinogen (0.2) mg/dL Ur Leukocyte Esterase (Negative) U Hyaline Cast (Auto) (0-2) /LPF Urine Microscopic RBC (0-5) /HPF Urine Microscopic WBC (0-5) /HPF Ur Epithelial Cells (None Seen) /HPF Urine Bacteria (None Seen) /HPF Urine Culture Reflexed (NO) Influenza Type A Ag NEGATIVE (NEGATIVE) Influenza Type B Ag NEGATIVE (NEGATIVE) RSV (PCR) NEGATIVE (NEGATIVE) SARS-CoV-2 (PCR) NEGATIVE (NEGATIVE) - Progress Progress: improved Progress Note: 05/20/24 18:18 Differential diagnosis includes: PNA, STEMI, NSTEMI, other infection, m usculoskeletal pain, pneumothorax, ear infection, vertigo, head bleed, tumor - We'll obtain basic labs, fluids, EKG, troponin, chest x-ray - EKG shows no ST changes - my read - O2 saturations consistently greater than 95%. - CXR shows no pneumonia, pneumothorax - my read - Head CT Reevaluation: Patient feels improved with interventions. Patient has a negative troponin, negative head CT, other negative imaging. Given over all picture I did speak with his adult daughter who is a nurse. On my exam patient definitely has otitis media. Certainly this could cause a lot of the patient's symptoms. We did discussed admitting the patient to the hospital. We can also try an outpatient antibiotic trial. If it is an ear infection it should improve with oral antibiotics. Using shared decision making with the patient and the patient's adult children we did decide to treat with Augmentin going home. Patient will follow-up closely with PCP for neurological reexam in 24 to 48 hours. May return here sooner for any new or changing symptoms. Counseled pt/family regarding: lab results, diagnosis, need for follow-up, rad results - Departure Departure Disposition: Home Clinical Impression: Right otitis media, Dizziness Condition: Stable Critical Care Time: No Referrals: ROWENA VIEYRA MD [Primary Care Provider] - Follow up/PCP as directed Instructions: Ear infections in adults Prescriptions: Amox Tr/Potass Clav. 875 mg [Augmentin 875-125 Tablet] 875 mg PO BID 10 Days #20 tablet
[2024-05-20 16:52] VITALS: BP 150/85; PULSE 84; RESP 7
== END 2024-05-20 17:07 | disposition home or self-care (01) ==
LOC: ED 09:48
DX: H66.91 Otitis media, unspecified, right ear (principal); H92.01 Otalgia, right ear; Z79.01 Long term (current) use of anticoagulants; R42 Dizziness and giddiness
CPT/HCPCS: 0241U; 36415; 70450; 71045; 80053; 81001; 82550; 83690; 83880; 84484; 85025; 93005; 93041; 99285; 99284; A9270-GY

== ENCOUNTER 2024-06-28 11:11 | Observation (INO) | payer MEDICARE ==
--- NOTE | 2024-06-28 11:49 | ERPHSYRPT ---
- History of Present Illness Time Seen by Provider: 06/28/24 11:32 Source: patient, family (daughter) Exam Limitations: no limitations Patient Subjective Stated Complaint: EMS states "His family called us because they found him in bed unable to get out of bed and he had urinated all over himself." Triage Nursing Assessment: Pt presented alert and confused. Pt able to speak in clear full sentences. Pt is hard of hearing. Pt resting comfortable in no apparent respiratory distress. Pt clothes were wet with urine pt clothing was removed and he was cleaned up with a gown placed on him. Physician History: This morning pt had generalized weakness and incontinence; chest pain, shortness of air, abdominal pain denied. Allergies/Adverse Reactions: No Known Drug Allergies Allergy (Verified 05/20/24 13:18) Home Medications: Aspirin EC 81 mg [Ecotrin 81 mg] 81 mg PO DAILY 04/25/21 [History] Carvedilol 3.125 mg [Coreg 3.125 MG] 3.125 mg PO BID 04/25/21 [History] Cholecalciferol (Vitamin D3) [Vitamin D3] 1 tab PO DAILY 04/25/21 [History] Clopidogrel Bisulfate [PLAVIX Tablet] 75 mg PO DAILY 04/25/21 [History] Digoxin 125 mcg PO DAILY 04/25/21 [History] Empagliflozin [Jardiance] 25 mg PO DAILY 04/25/21 [History] Gabapentin [Neurontin ] 600 mg PO TID 04/25/21 [History] Mirabegron [Myrbetriq] 25 mg PO HS 04/25/21 [History] Multivitamin 1 tablet PO DAILY 04/25/21 [History] Exenatide Microspheres [Bydureon Bcise] 2 mg SQ WEEKLY 06/28/24 [History] Hx Tetanus, Diphtheria Vaccination/Date Given: No Hx Influenza Vaccination/Date Given: Yes Hx Pneumococcal Vaccination/Date Given: Yes Immunizations Up to Date: No Travel Risk - International Travel Have you traveled outside of the country in past 3 weeks: No - Emerging Infectious Disease Are you exhibiting symptoms associated with any current EIDs: Yes Symptoms: Other (Please Comment) Comment: weakness - Review of Systems Respiratory: No Dyspnea Cardiac: No Chest Pain Abdominal/Gastrointestinal: No Abdominal Pain Neurological: Other (generalized weakness), No Headache - Past Medical History Pertinent Past Medical History: Yes Neurological History: No Pertinent History ENT History: Cataracts Cardiac History: Coronary Artery Disease, High Cholesterol, Hypertension Respiratory History: No Pertinent History Endocrine Medical History: Diabetes Type II Musculoskeletal History: No Pertinent History GI Medical History: No Pertinent History History: No Pertinent History Psycho-Social History: No Pertinent History Male Reproductive Disorders: Prostate Problems Other Medical History: back surgery (discectomy), 5 stents in heart(2014) - Past Surgical History Past Surgical History: Yes Neuro Surgical History: No Pertinent History Cardiac: Cardiac Catheterization, Cardiac Stent Respiratory: No Pertinent History Gastrointestinal: Appendectomy Genitourinary: No Pertinent History Musculoskeletal: Other Male Surgical History: Prostate Surgery Other Surgical History: achilles tendon, back surgery (discectomy), 5 stents in heart(2014) Significant Family History: no pertinent family hx - Social History Smoking Status: Never smoker Exposure to second hand smoke: No Drug Use: none Patient Lives Alone: No - Social Determinants of Health Will the patient participate in the screening: Yes Do you worry about a steady place to live?: No Do you have any problems with any of the following?: No known problems In the past 12 months,have you had to go without utilities?: No Transportation Issues: No Has anyone in your support network made you feel unsafe?: No Have you or anyone in your house had to go without enough: No - Nursing Vital Signs Nursing Vital Signs: Initial Vital Signs Temperature 99.3 F 06/28/24 11:14 Pulse Rate 102 H 06/28/24 11:14 Respiratory Rate 22 06/28/24 11:14 Blood Pressure 157/104 06/28/24 11:14 O2 Sat by Pulse Oximetry 96 06/28/24 11:14 Pain Scale Pain Intensity 0 - Physical Exam General Appearance: alert Eye Exam: eyes nml inspection Neck Exam: normal inspection Respiratory Exam: lungs clear Cardiovascular Exam: normal heart sounds Gastrointestinal/Abdomen Exam: normal bowel sounds Back Exam: normal inspection Neurologic Exam: alert, oriented x 3, cooperative, other (H.O.H.) Skin Exam: warm, dry SpO2 Interpretation: normal SpO2: 96 O2 Delivery: Room Air - Course Nursing assessment & vital signs reviewed: Yes EKG Interpreted by Me: RATE (109), Sinus Tach, Left Prichard Deviation, Other (QTc = 485) - Radiology Exams Chest X-ray Interpretation: Discussed w/ radiologist, No Pneumonia Ordered Tests: Active Orders 24 hr Category Date Time Status EKG-ER Only STAT Care 06/28/24 11:43 Active IV Insertion STAT Care 06/28/24 11:43 Active CHEST 1 VIEW (PORTABLE) Stat Exams 06/28/24 11:45 Completed AMYLASE Stat Lab 06/28/24 12:15 Completed BLOOD CULTURE Stat Lab 06/28/24 12:21 Received CBC W DIFF Stat Lab 06/28/24 12:15 Completed CMP Stat Lab 06/28/24 12:15 Completed CULTURE,URINE Stat Lab 06/28/24 12:04 Received LIPASE Stat Lab 06/28/24 12:15 Completed Lactic Acid Stat Lab 06/28/24 12:34 Completed MAGNESIUM Stat Lab 06/28/24 12:15 Completed MONO SCREEN Stat Lab 06/28/24 12:15 Completed TROPONIN Q4H Lab 06/28/24 12:15 Completed TROPONIN Q4H Lab 06/28/24 15:20 Completed TROPONIN Q4H Lab 06/28/24 19:45 Ordered UA W/RFX UR CULTURE Stat Lab 06/28/24 12:04 Completed Medication Summary Discontinued Medications Generic Name Dose Route Start Last Admin Trade Name Freq PRN Reason Stop Dose Admin Sodium Chloride 1,000 mls @ 999 mls/hr 06/28/24 11:43 06/28/24 13:59 Sodium Chloride 0.9% 1000 Ml IV 06/28/24 12:43 Infused .Q1H1M STA Infusion Ceftriaxone Sodium 1 gm in 100 mls @ 200 mls/hr 06/28/24 11:47 06/28/24 13:58 Rocephin 1 Gm / 100 Ml Nacl IV 06/28/24 12:16 Infused STAT ONE Infusion Azithromycin 500 mg in 250 mls @ 250 mls/hr 06/28/24 11:47 06/28/24 14:32 Zithromax 500 Mg/ 250 Ml Nacl Premix IV 06/28/24 12:46 Infused STAT STA Infusion Azithromycin Confirm 06/28/24 12:02 Zithromax 500 Mg/ 250 Ml Nacl Premix Administered 06/28/24 12:03 Dose 500 mg in 250 mls @ ud IV .STK-MED ONE Sodium Chloride Confirm 06/28/24 12:03 Sodium Chloride 0.9% 1000 Ml Administered 06/28/24 12:04 Dose 1,000 mls @ ud .ROUTE .STK-MED ONE Ceftriaxone Sodium Confirm 06/28/24 12:03 Rocephin 1 Gm / 100 Ml Nacl Administered 06/28/24 12:04 Dose 1 gm in 100 mls @ IV .STK-MED ONE Lab/Rad Data: Laboratory Result Diagrams 06/28/24 12:15 06/28/24 12:15 Laboratory Results 06/28/24 06/28/24 06/28/24 Range/Units 15:20 12:34 12:15 WBC (4.23-9.07) x10^3/uL RBC (4.63-6.08) x10^6/uL Hgb (13.7-17.5) g/dL Hct (40.1-51.0) % MCV (79.0-92.2) fL MCH (25.7-32.2) pg MCHC (32.3-36.5) g/dL RDW (11.6-14.4) % Plt Count (163-337) x10^3/uL MPV (9.4-12.4) fL Gran % (34.0-67.9) % Immature Gran % (Auto) (0.001-0.429) % Nucleat RBC Rel Count (0.00-0.2) % Eos # (Auto) (0.04-0.54) x10^3/uL Immature Gran # (Auto) (0.001-0.031) x10^3u/L Absolute Lymphs (auto) (1.32-3.57) x10^3/uL Absolute Monos (auto) (0.30-0.82) x10^3/uL Absolute Nucleated RBC (0.00-0.012) x10^3u/L Lymphocytes % (21.8-53.1) % Monocytes % (5.3-12.2) % Eosinophils % (0.8-7.0) % Basophils % (0.2-1.2) % Absolute Granulocytes (1.78-5.38) x10^3/uL Basophils # (0.01-0.08) x10^3/uL Sodium (135-145) mmol/L Potassium (3.5-5.1) mmol/L Chloride (98-107) mmol/L Carbon Dioxide (22-30) mmol/L Anion Gap (5-15) MEQ/L BUN (9-20) mg/dL Creatinine (0.66-1.25) mg/dL Estimated GFR ML/MIN Glucose (74-106) mg/dL Lactic Acid 2.0 (0.4-2.0) Calcium (8.4-10.2) mg/dL Magnesium (1.6-2.3) mg/dL Total Bilirubin (0.2-1.3) mg/dL AST (17-59) U/L ALT (0-50) U/L Alkaline Phosphatase (38-126) U/L Troponin I 0.013 (0.000-0.033) ng/mL Serum Total Protein (6.3-8.2) g/dL Albumin (3.5-5.0) g/dL Amylase (30-110) U/L Lipase (23-300) U/L Urine Color (Yellow) Urine Appearance (Clear) Urine pH (4.6-8.0) Ur Specific [place] (1.005-1.030) Urine Protein (Negative) Urine Glucose (UA) (Negative) mg/dL Urine Ketones (Negative) Urine Blood (Negative) Urine Nitrite (Negative) Urine Bilirubin (Negative) Urine Urobilinogen (0.2) mg/dL Ur Leukocyte Esterase (Negative) U Hyaline Cast (Auto) (0-2) /LPF Urine Microscopic RBC (0-5) /HPF Urine Microscopic WBC (0-5) /HPF Ur Epithelial Cells (None Seen) /HPF Urine Bacteria (None Seen) /HPF Urine Culture Reflexed (NO) Monoscreen NEGATIVE (NEGATIVE) Influenza Type A Ag (NEGATIVE) Influenza Type B Ag (NEGATIVE) RSV (PCR) (NEGATIVE) SARS-CoV-2 (PCR) (NEGATIVE) Group A Strep Antibody (NEGATIVE) Slides for Path Review 06/28/24 06/28/24 06/28/24 Range/Units 12:15 12:15 12:15 WBC 10.3 H (4.23-9.07) x10^3/uL RBC 4.72 (4.63-6.08) x10^6/uL Hgb 15.4 (13.7-17.5) g/dL Hct 46.0 (40.1-51.0) % MCV 97.5 H (79.0-92.2) fL MCH 32.6 H (25.7-32.2) pg MCHC 33.5 (32.3-36.5) g/dL RDW 13.5 (11.6-14.4) % Plt Count 145 L (163-337) x10^3/uL MPV 9.9 (9.4-12.4) fL Gran % 82.2 H (34.0-67.9) % Immature Gran % (Auto) 0.5 H (0.001-0.429) % Nucleat RBC Rel Count 0.0 (0.00-0.2) % Eos # (Auto) 0.03 L (0.04-0.54) x10^3/uL Immature Gran # (Auto) 0.05 H (0.001-0.031) x10^3u/L Absolute Lymphs (auto) 0.75 L (1.32-3.57) x10^3/uL Absolute Monos (auto) 0.92 H (0.30-0.82) x10^3/uL Absolute Nucleated RBC 0.00 (0.00-0.012) x10^3u/L Lymphocytes % 7.3 L (21.8-53.1) % Monocytes % 9.0 (5.3-12.2) % Eosinophils % 0.3 L (0.8-7.0) % Basophils % 0.7 (0.2-1.2) % Absolute Granulocytes 8.43 H (1.78-5.38) x10^3/uL Basophils # 0.07 (0.01-0.08) x10^3/uL Sodium 136 (135-145) mmol/L Potassium 4.7 (3.5-5.1) mmol/L Chloride 101 (98-107) mmol/L Carbon Dioxide 22 (22-30) mmol/L Anion Gap 16.6 H (5-15) MEQ/L BUN 15 (9-20) mg/dL Creatinine 0.82 (0.66-1.25) mg/dL Estimated GFR 84.0 ML/MIN Glucose 211 H (74-106) mg/dL Lactic Acid (0.4-2.0) Calcium 9.1 (8.4-10.2) mg/dL Magnesium 2.1 (1.6-2.3) mg/dL Total Bilirubin 0.80 (0.2-1.3) mg/dL AST 40 (17-59) U/L ALT 23 (0-50) U/L Alkaline Phosphatase 94 (38-126) U/L Troponin I < 0.012 (0.000-0.033) ng/mL Serum Total Protein 6.9 (6.3-8.2) g/dL Albumin 4.4 (3.5-5.0) g/dL Amylase 43 (30-110) U/L Lipase 58 (23-300) U/L Urine Color (Yellow) Urine Appearance (Clear) Urine pH (4.6-8.0) Ur Specific [place] (1.005-1.030) Urine Protein (Negative) Urine Glucose (UA) (Negative) mg/dL Urine Ketones (Negative) Urine Blood (Negative) Urine Nitrite (Negative) Urine Bilirubin (Negative) Urine Urobilinogen (0.2) mg/dL Ur Leukocyte Esterase (Negative) U Hyaline Cast (Auto) (0-2) /LPF Urine Microscopic RBC (0-5) /HPF Urine Microscopic WBC (0-5) /HPF Ur Epithelial Cells (None Seen) /HPF Urine Bacteria (None Seen) /HPF Urine Culture Reflexed (NO) Monoscreen (NEGATIVE) Influenza Type A Ag (NEGATIVE) Influenza Type B Ag (NEGATIVE) RSV (PCR) (NEGATIVE) SARS-CoV-2 (PCR) (NEGATIVE) Group A Strep Antibody (NEGATIVE) Slides for Path Review YES 06/28/24 06/28/24 06/28/24 Range/Units 12:11 12:11 12:04 WBC (4.23-9.07) x10^3/uL RBC (4.63-6.08) x10^6/uL Hgb (13.7-17.5) g/dL Hct (40.1-51.0) % MCV (79.0-92.2) fL MCH (25.7-32.2) pg MCHC (32.3-36.5) g/dL RDW (11.6-14.4) % Plt Count (163-337) x10^3/uL MPV (9.4-12.4) fL Gran % (34.0-67.9) % Immature Gran % (Auto) (0.001-0.429) % Nucleat RBC Rel Count (0.00-0.2) % Eos # (Auto) (0.04-0.54) x10^3/uL Immature Gran # (Auto) (0.001-0.031) x10^3u/L Absolute Lymphs (auto) (1.32-3.57) x10^3/uL Absolute Monos (auto) (0.30-0.82) x10^3/uL Absolute Nucleated RBC (0.00-0.012) x10^3u/L Lymphocytes % (21.8-53.1) % Monocytes % (5.3-12.2) % Eosinophils % (0.8-7.0) % Basophils % (0.2-1.2) % Absolute Granulocytes (1.78-5.38) x10^3/uL Basophils # (0.01-0.08) x10^3/uL Sodium (135-145) mmol/L Potassium (3.5-5.1) mmol/L Chloride (98-107) mmol/L Carbon Dioxide (22-30) mmol/L Anion Gap (5-15) MEQ/L BUN (9-20) mg/dL Creatinine (0.66-1.25) mg/dL Estimated GFR ML/MIN Glucose (74-106) mg/dL Lactic Acid (0.4-2.0) Calcium (8.4-10.2) mg/dL Magnesium (1.6-2.3) mg/dL Total Bilirubin (0.2-1.3) mg/dL AST (17-59) U/L ALT (0-50) U/L Alkaline Phosphatase (38-126) U/L Troponin I (0.000-0.033) ng/mL Serum Total Protein (6.3-8.2) g/dL Albumin (3.5-5.0) g/dL Amylase (30-110) U/L Lipase (23-300) U/L Urine Color Yellow (Yellow) Urine Appearance Clear (Clear) Urine pH 5.5 (4.6-8.0) Ur Specific [place] >=1.030 A (1.005-1.030) Urine Protein Negative (Negative) Urine Glucose (UA) >=1000 A (Negative) mg/dL Urine Ketones 80 A (Negative) Urine Blood Negative (Negative) Urine Nitrite Negative (Negative) Urine Bilirubin Negative (Negative) Urine Urobilinogen 0.2 (0.2) mg/dL Ur Leukocyte Esterase Negative (Negative) U Hyaline Cast (Auto) NONE SEEN (0-2) /LPF Urine Microscopic RBC 6-10 A (0-5) /HPF Urine Microscopic WBC 3-5 (0-5) /HPF Ur Epithelial Cells None Seen (None Seen) /HPF Urine Bacteria Rare A (None Seen) /HPF Urine Culture Reflexed YES (NO) Monoscreen (NEGATIVE) Influenza Type A Ag POSITIVE A (NEGATIVE) Influenza Type B Ag NEGATIVE (NEGATIVE) RSV (PCR) NEGATIVE (NEGATIVE) SARS-CoV-2 (PCR) NEGATIVE (NEGATIVE) Group A Strep Antibody NOT DETECTED (NEGATIVE) Slides for Path Review - Progress Progress: unchanged Will see patient in: hospital (observation), other (Spoke with Dr. Juan - obs) Counseled pt/family regarding: lab results, diagnosis, rad results Medical Desision Making - Diagnostic Testing Diagnostic test were ordered, analyzed, and reviewed by me: Yes Radiological Interpretation: Discussed w/ radiologist - Departure Departure Disposition: Observation Clinical Impression: Influenza A, Generalized weakness Condition: Stable Critical Care Time: No Referrals: ROWENA VIEYRA MD [Primary Care Provider] - Follow up/PCP as directed
[2024-06-28] MEDS ORDERED: Zithromax 500 MG/ 250 ML NaCl Premix 500 MG/250 ML IVPB IV ONE (12:02)
[2024-06-28] MEDS ORDERED: ROCEPHIN 1 GM / 100 ML NaCl 1 GM/100 ML IVPB IV ONE (12:03)
[2024-06-28] MEDS ORDERED: Sodium Chloride 0.9% 1000 ML 1,000 ML ONE (12:03)
[2024-06-28] MEDS: Sodium Chloride 0.9% 1000 ML 1,000 ML IV STA (12:10)
[2024-06-28] MEDS: ROCEPHIN 1 GM / 100 ML NaCl 1 GM/100 ML IVPB IV ONE (12:24)
[2024-06-28 12:38] LABS: Absolute Neutrophil Ct (ANC) 8.43 x10^3/uL (1.78-5.38); BASOPHIL % 0.7 % (0.2-1.2); Basophil (Absolute #) 0.07 x10^3/uL (0.01-0.08); Eosinophil % 0.3 % (0.8-7.0); Eosinophil (Absolute #) 0.03 x10^3/uL (0.04-0.54); Hemoglobin 15.4 g/dL (13.7-17.5); IMMATURE GRAN # 0.05 x10^3u/L (0.001-0.031); IMMATURE GRAN % 0.5 % (0.001-0.429); Lymphocyte (Absolute #) 0.75 x10^3/uL (1.32-3.57); Lymphocytes % 7.3 % (21.8-53.1); Mean Cell Volume 97.5 fL (79.0-92.2); Mean Corpuscular Hemoglobin 32.6 pg (25.7-32.2); Mean Corpuscular Hgb Concent. 33.5 g/dL (32.3-36.5); Mean Platelet Volume 9.9 fL (9.4-12.4); Monocyte (Absolute #) 0.92 x10^3/uL (0.30-0.82); Neutrophil % 82.2 % (34.0-67.9); Platelet Count 145 x10^3/uL (163-337); Red Blood Count 4.72 x10^6/uL (4.63-6.08); Red Cell Distribution Width 13.5 % (11.6-14.4); White Blood Count 10.3 x10^3/uL (4.23-9.07)
[2024-06-28 12:40] LABS: ALBUMIN 4.4 g/dL (3.5-5.0); ANION GAP 16.6 MEQ/L (5-15); BILIRUBIN,TOTAL 0.8 mg/dL (0.2-1.3); Calcium 9.1 mg/dL (8.4-10.2); Creatinine 1 0.82 mg/dL (0.66-1.25); Potassium 4.7 mmol/L (3.5-5.1); Total Protein 6.9 g/dL (6.3-8.2)
[2024-06-28 12:52] LABS: MAGNESIUM 2.1 mg/dL (1.6-2.3); TROPONIN < 0.012 ng/mL (0.000-0.033)
--- NOTE | 2024-06-28 12:58 | XRAY ---
Indication: Cough and weakness. Comparison: May 20, 2024 Portable chest better inflated and remains clear again with tiny left base calcified granuloma. Heart not enlarged. Bony thorax intact again with osteopenia and degenerative changes. No new/acute findings.
[2024-06-28 13:08] LABS: Slide Review 1 YES
[2024-06-28 13:17] LABS: Bacteria Rare /HPF (None Seen); Epithelial Cells None Seen /HPF (None Seen); Hyaline Casts NONE SEEN /LPF (0-2)
[2024-06-28 13:23] LABS: Appearance Clear (Clear); Bilirubin Negative (Negative); Blood Negative (Negative); Glucose, Urine >=1000 mg/dL (Negative); Ketones 80 (Negative); Leukocyte Esterase Negative (Negative); Nitrite Negative (Negative); Ph 5.5 (4.6-8.0); Protein,Urine Dip Negative (Negative); Specific Gravity >=1.030 (1.005-1.030); Urobilinogen 0.2 mg/dL (0.2)
[2024-06-28] MEDS: Zithromax 500 MG/ 250 ML NaCl Premix 500 MG/250 ML IVPB IV STA (13:27)
[2024-06-28 13:28] LABS: INFLUENZA B NEGATIVE (NEGATIVE); RESPIRATORY SYNCTIAL VIRUS NEGATIVE (NEGATIVE); SARS-CoV-2 Xpert Express NEGATIVE (NEGATIVE)
[2024-06-28 13:33] LABS: INFLUENZA A POSITIVE (NEGATIVE)
[2024-06-28] MEDS ORDERED: TYLENOL 325 MG PO PRN (17:20)
--- NOTE | 2024-06-28 18:21 | PCM.HP ---
<RANJITH COELHO - Last Filed: 06/28/24 18:35> History of Present Illness - Chief Complaint Chief Complaint: Generalized weakness; Influenza A Date: 06/28/24 History of Present Illness: Mr. Colindres is an 88 year old male with a pmhx of DMII, HLD, CAD, HTN and BPH who presented to ED 06/28/24 with complaints of weakness and incontinence. Patient is KAW and a poor historian. Reports weakness is so severe he has been unable to care for himself at home. States he was unable to get up to go to the bathroom and had several incontinence episodes while waiting for family to arrive and help. Denies fever, shortness of breath, nausea, vomiting, diarrhea, headache. No recent sick contacts that he knows of. Upon arrival to ED, patient hypertensive and tachycardic. EKG per ED read - RATE (109), Sinus Tach, Left Webb Deviation, Other (QTc = 485). CXR with no acute findings. Labs remarkable for mild leukocytosis with WBC at 10.3 and FLU A positive. Patient given IVF bolus, ceftriaxone, and azithromycin in ED. Admit for influenza A and generalized weakness. - Review of Systems Constitutional: Lethargy, Weakness Eyes: No Symptoms Ears, Nose, & Throat: No Symptoms Respiratory: No Symptoms Cardiac: No Symptoms Abdominal/Gastrointestinal: No Symptoms Genitourinary Symptoms: No Symptoms Musculoskeletal: No Symptoms Skin: No Symptoms Neurological: No Symptoms Psychological: No Symptoms Endocrine: No Symptoms Hematologic/Lymphatic: No Symptoms Immunological/Allergic: No Symptoms Medications & Allergies Home Medications: Home Medication List Aspirin EC 81 mg [Ecotrin 81 mg] 81 mg PO DAILY 04/25/21 [History Confirmed 06/28/24] Carvedilol 3.125 mg [Coreg 3.125 MG] 3.125 mg PO BID 04/25/21 [History Confirmed 06/28/24] Cholecalciferol (Vitamin D3) [Vitamin D3] 1 tab PO DAILY 04/25/21 [History Confirmed 06/28/24] Clopidogrel Bisulfate [PLAVIX Tablet] 75 mg PO DAILY 04/25/21 [History Confirmed 06/28/24] Digoxin 125 mcg PO DAILY 04/25/21 [History Confirmed 06/28/24] Empagliflozin [Jardiance] 25 mg PO DAILY 04/25/21 [History Confirmed 06/28/24] Gabapentin [Neurontin ] 600 mg PO TID 04/25/21 [History Confirmed 06/28/24] Mirabegron [Myrbetriq] 25 mg PO HS 04/25/21 [History Confirmed 06/28/24] Multivitamin 1 tablet PO DAILY 04/25/21 [History Confirmed 06/28/24] Glipizide/Metformin HCl [Glipizide-Metformin 5-500 mg] 1 each PO TID 30 Days #90 tablet 04/17/24 [Rx Confirmed 06/28/24] Insulin Glargine [Lantus Insulin] 25 units SQ DAILY #750 unit MDD 25 04/17/24 [Rx Confirmed 06/28/24] Exenatide Microspheres [Bydureon Bcise] 2 mg SQ WEEKLY 06/28/24 [History Confirmed 06/28/24] Allergies/Adverse Reactions: Allergies Allergy/AdvReac Type Severity Reaction Status Date / Time No Known Drug Allergies Allergy Verified 05/20/24 13:18 - Past Medical History Past Medical History: Yes Neurological History: No Pertinent History ENT History: Cataracts Cardiac History: Coronary Artery Disease, High Cholesterol, Hypertension Respiratory History: No Pertinent History Endocrine Medical History: Diabetes Type II Musculoskelatal History: No Pertinent History GI Medical History: No Pertinent History History: No Pertinent History Pyscho-Social History: No Pertinent History Male Reproductive Disorders: Prostate Problems Comment: back surgery (discectomy), 5 stents in heart(2014) - Past Surgical History Past Surgical History: Yes Neuro Surgical History: No Pertinent History Cardiac History: Cardiac Catheterization, Cardiac Stent Respiratory Surgery: No Pertinent History GI Surgical History: Appendectomy Genitourinary Surgical Hx: No Pertinent History Musculskeletal Surgical Hx: Other Male Surgical History: Prostate Surgery Other Surgical History: achilles tendon, back surgery (discectomy), 5 stents in heart(2014) Significant Family History: no pertinent family hx - Social History Smoking Status: Never smoker Exposure to second hand smoke: No Alcohol: None Drug Use: none - Social Determinants of Health Will the patient participate in the screening: Yes Do you worry about a steady place to live?: No Do you have any problems with any of the following?: No known problems In the past 12 months,have you had to go without utilities?: No Have you or anyone in your house had to go without enough: No Transportation Issues: No Has anyone in your support network made you feel unsafe?: No Does the patient want assistance with any of the above?: No Comment: needs assistance affording medicaitons - Physical Exam Vital Signs: Vital Signs - 24 hr Temp Pulse Resp BP BP BP Pulse Ox 06/28/24 17:50 99.7 F 101 H 22 151/74 92 L 06/28/24 17:10 96 06/28/24 17:00 94 H 25 H 149/83 93 L 06/28/24 16:30 100 H 25 H 150/81 91 L 06/28/24 16:00 104 H 23 149/82 97 06/28/24 15:30 88 24 148/79 94 L 06/28/24 15:00 105 H 25 H 138/83 94 L 06/28/24 14:30 103 H 26 H 133/81 95 06/28/24 14:00 116 H 20 124/76 96 06/28/24 13:30 98 H 25 H 142/88 93 L 06/28/24 13:00 102 H 26 H 155/83 93 L 06/28/24 12:30 102 H 25 H 139/84 94 L 06/28/24 12:00 107 H 28 H 160/88 94 L 06/28/24 11:30 102 H 29 H 151/83 92 L 06/28/24 11:15 116 H 15 157/104 92 L 06/28/24 11:14 99.3 F 102 H 22 157/104 96 General Appearance: no apparent distress Neurologic Exam: alert, oriented x 3, cooperative Eye Exam: PERRL/EOMI Ears, Nose, Throat Exam: normal ENT inspection Neck Exam: normal inspection Respiratory Exam: normal breath sounds, lungs clear Cardiovascular Exam: regular rate/rhythm, normal heart sounds Rectal Exam: deferred Back Exam: normal inspection Extremity Exam: normal inspection Skin Exam: normal color Results - Labs Lab/Micro Results: Lab Results-Last 24 Hours 06/28/24 06/28/24 06/28/24 Range/Units 12:04 12:11 12:11 WBC (4.23-9.07) x10^3/uL RBC (4.63-6.08) x10^6/uL Hgb (13.7-17.5) g/dL Hct (40.1-51.0) % MCV (79.0-92.2) fL MCH (25.7-32.2) pg MCHC (32.3-36.5) g/dL RDW (11.6-14.4) % Plt Count (163-337) x10^3/uL MPV (9.4-12.4) fL Gran % (34.0-67.9) % Immature Gran % (Auto) (0.001-0.429) % Nucleat RBC Rel Count (0.00-0.2) % Eos # (Auto) (0.04-0.54) x10^3/uL Immature Gran # (Auto) (0.001-0.031) x10^3u/L Absolute Lymphs (auto) (1.32-3.57) x10^3/uL Absolute Monos (auto) (0.30-0.82) x10^3/uL Absolute Nucleated RBC (0.00-0.012) x10^3u/L Lymphocytes % (21.8-53.1) % Monocytes % (5.3-12.2) % Eosinophils % (0.8-7.0) % Basophils % (0.2-1.2) % Absolute Granulocytes (1.78-5.38) x10^3/uL Basophils # (0.01-0.08) x10^3/uL Sodium (135-145) mmol/L Potassium (3.5-5.1) mmol/L Chloride (98-107) mmol/L Carbon Dioxide (22-30) mmol/L Anion Gap (5-15) MEQ/L BUN (9-20) mg/dL Creatinine (0.66-1.25) mg/dL Estimated GFR ML/MIN Glucose (74-106) mg/dL Lactic Acid (0.4-2.0) Calcium (8.4-10.2) mg/dL Magnesium (1.6-2.3) mg/dL Total Bilirubin (0.2-1.3) mg/dL AST (17-59) U/L ALT (0-50) U/L Alkaline Phosphatase (38-126) U/L Troponin I (0.000-0.033) ng/mL Serum Total Protein (6.3-8.2) g/dL Albumin (3.5-5.0) g/dL Amylase (30-110) U/L Lipase (23-300) U/L Urine Color Yellow (Yellow) Urine Appearance Clear (Clear) Urine pH 5.5 (4.6-8.0) Ur Specific Cot[place] >=1.030 A (1.005-1.030) Urine Protein Negative (Negative) Urine Glucose (UA) >=1000 A (Negative) mg/dL Urine Ketones 80 A (Negative) Urine Blood Negative (Negative) Urine Nitrite Negative (Negative) Urine Bilirubin Negative (Negative) Urine Urobilinogen 0.2 (0.2) mg/dL Ur Leukocyte Esterase Negative (Negative) U Hyaline Cast (Auto) NONE SEEN (0-2) /LPF Urine Microscopic RBC 6-10 A (0-5) /HPF Urine Microscopic WBC 3-5 (0-5) /HPF Ur Epithelial Cells None Seen (None Seen) /HPF Urine Bacteria Rare A (None Seen) /HPF Urine Culture Reflexed YES (NO) Monoscreen (NEGATIVE) Influenza Type A Ag POSITIVE A (NEGATIVE) Influenza Type B Ag NEGATIVE (NEGATIVE) RSV (PCR) NEGATIVE (NEGATIVE) SARS-CoV-2 (PCR) NEGATIVE (NEGATIVE) Group A Strep Antibody NOT DETECTED (NEGATIVE) Slides for Path Review 06/28/24 06/28/24 06/28/24 Range/Units 12:15 12:15 12:15 WBC 10.3 H (4.23-9.07) x10^3/uL RBC 4.72 (4.63-6.08) x10^6/uL Hgb 15.4 (13.7-17.5) g/dL Hct 46.0 (40.1-51.0) % MCV 97.5 H (79.0-92.2) fL MCH 32.6 H (25.7-32.2) pg MCHC 33.5 (32.3-36.5) g/dL RDW 13.5 (11.6-14.4) % Plt Count 145 L (163-337) x10^3/uL MPV 9.9 (9.4-12.4) fL Gran % 82.2 H (34.0-67.9) % Immature Gran % (Auto) 0.5 H (0.001-0.429) % Nucleat RBC Rel Count 0.0 (0.00-0.2) % Eos # (Auto) 0.03 L (0.04-0.54) x10^3/uL Immature Gran # (Auto) 0.05 H (0.001-0.031) x10^3u/L Absolute Lymphs (auto) 0.75 L (1.32-3.57) x10^3/uL Absolute Monos (auto) 0.92 H (0.30-0.82) x10^3/uL Absolute Nucleated RBC 0.00 (0.00-0.012) x10^3u/L Lymphocytes % 7.3 L (21.8-53.1) % Monocytes % 9.0 (5.3-12.2) % Eosinophils % 0.3 L (0.8-7.0) % Basophils % 0.7 (0.2-1.2) % Absolute Granulocytes 8.43 H (1.78-5.38) x10^3/uL Basophils # 0.07 (0.01-0.08) x10^3/uL Sodium 136 (135-145) mmol/L Potassium 4.7 (3.5-5.1) mmol/L Chloride 101 (98-107) mmol/L Carbon Dioxide 22 (22-30) mmol/L Anion Gap 16.6 H (5-15) MEQ/L BUN 15 (9-20) mg/dL Creatinine 0.82 (0.66-1.25) mg/dL Estimated GFR 84.0 ML/MIN Glucose 211 H (74-106) mg/dL Lactic Acid (0.4-2.0) Calcium 9.1 (8.4-10.2) mg/dL Magnesium 2.1 (1.6-2.3) mg/dL Total Bilirubin 0.80 (0.2-1.3) mg/dL AST 40 (17-59) U/L ALT 23 (0-50) U/L Alkaline Phosphatase 94 (38-126) U/L Troponin I < 0.012 (0.000-0.033) ng/mL Serum Total Protein 6.9 (6.3-8.2) g/dL Albumin 4.4 (3.5-5.0) g/dL Amylase 43 (30-110) U/L Lipase 58 (23-300) U/L Urine Color (Yellow) Urine Appearance (Clear) Urine pH (4.6-8.0) Ur Specific Cotter (1.005-1.030) Urine Protein (Negative) Urine Glucose (UA) (Negative) mg/dL Urine Ketones (Negative) Urine Blood (Negative) Urine Nitrite (Negative) Urine Bilirubin (Negative) Urine Urobilinogen (0.2) mg/dL Ur Leukocyte Esterase (Negative) U Hyaline Cast (Auto) (0-2) /LPF Urine Microscopic RBC (0-5) /HPF Urine Microscopic WBC (0-5) /HPF Ur Epithelial Cells (None Seen) /HPF Urine Bacteria (None Seen) /HPF Urine Culture Reflexed (NO) Monoscreen (NEGATIVE) Influenza Type A Ag (NEGATIVE) Influenza Type B Ag (NEGATIVE) RSV (PCR) (NEGATIVE) SARS-CoV-2 (PCR) (NEGATIVE) Group A Strep Antibody (NEGATIVE) Slides for Path Review YES 06/28/24 06/28/24 06/28/24 Range/Units 12:15 12:34 15:20 WBC (4.23-9.07) x10^3/uL RBC (4.63-6.08) x10^6/uL Hgb (13.7-17.5) g/dL Hct (40.1-51.0) % MCV (79.0-92.2) fL MCH (25.7-32.2) pg MCHC (32.3-36.5) g/dL RDW (11.6-14.4) % Plt Count (163-337) x10^3/uL MPV (9.4-12.4) fL Gran % (34.0-67.9) % Immature Gran % (Auto) (0.001-0.429) % Nucleat RBC Rel Count (0.00-0.2) % Eos # (Auto) (0.04-0.54) x10^3/uL Immature Gran # (Auto) (0.001-0.031) x10^3u/L Absolute Lymphs (auto) (1.32-3.57) x10^3/uL Absolute Monos (auto) (0.30-0.82) x10^3/uL Absolute Nucleated RBC (0.00-0.012) x10^3u/L Lymphocytes % (21.8-53.1) % Monocytes % (5.3-12.2) % Eosinophils % (0.8-7.0) % Basophils % (0.2-1.2) % Absolute Granulocytes (1.78-5.38) x10^3/uL Basophils # (0.01-0.08) x10^3/uL Sodium (135-145) mmol/L Potassium (3.5-5.1) mmol/L Chloride (98-107) mmol/L Carbon Dioxide (22-30) mmol/L Anion Gap (5-15) MEQ/L BUN (9-20) mg/dL Creatinine (0.66-1.25) mg/dL Estimated GFR ML/MIN Glucose (74-106) mg/dL Lactic Acid 2.0 (0.4-2.0) Calcium (8.4-10.2) mg/dL Magnesium (1.6-2.3) mg/dL Total Bilirubin (0.2-1.3) mg/dL AST (17-59) U/L ALT (0-50) U/L Alkaline Phosphatase (38-126) U/L Troponin I 0.013 (0.000-0.033) ng/mL Serum Total Protein (6.3-8.2) g/dL Albumin (3.5-5.0) g/dL Amylase (30-110) U/L Lipase (23-300) U/L Urine Color (Yellow) Urine Appearance (Clear) Urine pH (4.6-8.0) Ur Specific Cotter (1.005-1.030) Urine Protein (Negative) Urine Glucose (UA) (Negative) mg/dL Urine Ketones (Negative) Urine Blood (Negative) Urine Nitrite (Negative) Urine Bilirubin (Negative) Urine Urobilinogen (0.2) mg/dL Ur Leukocyte Esterase (Negative) U Hyaline Cast (Auto) (0-2) /LPF Urine Microscopic RBC (0-5) /HPF Urine Microscopic WBC (0-5) /HPF Ur Epithelial Cells (None Seen) /HPF Urine Bacteria (None Seen) /HPF Urine Culture Reflexed (NO) Monoscreen NEGATIVE (NEGATIVE) Influenza Type A Ag (NEGATIVE) Influenza Type B Ag (NEGATIVE) RSV (PCR) (NEGATIVE) SARS-CoV-2 (PCR) (NEGATIVE) Group A Strep Antibody (NEGATIVE) Slides for Path Review - Radiology Impressions Radiology Exams & Impressions: Radiology Procedures Category Date Time Status CHEST 1 VIEW (PORTABLE) Stat Exams 06/28/24 11:45 Completed Assessment/Plan (1) Influenza A Current Visit: Yes Status: Acute Assessment & Plan: -CXR reviewed with no acute findings -Supportive care with anti-pyrectics, anti-emetics, IVF -Tamiflu -Supplemental oxygen as needed to maintain spo2 goal > 92% Code(s): J10.1 - FLU DUE TO OTH IDENT INFLUENZA VIRUS W OTH RESP MANIFEST (2) Generalized weakness Current Visit: Yes Status: Acute Assessment & Plan: -Could be multifactorial with influenza -PT eval when able Code(s): R53.1 - WEAKNESS (3) HLD (hyperlipidemia) Current Visit: No Status: Acute Assessment & Plan: -continue home statin Code(s): E78.5 - HYPERLIPIDEMIA, UNSPECIFIED (4) HTN (hypertension) Current Visit: No Status: Acute Assessment & Plan: -continue home meds- bp stable Code(s): I10 - ESSENTIAL (PRIMARY) HYPERTENSION (5) CAD (coronary artery disease) Current Visit: No Status: Acute Assessment & Plan: -Reviewed echo from 05/17/23 EF estimated at 55-60% 1) NORMAL CONTRACTILITY OF THE LEFT VENTRICLE. 2) MODERATE LEFT ATRIAL DILATATION. 3) MILD TRICUSPID REGURGITATION. 4) TRACE AMOUNT OF PULMONIC REGURGITATION. -trops x 2 negative -continue home meds Code(s): I25.10 - ATHSCL HEART DISEASE OF [place] CORONARY ARTERY W/O ANG PCTRS (6) Type 2 diabetes mellitus Current Visit: No Status: Acute Assessment & Plan: -ADA diet -SSI/glargine -a1c 8.48 04/16/24 - poor control VTE: Lovenox Dispo: 1-2 days Code status: Full Telemedicine Encounter - Telemedicine Encounter Telemedicine Encounter: "The entirety of this encounter was performed via Telemedicine" This visit was performed using real-time audio and video connection between my location and thepatients locationwith the assistance of a surrogateat the patients location. Written or verbal consent was obtained from the patient/guardian to perform this visit usingsynchronoustelemedicine technology. Any patient questions regarding the telemedicine interaction were answered. <DEREKKELVIN - Last Filed: 06/28/24 19:03> History of Present Illness - Chief Complaint History of Present Illness: is a 88 year old male. - Physical Exam Vital Signs: Vital Signs - 24 hr Temp Pulse Resp BP BP BP Pulse Ox 06/28/24 17:50 99.7 F 101 H 22 151/74 92 L 06/28/24 17:10 96 06/28/24 17:00 94 H 25 H 149/83 93 L 06/28/24 16:30 100 H 25 H 150/81 91 L 06/28/24 16:00 104 H 23 149/82 97 06/28/24 15:30 88 24 148/79 94 L 06/28/24 15:00 105 H 25 H 138/83 94 L 06/28/24 14:30 103 H 26 H 133/81 95 06/28/24 14:00 116 H 20 124/76 96 06/28/24 13:30 98 H 25 H 142/88 93 L 06/28/24 13:00 102 H 26 H 155/83 93 L 06/28/24 12:30 102 H 25 H 139/84 94 L 06/28/24 12:00 107 H 28 H 160/88 94 L 06/28/24 11:30 102 H 29 H 151/83 92 L 06/28/24 11:15 116 H 15 157/104 92 L 06/28/24 11:14 99.3 F 102 H 22 157/104 96 Results - Labs Lab/Micro Results: Lab Results-Last 24 Hours 06/28/24 06/28/24 06/28/24 Range/Units 12:04 12:11 12:11 WBC (4.23-9.07) x10^3/uL RBC (4.63-6.08) x10^6/uL Hgb (13.7-17.5) g/dL Hct (40.1-51.0) % MCV (79.0-92.2) fL MCH (25.7-32.2) pg MCHC (32.3-36.5) g/dL RDW (11.6-14.4) % Plt Count (163-337) x10^3/uL MPV (9.4-12.4) fL Gran % (34.0-67.9) % Immature Gran % (Auto) (0.001-0.429) % Nucleat RBC Rel Count (0.00-0.2) % Eos # (Auto) (0.04-0.54) x10^3/uL Immature Gran # (Auto) (0.001-0.031) x10^3u/L Absolute Lymphs (auto) (1.32-3.57) x10^3/uL Absolute Monos (auto) (0.30-0.82) x10^3/uL Absolute Nucleated RBC (0.00-0.012) x10^3u/L Lymphocytes % (21.8-53.1) % Monocytes % (5.3-12.2) % Eosinophils % (0.8-7.0) % Basophils % (0.2-1.2) % Absolute Granulocytes (1.78-5.38) x10^3/uL Basophils # (0.01-0.08) x10^3/uL Sodium (135-145) mmol/L Potassium (3.5-5.1) mmol/L Chloride (98-107) mmol/L Carbon Dioxide (22-30) mmol/L Anion Gap (5-15) MEQ/L BUN (9-20) mg/dL Creatinine (0.66-1.25) mg/dL Estimated GFR ML/MIN Glucose (74-106) mg/dL Lactic Acid (0.4-2.0) Calcium (8.4-10.2) mg/dL Magnesium (1.6-2.3) mg/dL Total Bilirubin (0.2-1.3) mg/dL AST (17-59) U/L ALT (0-50) U/L Alkaline Phosphatase (38-126) U/L Troponin I (0.000-0.033) ng/mL Serum Total Protein (6.3-8.2) g/dL Albumin (3.5-5.0) g/dL Amylase (30-110) U/L Lipase (23-300) U/L Urine Color Yellow (Yellow) Urine Appearance Clear (Clear) Urine pH 5.5 (4.6-8.0) Ur Specific Cot[place] >=1.030 A (1.005-1.030) Urine Protein Negative (Negative) Urine Glucose (UA) >=1000 A (Negative) mg/dL Urine Ketones 80 A (Negative) Urine Blood Negative (Negative) Urine Nitrite Negative (Negative) Urine Bilirubin Negative (Negative) Urine Urobilinogen 0.2 (0.2) mg/dL Ur Leukocyte Esterase Negative (Negative) U Hyaline Cast (Auto) NONE SEEN (0-2) /LPF Urine Microscopic RBC 6-10 A (0-5) /HPF Urine Microscopic WBC 3-5 (0-5) /HPF Ur Epithelial Cells None Seen (None Seen) /HPF Urine Bacteria Rare A (None Seen) /HPF Urine Culture Reflexed YES (NO) Monoscreen (NEGATIVE) Influenza Type A Ag POSITIVE A (NEGATIVE) Influenza Type B Ag NEGATIVE (NEGATIVE) RSV (PCR) NEGATIVE (NEGATIVE) SARS-CoV-2 (PCR) NEGATIVE (NEGATIVE) Group A Strep Antibody NOT DETECTED (NEGATIVE) Slides for Path Review 06/28/24 06/28/24 06/28/24 Range/Units 12:15 12:15 12:15 WBC 10.3 H (4.23-9.07) x10^3/uL RBC 4.72 (4.63-6.08) x10^6/uL Hgb 15.4 (13.7-17.5) g/dL Hct 46.0 (40.1-51.0) % MCV 97.5 H (79.0-92.2) fL MCH 32.6 H (25.7-32.2) pg MCHC 33.5 (32.3-36.5) g/dL RDW 13.5 (11.6-14.4) % Plt Count 145 L (163-337) x10^3/uL MPV 9.9 (9.4-12.4) fL Gran % 82.2 H (34.0-67.9) % Immature Gran % (Auto) 0.5 H (0.001-0.429) % Nucleat RBC Rel Count 0.0 (0.00-0.2) % Eos # (Auto) 0.03 L (0.04-0.54) x10^3/uL Immature Gran # (Auto) 0.05 H (0.001-0.031) x10^3u/L Absolute Lymphs (auto) 0.75 L (1.32-3.57) x10^3/uL Absolute Monos (auto) 0.92 H (0.30-0.82) x10^3/uL Absolute Nucleated RBC 0.00 (0.00-0.012) x10^3u/L Lymphocytes % 7.3 L (21.8-53.1) % Monocytes % 9.0 (5.3-12.2) % Eosinophils % 0.3 L (0.8-7.0) % Basophils % 0.7 (0.2-1.2) % Absolute Granulocytes 8.43 H (1.78-5.38) x10^3/uL Basophils # 0.07 (0.01-0.08) x10^3/uL Sodium 136 (135-145) mmol/L Potassium 4.7 (3.5-5.1) mmol/L Chloride 101 (98-107) mmol/L Carbon Dioxide 22 (22-30) mmol/L Anion Gap 16.6 H (5-15) MEQ/L BUN 15 (9-20) mg/dL Creatinine 0.82 (0.66-1.25) mg/dL Estimated GFR 84.0 ML/MIN Glucose 211 H (74-106) mg/dL Lactic Acid (0.4-2.0) Calcium 9.1 (8.4-10.2) mg/dL Magnesium 2.1 (1.6-2.3) mg/dL Total Bilirubin 0.80 (0.2-1.3) mg/dL AST 40 (17-59) U/L ALT 23 (0-50) U/L Alkaline Phosphatase 94 (38-126) U/L Troponin I < 0.012 (0.000-0.033) ng/mL Serum Total Protein 6.9 (6.3-8.2) g/dL Albumin 4.4 (3.5-5.0) g/dL Amylase 43 (30-110) U/L Lipase 58 (23-300) U/L Urine Color (Yellow) Urine Appearance (Clear) Urine pH (4.6-8.0) Ur Specific Cotter (1.005-1.030) Urine Protein (Negative) Urine Glucose (UA) (Negative) mg/dL Urine Ketones (Negative) Urine Blood (Negative) Urine Nitrite (Negative) Urine Bilirubin (Negative) Urine Urobilinogen (0.2) mg/dL Ur Leukocyte Esterase (Negative) U Hyaline Cast (Auto) (0-2) /LPF Urine Microscopic RBC (0-5) /HPF Urine Microscopic WBC (0-5) /HPF Ur Epithelial Cells (None Seen) /HPF Urine Bacteria (None Seen) /HPF Urine Culture Reflexed (NO) Monoscreen (NEGATIVE) Influenza Type A Ag (NEGATIVE) Influenza Type B Ag (NEGATIVE) RSV (PCR) (NEGATIVE) SARS-CoV-2 (PCR) (NEGATIVE) Group A Strep Antibody (NEGATIVE) Slides for Path Review YES 06/28/24 06/28/24 06/28/24 Range/Units 12:15 12:34 15:20 WBC (4.23-9.07) x10^3/uL RBC (4.63-6.08) x10^6/uL Hgb (13.7-17.5) g/dL Hct (40.1-51.0) % MCV (79.0-92.2) fL MCH (25.7-32.2) pg MCHC (32.3-36.5) g/dL RDW (11.6-14.4) % Plt Count (163-337) x10^3/uL MPV (9.4-12.4) fL Gran % (34.0-67.9) % Immature Gran % (Auto) (0.001-0.429) % Nucleat RBC Rel Count (0.00-0.2) % Eos # (Auto) (0.04-0.54) x10^3/uL Immature Gran # (Auto) (0.001-0.031) x10^3u/L Absolute Lymphs (auto) (1.32-3.57) x10^3/uL Absolute Monos (auto) (0.30-0.82) x10^3/uL Absolute Nucleated RBC (0.00-0.012) x10^3u/L Lymphocytes % (21.8-53.1) % Monocytes % (5.3-12.2) % Eosinophils % (0.8-7.0) % Basophils % (0.2-1.2) % Absolute Granulocytes (1.78-5.38) x10^3/uL Basophils # (0.01-0.08) x10^3/uL Sodium (135-145) mmol/L Potassium (3.5-5.1) mmol/L Chloride (98-107) mmol/L Carbon Dioxide (22-30) mmol/L Anion Gap (5-15) MEQ/L BUN (9-20) mg/dL Creatinine (0.66-1.25) mg/dL Estimated GFR ML/MIN Glucose (74-106) mg/dL Lactic Acid 2.0 (0.4-2.0) Calcium (8.4-10.2) mg/dL Magnesium (1.6-2.3) mg/dL Total Bilirubin (0.2-1.3) mg/dL AST (17-59) U/L ALT (0-50) U/L Alkaline Phosphatase (38-126) U/L Troponin I 0.013 (0.000-0.033) ng/mL Serum Total Protein (6.3-8.2) g/dL Albumin (3.5-5.0) g/dL Amylase (30-110) U/L Lipase (23-300) U/L Urine Color (Yellow) Urine Appearance (Clear) Urine pH (4.6-8.0) Ur Specific Cotter (1.005-1.030) Urine Protein (Negative) Urine Glucose (UA) (Negative) mg/dL Urine Ketones (Negative) Urine Blood (Negative) Urine Nitrite (Negative) Urine Bilirubin (Negative) Urine Urobilinogen (0.2) mg/dL Ur Leukocyte Esterase (Negative) U Hyaline Cast (Auto) (0-2) /LPF Urine Microscopic RBC (0-5) /HPF Urine Microscopic WBC (0-5) /HPF Ur Epithelial Cells (None Seen) /HPF Urine Bacteria (None Seen) /HPF Urine Culture Reflexed (NO) Monoscreen NEGATIVE (NEGATIVE) Influenza Type A Ag (NEGATIVE) Influenza Type B Ag (NEGATIVE) RSV (PCR) (NEGATIVE) SARS-CoV-2 (PCR) (NEGATIVE) Group A Strep Antibody (NEGATIVE) Slides for Path Review - Radiology Impressions Radiology Exams & Impressions: Radiology Procedures Category Date Time Status CHEST 1 VIEW (PORTABLE) Stat Exams 06/28/24 11:45 Completed Telemedicine Encounter - Telemedicine Encounter Telemedicine Encounter: "The entirety of this encounter was performed via Telemedicine" This visit was performed using real-time audio and video connection between my location and thepatients locationwith the assistance of a surrogateat the patients location. Written or verbal consent was obtained from the loni ent/guardian to perform this visit usingsynchrTamar Energytelemedicine technology. Any patient questions regarding the telemedicine interaction were answered. LINDSEY Encounter - LINDSEY Encounter Attestation LINDSEY Encounter Attestation: "BURTON Ramirez andhavediscussed pertinent aspects of their care with Ranjith Trujillo agree with the history, physical exam (any modifications based on my personal exam will be noted below), assessment, and plan as outlined in original note. Please see immediately below for my summary of findings and additional assessment and plan along with any meaningful corrections/explanations to the Subjective/Objective portions of the LINDSEY note will be noted." My portion of the encounter took place via telemedicine. Patient presenting with severe weakness with inability to care for himself secondary to influenza. Will treat with Tamiflu and provide supportive care and reassess tomorrow.
[2024-06-28] MEDS ORDERED: Zofran 4 MG/2 ML VIAL IV PRN (18:41)
[2024-06-28] MEDS: Sodium Chloride 0.9% 1000 ML 1,000 ML IV SCH (19:42)
[2024-06-28] MEDS: Tamiflu 75MG Capsule PO SCH (23:20)
--- NOTE | 2024-06-29 05:36 | PCM.NOTE ---
Date and Time: 06/29/24 0535 Subjective Assessment: Mr. Colindres is an 88 year old male with a pmhx of DMII, HLD, CAD, HTN and BPH who presented to ED 06/28/24 with complaints of weakness and incontinence. Patient is [place] and a poor historian. Reports weakness is so severe he has been unable to care for himself at home. States he was unable to get up to go to the bathroom and had several incontinence episodes while waiting for family to arrive and help. Denies fever, shortness of breath, nausea, vomiting, diarrhea, headache. No recent sick contacts that he knows of. Upon arrival to ED, patient hypertensive and tachycardic. EKG per ED read -RATE (109), Sinus Tach, Left [place] Deviation, Other (QTc = 485). CXR with no acute findings. Labs remarkable for mild leukocytosis with WBC at 10.3 and FLU A positive. Patient given IVF bolus, ceftriaxone, and azithromycin in ED. Admit for influenza A and generalized weakness. 06/29: Met with patient and daughter bedside. Patient feeling better today. Energy level somewhat improved. Walking with assistance to the restroom. 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 Blood cultures x 1 positive-? if this may be contamination. Pending results. Will continue Tamiflu for now. - Review of Systems Constitutional: Weakness Eyes: No Symptoms Ears, Nose, & Throat: No Symptoms Respiratory: Cough Cardiac: No Symptoms Abdominal/Gastrointestinal: No Symptoms Genitourinary Symptoms: No Symptoms Musculoskeletal: No Symptoms Skin: No Symptoms Neurological: No Symptoms Psychological: No Symptoms Endocrine: No Symptoms Hematologic/Lymphatic: No Symptoms Immunological/Allergic: No Symptoms Objective Exam General Appearance: no apparent distress Neurologic Exam: alert, oriented x 3, cooperative Eye Exam: PERRL Ears, Nose, Throat Exam: TM abnormal (R) Neck Exam: normal inspection Respiratory Exam: crackles/rales Cardiovascular Exam: regular rate/rhythm, normal heart sounds Gastrointestinal/Abdomen Exam: soft, normal bowel sounds Extremity Exam: normal inspection Back Exam: normal inspection Male Genitalia Exam: deferred Rectal Exam: deferred Objective Data Vital Signs: Vital Signs - 24 hr Temp Pulse Resp BP BP BP Pulse Ox 06/28/24 23:58 98.4 F 64 20 118/58 95 06/28/24 20:00 99.4 F 60 19 139/68 93 L 06/28/24 17:50 99.7 F 101 H 22 151/74 92 L 06/28/24 17:20 101 H 06/28/24 17:10 96 06/28/24 17:00 94 H 25 H 149/83 93 L 06/28/24 16:30 100 H 25 H 150/81 91 L 06/28/24 16:00 104 H 23 149/82 97 06/28/24 15:30 88 24 148/79 94 L 06/28/24 15:00 105 H 25 H 138/83 94 L 06/28/24 14:30 103 H 26 H 133/81 95 06/28/24 14:00 116 H 20 124/76 96 06/28/24 13:30 98 H 25 H 142/88 93 L 06/28/24 13:00 102 H 26 H 155/83 93 L 06/28/24 12:30 102 H 25 H 139/84 94 L 06/28/24 12:00 107 H 28 H 160/88 94 L 06/28/24 11:30 102 H 29 H 151/83 92 L 06/28/24 11:15 116 H 15 157/104 92 L 06/28/24 11:14 99.3 F 102 H 22 157/104 96 Pain Assessment - Last Documented Pain Intensity 0 Intake and Output: Intake & Output 06/26/24 06/27/24 06/28/24 06/29/24 11:59 11:59 11:59 11:59 Intake Total 300 Output Total 400 Balance -100 Weight 82.7 kg 83.1 kg Lab Results: Lab Results-Last 24 Hours 06/28/24 06/28/24 06/28/24 Range/Units 12:04 12:11 12:11 WBC (4.23-9.07) x10^3/uL RBC (4.63-6.08) x10^6/uL Hgb (13.7-17.5) g/dL Hct (40.1-51.0) % MCV (79.0-92.2) fL MCH (25.7-32.2) pg MCHC (32.3-36.5) g/dL RDW (11.6-14.4) % Plt Count (163-337) x10^3/uL MPV (9.4-12.4) fL Gran % (34.0-67.9) % Immature Gran % (Auto) (0.001-0.429) % Nucleat RBC Rel Count (0.00-0.2) % Eos # (Auto) (0.04-0.54) x10^3/uL Immature Gran # (Auto) (0.001-0.031) x10^3u/L Absolute Lymphs (auto) (1.32-3.57) x10^3/uL Absolute Monos (auto) (0.30-0.82) x10^3/uL Absolute Nucleated RBC (0.00-0.012) x10^3u/L Lymphocytes % (21.8-53.1) % Monocytes % (5.3-12.2) % Eosinophils % (0.8-7.0) % Basophils % (0.2-1.2) % Absolute Granulocytes (1.78-5.38) x10^3/uL Basophils # (0.01-0.08) x10^3/uL Sodium (135-145) mmol/L Potassium (3.5-5.1) mmol/L Chloride (98-107) mmol/L Carbon Dioxide (22-30) mmol/L Anion Gap (5-15) MEQ/L BUN (9-20) mg/dL Creatinine (0.66-1.25) mg/dL Estimated GFR ML/MIN Glucose (74-106) mg/dL POC Glucometer (74 to 106) mg/dL Lactic Acid (0.4-2.0) Calcium (8.4-10.2) mg/dL Magnesium (1.6-2.3) mg/dL Total Bilirubin (0.2-1.3) mg/dL AST (17-59) U/L ALT (0-50) U/L Alkaline Phosphatase (38-126) U/L Troponin I (0.000-0.033) ng/mL Serum Total Protein (6.3-8.2) g/dL Albumin (3.5-5.0) g/dL Amylase (30-110) U/L Lipase (23-300) U/L TSH 3rd Generation (0.470-4.680) mIU/L Urine Color Yellow (Yellow) Urine Appearance Clear (Clear) Urine pH 5.5 (4.6-8.0) Ur Specific [place] >=1.030 A (1.005-1.030) Urine Protein Negative (Negative) Urine Glucose (UA) >=1000 A (Negative) mg/dL Urine Ketones 80 A (Negative) Urine Blood Negative (Negative) Urine Nitrite Negative (Negative) Urine Bilirubin Negative (Negative) Urine Urobilinogen 0.2 (0.2) mg/dL Ur Leukocyte Esterase Negative (Negative) U Hyaline Cast (Auto) NONE SEEN (0-2) /LPF Urine Microscopic RBC 6-10 A (0-5) /HPF Urine Microscopic WBC 3-5 (0-5) /HPF Ur Epithelial Cells None Seen (None Seen) /HPF Urine Bacteria Rare A (None Seen) /HPF Urine Culture Reflexed YES (NO) Monoscreen (NEGATIVE) Influenza Type A Ag POSITIVE A (NEGATIVE) Influenza Type B Ag NEGATIVE (NEGATIVE) RSV (PCR) NEGATIVE (NEGATIVE) SARS-CoV-2 (PCR) NEGATIVE (NEGATIVE) Group A Strep Antibody NOT DETECTED (NEGATIVE) Slides for Path Review 06/28/24 06/28/24 06/28/24 Range/Units 12:15 12:15 12:15 WBC 10.3 H (4.23-9.07) x10^3/uL RBC 4.72 (4.63-6.08) x10^6/uL Hgb 15.4 (13.7-17.5) g/dL Hct 46.0 (40.1-51.0) % MCV 97.5 H (79.0-92.2) fL MCH 32.6 H (25.7-32.2) pg MCHC 33.5 (32.3-36.5) g/dL RDW 13.5 (11.6-14.4) % Plt Count 145 L (163-337) x10^3/uL MPV 9.9 (9.4-12.4) fL Gran % 82.2 H (34.0-67.9) % Immature Gran % (Auto) 0.5 H (0.001-0.429) % Nucleat RBC Rel Count 0.0 (0.00-0.2) % Eos # (Auto) 0.03 L (0.04-0.54) x10^3/uL Immature Gran # (Auto) 0.05 H (0.001-0.031) x10^3u/L Absolute Lymphs (auto) 0.75 L (1.32-3.57) x10^3/uL Absolute Monos (auto) 0.92 H (0.30-0.82) x10^3/uL Absolute Nucleated RBC 0.00 (0.00-0.012) x10^3u/L Lymphocytes % 7.3 L (21.8-53.1) % Monocytes % 9.0 (5.3-12.2) % Eosinophils % 0.3 L (0.8-7.0) % Basophils % 0.7 (0.2-1.2) % Absolute Granulocytes 8.43 H (1.78-5.38) x10^3/uL Basophils # 0.07 (0.01-0.08) x10^3/uL Sodium 136 (135-145) mmol/L Potassium 4.7 (3.5-5.1) mmol/L Chloride 101 (98-107) mmol/L Carbon Dioxide 22 (22-30) mmol/L Anion Gap 16.6 H (5-15) MEQ/L BUN 15 (9-20) mg/dL Creatinine 0.82 (0.66-1.25) mg/dL Estimated GFR 84.0 ML/MIN Glucose 211 H (74-106) mg/dL POC Glucometer (74 to 106) mg/dL Lactic Acid (0.4-2.0) Calcium 9.1 (8.4-10.2) mg/dL Magnesium 2.1 (1.6-2.3) mg/dL Total Bilirubin 0.80 (0.2-1.3) mg/dL AST 40 (17-59) U/L ALT 23 (0-50) U/L Alkaline Phosphatase 94 (38-126) U/L Troponin I < 0.012 (0.000-0.033) ng/mL Serum Total Protein 6.9 (6.3-8.2) g/dL Albumin 4.4 (3.5-5.0) g/dL Amylase 43 (30-110) U/L Lipase 58 (23-300) U/L TSH 3rd Generation (0.470-4.680) mIU/L Urine Color (Yellow) Urine Appearance (Clear) Urine pH (4.6-8.0) Ur Specific [place] (1.005-1.030) Urine Protein (Negative) Urine Glucose (UA) (Negative) mg/dL Urine Ketones (Negative) Urine Blood (Negative) Urine Nitrite (Negative) Urine Bilirubin (Negative) Urine Urobilinogen (0.2) mg/dL Ur Leukocyte Esterase (Negative) U Hyaline Cast (Auto) (0-2) /LPF Urine Microscopic RBC (0-5) /HPF Urine Microscopic WBC (0-5) /HPF Ur Epithelial Cells (None Seen) /HPF Urine Bacteria (None Seen) /HPF Urine Culture Reflexed (NO) Monoscreen (NEGATIVE) Influenza Type A Ag (NEGATIVE) Influenza Type B Ag (NEGATIVE) RSV (PCR) (NEGATIVE) SARS-CoV-2 (PCR) (NEGATIVE) Group A Strep Antibody (NEGATIVE) Slides for Path Review YES 06/28/24 06/28/24 06/28/24 Range/Units 12:15 12:34 15:20 WBC (4.23-9.07) x10^3/uL RBC (4.63-6.08) x10^6/uL Hgb (13.7-17.5) g/dL Hct (40.1-51.0) % MCV (79.0-92.2) fL MCH (25.7-32.2) pg MCHC (32.3-36.5) g/dL RDW (11.6-14.4) % Plt Count (163-337) x10^3/uL MPV (9.4-12.4) fL Gran % (34.0-67.9) % Immature Gran % (Auto) (0.001-0.429) % Nucleat RBC Rel Count (0.00-0.2) % Eos # (Auto) (0.04-0.54) x10^3/uL Immature Gran # (Auto) (0.001-0.031) x10^3u/L Absolute Lymphs (auto) (1.32-3.57) x10^3/uL Absolute Monos (auto) (0.30-0.82) x10^3/uL Absolute Nucleated RBC (0.00-0.012) x10^3u/L Lymphocytes % (21.8-53.1) % Monocytes % (5.3-12.2) % Eosinophils % (0.8-7.0) % Basophils % (0.2-1.2) % Absolute Granulocytes (1.78-5.38) x10^3/uL Basophils # (0.01-0.08) x10^3/uL Sodium (135-145) mmol/L Potassium (3.5-5.1) mmol/L Chloride (98-107) mmol/L Carbon Dioxide (22-30) mmol/L Anion Gap (5-15) MEQ/L BUN (9-20) mg/dL Creatinine (0.66-1.25) mg/dL Estimated GFR ML/MIN Glucose (74-106) mg/dL POC Glucometer (74 to 106) mg/dL Lactic Acid 2.0 (0.4-2.0) Calcium (8.4-10.2) mg/dL Magnesium (1.6-2.3) mg/dL Total Bilirubin (0.2-1.3) mg/dL AST (17-59) U/L ALT (0-50) U/L Alkaline Phosphatase (38-126) U/L Troponin I 0.013 (0.000-0.033) ng/mL Serum Total Protein (6.3-8.2) g/dL Albumin (3.5-5.0) g/dL Amylase (30-110) U/L Lipase (23-300) U/L TSH 3rd Generation (0.470-4.680) mIU/L Urine Color (Yellow) Urine Appearance (Clear) Urine pH (4.6-8.0) Ur Specific [place] (1.005-1.030) Urine Protein (Negative) Urine Glucose (UA) (Negative) mg/dL Urine Ketones (Negative) Urine Blood (Negative) Urine Nitrite (Negative) Urine Bilirubin (Negative) Urine Urobilinogen (0.2) mg/dL Ur Leukocyte Esterase (Negative) U Hyaline Cast (Auto) (0-2) /LPF Urine Microscopic RBC (0-5) /HPF Urine Microscopic WBC (0-5) /HPF Ur Epithelial Cells (None Seen) /HPF Urine Bacteria (None Seen) /HPF Urine Culture Reflexed (NO) Monoscreen NEGATIVE (NEGATIVE) Influenza Type A Ag (NEGATIVE) Influenza Type B Ag (NEGATIVE) RSV (PCR) (NEGATIVE) SARS-CoV-2 (PCR) (NEGATIVE) Group A Strep Antibody (NEGATIVE) Slides for Path Review 06/28/24 06/28/24 06/28/24 Range/Units 18:41 19:47 22:53 WBC (4.23-9.07) x10^3/uL RBC (4.63-6.08) x10^6/uL Hgb (13.7-17.5) g/dL Hct (40.1-51.0) % MCV (79.0-92.2) fL MCH (25.7-32.2) pg MCHC (32.3-36.5) g/dL RDW (11.6-14.4) % Plt Count (163-337) x10^3/uL MPV (9.4-12.4) fL Gran % (34.0-67.9) % Immature Gran % (Auto) (0.001-0.429) % Nucleat RBC Rel Count (0.00-0.2) % Eos # (Auto) (0.04-0.54) x10^3/uL Immature Gran # (Auto) (0.001-0.031) x10^3u/L Absolute Lymphs (auto) (1.32-3.57) x10^3/uL Absolute Monos (auto) (0.30-0.82) x10^3/uL Absolute Nucleated RBC (0.00-0.012) x10^3u/L Lymphocytes % (21.8-53.1) % Monocytes % (5.3-12.2) % Eosinophils % (0.8-7.0) % Basophils % (0.2-1.2) % Absolute Granulocytes (1.78-5.38) x10^3/uL Basophils # (0.01-0.08) x10^3/uL Sodium (135-145) mmol/L Potassium (3.5-5.1) mmol/L Chloride (98-107) mmol/L Carbon Dioxide (22-30) mmol/L Anion Gap (5-15) MEQ/L BUN (9-20) mg/dL Creatinine (0.66-1.25) mg/dL Estimated GFR ML/MIN Glucose (74-106) mg/dL POC Glucometer 147 H (74 to 106) mg/dL Lactic Acid (0.4-2.0) Calcium (8.4-10.2) mg/dL Magnesium (1.6-2.3) mg/dL Total Bilirubin (0.2-1.3) mg/dL AST (17-59) U/L ALT (0-50) U/L Alkaline Phosphatase (38-126) U/L Troponin I 0.015 (0.000-0.033) ng/mL Serum Total Protein (6.3-8.2) g/dL Albumin (3.5-5.0) g/dL Amylase (30-110) U/L Lipase (23-300) U/L TSH 3rd Generation 0.034 L (0.470-4.680) mIU/L Urine Color (Yellow) Urine Appearance (Clear) Urine pH (4.6-8.0) Ur Specific [place] (1.005-1.030) Urine Protein (Negative) Urine Glucose (UA) (Negative) mg/dL Urine Ketones (Negative) Urine Blood (Negative) Urine Nitrite (Negative) Urine Bilirubin (Negative) Urine Urobilinogen (0.2) mg/dL Ur Leukocyte Esterase (Negative) U Hyaline Cast (Auto) (0-2) /LPF Urine Microscopic RBC (0-5) /HPF Urine Microscopic WBC (0-5) /HPF Ur Epithelial Cells (None Seen) /HPF Urine Bacteria (None Seen) /HPF Urine Culture Reflexed (NO) Monoscreen (NEGATIVE) Influenza Type A Ag (NEGATIVE) Influenza Type B Ag (NEGATIVE) RSV (PCR) (NEGATIVE) SARS-CoV-2 (PCR) (NEGATIVE) Group A Strep Antibody (NEGATIVE) Slides for Path Review Radiology Exams: Radiology Procedures Category Date Time Status CHEST 1 VIEW (PORTABLE) Stat Exams 06/28/24 11:45 Completed Assessment/Plan (1) Influenza A Current Visit: Yes Status: Acute Assessment & Plan: -CXR reviewed with no acute findings -Supportive care with anti-pyrectics, anti-emetics, IVF -Tamiflu -Supplemental oxygen as needed to maintain spo2 goal > 92% 06/29: -continue tamiflu -bcult x 1 positive? contamination -WBC reviewed and wnl at 7.7 - hold abx for now Code(s): J10.1 - FLU DUE TO OTH IDENT INFLUENZA VIRUS W OTH RESP MANIFEST (2) Generalized weakness Current Visit: Yes Status: Acute Assessment & Plan: -Could be multifactorial with influenza -PT eval when able Code(s): R53.1 - WEAKNESS (3) HLD (hyperlipidemia) Current Visit: No Status: Acute Assessment & Plan: -continue home statin Code(s): E78.5 - HYPERLIPIDEMIA, UNSPECIFIED (4) HTN (hypertension) Current Visit: No Status: Acute Assessment & Plan: -continue home meds- bp stable Code(s): I10 - ESSENTIAL (PRIMARY) HYPERTENSION (5) CAD (coronary artery disease) Current Visit: No Status: Acute Assessment & Plan: -Reviewed echo from 05/17/23 EF estimated at 55-60% 1) NORMAL CONTRACTILITY OF THE LEFT VENTRICLE. 2) MODERATE LEFT ATRIAL DILATATION. 3) MILD TRICUSPID REGURGITATION. 4) TRACE AMOUNT OF PULMONIC REGURGITATION. -trops x 2 negative -continue home meds Code(s): I25.10 - ATHSCL HEART DISEASE OF [place] CORONARY ARTERY W/O ANG PCTRS (6) Type 2 diabetes mellitus Current Visit: No Status: Acute Assessment & Plan: -ADA diet -SSI/glargine -a1c 8.48 04/16/24 - poor control VTE: Lovenox Dispo: 1-2 days Code status: Full Code(s): J10.1 - FLU DUE TO OTH IDENT INFLUENZA VIRUS W OTH RESP MANIFEST (2) Generalized weakness Current Visit: Yes Status: Acute Code(s): R53.1 - WEAKNESS (3) HLD (hyperlipidemia) Current Visit: No Status: Acute Code(s): E78.5 - HYPERLIPIDEMIA, UNSPECIFIED (4) HTN (hypertension) Current Visit: No Status: Acute Code(s): I10 - ESSENTIAL (PRIMARY) HYPERTENSION (5) CAD (coronary artery disease) Current Visit: No Status: Acute Code(s): I25.10 - ATHSCL HEART DISEASE OF [place] CORONARY ARTERY W/O ANG PCTRS (6) Type 2 diabetes mellitus Current Visit: No Status: Acute
[2024-06-29 06:46] LABS: Hemoglobin 13.4 g/dL (13.7-17.5); Mean Cell Volume 97.3 fL (79.0-92.2); Mean Corpuscular Hemoglobin 32.6 pg (25.7-32.2); Mean Corpuscular Hgb Concent. 33.5 g/dL (32.3-36.5); Mean Platelet Volume 9.2 fL (9.4-12.4); Platelet Count 149 x10^3/uL (163-337); Red Blood Count 4.11 x10^6/uL (4.63-6.08); Red Cell Distribution Width 13.6 % (11.6-14.4); White Blood Count 7.7 x10^3/uL (4.23-9.07)
[2024-06-29 07:36] LABS: ANION GAP 16.3 MEQ/L (5-15); Calcium 7.9 mg/dL (8.4-10.2); Creatinine 1 0.82 mg/dL (0.66-1.25); PREALBUMIN 15.14 mg/dL (17.6-36.0); Potassium 4.3 mmol/L (3.5-5.1)
[2024-06-29] MEDS: ENOXAPARIN SODIUM SQ SCH (11:41)
[2024-06-29] MEDS: HUMALOG SQ PRN (13:01)
--- NOTE | 2024-06-30 05:30 | PCM.NOTE ---
Date and Time: 06/30/2429 Subjective Assessment: Mr. Colindres is an 88 year old male with a pmhx of DMII, HLD, CAD, HTN and BPH who presented to ED 06/28/24 with complaints of weakness and incontinence. Patient is [place] and a poor historian. Reports weakness is so severe he has been unable to care for himself at home. States he was unable to get up to go to the bathroom and had several incontinence episodes while waiting for family to arrive and help. Denies fever, shortness of breath, nausea, vomiting, diarrhea, headache. No recent sick contacts that he knows of. Upon arrival to ED, patient hypertensive and tachycardic. EKG per ED read -RATE (109), Sinus Tach, Left [place] Deviation, Other (QTc = 485). CXR with no acute findings. Labs remarkable for mild leukocytosis with WBC at 10.3 and FLU A positive. Patient given IVF bolus, ceftriaxone, and azithromycin in ED. Admit for influenza A and generalized weakness. 06/29: Met with patient and daughter bedside. Patient feeling better today. Energy level somewhat improved. Walking with assistance to the restroom. 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 Blood cultures x 1 positive-? if this may be contamination. Pending results. Will continue Tamiflu for now. Objective Data Vital Signs: Vital Signs - 24 hr Temp Pulse Resp BP BP Pulse Ox 06/29/24 23:00 98.9 F 85 20 124/68 93 L 06/29/24 19:00 98.0 F 96 H 20 152/72 91 L 06/29/24 17:20 85 06/29/24 15:00 97.4 F 86 17 147/63 157/104 95 06/29/24 11:00 96.6 F 84 16 125/66 157/104 94 L 06/29/24 07:00 98.8 F 83 17 108/57 157/104 94 L Pain Assessment - Last Documented Pain Intensity 0 Intake and Output: Intake & Output 06/27/24 06/28/24 06/29/24 06/30/24 11:59 11:59 11:59 11:59 Intake Total 480 1282 Output Total 400 200 Balance 80 1082 Weight 82.7 kg 82.4 kg Lab Results: Lab Results-Last 24 Hours 06/29/24 06/29/24 06/29/24 Range/Units 06:26 06:26 07:13 WBC 7.7 (4.23-9.07) x10^3/uL RBC 4.11 L (4.63-6.08) x10^6/uL Hgb 13.4 L (13.7-17.5) g/dL Hct 40.0 L (40.1-51.0) % MCV 97.3 H (79.0-92.2) fL MCH 32.6 H (25.7-32.2) pg MCHC 33.5 (32.3-36.5) g/dL RDW 13.6 (11.6-14.4) % Plt Count 149 L (163-337) x10^3/uL MPV 9.2 L (9.4-12.4) fL Sodium 133 L (135-145) mmol/L Potassium 4.3 (3.5-5.1) mmol/L Chloride 101 (98-107) mmol/L Carbon Dioxide 20 L (22-30) mmol/L Anion Gap 16.3 H (5-15) MEQ/L BUN 21 H (9-20) mg/dL Creatinine 0.82 (0.66-1.25) mg/dL Estimated GFR 84.0 ML/MIN Glucose 137 H (74-106) mg/dL POC Glucometer 159 H (74 to 106) mg/dL Calcium 7.9 L (8.4-10.2) mg/dL Prealbumin 15.14 L (17.6-36.0) mg/dL 06/29/24 06/29/24 06/29/24 Range/Units 11:39 16:17 20:03 WBC (4.23-9.07) x10^3/uL RBC (4.63-6.08) x10^6/uL Hgb (13.7-17.5) g/dL Hct (40.1-51.0) % MCV (79.0-92.2) fL MCH (25.7-32.2) pg MCHC (32.3-36.5) g/dL RDW (11.6-14.4) % Plt Count (163-337) x10^3/uL MPV (9.4-12.4) fL Sodium (135-145) mmol/L Potassium (3.5-5.1) mmol/L Chloride (98-107) mmol/L Carbon Dioxide (22-30) mmol/L Anion Gap (5-15) MEQ/L BUN (9-20) mg/dL Creatinine (0.66-1.25) mg/dL Estimated GFR ML/MIN Glucose (74-106) mg/dL POC Glucometer 155 H 106 98 (74 to 106) mg/dL Calcium (8.4-10.2) mg/dL Prealbumin (17.6-36.0) mg/dL Radiology Exams: Radiology Procedures Category Date Time Status CHEST 1 VIEW (PORTABLE) Stat Exams 06/28/24 11:45 Completed Assessment/Plan (1) Influenza A Current Visit: Yes Status: Acute Assessment & Plan: -CXR reviewed with no acute findings -Supportive care with anti-pyrectics, anti-emetics, IVF -Tamiflu -Supplemental oxygen as needed to maintain spo2 goal > 92% 06/29: -continue tamiflu -bcult x 1 positive? contamination -WBC reviewed and wnl at 7.7 - hold abx for now Code(s): J10.1 - FLU DUE TO OTH IDENT INFLUENZA VIRUS W OTH RESP MANIFEST (2) Generalized weakness Current Visit: Yes Status: Acute Assessment & Plan: -Could be multifactorial with influenza -PT eval when able Code(s): R53.1 - WEAKNESS (3) HLD (hyperlipidemia) Current Visit: No Status: Acute Assessment & Plan: -continue home statin Code(s): E78.5 - HYPERLIPIDEMIA, UNSPECIFIED (4) HTN (hypertension) Current Visit: No Status: Acute Assessment & Plan: -continue home meds- bp stable Code(s): I10 - ESSENTIAL (PRIMARY) HYPERTENSION (5) CAD (coronary artery disease) Current Visit: No Status: Acute Assessment & Plan: -Reviewed echo from 05/17/23 EF estimated at 55-60% 1) NORMAL CONTRACTILITY OF THE LEFT VENTRICLE. 2) MODERATE LEFT ATRIAL DILATATION. 3) MILD TRICUSPID REGURGITATION. 4) TRACE AMOUNT OF PULMONIC REGURGITATION. -trops x 2 negative -continue home meds Code(s): I25.10 - ATHSCL HEART DISEASE OF [place] CORONARY ARTERY W/O ANG PCTRS (6) Type 2 diabetes mellitus Current Visit: No Status: Acute Assessment & Plan: -ADA diet -SSI/glargine -a1c 8.48 04/16/24 - poor control VTE: Lovenox Dispo: 1-2 days Code status: Full Code(s): J10.1 - FLU DUE TO OTH IDENT INFLUENZA VIRUS W OTH RESP MANIFEST (2) Generalized weakness Current Visit: Yes Status: Acute Code(s): R53.1 - WEAKNESS (3) HLD (hyperlipidemia) Current Visit: No Status: Acute Code(s): E78.5 - HYPERLIPIDEMIA, UNSPECIFIED (4) HTN (hypertension) Current Visit: No Status: Acute Code(s): I10 - ESSENTIAL (PRIMARY) HYPERTENSION (5) CAD (coronary artery disease) Current Visit: No Status: Acute Code(s): I25.10 - ATHSCL HEART DISEASE OF [place] CORONARY ARTERY W/O ANG PCTRS (6) Type 2 diabetes mellitus Current Visit: No Status: Acute
[2024-06-30 06:16] VITALS: BP 139/72
[2024-06-30 06:24] LABS: Absolute Neutrophil Ct (ANC) 3.49 x10^3/uL (1.78-5.38); Basophil (Absolute #) 0.06 x10^3/uL (0.01-0.08); Eosinophil % 0.2 % (0.8-7.0); Eosinophil (Absolute #) 0.01 x10^3/uL (0.04-0.54); Hematocrit 39.3 % (40.1-51.0); Hemoglobin 13.1 g/dL (13.7-17.5); IMMATURE GRAN # 0.02 x10^3u/L (0.001-0.031); IMMATURE GRAN % 0.3 % (0.001-0.429); Lymphocyte (Absolute #) 1.67 x10^3/uL (1.32-3.57); Lymphocytes % 27.3 % (21.8-53.1); Mean Cell Volume 97.3 fL (79.0-92.2); Mean Corpuscular Hemoglobin 32.4 pg (25.7-32.2); Mean Corpuscular Hgb Concent. 33.3 g/dL (32.3-36.5); Monocyte (Absolute #) 0.87 x10^3/uL (0.30-0.82); Monocytes % 14.2 % (5.3-12.2); Platelet Count 156 x10^3/uL (163-337); Red Blood Count 4.04 x10^6/uL (4.63-6.08); Red Cell Distribution Width 13.6 % (11.6-14.4); White Blood Count 6.1 x10^3/uL (4.23-9.07)
[2024-06-30 06:47] LABS: ALBUMIN 3.4 g/dL (3.5-5.0); BILIRUBIN,TOTAL 0.5 mg/dL (0.2-1.3); Calcium 7.9 mg/dL (8.4-10.2); Creatinine 1 0.76 mg/dL (0.66-1.25); EST GLOMERULAR FILTRATION RATE 85.9 ML/MIN; Potassium 3.9 mmol/L (3.5-5.1); Total Protein 5.9 g/dL (6.3-8.2)
[2024-06-30] MEDS ORDERED: NON-FORMULARY ITEM (Exenatide Microspheres [Bydureon Bcise] 2 MG/0.85 ML Auto.Injct) SQ SCH (07:15)
[2024-06-30] MEDS ORDERED: MEDICATION INTERVENTION MC SCH (08:00)
[2024-06-30] MEDS: THERAGRAN MULTIVITAMIN PO SCH (10:30)
[2024-06-30] MEDS: Lanoxin 0.125MG TABLET PO SCH (10:30)
[2024-06-30] MEDS: Coreg 3.125 MG PO SCH (10:30)
[2024-06-30] MEDS: NEURONTIN PO SCH (10:30)
[2024-06-30] MEDS: PLAVIX Tablet PO SCH (10:30)
[2024-06-30] MEDS: VITAMIN D PO SCH (10:30)
[2024-06-30] MEDS: ECOTRIN 81 MG PO SCH (10:30)
[2024-06-30] MEDS: Lantus Insulin SQ SCH (10:38)
[2024-06-30] MEDS: Acidophilus TABLET PO SCH (11:18)
[2024-06-30 11:43] VITALS: PULSE 81; RESP 22; TEMP 97.5; O2SAT 91
--- NOTE | 2024-06-30 12:58 | PCM.DS ---
Discharge Summary Date of Admission: 06/28/24 17:17 Date of Discharge: 06/30/24 Admitting Physician: KELVIN REED MD Primary Care Provider: ROWENA VIEYRA Allergies Allergies No Known Drug Allergies Allergy (Verified 05/20/24 13:18) Hospital Summary - Hospital Course Hospital Course: Mr. Colindres is an 88 year old male with a pmhx of DMII, HLD, CAD, HTN and BPH who presented to ED 06/28/24 with complaints of weakness and incontinence. Patient is [place] and a poor historian. Reports weakness is so severe he has been unable to care for himself at home. States he was unable to get up to go to the bathroom and had several incontinence episodes while waiting for family to arrive and help. Denies fever, shortness of breath, nausea, vomiting, diarrhea, headache. No recent sick contacts that he knows of. Upon arrival to ED, patient hypertensive and tachycardic. EKG per ED read -RATE (109), Sinus Tach, Left [place] Deviation, Other (QTc = 485). CXR with no acute findings. Labs remarkable for mild leukocytosis with WBC at 10.3 and FLU A positive. Patient given IVF bolus, ceftriaxone, and azithromycin in ED. Admit for influenza A and generalized weakness. Appetite and energy level now improved. Patient and daughter endorse he is at his baseline. Blood cultures x 1 positive-? if this may be contamination. Pending results. Will continue Tamiflu for now. Blood cultures repeated. Discussed with daughter who is a nurse the blood culture reports. I do believe this is contamination. Will follow repeat cultures. No leukocytosis, fever, or any symptoms of infection. Daughter agrees with plan - agrees with discharge home today. Discharge Note New Diagnosis: FluA New Medications: [place] Follow Up: PCP Results pending: Repeat Blood culture O Latest Assessment & Plan 1) Influenza A Current Visit: Yes Status: Acute Assessment & Plan: -CXR reviewed with no acute findings -Supportive care with anti-pyrectics, anti-emetics, IVF -Tamiflu -Supplemental oxygen as needed to maintain spo2 goal > 92% 06/29: -continue tamiflu -bcult x 1 positive? contamination -WBC reviewed and wnl at 7.7 - hold abx for now Code(s): J10.1 - FLU DUE TO OTH IDENT INFLUENZA VIRUS W OTH RESP MANIFEST (2) Generalized weakness Current Visit: Yes Status: Acute Assessment & Plan: -Could be multifactorial with influenza -PT eval when able Code(s): R53.1 - WEAKNESS (3) HLD (hyperlipidemia) Current Visit: No Status: Acute Assessment & Plan: -continue home statin Code(s): E78.5 - HYPERLIPIDEMIA, UNSPECIFIED (4) HTN (hypertension) Current Visit: No Status: Acute Assessment & Plan: -continue home meds- bp stable Code(s): I10 - ESSENTIAL (PRIMARY) HYPERTENSION (5) CAD (coronary artery disease) Current Visit: No Status: Acute Assessment & Plan: -Reviewed echo from 05/17/23 EF estimated at 55-60% 1) NORMAL CONTRACTILITY OF THE LEFT VENTRICLE. 2) MODERATE LEFT ATRIAL DILATATION. 3) MILD TRICUSPID REGURGITATION. 4) TRACE AMOUNT OF PULMONIC REGURGITATION. -trops x 2 negative -continue home meds Code(s): I25.10 - ATHSCL HEART DISEASE OF [place] CORONARY ARTERY W/O ANG PCTRS (6) Type 2 diabetes mellitus Current Visit: No Status: Acute Assessment & Plan: -ADA diet -SSI/glargine -a1c 8.48 04/16/24 - poor control I spent 35 minutes [id number] with the patient on the day of discharge performing discharge exam, discussing hospital stay and discharge instructions with patient and caregivers, preparation of discharge records, prescriptions & referral forms and addressing any questions/concerns the patient had as documented above. - Vitals & Intake/Output Vital Signs: Vital Signs Temperature 97.5 F 06/30/24 11:00 Pulse Rate 81 06/30/24 11:00 Respiratory Rate 22 06/30/24 11:00 Blood Pressure 139/72 06/30/24 11:00 O2 Sat by Pulse Oximetry 91 L 06/30/24 11:00 Intake & Output: Intake & Output 06/28/24 06/29/24 06/30/24 07/01/24 11:59 11:59 11:59 11:59 Intake Total 480 2124 Output Total 400 625 Balance 80 1499 Weight 82.7 kg 82.4 kg 86.2 kg - Lab Result Diagrams: 06/30/24 06:15 06/30/24 06:15 Lab Results-Last 24 Hrs: Lab Results-Last 24 Hours 06/29/24 06/29/24 06/30/24 Range/Units 16:17 20:03 06:15 WBC 6.1 (4.23-9.07) x10^3/uL RBC 4.04 L (4.63-6.08) x10^6/uL Hgb 13.1 L (13.7-17.5) g/dL Hct 39.3 L (40.1-51.0) % MCV 97.3 H (79.0-92.2) fL MCH 32.4 H (25.7-32.2) pg MCHC 33.3 (32.3-36.5) g/dL RDW 13.6 (11.6-14.4) % Plt Count 156 L (163-337) x10^3/uL MPV 9.0 L (9.4-12.4) fL Gran % 57.0 (34.0-67.9) % Immature Gran % (Auto) 0.3 (0.001-0.429) % Nucleat RBC Rel Count 0.0 (0.00-0.2) % Eos # (Auto) 0.01 L (0.04-0.54) x10^3/uL Immature Gran # (Auto) 0.02 (0.001-0.031) x10^3u/L Absolute Lymphs (auto) 1.67 (1.32-3.57) x10^3/uL Absolute Monos (auto) 0.87 H (0.30-0.82) x10^3/uL Absolute Nucleated RBC 0.00 (0.00-0.012) x10^3u/L Lymphocytes % 27.3 (21.8-53.1) % Monocytes % 14.2 H (5.3-12.2) % Eosinophils % 0.2 L (0.8-7.0) % Basophils % 1.0 (0.2-1.2) % Absolute Granulocytes 3.49 (1.78-5.38) x10^3/uL Basophils # 0.06 (0.01-0.08) x10^3/uL Sodium (135-145) mmol/L Potassium (3.5-5.1) mmol/L Chloride (98-107) mmol/L Carbon Dioxide (22-30) mmol/L Anion Gap (5-15) MEQ/L BUN (9-20) mg/dL Creatinine (0.66-1.25) mg/dL Estimated GFR ML/MIN Glucose (74-106) mg/dL POC Glucometer 106 98 (74 to 106) mg/dL Calcium (8.4-10.2) mg/dL Total Bilirubin (0.2-1.3) mg/dL AST (17-59) U/L ALT (0-50) U/L Alkaline Phosphatase (38-126) U/L Serum Total Protein (6.3-8.2) g/dL Albumin (3.5-5.0) g/dL 06/30/24 06/30/24 06/30/24 Range/Units 06:15 07:24 11:28 WBC (4.23-9.07) x10^3/uL RBC (4.63-6.08) x10^6/uL Hgb (13.7-17.5) g/dL Hct (40.1-51.0) % MCV (79.0-92.2) fL MCH (25.7-32.2) pg MCHC (32.3-36.5) g/dL RDW (11.6-14.4) % Plt Count (163-337) x10^3/uL MPV (9.4-12.4) fL Gran % (34.0-67.9) % Immature Gran % (Auto) (0.001-0.429) % Nucleat RBC Rel Count (0.00-0.2) % Eos # (Auto) (0.04-0.54) x10^3/uL Immature Gran # (Auto) (0.001-0.031) x10^3u/L Absolute Lymphs (auto) (1.32-3.57) x10^3/uL Absolute Monos (auto) (0.30-0.82) x10^3/uL Absolute Nucleated RBC (0.00-0.012) x10^3u/L Lymphocytes % (21.8-53.1) % Monocytes % (5.3-12.2) % Eosinophils % (0.8-7.0) % Basophils % (0.2-1.2) % Absolute Granulocytes (1.78-5.38) x10^3/uL Basophils # (0.01-0.08) x10^3/uL Sodium 133 L (135-145) mmol/L Potassium 3.9 (3.5-5.1) mmol/L Chloride 101 (98-107) mmol/L Carbon Dioxide 21 L (22-30) mmol/L Anion Gap 15.0 (5-15) MEQ/L BUN 19 (9-20) mg/dL Creatinine 0.76 (0.66-1.25) mg/dL Estimated GFR 85.9 ML/MIN Glucose 94 (74-106) mg/dL POC Glucometer 93 155 H (74 to 106) mg/dL Calcium 7.9 L (8.4-10.2) mg/dL Total Bilirubin 0.50 (0.2-1.3) mg/dL AST 45 (17-59) U/L ALT 22 (0-50) U/L Alkaline Phosphatase 62 (38-126) U/L Serum Total Protein 5.9 L (6.3-8.2) g/dL Albumin 3.4 L (3.5-5.0) g/dL Micro Results-Entire Visit: Microbiology 06/28/24 12:04 Urine Culture - Preliminary Urine, Void <10K NORMAL SKIN JAGRUTI PROBABLE SKIN CONTAMINANT 06/28/24 12:15 Blood Culture Gram Stain - Final Blood 06/28/24 12:21 Blood Culture - Preliminary Blood Accuchecks Date 06/30/24 Date 06/30/24 Date 06/29/24 Date 06/29/24 Time 11:43 Time 07:58 Time 16:57 - Procedures and Test Procedures and Tests throughout Hospitalization: Therapy Orders & Screens 06/28/24 18:41 PT Eval & Treat (MD Order) ONCE Reason for Eval:: weakness Diagnosis: Generalized weakness; Influenza A OT Eval and Treat (MD Order) ONCE Comment: Physician Instructions: Reason For Exam: Diagnosis: Generalized weakness; Influenza A Discharge Exam General Appearance: no apparent distress Neurologic Exam: alert, oriented x 3, cooperative Eye Exam: PERRL Ears, Nose, Throat Exam: normal ENT inspection Neck Exam: normal inspection Respiratory Exam: normal breath sounds, lungs clear Cardiovascular Exam: regular rate/rhythm, normal heart sounds Gastrointestinal/Abdomen Exam: soft, normal bowel sounds Male Genitalia Exam: deferred Rectal Exam: deferred Back Exam: normal inspection Extremity Exam: normal inspection Final Diagnosis/Problem List - Final Discharge Diagnosis/Problem (1) Influenza A Current Visit: Yes Status: Acute Code(s): J10.1 - FLU DUE TO OTH IDENT INFLUENZA VIRUS W OTH RESP MANIFEST (2) Generalized weakness Current Visit: Yes Status: Acute Code(s): R53.1 - WEAKNESS (3) HLD (hyperlipidemia) Current Visit: No Status: Acute Code(s): E78.5 - HYPERLIPIDEMIA, UNSPECIFIED (4) HTN (hypertension) Current Visit: No Status: Acute Code(s): I10 - ESSENTIAL (PRIMARY) HYPERTENSION (5) CAD (coronary artery disease) Current Visit: No Status: Acute Code(s): I25.10 - ATHSCL HEART DISEASE OF [place] CORONARY ARTERY W/O ANG PCTRS (6) Type 2 diabetes mellitus Current Visit: No Status: Acute - Discharge Discharge Date: 06/30/24 Disposition: Home, Self-Care Condition: Stable Prescriptions: New Oseltamivir 75 mg [Tamiflu 75MG Capsule] 75 mg PO BID 3 Days #6 cap Continue Aspirin EC 81 mg [Ecotrin 81 mg] 81 mg PO DAILY Cholecalciferol (Vitamin D3) [Vitamin D3] 1 tab PO DAILY Carvedilol 3.125 mg [Coreg 3.125 MG] 3.125 mg PO BID Digoxin 125 mcg PO DAILY Clopidogrel Bisulfate [PLAVIX Tablet] 75 mg PO DAILY Empagliflozin [Jardiance] 25 mg PO DAILY Gabapentin [Neurontin ] 600 mg PO TID Mirabegron [Myrbetriq] 25 mg PO HS Multivitamin 1 tablet PO DAILY Glipizide/Metformin HCl [Glipizide-Metformin 5-500 mg] 1 each PO TID 30 Days #90 tablet Insulin Glargine [Lantus Insulin] 25 units SQ DAILY #750 unit MDD 25 Exenatide Microspheres [Bydureon Bcise] 2 mg SQ WEEKLY Follow up with: ROWENA VIEYRA MD [Primary Care Provider] -
[2024-06-30] MEDS ORDERED: MYRBETRIQ PO SCH (22:00)
== END 2024-06-30 13:47 | disposition home or self-care (01) ==
LOC: ED 11:11 → MED SURG 17:17
PROVIDERS: ADMIT Internal Medicine; ATTEND Internal Medicine
DX: J10.1 Influenza due to other identified influenza virus with other respiratory manifestations (principal); R53.1 Weakness; Z59.86 Financial insecurity; E78.5 Hyperlipidemia, unspecified; I10 Essential (primary) hypertension; I25.10 Atherosclerotic heart disease of native coronary artery without angina pectoris; E11.9 Type 2 diabetes mellitus without complications; N40.0 Benign prostatic hyperplasia without lower urinary tract symptoms; R00.0 Tachycardia, unspecified; Z79.899 Other long term (current) drug therapy; Z79.01 Long term (current) use of anticoagulants
CPT/HCPCS: 0241U; 36415; 71045; 80048; 80053; 81001; 82150; 82947; 83605; 83690; 83735; 84134; 84443; 84484; 85025; 85027; 86308; 87040; 87086; 87651; 93005; 93268; 96360; 96365; 96367; 99285; G0378; Q3014; J0456; J0696; J1650; J1817; A9270-GY